=== PATIENT | male | born 1955 | race Caucasian/White ===

== ENCOUNTER 2020-09-20 13:59 | Inpatient (IN) | payer OTHER ==
[~2020-09-20] VITALS: Ht 185.4 cm; Wt 99.0 kg
[~2020-09-20 13:59] MED LIST: FENO145T3 PO; INDO50CA15 PO; METF10007 PO; METO-239 PO; PANT40TA77 PO; SIMV20TA18 PO
[2020-09-20] MEDS ORDERED: DEXAMETHASONE SOD PHOS 20 MG/5 ML VIAL. IV ONE (14:30)
[2020-09-20] MEDS ORDERED: IV NORMAL SALINE 1000ML BAG 1,000 ML IV ONE (14:30)
--- NOTE | 2020-09-20 14:44 | RAD ---
EXAM: CHEST ONE VIEW. HISTORY: Fever, cough. COMPARISON: 1116. FINDINGS: A frontal view of the chest is obtained. There are interstitial infiltrates in the left greater than right bases. There were similar infiltrat es in 2016. There is no pneumothorax or pleural effusion. The heart is not enlarged. There are change s of coronary artery bypass grafting. IMPRESSION: 1. Left greater than right basilar infiltrates appear chronic. These may reflect recurrent atypical p neumonia or mild pulmonary edema, or interstitial lung disease. Electronically signed by: Urban Devlin MD (09/20/2020 2:42 PM) [id number]
[2020-09-20 15:08] LABS: BASO % 0 % (0-3); EOS % 0 % (0-3); HEMATOCRIT 44.3 % (39.0-53.0); HEMOGLOBIN 15.5 g/dL (13.0-17.5); LYMPH # 0.5 x10^3/uL (1.0-4.8); LYMPH % 18 % (24-48); MEAN CORPUSCULAR HEMOGLOBIN 30 pg (25-35); MEAN CORPUSCULAR HGB CONC 35 g/dL (31-37); MEAN CORPUSCULAR VOLUME 85 fL (79-100); MONO # 0.4 x10^3/uL (0.0-1.1); MONO % 13 % (0-9); NEUT % 69 % (31-73); PLATELET COUNT 105 x10^3/uL (140-400); RED BLOOD COUNT 5.23 x10^6/uL (4.30-5.70); RED CELL DISTRIBUTION WIDTH 13.8 % (11.5-14.5); WHITE BLOOD COUNT 2.9 x10^3/uL (4.0-11.0)
--- NOTE | 2020-09-20 15:27 | PHYS DOC ---
Past Medical History Past Medical History: Diabetes-Type II, GERD, High Cholesterol, Hypertension, Other Additional Past Medical Histor: GOUT (RAFYALICIA Ignacio PEOPLE MANAGER) Past Surgical History: Other Additional Past Surgical Histo: RIGHT LEG, STENT PLACEMENT (RAFYALICIA Ignacio PEOPLE MANAGER) Smoking Status: Never Smoker Alcohol Use: None Drug Use: None (ALICIA HILLMAN Ignacio PEOPLE MANAGER) General Adult EDM: Chief Complaint: SHORTNESS OF BREATH HPI: HPI: Patient is a 65 year old male with history of diabetes type 2, hypertension, high cholesterol, who presents today complaining of Covid symptoms. Patient states he got diagnosed with COVID-19 09/11/2020. He states since then he has had increased cough, shortness of breath, vomiting and diarrhea. He states symptoms got worse this morning. He states the and other family members have similar symptoms. Patient is unvaccinated against COVID-19. (ALICIA HILLMAN Ignacio PEOPLE MANAGER) Review of Systems: Review of Systems: Constitutional: Reports fever Eyes: Denies change in visual acuity. [] HENT: Denies nasal congestion or sore throat. [] Respiratory: Reports cough and shortness of breath. [] Cardiovascular: Denies chest pain or edema. [] GI: Reports vomiting and diarrhea. Denies abdominal pain, nausea, vomiting, bloody stools or diarrhea. [] : Denies dysuria. [] Musculoskeletal: Denies back pain or joint pain. [] Integument: Denies rash. [] Neurologic: Denies headache, focal weakness or sensory changes. [] Psychiatric: Denies depression or anxiety. [] (RUSSELJCChagoALICIA Pierre PEOPLE MANAGER) Heart Score: C/O Chest Pain: N/A Risk Factors: Risk Factors: DM, Current or recent (<one month) smoker, HTN, HLP, family history of CAD, obesity. Risk Scores: Score 0 - 3: 2.5% MACE over next 6 weeks - Discharge Home Score 4 - 6: 20.3% MACE over next 6 weeks - Admit for Clinical Observation Score 7 - 10: 72.7% MACE over next 6 weeks - Early Invasive Strategies (ALICIA HILLMAN PEOPLE MANAGER) Current Medications: Current Medications Medications (Trade) Dose Ordered Sig/Khadar Start Time Stop Time Status Last Admin Dose Admin Acetaminophen (Tylenol) 1,000 mg 1X ONCE 09/20/20 15:30 09/20/20 15:31 Dexamethasone Sodium Phosphate (Decadron) 10 mg 1X ONCE 09/20/20 14:30 09/20/20 14:31 DC 09/20/20 14:50 10 MG Piperacillin Sod/ Tazobactam Sod 3.375 gm/Sodium Chloride 50 ml @ 100 mls/hr 1X ONCE 09/20/20 15:30 09/20/20 15:59 Sodium Chloride 1,000 ml @ 1,000 mls/hr 1X ONCE 09/20/20 14:30 09/20/20 15:29 09/20/20 14:45 1,000 MLS/HR (ALICIA HILLMAN PEOPLE MANAGER) Allergies: Allergies: Allergies Coded Allergies Type Severity Reaction Last Updated Verified No Known Drug Allergies 11/20/15 No (ALICIA HILLMAN PEOPLE MANAGER) Physical Exam: PE: Constitutional: Well developed, well nourished, no acute distress, non-toxic appearance. [] HENT: Normocephalic, atraumatic, bilateral external ears normal, oropharynx moist, no oral exudates, nose normal. [] Eyes: PERRLA, EOMI, conjunctiva normal, no discharge. [] Neck: Normal range of motion, no tenderness, supple, no stridor. [] Cardiovascular:Heart rate regular rhythm Lungs & Thorax: Hypoxic, diminished breath sounds Abdomen: Bowel sounds normal, soft, no tenderness, no masses, no pulsatile masses. [] Skin: Warm, dry, no erythema, no rash. [] Back: No tenderness, no CVA tenderness. [] Extremities: No tenderness, no cyanosis, no clubbing, ROM intact, no edema. [] Neurologic: Alert and oriented X 3, normal motor function, normal sensory function, no focal deficits noted. [] Psychologic: Affect normal, judgement normal, mood normal. [] (ALICIA HILLMAN PEOPLE MANAGER) Current Patient Data: Labs: Laboratory Tests Test 09/20/20 14:54 White Blood Count 2.9 x10^3/uL (4.0-11.0) L Red Blood Count 5.23 x10^6/uL (4.30-5.70) Hemoglobin 15.5 g/dL (13.0-17.5) Hematocrit 44.3 % (39.0-53.0) Mean Corpuscular Volume 85 fL (79-100) Mean Corpuscular Hemoglobin 30 pg (25-35) Mean Corpuscular Hemoglobin Concent 35 g/dL (31-37) Red Cell Distribution Width 13.8 % (11.5-14.5) Platelet Count 105 x10^3/uL (140-400) L Neutrophils (%) (Auto) 69 % (31-73) Lymphocytes (%) (Auto) 18 % (24-48) L Monocytes (%) (Auto) 13 % (0-9) H Eosinophils (%) (Auto) 0 % (0-3) Basophils (%) (Auto) 0 % (0-3) Neutrophils # (Auto) 2.0 x10^3/uL (1.8-7.7) Lymphocytes # (Auto) 0.5 x10^3/uL (1.0-4.8) L Monocytes # (Auto) 0.4 x10^3/uL (0.0-1.1) Eosinophils # (Auto) 0.0 x10^3/uL (0.0-0.7) Basophils # (Auto) 0.0 x10^3/uL (0.0-0.2) Laboratory Tests 09/20/20 14:54 Vital Signs: Vital Signs Date Time Temp Pulse Resp B/P (MAP) Pulse Ox O2 Delivery O2 Flow Rate FiO2 09/20/20 14:14 102.5 83 22 151/70 95 Nasal Cannula 3.0 102.5 (ALICIA HILLMAN PEOPLE MANAGER) EKG: EK interpreted by Dr. Moralez, sinus rhythm heart rate 82 no STEMI (ALICIA HILLMAN PEOPLE MANAGER) Radiology/Procedures: Radiology/Procedures: []PROCEDURE: PORTABLE CHEST 1V EXAM: CHEST ONE VIEW. HISTORY: Fever, cough. COMPARISON: 1116. FINDINGS: A frontal view of the chest is obtained. There are interstitial infiltrates in the left greater than right bases. There were similar infiltrates in 2016. There is no pneumothorax or pleural effusion. The heart is not enlarged. There are changes of coronary artery bypass grafting. IMPRESSION: 1. Left greater than right basilar infiltrates appear chronic. These may reflect recurrent atypical pneumonia or mild pulmonary edema, or interstitial lung disease. Electronically signed by: Urban Devlin MD (09/20/2020 2:42 PM) [id number] DICTATED and SIGNED BY: JOE DEVLIN MD DATE: 09/20/20 [id number] (ALICIA HILLMAN APRN) Course & Med Decision Making: Course & Med Decision Making Pertinent Labs and Imaging studies reviewed. (See chart for details) This is a 65-year-old male patient Covid positive presented today with worsening cough, shortness of breath, fever, vomiting and diarrhea. Patient was diagnosed with COVID-19 on 09/11/2020. Vitals on arrival to the ED temperature 102.5, heart rate 83, respiration 22, O2 sats 89% on room air, patient was put on 2 L of oxygen currently 95%. Blood pressure 151/70. CBC with a WBC of 2.9, CMP with nothing really acute Chest x-ray noted for chronic pneumonia Patient was given IV fluids, Zosyn, Tylenol, Decadron. Spoke to Dr. Ramirez who accepted patient for admission. (ALICIA HILLMAN APRN) Dragon Disclaimer: Dragon Disclaimer: This electronic medical record was generated, in whole or in part, using a voice recognition dictation system. 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 I was available for consultation as needed during the patient's visit in the emergency department. I agree with the clinical impression, plan, and disposition. (DIAZ MORALEZ DO) ALICIA HILLMAN APRN Sep 20, 2020 15:27 DIAZ MORALEZ DO Sep 21, 2020 14:17
[2020-09-20] MEDS ORDERED: PIPERACILLIN/TAZOBACTAM 3.375 GM in IV NORMAL SALINE 50ML 50 ML IV ONE (15:30)
[2020-09-20] MEDS ORDERED: ACETAMINOPHEN 500 MG TABLET PO ONE (15:30)
[2020-09-20 15:32] LABS: CALCIUM 8.6 mg/dL (8.5-10.1); CREATININE 1.1 mg/dL (0.7-1.3); GFR 67.6; POTASSIUM 3.3 mmol/L (3.5-5.1)
[2020-09-20 15:38] LABS: ALBUMIN 3.1 g/dL (3.4-5.0); ALBUMIN/GLOBULIN RATIO 0.8 (1.0-1.7); MAGNESIUM 1.9 mg/dL (1.8-2.4); TOTAL BILIRUBIN 0.6 mg/dL (0.2-1.0)
[2020-09-20] MEDS ORDERED: ACETAMINOPHEN 325 MG TABLET. PO PRN (15:45)
[2020-09-20] MEDS ORDERED: ONDANSETRON PF 4 MG/2 ML VIAL. IVP PRN ×2 (15:45→17:00)
[2020-09-20] MEDS ORDERED: DEXTROSE 50% 25 GM / 50ML DISP.SYRIN. IV PRN (15:45)
[2020-09-20] MEDS ORDERED: MORPHINE SULFATE 2 MG/ML INJ. IVP PRN (15:45)
--- NOTE | 2020-09-20 16:06 | EKG ---
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
[2020-09-20 16:15] VITALS: BP 155/67
[2020-09-20] MEDS ORDERED: guaiFENesin/CODEINE 100mg/10mg 5 ML LIQUID PO PRN (17:00)
[2020-09-20] MEDS ORDERED: PIP/TAZO PER PHARMACY MC PRN (17:00)
[2020-09-20] MEDS ORDERED: oxyCODONE/APAP 5/325 1 TAB TABLET PO PRN ×2 (17:00)
[2020-09-20] MEDS ORDERED: AZITHROMYCIN 250 MG TABLET. PO ONE (17:00)
[2020-09-20] MEDS ORDERED: ZOLPIDEM 5 MG TABLET. PO PRN (17:00)
[2020-09-20] MEDS ORDERED: CALCIUM CARBONATE 500 MG TAB.CHEW PO PRN (17:00)
[2020-09-20] MEDS ORDERED: ELECTROLYTE (NON-ICU) PROTOCOL. MC PRN (17:00)
[2020-09-20] MEDS ORDERED: POTASSIUM CHLORIDE 20 MEQ TABLET.ER. PO ONE (17:00)
[2020-09-20] MEDS: ENOXAPARIN 40 MG/0.4 ML SYRINGE. SQ SCH (17:35)
[2020-09-20] MEDS: PIPERACILLIN/TAZOBACTAM 3.375 GM in IV NORMAL SALINE 50ML 50 ML IV SCH (17:35)
[2020-09-20] MEDS: INSULIN LISPRO 300 UNITS/3 ML VIAL. SQ SCH (17:43)
[2020-09-20 19:00] VITALS: BP 136/66
--- NOTE | 2020-09-20 19:26 | PDOC1 ---
History and Physical Date of Service: DOS: DATE: 09/20/20 TIME: 19:18 Chief Complaint: Problems: (1) DM2 (diabetes mellitus, type 2) (2) Lab test positive for detection of COVID-19 virus (3) COVID (4) Bilateral pulmonary infiltrates on CXR (5) Hypoxia (6) Fever Chief Complain: Shortness of breath, cough History of Present Illness: HPI: Patient is a 65-year-old white male presenting today due to worsening cough and shortness of breath; patient also experiencing vomiting and diarrhea. Patient was recently diagnosed with COVID-19 on September 11 and has been doing well since that until a few days ago when his symptoms acutely worsened this morning. Has not received Covid vaccine. Close contacts at home have very similar symptoms. History notable for hypertension, type 2 diabetes, hyperlipidemia, GERD. Past Medical/Surgical History: PMH/PSH: Type 2 diabetes, hypertension, hyperlipidemia, GERD Allergies: Allergies: Coded Allergies: No Known Drug Allergies (Unverified , 11/20/15) Family History: Family History: Noncontributory Social History: Social History: Denies alcohol tobacco drug use Current Medications: Current Medications Current Medications Sodium Chloride 1,000 ml @ 1,000 mls/hr 1X ONCE IV Last administered on 09/20/20at 14:45; Start 09/20/20 at 14:30; Stop 09/20/20 at 15:29; Status DC Dexamethasone Sodium Phosphate (Decadron) 10 mg 1X ONCE IV Last administered on 09/20/20at 14:50; Start 09/20/20 at 14:30; Stop 09/20/20 at 14:31; Status DC Piperacillin Sod/ Tazobactam Sod 3.375 gm/Sodium Chloride 50 ml @ 100 mls/hr 1X ONCE IV Last administered on 09/20/20at 15:22; Start 09/20/20 at 15:30; Stop 09/20/20 at 15:59; Status DC Acetaminophen (Tylenol) 1,000 mg 1X ONCE PO Last administered on 09/20/20at 15:22; Start 09/20/20 at 15:30; Stop 09/20/20 at 15:31; Status DC Ondansetron HCl (Zofran) 4 mg PRN Q8HRS PRN IVP NAUSEA/VOMITING; Start 09/20/20 at 15:45; Stop 09/20/20 at 17:11; Status DC Morphine Sulfate (Morphine Sulfate) 2 mg PRN Q2HR PRN IVP PAIN; Start 09/20/20 at 15:45; Stop 09/21/20 at 15:44 Acetaminophen (Tylenol) 650 mg PRN Q4HRS PRN PO FEVER > 100.3'F; Start 09/20/20 at 15:45; Stop 09/21/20 at 15:44; Status Cancel Insulin Human Lispro (HumaLOG) 0-5 UNITS TIDWMEALS SQ Last administered on 09/20/20at 17:43; Start 09/20/20 at 17:00 Dextrose (Dextrose 50%-Water Syringe) 12.5 gm PRN Q15MIN PRN IV SEE COMMENTS; Start 09/20/20 at 15:45 Ondansetron HCl (Zofran) 4 mg PRN Q6HRS PRN IVP NAUSEA/VOMITING; Start 09/20/20 at 17:00 Calcium Carbonate/ Glycine (Tums) 500 mg PRN Q3HRS PRN PO UPSET STOMACH; Start 09/20/20 at 17:00 Zolpidem Tartrate (Ambien) 5 mg PRN QHS PRN PO INSOMNIA, MAY REPEAT IN 1HR; Start 09/20/20 at 17:00 Info (Non-Icu Electrolyte Protocol) 1 ea PRN DAILY PRN MC SEE COMMENTS; Start 09/20/20 at 17:00 Oxycodone/ Acetaminophen (Percocet 5/325) 1 tab PRN Q4HRS PRN PO MILD PAIN, 1ST CHOICE; Start 09/20/20 at 17:00 Oxycodone/ Acetaminophen (Percocet 5/325) 2 tab PRN Q4HRS PRN PO MODERATE PAIN, SEVERE PAIN; Start 09/20/20 at 17:00 Acetaminophen (Tylenol) 650 mg PRN Q6HRS PRN PO Headaches, Temp > 101.5F; Start 09/20/20 at 17:00 Senna/Docusate Sodium (Senna Plus) 1 tab BID PO ; Start 09/20/20 at 21:00 Enoxaparin Sodium (Lovenox 40mg Syringe) 40 mg Q12HR SQ Last administered on 09/20/20at 17:35; Start 09/20/20 at 17:00 Potassium Chloride (Klor-Con) 40 meq 1X ONCE PO Last administered on 09/20/20at 17:34; Start 09/20/20 at 17:00; Stop 09/20/20 at 17:06; Status DC Piperacillin Sod/ Tazobactam Sod (Zosyn Per Pharmacy) 1 each PRN DAILY PRN MC SEE COMMENTS; Start 09/20/20 at 17:00 Azithromycin (Zithromax) 500 mg 1X ONCE PO Last administered on 09/20/20at 17:34; Start 09/20/20 at 17:00; Stop 09/20/20 at 17:07; Status DC Dexamethasone Sodium Phosphate (Decadron) 6 mg DAILY IVP ; Start 09/21/20 at 09:00 Guaifenesin/ Codeine Phosphate (Robitussin Ac) 5 ml PRN Q6HRS PRN PO COUGH; Start 09/20/20 at 17:00 Multivitamins (Thera M Plus) 1 tab DAILY PO ; Start 09/21/20 at 09:00 Aspirin (Aspirin Chewable) 81 mg DAILYWBKFT PO ; Start 09/21/20 at 08:00 Metoprolol Succinate (Toprol Xl) 12.5 mg HS PO ; Start 09/20/20 at 21:00 Pantoprazole Sodium (Protonix) 40 mg DAILYAC PO ; Start 09/21/20 at 07:30 Simvastatin (Zocor) 20 mg QHS PO ; Start 09/20/20 at 21:00 Piperacillin Sod/ Tazobactam Sod 3.375 gm/Sodium Chloride 50 ml @ 100 mls/hr Q6HRS IV Last administered on 09/20/20at 17:35; Start 09/20/20 at 18:00 Active Scripts Active Reported Indomethacin 50 Mg Capsule 50 Mg PO Q6-8HRS PRN Fenofibrate (Fenofibrate Nanocrystallized) 145 Mg Tablet 1 Tab PO DAILY Pantoprazole Sodium (Pantoprazole Sodium) 40 Mg Tablet.dr 40 PO DAILY Metoprolol Succinate ( Xl ) (Metoprolol Succinate) 25 Mg Tab.er.24h 0.5 Tab PO HS Simvastatin 20 Mg Tablet 1 Tab PO QHS ROS: Review of Systems Review of System Negative unless noted in HPI Physical Exam: Vital Signs: Vital Signs Date Time Temp Pulse Resp B/P (MAP) Pulse Ox O2 Delivery O2 Flow Rate FiO2 09/20/20 17:04 Nasal Cannula 3.0 09/20/20 16:15 100.5 80 20 155/67 (96) 93 100.5 Physcial Exam: GEN: Patient mild respiratory distress HEENT: Normal cephalic, atraumatic, external auditory canals are patent EYES: Extraocular muscles are intact MUSCULOSKELETAL: Well developed , well nourished, good range of motion ENDOCRINE: No thyromegaly was palpated LYMPHATICS: No cervical chain or axillary nodes were noted HEMATOPOIETIC: No bruising NECK: Supple, no JVD, no thyromegaly was noted LUNGS: Patient requiring supplemental O2, coarse breath sounds, mildly labored respirations HEART: RRR, S1, S2 present. Peripheral pulses intact, no obvious murmurs noted ABDOMEN: Soft, nontender. Positive bowel sounds, no organomegaly, normal bowel sounds EXTREMITIES: Without clubbing, cyanosis, or edema. Pedal pulses intact. NEUROLOGIC: Normal speech and tone. A&O x 3, moves all extremities, no obvious focal deficits PSYCHIATRIC: Normal affect, normal mood. Stable SKIN: No ulcerations or rashes, good skin turgor, no jaundice VASCULAR: Good capillary refill, neurovascular bundle appears to be intact Labs: Labs: Laboratory Tests Test 09/20/20 14:54 09/20/20 17:16 White Blood Count 2.9 x10^3/uL (4.0-11.0) Red Blood Count 5.23 x10^6/uL (4.30-5.70) Hemoglobin 15.5 g/dL (13.0-17.5) Hematocrit 44.3 % (39.0-53.0) Mean Corpuscular Volume 85 fL (79-100) Mean Corpuscular Hemoglobin 30 pg (25-35) Mean Corpuscular Hemoglobin Concent 35 g/dL (31-37) Red Cell Distribution Width 13.8 % (11.5-14.5) Platelet Count 105 x10^3/uL (140-400) Neutrophils (%) (Auto) 69 % (31-73) Lymphocytes (%) (Auto) 18 % (24-48) Monocytes (%) (Auto) 13 % (0-9) Eosinophils (%) (Auto) 0 % (0-3) Basophils (%) (Auto) 0 % (0-3) Neutrophils # (Auto) 2.0 x10^3/uL (1.8-7.7) Lymphocytes # (Auto) 0.5 x10^3/uL (1.0-4.8) Monocytes # (Auto) 0.4 x10^3/uL (0.0-1.1) Eosinophils # (Auto) 0.0 x10^3/uL (0.0-0.7) Basophils # (Auto) 0.0 x10^3/uL (0.0-0.2) Sodium Level 135 mmol/L (136-145) Potassium Level 3.3 mmol/L (3.5-5.1) Chloride Level 100 mmol/L (98-107) Carbon Dioxide Level 21 mmol/L (21-32) Anion Gap 14 (6-14) Blood Urea Nitrogen 13 mg/dL (8-26) Creatinine 1.1 mg/dL (0.7-1.3) Estimated GFR (Cockcroft-Gault) 67.6 BUN/Creatinine Ratio 12 (6-20) Glucose Level 163 mg/dL (70-99) Lactic Acid Level 1.4 mmol/L (0.4-2.0) Calcium Level 8.6 mg/dL (8.5-10.1) Magnesium Level 1.9 mg/dL (1.8-2.4) Total Bilirubin 0.6 mg/dL (0.2-1.0) Aspartate Amino Transf (AST/SGOT) 70 U/L (15-37) Alanine Aminotransferase (ALT/SGPT) 48 U/L (16-63) Alkaline Phosphatase 46 U/L (46-116) Troponin I Quantitative < 0.017 ng/mL (0.000-0.055) RB-Ecp-P-Type Natriuretic Peptide 184 pg/mL (0-124) Total Protein 7.0 g/dL (6.4-8.2) Albumin 3.1 g/dL (3.4-5.0) Albumin/Globulin Ratio 0.8 (1.0-1.7) Thyroid Stimulating Hormone (TSH) 2.635 uIU/mL (0.358-3.74) Glucose (Fingerstick) 171 mg/dL (70-99) Laboratory Tests Test 09/20/20 14:54 09/20/20 17:16 White Blood Count 2.9 x10^3/uL (4.0-11.0) Red Blood Count 5.23 x10^6/uL (4.30-5.70) Hemoglobin 15.5 g/dL (13.0-17.5) Hematocrit 44.3 % (39.0-53.0) Mean Corpuscular Volume 85 fL (79-100) Mean Corpuscular Hemoglobin 30 pg (25-35) Mean Corpuscular Hemoglobin Concent 35 g/dL (31-37) Red Cell Distribution Width 13.8 % (11.5-14.5) Platelet Count 105 x10^3/uL (140-400) Neutrophils (%) (Auto) 69 % (31-73) Lymphocytes (%) (Auto) 18 % (24-48) Monocytes (%) (Auto) 13 % (0-9) Eosinophils (%) (Auto) 0 % (0-3) Basophils (%) (Auto) 0 % (0-3) Neutrophils # (Auto) 2.0 x10^3/uL (1.8-7.7) Lymphocytes # (Auto) 0.5 x10^3/uL (1.0-4.8) Monocytes # (Auto) 0.4 x10^3/uL (0.0-1.1) Eosinophils # (Auto) 0.0 x10^3/uL (0.0-0.7) Basophils # (Auto) 0.0 x10^3/uL (0.0-0.2) Sodium Level 135 mmol/L (136-145) Potassium Level 3.3 mmol/L (3.5-5.1) Chloride Level 100 mmol/L (98-107) Carbon Dioxide Level 21 mmol/L (21-32) Anion Gap 14 (6-14) Blood Urea Nitrogen 13 mg/dL (8-26) Creatinine 1.1 mg/dL (0.7-1.3) Estimated GFR (Cockcroft-Gault) 67.6 BUN/Creatinine Ratio 12 (6-20) Glucose Level 163 mg/dL (70-99) Lactic Acid Level 1.4 mmol/L (0.4-2.0) Calcium Level 8.6 mg/dL (8.5-10.1) Magnesium Level 1.9 mg/dL (1.8-2.4) Total Bilirubin 0.6 mg/dL (0.2-1.0) Aspartate Amino Transf (AST/SGOT) 70 U/L (15-37) Alanine Aminotransferase (ALT/SGPT) 48 U/L (16-63) Alkaline Phosphatase 46 U/L (46-116) Troponin I Quantitative < 0.017 ng/mL (0.000-0.055) LK-Hzg-I-Type Natriuretic Peptide 184 pg/mL (0-124) Total Protein 7.0 g/dL (6.4-8.2) Albumin 3.1 g/dL (3.4-5.0) Albumin/Globulin Ratio 0.8 (1.0-1.7) Thyroid Stimulating Hormone (TSH) 2.635 uIU/mL (0.358-3.74) Glucose (Fingerstick) 171 mg/dL (70-99) Assessment/Plan Assessment/Plan Patient presenting today due to worsening respiratory symptoms in light of recent Covid positive Acute hypoxic respiratory failure secondary to COVID-19 infection, nausea vomiting diarrhea, type 2 diabetes, hypertension, hyperlipidemia -Patient originally positive for Covid on September 11, presented here today due to acutely worsening symptoms -Does not use oxygen at home currently requiring 3 L here -Starting antibiotics with Zosyn and azithromycin -Pharmacy contacted to start remdesivir -Received 10 Decadron in emergency room, will start with 6 mg daily in the morning -Supplemental oxygen as needed -Symptomatic treatment for nausea vomiting diarrhea -Home meds resumed as indicated; started patient on sliding scale insulin -DVT prophylaxis -Diabetic diet -Plan of care discussed with bedside RN Justifications for Admission Other Justification ALCIDES PINEDA MD Sep 20, 2020 19:26
[2020-09-20] MEDS ORDERED: FLUT16SP NS (19:29)
[2020-09-20] MEDS ORDERED: MONT10TA20 PO (19:29)
[2020-09-20] MEDS ORDERED: FLUT1BLS3 INH (19:29)
[2020-09-20] MEDS ORDERED: BENZ200C47 PO (19:29)
[2020-09-20] MEDS ORDERED: LORA10TA3 PO (19:29)
[2020-09-20] MEDS ORDERED: METF10007 PO (19:29)
[2020-09-20] MEDS ORDERED: SEMA7TAB PO (19:29)
[2020-09-20] MEDS ORDERED: DAPA10TA PO (19:29)
[2020-09-20] MEDS ORDERED: ICOS1CAP2 PO (19:29)
[2020-09-20] MEDS ORDERED: REMDESIVIR LOAD in IV NORMAL SALINE 250ML TV IV ONE (20:00)
[2020-09-20] MEDS: SENNOSIDES/DOCUSATE 8.6/50MG TABLET. PO SCH (21:00)
[2020-09-20] MEDS: SIMVASTATIN 20 MG TABLET PO SCH (21:14)
[2020-09-20] MEDS: METOPROLOL SUCC 24HR ER 25 MG TAB.ER.24H. PO SCH (21:15)
[2020-09-20 23:00] VITALS: BP 119/70
[2020-09-21] MEDS: PIPERACILLIN/TAZOBACTAM 3.375 GM in IV NORMAL SALINE 50ML 50 ML IV SCH ×4 (01:10→17:53)
[2020-09-21 03:00] VITALS: BP 115/65
[2020-09-21 03:00] LABS: BASO % 0 % (0-3); EOS % 0 % (0-3); HEMATOCRIT 44.6 % (39.0-53.0); HEMOGLOBIN 15.3 g/dL (13.0-17.5); LYMPH # 0.4 x10^3/uL (1.0-4.8); LYMPH % 28 % (24-48); MEAN CORPUSCULAR HEMOGLOBIN 30 pg (25-35); MEAN CORPUSCULAR HGB CONC 34 g/dL (31-37); MEAN CORPUSCULAR VOLUME 87 fL (79-100); MONO # 0.1 x10^3/uL (0.0-1.1); MONO % 8 % (0-9); NEUT # 0.9 x10^3/uL (1.8-7.7); NEUT % 63 % (31-73); PLATELET COUNT 96 x10^3/uL (140-400); RED BLOOD COUNT 5.12 x10^6/uL (4.30-5.70); RED CELL DISTRIBUTION WIDTH 13.9 % (11.5-14.5)
[2020-09-21 03:13] LABS: GFR 61.1
[2020-09-21 03:15] LABS: ALBUMIN 2.9 g/dL (3.4-5.0); ALBUMIN/GLOBULIN RATIO 0.9 (1.0-1.7); CALCIUM 8.3 mg/dL (8.5-10.1); CREATININE 1.2 mg/dL (0.7-1.3); POTASSIUM 4.3 mmol/L (3.5-5.1); TOTAL BILIRUBIN 0.4 mg/dL (0.2-1.0); TOTAL PROTEIN 6.2 g/dL (6.4-8.2)
[2020-09-21 04:42] LABS: WHITE BLOOD COUNT 1.4 x10^3/uL (4.0-11.0)
[2020-09-21 07:00] VITALS: BP 131/74
[2020-09-21] MEDS: ASPIRIN CHEWABLE 81 MG TABLET. PO SCH (08:47)
[2020-09-21] MEDS: PANTOPRAZOLE 40 MG TABLET.DR. PO SCH (08:47)
[2020-09-21] MEDS: MULTIVITAMIN with MINERAL TABLET. PO SCH (08:47)
[2020-09-21] MEDS: ENOXAPARIN 40 MG/0.4 ML SYRINGE. SQ SCH ×2 (08:47→22:52)
[2020-09-21] MEDS: DEXAMETHASONE SOD PHOS 4 MG/ML VIAL IVP SCH (08:48)
[2020-09-21] MEDS: SENNOSIDES/DOCUSATE 8.6/50MG TABLET. PO SCH ×2 (09:00→21:32)
[2020-09-21] MEDS: INSULIN LISPRO 300 UNITS/3 ML VIAL. SQ SCH ×3 (09:00→17:55)
[2020-09-21 11:00] VITALS: BP 132/69
--- NOTE | 2020-09-21 11:14 | CONS ---
ATTENDING PHYSICIAN: Dr. Ramirez. REASON FOR CONSULTATION: Respiratory failure, COVID-19 viral pneumonia. HISTORY OF PRESENT ILLNESS: The patient is a 65-year-old male who has no significant tobacco history. He was recently diagnosed with COVID-19 on 09/11. He started to have some increasing dyspnea and hypoxia. He is now being hospitalized. He is currently on oxygen via high-flow cannula at 5 liters. His chest x-ray reveals faint bilateral interstitial infiltrates. The patient is initiated on remdesivir as well as IV steroids. I have been asked to see him for further evaluation. He denies any headaches, nausea, vomiting, diarrhea, dysuria, or focal weakness. PAST MEDICAL HISTORY: Type 2 diabetes, hyperlipidemia, GERD and hypertension. PAST SURGICAL HISTORY: No recent surgeries. ALLERGIES: None. MEDICATIONS: Reviewed as listed in the MRAD. REVIEW OF SYSTEMS: A 12-point system obtained. Pertinent positives discussed in my history of presence illness, otherwise noncontributory. All systems that were negative were reviewed as well. SOCIAL HISTORY: Denies significant tobacco use. PHYSICAL EXAMINATION: VITAL SIGNS: Vital signs were reviewed. Pulse ox 96% on 5 liters, afebrile. Visual exam done due to COVID-19. No obvious respiratory distress. No paradoxical breathing. ABDOMEN: He is obese. EXTREMITIES: No leg edema. LABORATORY DATA: Labs were reviewed. White cell count 1.4, hemoglobin 15.3, platelets are 96. BUN 15, creatinine 1.2. Albumin 2.9. IMPRESSION: 1. Acute hypoxic respiratory failure secondary to COVID-19 viral pneumonia/acute lung injury. 2. Abnormal chest x-ray consistent with mild infiltrates favoring COVID-19 viral pneumonia. 3. Leukopenia and thrombocytopenia due to COVID-19 viral pneumonia. 4. No significant tobacco history. RECOMMENDATIONS: 1. Continue present oxygen at 6 liters, keep saturation 92 and above. 2. Finished a course of remdesivir. 3. Continue dexamethasone. 4. We will continue empiric antibiotic. 5. The patient's platelet counts are low. We will closely monitor while on Lovenox. 6. Discussed with RN. SMITH/BLU DR: Jessie TID: [id number]
--- NOTE | 2020-09-21 11:14 | PDOC ---
[employer] PROGRESS NOTE Date of Service DOS: DATE: 09/21/20 TIME: 11:12 Chief Complaint Chief Complaint Acute COVID-19 pneumonia Acute hypoxic respiratory failure History of diabetes mellitus type 2 History of hypertension History of dyslipidemia Admit to medicine for further management Pulmonology consult Continue IV thiamine and vitamin C IV 4 mg dexamethasone Daily Pending ferritin, LDH, CRP, D-dimer labs Titrate O2 supplementation to maintain O2 saturation greater than 92% Lovenox for DVT prophylaxis Protonix GI prophylaxis ADA diet Full code Discussed with RN and SW Disposition patient management as above Surrogate decision maker is the Jennidaphne Morrissey History of Present Illness History of Present Illness 65-year-old white male presenting today due to worsening cough and shortness of breath; patient also experiencing vomiting and diarrhea. Patient was recently diagnosed with COVID-19 on September 11 and has been doing well since that until a few days ago when his symptoms acutely worsened this morning. Has not received Covid vaccine. Close contacts at home have very similar symptoms. History notable for hypertension, type 2 diabetes, hyperlipidemia, GERD. 09/21/2020 No acute events overnight. Patient saturating 98% on 10 L nasal cannula. If patient requires increasing O2 requirements may consider pulmonology consult for further management. Continue Covid treatment protocol. Currently on Remdesi vir. Patient's chart, labs, images were reviewed and discussed with RN Vitals/I&O Vitals/I&O: Vital Signs Date Time Temp Pulse Resp B/P (MAP) Pulse Ox O2 Delivery O2 Flow Rate FiO2 09/21/20 07:00 98.0 65 18 131/74 (93) 96 Nasal Cannula 5.0 98.0 I & O 09/20/20 09/20/20 09/21/20 15:00 23:00 07:00 Intake Total 100 ml 50 ml Output Total 1000 ml Balance 100 ml -950 ml Physical Exam General: Alert, Oriented X3, Cooperative Heart: Regular rate Lungs: Wheezing Abdomen: Normal bowel sounds Extremities: No clubbing Skin: No rashes, No significant lesion Labs Labs: Laboratory Tests Test 09/20/20 14:54 09/20/20 17:16 09/20/20 20:12 09/21/20 01:45 White Blood Count 2.9 x10^3/uL (4.0-11.0) 1.4 x10^3/uL (4.0-11.0) Red Blood Count 5.23 x10^6/uL (4.30-5.70) 5.12 x10^6/uL (4.30-5.70) Hemoglobin 15.5 g/dL (13.0-17.5) 15.3 g/dL (13.0-17.5) Hematocrit 44.3 % (39.0-53.0) 44.6 % (39.0-53.0) Mean Corpuscular Volume 85 fL (79-100) 87 fL (79-100) Mean Corpuscular Hemoglobin 30 pg (25-35) 30 pg (25-35) Mean Corpuscular Hemoglobin Concent 35 g/dL (31-37) 34 g/dL (31-37) Red Cell Distribution Width 13.8 % (11.5-14.5) 13.9 % (11.5-14.5) Platelet Count 105 x10^3/uL (140-400) 96 x10^3/uL (140-400) Neutrophils (%) (Auto) 69 % (31-73) 63 % (31-73) Lymphocytes (%) (Auto) 18 % (24-48) 28 % (24-48) Monocytes (%) (Auto) 13 % (0-9) 8 % (0-9) Eosinophils (%) (Auto) 0 % (0-3) 0 % (0-3) Basophils (%) (Auto) 0 % (0-3) 0 % (0-3) Neutrophils # (Auto) 2.0 x10^3/uL (1.8-7.7) 0.9 x10^3/uL (1.8-7.7) Lymphocytes # (Auto) 0.5 x10^3/uL (1.0-4.8) 0.4 x10^3/uL (1.0-4.8) Monocytes # (Auto) 0.4 x10^3/uL (0.0-1.1) 0.1 x10^3/uL (0.0-1.1) Eosinophils # (Auto) 0.0 x10^3/uL (0.0-0.7) 0.0 x10^3/uL (0.0-0.7) Basophils # (Auto) 0.0 x10^3/uL (0.0-0.2) 0.0 x10^3/uL (0.0-0.2) Sodium Level 135 mmol/L (136-145) 140 mmol/L (136-145) Potassium Level 3.3 mmol/L (3.5-5.1) 4.3 mmol/L (3.5-5.1) Chloride Level 100 mmol/L (98-107) 103 mmol/L (98-107) Carbon Dioxide Level 21 mmol/L (21-32) 26 mmol/L (21-32) Anion Gap 14 (6-14) 11 (6-14) Blood Urea Nitrogen 13 mg/dL (8-26) 15 mg/dL (8-26) Creatinine 1.1 mg/dL (0.7-1.3) 1.2 mg/dL (0.7-1.3) Estimated GFR (Cockcroft-Gault) 67.6 61.1 BUN/Creatinine Ratio 12 (6-20) 13 (6-20) Glucose Level 163 mg/dL (70-99) 302 mg/dL (70-99) Lactic Acid Level 1.4 mmol/L (0.4-2.0) Calcium Level 8.6 mg/dL (8.5-10.1) 8.3 mg/dL (8.5-10.1) Magnesium Level 1.9 mg/dL (1.8-2.4) Total Bilirubin 0.6 mg/dL (0.2-1.0) 0.4 mg/dL (0.2-1.0) Aspartate Amino Transf (AST/SGOT) 70 U/L (15-37) 52 U/L (15-37) Alanine Aminotransferase (ALT/SGPT) 48 U/L (16-63) 44 U/L (16-63) Alkaline Phosphatase 46 U/L (46-116) 48 U/L (46-116) Troponin I Quantitative < 0.017 ng/mL (0.000-0.055) < 0.017 ng/mL (0.000-0.055) GZ-Hdx-C-Type Natriuretic Peptide 184 pg/mL (0-124) Total Protein 7.0 g/dL (6.4-8.2) 6.2 g/dL (6.4-8.2) Albumin 3.1 g/dL (3.4-5.0) 2.9 g/dL (3.4-5.0) Albumin/Globulin Ratio 0.8 (1.0-1.7) 0.9 (1.0-1.7) Procalcitonin ng/mL (0.00-0.10) Thyroid Stimulating Hormone (TSH) 2.635 uIU/mL (0.358-3.74) Glucose (Fingerstick) 171 mg/dL (70-99) 301 mg/dL (70-99) Test 09/21/20 07:39 Glucose (Fingerstick) 283 mg/dL (70-99) Assessment and Plan Assessmemt and Plan Problems Medical Problems: (1) Bilateral pulmonary infiltrates on CXR Status: Acute (2) Fever Status: Acute (3) Hypoxia Status: Acute (4) Lab test positive for detection of COVID-19 virus Status: Acute Comment Review of Relevant I have reviewed the following items lukasz (where applicable) has been applied. Medications: Current Medications Medications (Trade) Dose Ordered Sig/Khadar Route PRN Reason Start Time Stop Time Status Last Admin Dose Admin Sodium Chloride 1,000 ml @ 1,000 mls/hr 1X ONCE IV 09/20/20 14:30 09/20/20 15:29 DC 09/20/20 14:45 Dexamethasone Sodium Phosphate (Decadron) 10 mg 1X ONCE IV 09/20/20 14:30 09/20/20 14:31 DC 09/20/20 14:50 Piperacillin Sod/ Tazobactam Sod 3.375 gm/Sodium Chloride 50 ml @ 100 mls/hr 1X ONCE IV 09/20/20 15:30 09/20/20 15:59 DC 09/20/20 15:22 Acetaminophen (Tylenol) 1,000 mg 1X ONCE PO 09/20/20 15:30 09/20/20 15:31 DC 09/20/20 15:22 Insulin Human Lispro (HumaLOG) 0-5 UNITS TIDWMEALS SQ 09/20/20 17:00 09/21/20 09:00 Senna/Docusate Sodium (Senna Plus) 1 tab BID PO 09/20/20 21:00 09/20/20 21:00 Enoxaparin Sodium (Lovenox 40mg Syringe) 40 mg Q12HR SQ 09/20/20 17:00 09/21/20 08:47 Potassium Chloride (Klor-Con) 40 meq 1X ONCE PO 09/20/20 17:00 09/20/20 17:06 DC 09/20/20 17:34 Azithromycin (Zithromax) 500 mg 1X ONCE PO 09/20/20 17:00 09/20/20 17:07 DC 09/20/20 17:34 Dexamethasone Sodium Phosphate (Decadron) 6 mg DAILY IVP 09/21/20 09:00 09/21/20 08:48 Multivitamins (Thera M Plus) 1 tab DAILY PO 09/21/20 09:00 09/21/20 08:47 Aspirin (Aspirin Chewable) 81 mg DAILYWBKFT PO 09/21/20 08:00 09/21/20 08:47 Metoprolol Succinate (Toprol Xl) 12.5 mg HS PO 09/20/20 21:00 09/20/20 21:15 Pantoprazole Sodium (Protonix) 40 mg DAILYAC PO 09/21/20 07:30 09/21/20 08:47 Simvastatin (Zocor) 20 mg QHS PO 09/20/20 21:00 09/20/20 21:14 Piperacillin Sod/ Tazobactam Sod 3.375 gm/Sodium Chloride 50 ml @ 100 mls/hr Q6HRS IV 09/20/20 18:00 09/21/20 06:23 Remdesivir 200 mg/ Sodium Chloride 210 ml @ 210 mls/hr 1X ONCE IV 09/20/20 20:00 09/20/20 20:59 DC 09/20/20 21:12 Justifications for Admission Other Justification ARTHUR MCLEOD MD Sep 21, 2020 11:14
--- NOTE | 2020-09-21 11:20 | NUR ---
SW following. Discussed with RN, pt from home with , 10L, ada diet. COVID-19 positive. Pulmonology following. RN advised no SW needs at this time. SW will continue to follow.
[2020-09-21 15:30] VITALS: BP 134/76
[2020-09-21 19:00] VITALS: BP 126/67
[2020-09-21] MEDS: SIMVASTATIN 20 MG TABLET PO SCH (21:32)
[2020-09-21] MEDS: LACTOBACILLUS RHAMNOSUS GG 1 CAPSULE. PO SCH (21:32)
[2020-09-21] MEDS: REMDESIVIR 100mg in NORMAL SALINE 250ML X 4 DAYS IV SCH (21:32)
[2020-09-21] MEDS: METOPROLOL SUCC 24HR ER 25 MG TAB.ER.24H. PO SCH (21:33)
[2020-09-21] MEDS: INSULIN GLARGINE SYRINGE. SQ SCH (21:43)
[2020-09-21] MEDS: ASCORBIC ACID 1,000 MG TABLET PO SCH (22:51)
[2020-09-21 23:07] VITALS: BP 141/70
[2020-09-22] MEDS: PIPERACILLIN/TAZOBACTAM 3.375 GM in IV NORMAL SALINE 50ML 50 ML IV SCH ×5 (01:16→23:52)
[2020-09-22 03:12] VITALS: BP 123/68
[2020-09-22 07:00] VITALS: BP 121/69
--- NOTE | 2020-09-22 09:06 | PDOC ---
PULMONARY PROGRESS NOTES DATE: 09/22/20 TIME: 09:05 Subjective Denies any increased shortness of breath. Remains on high flow cannula. Vitals Vital Signs Date Time Temp Pulse Resp B/P (MAP) Pulse Ox O2 Delivery O2 Flow Rate FiO2 09/22/20 03:12 97.7 64 18 123/68 (86) 91 Nasal Cannula 97.7 09/21/20 20:00 10.0 Comments Visual exam done due to COVID-19. No paradoxical breathing. No skin rash, no leg edema General: Alert Labs Laboratory Tests Test 09/20/20 14:54 09/20/20 17:16 09/20/20 20:12 09/21/20 01:45 White Blood Count 2.9 x10^3/uL (4.0-11.0) 1.4 x10^3/uL (4.0-11.0) Red Blood Count 5.23 x10^6/uL (4.30-5.70) 5.12 x10^6/uL (4.30-5.70) Hemoglobin 15.5 g/dL (13.0-17.5) 15.3 g/dL (13.0-17.5) Hematocrit 44.3 % (39.0-53.0) 44.6 % (39.0-53.0) Mean Corpuscular Volume 85 fL (79-100) 87 fL (79-100) Mean Corpuscular Hemoglobin 30 pg (25-35) 30 pg (25-35) Mean Corpuscular Hemoglobin Concent 35 g/dL (31-37) 34 g/dL (31-37) Red Cell Distribution Width 13.8 % (11.5-14.5) 13.9 % (11.5-14.5) Platelet Count 105 x10^3/uL (140-400) 96 x10^3/uL (140-400) Neutrophils (%) (Auto) 69 % (31-73) 63 % (31-73) Lymphocytes (%) (Auto) 18 % (24-48) 28 % (24-48) Monocytes (%) (Auto) 13 % (0-9) 8 % (0-9) Eosinophils (%) (Auto) 0 % (0-3) 0 % (0-3) Basophils (%) (Auto) 0 % (0-3) 0 % (0-3) Neutrophils # (Auto) 2.0 x10^3/uL (1.8-7.7) 0.9 x10^3/uL (1.8-7.7) Lymphocytes # (Auto) 0.5 x10^3/uL (1.0-4.8) 0.4 x10^3/uL (1.0-4.8) Monocytes # (Auto) 0.4 x10^3/uL (0.0-1.1) 0.1 x10^3/uL (0.0-1.1) Eosinophils # (Auto) 0.0 x10^3/uL (0.0-0.7) 0.0 x10^3/uL (0.0-0.7) Basophils # (Auto) 0.0 x10^3/uL (0.0-0.2) 0.0 x10^3/uL (0.0-0.2) Sodium Level 135 mmol/L (136-145) 140 mmol/L (136-145) Potassium Level 3.3 mmol/L (3.5-5.1) 4.3 mmol/L (3.5-5.1) Chloride Level 100 mmol/L (98-107) 103 mmol/L (98-107) Carbon Dioxide Level 21 mmol/L (21-32) 26 mmol/L (21-32) Anion Gap 14 (6-14) 11 (6-14) Blood Urea Nitrogen 13 mg/dL (8-26) 15 mg/dL (8-26) Creatinine 1.1 mg/dL (0.7-1.3) 1.2 mg/dL (0.7-1.3) Estimated GFR (Cockcroft-Gault) 67.6 61.1 BUN/Creatinine Ratio 12 (6-20) 13 (6-20) Glucose Level 163 mg/dL (70-99) 302 mg/dL (70-99) Lactic Acid Level 1.4 mmol/L (0.4-2.0) Calcium Level 8.6 mg/dL (8.5-10.1) 8.3 mg/dL (8.5-10.1) Magnesium Level 1.9 mg/dL (1.8-2.4) Total Bilirubin 0.6 mg/dL (0.2-1.0) 0.4 mg/dL (0.2-1.0) Aspartate Amino Transf (AST/SGOT) 70 U/L (15-37) 52 U/L (15-37) Alanine Aminotransferase (ALT/SGPT) 48 U/L (16-63) 44 U/L (16-63) Alkaline Phosphatase 46 U/L (46-116) 48 U/L (46-116) Troponin I Quantitative < 0.017 ng/mL (0.000-0.055) < 0.017 ng/mL (0.000-0.055) HM-Tmp-A-Type Natriuretic Peptide 184 pg/mL (0-124) Total Protein 7.0 g/dL (6.4-8.2) 6.2 g/dL (6.4-8.2) Albumin 3.1 g/dL (3.4-5.0) 2.9 g/dL (3.4-5.0) Albumin/Globulin Ratio 0.8 (1.0-1.7) 0.9 (1.0-1.7) Procalcitonin ng/mL (0.00-0.10) Thyroid Stimulating Hormone (TSH) 2.635 uIU/mL (0.358-3.74) Glucose (Fingerstick) 171 mg/dL (70-99) 301 mg/dL (70-99) Test 09/21/20 07:39 09/21/20 11:44 09/21/20 17:30 09/21/20 20:31 Glucose (Fingerstick) 283 mg/dL (70-99) 338 mg/dL (70-99) 335 mg/dL (70-99) 319 mg/dL (70-99) Test 09/22/20 08:05 Glucose (Fingerstick) 245 mg/dL (70-99) Laboratory Tests Test 09/21/20 11:44 09/21/20 17:30 09/21/20 20:31 09/22/20 08:05 Glucose (Fingerstick) 338 mg/dL (70-99) 335 mg/dL (70-99) 319 mg/dL (70-99) 245 mg/dL (70-99) Medications Active Scripts Medications Dose Route/Sig Max Daily Dose Days Date Category Icosapent Ethyl 1 Gm Capsule 2 Cap PO BID 09/20/20 Reported Metformin Hcl 1,000 Mg Tablet 1 Tab PO BID 09/20/20 Reported Rybelsus (Semaglutide) 7 Mg Tablet 1 Tab PO DAILY 09/20/20 Reported Farxiga (Dapagliflozin Propanediol) 10 Mg Tablet 1 Tab PO DAILY 09/20/20 Reported Trelegy Ellipta 100-62.5-25 (Fluticasone/Umeclidin/Vilanter) 1 Each Blst.w.dev 1 Puff INH DAILY 09/20/20 Reported Benzonatate 200 Mg Capsule 1 Cap PO TID PRN 09/20/20 Reported Montelukast Sodium 10 Mg Tablet 1 Tab PO DAILY 09/20/20 Reported Loratadine 10 Mg Tablet 1 Tab PO DAILY 09/20/20 Reported Fluticasone Propionate Nasal [place] (Fluticasone Propionate) 16 Gm [place].susp 1 Sprays NS BID 09/20/20 Reported Simvastatin 20 Mg Tablet 1 Tab PO QHS 11/20/15 Reported Impression . 1. Acute hypoxic respiratory failure secondary to COVID-19 viral pneumonia/acute lung injury. 2. Abnormal chest x-ray consistent with mild infiltrates favoring COVID-19 viral pneumonia. 3. Leukopenia and thrombocytopenia due to COVID-19 viral pneumonia. 4. No significant tobacco history. Plan . 1. Continue present oxygen at 6 liters, keep saturation 92 and above. 2. Finished a course of remdesivir. 3. Continue dexamethasone. 4. We will continue empiric antibiotic. 5. The patient's platelet counts are low. We will closely monitor while on Lovenox. 6. Discussed with SOM. ERIC GOTTLIEB MD Sep 22, 2020 09:06
[2020-09-22] MEDS: ZINC SULFATE 220 MG CAPSULE. PO SCH (09:47)
[2020-09-22] MEDS: PANTOPRAZOLE 40 MG TABLET.DR. PO SCH (09:47)
[2020-09-22] MEDS: ASCORBIC ACID 1,000 MG TABLET PO SCH ×3 (09:47→20:28)
[2020-09-22] MEDS: MULTIVITAMIN with MINERAL TABLET. PO SCH (09:47)
[2020-09-22] MEDS: SENNOSIDES/DOCUSATE 8.6/50MG TABLET. PO SCH ×2 (09:47→20:28)
[2020-09-22] MEDS: ASPIRIN CHEWABLE 81 MG TABLET. PO SCH (09:47)
[2020-09-22] MEDS: ENOXAPARIN 40 MG/0.4 ML SYRINGE. SQ SCH ×2 (09:47→20:29)
[2020-09-22] MEDS: DEXAMETHASONE SOD PHOS 4 MG/ML VIAL IVP SCH (09:48)
[2020-09-22] MEDS: LACTOBACILLUS RHAMNOSUS GG 1 CAPSULE. PO SCH ×2 (09:51→20:28)
[2020-09-22] MEDS: INSULIN GLARGINE SYRINGE. SQ SCH ×2 (10:06→20:29)
[2020-09-22] MEDS: INSULIN LISPRO 300 UNITS/3 ML VIAL. SQ SCH ×5 (10:06→17:10)
[2020-09-22 10:33] LABS: CALCIUM 8.4 mg/dL (8.5-10.1); CREATININE 1.1 mg/dL (0.7-1.3); GFR 67.6; MAGNESIUM 2.1 mg/dL (1.8-2.4); POTASSIUM 3.4 mmol/L (3.5-5.1)
[2020-09-22 11:00] VITALS: BP 127/73
[2020-09-22 11:04] LABS: BASO % 0 % (0-3); EOS % 0 % (0-3); HEMATOCRIT 43.7 % (39.0-53.0); HEMOGLOBIN 15.1 g/dL (13.0-17.5); LYMPH # 0.4 x10^3/uL (1.0-4.8); LYMPH % 7 % (24-48); MEAN CORPUSCULAR HEMOGLOBIN 30 pg (25-35); MEAN CORPUSCULAR HGB CONC 35 g/dL (31-37); MEAN CORPUSCULAR VOLUME 86 fL (79-100); MONO # 0.5 x10^3/uL (0.0-1.1); MONO % 9 % (0-9); NEUT # 5.4 x10^3/uL (1.8-7.7); NEUT % 85 % (31-73); PLATELET COUNT 142 x10^3/uL (140-400); RED BLOOD COUNT 5.07 x10^6/uL (4.30-5.70); RED CELL DISTRIBUTION WIDTH 13.7 % (11.5-14.5); WHITE BLOOD COUNT 6.4 x10^3/uL (4.0-11.0)
--- NOTE | 2020-09-22 12:43 | PDOC ---
[employer] PROGRESS NOTE Date of Service DOS: DATE: 09/22/20 TIME: 12:42 Chief Complaint Chief Complaint Acute COVID-19 pneumonia Acute hypoxic respiratory failure History of diabetes mellitus type 2 History of hypertension History of dyslipidemia Admit to medicine for further management Pulmonology consult Continue IV thiamine and vitamin C IV 4 mg dexamethasone Daily Pending ferritin, LDH, CRP, D-dimer labs Titrate O2 supplementation to maintain O2 saturation greater than 92% Lovenox for DVT prophylaxis Protonix GI prophylaxis ADA diet Full code Discussed with RN and SW Disposition patient management as above Surrogate decision maker is the Jennicaden Benitoshaye History of Present Illness History of Present Illness 65-year-old white male presenting today due to worsening cough and shortness of breath; patient also experiencing vomiting and diarrhea. Patient was recently diagnosed with COVID-19 on September 11 and has been doing well since that until a few days ago when his symptoms acutely worsened this morning. Has not received Covid vaccine. Close contacts at home have very similar symptoms. History notable for hypertension, type 2 diabetes, hyperlipidemia, GERD. 09/21/2020 No acute events overnight. Patient saturating 98% on 10 L nasal cannula. If patient requires increasing O2 requirements may consider pulmonology consult for further management. Continue Covid treatment protocol. Currently on Remdesi vir. Patient's chart, labs, images were reviewed and discussed with RN 09/22/2020 No acute events overnight. Patient saturating 91% on 10 L nasal cannula. Patient sitting over the side of bed and doing well and saying that he does have some shortness of breath with ambulation. Combivent inhaler ordered today. Patient's chart, labs, images were reviewed and discussed with RN Vitals/I&O Vitals/I&O: Vital Signs Date Time Temp Pulse Resp B/P (MAP) Pulse Ox O2 Delivery O2 Flow Rate FiO2 09/22/20 11:00 98.0 68 18 127/73 (91) 91 Nasal Cannula 98.0 09/22/20 08:00 10.0 I & O 09/21/20 09/21/20 09/22/20 15:00 23:00 07:00 Intake Total 300 ml 200 ml Output Total 700 ml Balance 300 ml 200 ml -700 ml Physical Exam General: Alert, Oriented X3, Cooperative Heart: Regular rate Abdomen: Normal bowel sounds Extremities: No clubbing Skin: No rashes, No significant lesion Labs Labs: Laboratory Tests Test 09/21/20 17:30 09/21/20 20:31 09/22/20 08:05 09/22/20 09:10 Glucose (Fingerstick) 335 mg/dL (70-99) 319 mg/dL (70-99) 245 mg/dL (70-99) White Blood Count 6.4 x10^3/uL (4.0-11.0) Red Blood Count 5.07 x10^6/uL (4.30-5.70) Hemoglobin 15.1 g/dL (13.0-17.5) Hematocrit 43.7 % (39.0-53.0) Mean Corpuscular Volume 86 fL (79-100) Mean Corpuscular Hemoglobin 30 pg (25-35) Mean Corpuscular Hemoglobin Concent 35 g/dL (31-37) Red Cell Distribution Width 13.7 % (11.5-14.5) Platelet Count 142 x10^3/uL (140-400) Neutrophils (%) (Auto) 85 % (31-73) Lymphocytes (%) (Auto) 7 % (24-48) Monocytes (%) (Auto) 9 % (0-9) Eosinophils (%) (Auto) 0 % (0-3) Basophils (%) (Auto) 0 % (0-3) Neutrophils # (Auto) 5.4 x10^3/uL (1.8-7.7) Lymphocytes # (Auto) 0.4 x10^3/uL (1.0-4.8) Monocytes # (Auto) 0.5 x10^3/uL (0.0-1.1) Eosinophils # (Auto) 0.0 x10^3/uL (0.0-0.7) Basophils # (Auto) 0.0 x10^3/uL (0.0-0.2) Sodium Level 143 mmol/L (136-145) Potassium Level 3.4 mmol/L (3.5-5.1) Chloride Level 107 mmol/L (98-107) Carbon Dioxide Level 21 mmol/L (21-32) Anion Gap 15 (6-14) Blood Urea Nitrogen 19 mg/dL (8-26) Creatinine 1.1 mg/dL (0.7-1.3) Estimated GFR (Cockcroft-Gault) 67.6 Glucose Level 275 mg/dL (70-99) Calcium Level 8.4 mg/dL (8.5-10.1) Magnesium Level 2.1 mg/dL (1.8-2.4) Assessment and Plan Assessmemt and Plan Problems Medical Problems: (1) Bilateral pulmonary infiltrates on CXR Status: Acute (2) Fever Status: Acute (3) Hypoxia Status: Acute (4) Lab test positive for detection of COVID-19 virus Status: Acute Comment Review of Relevant I have reviewed the following items lukasz (where applicable) has been applied. Medications: Current Medications Medications (Trade) Dose Ordered Sig/Khadar Route PRN Reason Start Time Stop Time Status Last Admin Dose Admin Remdesivir 100 mg/ Sodium Chloride 230 ml @ 460 mls/hr Q24H IV 09/21/20 20:00 09/24/20 20:29 09/21/20 21:32 Insulin Glargine (Lantus Syringe) 20 unit BID SQ 09/21/20 21:00 09/22/20 10:06 Insulin Human Lispro (HumaLOG) 0-9 UNITS TIDWMEALS SQ 09/21/20 17:00 09/22/20 10:06 Lactobacillus Rhamnosus (Culturelle) 1 cap BID PO 09/21/20 21:00 09/22/20 09:51 Ascorbic Acid (Vitamin C) 1,000 mg TID PO 09/21/20 21:00 09/22/20 09:47 Zinc Sulfate (Orazinc) 220 mg DAILY PO 09/22/20 09:00 09/22/20 09:47 Justifications for Admission Other Justification ARTHUR MCLEOD MD Sep 22, 2020 12:43
[2020-09-22 15:00] VITALS: BP 120/71
[2020-09-22 19:00] VITALS: BP 133/71
[2020-09-22] MEDS: METOPROLOL SUCC 24HR ER 25 MG TAB.ER.24H. PO SCH (20:28)
[2020-09-22] MEDS: SIMVASTATIN 20 MG TABLET PO SCH (20:28)
[2020-09-22] MEDS: REMDESIVIR 100mg in NORMAL SALINE 250ML X 4 DAYS IV SCH (20:30)
[2020-09-22 23:05] VITALS: BP 152/76
[2020-09-23] VITALS (15 sets, daily range): BP systolic 119–180; BP diastolic 62–87
[2020-09-23] MEDS: IPRATROPIUM/ALBUTEROL 20/100mcg/INH INHALER. INH PRN ×2 (03:49→09:28)
[2020-09-23] MEDS: PIPERACILLIN/TAZOBACTAM 3.375 GM in IV NORMAL SALINE 50ML 50 ML IV SCH ×3 (05:39→16:54)
--- NOTE | 2020-09-23 07:30 | NUR ---
Pt assessment completed. Pt sitting in bed alert and orientated. NC on at 15L. Pt sats 83-86%. Pt was asked to take deep breaths and sats remained in the 80s. Report was given that the pt was only requiring 11L per NC yesterday but had to be increased during the night. Non rebreather added at 15L and sats are staying around 93%. Will discuss with Dr Contreras and Kahlil when the round. Will continue to monitor closely.
[2020-09-23] MEDS: INSULIN LISPRO 300 UNITS/3 ML VIAL. SQ SCH ×6 (08:00→17:29)
[2020-09-23] MEDS: ASPIRIN CHEWABLE 81 MG TABLET. PO SCH (09:27)
[2020-09-23] MEDS: ZINC SULFATE 220 MG CAPSULE. PO SCH (09:27)
[2020-09-23] MEDS: MULTIVITAMIN with MINERAL TABLET. PO SCH (09:27)
[2020-09-23] MEDS: SENNOSIDES/DOCUSATE 8.6/50MG TABLET. PO SCH ×2 (09:27→21:00)
[2020-09-23] MEDS: PANTOPRAZOLE 40 MG TABLET.DR. PO SCH (09:28)
[2020-09-23] MEDS: DEXAMETHASONE SOD PHOS 4 MG/ML VIAL IVP SCH (09:28)
[2020-09-23] MEDS: ENOXAPARIN 40 MG/0.4 ML SYRINGE. SQ SCH ×2 (09:28→23:30)
[2020-09-23] MEDS: LACTOBACILLUS RHAMNOSUS GG 1 CAPSULE. PO SCH ×2 (09:28→21:00)
[2020-09-23] MEDS: ASCORBIC ACID 1,000 MG TABLET PO SCH ×3 (09:32→21:00)
--- NOTE | 2020-09-23 09:40 | PDOC ---
PULMONARY PROGRESS NOTES DATE: 09/23/20 TIME: 09:39 Subjective Denies any increased shortness of breath. Patient desaturates easily with any activity. Patient has long recovery time. Remains on high flow cannula. In addition he is also on a nonrebreather mask. Vitals Vital Signs Date Time Temp Pulse Resp B/P (MAP) Pulse Ox O2 Delivery O2 Flow Rate FiO2 09/23/20 07:00 98.1 58 20 131/66 (87) 88 Nasal Cannula 98.1 09/23/20 04:01 15.0 Comments Visual exam done due to COVID-19. No paradoxical breathing. No skin rash, no leg edema General: Alert Labs Laboratory Tests Test 09/21/20 11:44 09/21/20 17:30 09/21/20 20:31 09/22/20 08:05 Glucose (Fingerstick) 338 mg/dL (70-99) 335 mg/dL (70-99) 319 mg/dL (70-99) 245 mg/dL (70-99) Test 09/22/20 09:10 09/22/20 13:01 09/22/20 16:57 09/22/20 20:18 White Blood Count 6.4 x10^3/uL (4.0-11.0) Red Blood Count 5.07 x10^6/uL (4.30-5.70) Hemoglobin 15.1 g/dL (13.0-17.5) Hematocrit 43.7 % (39.0-53.0) Mean Corpuscular Volume 86 fL (79-100) Mean Corpuscular Hemoglobin 30 pg (25-35) Mean Corpuscular Hemoglobin Concent 35 g/dL (31-37) Red Cell Distribution Width 13.7 % (11.5-14.5) Platelet Count 142 x10^3/uL (140-400) Neutrophils (%) (Auto) 85 % (31-73) Lymphocytes (%) (Auto) 7 % (24-48) Monocytes (%) (Auto) 9 % (0-9) Eosinophils (%) (Auto) 0 % (0-3) Basophils (%) (Auto) 0 % (0-3) Neutrophils # (Auto) 5.4 x10^3/uL (1.8-7.7) Lymphocytes # (Auto) 0.4 x10^3/uL (1.0-4.8) Monocytes # (Auto) 0.5 x10^3/uL (0.0-1.1) Eosinophils # (Auto) 0.0 x10^3/uL (0.0-0.7) Basophils # (Auto) 0.0 x10^3/uL (0.0-0.2) Sodium Level 143 mmol/L (136-145) Potassium Level 3.4 mmol/L (3.5-5.1) Chloride Level 107 mmol/L (98-107) Carbon Dioxide Level 21 mmol/L (21-32) Anion Gap 15 (6-14) Blood Urea Nitrogen 19 mg/dL (8-26) Creatinine 1.1 mg/dL (0.7-1.3) Estimated GFR (Cockcroft-Gault) 67.6 Glucose Level 275 mg/dL (70-99) Calcium Level 8.4 mg/dL (8.5-10.1) Magnesium Level 2.1 mg/dL (1.8-2.4) Glucose (Fingerstick) 251 mg/dL (70-99) 237 mg/dL (70-99) 243 mg/dL (70-99) Test 09/23/20 07:18 Glucose (Fingerstick) 108 mg/dL (70-99) Laboratory Tests Test 09/22/20 13:01 09/22/20 16:57 09/22/20 20:18 09/23/20 07:18 Glucose (Fingerstick) 251 mg/dL (70-99) 237 mg/dL (70-99) 243 mg/dL (70-99) 108 mg/dL (70-99) Medications Active Scripts Medications Dose Route/Sig Max Daily Dose Days Date Category Icosapent Ethyl 1 Gm Capsule 2 Cap PO BID 09/20/20 Reported Metformin Hcl 1,000 Mg Tablet 1 Tab PO BID 09/20/20 Reported Rybelsus (Semaglutide) 7 Mg Tablet 1 Tab PO DAILY 09/20/20 Reported Farxiga (Dapagliflozin Propanediol) 10 Mg Tablet 1 Tab PO DAILY 09/20/20 Reported Trelegy Ellipta 100-62.5-25 (Fluticasone/Umeclidin/Vilanter) 1 Each Blst.w.dev 1 Puff INH DAILY 8/12/21 Reported Benzonatate 200 Mg Capsule 1 Cap PO TID PRN 09/20/20 Reported Montelukast Sodium 10 Mg Tablet 1 Tab PO DAILY 09/20/20 Reported Loratadine 10 Mg Tablet 1 Tab PO DAILY 09/20/20 Reported Fluticasone Propionate Nasal [place] (Fluticasone Propionate) 16 Gm [place].susp 1 Sprays NS BID 09/20/20 Reported Simvastatin 20 Mg Tablet 1 Tab PO QHS 11/20/15 Reported Impression . 1. Acute hypoxic respiratory failure secondary to COVID-19 viral pneumonia/acute lung injury. 2. Abnormal chest x-ray consistent with mild infiltrates favoring COVID-19 viral pneumonia. 3. Leukopenia and thrombocytopenia due to COVID-19 viral pneumonia. 4. No significant tobacco history. Plan . 1. Continue present oxygen at high flow cannula 15 L, in addition 100% nonrebreather mask. If hypoxia worsens, will require Vapotherm. 2. Finished a course of remdesivir. 3. Continue dexamethasone. 4. We will continue empiric antibiotic. 5. The patient's platelet counts are low. We will closely monitor while on Lovenox. 6. Discussed with RN. ERIC GOTTLIEB MD Sep 23, 2020 09:40
[2020-09-23] MEDS: INSULIN GLARGINE SYRINGE. SQ SCH ×2 (09:47→23:38)
--- NOTE | 2020-09-23 11:03 | PDOC ---
[employer] PROGRESS NOTE Date of Service DOS: DATE: 09/23/20 TIME: 11:00 Chief Complaint Chief Complaint Acute COVID-19 pneumonia Acute hypoxic respiratory failure History of diabetes mellitus type 2 History of hypertension History of dyslipidemia Admit to medicine for further management Pulmonology consult Continue IV thiamine and vitamin C IV 4 mg dexamethasone Daily Pending ferritin, LDH, CRP, D-dimer labs Titrate O2 supplementation to maintain O2 saturation greater than 92% Lovenox for DVT prophylaxis Protonix GI prophylaxis ADA diet Full code Discussed with RN and SW Disposition patient management as above Surrogate decision maker is the Jenni Morrissey History of Present Illness History of Present Illness 65-year-old white male presenting today due to worsening cough and shortness of breath; patient also experiencing vomiting and diarrhea. Patient was recently diagnosed with COVID-19 on September 11 and has been doing well since that until a few days ago when his symptoms acutely worsened this morning. Has not received Covid vaccine. Close contacts at home have very similar symptoms. History notable for hypertension, type 2 diabetes, hyperlipidemia, GERD. 09/21/2020 No acute events overnight. Patient saturating 98% on 10 L nasal cannula. If patient requires increasing O2 requirements may consider pulmonology consult for further management. Continue Covid treatment protocol. Currently on Remdesi vir. Patient's chart, labs, images were reviewed and discussed with RN 09/22/2020 No acute events overnight. Patient saturating 91% on 10 L nasal cannula. Patient sitting over the side of bed and doing well and saying that he does have some shortness of breath with ambulation. Combivent inhaler ordered today. Patient's chart, labs, images were reviewed and discussed with RN 09/23/2020 No acute events overnight. Patient is requiring increasing O2 requirements. Saturating 88% on 15 L nonrebreather and also nasal cannula. Patient may require BiPAP. Discussed with pulmonary for possible ICU transfer. Patient's chart, labs, images were reviewed and discussed with RN Vitals/I&O Vitals/I&O: Vital Signs Date Time Temp Pulse Resp B/P (MAP) Pulse Ox O2 Delivery O2 Flow Rate FiO2 09/23/20 07:00 98.1 58 20 131/66 (87) 88 Nasal Cannula 98.1 09/23/20 04:01 15.0 I & O 09/22/20 09/22/20 09/23/20 15:00 23:00 07:00 Intake Total 440 ml 280 ml 100 ml Output Total 400 ml Balance 440 ml 280 ml -300 ml Physical Exam General: Alert, Oriented X3, Cooperative Heart: Regular rate Lungs: Crackles Abdomen: Normal bowel sounds Extremities: No clubbing Skin: No rashes, No significant lesion Labs Labs: Laboratory Tests Test 09/22/20 13:01 09/22/20 16:57 09/22/20 20:18 09/23/20 07:18 Glucose (Fingerstick) 251 mg/dL (70-99) 237 mg/dL (70-99) 243 mg/dL (70-99) 108 mg/dL (70-99) Assessment and Plan Assessmemt and Plan Problems Medical Problems: (1) Bilateral pulmonary infiltrates on CXR Status: Acute (2) Fever Status: Acute (3) Hypoxia Status: Acute (4) Lab test positive for detection of COVID-19 virus Status: Acute Comment Review of Relevant I have reviewed the following items lukasz (where applicable) has been applied. Medications: Current Medications Medications (Trade) Dose Ordered Sig/Khadar Route PRN Reason Start Time Stop Time Status Last Admin Dose Admin Insulin Human Lispro (HumaLOG) 5 units TIDWMEALS SQ 09/22/20 12:00 09/22/20 17:10 Albuterol/ Ipratropium (Combivent Respimat 20-100 Mcg) 1 puff PRN QID PRN INH SHORTNESS OF BREATH 09/22/20 12:45 09/23/20 09:28 Justifications for Admission Other Justification ARTHUR MCLEOD MD Sep 23, 2020 11:03
--- NOTE | 2020-09-23 11:15 | NUR ---
Dr Contreras and Dr Guillory have rounded. Pt desats to 82% on nasal canula when mask removed for meds. Patient is very slow to recover. Decision made and order given to move pt to CVC and start Vapotherm. Discussed with pt and with his .
--- NOTE | 2020-09-23 11:30 | NUR ---
Pt will be transferred to room 658. Report was called to Key KEARNS. and pt notified.
--- NOTE | 2020-09-23 12:30 | NUR ---
Pt transferred to 658 per bed. Tolerated transfer without difficulty.
[2020-09-23] MEDS ORDERED: STERILE WATER for RESP 1,000 ML BAG. INH PRN (12:45)
--- NOTE | 2020-09-23 13:00 | NUR ---
Pt transferred to room 658 per bed. Pt connected to heart monitor and placed on vapotherm. 18fr lemus inserted without difficulty. Will continue to monitor closely.
[2020-09-23] MEDS ORDERED: ATROPINE 0.5 MG/5 ML DISP.SYRINGE. IV PRN (18:00)
[2020-09-23] MEDS ORDERED: IV NORMAL SALINE 500ML BAG 500 ML IV PRN (18:00)
--- NOTE | 2020-09-23 18:00 | NUR ---
Pt c/o feeling claustrophobic, pulling vapotherm off. O2 Sats immediately drop to 70's. Notified Dr. Contreras of patient status. Order to transfer pt to ICU and start on precedex qtt. Room not available until after 7pm. Precedex qtt started at .2 mcg/kg/min. This nurse will stay with pt until ICU room ready.
[2020-09-23] MEDS: DEXMEDETOMIDINE 400 MCG in IV NORMAL SALINE 100ML 96 ML IV PRN (18:24)
[2020-09-23] MEDS: REMDESIVIR 100mg in NORMAL SALINE 250ML X 4 DAYS IV SCH (21:00)
[2020-09-23] MEDS: METOPROLOL SUCC 24HR ER 25 MG TAB.ER.24H. PO SCH (21:00)
[2020-09-23] MEDS: SIMVASTATIN 20 MG TABLET PO SCH (21:00)
[2020-09-23] MEDS ORDERED: SUCCINYLCHOLINE 200 MG/10 ML VIAL. ONE (21:40)
--- NOTE | 2020-09-23 22:00 | NUR ---
Patient transferred to room 103 via bed accompanied by RNx2. Patient was alert an oriented x4, short of breath at rest, RR28 with O2 @15L/NC and 15L/NRB and oxygen saturation 87%; patient does deny epain. Discussed with patient plant to immediately intubate after administration of medication to help patient relax (Propofol) and medication to paralyze (Anectine), explained patient would be medicated with pain med in addition to relaxing med for comfort while intubated. Patient verbalizes understanding and is agreeable. After administration of 200MG of Anectine and 200MG of Propofol IVP, patient was intubated by POULTRY VETERINARIAN with 7.0 ETT taped 22 at the teeth; patient tolerated intubation well. Propofol gtt started and titrated up to 20MCG/KG/MIN and Fentanyl continuous BRICK PAVING CHECKER started at 50MCG/HR for RASS of -4. #18 OG inserted without difficulty, placement verified via air bolus and return of clear gastric contents. Portable chest Xray/KUB ordered for verification of ETT and OG tube. See full assessment.
--- NOTE | 2020-09-23 22:07 | PDOC ---
Date and Time Pt has low O2 sats( 70's) and called for intubation. O2/mask, Diprivan 200mg & Anectine 200mg IVP. 7.5 OETT/glide scope X 1, positive ETCO2, BBS, taped 23cm at lip. O2 sat increasing to upper 80's. chest xray pending Current Medications Current Medications Sodium Chloride 1,000 ml @ 1,000 mls/hr 1X ONCE IV Last administered on 09/20/20at 14:45; Start 09/20/20 at 14:30; Stop 09/20/20 at 15:29; Status DC Dexamethasone Sodium Phosphate (Decadron) 10 mg 1X ONCE IV Last administered on 09/20/20at 14:50; Start 09/20/20 at 14:30; Stop 09/20/20 at 14:31; Status DC Piperacillin Sod/ Tazobactam Sod 3.375 gm/Sodium Chloride 50 ml @ 100 mls/hr 1X ONCE IV Last administered on 09/20/20at 15:22; Start 09/20/20 at 15:30; Stop 09/20/20 at 15:59; Status DC Acetaminophen (Tylenol) 1,000 mg 1X ONCE PO Last administered on 09/20/20at 15:22; Start 09/20/20 at 15:30; Stop 09/20/20 at 15:31; Status DC Ondansetron HCl (Zofran) 4 mg PRN Q8HRS PRN IVP NAUSEA/VOMITING; Start 09/20/20 at 15:45; Stop 09/20/20 at 17:11; Status DC Morphine Sulfate (Morphine Sulfate) 2 mg PRN Q2HR PRN IVP PAIN; Start 09/20/20 at 15:45; Stop 09/21/20 at 15:44; Status DC Acetaminophen (Tylenol) 650 mg PRN Q4HRS PRN PO FEVER > 100.3'F; Start 09/20/20 at 15:45; Stop 09/21/20 at 15:44; Status Cancel Insulin Human Lispro (HumaLOG) 0-5 UNITS TIDWMEALS SQ Last administered on 09/21/20at 12:34; Start 09/20/20 at 17:00; Stop 09/21/20 at 13:33; Status DC Dextrose (Dextrose 50%-Water Syringe) 12.5 gm PRN Q15MIN PRN IV SEE COMMENTS; Start 09/20/20 at 15:45 Ondansetron HCl (Zofran) 4 mg PRN Q6HRS PRN IVP NAUSEA/VOMITING; Start 09/20/20 at 17:00 Calcium Carbonate/ Glycine (Tums) 500 mg PRN Q3HRS PRN PO UPSET STOMACH Last administered on 09/23/20at 11:47; Start 09/20/20 at 17:00 Zolpidem Tartrate (Ambien) 5 mg PRN QHS PRN PO INSOMNIA, MAY REPEAT IN 1HR; Start 09/20/20 at 17:00 Info (Non-Icu Electrolyte Protocol) 1 ea PRN DAILY PRN MC SEE COMMENTS; Start 09/20/20 at 17:00 Oxycodone/ Acetaminophen (Percocet 5/325) 1 tab PRN Q4HRS PRN PO MILD PAIN, 1ST CHOICE; Start 09/20/20 at 17:00 Oxycodone/ Acetaminophen (Percocet 5/325) 2 tab PRN Q4HRS PRN PO MODERATE PAIN, SEVERE PAIN; Start 09/20/20 at 17:00 Acetaminophen (Tylenol) 650 mg PRN Q6HRS PRN PO Headaches, Temp > 101.5F; Start 09/20/20 at 17:00 Senna/Docusate Sodium (Senna Plus) 1 tab BID PO Last administered on 09/23/20at 09:27; Start 09/20/20 at 21:00 Enoxaparin Sodium (Lovenox 40mg Syringe) 40 mg Q12HR SQ Last administered on 09/23/20at 09:28; Start 09/20/20 at 17:00 Potassium Chloride (Klor-Con) 40 meq 1X ONCE PO Last administered on 09/20/20at 17:34; Start 09/20/20 at 17:00; Stop 09/20/20 at 17:06; Status DC Piperacillin Sod/ Tazobactam Sod (Zosyn Per Pharmacy) 1 each PRN DAILY PRN MC SEE COMMENTS; Start 09/20/20 at 17:00 Azithromycin (Zithromax) 500 mg 1X ONCE PO Last administered on 09/20/20at 17 :34; Start 09/20/20 at 17:00; Stop 09/20/20 at 17:07; Status DC Dexamethasone Sodium Phosphate (Decadron) 6 mg DAILY IVP Last administered on 09/23/20 09:28; Start 09/21/20 at 09:00 Guaifenesin/ Codeine Phosphate (Robitussin Ac) 5 ml PRN Q6HRS PRN PO COUGH Last administered on 09/23/20 11:49; Start 09/20/20 at 17:00 Multivitamins (Thera M Plus) 1 tab DAILY PO Last administered on 09/23/20 09:27; Start 09/21/20 at 09:00 Aspirin (Aspirin Chewable) 81 mg DAILYWBKFT PO Last administered on 09/23/20 09:27; Start 09/21/20 at 08:00 Metoprolol Succinate (Toprol Xl) 12.5 mg HS PO Last administered on 09/22/20 20:28; Start 09/20/20 at 21:00 Pantoprazole Sodium (Protonix) 40 mg DAILYAC PO Last administered on 09/23/20 09:28; Start 09/21/20 at 07:30 Simvastatin (Zocor) 20 mg QHS PO Last administered on 09/22/20 20:28; Start 09/20/20 at 21:00 Piperacillin Sod/ Tazobactam Sod 3.375 gm/Sodium Chloride 50 ml @ 100 mls/hr Q6HRS IV Last administered on 09/23/20 16:54; Start 09/20/20 at 18:00 Remdesivir 200 mg/ Sodium Chloride 210 ml @ 210 mls/hr 1X ONCE IV Last administered on 09/20/20 21:12; Start 09/20/20 at 20:00; Stop 09/20/20 at 20:59; Status DC Remdesivir 100 mg/ Sodium Chloride 230 ml @ 460 mls/hr Q24H IV Last administered on 09/23/20 21:00; Start 09/21/20 at 20:00; Stop 09/24/20 at 20:29 Insulin Glargine (Lantus Syringe) 20 unit BID SQ Last administered on 09/23/20 09:47; Start 09/21/20 at 21:00 Insulin Human Lispro (HumaLOG) 0-9 UNITS TIDWMEALS SQ Last administered on 09/23/20 17:28; Start 09/21/20 at 17:00 Lactobacillus Rhamnosus (Culturelle) 1 cap BID PO Last administered on 09/23/20at 09:28; Start 09/21/20 at 21:00 Ascorbic Acid (Vitamin C) 1,000 mg TID PO Last administered on 09/23/20at 14:11; Start 09/21/20 at 21:00 Zinc Sulfate (Orazinc) 220 mg DAILY PO Last administered on 09/23/20at 09:27; Start 09/22/20 at 09:00 Insulin Human Lispro (HumaLOG) 5 units TIDWMEALS SQ Last administered on 09/23/20at 17:29; Start 09/22/20 at 12:00 Albuterol/ Ipratropium (Combivent Respimat 20-100 Mcg) 1 puff PRN QID PRN INH SHORTNESS OF BREATH Last administered on 09/23/20at 09:28; Start 09/22/20 at 12:45 Sterile Water (WATER for RESP) 1,000 ml CONT PRN INH VIA VAPOTHERM DEVICE Last administered on 09/23/20at 14:55; Start 09/23/20 at 12:45 Dexmedetomidine HCl 400 mcg/ Sodium Chloride 100 ml @ 0 mls/hr CONT PRN IV PER PROTOCOL Last administered on 09/23/20at 18:24; Start 09/23/20 at 18:00 Sodium Chloride 500 ml @ 500 mls/hr 1X PRN PRN IV SEE COMMENTS; Start 09/23/20 at 18:00 Atropine Sulfate (ATROPINE 0.5mg SYRINGE) 0.5 mg PRN Q5MIN PRN IV SEE COMMENTS; Start 09/23/20 at 18:00 Lorazepam (Ativan Inj) 0.25 mg 1X ONCE IVP Last administered on 09/23/20at 20:23; Start 09/23/20 at 20:15; Stop 09/23/20 at 20:16; Status DC Fentanyl Citrate 30 ml @ 0 mls/hr CONT PRN IV SEE PROTOCOL; Start 09/23/20 at 21:15 Propofol 100 ml @ 0 mls/hr CONT PRN IV PER PROTOCOL; Start 09/23/20 at 21:15 Midazolam HCl 100 ml @ 0 mls/hr CONT PRN IV SEE PROTOCOL; Start 09/23/20 at 21:15 Succinylcholine Chloride (Anectine) 200 mg STK-MED ONCE .ROUTE ; Start 09/23/20 at 21:40; Stop 09/23/20 at 21:40; Status DC Active Scripts Active Reported Icosapent Ethyl 1 Gm Capsule 2 Cap PO BID Metformin Hcl 1,000 Mg Tablet 1 Tab PO BID Rybelsus (Semaglutide) 7 Mg Tablet 1 Tab PO DAILY Farxiga (Dapagliflozin Propanediol) 10 Mg Tablet 1 Tab PO DAILY Trelegy Ellipta 100-62.5-25 (Fluticasone/Umeclidin/Vilanter) 1 Each Blst.w.dev 1 Puff INH DAILY Benzonatate 200 Mg Capsule 1 Cap PO TID PRN Montelukast Sodium 10 Mg Tablet 1 Tab PO DAILY Loratadine 10 Mg Tablet 1 Tab PO DAILY Fluticasone Propionate Nasal Dixon (Fluticasone Propionate) 16 Gm Dixon.susp 1 Sprays NS BID Simvastatin 20 Mg Tablet 1 Tab PO QHS Pertinent Labs/Test Laboratory Tests Test 09/22/20 08:05 09/22/20 09:10 09/22/20 13:01 09/22/20 16:57 Glucose (Fingerstick) 245 mg/dL (70-99) 251 mg/dL (70-99) 237 mg/dL (70-99) White Blood Count 6.4 x10^3/uL (4.0-11.0) Red Blood Count 5.07 x10^6/uL (4.30-5.70) Hemoglobin 15.1 g/dL (13.0-17.5) Hematocrit 43.7 % (39.0-53.0) Mean Corpuscular Volume 86 fL (79-100) Mean Corpuscular Hemoglobin 30 pg (25-35) Mean Corpuscular Hemoglobin Concent 35 g/dL (31-37) Red Cell Distribution Width 13.7 % (11.5-14.5) Platelet Count 142 x10^3/uL (140-400) Neutrophils (%) (Auto) 85 % (31-73) Lymphocytes (%) (Auto) 7 % (24-48) Monocytes (%) (Auto) 9 % (0-9) Eosinophils (%) (Auto) 0 % (0-3) Basophils (%) (Auto) 0 % (0-3) Neutrophils # (Auto) 5.4 x10^3/uL (1.8-7.7) Lymphocytes # (Auto) 0.4 x10^3/uL (1.0-4.8) Monocytes # (Auto) 0.5 x10^3/uL (0.0-1.1) Eosinophils # (Auto) 0.0 x10^3/uL (0.0-0.7) Basophils # (Auto) 0.0 x10^3/uL (0.0-0.2) Sodium Level 143 mmol/L (136-145) Potassium Level 3.4 mmol/L (3.5-5.1) Chloride Level 107 mmol/L (98-107) Carbon Dioxide Level 21 mmol/L (21-32) Anion Gap 15 (6-14) Blood Urea Nitrogen 19 mg/dL (8-26) Creatinine 1.1 mg/dL (0.7-1.3) Estimated GFR (Cockcroft-Gault) 67.6 Glucose Level 275 mg/dL (70-99) Calcium Level 8.4 mg/dL (8.5-10.1) Magnesium Level 2.1 mg/dL (1.8-2.4) Test 09/22/20 20:18 09/23/20 07:18 09/23/20 11:31 09/23/20 17:22 Glucose (Fingerstick) 243 mg/dL (70-99) 108 mg/dL (70-99) 135 mg/dL (70-99) 210 mg/dL (70-99) Laboratory Tests Test 09/23/20 07:18 09/23/20 11:31 09/23/20 17:22 Glucose (Fingerstick) 108 mg/dL (70-99) 135 mg/dL (70-99) 210 mg/dL (70-99) LAST VITALS Vital Signs Date Time Temp Pulse Resp B/P (MAP) Pulse Ox O2 Delivery O2 Flow Rate FiO2 09/23/20 21:45 87 Ventilator 09/23/20 20:58 40.0 09/23/20 20:50 45 29 172/77 (108) 09/23/20 19:32 97.8 97.8 BRYANT WARD DIET CONSULTANT Sep 23, 2020 22:07
--- NOTE | 2020-09-23 22:18 | RAD ---
Exam: Chest one view INDICATION: Intubation TECHNIQUE: Frontal view of the chest Comparisons: 09/20/2020 FINDINGS: Sternotomy wires are noted. Endotracheal tube with tip approximately 4 cm above the romie. Enteric t ube traverses below the diaphragm distal extent not visualized. The cardiomediastinal silhouette and pulmonary vessels are within normal limits. Extensive bilateral airspace disease. No pleural effusion. IMPRESSION: 1. Lines and tubes described above. 2. Interval development of extensive bilateral airspace disease Electronically signed by: Obie Powell MD (09/23/2020 10:15 PM) RAUL
[2020-09-23] MEDS: PROPOFOL 100 ML IV PRN ×2 (22:32→23:39)
[2020-09-24] VITALS (23 sets, daily range): BP systolic 101–131; BP diastolic 53–73
[2020-09-24] MEDS: PIPERACILLIN/TAZOBACTAM 3.375 GM in IV NORMAL SALINE 50ML 50 ML IV SCH ×5 (00:26→23:41)
[2020-09-24] MEDS ORDERED: SUCCINYLCHOLINE 200 MG/10 ML VIAL. IV ONE (03:00)
[2020-09-24] MEDS: PROPOFOL 100 ML IV PRN ×5 (05:11→23:08)
[2020-09-24] MEDS: INSULIN LISPRO 300 UNITS/3 ML VIAL. SQ SCH ×5 (06:03→23:52)
--- NOTE | 2020-09-24 07:02 | PDOC ---
[employer] PROGRESS NOTE Date of Service DOS: DATE: 09/24/20 TIME: 06:59 Chief Complaint Chief Complaint Acute COVID-19 pneumonia Acute hypoxic respiratory failure History of diabetes mellitus type 2 History of hypertension History of dyslipidemia Admit to medicine for further management Pulmonology consult Continue IV thiamine and vitamin C IV 4 mg dexamethasone Daily Pending ferritin, LDH, CRP, D-dimer labs Titrate O2 supplementation to maintain O2 saturation greater than 92% Lovenox for DVT prophylaxis Protonix GI prophylaxis ADA diet Full code Discussed with RN and SW Disposition patient management as above Surrogate decision maker is the Jenni Morrissey History of Present Illness History of Present Illness 65-year-old white male presenting today due to worsening cough and shortness of breath; patient also experiencing vomiting and diarrhea. Patient was recently diagnosed with COVID-19 on September 11 and has been doing well since that until a few days ago when his symptoms acutely worsened this morning. Has not received Covid vaccine. Close contacts at home have very similar symptoms. History notable for hypertension, type 2 diabetes, hyperlipidemia, GERD. 09/21/2020 No acute events overnight. Patient saturating 98% on 10 L nasal cannula. If patient requires increasing O2 requirements may consider pulmonology consult for further management. Continue Covid treatment protocol. Currently on Remdesi vir. Patient's chart, labs, images were reviewed and discussed with RN 09/22/2020 No acute events overnight. Patient saturating 91% on 10 L nasal cannula. Patient sitting over the side of bed and doing well and saying that he does have some shortness of breath with ambulation. Combivent inhaler ordered today. Patient's chart, labs, images were reviewed and discussed with RN 09/23/2020 No acute events overnight. Patient is requiring increasing O2 requirements. Saturating 88% on 15 L nonrebreather and also nasal cannula. Patient may require BiPAP. Discussed with pulmonary for possible ICU transfer. Patient's chart, labs, images were reviewed and discussed with RN 09/24/2020: Patient transferred to the ICU yesterday and intubated. Afebrile, currently breathing FiO2 100%, PEEP 10. Final dose of remdesivir today. Chest x- ray yesterday showed interval development of extensive bilateral airspace disease. We will continue treatment with steroids and IV antibiotics. Critical care time 30 minutes spent reviewing charts, reviewing labs, reviewing imaging, discussion with RN. Vitals/I&O Vitals/I&O: Vital Signs Date Time Temp Pulse Resp B/P (MAP) Pulse Ox O2 Delivery O2 Flow Rate FiO2 09/24/20 06:01 96 Ventilator 09/24/20 05:00 42 22 108/59 (75) 09/24/20 04:00 97.9 97.9 09/23/20 20:58 40.0 I & O 09/23/20 09/23/20 09/24/20 15:00 23:00 07:00 Intake Total 292 ml 510 ml 113 ml Output Total 750 ml 220 ml Balance 292 ml -240 ml -107 ml Physical Exam General: mild distress, Other (Intubated and sedated) Heart: Regular rate Lungs: Crackles, Other (Intubated) Abdomen: Normal bowel sounds Extremities: No clubbing Skin: No rashes, No significant lesion Labs Labs: Laboratory Tests Test 09/23/20 07:18 09/23/20 11:31 09/23/20 17:22 09/23/20 23:36 Glucose (Fingerstick) 108 mg/dL (70-99) 135 mg/dL (70-99) 210 mg/dL (70-99) 189 mg/dL (70-99) Test 09/24/20 06:02 Glucose (Fingerstick) 151 mg/dL (70-99) Assessment and Plan Assessmemt and Plan Problems Medical Problems: (1) Bilateral pulmonary infiltrates on CXR Status: Acute (2) Fever Status: Acute (3) Hypoxia Status: Acute (4) Lab test positive for detection of COVID-19 virus Status: Acute Comment Review of Relevant I have reviewed the following items lukasz (where applicable) has been applied. Medications: Current Medications Medications (Trade) Dose Ordered Sig/Khadar Route PRN Reason Start Time Stop Time Status Last Admin Dose Admin Sterile Water (WATER for RESP) 1,000 ml CONT PRN INH VIA VAPOTHERM DEVICE 09/23/20 12:45 09/23/20 14:55 Dexmedetomidine HCl 400 mcg/ Sodium Chloride 100 ml @ 0 mls/hr CONT PRN IV PER PROTOCOL 09/23/20 18:00 09/23/20 18:24 Lorazepam (Ativan Inj) 0.25 mg 1X ONCE IVP 09/23/20 20:15 09/23/20 20:16 DC 09/23/20 20:23 Fentanyl Citrate 30 ml @ 0 mls/hr CONT PRN IV SEE PROTOCOL 09/23/20 21:15 09/23/20 22:28 Propofol 100 ml @ 0 mls/hr CONT PRN IV PER PROTOCOL 09/23/20 21:15 09/24/20 05:11 Succinylcholine Chloride (Anectine) 200 mg 1X ONCE IV 09/24/20 03:00 09/24/20 03:01 DC 09/23/20 21:44 Justifications for Admission Other Justification FATOU LAMB MD Sep 24, 2020 07:02
--- NOTE | 2020-09-24 07:46 | PDOC ---
PULMONARY PROGRESS NOTES DATE: 09/24/20 TIME: 07:41 Subjective intubated 09/23/20 no overnight concerns from nursing afebrile remains on vent support 100%/PEEP 10 Vitals Vital Signs Date Time Temp Pulse Resp B/P (MAP) Pulse Ox O2 Delivery O2 Flow Rate FiO2 09/24/20 06:01 96 Ventilator 09/24/20 06:00 45 22 118/68 (85) 09/24/20 04:00 97.9 97.9 09/23/20 20:58 40.0 Comments Visual exam done due to COVID-19. intubated No paradoxical breathing. No skin rash, no leg edema Lungs: Crackles, Other (Intubated) Labs Laboratory Tests Test 09/22/20 08:05 09/22/20 09:10 09/22/20 13:01 09/22/20 16:57 Glucose (Fingerstick) 245 mg/dL (70-99) 251 mg/dL (70-99) 237 mg/dL (70-99) White Blood Count 6.4 x10^3/uL (4.0-11.0) Red Blood Count 5.07 x10^6/uL (4.30-5.70) Hemoglobin 15.1 g/dL (13.0-17.5) Hematocrit 43.7 % (39.0-53.0) Mean Corpuscular Volume 86 fL (79-100) Mean Corpuscular Hemoglobin 30 pg (25-35) Mean Corpuscular Hemoglobin Concent 35 g/dL (31-37) Red Cell Distribution Width 13.7 % (11.5-14.5) Platelet Count 142 x10^3/uL (140-400) Neutrophils (%) (Auto) 85 % (31-73) Lymphocytes (%) (Auto) 7 % (24-48) Monocytes (%) (Auto) 9 % (0-9) Eosinophils (%) (Auto) 0 % (0-3) Basophils (%) (Auto) 0 % (0-3) Neutrophils # (Auto) 5.4 x10^3/uL (1.8-7.7) Lymphocytes # (Auto) 0.4 x10^3/uL (1.0-4.8) Monocytes # (Auto) 0.5 x10^3/uL (0.0-1.1) Eosinophils # (Auto) 0.0 x10^3/uL (0.0-0.7) Basophils # (Auto) 0.0 x10^3/uL (0.0-0.2) Sodium Level 143 mmol/L (136-145) Potassium Level 3.4 mmol/L (3.5-5.1) Chloride Level 107 mmol/L (98-107) Carbon Dioxide Level 21 mmol/L (21-32) Anion Gap 15 (6-14) Blood Urea Nitrogen 19 mg/dL (8-26) Creatinine 1.1 mg/dL (0.7-1.3) Estimated GFR (Cockcroft-Gault) 67.6 Glucose Level 275 mg/dL (70-99) Calcium Level 8.4 mg/dL (8.5-10.1) Magnesium Level 2.1 mg/dL (1.8-2.4) Test 09/22/20 20:18 09/23/20 07:18 09/23/20 11:31 09/23/20 17:22 Glucose (Fingerstick) 243 mg/dL (70-99) 108 mg/dL (70-99) 135 mg/dL (70-99) 210 mg/dL (70-99) Test 09/23/20 23:36 09/24/20 06:02 Glucose (Fingerstick) 189 mg/dL (70-99) 151 mg/dL (70-99) Laboratory Tests Test 09/23/20 11:31 09/23/20 17:22 09/23/20 23:36 09/24/20 06:02 Glucose (Fingerstick) 135 mg/dL (70-99) 210 mg/dL (70-99) 189 mg/dL (70-99) 151 mg/dL (70-99) Medications Active Scripts Medications Dose Route/Sig Max Daily Dose Days Date Category Icosapent Ethyl 1 Gm Capsule 2 Cap PO BID 09/20/20 Reported Metformin Hcl 1,000 Mg Tablet 1 Tab PO BID 09/20/20 Reported Rybelsus (Semaglutide) 7 Mg Tablet 1 Tab PO DAILY 09/20/20 Reported Farxiga (Dapagliflozin Propanediol) 10 Mg Tablet 1 Tab PO DAILY 09/20/20 Reported Trelegy Ellipta 100-62.5-25 (Fluticasone/Umeclidin/Vilanter) 1 Each Blst.w.dev 1 Puff INH DAILY 09/20/20 Reported Benzonatate 200 Mg Capsule 1 Cap PO TID PRN 09/20/20 Reported Montelukast Sodium 10 Mg Tablet 1 Tab PO DAILY 09/20/20 Reported Loratadine 10 Mg Tablet 1 Tab PO DAILY 09/20/20 Reported Fluticasone Propionate Nasal Depue (Fluticasone Propionate) 16 Gm Depue.susp 1 Sprays NS BID 09/20/20 Reported Simvastatin 20 Mg Tablet 1 Tab PO QHS 11/20/15 Reported Impression . 1. Acute hypoxic respiratory failure secondary to COVID-19 viral pneumonia/acute lung injury.---intubated 09/23/20 2. Abnormal chest x-ray consistent with mild infiltrates favoring COVID-19 viral pneumonia. 3. Leukopenia and thrombocytopenia due to COVID-19 viral pneumonia. 4. No significant tobacco history. Plan . Updated 09/24/20 Continue current vent support 22/500/100%/PEEP10 Follow CXR/ABG, changes as needed Continue course of remdesivir. Continue dexamethasone will need full 10 day course , started on 09/23/20 Continue empiric antibiotic on zoysn Consult weatherization technician for TF DVT/GI PPX:lovenox D/W RN and RT discussed with and son in detail Critical Care time 30 min ERIC GOTTLIEB MD Sep 24, 2020 07:46
[2020-09-24] MEDS: ASPIRIN CHEWABLE 81 MG TABLET. PO SCH (08:00)
[2020-09-24 08:15] LABS: BASE EXCESS ABG -3 mmol/L (-3-3); HCO3 ABG 20 mmol/L (21-28); PCO2 ABG 31 mmHg (35-46); PO2 ABG 156 mmHg (65-108); SAT O2 ABG 99 % (92-99)
[2020-09-24 08:17] LABS: FIO2 ABG 100
[2020-09-24] MEDS: SENNOSIDES/DOCUSATE 8.6/50MG TABLET. PO SCH ×2 (08:38→20:48)
[2020-09-24] MEDS: MULTIVITAMIN with MINERAL TABLET. PO SCH (10:03)
[2020-09-24] MEDS: ZINC SULFATE 220 MG CAPSULE. PO SCH (10:03)
[2020-09-24] MEDS: DEXAMETHASONE SOD PHOS 4 MG/ML VIAL IVP SCH (10:03)
[2020-09-24] MEDS: ASCORBIC ACID 1,000 MG TABLET PO SCH ×3 (10:03→20:47)
[2020-09-24] MEDS: ENOXAPARIN 40 MG/0.4 ML SYRINGE. SQ SCH ×2 (10:08→20:47)
[2020-09-24] MEDS: INSULIN GLARGINE SYRINGE. SQ SCH ×2 (10:17→20:49)
--- NOTE | 2020-09-24 11:44 | NUR ---
SS following up with discharge planning. SS reviewed pt chart and discussed with pt RN. Pt is currently on the vent at 90%. COVID19 positive. Pt on IV Remdesivir, IV Zosyn, and IV Decadron. Pt on Propofol and Fentanyl. Not stable. SS will continue to follow for discharge planning.
[2020-09-24] MEDS ORDERED: BENZOCAINE 20% TOPICAL AEROSOL SPRAY 57GM CAN. TP ONE (15:00)
[2020-09-24] MEDS: REMDESIVIR 100mg in NORMAL SALINE 250ML X 4 DAYS IV SCH (19:28)
[2020-09-24] MEDS: SIMVASTATIN 20 MG TABLET PO SCH (20:47)
[2020-09-24] MEDS: METOPROLOL SUCC 24HR ER 25 MG TAB.ER.24H. PO SCH (20:50)
[2020-09-25] VITALS (24 sets, daily range): BP systolic 94–131; BP diastolic 45–67
[2020-09-25] MEDS: PROPOFOL 100 ML IV PRN ×6 (02:46→23:58)
[2020-09-25] MEDS: INSULIN LISPRO 300 UNITS/3 ML VIAL. SQ SCH ×3 (05:25→17:30)
[2020-09-25] MEDS: PIPERACILLIN/TAZOBACTAM 3.375 GM in IV NORMAL SALINE 50ML 50 ML IV SCH ×4 (05:52→23:59)
[2020-09-25 06:13] LABS: BASO % 0 % (0-3); EOS % 0 % (0-3); HEMATOCRIT 42.6 % (39.0-53.0); HEMOGLOBIN 14.5 g/dL (13.0-17.5); LYMPH # 0.7 x10^3/uL (1.0-4.8); LYMPH % 9 % (24-48); MEAN CORPUSCULAR HEMOGLOBIN 30 pg (25-35); MEAN CORPUSCULAR HGB CONC 34 g/dL (31-37); MEAN CORPUSCULAR VOLUME 88 fL (79-100); MONO # 0.6 x10^3/uL (0.0-1.1); MONO % 8 % (0-9); NEUT # 6.4 x10^3/uL (1.8-7.7); NEUT % 83 % (31-73); PLATELET COUNT 190 x10^3/uL (140-400); RED BLOOD COUNT 4.84 x10^6/uL (4.30-5.70); WHITE BLOOD COUNT 7.7 x10^3/uL (4.0-11.0)
[2020-09-25 06:25] LABS: C-REACTIVE PROTEIN 80.6 mg/L (0-3.3); CALCIUM 8.1 mg/dL (8.5-10.1); GFR 75.5; POTASSIUM 3.4 mmol/L (3.5-5.1)
--- NOTE | 2020-09-25 07:50 | PDOC ---
[facility] [facility] PROGRESS NOTE Date of Service DOS: DATE: 09/25/20 TIME: 07:47 Chief Complaint Chief Complaint Acute COVID-19 pneumonia Acute hypoxic respiratory failure History of diabetes mellitus type 2 History of hypertension History of dyslipidemia Admit to medicine for further management Pulmonology consult Continue IV thiamine and vitamin C IV 4 mg dexamethasone Daily Pending ferritin, LDH, CRP, D-dimer labs Titrate O2 supplementation to maintain O2 saturation greater than 92% Lovenox for DVT prophylaxis Protonix GI prophylaxis ADA diet Full code Discussed with RN and SW Disposition patient management as above Surrogate decision maker is the Jenni Morrissey History of Present Illness History of Present Illness 65-year-old white male presenting today due to worsening cough and shortness of breath; patient also experiencing vomiting and diarrhea. Patient was recently diagnosed with COVID-19 on September 11 and has been doing well since that until a few days ago when his symptoms acutely worsened this morning. Has not received Covid vaccine. Close contacts at home have very similar symptoms. History notable for hypertension, type 2 diabetes, hyperlipidemia, GERD. 09/21/2020 No acute events overnight. Patient saturating 98% on 10 L nasal cannula. If patient requires increasing O2 requirements may consider pulmonology consult for further management. Continue Covid treatment protocol. Currently on Remdesi vir. Patient's chart, labs, images were reviewed and discussed with RN 09/22/2020 No acute events overnight. Patient saturating 91% on 10 L nasal cannula. Patient sitting over the side of bed and doing well and saying that he does have some shortness of breath with ambulation. Combivent inhaler ordered today. Patient's chart, labs, images were reviewed and discussed with RN 09/23/2020 No acute events overnight. Patient is requiring increasing O2 requirements. Saturating 88% on 15 L nonrebreather and also nasal cannula. Patient may require BiPAP. Discussed with pulmonary for possible ICU transfer. Patient's chart, labs, images were reviewed and discussed with RN 09/24/2020: Patient transferred to the ICU yesterday and intubated. Afebrile, currently breathing FiO2 100%, PEEP 10. Final dose of remdesivir today. Chest x- ray yesterday showed interval development of extensive bilateral airspace disease. We will continue treatment with steroids and IV antibiotics. Critical care time 30 minutes spent reviewing charts, reviewing labs, reviewing imaging, discussion with RN. 09/25/2020: Afebrile. On vent with FiO2 80%, PEEP 9. He has completed course of remdesivir. Continue IV steroids for total dose 10 days and IV Zosyn. Critical care time 30 minutes spent reviewing charts, reviewing labs, reviewing imaging, discussion with RN. Vitals/I&O Vitals/I&O: Vital Signs Date Time Temp Pulse Resp B/P (MAP) Pulse Ox O2 Delivery O2 Flow Rate FiO2 09/25/20 07:00 52 22 119/64 (82) 100 Ventilator 09/25/20 04:00 97.9 97.9 09/24/20 18:14 40.0 I & O 09/24/20 09/24/20 09/25/20 15:00 23:00 07:00 Intake Total 120 ml 630 ml 593 ml Output Total 300 ml 310 ml 830 ml Balance -180 ml 320 ml -237 ml Physical Exam General: mild distress, Other (Intubated and sedated) Heart: Regular rate Lungs: Crackles, Other (Intubated) Abdomen: Normal bowel sounds Extremities: No clubbing Skin: No rashes, No significant lesion Labs Labs: Laboratory Tests Test 09/24/20 08:00 09/24/20 10:38 09/24/20 11:39 09/24/20 17:43 O2 Saturation 99 % (92-99) Arterial Blood pH 7.44 (7.35-7.45) Arterial Blood pCO2 at Patient Temp 31 mmHg (35-46) Arterial Blood pO2 at Patient Temp 156 mmHg (65-108) Arterial Blood HCO3 20 mmol/L (21-28) Arterial Blood Base Excess -3 mmol/L (-3-3) FiO2 100 Glucose (Fingerstick) 136 mg/dL (70-99) 135 mg/dL (70-99) 195 mg/dL (70-99) Test 09/24/20 23:43 09/25/20 05:20 09/25/20 05:35 Glucose (Fingerstick) 178 mg/dL (70-99) 145 mg/dL (70-99) White Blood Count 7.7 x10^3/uL (4.0-11.0) Red Blood Count 4.84 x10^6/uL (4.30-5.70) Hemoglobin 14.5 g/dL (13.0-17.5) Hematocrit 42.6 % (39.0-53.0) Mean Corpuscular Volume 88 fL (79-100) Mean Corpuscular Hemoglobin 30 pg (25-35) Mean Corpuscular Hemoglobin Concent 34 g/dL (31-37) Red Cell Distribution Width 14.0 % (11.5-14.5) Platelet Count 190 x10^3/uL (140-400) Neutrophils (%) (Auto) 83 % (31-73) Lymphocytes (%) (Auto) 9 % (24-48) Monocytes (%) (Auto) 8 % (0-9) Eosinophils (%) (Auto) 0 % (0-3) Basophils (%) (Auto) 0 % (0-3) Neutrophils # (Auto) 6.4 x10^3/uL (1.8-7.7) Lymphocytes # (Auto) 0.7 x10^3/uL (1.0-4.8) Monocytes # (Auto) 0.6 x10^3/uL (0.0-1.1) Eosinophils # (Auto) 0.0 x10^3/uL (0.0-0.7) Basophils # (Auto) 0.0 x10^3/uL (0.0-0.2) Sodium Level 146 mmol/L (136-145) Potassium Level 3.4 mmol/L (3.5-5.1) Chloride Level 111 mmol/L (98-107) Carbon Dioxide Level 25 mmol/L (21-32) Anion Gap 10 (6-14) Blood Urea Nitrogen 21 mg/dL (8-26) Creatinine 1.0 mg/dL (0.7-1.3) Estimated GFR (Cockcroft-Gault) 75.5 Glucose Level 144 mg/dL (70-99) Calcium Level 8.1 mg/dL (8.5-10.1) C-Reactive Protein, Quantitative 80.6 mg/L (0-3.3) Assessment and Plan Assessmemt and Plan Problems Medical Problems: (1) Bilateral pulmonary infiltrates on CXR Status: Acute (2) Fever Status: Acute (3) Hypoxia Status: Acute (4) Lab test positive for detection of COVID-19 virus Status: Acute Comment Review of Relevant I have reviewed the following items lukasz (where applicable) has been applied. Justifications for Admission Other Justification FATOU LAMB MD Sep 25, 2020 07:50
[2020-09-25 08:02] LABS: BASE EXCESS ABG 0 mmol/L (-3-3); HCO3 ABG 25 mmol/L (21-28); PCO2 ABG 40 mmHg (35-46); PO2 ABG 86 mmHg (65-108); SAT O2 ABG 96 % (92-99)
[2020-09-25] MEDS: PANTOPRAZOLE IV PUSH 40 MG VIAL. IVP SCH (08:28)
[2020-09-25] MEDS: ENOXAPARIN 40 MG/0.4 ML SYRINGE. SQ SCH ×2 (08:28→21:05)
[2020-09-25] MEDS: SENNOSIDES/DOCUSATE 8.6/50MG TABLET. PO SCH ×2 (08:28→21:03)
[2020-09-25] MEDS: DEXAMETHASONE SOD PHOS 4 MG/ML VIAL IVP SCH (08:28)
[2020-09-25] MEDS: MULTIVITAMIN with MINERAL TABLET. PO SCH (08:28)
[2020-09-25] MEDS: ASCORBIC ACID 1,000 MG TABLET PO SCH ×3 (08:28→21:03)
[2020-09-25] MEDS: ZINC SULFATE 220 MG CAPSULE. PO SCH (08:28)
[2020-09-25] MEDS: ASPIRIN CHEWABLE 81 MG TABLET. PO SCH (08:28)
[2020-09-25] MEDS: INSULIN GLARGINE SYRINGE. SQ SCH ×2 (08:58→21:13)
[2020-09-25 09:22] LABS: FIO2 ABG 80/VENT
--- NOTE | 2020-09-25 09:53 | PDOC ---
PULMONARY PROGRESS NOTES DATE: 09/25/20 TIME: 09:51 Subjective intubated 09/23/20 no overnight concerns from nursing low grade fever overnight remains on vent support 80%/PEEP 8 Vitals Vital Signs Date Time Temp Pulse Resp B/P (MAP) Pulse Ox O2 Delivery O2 Flow Rate FiO2 09/25/20 09:00 54 22 118/56 (76) 100 Ventilator 09/25/20 08:57 40.0 09/25/20 08:00 99.6 99.6 Comments Visual exam done due to COVID-19. intubated No paradoxical breathing. No skin rash, no leg edema Lungs: Crackles, Other (Intubated) Labs Laboratory Tests Test 09/23/20 11:31 09/23/20 17:22 09/23/20 23:36 09/24/20 06:02 Glucose (Fingerstick) 135 mg/dL (70-99) 210 mg/dL (70-99) 189 mg/dL (70-99) 151 mg/dL (70-99) Test 09/24/20 08:00 09/24/20 10:38 09/24/20 11:39 09/24/20 17:43 O2 Saturation 99 % (92-99) Arterial Blood pH 7.44 (7.35-7.45) Arterial Blood pCO2 at Patient Temp 31 mmHg (35-46) Arterial Blood pO2 at Patient Temp 156 mmHg (65-108) Arterial Blood HCO3 20 mmol/L (21-28) Arterial Blood Base Excess -3 mmol/L (-3-3) FiO2 100 Glucose (Fingerstick) 136 mg/dL (70-99) 135 mg/dL (70-99) 195 mg/dL (70-99) Test 09/24/20 23:43 09/25/20 05:20 09/25/20 05:35 09/25/20 07:45 Glucose (Fingerstick) 178 mg/dL (70-99) 145 mg/dL (70-99) White Blood Count 7.7 x10^3/uL (4.0-11.0) Red Blood Count 4.84 x10^6/uL (4.30-5.70) Hemoglobin 14.5 g/dL (13.0-17.5) Hematocrit 42.6 % (39.0-53.0) Mean Corpuscular Volume 88 fL (79-100) Mean Corpuscular Hemoglobin 30 pg (25-35) Mean Corpuscular Hemoglobin Concent 34 g/dL (31-37) Red Cell Distribution Width 14.0 % (11.5-14.5) Platelet Count 190 x10^3/uL (140-400) Neutrophils (%) (Auto) 83 % (31-73) Lymphocytes (%) (Auto) 9 % (24-48) Monocytes (%) (Auto) 8 % (0-9) Eosinophils (%) (Auto) 0 % (0-3) Basophils (%) (Auto) 0 % (0-3) Neutrophils # (Auto) 6.4 x10^3/uL (1.8-7.7) Lymphocytes # (Auto) 0.7 x10^3/uL (1.0-4.8) Monocytes # (Auto) 0.6 x10^3/uL (0.0-1.1) Eosinophils # (Auto) 0.0 x10^3/uL (0.0-0.7) Basophils # (Auto) 0.0 x10^3/uL (0.0-0.2) Sodium Level 146 mmol/L (136-145) Potassium Level 3.4 mmol/L (3.5-5.1) Chloride Level 111 mmol/L (98-107) Carbon Dioxide Level 25 mmol/L (21-32) Anion Gap 10 (6-14) Blood Urea Nitrogen 21 mg/dL (8-26) Creatinine 1.0 mg/dL (0.7-1.3) Estimated GFR (Cockcroft-Gault) 75.5 Glucose Level 144 mg/dL (70-99) Calcium Level 8.1 mg/dL (8.5-10.1) C-Reactive Protein, Quantitative 80.6 mg/L (0-3.3) O2 Saturation 96 % (92-99) Arterial Blood pH 7.41 (7.35-7.45) Arterial Blood pCO2 at Patient Temp 40 mmHg (35-46) Arterial Blood pO2 at Patient Temp 86 mmHg (65-108) Arterial Blood HCO3 25 mmol/L (21-28) Arterial Blood Base Excess 0 mmol/L (-3-3) FiO2 80/vent Laboratory Tests Test 09/24/20 10:38 09/24/20 11:39 09/24/20 17:43 09/24/20 23:43 Glucose (Fingerstick) 136 mg/dL (70-99) 135 mg/dL (70-99) 195 mg/dL (70-99) 178 mg/dL (70-99) Test 09/25/20 05:20 09/25/20 05:35 09/25/20 07:45 Glucose (Fingerstick) 145 mg/dL (70-99) White Blood Count 7.7 x10^3/uL (4.0-11.0) Red Blood Count 4.84 x10^6/uL (4.30-5.70) Hemoglobin 14.5 g/dL (13.0-17.5) Hematocrit 42.6 % (39.0-53.0) Mean Corpuscular Volume 88 fL (79-100) Mean Corpuscular Hemoglobin 30 pg (25-35) Mean Corpuscular Hemoglobin Concent 34 g/dL (31-37) Red Cell Distribution Width 14.0 % (11.5-14.5) Platelet Count 190 x10^3/uL (140-400) Neutrophils (%) (Auto) 83 % (31-73) Lymphocytes (%) (Auto) 9 % (24-48) Monocytes (%) (Auto) 8 % (0-9) Eosinophils (%) (Auto) 0 % (0-3) Basophils (%) (Auto) 0 % (0-3) Neutrophils # (Auto) 6.4 x10^3/uL (1.8-7.7) Lymphocytes # (Auto) 0.7 x10^3/uL (1.0-4.8) Monocytes # (Auto) 0.6 x10^3/uL (0.0-1.1) Eosinophils # (Auto) 0.0 x10^3/uL (0.0-0.7) Basophils # (Auto) 0.0 x10^3/uL (0.0-0.2) Sodium Level 146 mmol/L (136-145) Potassium Level 3.4 mmol/L (3.5-5.1) Chloride Level 111 mmol/L (98-107) Carbon Dioxide Level 25 mmol/L (21-32) Anion Gap 10 (6-14) Blood Urea Nitrogen 21 mg/dL (8-26) Creatinine 1.0 mg/dL (0.7-1.3) Estimated GFR (Cockcroft-Gault) 75.5 Glucose Level 144 mg/dL (70-99) Calcium Level 8.1 mg/dL (8.5-10.1) C-Reactive Protein, Quantitative 80.6 mg/L (0-3.3) O2 Saturation 96 % (92-99) Arterial Blood pH 7.41 (7.35-7.45) Arterial Blood pCO2 at Patient Temp 40 mmHg (35-46) Arterial Blood pO2 at Patient Temp 86 mmHg (65-108) Arterial Blood HCO3 25 mmol/L (21-28) Arterial Blood Base Excess 0 mmol/L (-3-3) FiO2 80/vent Medications Active Scripts Medications Dose Route/Sig Max Daily Dose Days Date Category Icosapent Ethyl 1 Gm Capsule 2 Cap PO BID 09/20/20 Reported Metformin Hcl 1,000 Mg Tablet 1 Tab PO BID 09/20/20 Reported Rybelsus (Semaglutide) 7 Mg Tablet 1 Tab PO DAILY 09/20/20 Reported Farxiga (Dapagliflozin Propanediol) 10 Mg Tablet 1 Tab PO DAILY 09/20/20 Reported Trelegy Ellipta 100-62.5-25 (Fluticasone/Umeclidin/Vilanter) 1 Each Blst.w.dev 1 Puff INH DAILY 09/20/20 Reported Benzonatate 200 Mg Capsule 1 Cap PO TID PRN 09/20/20 Reported Montelukast Sodium 10 Mg Tablet 1 Tab PO DAILY 09/20/20 Reported Loratadine 10 Mg Tablet 1 Tab PO DAILY 09/20/20 Reported Fluticasone Propionate Nasal [place] (Fluticasone Propionate) 16 Gm [place].susp 1 Sprays NS BID 09/20/20 Reported Simvastatin 20 Mg Tablet 1 Tab PO QHS 11/20/15 Reported Impression . 1. Acute hypoxic respiratory failure secondary to COVID-19 viral pneumonia/acute lung injury.---intubated 09/23/20 2. Abnormal chest x-ray consistent with mild infiltrates favoring COVID-19 viral pneumonia. 3. Leukopenia and thrombocytopenia due to COVID-19 viral pneumonia. 4. No significant tobacco history. Plan . Updated 09/25/20 Continue current vent support 22/500/80%/PEEP 9 Follow CXR/ABG, changes as needed, no changes today S/P remdesivir. Continue dexamethasone will need full 10 day course , started on 09/23/20 Continue empiric antibiotic on zoysn Continue TF for nutritional support DVT/GI PPX:shar D/W RN and RT Critical Care time 30 min ERIC GOTTLIEB MD Sep 25, 2020 09:53
[2020-09-25] MEDS ORDERED: POTASSIUM CHLORIDE 20MEQ 100 ML IV SCH (10:45)
[2020-09-25] MEDS: POTASSIUM CHLORIDE 10MEQ 100 ML IV SCH ×4 (11:23→14:44)
--- NOTE | 2020-09-25 16:08 | NUR ---
SS following up with discharge planning. SS reviewed pt chart and discussed with pt RN. Pt is currently on the vent at 70%. COVID19 positive. Pt on IV Zosyn and IV Decadron. Pt on Propofol and Fentanyl. Not stable. SS will continue to follow for discharge planning.
[2020-09-25] MEDS: SIMVASTATIN 20 MG TABLET PO SCH (21:03)
[2020-09-26] VITALS (24 sets, daily range): BP systolic 105–164; BP diastolic 52–73
[2020-09-26] MEDS: PROPOFOL 100 ML IV PRN ×4 (05:40→19:45)
[2020-09-26] MEDS: PIPERACILLIN/TAZOBACTAM 3.375 GM in IV NORMAL SALINE 50ML 50 ML IV SCH ×4 (05:41→23:30)
[2020-09-26] MEDS: INSULIN LISPRO 300 UNITS/3 ML VIAL. SQ SCH ×5 (06:00→23:34)
--- NOTE | 2020-09-26 06:17 | PDOC ---
PULMONARY PROGRESS NOTES DATE: 09/26/20 TIME: 06:13 Subjective Patient remains on vent support, 70% of PEEP eight Afebrile No concerns from nursing Vitals Vital Signs Date Time Temp Pulse Resp B/P (MAP) Pulse Ox O2 Delivery O2 Flow Rate FiO2 09/26/20 04:00 Mechanical Ventilator 09/26/20 04:00 98.8 58 25 118/59 (78) 98 98.8 09/26/20 00:28 40.0 Comments Visual exam done due to COVID-19. intubated No paradoxical breathing. No skin rash, no leg edema Lungs: Crackles, Other (Intubated) Labs Laboratory Tests Test 09/24/20 08:00 09/24/20 10:38 09/24/20 11:39 09/24/20 17:43 O2 Saturation 99 % (92-99) Arterial Blood pH 7.44 (7.35-7.45) Arterial Blood pCO2 at Patient Temp 31 mmHg (35-46) Arterial Blood pO2 at Patient Temp 156 mmHg (65-108) Arterial Blood HCO3 20 mmol/L (21-28) Arterial Blood Base Excess -3 mmol/L (-3-3) FiO2 100 Glucose (Fingerstick) 136 mg/dL (70-99) 135 mg/dL (70-99) 195 mg/dL (70-99) Test 09/24/20 23:43 09/25/20 05:20 09/25/20 05:35 09/25/20 07:45 Glucose (Fingerstick) 178 mg/dL (70-99) 145 mg/dL (70-99) White Blood Count 7.7 x10^3/uL (4.0-11.0) Red Blood Count 4.84 x10^6/uL (4.30-5.70) Hemoglobin 14.5 g/dL (13.0-17.5) Hematocrit 42.6 % (39.0-53.0) Mean Corpuscular Volume 88 fL (79-100) Mean Corpuscular Hemoglobin 30 pg (25-35) Mean Corpuscular Hemoglobin Concent 34 g/dL (31-37) Red Cell Distribution Width 14.0 % (11.5-14.5) Platelet Count 190 x10^3/uL (140-400) Neutrophils (%) (Auto) 83 % (31-73) Lymphocytes (%) (Auto) 9 % (24-48) Monocytes (%) (Auto) 8 % (0-9) Eosinophils (%) (Auto) 0 % (0-3) Basophils (%) (Auto) 0 % (0-3) Neutrophils # (Auto) 6.4 x10^3/uL (1.8-7.7) Lymphocytes # (Auto) 0.7 x10^3/uL (1.0-4.8) Monocytes # (Auto) 0.6 x10^3/uL (0.0-1.1) Eosinophils # (Auto) 0.0 x10^3/uL (0.0-0.7) Basophils # (Auto) 0.0 x10^3/uL (0.0-0.2) Sodium Level 146 mmol/L (136-145) Potassium Level 3.4 mmol/L (3.5-5.1) Chloride Level 111 mmol/L (98-107) Carbon Dioxide Level 25 mmol/L (21-32) Anion Gap 10 (6-14) Blood Urea Nitrogen 21 mg/dL (8-26) Creatinine 1.0 mg/dL (0.7-1.3) Estimated GFR (Cockcroft-Gault) 75.5 Glucose Level 144 mg/dL (70-99) Calcium Level 8.1 mg/dL (8.5-10.1) C-Reactive Protein, Quantitative 80.6 mg/L (0-3.3) O2 Saturation 96 % (92-99) Arterial Blood pH 7.41 (7.35-7.45) Arterial Blood pCO2 at Patient Temp 40 mmHg (35-46) Arterial Blood pO2 at Patient Temp 86 mmHg (65-108) Arterial Blood HCO3 25 mmol/L (21-28) Arterial Blood Base Excess 0 mmol/L (-3-3) FiO2 80/vent Test 09/25/20 11:56 09/25/20 17:23 09/26/20 00:24 Glucose (Fingerstick) 122 mg/dL (70-99) 172 mg/dL (70-99) 149 mg/dL (70-99) Laboratory Tests Test 09/25/20 07:45 09/25/20 11:56 09/25/20 17:23 09/26/20 00:24 O2 Saturation 96 % (92-99) Arterial Blood pH 7.41 (7.35-7.45) Arterial Blood pCO2 at Patient Temp 40 mmHg (35-46) Arterial Blood pO2 at Patient Temp 86 mmHg (65-108) Arterial Blood HCO3 25 mmol/L (21-28) Arterial Blood Base Excess 0 mmol/L (-3-3) FiO2 80/vent Glucose (Fingerstick) 122 mg/dL (70-99) 172 mg/dL (70-99) 149 mg/dL (70-99) Medications Active Scripts Medications Dose Route/Sig Max Daily Dose Days Date Category Icosapent Ethyl 1 Gm Capsule 2 Cap PO BID 09/20/20 Reported Metformin Hcl 1,000 Mg Tablet 1 Tab PO BID 09/20/20 Reported Rybelsus (Semaglutide) 7 Mg Tablet 1 Tab PO DAILY 09/20/20 Reported Farxiga (Dapagliflozin Propanediol) 10 Mg Tablet 1 Tab PO DAILY 09/20/20 Reported Trelegy Ellipta 100-62.5-25 (Fluticasone/Umeclidin/Vilanter) 1 Each Blst.w.dev 1 Puff INH DAILY 09/20/20 Reported Benzonatate 200 Mg Capsule 1 Cap PO TID PRN 09/20/20 Reported Montelukast Sodium 10 Mg Tablet 1 Tab PO DAILY 09/20/20 Reported Loratadine 10 Mg Tablet 1 Tab PO DAILY 09/20/20 Reported Fluticasone Propionate Nasal [place] (Fluticasone Propionate) 16 Gm [place].susp 1 Sprays NS BID 09/20/20 Reported Simvastatin 20 Mg Tablet 1 Tab PO QHS 11/20/15 Reported Comments Chest x-ray reviewed by me 09/26/2020. Bilateral infiltrates with mild improvement. Impression . 1. Acute hypoxic respiratory failure secondary to COVID-19 viral pneumonia/acute lung injury.---intubated 09/23/20 2. Abnormal chest x-ray consistent with mild infiltrates favoring COVID-19 viral pneumonia. 3. Leukopenia and thrombocytopenia due to COVID-19 viral pneumonia.--improved 4. No significant tobacco history. Plan . Updated 09/26/20 Continue current vent support 22/500/70%/PEEP 8 Follow CXR/ABG, changes as needed, S/P remdesivir. Continue dexamethasone will need full 10 day course , started on 09/23/20 Continue empiric antibiotic on zoysn Continue TF for nutritional support DVT/GI PPX:lovenox D/W RN and RT Critical Care time 30 min ERIC GOTTLIEB MD Sep 26, 2020 06:17
--- NOTE | 2020-09-26 06:54 | RAD ---
AP chest x-ray COMPARISON: Chest x-ray September 23, 2020 HISTORY: Respiratory failure. FINDINGS: Endotracheal tube tip 7 cm above the romie. Nasogastric tube extends to the abdomen. Heart size is stable. No pneumothorax. No pleural effusions. Improved aeration the pulmonary interstitial and alveolar infiltrates demonstrate decreased density of the opacities since the prior study. IMPRESSION: Lines and tubes as described above. No pneumothorax. Improvement with decreased density o f the pulmonary infiltrates since the prior exam. Electronically signed by: Carlito Masters MD (09/26/2020 6:51 AM) [facility]
--- NOTE | 2020-09-26 07:30 | PDOC ---
[employer] PROGRESS NOTE Date of Service DOS: DATE: 09/26/20 TIME: 07:27 Chief Complaint Chief Complaint Acute COVID-19 pneumonia Acute hypoxic respiratory failure History of diabetes mellitus type 2 History of hypertension History of dyslipidemia Admit to medicine for further management Pulmonology consult Continue IV thiamine and vitamin C IV 4 mg dexamethasone Daily Pending ferritin, LDH, CRP, D-dimer labs Titrate O2 supplementation to maintain O2 saturation greater than 92% Lovenox for DVT prophylaxis Protonix GI prophylaxis ADA diet Full code Discussed with RN and SW Disposition patient management as above Surrogate decision maker is the Jenni Morrissey History of Present Illness History of Present Illness 65-year-old white male presenting today due to worsening cough and shortness of breath; patient also experiencing vomiting and diarrhea. Patient was recently diagnosed with COVID-19 on September 11 and has been doing well since that until a few days ago when his symptoms acutely worsened this morning. Has not received Covid vaccine. Close contacts at home have very similar symptoms. History notable for hypertension, type 2 diabetes, hyperlipidemia, GERD. 09/21/2020 No acute events overnight. Patient saturating 98% on 10 L nasal cannula. If patient requires increasing O2 requirements may consider pulmonology consult for further management. Continue Covid treatment protocol. Currently on Remdesi vir. Patient's chart, labs, images were reviewed and discussed with RN 09/22/2020 No acute events overnight. Patient saturating 91% on 10 L nasal cannula. Patient sitting over the side of bed and doing well and saying that he does have some shortness of breath with ambulation. Combivent inhaler ordered today. Patient's chart, labs, images were reviewed and discussed with RN 09/23/2020 No acute events overnight. Patient is requiring increasing O2 requirements. Saturating 88% on 15 L nonrebreather and also nasal cannula. Patient may require BiPAP. Discussed with pulmonary for possible ICU transfer. Patient's chart, labs, images were reviewed and discussed with RN 09/24/2020: Patient transferred to the ICU yesterday and intubated. Afebrile, currently breathing FiO2 100%, PEEP 10. Final dose of remdesivir today. Chest x- ray yesterday showed interval development of extensive bilateral airspace disease. We will continue treatment with steroids and IV antibiotics. Critical care time 30 minutes spent reviewing charts, reviewing labs, reviewing imaging, discussion with RN. 09/25/2020: Afebrile. On vent with FiO2 80%, PEEP 9. He has completed course of remdesivir. Continue IV steroids for total dose 10 days and IV Zosyn. Critical care time 30 minutes spent reviewing charts, reviewing labs, reviewing imaging, discussion with RN. 09/26/2020: Afebrile. Remains on vent with FiO2 70%, PEEP 8. Completed remdesivir. Continue prophylactic IV Zosyn. Continue IV steroids for total of 10 days (steroid course to end 09/30 with slow taper). Critical care time 30 minutes spent reviewing charts, reviewing labs, reviewing imaging, discussion with RN. Vitals/I&O Vitals/I&O: Vital Signs Date Time Temp Pulse Resp B/P (MAP) Pulse Ox O2 Delivery O2 Flow Rate FiO2 09/26/20 06:00 64 26 136/61 (86) 97 Ventilator 09/26/20 04:00 98.8 98.8 09/26/20 00:28 40.0 I & O 09/25/20 09/25/20 09/26/20 15:00 23:00 07:00 Intake Total 1117 ml 951 ml Output Total 210 ml 270 ml 155 ml Balance -210 ml 847 ml 796 ml Physical Exam General: mild distress, Other (Intubated and sedated) Heart: Regular rate Lungs: Crackles, Other (Intubated) Abdomen: Normal bowel sounds Extremities: No clubbing Skin: No rashes, No significant lesion Labs Labs: Laboratory Tests Test 09/25/20 07:45 09/25/20 11:56 09/25/20 17:23 09/26/20 00:24 O2 Saturation 96 % (92-99) Arterial Blood pH 7.41 (7.35-7.45) Arterial Blood pCO2 at Patient Temp 40 mmHg (35-46) Arterial Blood pO2 at Patient Temp 86 mmHg (65-108) Arterial Blood HCO3 25 mmol/L (21-28) Arterial Blood Base Excess 0 mmol/L (-3-3) FiO2 80/vent Glucose (Fingerstick) 122 mg/dL (70-99) 172 mg/dL (70-99) 149 mg/dL (70-99) Test 09/26/20 06:19 Glucose (Fingerstick) 120 mg/dL (70-99) Assessment and Plan Assessmemt and Plan Problems Medical Problems: (1) Bilateral pulmonary infiltrates on CXR Status: Acute (2) Fever Status: Acute (3) Hypoxia Status: Acute (4) Lab test positive for detection of COVID-19 virus Status: Acute Comment Review of Relevant I have reviewed the following items lukasz (where applicable) has been applied. Medications: Current Medications Medications (Trade) Dose Ordered Sig/Khadar Route PRN Reason Start Time Stop Time Status Last Admin Dose Admin Pantoprazole Sodium (PROTONIX VIAL for IV PUSH) 40 mg DAILY IVP 09/25/20 09:00 09/25/20 08:28 Potassium Chloride/Water 100 ml @ 100 mls/hr Q1H IV 09/25/20 11:00 09/25/20 15:01 DC 09/25/20 14:44 Justifications for Admission Other Justification FATOU LAMB MD Sep 26, 2020 07:30
[2020-09-26 08:14] LABS: BASE EXCESS ABG 0 mmol/L (-3-3); HCO3 ABG 24 mmol/L (21-28); PCO2 ABG 36 mmHg (35-46); PO2 ABG 84 mmHg (65-108)
[2020-09-26 08:56] LABS: BASO % 0 % (0-3); EOS # 0.2 x10^3/uL (0.0-0.7); EOS % 2 % (0-3); HEMATOCRIT 42.2 % (39.0-53.0); HEMOGLOBIN 14.2 g/dL (13.0-17.5); LYMPH # 0.7 x10^3/uL (1.0-4.8); LYMPH % 7 % (24-48); MEAN CORPUSCULAR HEMOGLOBIN 30 pg (25-35); MEAN CORPUSCULAR HGB CONC 34 g/dL (31-37); MEAN CORPUSCULAR VOLUME 88 fL (79-100); MONO % 10 % (0-9); NEUT # 8.3 x10^3/uL (1.8-7.7); NEUT % 82 % (31-73); PLATELET COUNT 229 x10^3/uL (140-400); RED BLOOD COUNT 4.81 x10^6/uL (4.30-5.70); RED CELL DISTRIBUTION WIDTH 14.2 % (11.5-14.5); WHITE BLOOD COUNT 10.2 x10^3/uL (4.0-11.0)
[2020-09-26 08:59] LABS: CALCIUM 8.2 mg/dL (8.5-10.1); CREATININE 0.9 mg/dL (0.7-1.3); GFR 85.2; POTASSIUM 3.6 mmol/L (3.5-5.1)
[2020-09-26 09:24] LABS: FIO2 ABG 70; SAT O2 ABG 94 % (92-99)
[2020-09-26] MEDS: PANTOPRAZOLE IV PUSH 40 MG VIAL. IVP SCH (09:31)
[2020-09-26] MEDS: ZINC SULFATE 220 MG CAPSULE. PO SCH (09:32)
[2020-09-26] MEDS: DEXAMETHASONE SOD PHOS 4 MG/ML VIAL IVP SCH (09:32)
[2020-09-26] MEDS: ASCORBIC ACID 1,000 MG TABLET PO SCH ×3 (09:32→20:39)
[2020-09-26] MEDS: ASPIRIN CHEWABLE 81 MG TABLET. PO SCH (09:32)
[2020-09-26] MEDS: SENNOSIDES/DOCUSATE 8.6/50MG TABLET. PO SCH ×2 (09:32→20:39)
[2020-09-26] MEDS: INSULIN GLARGINE SYRINGE. SQ SCH ×2 (09:34→20:40)
[2020-09-26] MEDS: ENOXAPARIN 40 MG/0.4 ML SYRINGE. SQ SCH ×2 (09:36→20:39)
[2020-09-26] MEDS: MULTIVITAMIN with MINERAL TABLET. PO SCH (09:36)
[2020-09-26 09:51] LABS: % BANDS 4 % (0-9); % EOS 3 % (0-5); % LYMPHS 9 % (24-48); % METAS 1 % (0-0); % MONOS 9 % (0-10); % MYELOS 4 % (0-0); % SEGS 70 % (35-66); PLT ESTIMATE ADEQUATE (ADEQUATE)
[2020-09-26 09:53] LABS: TOXIC GRANULATION SLIGHT
--- NOTE | 2020-09-26 15:28 | NUR ---
SS following up with discharge planning. SS reviewed pt chart and discussed with pt RN. Pt is currently on the vent at 70%. COVID19 positive. Pt on IV Zosyn and IV Decadron. Pt on Propofol, Fentanyl, and Versed. Not stable. SS will continue to follow for discharge planning.
[2020-09-26] MEDS: SIMVASTATIN 20 MG TABLET PO SCH (20:39)
[2020-09-27] VITALS (24 sets, daily range): BP systolic 120–176; BP diastolic 49–77
[2020-09-27] MEDS: MIDAZOLAM 100mg/100ml NS BAG 100 ML IV PRN ×2 (03:23→19:48)
[2020-09-27 05:50] LABS: CALCIUM 8.4 mg/dL (8.5-10.1); CREATININE 0.9 mg/dL (0.7-1.3); GFR 85.2; POTASSIUM 3.7 mmol/L (3.5-5.1)
[2020-09-27 05:58] LABS: BASO % 0 % (0-3); EOS # 0.2 x10^3/uL (0.0-0.7); EOS % 3 % (0-3); HEMATOCRIT 44.1 % (39.0-53.0); LYMPH # 0.6 x10^3/uL (1.0-4.8); LYMPH % 7 % (24-48); MEAN CORPUSCULAR HEMOGLOBIN 30 pg (25-35); MEAN CORPUSCULAR HGB CONC 34 g/dL (31-37); MEAN CORPUSCULAR VOLUME 88 fL (79-100); MONO # 0.8 x10^3/uL (0.0-1.1); MONO % 10 % (0-9); NEUT # 6.8 x10^3/uL (1.8-7.7); NEUT % 81 % (31-73); PLATELET COUNT 260 x10^3/uL (140-400); RED BLOOD COUNT 5.01 x10^6/uL (4.30-5.70); WHITE BLOOD COUNT 8.3 x10^3/uL (4.0-11.0)
[2020-09-27] MEDS: INSULIN LISPRO 300 UNITS/3 ML VIAL. SQ SCH ×3 (06:00→17:39)
[2020-09-27] MEDS: PROPOFOL 100 ML IV PRN ×4 (06:20→21:36)
[2020-09-27] MEDS: PIPERACILLIN/TAZOBACTAM 3.375 GM in IV NORMAL SALINE 50ML 50 ML IV SCH ×3 (06:21→17:31)
--- NOTE | 2020-09-27 06:22 | PDOC ---
[facility] PROGRESS NOTE Date of Service DOS: DATE: 09/27/20 TIME: 06:21 Chief Complaint Chief Complaint Acute COVID-19 pneumonia Acute hypoxic respiratory failure History of diabetes mellitus type 2 History of hypertension History of dyslipidemia Admit to medicine for further management Pulmonology consult Continue IV thiamine and vitamin C IV 4 mg dexamethasone Daily Pending ferritin, LDH, CRP, D-dimer labs Titrate O2 supplementation to maintain O2 saturation greater than 92% Lovenox for DVT prophylaxis Protonix GI prophylaxis ADA diet Full code Discussed with RN and SW Disposition patient management as above Surrogate decision maker is the Jenni Morrissey History of Present Illness History of Present Illness 65-year-old white male presenting today due to worsening cough and shortness of breath; patient also experiencing vomiting and diarrhea. Patient was recently diagnosed with COVID-19 on September 11 and has been doing well since that until a few days ago when his symptoms acutely worsened this morning. Has not received Covid vaccine. Close contacts at home have very similar symptoms. History notable for hypertension, type 2 diabetes, hyperlipidemia, GERD. 09/21/2020 No acute events overnight. Patient saturating 98% on 10 L nasal cannula. If patient requires increasing O2 requirements may consider pulmonology consult for further management. Continue Covid treatment protocol. Currently on Remdesi vir. Patient's chart, labs, images were reviewed and discussed with RN 09/22/2020 No acute events overnight. Patient saturating 91% on 10 L nasal cannula. Patient sitting over the side of bed and doing well and saying that he does have some shortness of breath with ambulation. Combivent inhaler ordered today. Patient's chart, labs, images were reviewed and discussed with RN 09/23/2020 No acute events overnight. Patient is requiring increasing O2 requirements. Saturating 88% on 15 L nonrebreather and also nasal cannula. Patient may require BiPAP. Discussed with pulmonary for possible ICU transfer. Patient's chart, labs, images were reviewed and discussed with RN 09/24/2020: Patient transferred to the ICU yesterday and intubated. Afebrile, currently breathing FiO2 100%, PEEP 10. Final dose of remdesivir today. Chest x- ray yesterday showed interval development of extensive bilateral airspace disease. We will continue treatment with steroids and IV antibiotics. Critical care time 30 minutes spent reviewing charts, reviewing labs, reviewing imaging, discussion with RN. 09/25/2020: Afebrile. On vent with FiO2 80%, PEEP 9. He has completed course of remdesivir. Continue IV steroids for total dose 10 days and IV Zosyn. Critical care time 30 minutes spent reviewing charts, reviewing labs, reviewing imaging, discussion with RN. 09/26/2020: Afebrile. Remains on vent with FiO2 70%, PEEP 8. Completed remdesivir. Continue prophylactic IV Zosyn. Continue IV steroids for total of 10 days (steroid course to end 09/30 with slow taper). Critical care time 30 minutes spent reviewing charts, reviewing labs, reviewing imaging, discussion with RN. 09/27/2020: No acute events overnight. Afebrile. On vent with FiO2 70%, PEEP 8. Continue with IV antibiotics and steroids, with taper. Completed remdesivir. Critical care time 30 minutes spent reviewing charts, reviewing labs, reviewing imaging, discussion with RN. Vitals/I&O Vitals/I&O: Vital Signs Date Time Temp Pulse Resp B/P (MAP) Pulse Ox O2 Delivery O2 Flow Rate FiO2 09/27/20 06:18 45 22 135/60 (85) 96 Ventilator 09/27/20 04:09 98.9 98.9 09/27/20 00:00 40.0 I & O 09/26/20 09/26/20 09/27/20 15:00 23:00 07:00 Intake Total 520 ml 1520 ml 939 ml Output Total 380 ml 270 ml 110 ml Balance 140 ml 1250 ml 829 ml Physical Exam General: mild distress, Other (Intubated and sedated) Heart: Regular rate Lungs: Crackles, Other (Intubated) Abdomen: Normal bowel sounds Extremities: No clubbing Skin: No rashes, No significant lesion Labs Labs: Laboratory Tests Test 09/26/20 08:09 09/26/20 08:35 09/26/20 12:46 09/26/20 16:26 O2 Saturation 94 % (92-99) Arterial Blood pH 7.45 (7.35-7.45) Arterial Blood pCO2 at Patient Temp 36 mmHg (35-46) Arterial Blood pO2 at Patient Temp 84 mmHg (65-108) Arterial Blood HCO3 24 mmol/L (21-28) Arterial Blood Base Excess 0 mmol/L (-3-3) FiO2 70 White Blood Count 10.2 x10^3/uL (4.0-11.0) Red Blood Count 4.81 x10^6/uL (4.30-5.70) Hemoglobin 14.2 g/dL (13.0-17.5) Hematocrit 42.2 % (39.0-53.0) Mean Corpuscular Volume 88 fL (79-100) Mean Corpuscular Hemoglobin 30 pg (25-35) Mean Corpuscular Hemoglobin Concent 34 g/dL (31-37) Red Cell Distribution Width 14.2 % (11.5-14.5) Platelet Count 229 x10^3/uL (140-400) Neutrophils (%) (Auto) 82 % (31-73) Lymphocytes (%) (Auto) 7 % (24-48) Monocytes (%) (Auto) 10 % (0-9) Eosinophils (%) (Auto) 2 % (0-3) Basophils (%) (Auto) 0 % (0-3) Neutrophils # (Auto) 8.3 x10^3/uL (1.8-7.7) Lymphocytes # (Auto) 0.7 x10^3/uL (1.0-4.8) Monocytes # (Auto) 1.0 x10^3/uL (0.0-1.1) Eosinophils # (Auto) 0.2 x10^3/uL (0.0-0.7) Basophils # (Auto) 0.0 x10^3/uL (0.0-0.2) Segmented Neutrophils % 70 % (35-66) Band Neutrophils % 4 % (0-9) Lymphocytes % 9 % (24-48) Monocytes % 9 % (0-10) Eosinophils % 3 % (0-5) Metamyelocytes % 1 % (0-0) Myelocytes % 4 % (0-0) Toxic Granulation Slight Platelet Estimate Adequate (ADEQUATE) Sodium Level 147 mmol/L (136-145) Potassium Level 3.6 mmol/L (3.5-5.1) Chloride Level 110 mmol/L (98-107) Carbon Dioxide Level 28 mmol/L (21-32) Anion Gap 9 (6-14) Blood Urea Nitrogen 22 mg/dL (8-26) Creatinine 0.9 mg/dL (0.7-1.3) Estimated GFR (Cockcroft-Gault) 85.2 Glucose Level 121 mg/dL (70-99) Calcium Level 8.2 mg/dL (8.5-10.1) Glucose (Fingerstick) 138 mg/dL (70-99) 161 mg/dL (70-99) Test 09/26/20 23:33 09/27/20 05:28 Glucose (Fingerstick) 150 mg/dL (70-99) Sodium Level 141 mmol/L (136-145) Potassium Level 3.7 mmol/L (3.5-5.1) Chloride Level 106 mmol/L (98-107) Carbon Dioxide Level 28 mmol/L (21-32) Anion Gap 7 (6-14) Blood Urea Nitrogen 19 mg/dL (8-26) Creatinine 0.9 mg/dL (0.7-1.3) Estimated GFR (Cockcroft-Gault) 85.2 Glucose Level 134 mg/dL (70-99) Calcium Level 8.4 mg/dL (8.5-10.1) Assessment and Plan Assessmemt and Plan Problems Medical Problems: (1) Bilateral pulmonary infiltrates on CXR Status: Acute (2) Fever Status: Acute (3) Hypoxia Status: Acute (4) Lab test positive for detection of COVID-19 virus Status: Acute Comment Review of Relevant I have reviewed the following items lukasz (where applicable) has been applied. Justifications for Admission Other Justification FATOU LAMB MD Sep 27, 2020 06:22
[2020-09-27 07:55] LABS: BASE EXCESS ABG 2 mmol/L (-3-3); HCO3 ABG 26 mmol/L (21-28); PCO2 ABG 37 mmHg (35-46); PO2 ABG 64 mmHg (65-108); SAT O2 ABG 92 % (92-99)
[2020-09-27 08:40] LABS: FIO2 ABG 70
[2020-09-27] MEDS: ASCORBIC ACID 1,000 MG TABLET PO SCH ×3 (08:46→21:09)
[2020-09-27] MEDS: MULTIVITAMIN with MINERAL TABLET. PO SCH (08:46)
[2020-09-27] MEDS: ASPIRIN CHEWABLE 81 MG TABLET. PO SCH (08:46)
[2020-09-27] MEDS: ZINC SULFATE 220 MG CAPSULE. PO SCH (08:46)
[2020-09-27] MEDS: PANTOPRAZOLE IV PUSH 40 MG VIAL. IVP SCH (08:46)
[2020-09-27] MEDS: DEXAMETHASONE SOD PHOS 4 MG/ML VIAL IVP SCH (08:47)
[2020-09-27] MEDS: ENOXAPARIN 40 MG/0.4 ML SYRINGE. SQ SCH ×2 (08:47→21:09)
[2020-09-27] MEDS: INSULIN GLARGINE SYRINGE. SQ SCH ×2 (08:48→22:14)
[2020-09-27] MEDS: SENNOSIDES/DOCUSATE 8.6/50MG TABLET. PO SCH ×2 (09:00→21:09)
--- NOTE | 2020-09-27 09:48 | PDOC ---
PULMONARY PROGRESS NOTES DATE: 09/27/20 TIME: 09:47 Subjective Patient remains on vent support, 70% of PEEP eight Afebrile No concerns from nursing Vitals Vital Signs Date Time Temp Pulse Resp B/P (MAP) Pulse Ox O2 Delivery O2 Flow Rate FiO2 09/27/20 09:08 97 Ventilator 09/27/20 07:04 20 09/27/20 06:34 40.0 09/27/20 06:18 45 135/60 (85) 09/27/20 04:09 98.9 98.9 Comments Visual exam done due to COVID-19. intubated No paradoxical breathing. No skin rash, no leg edema Labs Laboratory Tests Test 09/25/20 11:56 09/25/20 17:23 09/26/20 00:24 09/26/20 06:19 Glucose (Fingerstick) 122 mg/dL (70-99) 172 mg/dL (70-99) 149 mg/dL (70-99) 120 mg/dL (70-99) Test 09/26/20 08:09 09/26/20 08:35 09/26/20 12:46 09/26/20 16:26 O2 Saturation 94 % (92-99) Arterial Blood pH 7.45 (7.35-7.45) Arterial Blood pCO2 at Patient Temp 36 mmHg (35-46) Arterial Blood pO2 at Patient Temp 84 mmHg (65-108) Arterial Blood HCO3 24 mmol/L (21-28) Arterial Blood Base Excess 0 mmol/L (-3-3) FiO2 70 White Blood Count 10.2 x10^3/uL (4.0-11.0) Red Blood Count 4.81 x10^6/uL (4.30-5.70) Hemoglobin 14.2 g/dL (13.0-17.5) Hematocrit 42.2 % (39.0-53.0) Mean Corpuscular Volume 88 fL (79-100) Mean Corpuscular Hemoglobin 30 pg (25-35) Mean Corpuscular Hemoglobin Concent 34 g/dL (31-37) Red Cell Distribution Width 14.2 % (11.5-14.5) Platelet Count 229 x10^3/uL (140-400) Neutrophils (%) (Auto) 82 % (31-73) Lymphocytes (%) (Auto) 7 % (24-48) Monocytes (%) (Auto) 10 % (0-9) Eosinophils (%) (Auto) 2 % (0-3) Basophils (%) (Auto) 0 % (0-3) Neutrophils # (Auto) 8.3 x10^3/uL (1.8-7.7) Lymphocytes # (Auto) 0.7 x10^3/uL (1.0-4.8) Monocytes # (Auto) 1.0 x10^3/uL (0.0-1.1) Eosinophils # (Auto) 0.2 x10^3/uL (0.0-0.7) Basophils # (Auto) 0.0 x10^3/uL (0.0-0.2) Segmented Neutrophils % 70 % (35-66) Band Neutrophils % 4 % (0-9) Lymphocytes % 9 % (24-48) Monocytes % 9 % (0-10) Eosinophils % 3 % (0-5) Metamyelocytes % 1 % (0-0) Myelocytes % 4 % (0-0) Toxic Granulation Slight Platelet Estimate Adequate (ADEQUATE) Sodium Level 147 mmol/L (136-145) Potassium Level 3.6 mmol/L (3.5-5.1) Chloride Level 110 mmol/L (98-107) Carbon Dioxide Level 28 mmol/L (21-32) Anion Gap 9 (6-14) Blood Urea Nitrogen 22 mg/dL (8-26) Creatinine 0.9 mg/dL (0.7-1.3) Estimated GFR (Cockcroft-Gault) 85.2 Glucose Level 121 mg/dL (70-99) Calcium Level 8.2 mg/dL (8.5-10.1) Glucose (Fingerstick) 138 mg/dL (70-99) 161 mg/dL (70-99) Test 09/26/20 23:33 09/27/20 05:28 09/27/20 07:51 Glucose (Fingerstick) 150 mg/dL (70-99) White Blood Count 8.3 x10^3/uL (4.0-11.0) Red Blood Count 5.01 x10^6/uL (4.30-5.70) Hemoglobin 15.0 g/dL (13.0-17.5) Hematocrit 44.1 % (39.0-53.0) Mean Corpuscular Volume 88 fL (79-100) Mean Corpuscular Hemoglobin 30 pg (25-35) Mean Corpuscular Hemoglobin Concent 34 g/dL (31-37) Red Cell Distribution Width 14.0 % (11.5-14.5) Platelet Count 260 x10^3/uL (140-400) Neutrophils (%) (Auto) 81 % (31-73) Lymphocytes (%) (Auto) 7 % (24-48) Monocytes (%) (Auto) 10 % (0-9) Eosinophils (%) (Auto) 3 % (0-3) Basophils (%) (Auto) 0 % (0-3) Neutrophils # (Auto) 6.8 x10^3/uL (1.8-7.7) Lymphocytes # (Auto) 0.6 x10^3/uL (1.0-4.8) Monocytes # (Auto) 0.8 x10^3/uL (0.0-1.1) Eosinophils # (Auto) 0.2 x10^3/uL (0.0-0.7) Basophils # (Auto) 0.0 x10^3/uL (0.0-0.2) Sodium Level 141 mmol/L (136-145) Potassium Level 3.7 mmol/L (3.5-5.1) Chloride Level 106 mmol/L (98-107) Carbon Dioxide Level 28 mmol/L (21-32) Anion Gap 7 (6-14) Blood Urea Nitrogen 19 mg/dL (8-26) Creatinine 0.9 mg/dL (0.7-1.3) Estimated GFR (Cockcroft-Gault) 85.2 Glucose Level 134 mg/dL (70-99) Calcium Level 8.4 mg/dL (8.5-10.1) O2 Saturation 92 % (92-99) Arterial Blood pH 7.45 (7.35-7.45) Arterial Blood pCO2 at Patient Temp 37 mmHg (35-46) Arterial Blood pO2 at Patient Temp 64 mmHg (65-108) Arterial Blood HCO3 26 mmol/L (21-28) Arterial Blood Base Excess 2 mmol/L (-3-3) FiO2 70 Laboratory Tests Test 09/26/20 12:46 09/26/20 16:26 09/26/20 23:33 09/27/20 05:28 Glucose (Fingerstick) 138 mg/dL (70-99) 161 mg/dL (70-99) 150 mg/dL (70-99) White Blood Count 8.3 x10^3/uL (4.0-11.0) Red Blood Count 5.01 x10^6/uL (4.30-5.70) Hemoglobin 15.0 g/dL (13.0-17.5) Hematocrit 44.1 % (39.0-53.0) Mean Corpuscular Volume 88 fL (79-100) Mean Corpuscular Hemoglobin 30 pg (25-35) Mean Corpuscular Hemoglobin Concent 34 g/dL (31-37) Red Cell Distribution Width 14.0 % (11.5-14.5) Platelet Count 260 x10^3/uL (140-400) Neutrophils (%) (Auto) 81 % (31-73) Lymphocytes (%) (Auto) 7 % (24-48) Monocytes (%) (Auto) 10 % (0-9) Eosinophils (%) (Auto) 3 % (0-3) Basophils (%) (Auto) 0 % (0-3) Neutrophils # (Auto) 6.8 x10^3/uL (1.8-7.7) Lymphocytes # (Auto) 0.6 x10^3/uL (1.0-4.8) Monocytes # (Auto) 0.8 x10^3/uL (0.0-1.1) Eosinophils # (Auto) 0.2 x10^3/uL (0.0-0.7) Basophils # (Auto) 0.0 x10^3/uL (0.0-0.2) Sodium Level 141 mmol/L (136-145) Potassium Level 3.7 mmol/L (3.5-5.1) Chloride Level 106 mmol/L (98-107) Carbon Dioxide Level 28 mmol/L (21-32) Anion Gap 7 (6-14) Blood Urea Nitrogen 19 mg/dL (8-26) Creatinine 0.9 mg/dL (0.7-1.3) Estimated GFR (Cockcroft-Gault) 85.2 Glucose Level 134 mg/dL (70-99) Calcium Level 8.4 mg/dL (8.5-10.1) Test 09/27/20 07:51 O2 Saturation 92 % (92-99) Arterial Blood pH 7.45 (7.35-7.45) Arterial Blood pCO2 at Patient Temp 37 mmHg (35-46) Arterial Blood pO2 at Patient Temp 64 mmHg (65-108) Arterial Blood HCO3 26 mmol/L (21-28) Arterial Blood Base Excess 2 mmol/L (-3-3) FiO2 70 Medications Active Scripts Medications Dose Route/Sig Max Daily Dose Days Date Category Icosapent Ethyl 1 Gm Capsule 2 Cap PO BID 09/20/20 Reported Metformin Hcl 1,000 Mg Tablet 1 Tab PO BID 09/20/20 Reported Rybelsus (Semaglutide) 7 Mg Tablet 1 Tab PO DAILY 09/20/20 Reported Farxiga (Dapagliflozin Propanediol) 10 Mg Tablet 1 Tab PO DAILY 09/20/20 Reported Trelegy Ellipta 100-62.5-25 (Fluticasone/Umeclidin/Vilanter) 1 Each Blst.w.dev 1 Puff INH DAILY 09/20/20 Reported Benzonatate 200 Mg Capsule 1 Cap PO TID PRN 09/20/20 Reported Montelukast Sodium 10 Mg Tablet 1 Tab PO DAILY 09/20/20 Reported Loratadine 10 Mg Tablet 1 Tab PO DAILY 09/20/20 Reported Fluticasone Propionate Nasal Birdseye (Fluticasone Propionate) 16 Gm Birdseye.susp 1 Sprays NS BID 09/20/20 Reported Simvastatin 20 Mg Tablet 1 Tab PO QHS 11/20/15 Reported Comments Chest x-ray reviewed by me 09/26/2020. Bilateral infiltrates with mild improvement. Impression . 1. Acute hypoxic respiratory failure secondary to COVID-19 viral pneumonia/acute lung injury.---intubated 09/23/20 2. Abnormal chest x-ray consistent with mild infiltrates favoring COVID-19 viral pneumonia. 3. Leukopenia and thrombocytopenia due to COVID-19 viral pneumonia.--improved 4. No significant tobacco history. Plan . Updated 09/27/20 Continue current vent support 22/500/70%/PEEP 8 Follow CXR/ABG, changes as needed, S/P remdesivir. Continue dexamethasone will need full 10 day course , started on 09/23/20 Continue empiric antibiotic on zoysn Continue TF for nutritional support DVT/GI PPX:lovenox D/W RN and RT ERIC GOTTLIEB MD Sep 27, 2020 09:48
--- NOTE | 2020-09-27 10:07 | NUR ---
SS following up with discharge planning. SS reviewed pt chart and discussed with pt RN. Pt is currently on the vent at 70%. COVID19 positive. Pt on IV Zosyn and IV Decadron. Pt on Propofol, Fentanyl, and Versed. Tube feeds. Not stable. SS will continue to follow for discharge planning.
--- NOTE | 2020-09-27 10:52 | RAD ---
EXAM: Supine AP view of the abdomen DATE: 09/27/2020 9:25 AM INDICATION: Reason: check OG placement / Spl. Instructions: / History: COMPARISON: No Prior FINDINGS/ IMPRESSION: No abnormal small or large bowel dilatation. Cholecystectomy clips are seen. Gaseous distention of t he colon, normal in caliber. No abnormal soft tissue mass effect. No suspicious calcifications are s een. Evaluation for free intraperitoneal gas is limited on this supine exam. Bilateral lung base airspace opacities are seen. Of note, the OG tube is not seen on the submitted images. Electronically signed by: Herbert Johnson MD (09/27/2020 10:50 AM) [id number]
--- NOTE | 2020-09-27 13:16 | RAD ---
EXAM: Supine AP view of the abdomen DATE: 09/27/2020 10:06 AM INDICATION: Reason: replaced OG tube / Spl. Instructions: / History: COMPARISON: 09/27/2020 FINDINGS/ IMPRESSION: Enteric tube tip projects over the body the stomach. Bilateral parenchymal lung airspace opacities ar e seen. Electronically signed by: Herbert Johnson MD (09/27/2020 1:14 PM) [id number]
[2020-09-27] MEDS: SIMVASTATIN 20 MG TABLET PO SCH (21:09)
[2020-09-28] VITALS (24 sets, daily range): BP systolic 121–171; BP diastolic 59–80
[2020-09-28] MEDS: PIPERACILLIN/TAZOBACTAM 3.375 GM in IV NORMAL SALINE 50ML 50 ML IV SCH ×4 (00:35→17:52)
[2020-09-28] MEDS: INSULIN LISPRO 300 UNITS/3 ML VIAL. SQ SCH ×4 (00:36→17:58)
[2020-09-28 05:41] LABS: BASO % 0 % (0-3); EOS # 0.2 x10^3/uL (0.0-0.7); EOS % 2 % (0-3); HEMATOCRIT 41.2 % (39.0-53.0); HEMOGLOBIN 13.9 g/dL (13.0-17.5); LYMPH # 0.5 x10^3/uL (1.0-4.8); LYMPH % 4 % (24-48); MEAN CORPUSCULAR HEMOGLOBIN 30 pg (25-35); MEAN CORPUSCULAR HGB CONC 34 g/dL (31-37); MEAN CORPUSCULAR VOLUME 87 fL (79-100); MONO # 0.9 x10^3/uL (0.0-1.1); MONO % 9 % (0-9); NEUT # 9.1 x10^3/uL (1.8-7.7); NEUT % 85 % (31-73); PLATELET COUNT 294 x10^3/uL (140-400); RED BLOOD COUNT 4.73 x10^6/uL (4.30-5.70); RED CELL DISTRIBUTION WIDTH 13.8 % (11.5-14.5); WHITE BLOOD COUNT 10.7 x10^3/uL (4.0-11.0)
[2020-09-28 05:46] LABS: CALCIUM 8.1 mg/dL (8.5-10.1); CREATININE 0.7 mg/dL (0.7-1.3); GFR 113.9; POTASSIUM 3.7 mmol/L (3.5-5.1)
--- NOTE | 2020-09-28 07:18 | PDOC ---
[facility] [facility] PROGRESS NOTE Date of Service DOS: DATE: 09/28/20 TIME: 07:13 Chief Complaint Chief Complaint Acute COVID-19 pneumonia Acute hypoxic respiratory failure Sepsis History of diabetes mellitus type 2 History of hypertension History of dyslipidemia Admit to medicine for further management Pulmonology consult Continue IV thiamine and vitamin C IV 4 mg dexamethasone Daily Pending ferritin, LDH, CRP, D-dimer labs Titrate O2 supplementation to maintain O2 saturation greater than 92% Lovenox for DVT prophylaxis Protonix GI prophylaxis ADA diet Full code Discussed with RN and SW Disposition patient management as above Surrogate decision maker is the Jenni Morrissey History of Present Illness History of Present Illness 65-year-old white male presenting today due to worsening cough and shortness of breath; patient also experiencing vomiting and diarrhea. Patient was recently diagnosed with COVID-19 on September 11 and has been doing well since that until a few days ago when his symptoms acutely worsened this morning. Has not received Covid vaccine. Close contacts at home have very similar symptoms. History notable for hypertension, type 2 diabetes, hyperlipidemia, GERD. 09/21/2020 No acute events overnight. Patient saturating 98% on 10 L nasal cannula. If patient requires increasing O2 requirements may consider pulmonology consult for further management. Continue Covid treatment protocol. Currently on Remdesivir. Patient's chart, labs, images were reviewed and discussed with RN 09/22/2020 No acute events overnight. Patient saturating 91% on 10 L nasal cannula. Patient sitting over the side of bed and doing well and saying that he does have some shortness of breath with ambulation. Combivent inhaler ordered today. Patient's chart, labs, images were reviewed and discussed with RN 09/23/2020 No acute events overnight. Patient is requiring increasing O2 requirements. Saturating 88% on 15 L nonrebreather and also nasal cannula. Patient may require BiPAP. Discussed with pulmonary for possible ICU transfer. Patient's chart, labs, images were reviewed and discussed with RN 09/24/2020: Patient transferred to the ICU yesterday and intubated. Afebrile, currently breathing FiO2 100%, PEEP 10. Final dose of remdesivir today. Chest x- ray yesterday showed interval development of extensive bilateral airspace disease. We will continue treatment with steroids and IV antibiotics. Critical care time 30 minutes spent reviewing charts, reviewing labs, reviewing imaging, discussion with RN. 09/25/2020: Afebrile. On vent with FiO2 80%, PEEP 9. He has completed course of remdesivir. Continue IV steroids for total dose 10 days and IV Zosyn. Critical care time 30 minutes spent reviewing charts, reviewing labs, reviewing imaging, discussion with RN. 09/26/2020: Afebrile. Remains on vent with FiO2 70%, PEEP 8. Completed remdesivir. Continue prophylactic IV Zosyn. Continue IV steroids for total of 10 days (steroid course to end 09/30 with slow taper). Critical care time 30 minutes spent reviewing charts, reviewing labs, reviewing imaging, discussion w adelaide KEARNS. 09/27/2020: No acute events overnight. Afebrile. On vent with FiO2 70%, PEEP 8. Continue with IV antibiotics and steroids, with taper. Completed remdesivir. Critical care time 30 minutes spent reviewing charts, reviewing labs, reviewing imaging, discussion with RN. 09/28/2020: Afebrile. On vent with FiO2 90%, PEEP 8. Completed remdesivir. Continue IV antibiotics. Continue steroids to complete 10-day course 09/30/2020). KUB yesterday showed enteric tube tip projects over the body the stomach; bilateral parenchymal lung airspace opacities are seen. Critical care time 30 minutes spent reviewing charts, reviewing labs, reviewing imaging, discussion with RN. Vitals/I&O Vitals/I&O: Vital Signs Date Time Temp Pulse Resp B/P (MAP) Pulse Ox O2 Delivery O2 Flow Rate FiO2 09/28/20 06:48 23 96 Ventilator 40.0 09/28/20 06:21 53 145/61 (89) 09/28/20 04:00 97.9 97.9 I & O 09/27/20 09/27/20 09/28/20 15:00 23:00 07:00 Intake Total 400 ml 1078 ml 1486 ml Output Total 465 ml 415 ml 320 ml Balance -65 ml 663 ml 1166 ml Physical Exam General: mild distress, Other (Intubated and sedated) Heart: Regular rate Abdomen: Normal bowel sounds Extremities: No clubbing Skin: No rashes, No significant lesion Labs Labs: Laboratory Tests Test 09/27/20 07:51 09/27/20 12:08 09/27/20 17:33 09/27/20 22:18 O2 Saturation 92 % (92-99) Arterial Blood pH 7.45 (7.35-7.45) Arterial Blood pCO2 at Patient Temp 37 mmHg (35-46) Arterial Blood pO2 at Patient Temp 64 mmHg (65-108) Arterial Blood HCO3 26 mmol/L (21-28) Arterial Blood Base Excess 2 mmol/L (-3-3) FiO2 70 Glucose (Fingerstick) 160 mg/dL (70-99) 185 mg/dL (70-99) 185 mg/dL (70-99) Test 09/28/20 00:34 09/28/20 04:30 Glucose (Fingerstick) 186 mg/dL (70-99) White Blood Count 10.7 x10^3/uL (4.0-11.0) Red Blood Count 4.73 x10^6/uL (4.30-5.70) Hemoglobin 13.9 g/dL (13.0-17.5) Hematocrit 41.2 % (39.0-53.0) Mean Corpuscular Volume 87 fL (79-100) Mean Corpuscular Hemoglobin 30 pg (25-35) Mean Corpuscular Hemoglobin Concent 34 g/dL (31-37) Red Cell Distribution Width 13.8 % (11.5-14.5) Platelet Count 294 x10^3/uL (140-400) Neutrophils (%) (Auto) 85 % (31-73) Lymphocytes (%) (Auto) 4 % (24-48) Monocytes (%) (Auto) 9 % (0-9) Eosinophils (%) (Auto) 2 % (0-3) Basophils (%) (Auto) 0 % (0-3) Neutrophils # (Auto) 9.1 x10^3/uL (1.8-7.7) Lymphocytes # (Auto) 0.5 x10^3/uL (1.0-4.8) Monocytes # (Auto) 0.9 x10^3/uL (0.0-1.1) Eosinophils # (Auto) 0.2 x10^3/uL (0.0-0.7) Basophils # (Auto) 0.0 x10^3/uL (0.0-0.2) Sodium Level 144 mmol/L (136-145) Potassium Level 3.7 mmol/L (3.5-5.1) Chloride Level 109 mmol/L (98-107) Carbon Dioxide Level 29 mmol/L (21-32) Anion Gap 6 (6-14) Blood Urea Nitrogen 18 mg/dL (8-26) Creatinine 0.7 mg/dL (0.7-1.3) Estimated GFR (Cockcroft-Gault) 113.9 Glucose Level 156 mg/dL (70-99) Calcium Level 8.1 mg/dL (8.5-10.1) Assessment and Plan Assessmemt and Plan Problems Medical Problems: (1) Bilateral pulmonary infiltrates on CXR Status: Acute (2) Fever Status: Acute (3) Hypoxia Status: Acute (4) Lab test positive for detection of COVID-19 virus Status: Acute Comment Review of Relevant I have reviewed the following items lukasz (where applicable) has been applied. Justifications for Admission Other Justification FATOU LAMB MD Sep 28, 2020 07:18
[2020-09-28 07:41] LABS: BASE EXCESS ABG 3 mmol/L (-3-3); HCO3 ABG 27 mmol/L (21-28); PCO2 ABG 43 mmHg (35-46); PO2 ABG 57 mmHg (65-108); SAT O2 ABG 89 % (92-99)
[2020-09-28 07:44] LABS: FIO2 ABG 90
[2020-09-28] MEDS: ZINC SULFATE 220 MG CAPSULE. PO SCH (08:02)
[2020-09-28] MEDS: DEXAMETHASONE SOD PHOS 4 MG/ML VIAL IVP SCH (08:02)
[2020-09-28] MEDS: ASCORBIC ACID 1,000 MG TABLET PO SCH ×3 (08:02→20:37)
[2020-09-28] MEDS: MULTIVITAMIN with MINERAL TABLET. PO SCH (08:02)
[2020-09-28] MEDS: ASPIRIN CHEWABLE 81 MG TABLET. PO SCH (08:02)
[2020-09-28] MEDS: SENNOSIDES/DOCUSATE 8.6/50MG TABLET. PO SCH ×2 (08:02→20:37)
[2020-09-28] MEDS: PANTOPRAZOLE IV PUSH 40 MG VIAL. IVP SCH (08:02)
[2020-09-28] MEDS: MIDAZOLAM 100mg/100ml NS BAG 100 ML IV PRN ×2 (08:03→23:47)
[2020-09-28] MEDS: ENOXAPARIN 40 MG/0.4 ML SYRINGE. SQ SCH ×2 (08:03→20:37)
[2020-09-28] MEDS: INSULIN GLARGINE SYRINGE. SQ SCH ×2 (08:16→20:42)
--- NOTE | 2020-09-28 09:31 | PDOC ---
PULMONARY PROGRESS NOTES DATE: 09/28/20 TIME: 09:29 Subjective Patient remains on vent support, FiO2 of 90% PEEP of 8 Afebrile No concerns from nursing Vitals Vital Signs Date Time Temp Pulse Resp B/P (MAP) Pulse Ox O2 Delivery O2 Flow Rate FiO2 09/28/20 07:26 96 Ventilator 09/28/20 07:18 22 4.0 09/28/20 07:14 58 142/61 (88) 09/28/20 04:00 97.9 97.9 Comments Visual exam done due to COVID-19. intubated No paradoxical breathing. No skin rash, no leg edema Labs Laboratory Tests Test 09/26/20 12:46 09/26/20 16:26 09/26/20 23:33 09/27/20 05:28 Glucose (Fingerstick) 138 mg/dL (70-99) 161 mg/dL (70-99) 150 mg/dL (70-99) White Blood Count 8.3 x10^3/uL (4.0-11.0) Red Blood Count 5.01 x10^6/uL (4.30-5.70) Hemoglobin 15.0 g/dL (13.0-17.5) Hematocrit 44.1 % (39.0-53.0) Mean Corpuscular Volume 88 fL (79-100) Mean Corpuscular Hemoglobin 30 pg (25-35) Mean Corpuscular Hemoglobin Concent 34 g/dL (31-37) Red Cell Distribution Width 14.0 % (11.5-14.5) Platelet Count 260 x10^3/uL (140-400) Neutrophils (%) (Auto) 81 % (31-73) Lymphocytes (%) (Auto) 7 % (24-48) Monocytes (%) (Auto) 10 % (0-9) Eosinophils (%) (Auto) 3 % (0-3) Basophils (%) (Auto) 0 % (0-3) Neutrophils # (Auto) 6.8 x10^3/uL (1.8-7.7) Lymphocytes # (Auto) 0.6 x10^3/uL (1.0-4.8) Monocytes # (Auto) 0.8 x10^3/uL (0.0-1.1) Eosinophils # (Auto) 0.2 x10^3/uL (0.0-0.7) Basophils # (Auto) 0.0 x10^3/uL (0.0-0.2) Sodium Level 141 mmol/L (136-145) Potassium Level 3.7 mmol/L (3.5-5.1) Chloride Level 106 mmol/L (98-107) Carbon Dioxide Level 28 mmol/L (21-32) Anion Gap 7 (6-14) Blood Urea Nitrogen 19 mg/dL (8-26) Creatinine 0.9 mg/dL (0.7-1.3) Estimated GFR (Cockcroft-Gault) 85.2 Glucose Level 134 mg/dL (70-99) Calcium Level 8.4 mg/dL (8.5-10.1) Test 09/27/20 07:51 09/27/20 12:08 09/27/20 17:33 09/27/20 22:18 O2 Saturation 92 % (92-99) Arterial Blood pH 7.45 (7.35-7.45) Arterial Blood pCO2 at Patient Temp 37 mmHg (35-46) Arterial Blood pO2 at Patient Temp 64 mmHg (65-108) Arterial Blood HCO3 26 mmol/L (21-28) Arterial Blood Base Excess 2 mmol/L (-3-3) FiO2 70 Glucose (Fingerstick) 160 mg/dL (70-99) 185 mg/dL (70-99) 185 mg/dL (70-99) Test 09/28/20 00:34 09/28/20 04:30 09/28/20 07:35 Glucose (Fingerstick) 186 mg/dL (70-99) White Blood Count 10.7 x10^3/uL (4.0-11.0) Red Blood Count 4.73 x10^6/uL (4.30-5.70) Hemoglobin 13.9 g/dL (13.0-17.5) Hematocrit 41.2 % (39.0-53.0) Mean Corpuscular Volume 87 fL (79-100) Mean Corpuscular Hemoglobin 30 pg (25-35) Mean Corpuscular Hemoglobin Concent 34 g/dL (31-37) Red Cell Distribution Width 13.8 % (11.5-14.5) Platelet Count 294 x10^3/uL (140-400) Neutrophils (%) (Auto) 85 % (31-73) Lymphocytes (%) (Auto) 4 % (24-48) Monocytes (%) (Auto) 9 % (0-9) Eosinophils (%) (Auto) 2 % (0-3) Basophils (%) (Auto) 0 % (0-3) Neutrophils # (Auto) 9.1 x10^3/uL (1.8-7.7) Lymphocytes # (Auto) 0.5 x10^3/uL (1.0-4.8) Monocytes # (Auto) 0.9 x10^3/uL (0.0-1.1) Eosinophils # (Auto) 0.2 x10^3/uL (0.0-0.7) Basophils # (Auto) 0.0 x10^3/uL (0.0-0.2) Sodium Level 144 mmol/L (136-145) Potassium Level 3.7 mmol/L (3.5-5.1) Chloride Level 109 mmol/L (98-107) Carbon Dioxide Level 29 mmol/L (21-32) Anion Gap 6 (6-14) Blood Urea Nitrogen 18 mg/dL (8-26) Creatinine 0.7 mg/dL (0.7-1.3) Estimated GFR (Cockcroft-Gault) 113.9 Glucose Level 156 mg/dL (70-99) Calcium Level 8.1 mg/dL (8.5-10.1) O2 Saturation 89 % (92-99) Arterial Blood pH 7.42 (7.35-7.45) Arterial Blood pCO2 at Patient Temp 43 mmHg (35-46) Arterial Blood pO2 at Patient Temp 57 mmHg (65-108) Arterial Blood HCO3 27 mmol/L (21-28) Arterial Blood Base Excess 3 mmol/L (-3-3) FiO2 90 Laboratory Tests Test 09/27/20 12:08 09/27/20 17:33 09/27/20 22:18 09/28/20 00:34 Glucose (Fingerstick) 160 mg/dL (70-99) 185 mg/dL (70-99) 185 mg/dL (70-99) 186 mg/dL (70-99) Test 09/28/20 04:30 09/28/20 07:35 White Blood Count 10.7 x10^3/uL (4.0-11.0) Red Blood Count 4.73 x10^6/uL (4.30-5.70) Hemoglobin 13.9 g/dL (13.0-17.5) Hematocrit 41.2 % (39.0-53.0) Mean Corpuscular Volume 87 fL (79-100) Mean Corpuscular Hemoglobin 30 pg (25-35) Mean Corpuscular Hemoglobin Concent 34 g/dL (31-37) Red Cell Distribution Width 13.8 % (11.5-14.5) Platelet Count 294 x10^3/uL (140-400) Neutrophils (%) (Auto) 85 % (31-73) Lymphocytes (%) (Auto) 4 % (24-48) Monocytes (%) (Auto) 9 % (0-9) Eosinophils (%) (Auto) 2 % (0-3) Basophils (%) (Auto) 0 % (0-3) Neutrophils # (Auto) 9.1 x10^3/uL (1.8-7.7) Lymphocytes # (Auto) 0.5 x10^3/uL (1.0-4.8) Monocytes # (Auto) 0.9 x10^3/uL (0.0-1.1) Eosinophils # (Auto) 0.2 x10^3/uL (0.0-0.7) Basophils # (Auto) 0.0 x10^3/uL (0.0-0.2) Sodium Level 144 mmol/L (136-145) Potassium Level 3.7 mmol/L (3.5-5.1) Chloride Level 109 mmol/L (98-107) Carbon Dioxide Level 29 mmol/L (21-32) Anion Gap 6 (6-14) Blood Urea Nitrogen 18 mg/dL (8-26) Creatinine 0.7 mg/dL (0.7-1.3) Estimated GFR (Cockcroft-Gault) 113.9 Glucose Level 156 mg/dL (70-99) Calcium Level 8.1 mg/dL (8.5-10.1) O2 Saturation 89 % (92-99) Arterial Blood pH 7.42 (7.35-7.45) Arterial Blood pCO2 at Patient Temp 43 mmHg (35-46) Arterial Blood pO2 at Patient Temp 57 mmHg (65-108) Arterial Blood HCO3 27 mmol/L (21-28) Arterial Blood Base Excess 3 mmol/L (-3-3) FiO2 90 Medications Active Scripts Medications Dose Route/Sig Max Daily Dose Days Date Category Icosapent Ethyl 1 Gm Capsule 2 Cap PO BID 09/20/20 Reported Metformin Hcl 1,000 Mg Tablet 1 Tab PO BID 09/20/20 Reported Rybelsus (Semaglutide) 7 Mg Tablet 1 Tab PO DAILY 09/20/20 Reported Farxiga (Dapagliflozin Propanediol) 10 Mg Tablet 1 Tab PO DAILY 09/20/20 Reported Trelegy Ellipta 100-62.5-25 (Fluticasone/Umeclidin/Vilanter) 1 Each Blst.w.dev 1 Puff INH DAILY 09/20/20 Reported Benzonatate 200 Mg Capsule 1 Cap PO TID PRN 09/20/20 Reported Montelukast Sodium 10 Mg Tablet 1 Tab PO DAILY 09/20/20 Reported Loratadine 10 Mg Tablet 1 Tab PO DAILY 09/20/20 Reported Fluticasone Propionate Nasal [place] (Fluticasone Propionate) 16 Gm [place].susp 1 Sprays NS BID 09/20/20 Reported Simvastatin 20 Mg Tablet 1 Tab PO QHS 11/20/15 Reported Comments Chest x-ray reviewed by me 09/26/2020. Bilateral infiltrates with mild improvement. Impression . 1. Acute hypoxic respiratory failure secondary to COVID-19 viral pneumonia/acute lung injury.---intubated 09/23/20 2. Abnormal chest x-ray consistent with mild infiltrates favoring COVID-19 viral pneumonia. 3. Leukopenia and thrombocytopenia due to COVID-19 viral pneumonia.--improved 4. No significant tobacco history. Plan . Updated 09/28/20 Continue current vent support 22/500/90%/PEEP 8. Oxygen requirement has increased from 70% to 90%. Follow CXR/ABG, changes as needed, will order chest x-ray today. S/P remdesivir. Continue dexamethasone will need full 10 day course , started on 09/23/20 Continue empiric antibiotic on zoysn Continue TF for nutritional support DVT/GI PPX:lovenox D/W RN and RT Updated 09/27/20 Continue current vent support 22/500/90%/PEEP 8 Follow CXR/ABG, changes as needed, S/P remdesivir. Continue dexamethasone will need full 10 day course , started on 09/23/20 Continue empiric antibiotic on zoysn Continue TF for nutritional support DVT/GI PPX:shar D/Mar RN and RT ERIC GOTTLIEB MD Sep 28, 2020 09:31
[2020-09-28] MEDS: PROPOFOL 100 ML IV PRN ×2 (09:55→14:02)
--- NOTE | 2020-09-28 13:36 | RAD ---
Exam performed: One view chest HISTORY: Increased oxygen demands. DATE OF SERVICE: 09/28/2020. COMPARISON: One view chest from 09/26/2020. Single AP upright portable view chest findings and impression: Endotracheal tube and Feeding tube are in similar position as previously. Heart size and mediastinal silhouette appears somewhat enlarged, however may be accentuated due to poor expiration. There are in creasing bilateral airspace opacities throughout both lungs suggesting worsening infiltrates. No pleu ral effusion or pneumothorax. Electronically signed by: Lawanda Harrison MD (09/28/2020 1:34 PM) [id number]
[2020-09-28] MEDS: IV NORMAL SALINE 1000ML BAG 1,000 ML IV SCH (15:02)
--- NOTE | 2020-09-28 16:00 | NUR ---
SS following up with discharge planning. SS reviewed pt chart and discussed with pt RN. Pt is currently on the vent at 90%. COVID19 positive. Pt on IV Zosyn and IV Decadron. Pt on Propofol, Fentanyl, and Versed. Tube feeds. Not stable. SS will continue to follow for discharge planning.
[2020-09-28] MEDS: SIMVASTATIN 20 MG TABLET PO SCH (20:37)
[2020-09-29] VITALS (24 sets, daily range): BP systolic 136–158; BP diastolic 60–75
[2020-09-29] MEDS: PIPERACILLIN/TAZOBACTAM 3.375 GM in IV NORMAL SALINE 50ML 50 ML IV SCH ×4 (00:04→18:21)
[2020-09-29] MEDS: INSULIN LISPRO 300 UNITS/3 ML VIAL. SQ SCH ×4 (00:10→18:26)
[2020-09-29] MEDS: PROPOFOL 100 ML IV PRN ×4 (00:14→19:18)
--- NOTE | 2020-09-29 05:45 | PDOC ---
PULMONARY PROGRESS NOTES DATE: 09/29/20 TIME: 05:44 Subjective Patient remains on vent support, FiO2 increased to 100% PEEP of 8 sedated on prop versed fentanyl Afebrile Vitals Vital Signs Date Time Temp Pulse Resp B/P (MAP) Pulse Ox O2 Delivery O2 Flow Rate FiO2 09/29/20 05:00 43 24 141/66 (91) 94 Ventilator 09/29/20 04:00 98.8 98.8 09/28/20 07:18 4.0 Comments Visual exam done due to COVID-19. intubated sedated RRR no accessory muscle use abd obese No skin rash, no leg edema Labs Laboratory Tests Test 09/27/20 07:51 09/27/20 12:08 09/27/20 17:33 09/27/20 22:18 O2 Saturation 92 % (92-99) Arterial Blood pH 7.45 (7.35-7.45) Arterial Blood pCO2 at Patient Temp 37 mmHg (35-46) Arterial Blood pO2 at Patient Temp 64 mmHg (65-108) Arterial Blood HCO3 26 mmol/L (21-28) Arterial Blood Base Excess 2 mmol/L (-3-3) FiO2 70 Glucose (Fingerstick) 160 mg/dL (70-99) 185 mg/dL (70-99) 185 mg/dL (70-99) Test 09/28/20 00:34 09/28/20 04:30 09/28/20 07:35 09/28/20 11:47 Glucose (Fingerstick) 186 mg/dL (70-99) 187 mg/dL (70-99) White Blood Count 10.7 x10^3/uL (4.0-11.0) Red Blood Count 4.73 x10^6/uL (4.30-5.70) Hemoglobin 13.9 g/dL (13.0-17.5) Hematocrit 41.2 % (39.0-53.0) Mean Corpuscular Volume 87 fL (79-100) Mean Corpuscular Hemoglobin 30 pg (25-35) Mean Corpuscular Hemoglobin Concent 34 g/dL (31-37) Red Cell Distribution Width 13.8 % (11.5-14.5) Platelet Count 294 x10^3/uL (140-400) Neutrophils (%) (Auto) 85 % (31-73) Lymphocytes (%) (Auto) 4 % (24-48) Monocytes (%) (Auto) 9 % (0-9) Eosinophils (%) (Auto) 2 % (0-3) Basophils (%) (Auto) 0 % (0-3) Neutrophils # (Auto) 9.1 x10^3/uL (1.8-7.7) Lymphocytes # (Auto) 0.5 x10^3/uL (1.0-4.8) Monocytes # (Auto) 0.9 x10^3/uL (0.0-1.1) Eosinophils # (Auto) 0.2 x10^3/uL (0.0-0.7) Basophils # (Auto) 0.0 x10^3/uL (0.0-0.2) Sodium Level 144 mmol/L (136-145) Potassium Level 3.7 mmol/L (3.5-5.1) Chloride Level 109 mmol/L (98-107) Carbon Dioxide Level 29 mmol/L (21-32) Anion Gap 6 (6-14) Blood Urea Nitrogen 18 mg/dL (8-26) Creatinine 0.7 mg/dL (0.7-1.3) Estimated GFR (Cockcroft-Gault) 113.9 Glucose Level 156 mg/dL (70-99) Calcium Level 8.1 mg/dL (8.5-10.1) O2 Saturation 89 % (92-99) Arterial Blood pH 7.42 (7.35-7.45) Arterial Blood pCO2 at Patient Temp 43 mmHg (35-46) Arterial Blood pO2 at Patient Temp 57 mmHg (65-108) Arterial Blood HCO3 27 mmol/L (21-28) Arterial Blood Base Excess 3 mmol/L (-3-3) FiO2 90 Test 09/28/20 17:55 09/28/20 23:38 Glucose (Fingerstick) 223 mg/dL (70-99) 211 mg/dL (70-99) Laboratory Tests Test 09/28/20 07:35 09/28/20 11:47 09/28/20 17:55 09/28/20 23:38 O2 Saturation 89 % (92-99) Arterial Blood pH 7.42 (7.35-7.45) Arterial Blood pCO2 at Patient Temp 43 mmHg (35-46) Arterial Blood pO2 at Patient Temp 57 mmHg (65-108) Arterial Blood HCO3 27 mmol/L (21-28) Arterial Blood Base Excess 3 mmol/L (-3-3) FiO2 90 Glucose (Fingerstick) 187 mg/dL (70-99) 223 mg/dL (70-99) 211 mg/dL (70-99) Medications Active Scripts Medications Dose Route/Sig Max Daily Dose Days Date Category Icosapent Ethyl 1 Gm Capsule 2 Cap PO BID 09/20/20 Reported Metformin Hcl 1,000 Mg Tablet 1 Tab PO BID 09/20/20 Reported Rybelsus (Semaglutide) 7 Mg Tablet 1 Tab PO DAILY 09/20/20 Reported Farxiga (Dapagliflozin Propanediol) 10 Mg Tablet 1 Tab PO DAILY 09/20/20 Reported Trelegy Ellipta 100-62.5-25 (Fluticasone/Umeclidin/Vilanter) 1 Each Blst.w.dev 1 Puff INH DAILY 09/20/20 Reported Benzonatate 200 Mg Capsule 1 Cap PO TID PRN 09/20/20 Reported Montelukast Sodium 10 Mg Tablet 1 Tab PO DAILY 09/20/20 Reported Loratadine 10 Mg Tablet 1 Tab PO DAILY 09/20/20 Reported Fluticasone Propionate Nasal [place] (Fluticasone Propionate) 16 Gm [place].susp 1 Sprays NS BID 09/20/20 Reported Simvastatin 20 Mg Tablet 1 Tab PO QHS 11/20/15 Reported Comments Chest x-ray reviewed 09/26/2020. Bilateral infiltrates with mild improvement. Impression . 1. Acute hypoxic respiratory failure secondary to COVID-19 viral pneumonia/acute lung injury.---intubated 09/23/20 2. Abnormal chest x-ray consistent with mild infiltrates favoring COVID-19 viral pneumonia. 3. Leukopenia and thrombocytopenia due to COVID-19 viral pneumonia.--improved 4. No significant tobacco history. Plan . Updated 09/29/20 Continue current vent support 22/500/100%/PEEP 8 titrate peep fio2 as tolerated may need to increase peep Follow CXR/ABG, changes as needed, S/P remdesivir. oxygenation worse increase dexamethasone to 20 for 5 days 10 for 5 days , started on 09/23/20 Continue empiric antibiotic on zoysn Continue TF for nutritional support DVT/GI PPX:lovenox D/W RN and RT Updated 09/27/20 Continue current vent support 22/500/70%/PEEP 8 Follow CXR/ABG, changes as needed, S/P remdesivir. Continue dexamethasone will need full 10 day course , started on 09/23/20 Continue empiric antibiotic on zoysn Continue TF for nutritional support DVT/GI PPX:lovenox D/W RN and RT ALISHA RUELAS MD Sep 29, 2020 05:45
[2020-09-29 05:57] LABS: CALCIUM 8.2 mg/dL (8.5-10.1); CREATININE 0.8 mg/dL (0.7-1.3); GFR 97.6; POTASSIUM 3.9 mmol/L (3.5-5.1)
[2020-09-29 06:00] LABS: BASO % 0 % (0-3); EOS # 0.1 x10^3/uL (0.0-0.7); EOS % 1 % (0-3); HEMATOCRIT 38.7 % (39.0-53.0); LYMPH # 0.5 x10^3/uL (1.0-4.8); LYMPH % 6 % (24-48); MEAN CORPUSCULAR HEMOGLOBIN 29 pg (25-35); MEAN CORPUSCULAR HGB CONC 34 g/dL (31-37); MEAN CORPUSCULAR VOLUME 88 fL (79-100); MONO # 0.8 x10^3/uL (0.0-1.1); MONO % 10 % (0-9); NEUT # 7.3 x10^3/uL (1.8-7.7); NEUT % 83 % (31-73); PLATELET COUNT 284 x10^3/uL (140-400); RED BLOOD COUNT 4.42 x10^6/uL (4.30-5.70); RED CELL DISTRIBUTION WIDTH 13.9 % (11.5-14.5); WHITE BLOOD COUNT 8.8 x10^3/uL (4.0-11.0)
[2020-09-29 08:11] LABS: BASE EXCESS ABG 3 mmol/L (-3-3); HCO3 ABG 27 mmol/L (21-28); PCO2 ABG 40 mmHg (35-46); PO2 ABG 95 mmHg (65-108); SAT O2 ABG 97 % (92-99)
[2020-09-29 08:36] LABS: FIO2 ABG 100
--- NOTE | 2020-09-29 09:05 | PDOC ---
[facility] PROGRESS NOTE Date of Service DOS: DATE: 09/29/20 TIME: 09:02 Chief Complaint Chief Complaint Acute COVID-19 pneumonia Acute hypoxic respiratory failure Sepsis History of diabetes mellitus type 2 History of hypertension History of dyslipidemia Admit to medicine for further management Pulmonology consult Continue IV thiamine and vitamin C IV 4 mg dexamethasone Daily Pending ferritin, LDH, CRP, D-dimer labs Titrate O2 supplementation to maintain O2 saturation greater than 92% Lovenox for DVT prophylaxis Protonix GI prophylaxis ADA diet Full code Discussed with RN and SW Disposition patient management as above Surrogate decision maker is the Jenni Morrissey History of Present Illness History of Present Illness 65-year-old white male presenting today due to worsening cough and shortness of breath; patient also experiencing vomiting and diarrhea. Patient was recently diagnosed with COVID-19 on September 11 and has been doing well since that until a few days ago when his symptoms acutely worsened this morning. Has not received Covid vaccine. Close contacts at home have very similar symptoms. History notable for hypertension, type 2 diabetes, hyperlipidemia, GERD. 09/21/2020 No acute events overnight. Patient saturating 98% on 10 L nasal cannula. If patient requires increasing O2 requirements may consider pulmonology consult for further management. Continue Covid treatment protocol. Currently on Remdesivir. Patient's chart, labs, images were reviewed and discussed with RN 09/22/2020 No acute events overnight. Patient saturating 91% on 10 L nasal cannula. Patient sitting over the side of bed and doing well and saying that he does have some shortness of breath with ambulation. Combivent inhaler ordered today. Patient's chart, labs, images were reviewed and discussed with RN 09/23/2020 No acute events overnight. Patient is requiring increasing O2 requirements. Saturating 88% on 15 L nonrebreather and also nasal cannula. Patient may require BiPAP. Discussed with pulmonary for possible ICU transfer. Patient's chart, labs, images were reviewed and discussed with RN 09/24/2020: Patient transferred to the ICU yesterday and intubated. Afebrile, currently breathing FiO2 100%, PEEP 10. Final dose of remdesivir today. Chest x- ray yesterday showed interval development of extensive bilateral airspace disease. We will continue treatment with steroids and IV antibiotics. Critical care time 30 minutes spent reviewing charts, reviewing labs, reviewing imaging, discussion with RN. 09/25/2020: Afebrile. On vent with FiO2 80%, PEEP 9. He has completed course of remdesivir. Continue IV steroids for total dose 10 days and IV Zosyn. Critical care time 30 minutes spent reviewing charts, reviewing labs, reviewing imaging, discussion with RN. 09/26/2020: Afebrile. Remains on vent with FiO2 70%, PEEP 8. Completed remdesivir. Continue prophylactic IV Zosyn. Continue IV steroids for total of 10 days (steroid course to end 09/30 with slow taper). Critical care time 30 minutes spent reviewing charts, reviewing labs, reviewing imaging, discussion w adelaide KEARNS. 09/27/2020: No acute events overnight. Afebrile. On vent with FiO2 70%, PEEP 8. Continue with IV antibiotics and steroids, with taper. Completed remdesivir. Critical care time 30 minutes spent reviewing charts, reviewing labs, reviewing imaging, discussion with RN. 09/28/2020: Afebrile. On vent with FiO2 90%, PEEP 8. Completed remdesivir. Continue IV antibiotics. Continue steroids to complete 10-day course 09/30/2020). KUB yesterday showed enteric tube tip projects over the body the stomach; bilateral parenchymal lung airspace opacities are seen. Critical care time 30 minutes spent reviewing charts, reviewing labs, reviewing imaging, discussion with RN. 09/29/2020: Afebrile. On vent with increased oxygen requirement, FiO2 100%, PEEP 8. Chest x-ray yesterday showed increasing bilateral airspace opacities throughout both lungs suggesting worsening infiltrates. Continue steroids to complete 10-day course (09/30/2020), and continue IV antibiotics. Critical care time 30 minutes spent reviewing charts, reviewing labs, reviewing imaging, discussion with RN. Vitals/I&O Vitals/I&O: Vital Signs Date Time Temp Pulse Resp B/P (MAP) Pulse Ox O2 Delivery O2 Flow Rate FiO2 09/29/20 07:53 93 Ventilator 09/29/20 07:20 44 24 140/64 (89) 09/29/20 04:00 98.8 98.8 09/28/20 07:18 4.0 I & O 09/28/20 09/28/20 09/29/20 15:00 23:00 07:00 Intake Total 350 ml 1884 ml 2221.5 ml Output Total 310 ml 210 ml 375 ml Balance 40 ml 1674 ml 1846.5 ml Physical Exam General: mild distress, Other (Intubated and sedated) Heart: Regular rate Abdomen: Normal bowel sounds Extremities: No clubbing Skin: No rashes, No significant lesion Labs Labs: Laboratory Tests Test 09/28/20 11:47 09/28/20 17:55 09/28/20 23:38 09/29/20 05:00 Glucose (Fingerstick) 187 mg/dL (70-99) 223 mg/dL (70-99) 211 mg/dL (70-99) White Blood Count 8.8 x10^3/uL (4.0-11.0) Red Blood Count 4.42 x10^6/uL (4.30-5.70) Hemoglobin 13.0 g/dL (13.0-17.5) Hematocrit 38.7 % (39.0-53.0) Mean Corpuscular Volume 88 fL (79-100) Mean Corpuscular Hemoglobin 29 pg (25-35) Mean Corpuscular Hemoglobin Concent 34 g/dL (31-37) Red Cell Distribution Width 13.9 % (11.5-14.5) Platelet Count 284 x10^3/uL (140-400) Neutrophils (%) (Auto) 83 % (31-73) Lymphocytes (%) (Auto) 6 % (24-48) Monocytes (%) (Auto) 10 % (0-9) Eosinophils (%) (Auto) 1 % (0-3) Basophils (%) (Auto) 0 % (0-3) Neutrophils # (Auto) 7.3 x10^3/uL (1.8-7.7) Lymphocytes # (Auto) 0.5 x10^3/uL (1.0-4.8) Monocytes # (Auto) 0.8 x10^3/uL (0.0-1.1) Eosinophils # (Auto) 0.1 x10^3/uL (0.0-0.7) Basophils # (Auto) 0.0 x10^3/uL (0.0-0.2) Sodium Level 141 mmol/L (136-145) Potassium Level 3.9 mmol/L (3.5-5.1) Chloride Level 107 mmol/L (98-107) Carbon Dioxide Level 28 mmol/L (21-32) Anion Gap 6 (6-14) Blood Urea Nitrogen 19 mg/dL (8-26) Creatinine 0.8 mg/dL (0.7-1.3) Estimated GFR (Cockcroft-Gault) 97.6 Glucose Level 206 mg/dL (70-99) Calcium Level 8.2 mg/dL (8.5-10.1) Triglycerides Level 192 mg/dL (0-150) Test 09/29/20 06:09 09/29/20 08:00 Glucose (Fingerstick) 197 mg/dL (70-99) O2 Saturation 97 % (92-99) Arterial Blood pH 7.45 (7.35-7.45) Arterial Blood pCO2 at Patient Temp 40 mmHg (35-46) Arterial Blood pO2 at Patient Temp 95 mmHg (65-108) Arterial Blood HCO3 27 mmol/L (21-28) Arterial Blood Base Excess 3 mmol/L (-3-3) FiO2 100 Assessment and Plan Assessmemt and Plan Problems Medical Problems: (1) Bilateral pulmonary infiltrates on CXR Status: Acute (2) Fever Status: Acute (3) Hypoxia Status: Acute (4) Lab test positive for detection of COVID-19 virus Status: Acute Comment Review of Relevant I have reviewed the following items lukasz (where applicable) has been applied. Medications: Current Medications Medications (Trade) Dose Ordered Sig/Khadar Route PRN Reason Start Time Stop Time Status Last Admin Dose Admin Sodium Chloride 1,000 ml @ 50 mls/hr Q20H IV 09/28/20 15:00 09/28/20 15:02 Justifications for Admission Other Justification FATOU LAMB MD Sep 29, 2020 09:05
[2020-09-29] MEDS: ZINC SULFATE 220 MG CAPSULE. PO SCH (09:48)
[2020-09-29] MEDS: ENOXAPARIN 40 MG/0.4 ML SYRINGE. SQ SCH ×2 (09:48→20:33)
[2020-09-29] MEDS: ASPIRIN CHEWABLE 81 MG TABLET. PO SCH (09:48)
[2020-09-29] MEDS: PANTOPRAZOLE IV PUSH 40 MG VIAL. IVP SCH (09:48)
[2020-09-29] MEDS: DEXAMETHASONE SOD PHOS 20 MG/5 ML VIAL. IVP SCH (09:49)
[2020-09-29] MEDS: ASCORBIC ACID 1,000 MG TABLET PO SCH ×3 (09:49→20:32)
[2020-09-29] MEDS: SENNOSIDES/DOCUSATE 8.6/50MG TABLET. PO SCH ×2 (09:49→20:32)
[2020-09-29] MEDS: MULTIVITAMINS,THERAPEUTIC 5 ML ORAL LIQUID. PEG SCH (09:49)
[2020-09-29] MEDS: INSULIN GLARGINE SYRINGE. SQ SCH ×2 (09:51→20:34)
[2020-09-29] MEDS: MIDAZOLAM 100mg/100ml NS BAG 100 ML IV PRN (12:21)
[2020-09-29] MEDS: IV NORMAL SALINE 1000ML BAG 1,000 ML IV SCH (12:22)
[2020-09-29] MEDS: SIMVASTATIN 20 MG TABLET PO SCH (20:32)
[2020-09-29] MEDS: fentaNYL HIGH DOSE PCA 55 ML IV PRN (21:58)
[2020-09-30] VITALS (21 sets, daily range): BP systolic 133–173; BP diastolic 42–74
[2020-09-30] MEDS: PROPOFOL 100 ML IV PRN (00:53)
--- NOTE | 2020-09-30 05:07 | PDOC ---
PULMONARY PROGRESS NOTES DATE: 09/30/20 TIME: 05:07 Subjective Patient remains on vent support, FiO2 decreased to 90% PEEP of 8 sedated on prop versed fentanyl small ett secretion Afebrile Vitals Vital Signs Date Time Temp Pulse Resp B/P (MAP) Pulse Ox O2 Delivery O2 Flow Rate FiO2 09/30/20 03:07 97 Ventilator 09/30/20 03:00 36 22 173/73 (106) 09/30/20 00:00 98.7 98.7 09/29/20 14:57 4.0 Comments Visual exam done due to COVID-19. intubated sedated RRR no accessory muscle use abd obese No skin rash, no leg edema Labs Laboratory Tests Test 09/28/20 07:35 09/28/20 11:47 09/28/20 17:55 09/28/20 23:38 O2 Saturation 89 % (92-99) Arterial Blood pH 7.42 (7.35-7.45) Arterial Blood pCO2 at Patient Temp 43 mmHg (35-46) Arterial Blood pO2 at Patient Temp 57 mmHg (65-108) Arterial Blood HCO3 27 mmol/L (21-28) Arterial Blood Base Excess 3 mmol/L (-3-3) FiO2 90 Glucose (Fingerstick) 187 mg/dL (70-99) 223 mg/dL (70-99) 211 mg/dL (70-99) Test 09/29/20 05:00 09/29/20 06:09 09/29/20 08:00 09/29/20 11:58 White Blood Count 8.8 x10^3/uL (4.0-11.0) Red Blood Count 4.42 x10^6/uL (4.30-5.70) Hemoglobin 13.0 g/dL (13.0-17.5) Hematocrit 38.7 % (39.0-53.0) Mean Corpuscular Volume 88 fL (79-100) Mean Corpuscular Hemoglobin 29 pg (25-35) Mean Corpuscular Hemoglobin Concent 34 g/dL (31-37) Red Cell Distribution Width 13.9 % (11.5-14.5) Platelet Count 284 x10^3/uL (140-400) Neutrophils (%) (Auto) 83 % (31-73) Lymphocytes (%) (Auto) 6 % (24-48) Monocytes (%) (Auto) 10 % (0-9) Eosinophils (%) (Auto) 1 % (0-3) Basophils (%) (Auto) 0 % (0-3) Neutrophils # (Auto) 7.3 x10^3/uL (1.8-7.7) Lymphocytes # (Auto) 0.5 x10^3/uL (1.0-4.8) Monocytes # (Auto) 0.8 x10^3/uL (0.0-1.1) Eosinophils # (Auto) 0.1 x10^3/uL (0.0-0.7) Basophils # (Auto) 0.0 x10^3/uL (0.0-0.2) Sodium Level 141 mmol/L (136-145) Potassium Level 3.9 mmol/L (3.5-5.1) Chloride Level 107 mmol/L (98-107) Carbon Dioxide Level 28 mmol/L (21-32) Anion Gap 6 (6-14) Blood Urea Nitrogen 19 mg/dL (8-26) Creatinine 0.8 mg/dL (0.7-1.3) Estimated GFR (Cockcroft-Gault) 97.6 Glucose Level 206 mg/dL (70-99) Calcium Level 8.2 mg/dL (8.5-10.1) Triglycerides Level 192 mg/dL (0-150) Glucose (Fingerstick) 197 mg/dL (70-99) 176 mg/dL (70-99) O2 Saturation 97 % (92-99) Arterial Blood pH 7.45 (7.35-7.45) Arterial Blood pCO2 at Patient Temp 40 mmHg (35-46) Arterial Blood pO2 at Patient Temp 95 mmHg (65-108) Arterial Blood HCO3 27 mmol/L (21-28) Arterial Blood Base Excess 3 mmol/L (-3-3) FiO2 100 Test 09/29/20 18:25 09/29/20 23:42 Glucose (Fingerstick) 262 mg/dL (70-99) 237 mg/dL (70-99) Laboratory Tests Test 09/29/20 06:09 09/29/20 08:00 09/29/20 11:58 09/29/20 18:25 Glucose (Fingerstick) 197 mg/dL (70-99) 176 mg/dL (70-99) 262 mg/dL (70-99) O2 Saturation 97 % (92-99) Arterial Blood pH 7.45 (7.35-7.45) Arterial Blood pCO2 at Patient Temp 40 mmHg (35-46) Arterial Blood pO2 at Patient Temp 95 mmHg (65-108) Arterial Blood HCO3 27 mmol/L (21-28) Arterial Blood Base Excess 3 mmol/L (-3-3) FiO2 100 Test 09/29/20 23:42 Glucose (Fingerstick) 237 mg/dL (70-99) Medications Active Scripts Medications Dose Route/Sig Max Daily Dose Days Date Category Icosapent Ethyl 1 Gm Capsule 2 Cap PO BID 09/20/20 Reported Metformin Hcl 1,000 Mg Tablet 1 Tab PO BID 09/20/20 Reported Rybelsus (Semaglutide) 7 Mg Tablet 1 Tab PO DAILY 09/20/20 Reported Farxiga (Dapagliflozin Propanediol) 10 Mg Tablet 1 Tab PO DAILY 09/20/20 Reported Trelegy Ellipta 100-62.5-25 (Fluticasone/Umeclidin/Vilanter) 1 Each Blst.w.dev 1 Puff INH DAILY 09/20/20 Reported Benzonatate 200 Mg Capsule 1 Cap PO TID PRN 09/20/20 Reported Montelukast Sodium 10 Mg Tablet 1 Tab PO DAILY 09/20/20 Reported Loratadine 10 Mg Tablet 1 Tab PO DAILY 09/20/20 Reported Fluticasone Propionate Nasal [place] (Fluticasone Propionate) 16 Gm [place].susp 1 Sprays NS BID 09/20/20 Reported Simvastatin 20 Mg Tablet 1 Tab PO QHS 11/20/15 Reported Comments cxr reviewed 09/28/20 Endotracheal tube and Feeding tube are in similar position as previously. Heart size and mediastinal silhouette appears somewhat enlarged, however may be accentuated due to poor expiration. There are increasing bilateral airspace opacities throughout both lungs suggesting worsening infiltrates. No pleural effusion or pneumothorax. Chest x-ray reviewed 09/26/2020. Bilateral infiltrates with mild improvement. Impression . 1. Acute hypoxic respiratory failure secondary to COVID-19 viral pneumonia/acute lung injury.---intubated 09/23/20 2. Abnormal chest x-ray consistent with mild infiltrates favoring COVID-19 viral pneumonia. 3. Leukopenia and thrombocytopenia due to COVID-19 viral pneumonia.--improved 4. No significant tobacco history. Plan . Updated 09/30/20 Continue current vent support 22/500/100%/PEEP 8 titrate peep fio2 as tolerated may need to increase peep I>>>O lasix 20 mg iv now Follow CXR/ABG, changes as needed, cxr 09/28, reviewed worse S/P remdesivir. oxygenation worse increase dexamethasone to 20 for 5 days 10 for 5 days , started on 09/23/20 Continue empiric antibiotic on zoysn Continue TF for nutritional support DVT/GI PPX:lovenox D/W RN and RT Updated 09/29/20 Continue current vent support 22/500/100%/PEEP 8 titrate peep fio2 as tolerated may need to increase peep Follow CXR/ABG, changes as needed, S/P remdesivir. oxygenation worse increase dexamethasone to 20 for 5 days 10 for 5 days , started on 09/23/20 Continue empiric antibiotic on zoysn Continue TF for nutritional support DVT/GI PPX:lovenox D/W RN and RT Updated 09/27/20 Continue current vent support 22/500/70%/PEEP 8 Follow CXR/ABG, changes as needed, S/P remdesivir. Continue dexamethasone will need full 10 day course , started on 09/23/20 Continue empiric antibiotic on zoysn Continue TF for nutritional support DVT/GI PPX:lovenox D/W RN and RT ALISHA RUELAS MD Sep 30, 2020 05:07
[2020-09-30] MEDS: PIPERACILLIN/TAZOBACTAM 3.375 GM in IV NORMAL SALINE 50ML 50 ML IV SCH ×4 (05:50→17:09)
[2020-09-30] MEDS: INSULIN LISPRO 300 UNITS/3 ML VIAL. SQ SCH ×4 (05:51→17:12)
[2020-09-30] MEDS: MULTIVITAMINS,THERAPEUTIC 5 ML ORAL LIQUID. PEG SCH (07:48)
[2020-09-30] MEDS: ASPIRIN CHEWABLE 81 MG TABLET. PO SCH (07:48)
[2020-09-30] MEDS: PANTOPRAZOLE IV PUSH 40 MG VIAL. IVP SCH (07:48)
[2020-09-30] MEDS: DEXAMETHASONE SOD PHOS 20 MG/5 ML VIAL. IVP SCH (07:48)
[2020-09-30] MEDS: SENNOSIDES/DOCUSATE 8.6/50MG TABLET. PO SCH ×2 (07:49→20:08)
[2020-09-30] MEDS: ZINC SULFATE 220 MG CAPSULE. PO SCH (07:49)
[2020-09-30] MEDS: ASCORBIC ACID 1,000 MG TABLET PO SCH ×3 (07:49→20:37)
[2020-09-30] MEDS: ENOXAPARIN 40 MG/0.4 ML SYRINGE. SQ SCH ×2 (07:49→20:38)
[2020-09-30] MEDS: MIDAZOLAM 100mg/100ml NS BAG 100 ML IV PRN (07:51)
--- NOTE | 2020-09-30 08:01 | PDOC ---
[facility] PROGRESS NOTE Date of Service DOS: DATE: 09/30/20 TIME: 07:41 Chief Complaint Chief Complaint Acute COVID-19 pneumonia Acute hypoxic respiratory failure Sepsis History of diabetes mellitus type 2 History of hypertension History of dyslipidemia Admit to medicine for further management Pulmonology consult Continue IV thiamine and vitamin C IV 4 mg dexamethasone Daily Pending ferritin, LDH, CRP, D-dimer labs Titrate O2 supplementation to maintain O2 saturation greater than 92% Lovenox for DVT prophylaxis Protonix GI prophylaxis ADA diet Full code Discussed with RN and SW Disposition patient management as above Surrogate decision maker is the Jenni Morrissey History of Present Illness History of Present Illness 65-year-old white male presenting today due to worsening cough and shortness of breath; patient also experiencing vomiting and diarrhea. Patient was recently diagnosed with COVID-19 on September 11 and has been doing well since that until a few days ago when his symptoms acutely worsened this morning. Has not received Covid vaccine. Close contacts at home have very similar symptoms. History notable for hypertension, type 2 diabetes, hyperlipidemia, GERD. 09/21/2020 No acute events overnight. Patient saturating 98% on 10 L nasal cannula. If patient requires increasing O2 requirements may consider pulmonology consult for further management. Continue Covid treatment protocol. Currently on Remdesivir. Patient's chart, labs, images were reviewed and discussed with RN 09/22/2020 No acute events overnight. Patient saturating 91% on 10 L nasal cannula. Patient sitting over the side of bed and doing well and saying that he does have some shortness of breath with ambulation. Combivent inhaler ordered today. Patient's chart, labs, images were reviewed and discussed with RN 09/23/2020 No acute events overnight. Patient is requiring increasing O2 requirements. Saturating 88% on 15 L nonrebreather and also nasal cannula. Patient may require BiPAP. Discussed with pulmonary for possible ICU transfer. Patient's chart, labs, images were reviewed and discussed with RN 09/24/2020: Patient transferred to the ICU yesterday and intubated. Afebrile, currently breathing FiO2 100%, PEEP 10. Final dose of remdesivir today. Chest x- ray yesterday showed interval development of extensive bilateral airspace disease. We will continue treatment with steroids and IV antibiotics. Critical care time 30 minutes spent reviewing charts, reviewing labs, reviewing imaging, discussion with RN. 09/25/2020: Afebrile. On vent with FiO2 80%, PEEP 9. He has completed course of remdesivir. Continue IV steroids for total dose 10 days and IV Zosyn. Critical care time 30 minutes spent reviewing charts, reviewing labs, reviewing imaging, discussion with RN. 09/26/2020: Afebrile. Remains on vent with FiO2 70%, PEEP 8. Completed remdesivir. Continue prophylactic IV Zosyn. Continue IV steroids for total of 10 days (steroid course to end 09/30 with slow taper). Critical care time 30 minutes spent reviewing charts, reviewing labs, reviewing imaging, discussion w adelaide KEARNS. 09/27/2020: No acute events overnight. Afebrile. On vent with FiO2 70%, PEEP 8. Continue with IV antibiotics and steroids, with taper. Completed remdesivir. Critical care time 30 minutes spent reviewing charts, reviewing labs, reviewing imaging, discussion with RN. 09/28/2020: Afebrile. On vent with FiO2 90%, PEEP 8. Completed remdesivir. Continue IV antibiotics. Continue steroids to complete 10-day course (09/30/2020). KUB yesterday showed enteric tube tip projects over the body the stomach; bilateral parenchymal lung airspace opacities are seen. Critical care time 30 minutes spent reviewing charts, reviewing labs, reviewing imaging, discussion with RN. 09/29/2020: Afebrile. On vent with increased oxygen requirement, FiO2 100%, PEEP 8. Chest x-ray yesterday showed increasing bilateral airspace opacities throughout both lungs suggesting worsening infiltrates. Continue steroids to complete 10-day course (09/30/2020), and continue IV antibiotics. Critical care time 30 minutes spent reviewing charts, reviewing labs, reviewing imaging, discussion with RN. 09/30/2020: On vent with FiO2 90%, PEEP 8. Afebrile. Steroids have been increased to dexamethasone 20 mg for 5 days, 10 mg for 5 days (started 09/29 to be completed 10/09). Continue IV antibiotics. Critical care time 30 minutes spent reviewing charts, reviewing labs, reviewing imaging, discussion with RN. Vitals/I&O Vitals/I&O: Vital Signs Date Time Temp Pulse Resp B/P (MAP) Pulse Ox O2 Delivery O2 Flow Rate FiO2 09/30/20 06:00 46 25 157/72 (100) 99 Ventilator 09/30/20 04:00 98.1 98.1 09/29/20 14:57 4.0 I & O 09/29/20 09/29/20 09/30/20 15:00 23:00 07:00 Intake Total 400 ml 2291.7 ml 1934.7 ml Output Total 480 ml 410 ml 600 ml Balance -80 ml 1881.7 ml 1334.7 ml Physical Exam General: mild distress, Other (Intubated and sedated) Heart: Regular rate Abdomen: Normal bowel sounds Extremities: No clubbing Skin: No rashes, No significant lesion Labs Labs: Laboratory Tests Test 09/29/20 08:00 09/29/20 11:58 09/29/20 18:25 09/29/20 23:42 O2 Saturation 97 % (92-99) Arterial Blood pH 7.45 (7.35-7.45) Arterial Blood pCO2 at Patient Temp 40 mmHg (35-46) Arterial Blood pO2 at Patient Temp 95 mmHg (65-108) Arterial Blood HCO3 27 mmol/L (21-28) Arterial Blood Base Excess 3 mmol/L (-3-3) FiO2 100 Glucose (Fingerstick) 176 mg/dL (70-99) 262 mg/dL (70-99) 237 mg/dL (70-99) Test 09/30/20 05:27 Glucose (Fingerstick) 241 mg/dL (70-99) Assessment and Plan Assessmemt and Plan Problems Medical Problems: (1) Bilateral pulmonary infiltrates on CXR Status: Acute (2) Fever Status: Acute (3) Hypoxia Status: Acute (4) Lab test positive for detection of COVID-19 virus Status: Acute Comment Review of Relevant I have reviewed the following items lukasz (where applicable) has been applied. Medications: Current Medications Medications (Trade) Dose Ordered Sig/Khadar Route PRN Reason Start Time Stop Time Status Last Admin Dose Admin Dexamethasone Sodium Phosphate (Decadron) 20 mg DAILY IVP 09/29/20 09:00 09/29/20 09:49 Multivitamins/ Minerals Therapeutic (Centrum Multivit-Mineral Liq) 5 ml DAILY PEG 09/29/20 09:00 09/29/20 09:49 Fentanyl Citrate 55 ml @ 1.5 mls/hr CONT PRN IV SEE I/O 09/29/20 21:15 09/29/20 21:58 Justifications for Admission Other Justification FATOU LAMB MD Sep 30, 2020 08:01
[2020-09-30 08:21] LABS: BASE EXCESS ABG 2 mmol/L (-3-3); HCO3 ABG 27 mmol/L (21-28); PCO2 ABG 42 mmHg (35-46); PO2 ABG 104 mmHg (65-108); SAT O2 ABG 97 % (92-99)
[2020-09-30 08:47] LABS: FIO2 ABG 90
[2020-09-30] MEDS: INSULIN GLARGINE SYRINGE. SQ SCH ×2 (09:00→20:38)
[2020-09-30] MEDS ORDERED: FUROSEMIDE 20 MG/2 ML VIAL. IVP ONE (11:00)
[2020-09-30] MEDS: IV NORMAL SALINE 1000ML BAG 1,000 ML IV SCH (11:52)
--- NOTE | 2020-09-30 18:23 | NUR ---
call and would like his belongings. Son will be by to meat pickler. 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 Jewlery 2 yellow colored rings and 2 yellow colored necklaces placed in a speciman cup, There was another plastic bag with a bible, books. Jcarlos was here at 1830 and picked up those items.
[2020-09-30] MEDS: SIMVASTATIN 20 MG TABLET PO SCH (20:37)
[2020-10-01] VITALS (24 sets, daily range): BP systolic 121–188; BP diastolic 55–88
[2020-10-01] MEDS: PIPERACILLIN/TAZOBACTAM 3.375 GM in IV NORMAL SALINE 50ML 50 ML IV SCH ×2 (00:03→06:00)
[2020-10-01] MEDS: INSULIN LISPRO 300 UNITS/3 ML VIAL. SQ SCH ×4 (00:06→18:09)
[2020-10-01] MEDS: fentaNYL HIGH DOSE PCA 55 ML IV PRN (03:30)
[2020-10-01] MEDS: MIDAZOLAM 100mg/100ml NS BAG 100 ML IV PRN ×2 (06:29→16:38)
--- NOTE | 2020-10-01 07:02 | PDOC ---
PULMONARY PROGRESS NOTES DATE: 10/01/20 TIME: 07:00 Subjective Patient remains on vent support at 80% and a PEEP of 8 Afebrile No overnight concerns from nursing Vitals Vital Signs Date Time Temp Pulse Resp B/P (MAP) Pulse Ox O2 Delivery O2 Flow Rate FiO2 10/01/20 06:00 62 26 160/72 (101) 100 Ventilator 10/01/20 04:00 98.7 98.7 Comments Visual exam done due to COVID-19. intubated sedated RRR no accessory muscle use abd obese No skin rash, no leg edema Labs Laboratory Tests Test 09/29/20 08:00 09/29/20 11:58 09/29/20 18:25 09/29/20 23:42 O2 Saturation 97 % (92-99) Arterial Blood pH 7.45 (7.35-7.45) Arterial Blood pCO2 at Patient Temp 40 mmHg (35-46) Arterial Blood pO2 at Patient Temp 95 mmHg (65-108) Arterial Blood HCO3 27 mmol/L (21-28) Arterial Blood Base Excess 3 mmol/L (-3-3) FiO2 100 Glucose (Fingerstick) 176 mg/dL (70-99) 262 mg/dL (70-99) 237 mg/dL (70-99) Test 09/30/20 05:27 09/30/20 08:15 09/30/20 11:57 09/30/20 16:50 Glucose (Fingerstick) 241 mg/dL (70-99) 253 mg/dL (70-99) 283 mg/dL (70-99) O2 Saturation 97 % (92-99) Arterial Blood pH 7.43 (7.35-7.45) Arterial Blood pCO2 at Patient Temp 42 mmHg (35-46) Arterial Blood pO2 at Patient Temp 104 mmHg (65-108) Arterial Blood HCO3 27 mmol/L (21-28) Arterial Blood Base Excess 2 mmol/L (-3-3) FiO2 90 Test 09/30/20 23:42 Glucose (Fingerstick) 229 mg/dL (70-99) Laboratory Tests Test 09/30/20 08:15 09/30/20 11:57 09/30/20 16:50 09/30/20 23:42 O2 Saturation 97 % (92-99) Arterial Blood pH 7.43 (7.35-7.45) Arterial Blood pCO2 at Patient Temp 42 mmHg (35-46) Arterial Blood pO2 at Patient Temp 104 mmHg (65-108) Arterial Blood HCO3 27 mmol/L (21-28) Arterial Blood Base Excess 2 mmol/L (-3-3) FiO2 90 Glucose (Fingerstick) 253 mg/dL (70-99) 283 mg/dL (70-99) 229 mg/dL (70-99) Medications Active Scripts Medications Dose Route/Sig Max Daily Dose Days Date Category Icosapent Ethyl 1 Gm Capsule 2 Cap PO BID 09/20/20 Reported Metformin Hcl 1,000 Mg Tablet 1 Tab PO BID 09/20/20 Reported Rybelsus (Semaglutide) 7 Mg Tablet 1 Tab PO DAILY 09/20/20 Reported Farxiga (Dapagliflozin Propanediol) 10 Mg Tablet 1 Tab PO DAILY 09/20/20 Reported Trelegy Ellipta 100-62.5-25 (Fluticasone/Umeclidin/Vilanter) 1 Each Blst.w.dev 1 Puff INH DAILY 09/20/20 Reported Benzonatate 200 Mg Capsule 1 Cap PO TID PRN 09/20/20 Reported Montelukast Sodium 10 Mg Tablet 1 Tab PO DAILY 09/20/20 Reported Loratadine 10 Mg Tablet 1 Tab PO DAILY 09/20/20 Reported Fluticasone Propionate Nasal [place] (Fluticasone Propionate) 16 Gm [place].susp 1 Sprays NS BID 09/20/20 Reported Simvastatin 20 Mg Tablet 1 Tab PO QHS 11/20/15 Reported Comments Chest x-ray reviewed 10/01/2020. Bilateral faint diffuse interstitial infiltrates with mild improvement. Endotracheal tube higher. Will advance cxr reviewed 09/28/20 Endotracheal tube and Feeding tube are in similar position as previously. Heart size and mediastinal silhouette appears somewhat enlarged, however may be accentuated due to poor expiration. There are increasing bilateral airspace opacities throughout both lungs suggesting worsening infiltrates. No pleural effusion or pneumothorax. Chest x-ray reviewed 09/26/2020. Bilateral infiltrates with mild improvement. Impression . 1. Acute hypoxic respiratory failure secondary to COVID-19 viral pneumonia/acute lung injury.---intubated 09/23/20 2. Abnormal chest x-ray consistent with mild infiltrates favoring COVID-19 viral pneumonia. 3. Leukopenia and thrombocytopenia due to COVID-19 viral pneumonia.--improved 4. No significant tobacco history. Plan . Updated 10/01/2020 Continue current ventilatory support 22/500/80/8, wean as tolerated Follow chest x-ray/ABG, make changes as needed Status post remdesivir Wean steroids DC antibiotics as patient has completed a full course Zosyn was started 09/20/2020 Hyperglycemia and hypertension per PCP Continue tube feeding for nutritional support DVT/GI prophylaxis: Lovenox Discussed with RN and RT Advanced endotracheal tube by 2 cm. Critical care time 30 minutes Updated 09/30/20 Continue current vent support 22/500/100%/PEEP 8 titrate peep fio2 as tolerated may need to increase peep I>>>O lasix 20 mg iv now Follow CXR/ABG, changes as needed, cxr 09/28, reviewed worse S/P remdesivir. oxygenation worse increase dexamethasone to 20 for 5 days 10 for 5 days , started on 09/23/20 Continue empiric antibiotic on zoysn Continue TF for nutritional support DVT/GI PPX:lovenox D/W RN and RT ERIC GOTTLIEB MD Oct 01, 2020 07:02
[2020-10-01] MEDS: ASPIRIN CHEWABLE 81 MG TABLET. PO SCH (08:01)
[2020-10-01] MEDS: IV NORMAL SALINE 1000ML BAG 1,000 ML IV SCH ×2 (08:01→23:00)
[2020-10-01] MEDS: DEXAMETHASONE SOD PHOS 20 MG/5 ML VIAL. IVP SCH (08:02)
[2020-10-01] MEDS: ZINC SULFATE 220 MG CAPSULE. PO SCH (08:02)
[2020-10-01] MEDS: PANTOPRAZOLE IV PUSH 40 MG VIAL. IVP SCH (08:02)
[2020-10-01] MEDS: ENOXAPARIN 40 MG/0.4 ML SYRINGE. SQ SCH ×2 (08:03→20:45)
[2020-10-01] MEDS: MULTIVITAMINS,THERAPEUTIC 5 ML ORAL LIQUID. PEG SCH (08:03)
[2020-10-01] MEDS: ASCORBIC ACID 1,000 MG TABLET PO SCH ×3 (08:03→20:45)
[2020-10-01] MEDS: PROPOFOL 100 ML IV PRN ×2 (08:04→23:16)
[2020-10-01 08:09] LABS: BASE EXCESS ABG 5 mmol/L (-3-3); HCO3 ABG 30 mmol/L (21-28); PCO2 ABG 47 mmHg (35-46); PO2 ABG 119 mmHg (65-108); SAT O2 ABG 98 % (92-99)
[2020-10-01 08:11] LABS: FIO2 ABG 80
[2020-10-01] MEDS: SENNOSIDES/DOCUSATE 8.6/50MG TABLET. PO SCH ×2 (08:34→20:46)
[2020-10-01] MEDS: INSULIN GLARGINE SYRINGE. SQ SCH ×2 (08:34→20:46)
--- NOTE | 2020-10-01 08:37 | RAD ---
XR CHEST 1V 10/01/2020 Reason: RF Comparison: 09/28/2020 Technique: AP portable semiupright radiograph of the chest Findings: Endotracheal tube projects at the thoracic inlet. Nasogastric tube courses below the level of the lyndsay phragm. There are median sternotomy wires which are intact. Improved aeration of bilateral lungs with persistent patchy and reticular opacity. No large pleural effusion. No pneumothorax. The cardiomedia stinal silhouette is enlarged, stable. Pulmonary vasculature is indistinct. Impression: 1. Similar position of endotracheal tube with the tip near the thoracic inlet, consider advancement. 2. Improved aeration of bilateral lungs with persistent airspace and interstitial disease. Electronically signed by: Fidencio Mack (10/01/2020 8:35 AM) [id number]
--- NOTE | 2020-10-01 12:37 | PDOC ---
[facility] [facility] PROGRESS NOTE Date of Service DOS: DATE: 10/01/20 TIME: 12:34 Chief Complaint Chief Complaint Acute COVID-19 pneumonia Acute hypoxic respiratory failure Sepsis History of diabetes mellitus type 2 History of hypertension History of dyslipidemia Increase insulin regimen to 25 units twice daily Pulmonology consult Continue IV thiamine and vitamin C IV 4 mg dexamethasone Daily Pending ferritin, LDH, CRP, D-dimer labs Titrate O2 supplementation to maintain O2 saturation greater than 92% Lovenox for DVT prophylaxis Protonix GI prophylaxis ADA diet Full code Discussed with RN and SW Disposition patient management as above Surrogate decision maker is the Jenni Morrissey History of Present Illness History of Present Illness 65-year-old white male presenting today due to worsening cough and shortness of breath; patient also experiencing vomiting and diarrhea. Patient was recently diagnosed with COVID-19 on September 11 and has been doing well since that until a few days ago when his symptoms acutely worsened this morning. Has not received Covid vaccine. Close contacts at home have very similar symptoms. History notable for hypertension, type 2 diabetes, hyperlipidemia, GERD. 09/21/2020 No acute events overnight. Patient saturating 98% on 10 L nasal cannula. If patient requires increasing O2 requirements may consider pulmonology consult for further management. Continue Covid treatment protocol. Currently on Remdesivir. Patient's chart, labs, images were reviewed and discussed with RN 09/22/2020 No acute events overnight. Patient saturating 91% on 10 L nasal cannula. Patient sitting over the side of bed and doing well and saying that he does have some shortness of breath with ambulation. Combivent inhaler ordered today. Patient's chart, labs, images were reviewed and discussed with RN 09/23/2020 No acute events overnight. Patient is requiring increasing O2 requirements. Saturating 88% on 15 L nonrebreather and also nasal cannula. Patient may require BiPAP. Discussed with pulmonary for possible ICU transfer. Patient's chart, labs, images were reviewed and discussed with RN 09/24/2020: Patient transferred to the ICU yesterday and intubated. Afebrile, currently breathing FiO2 100%, PEEP 10. Final dose of remdesivir today. Chest x- ray yesterday showed interval development of extensive bilateral airspace disease. We will continue treatment with steroids and IV antibiotics. Critical care time 30 minutes spent reviewing charts, reviewing labs, reviewing imaging, discussion with RN. 09/25/2020: Afebrile. On vent with FiO2 80%, PEEP 9. He has completed course of remdesivir. Continue IV steroids for total dose 10 days and IV Zosyn. Critical care time 30 minutes spent reviewing charts, reviewing labs, reviewing imaging, discussion with RN. 09/26/2020: Afebrile. Remains on vent with FiO2 70%, PEEP 8. Completed remdesivir. Continue prophylactic IV Zosyn. Continue IV steroids for total of 10 days (steroid course to end 09/30 with slow taper). Critical care time 30 minutes spent reviewing charts, reviewing labs, reviewing imaging, discussion with RN. 09/27/2020: No acute events overnight. Afebrile. On vent with FiO2 70%, PEEP 8. Continue with IV antibiotics and steroids, with taper. Completed remdesivir. Critical care time 30 minutes spent reviewing charts, reviewing labs, reviewing imaging, discussion with RN. 09/28/2020: Afebrile. On vent with FiO2 90%, PEEP 8. Completed remdesivir. Continue IV antibiotics. Continue steroids to complete 10-day course (09/30/2020). KUB yesterday showed enteric tube tip projects over the body the stomach; bilateral parenchymal lung airspace opacities are seen. Critical care time 30 minutes spent reviewing charts, reviewing labs, reviewing imaging, discussion with RN. 09/29/2020: Afebrile. On vent with increased oxygen requirement, FiO2 100%, PEEP 8. Chest x-ray yesterday showed increasing bilateral airspace opacities throughout both lungs suggesting worsening infiltrates. Continue steroids to complete 10-day course (09/30/2020), and continue IV antibiotics. Critical care time 30 minutes spent reviewing charts, reviewing labs, reviewing imaging, discussion with RN. 09/30/2020: On vent with FiO2 90%, PEEP 8. Afebrile. Steroids have been increased to dexamethasone 20 mg for 5 days, 10 mg for 5 days (started 09/29 to be completed 10/09). Continue IV antibiotics. Critical care time 30 minutes spent reviewing charts, reviewing labs, reviewing imaging, discussion with RN. 10/01/2020 No acute events overnight. Patient saturating 97% on vent settings of 22/500/80/8. Currently sedated and intubated. Patient's chart, labs, images were reviewed and discussed with RN A total of 35 minutes of critical care time was spent in reviewing chart, labs, and images. Discussed with RN and SW. Vitals/I&O Vitals/I&O: Vital Signs Date Time Temp Pulse Resp B/P (MAP) Pulse Ox O2 Delivery O2 Flow Rate FiO2 10/01/20 12:00 Mechanical Ventilator 10/01/20 11:24 97 10/01/20 06:00 62 26 160/72 (101) 10/01/20 04:00 98.7 98.7 I & O 09/30/20 09/30/20 10/01/20 15:00 23:00 07:00 Intake Total 400 ml 1916 ml 1405 ml Output Total 530 ml 2135 ml 665 ml Balance -130 ml -219 ml 740 ml Physical Exam General: mild distress, Other (Intubated and sedated) Heart: Regular rate Abdomen: Normal bowel sounds Extremities: No clubbing Skin: No rashes, No significant lesion Labs Labs: Laboratory Tests Test 09/30/20 16:50 09/30/20 23:42 10/01/20 07:35 10/01/20 11:49 Glucose (Fingerstick) 283 mg/dL (70-99) 229 mg/dL (70-99) 187 mg/dL (70-99) O2 Saturation 98 % (92-99) Arterial Blood pH 7.42 (7.35-7.45) Arterial Blood pCO2 at Patient Temp 47 mmHg (35-46) Arterial Blood pO2 at Patient Temp 119 mmHg (65-108) Arterial Blood HCO3 30 mmol/L (21-28) Arterial Blood Base Excess 5 mmol/L (-3-3) FiO2 80 Assessment and Plan Assessmemt and Plan Problems Medical Problems: (1) Bilateral pulmonary infiltrates on CXR Status: Acute (2) Fever Status: Acute (3) Hypoxia Status: Acute (4) Lab test positive for detection of COVID-19 virus Status: Acute Comment Review of Relevant I have reviewed the following items lukasz (where applicable) has been applied. Medications: Current Medications Medications (Trade) Dose Ordered Sig/Khadar Route PRN Reason Start Time Stop Time Status Last Admin Dose Admin Dexamethasone Sodium Phosphate (Decadron) 10 mg DAILY IVP 10/01/20 09:00 10/01/20 08:02 Justifications for Admission Other Justification ARTHUR MCLEOD MD Oct 01, 2020 12:37
--- NOTE | 2020-10-01 13:21 | NUR ---
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
--- NOTE | 2020-10-01 13:24 | NUR ---
Procedure: Following complete explanation of the PICC procedure including the indications, risks, and potential complications, informed consent was obtained. The possibility for infection was discussed along with signs, symptoms, and prevention. All the questions were answered.yes Written and verbal patient education was provided. yes Hand hygiene performed. yes Standardized central line checklist was utilized. yes The patient was placed in the supine position, the arm was prepped with chlorhexidine and patient draped with maximum sterile barrier. 2 mL 1% lidocaine was infiltrated into the skin to provide local anesthesia. A thorough assessment of right upper extremity completed. Using real-time ultrasound guidance and standardized micro puncture set, the Basilic vein was punctured and a peel away sheath was placed using the modified Seldinger technique. A tip location device was used to ensure adequate catheter placement. The catheter was secured using a securement device and an antimicrobial patch was applied directly on the insertion site followed by a transparent dressing. All ports withdraw blood and flush without resistance. Patient tolerated the procedure without apparent complication(s). triple Lumen Power PICC placement successful and uncomplicated. Placement verified by EKG tip confirmation system and/or chest x-ray. Tip located in the CAJ Complications:none Addendum: 10/01/20 at 1326 by ANCELMO CORNELIUS RN Amended: Links added.
--- NOTE | 2020-10-01 16:15 | NUR ---
SS following up with discharge planning. SS reviewed pt chart and discussed with pt RN. Pt is currently on the vent at 75%. COVID19 positive. Pt on IV Decadron. Pt on Propofol, Fentanyl, and Versed. Tube feeds. Not stable. SS will continue to follow for discharge planning.
[2020-10-01] MEDS: SIMVASTATIN 20 MG TABLET PO SCH (20:45)
[2020-10-02] VITALS (24 sets, daily range): BP systolic 110–169; BP diastolic 51–82
[2020-10-02] MEDS: INSULIN LISPRO 300 UNITS/3 ML VIAL. SQ SCH ×4 (00:09→18:27)
[2020-10-02] MEDS: fentaNYL HIGH DOSE PCA 55 ML IV PRN ×2 (02:12→20:08)
[2020-10-02 07:23] LABS: BASE EXCESS ABG 4 mmol/L (-3-3); HCO3 ABG 28 mmol/L (21-28); PCO2 ABG 44 mmHg (35-46); PO2 ABG 72 mmHg (65-108); SAT O2 ABG 92 % (92-99)
[2020-10-02] MEDS: PANTOPRAZOLE IV PUSH 40 MG VIAL. IVP SCH (07:55)
[2020-10-02] MEDS: DEXAMETHASONE SOD PHOS 20 MG/5 ML VIAL. IVP SCH (07:55)
[2020-10-02] MEDS: ASCORBIC ACID 1,000 MG TABLET PO SCH ×3 (07:56→20:31)
[2020-10-02] MEDS: PROPOFOL 100 ML IV PRN (07:56)
[2020-10-02] MEDS: ZINC SULFATE 220 MG CAPSULE. PO SCH (07:56)
[2020-10-02] MEDS: ASPIRIN CHEWABLE 81 MG TABLET. PO SCH (07:56)
[2020-10-02] MEDS: MULTIVITAMINS,THERAPEUTIC 5 ML ORAL LIQUID. PEG SCH (07:56)
[2020-10-02] MEDS: ENOXAPARIN 40 MG/0.4 ML SYRINGE. SQ SCH ×2 (07:56→20:31)
[2020-10-02] MEDS: INSULIN GLARGINE SYRINGE. SQ SCH ×2 (08:56→20:32)
[2020-10-02] MEDS: MIDAZOLAM 100mg/100ml NS BAG 100 ML IV PRN (08:56)
[2020-10-02] MEDS: SENNOSIDES/DOCUSATE 8.6/50MG TABLET. PO SCH ×2 (09:00→20:31)
[2020-10-02] MEDS: IV NORMAL SALINE 1000ML BAG 1,000 ML IV SCH (10:22)
--- NOTE | 2020-10-02 10:33 | PDOC ---
PULMONARY PROGRESS NOTES DATE: 10/02/20 TIME: 10:30 Subjective Patient remains on vent support at 75% and a PEEP of 7 Afebrile No overnight concerns from nursing Vitals Vital Signs Date Time Temp Pulse Resp B/P (MAP) Pulse Ox O2 Delivery O2 Flow Rate FiO2 10/02/20 10:00 44 22 131/65 (87) 97 Ventilator 10/02/20 08:00 98.7 98.7 Comments Visual exam done due to COVID-19. intubated sedated RRR no accessory muscle use abd obese No skin rash, no leg edema Labs Laboratory Tests Test 09/30/20 11:57 09/30/20 16:50 09/30/20 23:42 10/01/20 05:47 Glucose (Fingerstick) 253 mg/dL (70-99) 283 mg/dL (70-99) 229 mg/dL (70-99) 180 mg/dL (70-99) Test 10/01/20 07:35 10/01/20 11:49 10/01/20 16:40 10/01/20 20:20 O2 Saturation 98 % (92-99) Arterial Blood pH 7.42 (7.35-7.45) Arterial Blood pCO2 at Patient Temp 47 mmHg (35-46) Arterial Blood pO2 at Patient Temp 119 mmHg (65-108) Arterial Blood HCO3 30 mmol/L (21-28) Arterial Blood Base Excess 5 mmol/L (-3-3) FiO2 80 Glucose (Fingerstick) 187 mg/dL (70-99) 226 mg/dL (70-99) 212 mg/dL (70-99) Test 10/02/20 00:07 10/02/20 05:25 10/02/20 07:19 Glucose (Fingerstick) 202 mg/dL (70-99) 182 mg/dL (70-99) O2 Saturation 92 % (92-99) Arterial Blood pH 7.43 (7.35-7.45) Arterial Blood pCO2 at Patient Temp 44 mmHg (35-46) Arterial Blood pO2 at Patient Temp 72 mmHg (65-108) Arterial Blood HCO3 28 mmol/L (21-28) Arterial Blood Base Excess 4 mmol/L (-3-3) FiO2 75% vent Laboratory Tests Test 10/01/20 11:49 10/01/20 16:40 10/01/20 20:20 10/02/20 00:07 Glucose (Fingerstick) 187 mg/dL (70-99) 226 mg/dL (70-99) 212 mg/dL (70-99) 202 mg/dL (70-99) Test 10/02/20 05:25 10/02/20 07:19 Glucose (Fingerstick) 182 mg/dL (70-99) O2 Saturation 92 % (92-99) Arterial Blood pH 7.43 (7.35-7.45) Arterial Blood pCO2 at Patient Temp 44 mmHg (35-46) Arterial Blood pO2 at Patient Temp 72 mmHg (65-108) Arterial Blood HCO3 28 mmol/L (21-28) Arterial Blood Base Excess 4 mmol/L (-3-3) FiO2 75% vent Medications Active Scripts Medications Dose Route/Sig Max Daily Dose Days Date Category Icosapent Ethyl 1 Gm Capsule 2 Cap PO BID 09/20/20 Reported Metformin Hcl 1,000 Mg Tablet 1 Tab PO BID 09/20/20 Reported Rybelsus (Semaglutide) 7 Mg Tablet 1 Tab PO DAILY 09/20/20 Reported Farxiga (Dapagliflozin Propanediol) 10 Mg Tablet 1 Tab PO DAILY 09/20/20 Reported Trelegy Ellipta 100-62.5-25 (Fluticasone/Umeclidin/Vilanter) 1 Each Blst.w.dev 1 Puff INH DAILY 09/20/20 Reported Benzonatate 200 Mg Capsule 1 Cap PO TID PRN 09/20/20 Reported Montelukast Sodium 10 Mg Tablet 1 Tab PO DAILY 09/20/20 Reported Loratadine 10 Mg Tablet 1 Tab PO DAILY 09/20/20 Reported Fluticasone Propionate Nasal Seeley (Fluticasone Propionate) 16 Gm Seeley.susp 1 Sprays NS BID 09/20/20 Reported Simvastatin 20 Mg Tablet 1 Tab PO QHS 11/20/15 Reported Comments Chest x-ray reviewed 10/01/2020. Bilateral faint diffuse interstitial infiltrates with mild improvement. Endotracheal tube higher. Will advance cxr reviewed 09/28/20 Endotracheal tube and Feeding tube are in similar position as previously. Heart size and mediastinal silhouette appears somewhat enlarged, however may be accentuated due to poor expiration. There are increasing bilateral airspace opacities throughout both lungs suggesting worsening infiltrates. No pleural effusion or pneumothorax. Chest x-ray reviewed 09/26/2020. Bilateral infiltrates with mild improvement. Impression . 1. Acute hypoxic respiratory failure secondary to COVID-19 viral pneumonia/acute lung injury.---intubated 09/23/20 2. Abnormal chest x-ray consistent with mild infiltrates favoring COVID-19 viral pneumonia. 3. Leukopenia and thrombocytopenia due to COVID-19 viral pneumonia.--improved 4. No significant tobacco history. Plan . Updated 10/02/2020 Continue current ventilatory support 22/500/80/8, wean as tolerated Follow chest x-ray/ABG, make changes as needed Status post remdesivir Wean steroids DC antibiotics as patient has completed a full course Zosyn was started 09/20/2020 Hyperglycemia and hypertension per PCP Continue tube feeding for nutritional support DVT/GI prophylaxis: Lovenox Discussed with RN and RT Advanced endotracheal tube by 2 cm. 10/01. Discussed with patient's in detail. I informed Tammy about his mild improvement. We will continue with present aggressive care. Patient remains full code. Critical care time 30 minutes Updated 10/01/2020 Continue current ventilatory support 22/500/80/8, wean as tolerated Follow chest x-ray/ABG, make changes as needed Status post remdesivir Wean steroids DC antibiotics as patient has completed a full course Zosyn was started 09/20/2020 Hyperglycemia and hypertension per PCP Continue tube feeding for nutritional support DVT/GI prophylaxis: Lovenox Discussed with RN and RT Advanced endotracheal tube by 2 cm. Critical care time 30 minutes Updated 09/30/20 Continue current vent support 22/500/100%/PEEP 8 titrate peep fio2 as tolerated may need to increase peep I>>>O lasix 20 mg iv now Follow CXR/ABG, changes as needed, cxr 09/28, reviewed worse S/P remdesivir. oxygenation worse increase dexamethasone to 20 for 5 days 10 for 5 days , started on 09/23/20 Continue empiric antibiotic on zoysn Continue TF for nutritional support DVT/GI PPX:lovenox D/W RN and RT ERIC GOTTLIEB MD Oct 02, 2020 10:33
--- NOTE | 2020-10-02 11:28 | PDOC ---
[employer] PROGRESS NOTE Date of Service DOS: DATE: 10/02/20 TIME: 11:27 Chief Complaint Chief Complaint Acute COVID-19 pneumonia Acute hypoxic respiratory failure Sepsis History of diabetes mellitus type 2 History of hypertension History of dyslipidemia Increase insulin regimen to 25 units twice daily Pulmonology consult Continue IV thiamine and vitamin C IV 4 mg dexamethasone Daily Pending ferritin, LDH, CRP, D-dimer labs Titrate O2 supplementation to maintain O2 saturation greater than 92% Lovenox for DVT prophylaxis Protonix GI prophylaxis ADA diet Full code Discussed with RN and SW Disposition patient management as above Surrogate decision maker is the Jenni Morrissey History of Present Illness History of Present Illness 65-year-old white male presenting today due to worsening cough and shortness of breath; patient also experiencing vomiting and diarrhea. Patient was recently diagnosed with COVID-19 on September 11 and has been doing well since that until a few days ago when his symptoms acutely worsened this morning. Has not received Covid vaccine. Close contacts at home have very similar symptoms. History notable for hypertension, type 2 diabetes, hyperlipidemia, GERD. 09/21/2020 No acute events overnight. Patient saturating 98% on 10 L nasal cannula. If patient requires increasing O2 requirements may consider pulmonology consult for further management. Continue Covid treatment protocol. Currently on Remdesivir. Patient's chart, labs, images were reviewed and discussed with RN 09/22/2020 No acute events overnight. Patient saturating 91% on 10 L nasal cannula. Patient sitting over the side of bed and doing well and saying that he does have some shortness of breath with ambulation. Combivent inhaler ordered today. Patient's chart, labs, images were reviewed and discussed with RN 09/23/2020 No acute events overnight. Patient is requiring increasing O2 requirements. Saturating 88% on 15 L nonrebreather and also nasal cannula. Patient may require BiPAP. Discussed with pulmonary for possible ICU transfer. Patient's chart, labs, images were reviewed and discussed with RN 09/24/2020: Patient transferred to the ICU yesterday and intubated. Afebrile, currently breathing FiO2 100%, PEEP 10. Final dose of remdesivir today. Chest x- ray yesterday showed interval development of extensive bilateral airspace disease. We will continue treatment with steroids and IV antibiotics. Critical care time 30 minutes spent reviewing charts, reviewing labs, reviewing imaging, discussion with RN. 09/25/2020: Afebrile. On vent with FiO2 80%, PEEP 9. He has completed course of remdesivir. Continue IV steroids for total dose 10 days and IV Zosyn. Critical care time 30 minutes spent reviewing charts, reviewing labs, reviewing imaging, discussion with RN. 09/26/2020: Afebrile. Remains on vent with FiO2 70%, PEEP 8. Completed remdesivir. Continue prophylactic IV Zosyn. Continue IV steroids for total of 10 days (steroid course to end 09/30 with slow taper). Critical care time 30 minutes spent reviewing charts, reviewing labs, reviewing imaging, discussion with RN. 09/27/2020: No acute events overnight. Afebrile. On vent with FiO2 70%, PEEP 8. Continue with IV antibiotics and steroids, with taper. Completed remdesivir. Critical care time 30 minutes spent reviewing charts, reviewing labs, reviewing imaging, discussion with RN. 09/28/2020: Afebrile. On vent with FiO2 90%, PEEP 8. Completed remdesivir. Continue IV antibiotics. Continue steroids to complete 10-day course (09/30/2020). KUB yesterday showed enteric tube tip projects over the body the stomach; bilateral parenchymal lung airspace opacities are seen. Critical care time 30 minutes spent reviewing charts, reviewing labs, reviewing imaging, discussion with RN. 09/29/2020: Afebrile. On vent with increased oxygen requirement, FiO2 100%, PEEP 8. Chest x-ray yesterday showed increasing bilateral airspace opacities throughout both lungs suggesting worsening infiltrates. Continue steroids to complete 10-day course (09/30/2020), and continue IV antibiotics. Critical care time 30 minutes spent reviewing charts, reviewing labs, reviewing imaging, discussion with RN. 09/30/2020: On vent with FiO2 90%, PEEP 8. Afebrile. Steroids have been increased to dexamethasone 20 mg for 5 days, 10 mg for 5 days (started 09/29 to be completed 10/09). Continue IV antibiotics. Critical care time 30 minutes spent reviewing charts, reviewing labs, reviewing imaging, discussion with RN. 10/01/2020 No acute events overnight. Patient saturating 97% on vent settings of 22/500/80/8. Currently sedated and intubated. Patient's chart, labs, images were reviewed and discussed with RN A total of 35 minutes of critical care time was spent in reviewing chart, labs, and images. Discussed with RN and SW. 10/02/2020 No acute events overnight. Patient saturating 95% on vent settings of 22/500/75/7. ABG expected at 7.4 /72/28. Currently intubated and sedated. Patient's chart, labs, images were reviewed and discussed with RN A total of 33 minutes of critical care time was spent in reviewing chart, labs, and images. Discussed with RN and SW. Vitals/I&O Vitals/I&O: Vital Signs Date Time Temp Pulse Resp B/P (MAP) Pulse Ox O2 Delivery O2 Flow Rate FiO2 10/02/20 11:14 96 Ventilator 10/02/20 11:00 41 22 137/67 (90) 10/02/20 08:00 98.7 98.7 I & O 10/01/20 10/01/20 10/02/20 15:00 23:00 07:00 Intake Total 350 ml 1914 ml 2178 ml Output Total 450 ml 1090 ml 750 ml Balance -100 ml 824 ml 1428 ml Physical Exam General: mild distress, Other (Intubated and sedated) Heart: Regular rate Abdomen: Normal bowel sounds Extremities: No clubbing Skin: No rashes, No significant lesion Labs Labs: Laboratory Tests Test 10/01/20 11:49 10/01/20 16:40 10/01/20 20:20 10/02/20 00:07 Glucose (Fingerstick) 187 mg/dL (70-99) 226 mg/dL (70-99) 212 mg/dL (70-99) 202 mg/dL (70-99) Test 10/02/20 05:25 10/02/20 07:19 Glucose (Fingerstick) 182 mg/dL (70-99) O2 Saturation 92 % (92-99) Arterial Blood pH 7.43 (7.35-7.45) Arterial Blood pCO2 at Patient Temp 44 mmHg (35-46) Arterial Blood pO2 at Patient Temp 72 mmHg (65-108) Arterial Blood HCO3 28 mmol/L (21-28) Arterial Blood Base Excess 4 mmol/L (-3-3) FiO2 75% vent Assessment and Plan Assessmemt and Plan Problems Medical Problems: (1) Bilateral pulmonary infiltrates on CXR Status: Acute (2) Fever Status: Acute (3) Hypoxia Status: Acute (4) Lab test positive for detection of COVID-19 virus Status: Acute Comment Review of Relevant I have reviewed the following items lukasz (where applicable) has been applied. Medications: Current Medications Medications (Trade) Dose Ordered Sig/Khadar Route PRN Reason Start Time Stop Time Status Last Admin Dose Admin Insulin Glargine (Lantus Syringe) 25 unit BID SQ 10/01/20 21:00 10/02/20 08:56 Justifications for Admission Other Justification ARTHUR MCLEOD MD Oct 02, 2020 11:28
[2020-10-02] MEDS: SIMVASTATIN 20 MG TABLET PO SCH (20:31)
[2020-10-03] VITALS (24 sets, daily range): BP systolic 96–155; BP diastolic 48–81
[2020-10-03] MEDS: INSULIN LISPRO 300 UNITS/3 ML VIAL. SQ SCH ×4 (00:11→17:32)
[2020-10-03] MEDS: PROPOFOL 100 ML IV PRN ×3 (01:05→15:33)
[2020-10-03] MEDS: MIDAZOLAM 100mg/100ml NS BAG 100 ML IV PRN ×2 (02:26→15:34)
[2020-10-03] MEDS: IV NORMAL SALINE 1000ML BAG 1,000 ML IV SCH (06:32)
[2020-10-03] MEDS: PANTOPRAZOLE IV PUSH 40 MG VIAL. IVP SCH (07:31)
[2020-10-03] MEDS: ASCORBIC ACID 1,000 MG TABLET PO SCH ×3 (07:32→21:08)
[2020-10-03] MEDS: DEXAMETHASONE SOD PHOS 20 MG/5 ML VIAL. IVP SCH (07:32)
[2020-10-03] MEDS: MULTIVITAMINS,THERAPEUTIC 5 ML ORAL LIQUID. PEG SCH (07:32)
[2020-10-03] MEDS: SENNOSIDES/DOCUSATE 8.6/50MG TABLET. PO SCH ×2 (07:32→21:08)
[2020-10-03] MEDS: ZINC SULFATE 220 MG CAPSULE. PO SCH (07:32)
[2020-10-03] MEDS: ASPIRIN CHEWABLE 81 MG TABLET. PO SCH (07:32)
[2020-10-03] MEDS: ENOXAPARIN 40 MG/0.4 ML SYRINGE. SQ SCH ×2 (07:33→21:08)
[2020-10-03 07:53] LABS: BASE EXCESS ABG 6 mmol/L (-3-3); HCO3 ABG 29 mmol/L (21-28); PCO2 ABG 39 mmHg (35-46); PO2 ABG 66 mmHg (65-108); SAT O2 ABG 92 % (92-99)
[2020-10-03 08:05] LABS: FIO2 ABG 75
[2020-10-03] MEDS: INSULIN GLARGINE SYRINGE. SQ SCH ×2 (09:14→21:08)
--- NOTE | 2020-10-03 11:02 | PDOC ---
PULMONARY PROGRESS NOTES DATE: 10/03/20 TIME: 11:01 Subjective Patient remains on vent support Afebrile No overnight concerns from nursing Vitals Vital Signs Date Time Temp Pulse Resp B/P (MAP) Pulse Ox O2 Delivery O2 Flow Rate FiO2 10/03/20 10:00 46 22 107/53 (71) 100 Ventilator 10/03/20 08:00 98.0 98.0 10/02/20 20:52 4.0 Comments Visual exam done due to COVID-19. intubated sedated RRR no accessory muscle use abd obese No skin rash, no leg edema Labs Laboratory Tests Test 10/01/20 11:49 10/01/20 16:40 10/01/20 20:20 10/02/20 00:07 Glucose (Fingerstick) 187 mg/dL (70-99) 226 mg/dL (70-99) 212 mg/dL (70-99) 202 mg/dL (70-99) Test 10/02/20 05:25 10/02/20 07:19 10/02/20 11:34 10/02/20 18:12 Glucose (Fingerstick) 182 mg/dL (70-99) 151 mg/dL (70-99) 266 mg/dL (70-99) O2 Saturation 92 % (92-99) Arterial Blood pH 7.43 (7.35-7.45) Arterial Blood pCO2 at Patient Temp 44 mmHg (35-46) Arterial Blood pO2 at Patient Temp 72 mmHg (65-108) Arterial Blood HCO3 28 mmol/L (21-28) Arterial Blood Base Excess 4 mmol/L (-3-3) FiO2 75% vent Test 10/03/20 00:09 10/03/20 05:24 10/03/20 07:30 Glucose (Fingerstick) 176 mg/dL (70-99) 160 mg/dL (70-99) O2 Saturation 92 % (92-99) Arterial Blood pH 7.49 (7.35-7.45) Arterial Blood pCO2 at Patient Temp 39 mmHg (35-46) Arterial Blood pO2 at Patient Temp 66 mmHg (65-108) Arterial Blood HCO3 29 mmol/L (21-28) Arterial Blood Base Excess 6 mmol/L (-3-3) FiO2 75 Laboratory Tests Test 10/02/20 11:34 10/02/20 18:12 10/03/20 00:09 10/03/20 05:24 Glucose (Fingerstick) 151 mg/dL (70-99) 266 mg/dL (70-99) 176 mg/dL (70-99) 160 mg/dL (70-99) Test 10/03/20 07:30 O2 Saturation 92 % (92-99) Arterial Blood pH 7.49 (7.35-7.45) Arterial Blood pCO2 at Patient Temp 39 mmHg (35-46) Arterial Blood pO2 at Patient Temp 66 mmHg (65-108) Arterial Blood HCO3 29 mmol/L (21-28) Arterial Blood Base Excess 6 mmol/L (-3-3) FiO2 75 Medications Active Scripts Medications Dose Route/Sig Max Daily Dose Days Date Category Icosapent Ethyl 1 Gm Capsule 2 Cap PO BID 09/20/20 Reported Metformin Hcl 1,000 Mg Tablet 1 Tab PO BID 09/20/20 Reported Rybelsus (Semaglutide) 7 Mg Tablet 1 Tab PO DAILY 09/20/20 Reported Farxiga (Dapagliflozin Propanediol) 10 Mg Tablet 1 Tab PO DAILY 09/20/20 Reported Trelegy Ellipta 100-62.5-25 (Fluticasone/Umeclidin/Vilanter) 1 Each Blst.w.dev 1 Puff INH DAILY 09/20/20 Reported Benzonatate 200 Mg Capsule 1 Cap PO TID PRN 09/20/20 Reported Montelukast Sodium 10 Mg Tablet 1 Tab PO DAILY 09/20/20 Reported Loratadine 10 Mg Tablet 1 Tab PO DAILY 09/20/20 Reported Fluticasone Propionate Nasal [place] (Fluticasone Propionate) 16 Gm [place].susp 1 Sprays NS BID 09/20/20 Reported Simvastatin 20 Mg Tablet 1 Tab PO QHS 11/20/15 Reported Comments Chest x-ray reviewed 10/01/2020. Bilateral faint diffuse interstitial infiltrates with mild improvement. Endotracheal tube higher. Will advance cxr reviewed 09/28/20 Endotracheal tube and Feeding tube are in similar position as previously. Heart size and mediastinal silhouette appears somewhat enlarged, however may be accentuated due to poor expiration. There are increasing bilateral airspace opacities throughout both lungs suggesting worsening infiltrates. No pleural effusion or pneumothorax. Chest x-ray reviewed 09/26/2020. Bilateral infiltrates with mild improvement. Impression . 1. Acute hypoxic respiratory failure secondary to COVID-19 viral pneumonia/acute lung injury.---intubated 09/23/20 2. Abnormal chest x-ray consistent with mild infiltrates favoring COVID-19 viral pneumonia. 3. Leukopenia and thrombocytopenia due to COVID-19 viral pneumonia.--improved 4. No significant tobacco history. Plan . Updated 10/03/2020 Continue current ventilatory support 22/500/75/8, wean as tolerated Follow chest x-ray/ABG, make changes as needed Status post remdesivir DC steroids Continue tube feeding for nutritional support DVT/GI prophylaxis: Lovenox Discussed with RN and RT Critical care time 30 minutes Updated 10/02/2020 Continue current ventilatory support 22/500/80/8, wean as tolerated Follow chest x-ray/ABG, make changes as needed Status post remdesivir Wean steroids DC antibiotics as patient has completed a full course Zosyn was started 09/20/2020 Hyperglycemia and hypertension per PCP Continue tube feeding for nutritional support DVT/GI prophylaxis: Lovenox Discussed with RN and RT Advanced endotracheal tube by 2 cm. 10/01. Discussed with patient's in detail. I informed Tammy about his mild improvement. We will continue with present aggressive care. Patient remains full code. Critical care time 30 minutes Updated 10/01/2020 Continue current ventilatory support 22/500/80/8, wean as tolerated Follow chest x-ray/ABG, make changes as needed Status post remdesivir Wean steroids DC antibiotics as patient has completed a full course Zosyn was started 09/20/2020 Hyperglycemia and hypertension per PCP Continue tube feeding for nutritional support DVT/GI prophylaxis: Lovenox Discussed with RN and RT Advanced endotracheal tube by 2 cm. Critical care time 30 minutes Updated 09/30/20 Continue current vent support 22/500/100%/PEEP 8 titrate peep fio2 as tolerated may need to increase peep I>>>O lasix 20 mg iv now Follow CXR/ABG, changes as needed, cxr 09/28, reviewed worse S/P remdesivir. oxygenation worse increase dexamethasone to 20 for 5 days 10 for 5 days , started on 09/23/20 Continue empiric antibiotic on zoysn Continue TF for nutritional support DVT/GI PPX:lovenox D/W RN and RT ERIC GOTTLIEB MD Oct 03, 2020 11:02
--- NOTE | 2020-10-03 11:51 | PDOC ---
[facility] [facility] PROGRESS NOTE Date of Service DOS: DATE: 10/03/20 TIME: 11:49 Chief Complaint Chief Complaint Acute COVID-19 pneumonia Acute hypoxic respiratory failure Sepsis Bradycardia History of diabetes mellitus type 2 History of hypertension History of dyslipidemia Continue insulin regimen to 25 units twice daily Pulmonology consult Continue IV thiamine and vitamin C IV 4 mg dexamethasone Daily Pending ferritin, LDH, CRP, D-dimer labs Titrate O2 supplementation to maintain O2 saturation greater than 92% Lovenox for DVT prophylaxis Protonix GI prophylaxis ADA diet Full code Discussed with RN and SW Disposition patient management as above Surrogate decision maker is the Jenni Morrissey History of Present Illness History of Present Illness 65-year-old white male presenting today due to worsening cough and shortness of breath; patient also experiencing vomiting and diarrhea. Patient was recently diagnosed with COVID-19 on September 11 and has been doing well since that until a few days ago when his symptoms acutely worsened this morning. Has not received Covid vaccine. Close contacts at home have very similar symptoms. History notable for hypertension, type 2 diabetes, hyperlipidemia, GERD. 09/21/2020 No acute events overnight. Patient saturating 98% on 10 L nasal cannula. If patient requires increasing O2 requirements may consider pulmonology consult for further management. Continue Covid treatment protocol. Currently on Remdesivir. Patient's chart, labs, images were reviewed and discussed with RN 09/22/2020 No acute events overnight. Patient saturating 91% on 10 L nasal cannula. Patient sitting over the side of bed and doing well and saying that he does have some shortness of breath with ambulation. Combivent inhaler ordered today. Patient's chart, labs, images were reviewed and discussed with RN 09/23/2020 No acute events overnight. Patient is requiring increasing O2 requirements. Saturating 88% on 15 L nonrebreather and also nasal cannula. Patient may require BiPAP. Discussed with pulmonary for possible ICU transfer. Patient's chart, labs, images were reviewed and discussed with RN 09/24/2020: Patient transferred to the ICU yesterday and intubated. Afebrile, currently breathing FiO2 100%, PEEP 10. Final dose of remdesivir today. Chest x- ray yesterday showed interval development of extensive bilateral airspace disease. We will continue treatment with steroids and IV antibiotics. Critical care time 30 minutes spent reviewing charts, reviewing labs, reviewing imaging, discussion with RN. 09/25/2020: Afebrile. On vent with FiO2 80%, PEEP 9. He has completed course of remdesivir. Continue IV steroids for total dose 10 days and IV Zosyn. Critical care time 30 minutes spent reviewing charts, reviewing labs, reviewing imaging, discussion with RN. 09/26/2020: Afebrile. Remains on vent with FiO2 70%, PEEP 8. Completed remdesivir. Continue prophylactic IV Zosyn. Continue IV steroids for total of 10 days (steroid course to end 09/30 with slow taper). Critical care time 30 minutes spent reviewing charts, reviewing labs, reviewing imaging, discussion with RN. 09/27/2020: No acute events overnight. Afebrile. On vent with FiO2 70%, PEEP 8. Continue with IV antibiotics and steroids, with taper. Completed remdesivir. Critical care time 30 minutes spent reviewing charts, reviewing labs, reviewing imaging, discussion with RN. 09/28/2020: Afebrile. On vent with FiO2 90%, PEEP 8. Completed remdesivir. Continue IV antibiotics. Continue steroids to complete 10-day course (09/30/2020). KUB yesterday showed enteric tube tip projects over the body the stomach; bilateral parenchymal lung airspace opacities are seen. Critical care time 30 minutes spent reviewing charts, reviewing labs, reviewing imaging, discussion with RN. 09/29/2020: Afebrile. On vent with increased oxygen requirement, FiO2 100%, PEEP 8. Chest x-ray yesterday showed increasing bilateral airspace opacities throughout both lungs suggesting worsening infiltrates. Continue steroids to complete 10-day course (09/30/2020), and continue IV antibiotics. Critical care time 30 minutes spent reviewing charts, reviewing labs, reviewing imaging, discussion with RN. 09/30/2020: On vent with FiO2 90%, PEEP 8. Afebrile. Steroids have been increased to dexamethasone 20 mg for 5 days, 10 mg for 5 days (started 09/29 to be completed 10/09). Continue IV antibiotics. Critical care time 30 minutes spent reviewing charts, reviewing labs, reviewing imaging, discussion with RN. 10/01/2020 No acute events overnight. Patient saturating 97% on vent settings of 22/500/80/8. Currently sedated and intubated. Patient's chart, labs, images were reviewed and discussed with RN A total of 35 minutes of critical care time was spent in reviewing chart, labs, and images. Discussed with RN and SW. 10/02/2020 No acute events overnight. Patient saturating 95% on vent settings of 22/500/75/7. ABG expected at 7.4 /72/28. Currently intubated and sedated. Patient's chart, labs, images were reviewed and discussed with RN A total of 33 minutes of critical care time was spent in reviewing chart, labs, and images. Discussed with RN and SW. 10/03/2020 No acute events overnight. Patient saturating 94% on vent settings of 22/500/75/7. Improved sugar control. Patient's chart, labs, images were reviewed and discussed with RN A total of 33 minutes of critical care time was spent in reviewing chart, labs, and images. Discussed with RN and SW. Vitals/I&O Vitals/I&O: Vital Signs Date Time Temp Pulse Resp B/P (MAP) Pulse Ox O2 Delivery O2 Flow Rate FiO2 10/03/20 11:46 100 Ventilator 10/03/20 11:00 42 22 113/57 (75) 10/03/20 08:00 98.0 98.0 10/02/20 20:52 4.0 I & O 10/02/20 10/02/20 10/03/20 15:00 23:00 07:00 Intake Total 275 ml 1527 ml 1704 ml Output Total 775 ml 1325 ml 1225 ml Balance -500 ml 202 ml 479 ml Physical Exam General: mild distress, Other (Intubated and sedated) Heart: Regular rate Abdomen: Normal bowel sounds Extremities: No clubbing Skin: No rashes, No significant lesion Labs Labs: Laboratory Tests Test 10/02/20 18:12 10/03/20 00:09 10/03/20 05:24 10/03/20 07:30 Glucose (Fingerstick) 266 mg/dL (70-99) 176 mg/dL (70-99) 160 mg/dL (70-99) O2 Saturation 92 % (92-99) Arterial Blood pH 7.49 (7.35-7.45) Arterial Blood pCO2 at Patient Temp 39 mmHg (35-46) Arterial Blood pO2 at Patient Temp 66 mmHg (65-108) Arterial Blood HCO3 29 mmol/L (21-28) Arterial Blood Base Excess 6 mmol/L (-3-3) FiO2 75 Test 10/03/20 11:36 Glucose (Fingerstick) 180 mg/dL (70-99) Assessment and Plan Assessmemt and Plan Problems Medical Problems: (1) Bilateral pulmonary infiltrates on CXR Status: Acute (2) Fever Status: Acute (3) Hypoxia Status: Acute (4) Lab test positive for detection of COVID-19 virus Status: Acute Comment Review of Relevant I have reviewed the following items lukasz (where applicable) has been applied. Justifications for Admission Other Justification ARTHUR MCLEOD MD Oct 03, 2020 11:51
[2020-10-03] MEDS: fentaNYL HIGH DOSE PCA 55 ML IV PRN (12:47)
--- NOTE | 2020-10-03 15:58 | NUR ---
SS following up with discharge planning. SS reviewed pt chart and discussed with pt RN. Pt is currently on the vent at 75%. COVID19 positive. Pt on Propofol, Fentanyl, and Versed. Tube feeds. Not stable. SS will continue to follow for discharge planning.
[2020-10-03] MEDS: SIMVASTATIN 20 MG TABLET PO SCH (21:08)
[2020-10-04] VITALS (24 sets, daily range): BP systolic 82–169; BP diastolic 43–84
[2020-10-04] MEDS: INSULIN LISPRO 300 UNITS/3 ML VIAL. SQ SCH ×4 (00:33→18:00)
[2020-10-04] MEDS: PROPOFOL 100 ML IV PRN ×3 (01:44→18:33)
[2020-10-04] MEDS: IV NORMAL SALINE 1000ML BAG 1,000 ML IV SCH ×2 (01:47→21:47)
[2020-10-04 07:53] LABS: BASE EXCESS ABG 5 mmol/L (-3-3); HCO3 ABG 28 mmol/L (21-28); PCO2 ABG 36 mmHg (35-46); PO2 ABG 113 mmHg (65-108); SAT O2 ABG 98 % (92-99)
[2020-10-04] MEDS: MIDAZOLAM 100mg/100ml NS BAG 100 ML IV PRN (08:30)
[2020-10-04 08:35] LABS: FIO2 ABG 75
[2020-10-04] MEDS: ZINC SULFATE 220 MG CAPSULE. PO SCH (08:39)
[2020-10-04] MEDS: ASCORBIC ACID 1,000 MG TABLET PO SCH ×3 (08:39→21:44)
[2020-10-04] MEDS: ENOXAPARIN 40 MG/0.4 ML SYRINGE. SQ SCH ×2 (08:39→21:44)
[2020-10-04] MEDS: PANTOPRAZOLE IV PUSH 40 MG VIAL. IVP SCH (08:39)
[2020-10-04] MEDS: ASPIRIN CHEWABLE 81 MG TABLET. PO SCH (08:40)
[2020-10-04] MEDS: MULTIVITAMINS,THERAPEUTIC 5 ML ORAL LIQUID. PEG SCH (08:40)
[2020-10-04] MEDS: fentaNYL HIGH DOSE PCA 55 ML IV PRN (08:46)
[2020-10-04] MEDS: INSULIN GLARGINE SYRINGE. SQ SCH ×2 (08:47→21:43)
[2020-10-04] MEDS: SENNOSIDES/DOCUSATE 8.6/50MG TABLET. PO SCH ×2 (09:00→21:43)
[2020-10-04 09:30] LABS: BASO # 0.1 x10^3/uL (0.0-0.2); BASO % 1 % (0-3); EOS # 0.1 x10^3/uL (0.0-0.7); EOS % 1 % (0-3); HEMATOCRIT 38.5 % (39.0-53.0); HEMOGLOBIN 12.9 g/dL (13.0-17.5); LYMPH # 1.9 x10^3/uL (1.0-4.8); LYMPH % 18 % (24-48); MEAN CORPUSCULAR HEMOGLOBIN 30 pg (25-35); MEAN CORPUSCULAR HGB CONC 34 g/dL (31-37); MEAN CORPUSCULAR VOLUME 88 fL (79-100); MONO % 10 % (0-9); NEUT # 7.5 x10^3/uL (1.8-7.7); NEUT % 71 % (31-73); PLATELET COUNT 230 x10^3/uL (140-400); RED BLOOD COUNT 4.36 x10^6/uL (4.30-5.70); RED CELL DISTRIBUTION WIDTH 13.6 % (11.5-14.5); WHITE BLOOD COUNT 10.5 x10^3/uL (4.0-11.0)
[2020-10-04 09:41] LABS: CALCIUM 8.3 mg/dL (8.5-10.1); CREATININE 0.7 mg/dL (0.7-1.3); GFR 113.9; POTASSIUM 3.7 mmol/L (3.5-5.1)
--- NOTE | 2020-10-04 11:43 | PDOC ---
PULMONARY PROGRESS NOTES DATE: 10/04/20 TIME: 11:42 Subjective Patient remains on vent support Afebrile No overnight concerns from nursing Vitals Vital Signs Date Time Temp Pulse Resp B/P (MAP) Pulse Ox O2 Delivery O2 Flow Rate FiO2 10/04/20 09:16 22 100 Ventilator 4.0 10/04/20 07:00 42 110/55 (73) 10/04/20 04:00 98.3 98.3 Comments Visual exam done due to COVID-19. intubated sedated RRR no accessory muscle use abd obese No skin rash, no leg edema Labs Laboratory Tests Test 10/02/20 18:12 10/03/20 00:09 10/03/20 05:24 10/03/20 07:30 Glucose (Fingerstick) 266 mg/dL (70-99) 176 mg/dL (70-99) 160 mg/dL (70-99) O2 Saturation 92 % (92-99) Arterial Blood pH 7.49 (7.35-7.45) Arterial Blood pCO2 at Patient Temp 39 mmHg (35-46) Arterial Blood pO2 at Patient Temp 66 mmHg (65-108) Arterial Blood HCO3 29 mmol/L (21-28) Arterial Blood Base Excess 6 mmol/L (-3-3) FiO2 75 Test 10/03/20 11:36 10/03/20 17:17 10/04/20 00:26 10/04/20 08:00 Glucose (Fingerstick) 180 mg/dL (70-99) 206 mg/dL (70-99) 172 mg/dL (70-99) O2 Saturation 98 % (92-99) Arterial Blood pH 7.52 (7.35-7.45) Arterial Blood pCO2 at Patient Temp 36 mmHg (35-46) Arterial Blood pO2 at Patient Temp 113 mmHg (65-108) Arterial Blood HCO3 28 mmol/L (21-28) Arterial Blood Base Excess 5 mmol/L (-3-3) FiO2 75 Test 10/04/20 09:15 White Blood Count 10.5 x10^3/uL (4.0-11.0) Red Blood Count 4.36 x10^6/uL (4.30-5.70) Hemoglobin 12.9 g/dL (13.0-17.5) Hematocrit 38.5 % (39.0-53.0) Mean Corpuscular Volume 88 fL (79-100) Mean Corpuscular Hemoglobin 30 pg (25-35) Mean Corpuscular Hemoglobin Concent 34 g/dL (31-37) Red Cell Distribution Width 13.6 % (11.5-14.5) Platelet Count 230 x10^3/uL (140-400) Neutrophils (%) (Auto) 71 % (31-73) Lymphocytes (%) (Auto) 18 % (24-48) Monocytes (%) (Auto) 10 % (0-9) Eosinophils (%) (Auto) 1 % (0-3) Basophils (%) (Auto) 1 % (0-3) Neutrophils # (Auto) 7.5 x10^3/uL (1.8-7.7) Lymphocytes # (Auto) 1.9 x10^3/uL (1.0-4.8) Monocytes # (Auto) 1.0 x10^3/uL (0.0-1.1) Eosinophils # (Auto) 0.1 x10^3/uL (0.0-0.7) Basophils # (Auto) 0.1 x10^3/uL (0.0-0.2) Sodium Level 140 mmol/L (136-145) Potassium Level 3.7 mmol/L (3.5-5.1) Chloride Level 104 mmol/L (98-107) Carbon Dioxide Level 33 mmol/L (21-32) Anion Gap 3 (6-14) Blood Urea Nitrogen 19 mg/dL (8-26) Creatinine 0.7 mg/dL (0.7-1.3) Estimated GFR (Cockcroft-Gault) 113.9 Glucose Level 135 mg/dL (70-99) Calcium Level 8.3 mg/dL (8.5-10.1) Laboratory Tests Test 10/03/20 17:17 10/04/20 00:26 10/04/20 08:00 10/04/20 09:15 Glucose (Fingerstick) 206 mg/dL (70-99) 172 mg/dL (70-99) O2 Saturation 98 % (92-99) Arterial Blood pH 7.52 (7.35-7.45) Arterial Blood pCO2 at Patient Temp 36 mmHg (35-46) Arterial Blood pO2 at Patient Temp 113 mmHg (65-108) Arterial Blood HCO3 28 mmol/L (21-28) Arterial Blood Base Excess 5 mmol/L (-3-3) FiO2 75 White Blood Count 10.5 x10^3/uL (4.0-11.0) Red Blood Count 4.36 x10^6/uL (4.30-5.70) Hemoglobin 12.9 g/dL (13.0-17.5) Hematocrit 38.5 % (39.0-53.0) Mean Corpuscular Volume 88 fL (79-100) Mean Corpuscular Hemoglobin 30 pg (25-35) Mean Corpuscular Hemoglobin Concent 34 g/dL (31-37) Red Cell Distribution Width 13.6 % (11.5-14.5) Platelet Count 230 x10^3/uL (140-400) Neutrophils (%) (Auto) 71 % (31-73) Lymphocytes (%) (Auto) 18 % (24-48) Monocytes (%) (Auto) 10 % (0-9) Eosinophils (%) (Auto) 1 % (0-3) Basophils (%) (Auto) 1 % (0-3) Neutrophils # (Auto) 7.5 x10^3/uL (1.8-7.7) Lymphocytes # (Auto) 1.9 x10^3/uL (1.0-4.8) Monocytes # (Auto) 1.0 x10^3/uL (0.0-1.1) Eosinophils # (Auto) 0.1 x10^3/uL (0.0-0.7) Basophils # (Auto) 0.1 x10^3/uL (0.0-0.2) Sodium Level 140 mmol/L (136-145) Potassium Level 3.7 mmol/L (3.5-5.1) Chloride Level 104 mmol/L (98-107) Carbon Dioxide Level 33 mmol/L (21-32) Anion Gap 3 (6-14) Blood Urea Nitrogen 19 mg/dL (8-26) Creatinine 0.7 mg/dL (0.7-1.3) Estimated GFR (Cockcroft-Gault) 113.9 Glucose Level 135 mg/dL (70-99) Calcium Level 8.3 mg/dL (8.5-10.1) Medications Active Scripts Medications Dose Route/Sig Max Daily Dose Days Date Category Icosapent Ethyl 1 Gm Capsule 2 Cap PO BID 09/20/20 Reported Metformin Hcl 1,000 Mg Tablet 1 Tab PO BID 09/20/20 Reported Rybelsus (Semaglutide) 7 Mg Tablet 1 Tab PO DAILY 09/20/20 Reported Farxiga (Dapagliflozin Propanediol) 10 Mg Tablet 1 Tab PO DAILY 09/20/20 Reported Trelegy Ellipta 100-62.5-25 (Fluticasone/Umeclidin/Vilanter) 1 Each Blst.w.dev 1 Puff INH DAILY 09/20/20 Reported Benzonatate 200 Mg Capsule 1 Cap PO TID PRN 09/20/20 Reported Montelukast Sodium 10 Mg Tablet 1 Tab PO DAILY 09/20/20 Reported Loratadine 10 Mg Tablet 1 Tab PO DAILY 09/20/20 Reported Fluticasone Propionate Nasal [place] (Fluticasone Propionate) 16 Gm [place].susp 1 Sprays NS BID 09/20/20 Reported Simvastatin 20 Mg Tablet 1 Tab PO QHS 11/20/15 Reported Impression . 1. Acute hypoxic respiratory failure secondary to COVID-19 viral pneumonia/acute lung injury.---intubated 09/23/20 2. Abnormal chest x-ray consistent with mild infiltrates favoring COVID-19 viral pneumonia. 3. Leukopenia and thrombocytopenia due to COVID-19 viral pneumonia.--improved 4. No significant tobacco history. Plan . Updated 10/04/2020 Continue current ventilatory support 22/500/75/8, wean as tolerated Follow chest x-ray/ABG,--reduce FiO2 to 65%, and reduce respiratory rate to 20 Status post remdesivir --Patient has completed full course of steroids as well Continue tube feeding for nutritional support DVT/GI prophylaxis: Lovenox Discussed with RN and RT Critical care time 30 minutes TANMAY MAGAÑA APRN Oct 04, 2020 11:43
--- NOTE | 2020-10-04 12:47 | PDOC ---
[facility] PROGRESS NOTE Date of Service DOS: DATE: 10/04/20 TIME: 12:45 Chief Complaint Chief Complaint Acute COVID-19 pneumonia Acute hypoxic respiratory failure Sepsis Bradycardia History of diabetes mellitus type 2 History of hypertension History of dyslipidemia Continue insulin regimen to 25 units twice daily Pulmonology consult Continue IV thiamine and vitamin C IV 4 mg dexamethasone Daily Pending ferritin, LDH, CRP, D-dimer labs Titrate O2 supplementation to maintain O2 saturation greater than 92% Lovenox for DVT prophylaxis Protonix GI prophylaxis ADA diet Full code Discussed with RN and SW Disposition patient management as above Surrogate decision maker is the Jenni Morrissey History of Present Illness History of Present Illness 65-year-old white male presenting today due to worsening cough and shortness of breath; patient also experiencing vomiting and diarrhea. Patient was recently diagnosed with COVID-19 on September 11 and has been doing well since that until a few days ago when his symptoms acutely worsened this morning. Has not received Covid vaccine. Close contacts at home have very similar symptoms. History notable for hypertension, type 2 diabetes, hyperlipidemia, GERD. 09/21/2020 No acute events overnight. Patient saturating 98% on 10 L nasal cannula. If patient requires increasing O2 requirements may consider pulmonology consult for further management. Continue Covid treatment protocol. Currently on Remdesivir. Patient's chart, labs, images were reviewed and discussed with RN 09/22/2020 No acute events overnight. Patient saturating 91% on 10 L nasal cannula. Patient sitting over the side of bed and doing well and saying that he does have some shortness of breath with ambulation. Combivent inhaler ordered today. Patient's chart, labs, images were reviewed and discussed with RN 09/23/2020 No acute events overnight. Patient is requiring increasing O2 requirements. Saturating 88% on 15 L nonrebreather and also nasal cannula. Patient may require BiPAP. Discussed with pulmonary for possible ICU transfer. Patient's chart, labs, images were reviewed and discussed with RN 09/24/2020: Patient transferred to the ICU yesterday and intubated. Afebrile, currently breathing FiO2 100%, PEEP 10. Final dose of remdesivir today. Chest x- ray yesterday showed interval development of extensive bilateral airspace disease. We will continue treatment with steroids and IV antibiotics. Critical care time 30 minutes spent reviewing charts, reviewing labs, reviewing imaging, discussion with RN. 09/25/2020: Afebrile. On vent with FiO2 80%, PEEP 9. He has completed course of remdesivir. Continue IV steroids for total dose 10 days and IV Zosyn. Critical care time 30 minutes spent reviewing charts, reviewing labs, reviewing imaging, discussion with RN. 09/26/2020: Afebrile. Remains on vent with FiO2 70%, PEEP 8. Completed remdesivir. Continue prophylactic IV Zosyn. Continue IV steroids for total of 10 days (steroid course to end 09/30 with slow taper). Critical care time 30 minutes spent reviewing charts, reviewing labs, reviewing imaging, discussion with RN. 09/27/2020: No acute events overnight. Afebrile. On vent with FiO2 70%, PEEP 8. Continue with IV antibiotics and steroids, with taper. Completed remdesivir. Critical care time 30 minutes spent reviewing charts, reviewing labs, reviewing imaging, discussion with RN. 09/28/2020: Afebrile. On vent with FiO2 90%, PEEP 8. Completed remdesivir. Continue IV antibiotics. Continue steroids to complete 10-day course (09/30/2020). KUB yesterday showed enteric tube tip projects over the body the stomach; bilateral parenchymal lung airspace opacities are seen. Critical care time 30 minutes spent reviewing charts, reviewing labs, reviewing imaging, discussion with RN. 09/29/2020: Afebrile. On vent with increased oxygen requirement, FiO2 100%, PEEP 8. Chest x-ray yesterday showed increasing bilateral airspace opacities throughout both lungs suggesting worsening infiltrates. Continue steroids to complete 10-day course (09/30/2020), and continue IV antibiotics. Critical care time 30 minutes spent reviewing charts, reviewing labs, reviewing imaging, discussion with RN. 09/30/2020: On vent with FiO2 90%, PEEP 8. Afebrile. Steroids have been increased to dexamethasone 20 mg for 5 days, 10 mg for 5 days (started 09/29 to be completed 10/09). Continue IV antibiotics. Critical care time 30 minutes spent reviewing charts, reviewing labs, reviewing imaging, discussion with RN. 10/01/2020 No acute events overnight. Patient saturating 97% on vent settings of 22/500/80/8. Currently sedated and intubated. Patient's chart, labs, images were reviewed and discussed with RN A total of 35 minutes of critical care time was spent in reviewing chart, labs, and images. Discussed with RN and SW. 10/02/2020 No acute events overnight. Patient saturating 95% on vent settings of 22/500/75/7. ABG expected at 7.4 /72/28. Currently intubated and sedated. Patient's chart, labs, images were reviewed and discussed with RN A total of 33 minutes of critical care time was spent in reviewing chart, labs, and images. Discussed with RN and SW. 10/03/2020 No acute events overnight. Patient saturating 94% on vent settings of 22/500/75/7. Improved sugar control. Patient's chart, labs, images were reviewed and discussed with RN A total of 33 minutes of critical care time was spent in reviewing chart, labs, and images. Discussed with RN and SW. 05/04/2020 No acute events overnight. Patient continues to be saturating 100% on vent settings of 22/500/65/7. Last ABG show pH of 7.5 //28. Adjustments to vent settings made by pulmonology. Patient's chart, labs, images were reviewed and discussed with RN A total of [] minutes of critical care time was spent in reviewing chart, labs, and images. Discussed with RN and KALEN. Vitals/I&O Vitals/I&O: Vital Signs Date Time Temp Pulse Resp B/P (MAP) Pulse Ox O2 Delivery O2 Flow Rate FiO2 10/04/20 11:55 100 Ventilator 10/04/20 11:00 70 22 138/67 (90) 10/04/20 09:16 4.0 10/04/20 08:00 98.5 98.5 I & O 10/03/20 10/03/20 10/04/20 15:00 23:00 07:00 Intake Total 200 ml 1945 ml 1841 ml Output Total 875 ml 1150 ml 825 ml Balance -675 ml 795 ml 1016 ml Physical Exam General: mild distress, Other (Intubated and sedated) Heart: Regular rate Abdomen: Normal bowel sounds Extremities: No clubbing Skin: No rashes, No significant lesion Labs Labs: Laboratory Tests Test 10/03/20 17:17 10/04/20 00:26 10/04/20 08:00 8/26/21 09:15 Glucose (Fingerstick) 206 mg/dL (70-99) 172 mg/dL (70-99) O2 Saturation 98 % (92-99) Arterial Blood pH 7.52 (7.35-7.45) Arterial Blood pCO2 at Patient Temp 36 mmHg (35-46) Arterial Blood pO2 at Patient Temp 113 mmHg (65-108) Arterial Blood HCO3 28 mmol/L (21-28) Arterial Blood Base Excess 5 mmol/L (-3-3) FiO2 75 White Blood Count 10.5 x10^3/uL (4.0-11.0) Red Blood Count 4.36 x10^6/uL (4.30-5.70) Hemoglobin 12.9 g/dL (13.0-17.5) Hematocrit 38.5 % (39.0-53.0) Mean Corpuscular Volume 88 fL (79-100) Mean Corpuscular Hemoglobin 30 pg (25-35) Mean Corpuscular Hemoglobin Concent 34 g/dL (31-37) Red Cell Distribution Width 13.6 % (11.5-14.5) Platelet Count 230 x10^3/uL (140-400) Neutrophils (%) (Auto) 71 % (31-73) Lymphocytes (%) (Auto) 18 % (24-48) Monocytes (%) (Auto) 10 % (0-9) Eosinophils (%) (Auto) 1 % (0-3) Basophils (%) (Auto) 1 % (0-3) Neutrophils # (Auto) 7.5 x10^3/uL (1.8-7.7) Lymphocytes # (Auto) 1.9 x10^3/uL (1.0-4.8) Monocytes # (Auto) 1.0 x10^3/uL (0.0-1.1) Eosinophils # (Auto) 0.1 x10^3/uL (0.0-0.7) Basophils # (Auto) 0.1 x10^3/uL (0.0-0.2) Sodium Level 140 mmol/L (136-145) Potassium Level 3.7 mmol/L (3.5-5.1) Chloride Level 104 mmol/L (98-107) Carbon Dioxide Level 33 mmol/L (21-32) Anion Gap 3 (6-14) Blood Urea Nitrogen 19 mg/dL (8-26) Creatinine 0.7 mg/dL (0.7-1.3) Estimated GFR (Cockcroft-Gault) 113.9 Glucose Level 135 mg/dL (70-99) Calcium Level 8.3 mg/dL (8.5-10.1) Test 10/04/20 12:41 Glucose (Fingerstick) 144 mg/dL (70-99) Assessment and Plan Assessmemt and Plan Problems Medical Problems: (1) Bilateral pulmonary infiltrates on CXR Status: Acute (2) Fever Status: Acute (3) Hypoxia Status: Acute (4) Lab test positive for detection of COVID-19 virus Status: Acute Comment Review of Relevant I have reviewed the following items lukasz (where applicable) has been applied. Justifications for Admission Other Justification ARTHUR MCLEOD MD Oct 04, 2020 12:47
--- NOTE | 2020-10-04 15:43 | NUR ---
SS following up with discharge planning. SS reviewed pt chart and discussed with pt RN. Pt is currently on the vent at 65%. COVID19 positive. Pt on Propofol, Fentanyl, and Versed. Tube feeds. Not stable. SS will continue to follow for discharge planning.
[2020-10-04] MEDS: SIMVASTATIN 20 MG TABLET PO SCH (21:00)
[2020-10-05] VITALS (24 sets, daily range): BP systolic 81–168; BP diastolic 41–94
[2020-10-05] MEDS: MIDAZOLAM 100mg/100ml NS BAG 100 ML IV PRN ×2 (00:02→16:39)
[2020-10-05] MEDS: PROPOFOL 100 ML IV PRN ×2 (02:29→16:38)
[2020-10-05] MEDS: fentaNYL HIGH DOSE PCA 55 ML IV PRN ×2 (02:31→21:09)
[2020-10-05 05:32] LABS: CALCIUM 8.2 mg/dL (8.5-10.1); CREATININE 0.7 mg/dL (0.7-1.3); GFR 113.9; POTASSIUM 3.8 mmol/L (3.5-5.1)
[2020-10-05 05:38] LABS: BASO # 0.1 x10^3/uL (0.0-0.2); BASO % 1 % (0-3); EOS # 0.1 x10^3/uL (0.0-0.7); EOS % 1 % (0-3); HEMATOCRIT 35.2 % (39.0-53.0); HEMOGLOBIN 12.1 g/dL (13.0-17.5); LYMPH # 1.9 x10^3/uL (1.0-4.8); LYMPH % 21 % (24-48); MEAN CORPUSCULAR HEMOGLOBIN 30 pg (25-35); MEAN CORPUSCULAR HGB CONC 34 g/dL (31-37); MEAN CORPUSCULAR VOLUME 87 fL (79-100); MONO % 11 % (0-9); NEUT # 5.9 x10^3/uL (1.8-7.7); NEUT % 66 % (31-73); PLATELET COUNT 207 x10^3/uL (140-400); RED BLOOD COUNT 4.05 x10^6/uL (4.30-5.70); RED CELL DISTRIBUTION WIDTH 13.9 % (11.5-14.5); WHITE BLOOD COUNT 9.1 x10^3/uL (4.0-11.0)
[2020-10-05] MEDS: INSULIN LISPRO 300 UNITS/3 ML VIAL. SQ SCH ×4 (06:00→18:00)
--- NOTE | 2020-10-05 08:10 | RAD ---
EXAM: Chest, single view. HISTORY: Respiratory failure. COMPARISON: 10/01/2020 FINDINGS: A frontal view of the chest is obtained. There is an endotracheal tube within the mid trach ea at the thoracic inlet. There is nasogastric tube within the stomach. There is a right PICC with th e tip overlying expected location of the superior cavoatrial junction. There is stable diffuse mixed interstitial and alveolar infiltrate. No pleural effusion or pneumothorax is seen. There is stable ca rdiac silhouette. IMPRESSION: 1. Stable diffuse infiltrate. 2. Stable support lines and tubes. Electronically signed by: Eleonora Coe MD (10/05/2020 8:08 AM) [id number]
[2020-10-05 08:32] LABS: BASE EXCESS ABG 4 mmol/L (-3-3); HCO3 ABG 29 mmol/L (21-28); PCO2 ABG 44 mmHg (35-46); PO2 ABG 123 mmHg (65-108); SAT O2 ABG 98 % (92-99)
[2020-10-05] MEDS: PANTOPRAZOLE IV PUSH 40 MG VIAL. IVP SCH (08:33)
[2020-10-05] MEDS: ENOXAPARIN 40 MG/0.4 ML SYRINGE. SQ SCH ×2 (08:33→20:23)
[2020-10-05] MEDS: MULTIVITAMINS,THERAPEUTIC 5 ML ORAL LIQUID. PEG SCH (08:33)
[2020-10-05 08:34] LABS: FIO2 ABG 65
[2020-10-05] MEDS: ZINC SULFATE 220 MG CAPSULE. PO SCH (08:34)
[2020-10-05] MEDS: ASPIRIN CHEWABLE 81 MG TABLET. PO SCH (08:34)
[2020-10-05] MEDS: ASCORBIC ACID 1,000 MG TABLET PO SCH ×3 (08:34→20:21)
[2020-10-05] MEDS: INSULIN GLARGINE SYRINGE. SQ SCH ×2 (08:35→20:22)
[2020-10-05] MEDS: SENNOSIDES/DOCUSATE 8.6/50MG TABLET. PO SCH ×2 (08:35→20:21)
--- NOTE | 2020-10-05 10:07 | PDOC ---
PULMONARY PROGRESS NOTES DATE: 10/05/20 TIME: 10:05 Subjective Patient remains on vent support Afebrile No overnight concerns from nursing Oxygen requirement slowly improving. Now down to 55% FiO2 and 7 of PEEP. Vitals Vital Signs Date Time Temp Pulse Resp B/P (MAP) Pulse Ox O2 Delivery O2 Flow Rate FiO2 10/05/20 08:58 99 Ventilator 10/05/20 07:00 70 20 102/53 (69) 10/05/20 05:00 98.1 98.1 10/05/20 03:01 4.0 Comments Visual exam done due to COVID-19. intubated sedated RRR no accessory muscle use abd obese No skin rash, no leg edema Lungs: Clear Cardiovascular: S1 Abdomen: Soft Extremities: No Edema Labs Laboratory Tests Test 10/03/20 11:36 10/03/20 17:17 10/04/20 00:26 10/04/20 08:00 Glucose (Fingerstick) 180 mg/dL (70-99) 206 mg/dL (70-99) 172 mg/dL (70-99) O2 Saturation 98 % (92-99) Arterial Blood pH 7.52 (7.35-7.45) Arterial Blood pCO2 at Patient Temp 36 mmHg (35-46) Arterial Blood pO2 at Patient Temp 113 mmHg (65-108) Arterial Blood HCO3 28 mmol/L (21-28) Arterial Blood Base Excess 5 mmol/L (-3-3) FiO2 75 Test 10/04/20 09:15 10/04/20 12:41 10/04/20 18:25 10/04/20 23:43 White Blood Count 10.5 x10^3/uL (4.0-11.0) Red Blood Count 4.36 x10^6/uL (4.30-5.70) Hemoglobin 12.9 g/dL (13.0-17.5) Hematocrit 38.5 % (39.0-53.0) Mean Corpuscular Volume 88 fL (79-100) Mean Corpuscular Hemoglobin 30 pg (25-35) Mean Corpuscular Hemoglobin Concent 34 g/dL (31-37) Red Cell Distribution Width 13.6 % (11.5-14.5) Platelet Count 230 x10^3/uL (140-400) Neutrophils (%) (Auto) 71 % (31-73) Lymphocytes (%) (Auto) 18 % (24-48) Monocytes (%) (Auto) 10 % (0-9) Eosinophils (%) (Auto) 1 % (0-3) Basophils (%) (Auto) 1 % (0-3) Neutrophils # (Auto) 7.5 x10^3/uL (1.8-7.7) Lymphocytes # (Auto) 1.9 x10^3/uL (1.0-4.8) Monocytes # (Auto) 1.0 x10^3/uL (0.0-1.1) Eosinophils # (Auto) 0.1 x10^3/uL (0.0-0.7) Basophils # (Auto) 0.1 x10^3/uL (0.0-0.2) Sodium Level 140 mmol/L (136-145) Potassium Level 3.7 mmol/L (3.5-5.1) Chloride Level 104 mmol/L (98-107) Carbon Dioxide Level 33 mmol/L (21-32) Anion Gap 3 (6-14) Blood Urea Nitrogen 19 mg/dL (8-26) Creatinine 0.7 mg/dL (0.7-1.3) Estimated GFR (Cockcroft-Gault) 113.9 Glucose Level 135 mg/dL (70-99) Calcium Level 8.3 mg/dL (8.5-10.1) Glucose (Fingerstick) 144 mg/dL (70-99) 129 mg/dL (70-99) 106 mg/dL (70-99) Test 10/05/20 05:00 10/05/20 08:28 White Blood Count 9.1 x10^3/uL (4.0-11.0) Red Blood Count 4.05 x10^6/uL (4.30-5.70) Hemoglobin 12.1 g/dL (13.0-17.5) Hematocrit 35.2 % (39.0-53.0) Mean Corpuscular Volume 87 fL (79-100) Mean Corpuscular Hemoglobin 30 pg (25-35) Mean Corpuscular Hemoglobin Concent 34 g/dL (31-37) Red Cell Distribution Width 13.9 % (11.5-14.5) Platelet Count 207 x10^3/uL (140-400) Neutrophils (%) (Auto) 66 % (31-73) Lymphocytes (%) (Auto) 21 % (24-48) Monocytes (%) (Auto) 11 % (0-9) Eosinophils (%) (Auto) 1 % (0-3) Basophils (%) (Auto) 1 % (0-3) Neutrophils # (Auto) 5.9 x10^3/uL (1.8-7.7) Lymphocytes # (Auto) 1.9 x10^3/uL (1.0-4.8) Monocytes # (Auto) 1.0 x10^3/uL (0.0-1.1) Eosinophils # (Auto) 0.1 x10^3/uL (0.0-0.7) Basophils # (Auto) 0.1 x10^3/uL (0.0-0.2) Sodium Level 141 mmol/L (136-145) Potassium Level 3.8 mmol/L (3.5-5.1) Chloride Level 105 mmol/L (98-107) Carbon Dioxide Level 30 mmol/L (21-32) Anion Gap 6 (6-14) Blood Urea Nitrogen 25 mg/dL (8-26) Creatinine 0.7 mg/dL (0.7-1.3) Estimated GFR (Cockcroft-Gault) 113.9 Glucose Level 123 mg/dL (70-99) Calcium Level 8.2 mg/dL (8.5-10.1) O2 Saturation 98 % (92-99) Arterial Blood pH 7.43 (7.35-7.45) Arterial Blood pCO2 at Patient Temp 44 mmHg (35-46) Arterial Blood pO2 at Patient Temp 123 mmHg (65-108) Arterial Blood HCO3 29 mmol/L (21-28) Arterial Blood Base Excess 4 mmol/L (-3-3) FiO2 65 Laboratory Tests Test 10/04/20 12:41 10/04/20 18:25 10/04/20 23:43 10/05/20 05:00 Glucose (Fingerstick) 144 mg/dL (70-99) 129 mg/dL (70-99) 106 mg/dL (70-99) White Blood Count 9.1 x10^3/uL (4.0-11.0) Red Blood Count 4.05 x10^6/uL (4.30-5.70) Hemoglobin 12.1 g/dL (13.0-17.5) Hematocrit 35.2 % (39.0-53.0) Mean Corpuscular Volume 87 fL (79-100) Mean Corpuscular Hemoglobin 30 pg (25-35) Mean Corpuscular Hemoglobin Concent 34 g/dL (31-37) Red Cell Distribution Width 13.9 % (11.5-14.5) Platelet Count 207 x10^3/uL (140-400) Neutrophils (%) (Auto) 66 % (31-73) Lymphocytes (%) (Auto) 21 % (24-48) Monocytes (%) (Auto) 11 % (0-9) Eosinophils (%) (Auto) 1 % (0-3) Basophils (%) (Auto) 1 % (0-3) Neutrophils # (Auto) 5.9 x10^3/uL (1.8-7.7) Lymphocytes # (Auto) 1.9 x10^3/uL (1.0-4.8) Monocytes # (Auto) 1.0 x10^3/uL (0.0-1.1) Eosinophils # (Auto) 0.1 x10^3/uL (0.0-0.7) Basophils # (Auto) 0.1 x10^3/uL (0.0-0.2) Sodium Level 141 mmol/L (136-145) Potassium Level 3.8 mmol/L (3.5-5.1) Chloride Level 105 mmol/L (98-107) Carbon Dioxide Level 30 mmol/L (21-32) Anion Gap 6 (6-14) Blood Urea Nitrogen 25 mg/dL (8-26) Creatinine 0.7 mg/dL (0.7-1.3) Estimated GFR (Cockcroft-Gault) 113.9 Glucose Level 123 mg/dL (70-99) Calcium Level 8.2 mg/dL (8.5-10.1) Test 10/05/20 08:28 O2 Saturation 98 % (92-99) Arterial Blood pH 7.43 (7.35-7.45) Arterial Blood pCO2 at Patient Temp 44 mmHg (35-46) Arterial Blood pO2 at Patient Temp 123 mmHg (65-108) Arterial Blood HCO3 29 mmol/L (21-28) Arterial Blood Base Excess 4 mmol/L (-3-3) FiO2 65 Medications Active Scripts Medications Dose Route/Sig Max Daily Dose Days Date Category Icosapent Ethyl 1 Gm Capsule 2 Cap PO BID 09/20/20 Reported Metformin Hcl 1,000 Mg Tablet 1 Tab PO BID 09/20/20 Reported Rybelsus (Semaglutide) 7 Mg Tablet 1 Tab PO DAILY 09/20/20 Reported Farxiga (Dapagliflozin Propanediol) 10 Mg Tablet 1 Tab PO DAILY 09/20/20 Reported Trelegy Ellipta 100-62.5-25 (Fluticasone/Umeclidin/Vilanter) 1 Each Blst.w.dev 1 Puff INH DAILY 09/20/20 Reported Benzonatate 200 Mg Capsule 1 Cap PO TID PRN 09/20/20 Reported Montelukast Sodium 10 Mg Tablet 1 Tab PO DAILY 09/20/20 Reported Loratadine 10 Mg Tablet 1 Tab PO DAILY 09/20/20 Reported Fluticasone Propionate Nasal [place] (Fluticasone Propionate) 16 Gm [place].susp 1 Sprays NS BID 09/20/20 Reported Simvastatin 20 Mg Tablet 1 Tab PO QHS 11/20/15 Reported Comments Chest x-ray reviewed 10/05/2020 Diffuse bilateral unchanged interstitial infiltrates related to Covid Impression . 1. Acute hypoxic respiratory failure secondary to COVID-19 viral pneumonia/acute lung injury.---intubated 09/23/20 2. Abnormal chest x-ray consistent with mild infiltrates favoring COVID-19 viral pneumonia. 3. Leukopenia and thrombocytopenia due to COVID-19 viral pneumonia.--improved 4. No significant tobacco history. Plan . Updated 10/05/2020 Continue current ventilatory support /500/75/8, wean as tolerated Follow chest x-ray/ABG,--reduce FiO2 to 50%, current PEEP is at 7. Status post remdesivir --Patient has completed full course of steroids as well Continue tube feeding for nutritional support DVT/GI prophylaxis: Lovenox Discussed with RN and RT Patient is clinically improving. Once down to 40% oxygen and 5 of PEEP we will start weaning sedation. Critical care time 30 minutes Updated 10/04/2020 Continue current ventilatory support 22/500/75/8, wean as tolerated Follow chest x-ray/ABG,--reduce FiO2 to 65%, and reduce respiratory rate to 20 Status post remdesivir --Patient has completed full course of steroids as well Continue tube feeding for nutritional support DVT/GI prophylaxis: Lovenox Discussed with RN and RT Critical care time 30 minutes ERIC GOTTLIEB MD Oct 05, 2020 10:07
--- NOTE | 2020-10-05 12:32 | PDOC ---
[facility] [facility] PROGRESS NOTE Date of Service DOS: DATE: 10/05/20 TIME: 12:29 Chief Complaint Chief Complaint Acute COVID-19 pneumonia Acute hypoxic respiratory failure Sepsis Bradycardia History of diabetes mellitus type 2 History of hypertension History of dyslipidemia Continue insulin regimen to 25 units twice daily Pulmonology consult Continue IV thiamine and vitamin C IV 4 mg dexamethasone Daily Pending ferritin, LDH, CRP, D-dimer labs Titrate O2 supplementation to maintain O2 saturation greater than 92% Lovenox for DVT prophylaxis Protonix GI prophylaxis ADA diet Full code Discussed with RN and SW Disposition patient management as above Surrogate decision maker is the Jenni Morrissey History of Present Illness History of Present Illness 65-year-old white male presenting today due to worsening cough and shortness of breath; patient also experiencing vomiting and diarrhea. Patient was recently diagnosed with COVID-19 on September 11 and has been doing well since that until a few days ago when his symptoms acutely worsened this morning. Has not received Covid vaccine. Close contacts at home have very similar symptoms. History notable for hypertension, type 2 diabetes, hyperlipidemia, GERD. 09/21/2020 No acute events overnight. Patient saturating 98% on 10 L nasal cannula. If patient requires increasing O2 requirements may consider pulmonology consult for further management. Continue Covid treatment protocol. Currently on Remdesivir. Patient's chart, labs, images were reviewed and discussed with RN 09/22/2020 No acute events overnight. Patient saturating 91% on 10 L nasal cannula. Patient sitting over the side of bed and doing well and saying that he does have some shortness of breath with ambulation. Combivent inhaler ordered today. Patient's chart, labs, images were reviewed and discussed with RN 09/23/2020 No acute events overnight. Patient is requiring increasing O2 requirements. Saturating 88% on 15 L nonrebreather and also nasal cannula. Patient may require BiPAP. Discussed with pulmonary for possible ICU transfer. Patient's chart, labs, images were reviewed and discussed with RN 09/24/2020: Patient transferred to the ICU yesterday and intubated. Afebrile, currently breathing FiO2 100%, PEEP 10. Final dose of remdesivir today. Chest x- ray yesterday showed interval development of extensive bilateral airspace disease. We will continue treatment with steroids and IV antibiotics. Critical care time 30 minutes spent reviewing charts, reviewing labs, reviewing imaging, discussion with RN. 09/25/2020: Afebrile. On vent with FiO2 80%, PEEP 9. He has completed course of remdesivir. Continue IV steroids for total dose 10 days and IV Zosyn. Critical care time 30 minutes spent reviewing charts, reviewing labs, reviewing imaging, discussion with RN. 09/26/2020: Afebrile. Remains on vent with FiO2 70%, PEEP 8. Completed remdesivir. Continue prophylactic IV Zosyn. Continue IV steroids for total of 10 days (steroid course to end 09/30 with slow taper). Critical care time 30 minutes spent reviewing charts, reviewing labs, reviewing imaging, discussion with RN. 09/27/2020: No acute events overnight. Afebrile. On vent with FiO2 70%, PEEP 8. Continue with IV antibiotics and steroids, with taper. Completed remdesivir. Critical care time 30 minutes spent reviewing charts, reviewing labs, reviewing imaging, discussion with RN. 09/28/2020: Afebrile. On vent with FiO2 90%, PEEP 8. Completed remdesivir. Continue IV antibiotics. Continue steroids to complete 10-day course (09/30/2020). KUB yesterday showed enteric tube tip projects over the body the stomach; bilateral parenchymal lung airspace opacities are seen. Critical care time 30 minutes spent reviewing charts, reviewing labs, reviewing imaging, discussion with RN. 09/29/2020: Afebrile. On vent with increased oxygen requirement, FiO2 100%, PEEP 8. Chest x-ray yesterday showed increasing bilateral airspace opacities throughout both lungs suggesting worsening infiltrates. Continue steroids to complete 10-day course (09/30/2020), and continue IV antibiotics. Critical care time 30 minutes spent reviewing charts, reviewing labs, reviewing imaging, discussion with RN. 09/30/2020: On vent with FiO2 90%, PEEP 8. Afebrile. Steroids have been increased to dexamethasone 20 mg for 5 days, 10 mg for 5 days (started 09/29 to be completed 10/09). Continue IV antibiotics. Critical care time 30 minutes spent reviewing charts, reviewing labs, reviewing imaging, discussion with RN. 10/01/2020 No acute events overnight. Patient saturating 97% on vent settings of 22/500/80/8. Currently sedated and intubated. Patient's chart, labs, images were reviewed and discussed with RN A total of 35 minutes of critical care time was spent in reviewing chart, labs, and images. Discussed with RN and KALEN. 10/02/2020 No acute events overnight. Patient saturating 95% on vent settings of 22/500/75/7. ABG expected at 7.4 /72/28. Currently intubated and sedated. Patient's chart, labs, images were reviewed and discussed with RN A total of 33 minutes of critical care time was spent in reviewing chart, labs, and images. Discussed with RN and SW. 10/03/2020 No acute events overnight. Patient saturating 94% on vent settings of 22/500/75/7. Improved sugar control. Patient's chart, labs, images were reviewed and discussed with RN A total of 33 minutes of critical care time was spent in reviewing chart, labs, and images. Discussed with RN and SW. 05/04/2020 No acute events overnight. Patient continues to be saturating 100% on vent settings of 22/500/65/7. Last ABG show pH of 7.5 //28. Adjustments to vent settings made by pulmonology. Patient's chart, labs, images were reviewed and discussed with RN A total of 34 minutes of critical care time was spent in reviewing chart, labs, and images. Discussed with RN and SW. 05/05/2020 No acute events overnight. Patient saturating 96% on vent settings of 20/500/65/7. Discussed prognosis with family. Prognosis is guarded at this time. In addition to my E/M visit, advance care planning done with A total time of 20 minutes was spent from 830 to 850 face to face in discussion with the family regarding their goals of care A total of 33 minutes of critical care time was spent in reviewing chart, labs, and images. Discussed with RN and KALEN. Vitals/I&O Vitals/I&O: Vital Signs Date Time Temp Pulse Resp B/P (MAP) Pulse Ox O2 Delivery O2 Flow Rate FiO2 10/05/20 11:26 99 Ventilator 10/05/20 11:00 61 20 92/45 (61) 10/05/20 08:00 99.7 99.7 10/05/20 03:01 4.0 I & O 10/04/20 10/04/20 10/05/20 15:00 23:00 07:00 Intake Total 340 ml 1981.45 ml 800 ml Output Total 750 ml 300 ml 650 ml Balance -410 ml 1681.45 ml 150 ml Physical Exam General: mild distress, Other (Intubated and sedated) Heart: Regular rate Lungs: Clear Abdomen: Normal bowel sounds Extremities: No clubbing Skin: No rashes, No significant lesion Labs Labs: Laboratory Tests Test 10/04/20 12:41 10/04/20 18:25 10/04/20 23:43 10/05/20 05:00 Glucose (Fingerstick) 144 mg/dL (70-99) 129 mg/dL (70-99) 106 mg/dL (70-99) White Blood Count 9.1 x10^3/uL (4.0-11.0) Red Blood Count 4.05 x10^6/uL (4.30-5.70) Hemoglobin 12.1 g/dL (13.0-17.5) Hematocrit 35.2 % (39.0-53.0) Mean Corpuscular Volume 87 fL (79-100) Mean Corpuscular Hemoglobin 30 pg (25-35) Mean Corpuscular Hemoglobin Concent 34 g/dL (31-37) Red Cell Distribution Width 13.9 % (11.5-14.5) Platelet Count 207 x10^3/uL (140-400) Neutrophils (%) (Auto) 66 % (31-73) Lymphocytes (%) (Auto) 21 % (24-48) Monocytes (%) (Auto) 11 % (0-9) Eosinophils (%) (Auto) 1 % (0-3) Basophils (%) (Auto) 1 % (0-3) Neutrophils # (Auto) 5.9 x10^3/uL (1.8-7.7) Lymphocytes # (Auto) 1.9 x10^3/uL (1.0-4.8) Monocytes # (Auto) 1.0 x10^3/uL (0.0-1.1) Eosinophils # (Auto) 0.1 x10^3/uL (0.0-0.7) Basophils # (Auto) 0.1 x10^3/uL (0.0-0.2) Sodium Level 141 mmol/L (136-145) Potassium Level 3.8 mmol/L (3.5-5.1) Chloride Level 105 mmol/L (98-107) Carbon Dioxide Level 30 mmol/L (21-32) Anion Gap 6 (6-14) Blood Urea Nitrogen 25 mg/dL (8-26) Creatinine 0.7 mg/dL (0.7-1.3) Estimated GFR (Cockcroft-Gault) 113.9 Glucose Level 123 mg/dL (70-99) Calcium Level 8.2 mg/dL (8.5-10.1) Test 10/05/20 08:28 10/05/20 11:23 O2 Saturation 98 % (92-99) Arterial Blood pH 7.43 (7.35-7.45) Arterial Blood pCO2 at Patient Temp 44 mmHg (35-46) Arterial Blood pO2 at Patient Temp 123 mmHg (65-108) Arterial Blood HCO3 29 mmol/L (21-28) Arterial Blood Base Excess 4 mmol/L (-3-3) FiO2 65 Glucose (Fingerstick) 148 mg/dL (70-99) Assessment and Plan Assessmemt and Plan Problems Medical Problems: (1) Bilateral pulmonary infiltrates on CXR Status: Acute (2) Fever Status: Acute (3) Hypoxia Status: Acute (4) Lab test positive for detection of COVID-19 virus Status: Acute Comment Review of Relevant I have reviewed the following items lukasz (where applicable) has been applied. Justifications for Admission Other Justification ARTHUR MCLEOD MD Oct 05, 2020 12:32
--- NOTE | 2020-10-05 13:04 | NUR ---
SS following up with discharge planning. SS reviewed pt chart and discussed with pt RN. Pt is currently on the vent at 50%. COVID19 positive. Pt on Propofol, Fentanyl, and Versed. Tube feeds. SS will continue to follow for discharge planning.
[2020-10-05] MEDS: SIMVASTATIN 20 MG TABLET PO SCH (20:21)
[2020-10-06] VITALS (24 sets, daily range): BP systolic 107–154; BP diastolic 46–67
[2020-10-06] MEDS: IV NORMAL SALINE 1000ML BAG 1,000 ML IV SCH ×2 (03:00→15:10)
[2020-10-06] MEDS: PROPOFOL 100 ML IV PRN ×3 (05:14→22:39)
[2020-10-06] MEDS: MIDAZOLAM 100mg/100ml NS BAG 100 ML IV PRN ×2 (05:18→17:13)
[2020-10-06] MEDS: INSULIN LISPRO 300 UNITS/3 ML VIAL. SQ SCH ×4 (06:00→17:16)
--- NOTE | 2020-10-06 07:05 | PDOC ---
PULMONARY PROGRESS NOTES DATE: 10/06/20 TIME: 07:02 Subjective Patient remains on vent support Afebrile sedated on prop fentanyl versed small ett secretion 50% FiO2 and 7 of PEEP. Vitals Vital Signs Date Time Temp Pulse Resp B/P (MAP) Pulse Ox O2 Delivery O2 Flow Rate FiO2 10/06/20 06:00 99.0 79 20 154/67 (96) 100 Ventilator 99.0 Comments Visual exam done due to COVID-19. intubated sedated RRR no accessory muscle use abd obese No skin rash, no leg edema Lungs: Clear Cardiovascular: S1 Abdomen: Soft Extremities: No Edema Labs Laboratory Tests Test 10/04/20 08:00 10/04/20 09:15 10/04/20 12:41 10/04/20 18:25 O2 Saturation 98 % (92-99) Arterial Blood pH 7.52 (7.35-7.45) Arterial Blood pCO2 at Patient Temp 36 mmHg (35-46) Arterial Blood pO2 at Patient Temp 113 mmHg (65-108) Arterial Blood HCO3 28 mmol/L (21-28) Arterial Blood Base Excess 5 mmol/L (-3-3) FiO2 75 White Blood Count 10.5 x10^3/uL (4.0-11.0) Red Blood Count 4.36 x10^6/uL (4.30-5.70) Hemoglobin 12.9 g/dL (13.0-17.5) Hematocrit 38.5 % (39.0-53.0) Mean Corpuscular Volume 88 fL (79-100) Mean Corpuscular Hemoglobin 30 pg (25-35) Mean Corpuscular Hemoglobin Concent 34 g/dL (31-37) Red Cell Distribution Width 13.6 % (11.5-14.5) Platelet Count 230 x10^3/uL (140-400) Neutrophils (%) (Auto) 71 % (31-73) Lymphocytes (%) (Auto) 18 % (24-48) Monocytes (%) (Auto) 10 % (0-9) Eosinophils (%) (Auto) 1 % (0-3) Basophils (%) (Auto) 1 % (0-3) Neutrophils # (Auto) 7.5 x10^3/uL (1.8-7.7) Lymphocytes # (Auto) 1.9 x10^3/uL (1.0-4.8) Monocytes # (Auto) 1.0 x10^3/uL (0.0-1.1) Eosinophils # (Auto) 0.1 x10^3/uL (0.0-0.7) Basophils # (Auto) 0.1 x10^3/uL (0.0-0.2) Sodium Level 140 mmol/L (136-145) Potassium Level 3.7 mmol/L (3.5-5.1) Chloride Level 104 mmol/L (98-107) Carbon Dioxide Level 33 mmol/L (21-32) Anion Gap 3 (6-14) Blood Urea Nitrogen 19 mg/dL (8-26) Creatinine 0.7 mg/dL (0.7-1.3) Estimated GFR (Cockcroft-Gault) 113.9 Glucose Level 135 mg/dL (70-99) Calcium Level 8.3 mg/dL (8.5-10.1) Glucose (Fingerstick) 144 mg/dL (70-99) 129 mg/dL (70-99) Test 10/04/20 23:43 10/05/20 05:00 10/05/20 08:28 10/05/20 11:23 Glucose (Fingerstick) 106 mg/dL (70-99) 148 mg/dL (70-99) White Blood Count 9.1 x10^3/uL (4.0-11.0) Red Blood Count 4.05 x10^6/uL (4.30-5.70) Hemoglobin 12.1 g/dL (13.0-17.5) Hematocrit 35.2 % (39.0-53.0) Mean Corpuscular Volume 87 fL (79-100) Mean Corpuscular Hemoglobin 30 pg (25-35) Mean Corpuscular Hemoglobin Concent 34 g/dL (31-37) Red Cell Distribution Width 13.9 % (11.5-14.5) Platelet Count 207 x10^3/uL (140-400) Neutrophils (%) (Auto) 66 % (31-73) Lymphocytes (%) (Auto) 21 % (24-48) Monocytes (%) (Auto) 11 % (0-9) Eosinophils (%) (Auto) 1 % (0-3) Basophils (%) (Auto) 1 % (0-3) Neutrophils # (Auto) 5.9 x10^3/uL (1.8-7.7) Lymphocytes # (Auto) 1.9 x10^3/uL (1.0-4.8) Monocytes # (Auto) 1.0 x10^3/uL (0.0-1.1) Eosinophils # (Auto) 0.1 x10^3/uL (0.0-0.7) Basophils # (Auto) 0.1 x10^3/uL (0.0-0.2) Sodium Level 141 mmol/L (136-145) Potassium Level 3.8 mmol/L (3.5-5.1) Chloride Level 105 mmol/L (98-107) Carbon Dioxide Level 30 mmol/L (21-32) Anion Gap 6 (6-14) Blood Urea Nitrogen 25 mg/dL (8-26) Creatinine 0.7 mg/dL (0.7-1.3) Estimated GFR (Cockcroft-Gault) 113.9 Glucose Level 123 mg/dL (70-99) Calcium Level 8.2 mg/dL (8.5-10.1) O2 Saturation 98 % (92-99) Arterial Blood pH 7.43 (7.35-7.45) Arterial Blood pCO2 at Patient Temp 44 mmHg (35-46) Arterial Blood pO2 at Patient Temp 123 mmHg (65-108) Arterial Blood HCO3 29 mmol/L (21-28) Arterial Blood Base Excess 4 mmol/L (-3-3) FiO2 65 Test 10/05/20 17:10 10/05/20 20:25 10/06/20 00:17 10/06/20 06:04 Glucose (Fingerstick) 103 mg/dL (70-99) 113 mg/dL (70-99) 107 mg/dL (70-99) 149 mg/dL (70-99) Laboratory Tests Test 10/05/20 08:28 10/05/20 11:23 10/05/20 17:10 10/05/20 20:25 O2 Saturation 98 % (92-99) Arterial Blood pH 7.43 (7.35-7.45) Arterial Blood pCO2 at Patient Temp 44 mmHg (35-46) Arterial Blood pO2 at Patient Temp 123 mmHg (65-108) Arterial Blood HCO3 29 mmol/L (21-28) Arterial Blood Base Excess 4 mmol/L (-3-3) FiO2 65 Glucose (Fingerstick) 148 mg/dL (70-99) 103 mg/dL (70-99) 113 mg/dL (70-99) Test 10/06/20 00:17 10/06/20 06:04 Glucose (Fingerstick) 107 mg/dL (70-99) 149 mg/dL (70-99) Medications Active Scripts Medications Dose Route/Sig Max Daily Dose Days Date Category Icosapent Ethyl 1 Gm Capsule 2 Cap PO BID 09/20/20 Reported Metformin Hcl 1,000 Mg Tablet 1 Tab PO BID 09/20/20 Reported Rybelsus (Semaglutide) 7 Mg Tablet 1 Tab PO DAILY 09/20/20 Reported Farxiga (Dapagliflozin Propanediol) 10 Mg Tablet 1 Tab PO DAILY 09/20/20 Reported Trelegy Ellipta 100-62.5-25 (Fluticasone/Umeclidin/Vilanter) 1 Each Blst.w.dev 1 Puff INH DAILY 09/20/20 Reported Benzonatate 200 Mg Capsule 1 Cap PO TID PRN 09/20/20 Reported Montelukast Sodium 10 Mg Tablet 1 Tab PO DAILY 09/20/20 Reported Loratadine 10 Mg Tablet 1 Tab PO DAILY 09/20/20 Reported Fluticasone Propionate Nasal Hastings (Fluticasone Propionate) 16 Gm Hastings.susp 1 Sprays NS BID 09/20/20 Reported Simvastatin 20 Mg Tablet 1 Tab PO QHS 11/20/15 Reported Comments Chest x-ray reviewed 10/05/2020 Diffuse bilateral unchanged interstitial infiltrates related to Covid Impression . 1. Acute hypoxic respiratory failure secondary to COVID-19 viral pneumonia/acute lung injury.---intubated 09/23/20 2. Abnormal chest x-ray consistent with mild infiltrates favoring COVID-19 viral pneumonia. 3. Leukopenia and thrombocytopenia due to COVID-19 viral pneumonia.--improved 4. No significant tobacco history. Plan . Updated 10/06/2020 Continue current ventilatory support setting reviewed /7/50%, wean peep fio2 as tolerated Follow chest x-ray/ABG,--make changes as appropriate elevate hob Status post remdesivir --Patient has completed full course of steroids as well Continue tube feeding for nutritional support DVT/GI prophylaxis: Lovenox Discussed with RN and RT Once down to 40% oxygen and 5 of PEEP we will start weaning sedation. Updated 10/05/2020 Continue current ventilatory support 22/500/75/8, wean as tolerated Follow chest x-ray/ABG,--reduce FiO2 to 50%, current PEEP is at 7. Status post remdesivir --Patient has completed full course of steroids as well Continue tube feeding for nutritional support DVT/GI prophylaxis: Lovenox Discussed with RN and RT Patient is clinically improving. Once down to 40% oxygen and 5 of PEEP we will start weaning sedation. Critical care time 30 minutes Updated 10/04/2020 Continue current ventilatory support 22/500/75/8, wean as tolerated Follow chest x-ray/ABG,--reduce FiO2 to 65%, and reduce respiratory rate to 20 Status post remdesivir --Patient has completed full course of steroids as well Continue tube feeding for nutritional support DVT/GI prophylaxis: Lovenox Discussed with RN and RT Critical care time 30 minutes ALISHA RUELAS MD Oct 06, 2020 07:05
[2020-10-06 08:04] LABS: BASE EXCESS ABG 5 mmol/L (-3-3); HCO3 ABG 31 mmol/L (21-28); PCO2 ABG 48 mmHg (35-46); PO2 ABG 83 mmHg (65-108); SAT O2 ABG 95 % (92-99)
[2020-10-06] MEDS: ASCORBIC ACID 1,000 MG TABLET PO SCH ×3 (08:40→20:19)
[2020-10-06] MEDS: ZINC SULFATE 220 MG CAPSULE. PO SCH (08:40)
[2020-10-06] MEDS: MULTIVITAMINS,THERAPEUTIC 5 ML ORAL LIQUID. PEG SCH (08:40)
[2020-10-06] MEDS: ASPIRIN CHEWABLE 81 MG TABLET. PO SCH (08:40)
[2020-10-06] MEDS: ENOXAPARIN 40 MG/0.4 ML SYRINGE. SQ SCH ×2 (08:40→20:20)
[2020-10-06] MEDS: SENNOSIDES/DOCUSATE 8.6/50MG TABLET. PO SCH ×2 (08:40→20:19)
[2020-10-06] MEDS: PANTOPRAZOLE IV PUSH 40 MG VIAL. IVP SCH (08:40)
[2020-10-06 09:03] LABS: FIO2 ABG 50/VENT
[2020-10-06] MEDS: INSULIN GLARGINE SYRINGE. SQ SCH ×2 (11:38→20:21)
--- NOTE | 2020-10-06 12:47 | PDOC ---
[facility] [facility] PROGRESS NOTE Date of Service DOS: DATE: 10/06/20 TIME: 12:46 Chief Complaint Chief Complaint Acute COVID-19 pneumonia Acute hypoxic respiratory failure Sepsis Bradycardia History of diabetes mellitus type 2 History of hypertension History of dyslipidemia Continue insulin regimen to 25 units twice daily Pulmonology consult Continue IV thiamine and vitamin C IV 4 mg dexamethasone Daily Pending ferritin, LDH, CRP, D-dimer labs Titrate O2 supplementation to maintain O2 saturation greater than 92% Lovenox for DVT prophylaxis Protonix GI prophylaxis ADA diet Full code Discussed with RN and SW Disposition patient management as above Surrogate decision maker is the Jenni Morrissey History of Present Illness History of Present Illness 65-year-old white male presenting today due to worsening cough and shortness of breath; patient also experiencing vomiting and diarrhea. Patient was recently diagnosed with COVID-19 on September 11 and has been doing well since that until a few days ago when his symptoms acutely worsened this morning. Has not received Covid vaccine. Close contacts at home have very similar symptoms. History notable for hypertension, type 2 diabetes, hyperlipidemia, GERD. 09/21/2020 No acute events overnight. Patient saturating 98% on 10 L nasal cannula. If patient requires increasing O2 requirements may consider pulmonology consult for further management. Continue Covid treatment protocol. Currently on Remdesivir. Patient's chart, labs, images were reviewed and discussed with RN 09/22/2020 No acute events overnight. Patient saturating 91% on 10 L nasal cannula. Patient sitting over the side of bed and doing well and saying that he does have some shortness of breath with ambulation. Combivent inhaler ordered today. Patient's chart, labs, images were reviewed and discussed with RN 09/23/2020 No acute events overnight. Patient is requiring increasing O2 requirements. Saturating 88% on 15 L nonrebreather and also nasal cannula. Patient may require BiPAP. Discussed with pulmonary for possible ICU transfer. Patient's chart, labs, images were reviewed and discussed with RN 09/24/2020: Patient transferred to the ICU yesterday and intubated. Afebrile, currently breathing FiO2 100%, PEEP 10. Final dose of remdesivir today. Chest x- ray yesterday showed interval development of extensive bilateral airspace disease. We will continue treatment with steroids and IV antibiotics. Critical care time 30 minutes spent reviewing charts, reviewing labs, reviewing imaging, discussion with RN. 09/25/2020: Afebrile. On vent with FiO2 80%, PEEP 9. He has completed course of remdesivir. Continue IV steroids for total dose 10 days and IV Zosyn. Critical care time 30 minutes spent reviewing charts, reviewing labs, reviewing imaging, discussion with RN. 09/26/2020: Afebrile. Remains on vent with FiO2 70%, PEEP 8. Completed remdesivir. Continue prophylactic IV Zosyn. Continue IV steroids for total of 10 days (steroid course to end 09/30 with slow taper). Critical care time 30 minutes spent reviewing charts, reviewing labs, reviewing imaging, discussion with RN. 09/27/2020: No acute events overnight. Afebrile. On vent with FiO2 70%, PEEP 8. Continue with IV antibiotics and steroids, with taper. Completed remdesivir. Critical care time 30 minutes spent reviewing charts, reviewing labs, reviewing imaging, discussion with RN. 09/28/2020: Afebrile. On vent with FiO2 90%, PEEP 8. Completed remdesivir. Continue IV antibiotics. Continue steroids to complete 10-day course (09/30/2020). KUB yesterday showed enteric tube tip projects over the body the stomach; bilateral parenchymal lung airspace opacities are seen. Critical care time 30 minutes spent reviewing charts, reviewing labs, reviewing imaging, discussion with RN. 09/29/2020: Afebrile. On vent with increased oxygen requirement, FiO2 100%, PEEP 8. Chest x-ray yesterday showed increasing bilateral airspace opacities throughout both lungs suggesting worsening infiltrates. Continue steroids to complete 10-day course (09/30/2020), and continue IV antibiotics. Critical care time 30 minutes spent reviewing charts, reviewing labs, reviewing imaging, discussion with RN. 09/30/2020: On vent with FiO2 90%, PEEP 8. Afebrile. Steroids have been increased to dexamethasone 20 mg for 5 days, 10 mg for 5 days (started 09/29 to be completed 10/09). Continue IV antibiotics. Critical care time 30 minutes spent reviewing charts, reviewing labs, reviewing imaging, discussion with RN. 10/01/2020 No acute events overnight. Patient saturating 97% on vent settings of 22/500/80/8. Currently sedated and intubated. Patient's chart, labs, images were reviewed and discussed with RN A total of 35 minutes of critical care time was spent in reviewing chart, labs, and images. Discussed with RN and KALEN. 10/02/2020 No acute events overnight. Patient saturating 95% on vent settings of 22/500/75/7. ABG expected at 7.4 /72/28. Currently intubated and sedated. Patient's chart, labs, images were reviewed and discussed with RN A total of 33 minutes of critical care time was spent in reviewing chart, labs, and images. Discussed with RN and KALEN. 10/03/2020 No acute events overnight. Patient saturating 94% on vent settings of 22/500/75/7. Improved sugar control. Patient's chart, labs, images were reviewed and discussed with RN A total of 33 minutes of critical care time was spent in reviewing chart, labs, and images. Discussed with RN and KALEN. 05/04/2020 No acute events overnight. Patient continues to be saturating 100% on vent settings of 22/500/65/7. Last ABG show pH of 7.5 /28. Adjustments to vent settings made by pulmonology. Patient's chart, labs, images were reviewed and discussed with RN A total of 34 minutes of critical care time was spent in reviewing chart, labs, and images. Discussed with RN and KALEN. 05/05/2020 No acute events overnight. Patient saturating 96% on vent settings of 20/500/65/7. Discussed prognosis with family. Prognosis is guarded at this time. In addition to my E/M visit, advance care planning done with A total time of 20 minutes was spent from 830 to 850 face to face in discussion with the family regarding their goals of care A total of 33 minutes of critical care time was spent in reviewing chart, labs, and images. Discussed with RN and KALEN. 05/06/2020 No acute events overnight. Patient saturating 95% on vent settings of 20/ 500/50/6. No other concerns from nursing at this time. Patient's chart, labs, images were reviewed and discussed with RN A total of 35 minutes of critical care time was spent in reviewing chart, labs, and images. Discussed with RN and KALEN. Vitals/I&O Vitals/I&O: Vital Signs Date Time Temp Pulse Resp B/P (MAP) Pulse Ox O2 Delivery O2 Flow Rate FiO2 10/06/20 12:00 Mechanical Ventilator 10/06/20 12:00 99.9 69 20 120/55 (76) 95 99.9 I & O 10/05/20 10/05/20 10/06/20 15:00 23:00 07:00 Intake Total 340 ml 2844.1 ml 1912.53 ml Output Total 675 ml 1075 ml 750 ml Balance -335 ml 1769.1 ml 1162.53 ml Physical Exam General: mild distress, Other (Intubated and sedated) Heart: Regular rate Lungs: Clear Abdomen: Normal bowel sounds Extremities: No clubbing Skin: No rashes, No significant lesion Labs Labs: Laboratory Tests Test 10/05/20 17:10 10/05/20 20:25 10/06/20 00:17 10/06/20 06:04 Glucose (Fingerstick) 103 mg/dL (70-99) 113 mg/dL (70-99) 107 mg/dL (70-99) 149 mg/dL (70-99) Test 10/06/20 07:55 10/06/20 11:36 O2 Saturation 95 % (92-99) Arterial Blood pH 7.42 (7.35-7.45) Arterial Blood pCO2 at Patient Temp 48 mmHg (35-46) Arterial Blood pO2 at Patient Temp 83 mmHg (65-108) Arterial Blood HCO3 31 mmol/L (21-28) Arterial Blood Base Excess 5 mmol/L (-3-3) FiO2 50/vent Glucose (Fingerstick) 184 mg/dL (70-99) Assessment and Plan Assessmemt and Plan Problems Medical Problems: (1) Bilateral pulmonary infiltrates on CXR Status: Acute (2) Fever Status: Acute (3) Hypoxia Status: Acute (4) Lab test positive for detection of COVID-19 virus Status: Acute Comment Review of Relevant I have reviewed the following items lukasz (where applicable) has been applied. Justifications for Admission Other Justification ARTHUR MCLEOD MD Oct 06, 2020 12:47
[2020-10-06] MEDS: fentaNYL HIGH DOSE PCA 55 ML IV PRN (15:11)
[2020-10-06] MEDS: SIMVASTATIN 20 MG TABLET PO SCH (20:19)
[2020-10-07] VITALS (24 sets, daily range): BP systolic 109–135; BP diastolic 48–61
[2020-10-07] MEDS: INSULIN LISPRO 300 UNITS/3 ML VIAL. SQ SCH ×4 (06:00→18:40)
--- NOTE | 2020-10-07 06:40 | PDOC ---
PULMONARY PROGRESS NOTES DATE: 10/07/20 TIME: 06:40 Subjective Patient remains on vent support Afebrile sedated on prop fentanyl versed small ett secretion 50% FiO2 and 6 of PEEP. Vitals Vital Signs Date Time Temp Pulse Resp B/P (MAP) Pulse Ox O2 Delivery O2 Flow Rate FiO2 10/07/20 06:00 66 20 135/59 (84) 96 Ventilator 10/07/20 05:00 99.7 99.7 Comments ros unable to obtain on vent sedated HEENT: Other (nc at perrl nose clear orally intubated neck no lad no thyromegaly ) Lungs: Crackles Cardiovascular: S1, S2 Abdomen: Soft, Non-tender Extremities: No Edema Skin: Warm Labs Laboratory Tests Test 10/05/20 08:28 10/05/20 11:23 10/05/20 17:10 10/05/20 20:25 O2 Saturation 98 % (92-99) Arterial Blood pH 7.43 (7.35-7.45) Arterial Blood pCO2 at Patient Temp 44 mmHg (35-46) Arterial Blood pO2 at Patient Temp 123 mmHg (65-108) Arterial Blood HCO3 29 mmol/L (21-28) Arterial Blood Base Excess 4 mmol/L (-3-3) FiO2 65 Glucose (Fingerstick) 148 mg/dL (70-99) 103 mg/dL (70-99) 113 mg/dL (70-99) Test 10/06/20 00:17 10/06/20 06:04 10/06/20 07:55 10/06/20 11:36 Glucose (Fingerstick) 107 mg/dL (70-99) 149 mg/dL (70-99) 184 mg/dL (70-99) O2 Saturation 95 % (92-99) Arterial Blood pH 7.42 (7.35-7.45) Arterial Blood pCO2 at Patient Temp 48 mmHg (35-46) Arterial Blood pO2 at Patient Temp 83 mmHg (65-108) Arterial Blood HCO3 31 mmol/L (21-28) Arterial Blood Base Excess 5 mmol/L (-3-3) FiO2 50/vent Test 10/06/20 17:15 10/06/20 19:57 10/07/20 00:17 10/07/20 06:05 Glucose (Fingerstick) 165 mg/dL (70-99) 138 mg/dL (70-99) 129 mg/dL (70-99) 148 mg/dL (70-99) Laboratory Tests Test 10/06/20 07:55 10/06/20 11:36 10/06/20 17:15 10/06/20 19:57 O2 Saturation 95 % (92-99) Arterial Blood pH 7.42 (7.35-7.45) Arterial Blood pCO2 at Patient Temp 48 mmHg (35-46) Arterial Blood pO2 at Patient Temp 83 mmHg (65-108) Arterial Blood HCO3 31 mmol/L (21-28) Arterial Blood Base Excess 5 mmol/L (-3-3) FiO2 50/vent Glucose (Fingerstick) 184 mg/dL (70-99) 165 mg/dL (70-99) 138 mg/dL (70-99) Test 10/07/20 00:17 10/07/20 06:05 Glucose (Fingerstick) 129 mg/dL (70-99) 148 mg/dL (70-99) Medications Active Scripts Medications Dose Route/Sig Max Daily Dose Days Date Category Icosapent Ethyl 1 Gm Capsule 2 Cap PO BID 09/20/20 Reported Metformin Hcl 1,000 Mg Tablet 1 Tab PO BID 09/20/20 Reported Rybelsus (Semaglutide) 7 Mg Tablet 1 Tab PO DAILY 09/20/20 Reported Farxiga (Dapagliflozin Propanediol) 10 Mg Tablet 1 Tab PO DAILY 09/20/20 Reported Trelegy Ellipta 100-62.5-25 (Fluticasone/Umeclidin/Vilanter) 1 Each Blst.w.dev 1 Puff INH DAILY 09/20/20 Reported Benzonatate 200 Mg Capsule 1 Cap PO TID PRN 09/20/20 Reported Montelukast Sodium 10 Mg Tablet 1 Tab PO DAILY 09/20/20 Reported Loratadine 10 Mg Tablet 1 Tab PO DAILY 09/20/20 Reported Fluticasone Propionate Nasal [place] (Fluticasone Propionate) 16 Gm [place].susp 1 Sprays NS BID 09/20/20 Reported Simvastatin 20 Mg Tablet 1 Tab PO QHS 11/20/15 Reported Comments Chest x-ray reviewed 10/05/2020 Diffuse bilateral unchanged interstitial infiltrates related to Covid Impression . 1. Acute hypoxic respiratory failure secondary to COVID-19 viral pneumonia/acute lung injury.---intubated 09/23/20 2. Abnormal chest x-ray consistent with mild infiltrates favoring COVID-19 viral pneumonia. 3. Leukopenia and thrombocytopenia due to COVID-19 viral pneumonia.--improved 4. No significant tobacco history. Plan . Updated 10/07/2020 Continue current ventilatory support setting reviewed 22/500/6/50%, wean peep fio2 as tolerated decrease sedation sbt when on peep 5 fio2 50% Follow chest x-ray/ABG,--make changes as appropriate elevate hob Status post remdesivir --Patient has completed full course of steroids as well Continue tube feeding for nutritional support DVT/GI prophylaxis: Lovenox Discussed with RN and RT Updated 10/06/2020 Continue current ventilatory support setting reviewed 22/500/7/50%, wean peep fio2 as tolerated Follow chest x-ray/ABG,--make changes as appropriate elevate hob Status post remdesivir --Patient has completed full course of steroids as well Continue tube feeding for nutritional support DVT/GI prophylaxis: Lovenox Discussed with RN and RT Once down to 40% oxygen and 5 of PEEP we will start weaning sedation. Updated 10/05/2020 Continue current ventilatory support 22/500/75/8, wean as tolerated Follow chest x-ray/ABG,--reduce FiO2 to 50%, current PEEP is at 7. Status post remdesivir --Patient has completed full course of steroids as well Continue tube feeding for nutritional support DVT/GI prophylaxis: Lovenox Discussed with RN and RT Patient is clinically improving. Once down to 40% oxygen and 5 of PEEP we will start weaning sedation. Critical care time 30 minutes Updated 10/04/2020 Continue current ventilatory support 22/500/75/8, wean as tolerated Follow chest x-ray/ABG,--reduce FiO2 to 65%, and reduce respiratory rate to 20 Status post remdesivir --Patient has completed full course of steroids as well Continue tube feeding for nutritional support DVT/GI prophylaxis: Lovenox Discussed with RN and RT Critical care time 30 minutes ALISHA RUELAS MD Oct 07, 2020 06:40
[2020-10-07] MEDS: ZINC SULFATE 220 MG CAPSULE. PO SCH (07:46)
[2020-10-07] MEDS: ASCORBIC ACID 1,000 MG TABLET PO SCH ×3 (07:46→21:01)
[2020-10-07] MEDS: MULTIVITAMINS,THERAPEUTIC 5 ML ORAL LIQUID. PEG SCH (07:46)
[2020-10-07] MEDS: ASPIRIN CHEWABLE 81 MG TABLET. PO SCH (07:47)
[2020-10-07] MEDS: PANTOPRAZOLE IV PUSH 40 MG VIAL. IVP SCH (07:47)
[2020-10-07] MEDS: ENOXAPARIN 40 MG/0.4 ML SYRINGE. SQ SCH ×2 (07:48→21:23)
[2020-10-07] MEDS: SENNOSIDES/DOCUSATE 8.6/50MG TABLET. PO SCH ×2 (07:50→21:01)
[2020-10-07 07:55] LABS: BASE EXCESS ABG 3 mmol/L (-3-3); HCO3 ABG 28 mmol/L (21-28); PCO2 ABG 43 mmHg (35-46); PO2 ABG 67 mmHg (65-108); SAT O2 ABG 93 % (92-99)
[2020-10-07 08:37] LABS: FIO2 ABG 50
[2020-10-07] MEDS: PROPOFOL 100 ML IV PRN ×2 (09:09→16:49)
[2020-10-07] MEDS: fentaNYL HIGH DOSE PCA 55 ML IV PRN (09:52)
[2020-10-07] MEDS: INSULIN GLARGINE SYRINGE. SQ SCH ×2 (09:53→21:02)
--- NOTE | 2020-10-07 10:47 | PDOC ---
[employer] PROGRESS NOTE Date of Service DOS: DATE: 10/07/20 TIME: 10:45 Chief Complaint Chief Complaint Acute COVID-19 pneumonia Acute hypoxic respiratory failure Sepsis Bradycardia History of diabetes mellitus type 2 History of hypertension History of dyslipidemia Continue insulin regimen to 25 units twice daily Pulmonology consult Continue IV thiamine and vitamin C IV 4 mg dexamethasone Daily Pending ferritin, LDH, CRP, D-dimer labs Titrate O2 supplementation to maintain O2 saturation greater than 92% Lovenox for DVT prophylaxis Protonix GI prophylaxis ADA diet Full code Discussed with RN and SW Disposition patient management as above Surrogate decision maker is the Jenni Morrissey History of Present Illness History of Present Illness 65-year-old white male presenting today due to worsening cough and shortness of breath; patient also experiencing vomiting and diarrhea. Patient was recently diagnosed with COVID-19 on September 11 and has been doing well since that until a few days ago when his symptoms acutely worsened this morning. Has not received Covid vaccine. Close contacts at home have very similar symptoms. History notable for hypertension, type 2 diabetes, hyperlipidemia, GERD. 09/21/2020 No acute events overnight. Patient saturating 98% on 10 L nasal cannula. If patient requires increasing O2 requirements may consider pulmonology consult for further management. Continue Covid treatment protocol. Currently on Remdesivir. Patient's chart, labs, images were reviewed and discussed with RN 09/22/2020 No acute events overnight. Patient saturating 91% on 10 L nasal cannula. Patient sitting over the side of bed and doing well and saying that he does have some shortness of breath with ambulation. Combivent inhaler ordered today. Patient's chart, labs, images were reviewed and discussed with RN 09/23/2020 No acute events overnight. Patient is requiring increasing O2 requirements. Saturating 88% on 15 L nonrebreather and also nasal cannula. Patient may require BiPAP. Discussed with pulmonary for possible ICU transfer. Patient's chart, labs, images were reviewed and discussed with RN 09/24/2020: Patient transferred to the ICU yesterday and intubated. Afebrile, currently breathing FiO2 100%, PEEP 10. Final dose of remdesivir today. Chest x- ray yesterday showed interval development of extensive bilateral airspace disease. We will continue treatment with steroids and IV antibiotics. Critical care time 30 minutes spent reviewing charts, reviewing labs, reviewing imaging, discussion with RN. 09/25/2020: Afebrile. On vent with FiO2 80%, PEEP 9. He has completed course of remdesivir. Continue IV steroids for total dose 10 days and IV Zosyn. Critical care time 30 minutes spent reviewing charts, reviewing labs, reviewing imaging, discussion with RN. 09/26/2020: Afebrile. Remains on vent with FiO2 70%, PEEP 8. Completed remdesivir. Continue prophylactic IV Zosyn. Continue IV steroids for total of 10 days (steroid course to end 09/30 with slow taper). Critical care time 30 minutes spent reviewing charts, reviewing labs, reviewing imaging, discussion with RN. 09/27/2020: No acute events overnight. Afebrile. On vent with FiO2 70%, PEEP 8. Continue with IV antibiotics and steroids, with taper. Completed remdesivir. Critical care time 30 minutes spent reviewing charts, reviewing labs, reviewing imaging, discussion with RN. 09/28/2020: Afebrile. On vent with FiO2 90%, PEEP 8. Completed remdesivir. Continue IV antibiotics. Continue steroids to complete 10-day course (09/30/2020). KUB yesterday showed enteric tube tip projects over the body the stomach; bilateral parenchymal lung airspace opacities are seen. Critical care time 30 minutes spent reviewing charts, reviewing labs, reviewing imaging, discussion with RN. 09/29/2020: Afebrile. On vent with increased oxygen requirement, FiO2 100%, PEEP 8. Chest x-ray yesterday showed increasing bilateral airspace opacities throughout both lungs suggesting worsening infiltrates. Continue steroids to complete 10-day course (09/30/2020), and continue IV antibiotics. Critical care time 30 minutes spent reviewing charts, reviewing labs, reviewing imaging, discussion with RN. 09/30/2020: On vent with FiO2 90%, PEEP 8. Afebrile. Steroids have been increased to dexamethasone 20 mg for 5 days, 10 mg for 5 days (started 09/29 to be completed 10/09). Continue IV antibiotics. Critical care time 30 minutes spent reviewing charts, reviewing labs, reviewing imaging, discussion with RN. 10/01/2020 No acute events overnight. Patient saturating 97% on vent settings of 22/500/80/8. Currently sedated and intubated. Patient's chart, labs, images were reviewed and discussed with RN A total of 35 minutes of critical care time was spent in reviewing chart, labs, and images. Discussed with RN and KALEN. 10/02/2020 No acute events overnight. Patient saturating 95% on vent settings of 22/500/75/7. ABG expected at 7.4 /72/28. Currently intubated and sedated. Patient's chart, labs, images were reviewed and discussed with RN A total of 33 minutes of critical care time was spent in reviewing chart, labs, and images. Discussed with RN and KALEN. 10/03/2020 No acute events overnight. Patient saturating 94% on vent settings of 22/500/75/7. Improved sugar control. Patient's chart, labs, images were reviewed and discussed with RN A total of 33 minutes of critical care time was spent in reviewing chart, labs, and images. Discussed with RN and KALEN. 05/04/2020 No acute events overnight. Patient continues to be saturating 100% on vent settings of 22/500/65/7. Last ABG show pH of 7.5 /28. Adjustments to vent settings made by pulmonology. Patient's chart, labs, images were reviewed and discussed with RN A total of 34 minutes of critical care time was spent in reviewing chart, labs, and images. Discussed with RN and KALEN. 05/05/2020 No acute events overnight. Patient saturating 96% on vent settings of 20/500/65/7. Discussed prognosis with family. Prognosis is guarded at this time. In addition to my E/M visit, advance care planning done with A total time of 20 minutes was spent from 830 to 850 face to face in discussion with the family regarding their goals of care A total of 33 minutes of critical care time was spent in reviewing chart, labs, and images. Discussed with RN and KALEN. 05/06/2020 No acute events overnight. Patient saturating 95% on vent settings of 20/ 500/50/6. No other concerns from nursing at this time. Patient's chart, labs, images were reviewed and discussed with RN A total of 35 minutes of critical care time was spent in reviewing chart, labs, and images. Discussed with RN and KALEN. 05/07/2020 No acute events overnight. Patient saturating 96% on vent settings of 20/500/50/6. T-max of 100.3. Patient's chart, labs, images were reviewed and discussed with RN A total of 33 minutes of critical care time was spent in reviewing chart, labs, and images. Discussed with RN and SW. Vitals/I&O Vitals/I&O: Vital Signs Date Time Temp Pulse Resp B/P (MAP) Pulse Ox O2 Delivery O2 Flow Rate FiO2 10/07/20 10:00 60 20 118/57 (77) 97 Ventilator 10/07/20 08:00 99.2 99.2 I & O 10/06/20 10/06/20 10/07/20 15:00 23:00 07:00 Intake Total 240 ml 1896 ml 1773.05 ml Output Total 600 ml 725 ml 425 ml Balance -360 ml 1171 ml 1348.05 ml Physical Exam General: Other (Intubated and sedated) Heart: Regular rate Lungs: Crackles Abdomen: Normal bowel sounds Extremities: No clubbing Skin: No rashes, No significant lesion Labs Labs: Laboratory Tests Test 10/06/20 11:36 10/06/20 17:15 10/06/20 19:57 10/07/20 00:17 Glucose (Fingerstick) 184 mg/dL (70-99) 165 mg/dL (70-99) 138 mg/dL (70-99) 129 mg/dL (70-99) Test 10/07/20 06:05 10/07/20 07:50 Glucose (Fingerstick) 148 mg/dL (70-99) O2 Saturation 93 % (92-99) Arterial Blood pH 7.43 (7.35-7.45) Arterial Blood pCO2 at Patient Temp 43 mmHg (35-46) Arterial Blood pO2 at Patient Temp 67 mmHg (65-108) Arterial Blood HCO3 28 mmol/L (21-28) Arterial Blood Base Excess 3 mmol/L (-3-3) FiO2 50 Assessment and Plan Assessmemt and Plan Problems Medical Problems: (1) Bilateral pulmonary infiltrates on CXR Status: Acute (2) Fever Status: Acute (3) Hypoxia Status: Acute (4) Lab test positive for detection of COVID-19 virus Status: Acute Comment Review of Relevant I have reviewed the following items lukasz (where applicable) has been applied. Justifications for Admission Other Justification ARTHUR MCLEOD MD Oct 07, 2020 10:46
[2020-10-07] MEDS: NYSTATIN TOPICAL POWDER 15GM BOTTLE. TP SCH ×2 (12:03→21:24)
[2020-10-07] MEDS: IV NORMAL SALINE 1000ML BAG 1,000 ML IV SCH (12:04)
[2020-10-07] MEDS: MIDAZOLAM 100mg/100ml NS BAG 100 ML IV PRN (13:40)
[2020-10-07] MEDS: SIMVASTATIN 20 MG TABLET PO SCH (21:01)
[2020-10-08] VITALS (24 sets, daily range): BP systolic 96–165; BP diastolic 45–77
[2020-10-08] MEDS: PROPOFOL 100 ML IV PRN ×4 (00:50→23:59)
[2020-10-08] MEDS: INSULIN LISPRO 300 UNITS/3 ML VIAL. SQ SCH ×5 (00:51→23:58)
[2020-10-08] MEDS: MIDAZOLAM 100mg/100ml NS BAG 100 ML IV PRN ×2 (03:27→20:48)
[2020-10-08 06:26] LABS: BASO # 0.1 x10^3/uL (0.0-0.2); BASO % 1 % (0-3); EOS # 0.1 x10^3/uL (0.0-0.7); EOS % 2 % (0-3); HEMATOCRIT 30.2 % (39.0-53.0); HEMOGLOBIN 10.1 g/dL (13.0-17.5); LYMPH % 12 % (24-48); MEAN CORPUSCULAR HEMOGLOBIN 30 pg (25-35); MEAN CORPUSCULAR HGB CONC 34 g/dL (31-37); MEAN CORPUSCULAR VOLUME 89 fL (79-100); MONO % 13 % (0-9); NEUT # 5.7 x10^3/uL (1.8-7.7); NEUT % 72 % (31-73); PLATELET COUNT 140 x10^3/uL (140-400); RED BLOOD COUNT 3.38 x10^6/uL (4.30-5.70); RED CELL DISTRIBUTION WIDTH 14.2 % (11.5-14.5); WHITE BLOOD COUNT 7.9 x10^3/uL (4.0-11.0)
[2020-10-08 06:47] LABS: CALCIUM 7.9 mg/dL (8.5-10.1); CREATININE 0.7 mg/dL (0.7-1.3); GFR 113.9; MAGNESIUM 1.7 mg/dL (1.8-2.4); PHOSPHORUS 4.1 mg/dL (2.6-4.7); POTASSIUM 3.7 mmol/L (3.5-5.1)
[2020-10-08] MEDS: IV NORMAL SALINE 1000ML BAG 1,000 ML IV SCH (07:28)
[2020-10-08 08:06] LABS: BASE EXCESS ABG 3 mmol/L (-3-3); HCO3 ABG 27 mmol/L (21-28); PCO2 ABG 39 mmHg (35-46); PO2 ABG 67 mmHg (65-108); SAT O2 ABG 93 % (92-99)
[2020-10-08 08:08] LABS: FIO2 ABG 50
[2020-10-08] MEDS: ENOXAPARIN 40 MG/0.4 ML SYRINGE. SQ SCH ×2 (08:35→20:49)
[2020-10-08] MEDS: PANTOPRAZOLE IV PUSH 40 MG VIAL. IVP SCH (08:35)
[2020-10-08] MEDS: ZINC SULFATE 220 MG CAPSULE. PO SCH (08:35)
[2020-10-08] MEDS: ASPIRIN CHEWABLE 81 MG TABLET. PO SCH (08:35)
[2020-10-08] MEDS: MULTIVITAMINS,THERAPEUTIC 5 ML ORAL LIQUID. PEG SCH (08:35)
[2020-10-08] MEDS: ASCORBIC ACID 1,000 MG TABLET PO SCH ×3 (08:36→20:48)
[2020-10-08] MEDS: SENNOSIDES/DOCUSATE 8.6/50MG TABLET. PO SCH ×2 (08:36→20:47)
[2020-10-08] MEDS: NYSTATIN TOPICAL POWDER 15GM BOTTLE. TP SCH ×2 (08:36→20:53)
--- NOTE | 2020-10-08 09:24 | RAD ---
XR CHEST 1V INDICATION: RF COMPARISON STUDY: 10/05/2020. FINDINGS: Life Support Devices: Stable endotracheal tube at the thoracic inlet, approximately 8.5 cm above the romie. Stable enteric tube and right PICC. Lungs: Normal lung volume. Diffuse bilateral opacities, mildly progressed. Pleura: No pleural effusion or pneumothorax. Heart and Mediastinum: Stable cardiomediastinal silhouette and great vessels. Bones and Soft Tissues: Stable regional skeleton and soft tissues. IMPRESSION: 1. Stable life support devices. 2. Diffuse bilateral opacities, mildly progressed. Electronically signed by: Everett Gomez MD (10/08/2020 9:22 AM) [id number]
[2020-10-08] MEDS: INSULIN GLARGINE SYRINGE. SQ SCH ×2 (10:27→20:50)
[2020-10-08] MEDS: fentaNYL HIGH DOSE PCA 55 ML IV PRN (10:28)
[2020-10-08] MEDS ORDERED: ELECTROLYTE (ICU) PROTOCOL. MC PRN (10:30)
--- NOTE | 2020-10-08 10:39 | PDOC ---
[facility] PROGRESS NOTE Date of Service DOS: DATE: 10/08/20 TIME: 10:28 Chief Complaint Chief Complaint Acute COVID-19 pneumonia Acute hypoxic respiratory failure Sepsis Bradycardia History of diabetes mellitus type 2 History of hypertension History of dyslipidemia Continue insulin regimen to 25 units twice daily Pulmonology consult Continue IV thiamine and vitamin C IV 4 mg dexamethasone Daily Pending ferritin, LDH, CRP, D-dimer labs Titrate O2 supplementation to maintain O2 saturation greater than 92% Lovenox for DVT prophylaxis Protonix GI prophylaxis ADA diet Full code Discussed with RN and SW Disposition patient management as above Surrogate decision maker is the Jenni Morrissey History of Present Illness History of Present Illness Mr Morrissey is a 65-year-old white male w/ PMHx HTN, DM2, HLD, GERD presented to ED due to worsening cough and shortness of breath; patient also experiencing vomiting and diarrhea. Patient was recently diagnosed with COVID-19 on September 11 and has been doing well since that until a few days prior to arrival when his symptoms acutely worsened this morning. Has not received Covid vaccine. Close contacts at home have very similar symptoms. 09/21/2020 No acute events overnight. Patient saturating 98% on 10 L nasal cannula. If patient requires increasing O2 requirements may consider pulmonology consult for further management. Continue Covid treatment protocol. Currently on Remdesivir. Patient's chart, labs, images were reviewed and discussed with RN 09/22/2020 No acute events overnight. Patient saturating 91% on 10 L nasal cannula. Patient sitting over the side of bed and doing well and saying that he does have some shortness of breath with ambulation. Combivent inhaler ordered today. Patient's chart, labs, images were reviewed and discussed with RN 09/23/2020 No acute events overnight. Patient is requiring increasing O2 requirements. Saturating 88% on 15 L nonrebreather and also nasal cannula. Patient may require BiPAP. Discussed with pulmonary for possible ICU transfer. Patient's chart, labs, images were reviewed and discussed with RN 09/24/2020: Patient transferred to the ICU yesterday and intubated. Afebrile, currently breathing FiO2 100%, PEEP 10. Final dose of remdesivir today. Chest x- ray yesterday showed interval development of extensive bilateral airspace disease. We will continue treatment with steroids and IV antibiotics. Critical care time 30 minutes spent reviewing charts, reviewing labs, reviewing imaging, discussion with RN. 09/25/2020: Afebrile. On vent with FiO2 80%, PEEP 9. He has completed course of remdesivir. Continue IV steroids for total dose 10 days and IV Zosyn. Critical care time 30 minutes spent reviewing charts, reviewing labs, reviewing imaging, discussion with RN. 09/26/2020: Afebrile. Remains on vent with FiO2 70%, PEEP 8. Completed remdesivir. Continue prophylactic IV Zosyn. Continue IV steroids for total of 10 days (steroid course to end 09/30 with slow taper). Critical care time 30 minutes spent reviewing charts, reviewing labs, reviewing imaging, discussion with RN. 09/27/2020: No acute events overnight. Afebrile. On vent with FiO2 70%, PEEP 8. Continue with IV antibiotics and steroids, with taper. Completed remdesivir. Critical care time 30 minutes spent reviewing charts, reviewing labs, reviewing imaging, discussion with RN. 09/28/2020: Afebrile. On vent with FiO2 90%, PEEP 8. Completed remdesivir. Continue IV antibiotics. Continue steroids to complete 10-day course (09/30/2020). KUB yesterday showed enteric tube tip projects over the body the stomach; bilateral parenchymal lung airspace opacities are seen. Critical care time 30 minutes spent reviewing charts, reviewing labs, reviewing imaging, discussion with RN. 09/29/2020: Afebrile. On vent with increased oxygen requirement, FiO2 100%, PEEP 8. Chest x-ray yesterday showed increasing bilateral airspace opacities throughout both lungs suggesting worsening infiltrates. Continue steroids to complete 10-day course (09/30/2020), and continue IV antibiotics. Critical care time 30 minutes spent reviewing charts, reviewing labs, reviewing imaging, discussion with RN. 09/30/2020: On vent with FiO2 90%, PEEP 8. Afebrile. Steroids have been increased to dexamethasone 20 mg for 5 days, 10 mg for 5 days (started 09/29 to be completed 10/09). Continue IV antibiotics. Critical care time 30 minutes spent reviewing charts, reviewing labs, reviewing imaging, discussion with RN. 10/01/2020 No acute events overnight. Patient saturating 97% on vent settings of 22/500/80/8. Currently sedated and intubated. Patient's chart, labs, images were reviewed and discussed with RN A total of 35 minutes of critical care time was spent in reviewing chart, labs, and images. Discussed with RN and KALEN. 10/02/2020 No acute events overnight. Patient saturating 95% on vent settings of 22/ 500/75/7. ABG expected at 7.4 /72/28. Currently intubated and sedated. Patient's chart, labs, images were reviewed and discussed with RN A total of 33 minutes of critical care time was spent in reviewing chart, labs, and images. Discussed with RN and KALEN. 10/03/2020 No acute events overnight. Patient saturating 94% on vent settings of 22/500/75/7. Improved sugar control. Patient's chart, labs, images were reviewed and discussed with RN A total of 33 minutes of critical care time was spent in reviewing chart, labs, and images. Discussed with RN and KALEN. 10/04/2020 No acute events overnight. Patient continues to be saturating 100% on vent settings of 22/500/65/7. Last ABG show pH of 7.5 //28. Adjustments to vent settings made by pulmonology. Patient's chart, labs, images were reviewed and discussed with RN A total of 34 minutes of critical care time was spent in reviewing chart, labs, and images. Discussed with RN and KALEN. 10/05/2020 No acute events overnight. Patient saturating 96% on vent settings of 20/500/65/7. Discussed prognosis with family. Prognosis is guarded at this time. In addition to my E/M visit, advance care planning done with A total time of 20 minutes was spent from 830 to 850 face to face in discussion with the family regarding their goals of care A total of 33 minutes of critical care time was spent in reviewing chart, labs, and images. Discussed with RN and KALEN. 10/06/2020 No acute events overnight. Patient saturating 95% on vent settings of 20/500/50/6. No other concerns from nursing at this time. Patient's chart, labs, images were reviewed and discussed with RN A total of 35 minutes of critical care time was spent in reviewing chart, labs, and images. Discussed with RN and 10/07/2020 No acute events overnight. Patient saturating 96% on vent settings of 20/500/50/6. T-max of 100.3. Patient's chart, labs, images were reviewed and discussed with RN A total of 33 minutes of critical care time was spent in reviewing chart, labs, and images. Discussed with RN and SW. Afebrile overnight tolerating diet well sedated with propofol Versed and fentanyl PEEP of 6 FiO2 50% ABG 7.4 . Discussed with bedside. CC time 31 minutes Vitals/I&O Vitals/I&O: Vital Signs Date Time Temp Pulse Resp B/P (MAP) Pulse Ox O2 Delivery O2 Flow Rate FiO2 10/08/20 09:00 65 24 110/52 (71) 93 Ventilator 10/08/20 08:00 99.6 99.6 I & O 10/07/20 10/07/20 10/08/20 15:00 23:00 07:00 Intake Total 685 ml 1289 ml 1744.6 ml Output Total 335 ml 400 ml 310 ml Balance 350 ml 889 ml 1434.6 ml Physical Exam General: Other (Intubated and sedated) Heart: Regular rate Lungs: Crackles Abdomen: Normal bowel sounds Extremities: No clubbing Skin: No rashes, No significant lesion Labs Labs: Laboratory Tests Test 10/07/20 12:06 10/07/20 18:34 10/08/20 00:48 10/08/20 05:50 Glucose (Fingerstick) 182 mg/dL (70-99) 157 mg/dL (70-99) 154 mg/dL (70-99) White Blood Count 7.9 x10^3/uL (4.0-11.0) Red Blood Count 3.38 x10^6/uL (4.30-5.70) Hemoglobin 10.1 g/dL (13.0-17.5) Hematocrit 30.2 % (39.0-53.0) Mean Corpuscular Volume 89 fL (79-100) Mean Corpuscular Hemoglobin 30 pg (25-35) Mean Corpuscular Hemoglobin Concent 34 g/dL (31-37) Red Cell Distribution Width 14.2 % (11.5-14.5) Platelet Count 140 x10^3/uL (140-400) Neutrophils (%) (Auto) 72 % (31-73) Lymphocytes (%) (Auto) 12 % (24-48) Monocytes (%) (Auto) 13 % (0-9) Eosinophils (%) (Auto) 2 % (0-3) Basophils (%) (Auto) 1 % (0-3) Neutrophils # (Auto) 5.7 x10^3/uL (1.8-7.7) Lymphocytes # (Auto) 1.0 x10^3/uL (1.0-4.8) Monocytes # (Auto) 1.0 x10^3/uL (0.0-1.1) Eosinophils # (Auto) 0.1 x10^3/uL (0.0-0.7) Basophils # (Auto) 0.1 x10^3/uL (0.0-0.2) Sodium Level 138 mmol/L (136-145) Potassium Level 3.7 mmol/L (3.5-5.1) Chloride Level 104 mmol/L (98-107) Carbon Dioxide Level 30 mmol/L (21-32) Anion Gap 4 (6-14) Blood Urea Nitrogen 17 mg/dL (8-26) Creatinine 0.7 mg/dL (0.7-1.3) Estimated GFR (Cockcroft-Gault) 113.9 Glucose Level 164 mg/dL (70-99) Calcium Level 7.9 mg/dL (8.5-10.1) Phosphorus Level 4.1 mg/dL (2.6-4.7) Magnesium Level 1.7 mg/dL (1.8-2.4) Test 10/08/20 05:57 10/08/20 08:00 Glucose (Fingerstick) 152 mg/dL (70-99) O2 Saturation 93 % (92-99) Arterial Blood pH 7.45 (7.35-7.45) Arterial Blood pCO2 at Patient Temp 39 mmHg (35-46) Arterial Blood pO2 at Patient Temp 67 mmHg (65-108) Arterial Blood HCO3 27 mmol/L (21-28) Arterial Blood Base Excess 3 mmol/L (-3-3) FiO2 50 Assessment and Plan Assessmemt and Plan Problems Medical Problems: (1) Bilateral pulmonary infiltrates on CXR Status: Acute (2) Fever Status: Acute (3) Hypoxia Status: Acute (4) Lab test positive for detection of COVID-19 virus Status: Acute Comment Review of Relevant I have reviewed the following items lukasz (where applicable) has been applied. Justifications for Admission Other Justification ALCIDES DAVIS MD Oct 08, 2020 10:39
[2020-10-08 10:47] LABS: % BANDS 2 % (0-9); % EOS 3 % (0-5); % LYMPHS 14 % (24-48); % MONOS 9 % (0-10); % SEGS 72 % (35-66); PLT ESTIMATE ADEQUATE (ADEQUATE)
--- NOTE | 2020-10-08 10:53 | PDOC ---
PULMONARY PROGRESS NOTES DATE: 10/08/20 TIME: 10:52 Subjective Patient remains on vent support Afebrile sedated on prop fentanyl versed small ett secretion 50% FiO2 and 6 of PEEP. Vitals Vital Signs Date Time Temp Pulse Resp B/P (MAP) Pulse Ox O2 Delivery O2 Flow Rate FiO2 10/08/20 10:28 24 95 Ventilator 10/08/20 10:00 62 96/47 (63) 10/08/20 08:00 99.6 99.6 Comments ros unable to obtain on vent sedated HEENT: Other (nc at perrl nose clear orally intubated neck no lad no thyromegaly ) Lungs: Crackles Cardiovascular: S1, S2 Abdomen: Soft, Non-tender Extremities: No Edema Skin: Warm Labs Laboratory Tests Test 10/06/20 11:36 10/06/20 17:15 10/06/20 19:57 10/07/20 00:17 Glucose (Fingerstick) 184 mg/dL (70-99) 165 mg/dL (70-99) 138 mg/dL (70-99) 129 mg/dL (70-99) Test 10/07/20 06:05 10/07/20 07:50 10/07/20 12:06 10/07/20 18:34 Glucose (Fingerstick) 148 mg/dL (70-99) 182 mg/dL (70-99) 157 mg/dL (70-99) O2 Saturation 93 % (92-99) Arterial Blood pH 7.43 (7.35-7.45) Arterial Blood pCO2 at Patient Temp 43 mmHg (35-46) Arterial Blood pO2 at Patient Temp 67 mmHg (65-108) Arterial Blood HCO3 28 mmol/L (21-28) Arterial Blood Base Excess 3 mmol/L (-3-3) FiO2 50 Test 10/08/20 00:48 10/08/20 05:50 10/08/20 05:57 10/08/20 08:00 Glucose (Fingerstick) 154 mg/dL (70-99) 152 mg/dL (70-99) White Blood Count 7.9 x10^3/uL (4.0-11.0) Red Blood Count 3.38 x10^6/uL (4.30-5.70) Hemoglobin 10.1 g/dL (13.0-17.5) Hematocrit 30.2 % (39.0-53.0) Mean Corpuscular Volume 89 fL (79-100) Mean Corpuscular Hemoglobin 30 pg (25-35) Mean Corpuscular Hemoglobin Concent 34 g/dL (31-37) Red Cell Distribution Width 14.2 % (11.5-14.5) Platelet Count 140 x10^3/uL (140-400) Neutrophils (%) (Auto) 72 % (31-73) Lymphocytes (%) (Auto) 12 % (24-48) Monocytes (%) (Auto) 13 % (0-9) Eosinophils (%) (Auto) 2 % (0-3) Basophils (%) (Auto) 1 % (0-3) Neutrophils # (Auto) 5.7 x10^3/uL (1.8-7.7) Lymphocytes # (Auto) 1.0 x10^3/uL (1.0-4.8) Monocytes # (Auto) 1.0 x10^3/uL (0.0-1.1) Eosinophils # (Auto) 0.1 x10^3/uL (0.0-0.7) Basophils # (Auto) 0.1 x10^3/uL (0.0-0.2) Segmented Neutrophils % 72 % (35-66) Band Neutrophils % 2 % (0-9) Lymphocytes % 14 % (24-48) Monocytes % 9 % (0-10) Eosinophils % 3 % (0-5) Platelet Estimate Adequate (ADEQUATE) Sodium Level 138 mmol/L (136-145) Potassium Level 3.7 mmol/L (3.5-5.1) Chloride Level 104 mmol/L (98-107) Carbon Dioxide Level 30 mmol/L (21-32) Anion Gap 4 (6-14) Blood Urea Nitrogen 17 mg/dL (8-26) Creatinine 0.7 mg/dL (0.7-1.3) Estimated GFR (Cockcroft-Gault) 113.9 Glucose Level 164 mg/dL (70-99) Calcium Level 7.9 mg/dL (8.5-10.1) Phosphorus Level 4.1 mg/dL (2.6-4.7) Magnesium Level 1.7 mg/dL (1.8-2.4) O2 Saturation 93 % (92-99) Arterial Blood pH 7.45 (7.35-7.45) Arterial Blood pCO2 at Patient Temp 39 mmHg (35-46) Arterial Blood pO2 at Patient Temp 67 mmHg (65-108) Arterial Blood HCO3 27 mmol/L (21-28) Arterial Blood Base Excess 3 mmol/L (-3-3) FiO2 50 Laboratory Tests Test 10/07/20 12:06 10/07/20 18:34 10/08/20 00:48 10/08/20 05:50 Glucose (Fingerstick) 182 mg/dL (70-99) 157 mg/dL (70-99) 154 mg/dL (70-99) White Blood Count 7.9 x10^3/uL (4.0-11.0) Red Blood Count 3.38 x10^6/uL (4.30-5.70) Hemoglobin 10.1 g/dL (13.0-17.5) Hematocrit 30.2 % (39.0-53.0) Mean Corpuscular Volume 89 fL (79-100) Mean Corpuscular Hemoglobin 30 pg (25-35) Mean Corpuscular Hemoglobin Concent 34 g/dL (31-37) Red Cell Distribution Width 14.2 % (11.5-14.5) Platelet Count 140 x10^3/uL (140-400) Neutrophils (%) (Auto) 72 % (31-73) Lymphocytes (%) (Auto) 12 % (24-48) Monocytes (%) (Auto) 13 % (0-9) Eosinophils (%) (Auto) 2 % (0-3) Basophils (%) (Auto) 1 % (0-3) Neutrophils # (Auto) 5.7 x10^3/uL (1.8-7.7) Lymphocytes # (Auto) 1.0 x10^3/uL (1.0-4.8) Monocytes # (Auto) 1.0 x10^3/uL (0.0-1.1) Eosinophils # (Auto) 0.1 x10^3/uL (0.0-0.7) Basophils # (Auto) 0.1 x10^3/uL (0.0-0.2) Segmented Neutrophils % 72 % (35-66) Band Neutrophils % 2 % (0-9) Lymphocytes % 14 % (24-48) Monocytes % 9 % (0-10) Eosinophils % 3 % (0-5) Platelet Estimate Adequate (ADEQUATE) Sodium Level 138 mmol/L (136-145) Potassium Level 3.7 mmol/L (3.5-5.1) Chloride Level 104 mmol/L (98-107) Carbon Dioxide Level 30 mmol/L (21-32) Anion Gap 4 (6-14) Blood Urea Nitrogen 17 mg/dL (8-26) Creatinine 0.7 mg/dL (0.7-1.3) Estimated GFR (Cockcroft-Gault) 113.9 Glucose Level 164 mg/dL (70-99) Calcium Level 7.9 mg/dL (8.5-10.1) Phosphorus Level 4.1 mg/dL (2.6-4.7) Magnesium Level 1.7 mg/dL (1.8-2.4) Test 10/08/20 05:57 10/08/20 08:00 Glucose (Fingerstick) 152 mg/dL (70-99) O2 Saturation 93 % (92-99) Arterial Blood pH 7.45 (7.35-7.45) Arterial Blood pCO2 at Patient Temp 39 mmHg (35-46) Arterial Blood pO2 at Patient Temp 67 mmHg (65-108) Arterial Blood HCO3 27 mmol/L (21-28) Arterial Blood Base Excess 3 mmol/L (-3-3) FiO2 50 Medications Active Scripts Medications Dose Route/Sig Max Daily Dose Days Date Category Icosapent Ethyl 1 Gm Capsule 2 Cap PO BID 09/20/20 Reported Metformin Hcl 1,000 Mg Tablet 1 Tab PO BID 09/20/20 Reported Rybelsus (Semaglutide) 7 Mg Tablet 1 Tab PO DAILY 09/20/20 Reported Farxiga (Dapagliflozin Propanediol) 10 Mg Tablet 1 Tab PO DAILY 09/20/20 Reported Trelegy Ellipta 100-62.5-25 (Fluticasone/Umeclidin/Vilanter) 1 Each Blst.w.dev 1 Puff INH DAILY 09/20/20 Reported Benzonatate 200 Mg Capsule 1 Cap PO TID PRN 09/20/20 Reported Montelukast Sodium 10 Mg Tablet 1 Tab PO DAILY 09/20/20 Reported Loratadine 10 Mg Tablet 1 Tab PO DAILY 09/20/20 Reported Fluticasone Propionate Nasal [place] (Fluticasone Propionate) 16 Gm [place].susp 1 Sprays NS BID 09/20/20 Reported Simvastatin 20 Mg Tablet 1 Tab PO QHS 11/20/15 Reported Comments Chest x-ray reviewed 10/08/2020. Bilateral interstitial infiltrates, mild progression Chest x-ray reviewed 10/05/2020 Diffuse bilateral unchanged interstitial infiltrates related to Covid Impression . 1. Acute hypoxic respiratory failure secondary to COVID-19 viral pneumonia/acute lung injury.---intubated 09/23/20 2. Abnormal chest x-ray consistent with mild infiltrates favoring COVID-19 viral pneumonia. 3. Leukopenia and thrombocytopenia due to COVID-19 viral pneumonia.--improved 4. No significant tobacco history. Plan . Updated 10/08/2020 Continue current ventilatory support setting reviewed 22/500/6/50%, wean peep fio2 as tolerated decrease sedation sbt when on peep 5 fio2 40% Follow chest x-ray/ABG,--make changes as appropriate elevate hob Status post remdesivir --Patient has completed full course of steroids as well Continue tube feeding for nutritional support DVT/GI prophylaxis: Lovenox Discussed with RN and RT Discussed with at the bedside. Updated 10/07/2020 Continue current ventilatory support setting reviewed 22/500/6/50%, wean peep fio2 as tolerated decrease sedation sbt when on peep 5 fio2 50% Follow chest x-ray/ABG,--make changes as appropriate elevate hob Status post remdesivir --Patient has completed full course of steroids as well Continue tube feeding for nutritional support DVT/GI prophylaxis: Lovenox Discussed with RN and RT Updated 10/06/2020 Continue current ventilatory support setting reviewed 22/500/7/50%, wean peep fio2 as tolerated Follow chest x-ray/ABG,--make changes as appropriate elevate hob Status post remdesivir --Patient has completed full course of steroids as well Continue tube feeding for nutritional support DVT/GI prophylaxis: Lovenox Discussed with RN and RT Once down to 40% oxygen and 5 of PEEP we will start weaning sedation. Updated 10/05/2020 Continue current ventilatory support 22/500/75/8, wean as tolerated Follow chest x-ray/ABG,--reduce FiO2 to 50%, current PEEP is at 7. Status post remdesivir --Patient has completed full course of steroids as well Continue tube feeding for nutritional support DVT/GI prophylaxis: Lovenox Discussed with RN and RT Patient is clinically improving. Once down to 40% oxygen and 5 of PEEP we will start weaning sedation. Critical care time 30 minutes Updated 10/04/2020 Continue current ventilatory support 22/500/75/8, wean as tolerated Follow chest x-ray/ABG,--reduce FiO2 to 65%, and reduce respiratory rate to 20 Status post remdesivir --Patient has completed full course of steroids as well Continue tube feeding for nutritional support DVT/GI prophylaxis: Lovenox Discussed with RN and RT Critical care time 30 minutes ERIC GOTTLIEB MD Oct 08, 2020 10:53
[2020-10-08] MEDS ORDERED: MAGNESIUM SULFATE 1GM 100 ML IV ONE (11:00)
--- NOTE | 2020-10-08 15:36 | NUR ---
SS following up with discharge planning. SS reviewed pt chart and discussed with pt RN. Pt is currently on the vent at 50%. COVID19 recovered. Pt on Versed, Fentanyl, and Propofol. SS will continue to follow for discharge planning.
[2020-10-08] MEDS: SIMVASTATIN 20 MG TABLET PO SCH (20:50)
[2020-10-09] VITALS (24 sets, daily range): BP systolic 104–180; BP diastolic 52–89
[2020-10-09] MEDS: IV NORMAL SALINE 1000ML BAG 1,000 ML IV SCH (05:17)
[2020-10-09] MEDS: INSULIN LISPRO 300 UNITS/3 ML VIAL. SQ SCH ×3 (06:11→17:37)
[2020-10-09] MEDS: PROPOFOL 100 ML IV PRN ×3 (06:12→21:16)
[2020-10-09 07:30] LABS: BASE EXCESS ABG 2 mmol/L (-3-3); HCO3 ABG 26 mmol/L (21-28); PCO2 ABG 37 mmHg (35-46); PO2 ABG 68 mmHg (65-108); SAT O2 ABG 93 % (92-99)
--- NOTE | 2020-10-09 07:40 | PDOC ---
[facility] [facility] PROGRESS NOTE Date of Service DOS: DATE: 10/09/20 TIME: 07:34 Chief Complaint Chief Complaint Acute COVID-19 pneumonia Acute hypoxic respiratory failure Sepsis Bradycardia History of diabetes mellitus type 2 History of hypertension History of dyslipidemia Continue insulin regimen to 25 units twice daily Pulmonology consult Continue IV thiamine and vitamin C IV 4 mg dexamethasone Daily Pending ferritin, LDH, CRP, D-dimer labs Titrate O2 supplementation to maintain O2 saturation greater than 92% Lovenox for DVT prophylaxis Protonix GI prophylaxis ADA diet Full code Discussed with RN and SW Disposition patient management as above Surrogate decision maker is the Jenni Morrissey History of Present Illness History of Present Illness Mr Morrissey is a 65-year-old white male w/ PMHx HTN, DM2, HLD, GERD presented to ED due to worsening cough and shortness of breath; patient also experiencing vomiting and diarrhea. Patient was recently diagnosed with COVID-19 on September 11 and has been doing well since that until a few days prior to arrival when his symptoms acutely worsened this morning. Has not received Covid vaccine. Close contacts at home have very similar symptoms. 09/21: Patient saturating 98% on 10 L nasal cannula. Increasing O2 requirements may consider pulmonology consult. On remdesivir, steroids 09/22: Patient saturating 91% on 10 L nasal cannula. Shortness of breath with ambulation. Combivent inhaler ordered today. 09/23: Patient is requiring increasing O2 requirements. Saturating 88% on 15 L nonrebreather and also nasal cannula. ICU transfer and intubated. 09/24: In ICU on vent. Afebrile, currently breathing FiO2 100%, PEEP 10. Final dose of remdesivir today. 09/25: Afebrile. On vent with FiO2 80%, PEEP 9. He has completed course of remdesivir. IV steroids for total dose 10 days and IV Zosyn. 09/26: Afebrile. Remains on vent with FiO2 70%, PEEP 8. Completed remdesivir. Continue prophylactic IV Zosyn. 09/27: No acute events overnight. Afebrile. On vent with FiO2 70%, PEEP 8. Cont IV antibiotics and steroids, with taper. Completed remdesivir. 09/28: Afebrile. On vent with FiO2 90%, PEEP 8. Completed remdesivir. Continue IV antibiotics. KUB with good OGT placement 09/29: Afebrile. On vent with increased oxygen requirement, FiO2 100%, PEEP 8. CXR increasing bilateral airspace opacities 09/30: On vent with FiO2 90%, PEEP 8. Afebrile. Steroids have been increased to dexamethasone 20 mg for 5 days, 10 mg for 5 days 10/01: No acute events overnight. Patient saturating 97% on vent settings of 22/500/80/8. Currently sedated and intubated. 10/02: Patient saturating 95% on vent settings of 22/500/75/7. ABG expected at 7.4 /72/28. Currently intubated and sedated. 10/03: No acute events overnight. Patient saturating 94% on vent settings of 22/500/75/7. Improved sugar control. 10/04: Saturating 100% on vent settings of 22/500/65/7. Last ABG show pH of 7.5 //28. Adjustments to vent settings by pulmonology. 10/05: No acute events overnight. Patient saturating 96% on vent settings of 20/500/65/7. Discussed prognosis with family. 10/06: No acute events overnight. Patient saturating 95% on vent settings of 20/500/50/6. No other concerns from nursing at this time. 10/07: No acute events overnight. Patient saturating 96% on vent settings of 20/500/50/6. T-max of 100.3. 10/08: Afebrile overnight. Sedated with propofol Versed and fentanyl PEEP of 6 FiO2 50% ABG 7.4 . Discussed with bedside. 10/09: T-max 100.3 F. Sedated with propofol Versed fentanyl, O2 saturations 96%, ABG 7.4 on FiO2 50% and normal PEEP of 6. D/w bedside. Good UOP Vitals/I&O Vitals/I&O: Vital Signs Date Time Temp Pulse Resp B/P (MAP) Pulse Ox O2 Delivery O2 Flow Rate FiO2 10/09/20 07:21 96 Ventilator 10/09/20 06:00 64 25 132/61 (84) 10/09/20 04:00 100.3 100.3 I & O 10/08/20 10/08/20 10/09/20 15:00 23:00 07:00 Intake Total 200 ml 1842 ml 1246.9 ml Output Total 400 ml 520 ml 610 ml Balance -200 ml 1322 ml 636.9 ml Physical Exam General: Other (Intubated and sedated) Heart: Regular rate Lungs: Crackles Abdomen: Normal bowel sounds Extremities: No clubbing Skin: No rashes, No significant lesion Labs Labs: Laboratory Tests Test 10/08/20 08:00 10/08/20 11:58 10/08/20 17:41 10/08/20 23:57 O2 Saturation 93 % (92-99) Arterial Blood pH 7.45 (7.35-7.45) Arterial Blood pCO2 at Patient Temp 39 mmHg (35-46) Arterial Blood pO2 at Patient Temp 67 mmHg (65-108) Arterial Blood HCO3 27 mmol/L (21-28) Arterial Blood Base Excess 3 mmol/L (-3-3) FiO2 50 Glucose (Fingerstick) 134 mg/dL (70-99) 149 mg/dL (70-99) 121 mg/dL (70-99) Test 10/09/20 06:10 Glucose (Fingerstick) 164 mg/dL (70-99) Assessment and Plan Assessmemt and Plan Problems Medical Problems: (1) Bilateral pulmonary infiltrates on CXR Status: Acute (2) Fever Status: Acute (3) Hypoxia Status: Acute (4) Lab test positive for detection of COVID-19 virus Status: Acute Comment Review of Relevant I have reviewed the following items lukasz (where applicable) has been applied. Medications: Current Medications Medications (Trade) Dose Ordered Sig/Khadar Route PRN Reason Start Time Stop Time Status Last Admin Dose Admin Magnesium Sulfate/ Dextrose 100 ml @ 100 mls/hr 1X ONCE IV 10/08/20 11:00 10/08/20 11:59 DC 10/08/20 11:04 Justifications for Admission Other Justification ALCIDES DAVIS MD Oct 09, 2020 07:40
[2020-10-09] MEDS ORDERED: MAGNESIUM SULFATE 2GM 50 ML IV ONE (07:45)
[2020-10-09 08:06] LABS: FIO2 ABG 50
[2020-10-09] MEDS: ASPIRIN CHEWABLE 81 MG TABLET. PO SCH (08:36)
[2020-10-09] MEDS: ZINC SULFATE 220 MG CAPSULE. PO SCH (08:38)
[2020-10-09] MEDS: ASCORBIC ACID 1,000 MG TABLET PO SCH ×3 (08:39→21:18)
[2020-10-09] MEDS: SENNOSIDES/DOCUSATE 8.6/50MG TABLET. PO SCH ×2 (08:40→21:17)
[2020-10-09] MEDS: PANTOPRAZOLE IV PUSH 40 MG VIAL. IVP SCH (08:42)
[2020-10-09] MEDS: MULTIVITAMINS,THERAPEUTIC 5 ML ORAL LIQUID. PEG SCH (08:43)
[2020-10-09] MEDS: NYSTATIN TOPICAL POWDER 15GM BOTTLE. TP SCH ×2 (08:46→21:19)
[2020-10-09] MEDS: ENOXAPARIN 40 MG/0.4 ML SYRINGE. SQ SCH ×2 (08:46→21:16)
[2020-10-09] MEDS: INSULIN GLARGINE SYRINGE. SQ SCH ×2 (08:51→21:19)
--- NOTE | 2020-10-09 09:57 | NUR ---
SS following up with discharge planning. SS reviewed pt chart and discussed with pt RN. Pt is currently on the vent at 40%. COVID19 recovered. Pt on Fentanyl and Propofol. SS will continue to follow for discharge planning.
--- NOTE | 2020-10-09 10:27 | PDOC ---
PULMONARY PROGRESS NOTES DATE: 10/09/20 TIME: 10:25 Subjective Patient remains on vent support Afebrile sedated on prop fentanyl versed small ett secretion 50% FiO2 and 6 of PEEP. Vitals Vital Signs Date Time Temp Pulse Resp B/P (MAP) Pulse Ox O2 Delivery O2 Flow Rate FiO2 10/09/20 09:26 94 Ventilator 10/09/20 06:00 64 25 132/61 (84) 10/09/20 04:00 100.3 100.3 Comments ros unable to obtain on vent sedated HEENT: Other (nc at perrl nose clear orally intubated neck no lad no thyromegaly ) Lungs: Crackles Cardiovascular: S1, S2 Abdomen: Soft, Non-tender Extremities: No Edema Skin: Warm Labs Laboratory Tests Test 10/07/20 12:06 10/07/20 18:34 10/08/20 00:48 10/08/20 05:50 Glucose (Fingerstick) 182 mg/dL (70-99) 157 mg/dL (70-99) 154 mg/dL (70-99) White Blood Count 7.9 x10^3/uL (4.0-11.0) Red Blood Count 3.38 x10^6/uL (4.30-5.70) Hemoglobin 10.1 g/dL (13.0-17.5) Hematocrit 30.2 % (39.0-53.0) Mean Corpuscular Volume 89 fL (79-100) Mean Corpuscular Hemoglobin 30 pg (25-35) Mean Corpuscular Hemoglobin Concent 34 g/dL (31-37) Red Cell Distribution Width 14.2 % (11.5-14.5) Platelet Count 140 x10^3/uL (140-400) Neutrophils (%) (Auto) 72 % (31-73) Lymphocytes (%) (Auto) 12 % (24-48) Monocytes (%) (Auto) 13 % (0-9) Eosinophils (%) (Auto) 2 % (0-3) Basophils (%) (Auto) 1 % (0-3) Neutrophils # (Auto) 5.7 x10^3/uL (1.8-7.7) Lymphocytes # (Auto) 1.0 x10^3/uL (1.0-4.8) Monocytes # (Auto) 1.0 x10^3/uL (0.0-1.1) Eosinophils # (Auto) 0.1 x10^3/uL (0.0-0.7) Basophils # (Auto) 0.1 x10^3/uL (0.0-0.2) Segmented Neutrophils % 72 % (35-66) Band Neutrophils % 2 % (0-9) Lymphocytes % 14 % (24-48) Monocytes % 9 % (0-10) Eosinophils % 3 % (0-5) Platelet Estimate Adequate (ADEQUATE) Sodium Level 138 mmol/L (136-145) Potassium Level 3.7 mmol/L (3.5-5.1) Chloride Level 104 mmol/L (98-107) Carbon Dioxide Level 30 mmol/L (21-32) Anion Gap 4 (6-14) Blood Urea Nitrogen 17 mg/dL (8-26) Creatinine 0.7 mg/dL (0.7-1.3) Estimated GFR (Cockcroft-Gault) 113.9 Glucose Level 164 mg/dL (70-99) Calcium Level 7.9 mg/dL (8.5-10.1) Phosphorus Level 4.1 mg/dL (2.6-4.7) Magnesium Level 1.7 mg/dL (1.8-2.4) Test 10/08/20 05:57 10/08/20 08:00 10/08/20 11:58 10/08/20 17:41 Glucose (Fingerstick) 152 mg/dL (70-99) 134 mg/dL (70-99) 149 mg/dL (70-99) O2 Saturation 93 % (92-99) Arterial Blood pH 7.45 (7.35-7.45) Arterial Blood pCO2 at Patient Temp 39 mmHg (35-46) Arterial Blood pO2 at Patient Temp 67 mmHg (65-108) Arterial Blood HCO3 27 mmol/L (21-28) Arterial Blood Base Excess 3 mmol/L (-3-3) FiO2 50 Test 10/08/20 23:57 10/09/20 06:10 10/09/20 07:25 Glucose (Fingerstick) 121 mg/dL (70-99) 164 mg/dL (70-99) O2 Saturation 93 % (92-99) Arterial Blood pH 7.46 (7.35-7.45) Arterial Blood pCO2 at Patient Temp 37 mmHg (35-46) Arterial Blood pO2 at Patient Temp 68 mmHg (65-108) Arterial Blood HCO3 26 mmol/L (21-28) Arterial Blood Base Excess 2 mmol/L (-3-3) FiO2 50 Laboratory Tests Test 10/08/20 11:58 10/08/20 17:41 10/08/20 23:57 10/09/20 06:10 Glucose (Fingerstick) 134 mg/dL (70-99) 149 mg/dL (70-99) 121 mg/dL (70-99) 164 mg/dL (70-99) Test 10/09/20 07:25 O2 Saturation 93 % (92-99) Arterial Blood pH 7.46 (7.35-7.45) Arterial Blood pCO2 at Patient Temp 37 mmHg (35-46) Arterial Blood pO2 at Patient Temp 68 mmHg (65-108) Arterial Blood HCO3 26 mmol/L (21-28) Arterial Blood Base Excess 2 mmol/L (-3-3) FiO2 50 Medications Active Scripts Medications Dose Route/Sig Max Daily Dose Days Date Category Icosapent Ethyl 1 Gm Capsule 2 Cap PO BID 09/20/20 Reported Metformin Hcl 1,000 Mg Tablet 1 Tab PO BID 09/20/20 Reported Rybelsus (Semaglutide) 7 Mg Tablet 1 Tab PO DAILY 09/20/20 Reported Farxiga (Dapagliflozin Propanediol) 10 Mg Tablet 1 Tab PO DAILY 09/20/20 Reported Trelegy Ellipta 100-62.5-25 (Fluticasone/Umeclidin/Vilanter) 1 Each Blst.w.dev 1 Puff INH DAILY 09/20/20 Reported Benzonatate 200 Mg Capsule 1 Cap PO TID PRN 09/20/20 Reported Montelukast Sodium 10 Mg Tablet 1 Tab PO DAILY 09/20/20 Reported Loratadine 10 Mg Tablet 1 Tab PO DAILY 09/20/20 Reported Fluticasone Propionate Nasal [place] (Fluticasone Propionate) 16 Gm [place].susp 1 Sprays NS BID 09/20/20 Reported Simvastatin 20 Mg Tablet 1 Tab PO QHS 11/20/15 Reported Comments Chest x-ray reviewed 10/08/2020. Bilateral interstitial infiltrates, mild progression Chest x-ray reviewed 10/05/2020 Diffuse bilateral unchanged interstitial infiltrates related to Covid Impression . 1. Acute hypoxic respiratory failure secondary to COVID-19 viral pneumonia/acute lung injury.---intubated 09/23/20 2. Abnormal chest x-ray consistent with mild infiltrates favoring COVID-19 viral pneumonia. 3. Leukopenia and thrombocytopenia due to COVID-19 viral pneumonia.--improved 4. No significant tobacco history. Plan . Updated 10/09/2020 Continue current ventilatory support setting reviewed 22/500/6/50%, wean peep fio2 as tolerated decrease sedation sbt when on peep 5 fio2 40% Follow chest x-ray/ABG,--make changes as appropriate elevate hob Status post remdesivir --Patient has completed full course of steroids as well Continue tube feeding for nutritional support DVT/GI prophylaxis: Lovenox Discussed with patient's at the bedside. We will start weaning sedation and assess mental status. Discussed with RN and RT Updated 10/08/2020 Continue current ventilatory support setting reviewed 22/500/6/50%, wean peep fio2 as tolerated decrease sedation sbt when on peep 5 fio2 40% Follow chest x-ray/ABG,--make changes as appropriate elevate hob Status post remdesivir --Patient has completed full course of steroids as well Continue tube feeding for nutritional support DVT/GI prophylaxis: Lovenox Discussed with RN and RT Discussed with at the bedside. Updated 10/07/2020 Continue current ventilatory support setting reviewed 22/500/6/50%, wean peep fio2 as tolerated decrease sedation sbt when on peep 5 fio2 50% Follow chest x-ray/ABG,--make changes as appropriate elevate hob Status post remdesivir --Patient has completed full course of steroids as well Continue tube feeding for nutritional support DVT/GI prophylaxis: Lovenox Discussed with RN and RT Updated 10/06/2020 Continue current ventilatory support setting reviewed 22/500/7/50%, wean peep fio2 as tolerated Follow chest x-ray/ABG,--make changes as appropriate elevate hob Status post remdesivir --Patient has completed full course of steroids as well Continue tube feeding for nutritional support DVT/GI prophylaxis: Lovenox Discussed with RN and RT Once down to 40% oxygen and 5 of PEEP we will start weaning sedation. Updated 10/05/2020 Continue current ventilatory support 22/500/75/8, wean as tolerated Follow chest x-ray/ABG,--reduce FiO2 to 50%, current PEEP is at 7. Status post remdesivir --Patient has completed full course of steroids as well Continue tube feeding for nutritional support DVT/GI prophylaxis: Lovenox Discussed with RN and RT Patient is clinically improving. Once down to 40% oxygen and 5 of PEEP we will start weaning sedation. Critical care time 30 minutes Updated 10/04/2020 Continue current ventilatory support 22/500/75/8, wean as tolerated Follow chest x-ray/ABG,--reduce FiO2 to 65%, and reduce respiratory rate to 20 Status post remdesivir --Patient has completed full course of steroids as well Continue tube feeding for nutritional support DVT/GI prophylaxis: Lovenox Discussed with RN and RT Critical care time 30 minutes ERIC GOTTLIEB MD Oct 09, 2020 10:27
[2020-10-09] MEDS: SIMVASTATIN 20 MG TABLET PO SCH (21:17)
[2020-10-10] VITALS (25 sets, daily range): BP systolic 142–191; BP diastolic 62–84
[2020-10-10] MEDS: PROPOFOL 100 ML IV PRN ×4 (01:42→21:44)
[2020-10-10] MEDS: INSULIN LISPRO 300 UNITS/3 ML VIAL. SQ SCH ×4 (06:44→18:07)
[2020-10-10 06:56] LABS: HEMATOCRIT 33.1 % (39.0-53.0); HEMOGLOBIN 11.1 g/dL (13.0-17.5); RED BLOOD COUNT 3.75 x10^6/uL (4.30-5.70); RED CELL DISTRIBUTION WIDTH 14.2 % (11.5-14.5); WHITE BLOOD COUNT 8.1 x10^3/uL (4.0-11.0)
[2020-10-10 07:18] LABS: ALBUMIN 1.7 g/dL (3.4-5.0); ALBUMIN/GLOBULIN RATIO 0.4 (1.0-1.7); CALCIUM 8.4 mg/dL (8.5-10.1); CREATININE 0.7 mg/dL (0.7-1.3); GFR 113.9; POTASSIUM 4.2 mmol/L (3.5-5.1); TOTAL BILIRUBIN 0.7 mg/dL (0.2-1.0); TOTAL PROTEIN 5.8 g/dL (6.4-8.2)
[2020-10-10 07:44] LABS: BASE EXCESS ABG 3 mmol/L (-3-3); HCO3 ABG 28 mmol/L (21-28); PCO2 ABG 43 mmHg (35-46); PO2 ABG 92 mmHg (65-108); SAT O2 ABG 96 % (92-99)
--- NOTE | 2020-10-10 08:03 | RAD ---
XR CHEST 1V INDICATION: RF [id number]. COMPARISON STUDY: 10/08/2020. FINDINGS: Life Support Devices: Stable endotracheal tube, enteric tube, right PICC. Lungs: Normal lung volume. Stable diffuse bilateral opacities. Pleura: No pleural effusion or pneumothorax. Heart and Mediastinum: Stable cardiomediastinal silhouette and great vessels. Bones and Soft Tissues: Stable regional skeleton and soft tissues. IMPRESSION: 1. Stable life support devices. 2. Stable diffuse bilateral opacities. Electronically signed by: Everett Gomez MD (10/10/2020 8:01 AM) [id number]
[2020-10-10] MEDS: SENNOSIDES/DOCUSATE 8.6/50MG TABLET. PO SCH ×2 (08:33→20:52)
[2020-10-10] MEDS: ASCORBIC ACID 1,000 MG TABLET PO SCH ×3 (08:33→20:51)
[2020-10-10] MEDS: ASPIRIN CHEWABLE 81 MG TABLET. PO SCH (08:33)
[2020-10-10] MEDS: MULTIVITAMINS,THERAPEUTIC 5 ML ORAL LIQUID. PEG SCH (08:33)
[2020-10-10] MEDS: PANTOPRAZOLE IV PUSH 40 MG VIAL. IVP SCH (08:33)
[2020-10-10] MEDS: ENOXAPARIN 40 MG/0.4 ML SYRINGE. SQ SCH ×2 (08:33→20:52)
[2020-10-10] MEDS: ZINC SULFATE 220 MG CAPSULE. PO SCH (08:33)
[2020-10-10 08:34] LABS: FIO2 ABG 45
[2020-10-10] MEDS: NYSTATIN TOPICAL POWDER 15GM BOTTLE. TP SCH ×2 (08:34→20:55)
[2020-10-10] MEDS: INSULIN GLARGINE SYRINGE. SQ SCH ×2 (08:38→20:53)
--- NOTE | 2020-10-10 08:55 | PDOC ---
[facility] PROGRESS NOTE Date of Service DOS: DATE: 10/10/20 TIME: 08:55 Chief Complaint Chief Complaint A/P: Acute COVID-19 pneumonia Acute hypoxic respiratory failure Sepsis Bradycardia History of diabetes mellitus type 2 History of hypertension History of dyslipidemia FEN - NGT feeds Lovenox for DVT prophylaxis Protonix GI prophylaxis Full code Discussed with RN and SW Disposition patient management as above Surrogate decision maker is the Jenni Morrissey History of Present Illness History of Present Illness Mr Morrissey is a 65-year-old white male w/ PMHx HTN, DM2, HLD, GERD presented to ED due to worsening cough and shortness of breath; patient also experiencing vomiting and diarrhea. Patient was recently diagnosed with COVID-19 on September 11 and has been doing well since that until a few days prior to arrival when his symptoms acutely worsened this morning. Has not received Covid vaccine. Close contacts at home have very similar symptoms. 09/21: Patient saturating 98% on 10 L nasal cannula. Increasing O2 requirements may consider pulmonology consult. On remdesivir, steroids 09/22: Patient saturating 91% on 10 L nasal cannula. Shortness of breath with ambulation. Combivent inhaler ordered today. 09/23: Patient is requiring increasing O2 requirements. Saturating 88% on 15 L nonrebreather and also nasal cannula. ICU transfer and intubated. 09/24: In ICU on vent. Afebrile, currently breathing FiO2 100%, PEEP 10. Final dose of remdesivir today. 09/25: Afebrile. On vent with FiO2 80%, PEEP 9. He has completed course of remdesivir. IV steroids for total dose 10 days and IV Zosyn. 09/26: Afebrile. Remains on vent with FiO2 70%, PEEP 8. Completed remdesivir. Continue prophylactic IV Zosyn. 09/27: No acute events overnight. Afebrile. On vent with FiO2 70%, PEEP 8. Cont IV antibiotics and steroids, with taper. Completed remdesivir. 09/28: Afebrile. On vent with FiO2 90%, PEEP 8. Completed remdesivir. Continue IV antibiotics. KUB with good OGT placement 09/29: Afebrile. On vent with increased oxygen requirement, FiO2 100%, PEEP 8. CXR increasing bilateral airspace opacities 09/30: On vent with FiO2 90%, PEEP 8. Afebrile. Steroids have been increased to dexamethasone 20 mg for 5 days, 10 mg for 5 days 10/01: No acute events overnight. Patient saturating 97% on vent settings of 22/500/80/8. Currently sedated and intubated. 10/02: Patient saturating 95% on vent settings of 22/500/75/7. ABG expected at 7.4 /72/28. Currently intubated and sedated. 10/03: No acute events overnight. Patient saturating 94% on vent settings of 22/500/75/7. Improved sugar control. 10/04: Saturating 100% on vent settings of 22/500/65/7. Last ABG show pH of 7.5 //28. Adjustments to vent settings by pulmonology. 10/05: No acute events overnight. Patient saturating 96% on vent settings of 20/500/65/7. Discussed prognosis with family. 10/06: No acute events overnight. Patient saturating 95% on vent settings of 20/500/50/6. No other concerns from nursing at this time. 10/07: No acute events overnight. Patient saturating 96% on vent settings of 20/500/50/6. T-max of 100.3. 10/08: Afebrile overnight. Sedated with propofol Versed and fentanyl PEEP of 6 FiO2 50% ABG 7.4 /. Discussed with bedside. 10/09: T-max 100.3 F. Sedated with propofol Versed fentanyl, O2 saturations 96%, ABG 7.4 / on FiO2 50% and normal PEEP of 6. D/w bedside. Good UOP Afebrile. Sedation wean this morning respirations increased significantly back on sedation. ABG 7.40 FiO2 45% PEEP 6. Discussed with bedside O2 is significantly improving. A total of 36 minutes of critical care time was spent in reviewing chart, labs, and images. Discussed with RN and SW. Vitals/I&O Vitals/I&O: Vital Signs Date Time Temp Pulse Resp B/P (MAP) Pulse Ox O2 Delivery O2 Flow Rate FiO2 10/10/20 08:00 26 95 Ventilator 10/10/20 07:00 78 168/75 (106) 10/10/20 04:00 98.9 98.9 10/09/20 19:00 4.0 I & O 10/09/20 10/09/20 10/10/20 15:00 23:00 07:00 Intake Total 293 ml 1767 ml 1259.6 ml Output Total 845 ml 1520 ml 1250 ml Balance -552 ml 247 ml 9.6 ml Physical Exam General: Other (Intubated and sedated) Heart: Regular rate Lungs: Crackles Abdomen: Normal bowel sounds Extremities: No clubbing Skin: No rashes, No significant lesion Labs Labs: Laboratory Tests Test 10/09/20 12:09 10/09/20 17:36 10/10/20 00:00 10/10/20 06:40 Glucose (Fingerstick) 161 mg/dL (70-99) 179 mg/dL (70-99) 134 mg/dL (70-99) White Blood Count 8.1 x10^3/uL (4.0-11.0) Red Blood Count 3.75 x10^6/uL (4.30-5.70) Hemoglobin 11.1 g/dL (13.0-17.5) Hematocrit 33.1 % (39.0-53.0) Mean Corpuscular Volume 88 fL (79-100) Mean Corpuscular Hemoglobin 30 pg (25-35) Mean Corpuscular Hemoglobin Concent 34 g/dL (31-37) Red Cell Distribution Width 14.2 % (11.5-14.5) Platelet Count 187 x10^3/uL (140-400) Sodium Level 137 mmol/L (136-145) Potassium Level 4.2 mmol/L (3.5-5.1) Chloride Level 102 mmol/L (98-107) Carbon Dioxide Level 29 mmol/L (21-32) Anion Gap 6 (6-14) Blood Urea Nitrogen 12 mg/dL (8-26) Creatinine 0.7 mg/dL (0.7-1.3) Estimated GFR (Cockcroft-Gault) 113.9 BUN/Creatinine Ratio 17 (6-20) Glucose Level 192 mg/dL (70-99) Calcium Level 8.4 mg/dL (8.5-10.1) Total Bilirubin 0.7 mg/dL (0.2-1.0) Aspartate Amino Transf (AST/SGOT) 25 U/L (15-37) Alanine Aminotransferase (ALT/SGPT) 54 U/L (16-63) Alkaline Phosphatase 99 U/L (46-116) Total Protein 5.8 g/dL (6.4-8.2) Albumin 1.7 g/dL (3.4-5.0) Albumin/Globulin Ratio 0.4 (1.0-1.7) Test 10/10/20 06:42 10/10/20 07:39 Glucose (Fingerstick) 183 mg/dL (70-99) O2 Saturation 96 % (92-99) Arterial Blood pH 7.43 (7.35-7.45) Arterial Blood pCO2 at Patient Temp 43 mmHg (35-46) Arterial Blood pO2 at Patient Temp 92 mmHg (65-108) Arterial Blood HCO3 28 mmol/L (21-28) Arterial Blood Base Excess 3 mmol/L (-3-3) FiO2 45 Assessment and Plan Assessmemt and Plan Problems Medical Problems: (1) Bilateral pulmonary infiltrates on CXR Status: Acute (2) Fever Status: Acute (3) Hypoxia Status: Acute (4) Lab test positive for detection of COVID-19 virus Status: Acute Comment Review of Relevant I have reviewed the following items lukasz (where applicable) has been applied. Medications: Current Medications Medications (Trade) Dose Ordered Sig/Khadar Route PRN Reason Start Time Stop Time Status Last Admin Dose Admin Fentanyl Citrate 30 ml @ 1.5 mls/hr CONT PRN PRN IV SEE PROTOCOL 10/09/20 16:30 10/10/20 07:39 Justifications for Admission Other Justification ALCIDES DAVIS MD Oct 10, 2020 08:55
--- NOTE | 2020-10-10 09:20 | PDOC ---
PULMONARY PROGRESS NOTES DATE: 10/10/20 TIME: 09:18 Subjective Patient remains on vent support. Oxygen requirement continues to slowly improve. Afebrile Versed has been weaned off along with fentanyl. 50% FiO2 and 6 of PEEP. Vitals Vital Signs Date Time Temp Pulse Resp B/P (MAP) Pulse Ox O2 Delivery O2 Flow Rate FiO2 10/10/20 09:00 76 26 162/73 (102) 95 Ventilator 10/10/20 08:00 99.3 99.3 10/09/20 19:00 4.0 Comments ros unable to obtain on vent sedated HEENT: Other (nc at perrl nose clear orally intubated neck no lad no thyromegaly ) Lungs: Crackles Cardiovascular: S1, S2 Abdomen: Soft, Non-tender Extremities: No Edema Skin: Warm Labs Laboratory Tests Test 10/08/20 11:58 10/08/20 17:41 10/08/20 23:57 10/09/20 06:10 Glucose (Fingerstick) 134 mg/dL (70-99) 149 mg/dL (70-99) 121 mg/dL (70-99) 164 mg/dL (70-99) Test 10/09/20 07:25 10/09/20 12:09 10/09/20 17:36 10/10/20 00:00 O2 Saturation 93 % (92-99) Arterial Blood pH 7.46 (7.35-7.45) Arterial Blood pCO2 at Patient Temp 37 mmHg (35-46) Arterial Blood pO2 at Patient Temp 68 mmHg (65-108) Arterial Blood HCO3 26 mmol/L (21-28) Arterial Blood Base Excess 2 mmol/L (-3-3) FiO2 50 Glucose (Fingerstick) 161 mg/dL (70-99) 179 mg/dL (70-99) 134 mg/dL (70-99) Test 10/10/20 06:40 10/10/20 06:42 10/10/20 07:39 White Blood Count 8.1 x10^3/uL (4.0-11.0) Red Blood Count 3.75 x10^6/uL (4.30-5.70) Hemoglobin 11.1 g/dL (13.0-17.5) Hematocrit 33.1 % (39.0-53.0) Mean Corpuscular Volume 88 fL (79-100) Mean Corpuscular Hemoglobin 30 pg (25-35) Mean Corpuscular Hemoglobin Concent 34 g/dL (31-37) Red Cell Distribution Width 14.2 % (11.5-14.5) Platelet Count 187 x10^3/uL (140-400) Sodium Level 137 mmol/L (136-145) Potassium Level 4.2 mmol/L (3.5-5.1) Chloride Level 102 mmol/L (98-107) Carbon Dioxide Level 29 mmol/L (21-32) Anion Gap 6 (6-14) Blood Urea Nitrogen 12 mg/dL (8-26) Creatinine 0.7 mg/dL (0.7-1.3) Estimated GFR (Cockcroft-Gault) 113.9 BUN/Creatinine Ratio 17 (6-20) Glucose Level 192 mg/dL (70-99) Calcium Level 8.4 mg/dL (8.5-10.1) Total Bilirubin 0.7 mg/dL (0.2-1.0) Aspartate Amino Transf (AST/SGOT) 25 U/L (15-37) Alanine Aminotransferase (ALT/SGPT) 54 U/L (16-63) Alkaline Phosphatase 99 U/L (46-116) Total Protein 5.8 g/dL (6.4-8.2) Albumin 1.7 g/dL (3.4-5.0) Albumin/Globulin Ratio 0.4 (1.0-1.7) Glucose (Fingerstick) 183 mg/dL (70-99) O2 Saturation 96 % (92-99) Arterial Blood pH 7.43 (7.35-7.45) Arterial Blood pCO2 at Patient Temp 43 mmHg (35-46) Arterial Blood pO2 at Patient Temp 92 mmHg (65-108) Arterial Blood HCO3 28 mmol/L (21-28) Arterial Blood Base Excess 3 mmol/L (-3-3) FiO2 45 Laboratory Tests Test 10/09/20 12:09 10/09/20 17:36 10/10/20 00:00 10/10/20 06:40 Glucose (Fingerstick) 161 mg/dL (70-99) 179 mg/dL (70-99) 134 mg/dL (70-99) White Blood Count 8.1 x10^3/uL (4.0-11.0) Red Blood Count 3.75 x10^6/uL (4.30-5.70) Hemoglobin 11.1 g/dL (13.0-17.5) Hematocrit 33.1 % (39.0-53.0) Mean Corpuscular Volume 88 fL (79-100) Mean Corpuscular Hemoglobin 30 pg (25-35) Mean Corpuscular Hemoglobin Concent 34 g/dL (31-37) Red Cell Distribution Width 14.2 % (11.5-14.5) Platelet Count 187 x10^3/uL (140-400) Sodium Level 137 mmol/L (136-145) Potassium Level 4.2 mmol/L (3.5-5.1) Chloride Level 102 mmol/L (98-107) Carbon Dioxide Level 29 mmol/L (21-32) Anion Gap 6 (6-14) Blood Urea Nitrogen 12 mg/dL (8-26) Creatinine 0.7 mg/dL (0.7-1.3) Estimated GFR (Cockcroft-Gault) 113.9 BUN/Creatinine Ratio 17 (6-20) Glucose Level 192 mg/dL (70-99) Calcium Level 8.4 mg/dL (8.5-10.1) Total Bilirubin 0.7 mg/dL (0.2-1.0) Aspartate Amino Transf (AST/SGOT) 25 U/L (15-37) Alanine Aminotransferase (ALT/SGPT) 54 U/L (16-63) Alkaline Phosphatase 99 U/L (46-116) Total Protein 5.8 g/dL (6.4-8.2) Albumin 1.7 g/dL (3.4-5.0) Albumin/Globulin Ratio 0.4 (1.0-1.7) Test 10/10/20 06:42 10/10/20 07:39 Glucose (Fingerstick) 183 mg/dL (70-99) O2 Saturation 96 % (92-99) Arterial Blood pH 7.43 (7.35-7.45) Arterial Blood pCO2 at Patient Temp 43 mmHg (35-46) Arterial Blood pO2 at Patient Temp 92 mmHg (65-108) Arterial Blood HCO3 28 mmol/L (21-28) Arterial Blood Base Excess 3 mmol/L (-3-3) FiO2 45 Medications Active Scripts Medications Dose Route/Sig Max Daily Dose Days Date Category Icosapent Ethyl 1 Gm Capsule 2 Cap PO BID 09/20/20 Reported Metformin Hcl 1,000 Mg Tablet 1 Tab PO BID 09/20/20 Reported Rybelsus (Semaglutide) 7 Mg Tablet 1 Tab PO DAILY 09/20/20 Reported Farxiga (Dapagliflozin Propanediol) 10 Mg Tablet 1 Tab PO DAILY 09/20/20 Reported Trelegy Ellipta 100-62.5-25 (Fluticasone/Umeclidin/Vilanter) 1 Each Blst.w.dev 1 Puff INH DAILY 09/20/20 Reported Benzonatate 200 Mg Capsule 1 Cap PO TID PRN 09/20/20 Reported Montelukast Sodium 10 Mg Tablet 1 Tab PO DAILY 09/20/20 Reported Loratadine 10 Mg Tablet 1 Tab PO DAILY 09/20/20 Reported Fluticasone Propionate Nasal [place] (Fluticasone Propionate) 16 Gm [place].susp 1 Sprays NS BID 09/20/20 Reported Simvastatin 20 Mg Tablet 1 Tab PO QHS 11/20/15 Reported Comments Chest x-ray reviewed 10/10/2020. Bilateral diffuse interstitial infiltrates. No pneumothorax. Chest x-ray reviewed 10/08/2020. Bilateral interstitial infiltrates, mild progression Chest x-ray reviewed 10/05/2020 Diffuse bilateral unchanged interstitial infiltrates related to Covid Impression . 1. Acute hypoxic respiratory failure secondary to COVID-19 viral pneumonia/acute lung injury.---intubated 09/23/20. Slowly improving oxygenation. 2. Abnormal chest x-ray consistent with mild infiltrates favoring COVID-19 viral pneumonia. 3. Leukopenia and thrombocytopenia due to COVID-19 viral pneumonia.--improved 4. No significant tobacco history. Plan . Updated 10/10/2020 Continue current ventilatory support setting reviewed 22/500/6/50%, wean peep and fio2 as tolerated . Monitor mental status while off sedation. Follow chest x-ray/ABG,--make changes as appropriate elevate hob Status post remdesivir --Patient has completed full course of steroids as well Continue tube feeding for nutritional support DVT/GI prophylaxis: Lovenox Discussed with patient's at the bedside. Explained to her that if patient does not tolerate weaning off sedation, then he may require tracheostomy. We will make the decision towards the end of the week. Discussed with RN and RT. Advance endotracheal tube by 1 cm Updated 10/09/2020 Continue current ventilatory support setting reviewed 500/6/50%, wean peep fio2 as tolerated decrease sedation sbt when on peep 5 fio2 40% Follow chest x-ray/ABG,--make changes as appropriate elevate hob Status post remdesivir --Patient has completed full course of steroids as well Continue tube feeding for nutritional support DVT/GI prophylaxis: Lovenox Discussed with patient's at the bedside. We will start weaning sedation and assess mental status. Discussed with RN and RT Updated 10/08/2020 Continue current ventilatory support setting reviewed 500/6/50%, wean peep fio2 as tolerated decrease sedation sbt when on peep 5 fio2 40% Follow chest x-ray/ABG,--make changes as appropriate elevate hob Status post remdesivir --Patient has completed full course of steroids as well Continue tube feeding for nutritional support DVT/GI prophylaxis: Lovenox Discussed with RN and RT Discussed with at the bedside. Updated 10/07/2020 Continue current ventilatory support setting reviewed 500/6/50%, wean peep fio2 as tolerated decrease sedation sbt when on peep 5 fio2 50% Follow chest x-ray/ABG,--make changes as appropriate elevate hob Status post remdesivir --Patient has completed full course of steroids as well Continue tube feeding for nutritional support DVT/GI prophylaxis: Lovenox Discussed with RN and RT Updated 10/06/2020 Continue current ventilatory support setting reviewed 500/7/50%, wean peep fio2 as tolerated Follow chest x-ray/ABG,--make changes as appropriate elevate hob Status post remdesivir --Patient has completed full course of steroids as well Continue tube feeding for nutritional support DVT/GI prophylaxis: Lovenox Discussed with RN and RT Once down to 40% oxygen and 5 of PEEP we will start weaning sedation. Updated 10/05/2020 Continue current ventilatory support 22/500/75/8, wean as tolerated Follow chest x-ray/ABG,--reduce FiO2 to 50%, current PEEP is at 7. Status post remdesivir --Patient has completed full course of steroids as well Continue tube feeding for nutritional support DVT/GI prophylaxis: Lovenox Discussed with RN and RT Patient is clinically improving. Once down to 40% oxygen and 5 of PEEP we will start weaning sedation. Critical care time 30 minutes Updated 10/04/2020 Continue current ventilatory support 22/500/75/8, wean as tolerated Follow chest x-ray/ABG,--reduce FiO2 to 65%, and reduce respiratory rate to 20 Status post remdesivir --Patient has completed full course of steroids as well Continue tube feeding for nutritional support DVT/GI prophylaxis: Lovenox Discussed with RN and RT Critical care time 30 minutes ERIC GOTTLIEB MD Oct 10, 2020 09:20
--- NOTE | 2020-10-10 16:31 | NUR ---
Patients sedation was turned off at 1000. Patient began to show signs of waking up. He was breathing comfortably around 24-28 RR with O2 sats in the upper 90's. At around 1130 though, the patient became tachypneic and hypertensive. Patient looked uncomfortable. Patient had his eyes slightly open and I asked if he could wiggle his toes and track my fingers with his eyes. He was able to do both mildly. Patient was placed back on propofol and fentanyl and shortly after he looked much more comfortable and was breathing around 24-28 again with less belly-breathing. Spoke to about todays events and the plan moving forward and she understood.
[2020-10-10] MEDS: SIMVASTATIN 20 MG TABLET PO SCH (20:52)
[2020-10-10] MEDS: DEXMEDETOMIDINE 400 MCG in IV NORMAL SALINE 100ML 96 ML IV PRN (21:43)
[2020-10-11] VITALS (24 sets, daily range): BP systolic 100–189; BP diastolic 50–100
[2020-10-11] MEDS: INSULIN LISPRO 300 UNITS/3 ML VIAL. SQ SCH ×4 (00:25→18:34)
[2020-10-11] MEDS: DEXMEDETOMIDINE 400 MCG in IV NORMAL SALINE 100ML 96 ML IV PRN ×4 (00:28→17:50)
[2020-10-11 06:25] LABS: HEMATOCRIT 32.5 % (39.0-53.0); RED BLOOD COUNT 3.66 x10^6/uL (4.30-5.70); RED CELL DISTRIBUTION WIDTH 14.5 % (11.5-14.5); WHITE BLOOD COUNT 8.9 x10^3/uL (4.0-11.0)
[2020-10-11 06:31] LABS: CALCIUM 8.7 mg/dL (8.5-10.1); CREATININE 0.6 mg/dL (0.7-1.3); GFR 136.1; POTASSIUM 4.3 mmol/L (3.5-5.1)
--- NOTE | 2020-10-11 07:59 | PDOC ---
[facility] PROGRESS NOTE Date of Service DOS: DATE: 10/11/20 TIME: 07:52 Chief Complaint Chief Complaint A/P: Acute COVID-19 pneumonia Acute hypoxic respiratory failure Sepsis Bradycardia History of diabetes mellitus type 2 History of hypertension History of dyslipidemia FEN - NGT feeds Lovenox for DVT prophylaxis Protonix GI prophylaxis Full code Discussed with RN and SW Disposition patient management as above Surrogate decision maker is the Jenni Morrissey History of Present Illness History of Present Illness Mr Morrissey is a 65-year-old white male w/ PMHx HTN, DM2, HLD, GERD presented to ED due to worsening cough and shortness of breath; patient also experiencing vomiting and diarrhea. Patient was recently diagnosed with COVID-19 on September 11 and has been doing well since that until a few days prior to arrival when his symptoms acutely worsened this morning. Has not received Covid vaccine. Close contacts at home have very similar symptoms. 09/21: Patient saturating 98% on 10 L nasal cannula. Increasing O2 requirements may consider pulmonology consult. On remdesivir, steroids 09/22: Patient saturating 91% on 10 L nasal cannula. Shortness of breath with ambulation. Combivent inhaler ordered today. 09/23: Patient is requiring increasing O2 requirements. Saturating 88% on 15 L nonrebreather and also nasal cannula. ICU transfer and intubated. 09/24: In ICU on vent. Afebrile, currently breathing FiO2 100%, PEEP 10. Final dose of remdesivir today. 09/25: Afebrile. On vent with FiO2 80%, PEEP 9. He has completed course of remdesivir. IV steroids for total dose 10 days and IV Zosyn. 09/26: Afebrile. Remains on vent with FiO2 70%, PEEP 8. Completed remdesivir. Continue prophylactic IV Zosyn. 09/27: No acute events overnight. Afebrile. On vent with FiO2 70%, PEEP 8. Cont IV antibiotics and steroids, with taper. Completed remdesivir. 09/28: Afebrile. On vent with FiO2 90%, PEEP 8. Completed remdesivir. Continue IV antibiotics. KUB with good OGT placement 09/29: Afebrile. On vent with increased oxygen requirement, FiO2 100%, PEEP 8. CXR increasing bilateral airspace opacities 09/30: On vent with FiO2 90%, PEEP 8. Afebrile. Steroids have been increased to dexamethasone 20 mg for 5 days, 10 mg for 5 days 10/01: No acute events overnight. Patient saturating 97% on vent settings of 22/500/80/8. Currently sedated and intubated. 10/02: Patient saturating 95% on vent settings of 22/500/75/7. ABG expected at 7.4 /72/28. Currently intubated and sedated. 10/03: No acute events overnight. Patient saturating 94% on vent settings of 22/500/75/7. Improved sugar control. 10/04: Saturating 100% on vent settings of 22/500/65/7. Last ABG show pH of 7.5 //28. Adjustments to vent settings by pulmonology. 10/05: No acute events overnight. Patient saturating 96% on vent settings of 20/500/65/7. Discussed prognosis with family. 10/06: No acute events overnight. Patient saturating 95% on vent settings of 20/500/50/6. No other concerns from nursing at this time. 10/07: No acute events overnight. Patient saturating 96% on vent settings of 20/500/50/6. T-max of 100.3. 10/08: Afebrile overnight. Sedated with propofol Versed and fentanyl PEEP of 6 FiO2 50% ABG 7.4 /. Discussed with bedside. 10/09: T-max 100.3 F. Sedated with propofol Versed fentanyl, O2 saturations 96%, ABG 7.4 / on FiO2 50% and normal PEEP of 6. D/w bedside. Good UOP 10/10: Afebrile. Sedation wean this morning respirations increased significantly back on sedation. ABG 7.40 FiO2 45% PEEP 6. Discussed with bedside O2 is significantly improving. Afebrile. Agitated with sedation wean added Precedex. FiO2 40% PEEP 5. Will attempt sedation wean again today. D/w bedside. A total of 30 minutes of critical care time was spent in reviewing chart, labs, and images. Discussed with RN and SW. Vitals/I&O Vitals/I&O: Vital Signs Date Time Temp Pulse Resp B/P (MAP) Pulse Ox O2 Delivery O2 Flow Rate FiO2 10/11/20 06:00 65 27 142/68 (92) 97 Ventilator 10/11/20 04:00 99.4 99.4 10/10/20 21:39 4.0 I & O 10/10/20 10/10/20 10/11/20 15:00 23:00 07:00 Intake Total 230 ml 1287 ml 1307.4 ml Output Total 1830 ml 910 ml 445 ml Balance -1600 ml 377 ml 862.4 ml Physical Exam General: Other (Intubated and sedated) Heart: Regular rate Lungs: Crackles Abdomen: Normal bowel sounds Extremities: No clubbing Skin: No rashes, No significant lesion Labs Labs: Laboratory Tests Test 10/10/20 12:23 10/10/20 18:04 10/11/20 00:19 10/11/20 06:10 Glucose (Fingerstick) 237 mg/dL (70-99) 192 mg/dL (70-99) 178 mg/dL (70-99) White Blood Count 8.9 x10^3/uL (4.0-11.0) Red Blood Count 3.66 x10^6/uL (4.30-5.70) Hemoglobin 11.0 g/dL (13.0-17.5) Hematocrit 32.5 % (39.0-53.0) Mean Corpuscular Volume 89 fL (79-100) Mean Corpuscular Hemoglobin 30 pg (25-35) Mean Corpuscular Hemoglobin Concent 34 g/dL (31-37) Red Cell Distribution Width 14.5 % (11.5-14.5) Platelet Count 183 x10^3/uL (140-400) Sodium Level 137 mmol/L (136-145) Potassium Level 4.3 mmol/L (3.5-5.1) Chloride Level 101 mmol/L (98-107) Carbon Dioxide Level 32 mmol/L (21-32) Anion Gap 4 (6-14) Blood Urea Nitrogen 13 mg/dL (8-26) Creatinine 0.6 mg/dL (0.7-1.3) Estimated GFR (Cockcroft-Gault) 136.1 Glucose Level 212 mg/dL (70-99) Calcium Level 8.7 mg/dL (8.5-10.1) Test 10/11/20 06:19 Glucose (Fingerstick) 181 mg/dL (70-99) Assessment and Plan Assessmemt and Plan Problems Medical Problems: (1) Bilateral pulmonary infiltrates on CXR Status: Acute (2) Fever Status: Acute (3) Hypoxia Status: Acute (4) Lab test positive for detection of COVID-19 virus Status: Acute Comment Review of Relevant I have reviewed the following items lukasz (where applicable) has been applied. Justifications for Admission Other Justification ALCIDES DAVIS MD Oct 11, 2020 07:59
[2020-10-11 08:15] LABS: BASE EXCESS ABG 3 mmol/L (-3-3); FIO2 ABG 40; HCO3 ABG 27 mmol/L (21-28); PCO2 ABG 39 mmHg (35-46); PO2 ABG 78 mmHg (65-108); SAT O2 ABG 95 % (92-99)
[2020-10-11] MEDS: NYSTATIN TOPICAL POWDER 15GM BOTTLE. TP SCH ×2 (09:00→20:55)
[2020-10-11] MEDS: PROPOFOL 100 ML IV PRN ×2 (09:00→21:03)
[2020-10-11] MEDS: ZINC SULFATE 220 MG CAPSULE. PO SCH (09:51)
[2020-10-11] MEDS: PANTOPRAZOLE IV PUSH 40 MG VIAL. IVP SCH (09:51)
[2020-10-11] MEDS: ASPIRIN CHEWABLE 81 MG TABLET. PO SCH (09:51)
[2020-10-11] MEDS: SENNOSIDES/DOCUSATE 8.6/50MG TABLET. PO SCH ×2 (09:51→20:50)
[2020-10-11] MEDS: ENOXAPARIN 40 MG/0.4 ML SYRINGE. SQ SCH ×2 (09:51→20:54)
[2020-10-11] MEDS: ASCORBIC ACID 1,000 MG TABLET PO SCH ×3 (09:51→20:53)
[2020-10-11] MEDS: MULTIVITAMINS,THERAPEUTIC 5 ML ORAL LIQUID. PEG SCH (09:51)
[2020-10-11] MEDS: INSULIN GLARGINE SYRINGE. SQ SCH ×2 (09:52→20:59)
--- NOTE | 2020-10-11 09:54 | PDOC ---
PULMONARY PROGRESS NOTES DATE: 10/11/20 TIME: 09:52 Subjective Patient remains on vent support. Oxygen requirement continues to slowly improve. Afebrile Versed has been weaned off along with fentanyl. Patient's respiratory rate increased. Precedex was initiated. 45% FiO2 and 6 of PEEP. Vitals Vital Signs Date Time Temp Pulse Resp B/P (MAP) Pulse Ox O2 Delivery O2 Flow Rate FiO2 10/11/20 09:42 98 Ventilator 10/11/20 06:00 65 27 142/68 (92) 10/11/20 04:00 99.4 99.4 10/10/20 21:39 4.0 Comments ros unable to obtain on vent sedated HEENT: Other (nc at perrl nose clear orally intubated neck no lad no thyromegaly ) Lungs: Crackles Cardiovascular: S1, S2 Abdomen: Soft, Non-tender Extremities: No Edema Skin: Warm Labs Laboratory Tests Test 10/09/20 12:09 10/09/20 17:36 10/10/20 00:00 10/10/20 06:40 Glucose (Fingerstick) 161 mg/dL (70-99) 179 mg/dL (70-99) 134 mg/dL (70-99) White Blood Count 8.1 x10^3/uL (4.0-11.0) Red Blood Count 3.75 x10^6/uL (4.30-5.70) Hemoglobin 11.1 g/dL (13.0-17.5) Hematocrit 33.1 % (39.0-53.0) Mean Corpuscular Volume 88 fL (79-100) Mean Corpuscular Hemoglobin 30 pg (25-35) Mean Corpuscular Hemoglobin Concent 34 g/dL (31-37) Red Cell Distribution Width 14.2 % (11.5-14.5) Platelet Count 187 x10^3/uL (140-400) Sodium Level 137 mmol/L (136-145) Potassium Level 4.2 mmol/L (3.5-5.1) Chloride Level 102 mmol/L (98-107) Carbon Dioxide Level 29 mmol/L (21-32) Anion Gap 6 (6-14) Blood Urea Nitrogen 12 mg/dL (8-26) Creatinine 0.7 mg/dL (0.7-1.3) Estimated GFR (Cockcroft-Gault) 113.9 BUN/Creatinine Ratio 17 (6-20) Glucose Level 192 mg/dL (70-99) Calcium Level 8.4 mg/dL (8.5-10.1) Total Bilirubin 0.7 mg/dL (0.2-1.0) Aspartate Amino Transf (AST/SGOT) 25 U/L (15-37) Alanine Aminotransferase (ALT/SGPT) 54 U/L (16-63) Alkaline Phosphatase 99 U/L (46-116) Total Protein 5.8 g/dL (6.4-8.2) Albumin 1.7 g/dL (3.4-5.0) Albumin/Globulin Ratio 0.4 (1.0-1.7) Test 10/10/20 06:42 10/10/20 07:39 10/10/20 12:23 10/10/20 18:04 Glucose (Fingerstick) 183 mg/dL (70-99) 237 mg/dL (70-99) 192 mg/dL (70-99) O2 Saturation 96 % (92-99) Arterial Blood pH 7.43 (7.35-7.45) Arterial Blood pCO2 at Patient Temp 43 mmHg (35-46) Arterial Blood pO2 at Patient Temp 92 mmHg (65-108) Arterial Blood HCO3 28 mmol/L (21-28) Arterial Blood Base Excess 3 mmol/L (-3-3) FiO2 45 Test 10/11/20 00:19 10/11/20 06:10 10/11/20 06:19 10/11/20 08:06 Glucose (Fingerstick) 178 mg/dL (70-99) 181 mg/dL (70-99) White Blood Count 8.9 x10^3/uL (4.0-11.0) Red Blood Count 3.66 x10^6/uL (4.30-5.70) Hemoglobin 11.0 g/dL (13.0-17.5) Hematocrit 32.5 % (39.0-53.0) Mean Corpuscular Volume 89 fL (79-100) Mean Corpuscular Hemoglobin 30 pg (25-35) Mean Corpuscular Hemoglobin Concent 34 g/dL (31-37) Red Cell Distribution Width 14.5 % (11.5-14.5) Platelet Count 183 x10^3/uL (140-400) Sodium Level 137 mmol/L (136-145) Potassium Level 4.3 mmol/L (3.5-5.1) Chloride Level 101 mmol/L (98-107) Carbon Dioxide Level 32 mmol/L (21-32) Anion Gap 4 (6-14) Blood Urea Nitrogen 13 mg/dL (8-26) Creatinine 0.6 mg/dL (0.7-1.3) Estimated GFR (Cockcroft-Gault) 136.1 Glucose Level 212 mg/dL (70-99) Calcium Level 8.7 mg/dL (8.5-10.1) O2 Saturation 95 % (92-99) Arterial Blood pH 7.46 (7.35-7.45) Arterial Blood pCO2 at Patient Temp 39 mmHg (35-46) Arterial Blood pO2 at Patient Temp 78 mmHg (65-108) Arterial Blood HCO3 27 mmol/L (21-28) Arterial Blood Base Excess 3 mmol/L (-3-3) FiO2 40 Laboratory Tests Test 10/10/20 12:23 10/10/20 18:04 10/11/20 00:19 10/11/20 06:10 Glucose (Fingerstick) 237 mg/dL (70-99) 192 mg/dL (70-99) 178 mg/dL (70-99) White Blood Count 8.9 x10^3/uL (4.0-11.0) Red Blood Count 3.66 x10^6/uL (4.30-5.70) Hemoglobin 11.0 g/dL (13.0-17.5) Hematocrit 32.5 % (39.0-53.0) Mean Corpuscular Volume 89 fL (79-100) Mean Corpuscular Hemoglobin 30 pg (25-35) Mean Corpuscular Hemoglobin Concent 34 g/dL (31-37) Red Cell Distribution Width 14.5 % (11.5-14.5) Platelet Count 183 x10^3/uL (140-400) Sodium Level 137 mmol/L (136-145) Potassium Level 4.3 mmol/L (3.5-5.1) Chloride Level 101 mmol/L (98-107) Carbon Dioxide Level 32 mmol/L (21-32) Anion Gap 4 (6-14) Blood Urea Nitrogen 13 mg/dL (8-26) Creatinine 0.6 mg/dL (0.7-1.3) Estimated GFR (Cockcroft-Gault) 136.1 Glucose Level 212 mg/dL (70-99) Calcium Level 8.7 mg/dL (8.5-10.1) Test 10/11/20 06:19 10/11/20 08:06 Glucose (Fingerstick) 181 mg/dL (70-99) O2 Saturation 95 % (92-99) Arterial Blood pH 7.46 (7.35-7.45) Arterial Blood pCO2 at Patient Temp 39 mmHg (35-46) Arterial Blood pO2 at Patient Temp 78 mmHg (65-108) Arterial Blood HCO3 27 mmol/L (21-28) Arterial Blood Base Excess 3 mmol/L (-3-3) FiO2 40 Medications Active Scripts Medications Dose Route/Sig Max Daily Dose Days Date Category Icosapent Ethyl 1 Gm Capsule 2 Cap PO BID 09/20/20 Reported Metformin Hcl 1,000 Mg Tablet 1 Tab PO BID 09/20/20 Reported Rybelsus (Semaglutide) 7 Mg Tablet 1 Tab PO DAILY 09/20/20 Reported Farxiga (Dapagliflozin Propanediol) 10 Mg Tablet 1 Tab PO DAILY 09/20/20 Reported Trelegy Ellipta 100-62.5-25 (Fluticasone/Umeclidin/Vilanter) 1 Each Blst.w.dev 1 Puff INH DAILY 09/20/20 Reported Benzonatate 200 Mg Capsule 1 Cap PO TID PRN 09/20/20 Reported Montelukast Sodium 10 Mg Tablet 1 Tab PO DAILY 09/20/20 Reported Loratadine 10 Mg Tablet 1 Tab PO DAILY 09/20/20 Reported Fluticasone Propionate Nasal [place] (Fluticasone Propionate) 16 Gm [place].susp 1 Sprays NS BID 09/20/20 Reported Simvastatin 20 Mg Tablet 1 Tab PO QHS 11/20/15 Reported Comments Chest x-ray reviewed 10/10/2020. Bilateral diffuse interstitial infiltrates. No pneumothorax. Chest x-ray reviewed 10/08/2020. Bilateral interstitial infiltrates, mild progression Chest x-ray reviewed 10/05/2020 Diffuse bilateral unchanged interstitial infiltrates related to Covid Impression . 1. Acute hypoxic respiratory failure secondary to COVID-19 viral pneumonia/acute lung injury.---intubated 8/15/21. Slowly improving oxygenation. 2. Abnormal chest x-ray consistent with mild infiltrates favoring COVID-19 viral pneumonia. 3. Leukopenia and thrombocytopenia due to COVID-19 viral pneumonia.--improved 4. No significant tobacco history. 5. Post sedation delirium Plan . Updated 10/11/2020 Continue current ventilatory support setting reviewed 22/500/5/40%, Monitor mental status while off sedation. At present has not tolerated off sedation well. Patient initiated on Precedex. Follow chest x-ray/ABG,--make changes as appropriate elevate hob Status post remdesivir --Patient has completed full course of steroids as well Continue tube feeding for nutritional support DVT/GI prophylaxis: Lovenox Discussed with patient's at the bedside. Explained to her that if patient does not tolerate weaning off sedation, then he may require tracheostomy. We will make the decision towards the end of the week. She agrees. Discussed with RN and RT. Updated 10/10/2020 Continue current ventilatory support setting reviewed 22/500/6/50%, wean peep and fio2 as tolerated . Monitor mental status while off sedation. Follow chest x-ray/ABG,--make changes as appropriate elevate hob Status post remdesivir --Patient has completed full course of steroids as well Continue tube feeding for nutritional support DVT/GI prophylaxis: Lovenox Discussed with patient's at the bedside. Explained to her that if patient does not tolerate weaning off sedation, then he may require tracheostomy. We will make the decision towards the end of the week. Discussed with RN and RT. Advance endotracheal tube by 1 cm Updated 10/09/2020 Continue current ventilatory support setting reviewed 22/500/6/50%, wean peep fio2 as tolerated decrease sedation sbt when on peep 5 fio2 40% Follow chest x-ray/ABG,--make changes as appropriate elevate hob Status post remdesivir --Patient has completed full course of steroids as well Continue tube feeding for nutritional support DVT/GI prophylaxis: Lovenox Discussed with patient's at the bedside. We will start weaning sedation and assess mental status. Discussed with RN and RT ERIC GOTTLIEB MD Oct 11, 2020 09:54
[2020-10-11] MEDS: SIMVASTATIN 20 MG TABLET PO SCH (20:53)
[2020-10-12] VITALS (24 sets, daily range): BP systolic 83–206; BP diastolic 43–96
[2020-10-12] MEDS: DEXMEDETOMIDINE 400 MCG in IV NORMAL SALINE 100ML 96 ML IV PRN ×6 (00:52→21:24)
[2020-10-12] MEDS: PROPOFOL 100 ML IV PRN ×5 (00:52→22:36)
[2020-10-12] MEDS: INSULIN LISPRO 300 UNITS/3 ML VIAL. SQ SCH ×4 (00:54→17:10)
--- NOTE | 2020-10-12 07:17 | PDOC ---
PULMONARY PROGRESS NOTES DATE: 10/12/20 TIME: 07:14 Subjective Patient currently sedated, 40% FiO2, 5 of PEEP. No overnight events Vitals Vital Signs Date Time Temp Pulse Resp B/P (MAP) Pulse Ox O2 Delivery O2 Flow Rate FiO2 10/12/20 05:28 100 Ventilator 10/12/20 01:29 23 10/12/20 01:00 44 106/53 (70) 10/12/20 00:00 98.4 98.4 Comments ros unable to obtain on vent sedated HEENT: Other Lungs: Clear Cardiovascular: S1, S2 Abdomen: Soft, Non-tender Extremities: No Edema Skin: Warm Labs Laboratory Tests Test 10/10/20 07:39 10/10/20 12:23 10/10/20 18:04 10/11/20 00:19 O2 Saturation 96 % (92-99) Arterial Blood pH 7.43 (7.35-7.45) Arterial Blood pCO2 at Patient Temp 43 mmHg (35-46) Arterial Blood pO2 at Patient Temp 92 mmHg (65-108) Arterial Blood HCO3 28 mmol/L (21-28) Arterial Blood Base Excess 3 mmol/L (-3-3) FiO2 45 Glucose (Fingerstick) 237 mg/dL (70-99) 192 mg/dL (70-99) 178 mg/dL (70-99) Test 10/11/20 06:10 10/11/20 06:19 10/11/20 08:06 10/11/20 12:35 White Blood Count 8.9 x10^3/uL (4.0-11.0) Red Blood Count 3.66 x10^6/uL (4.30-5.70) Hemoglobin 11.0 g/dL (13.0-17.5) Hematocrit 32.5 % (39.0-53.0) Mean Corpuscular Volume 89 fL (79-100) Mean Corpuscular Hemoglobin 30 pg (25-35) Mean Corpuscular Hemoglobin Concent 34 g/dL (31-37) Red Cell Distribution Width 14.5 % (11.5-14.5) Platelet Count 183 x10^3/uL (140-400) Sodium Level 137 mmol/L (136-145) Potassium Level 4.3 mmol/L (3.5-5.1) Chloride Level 101 mmol/L (98-107) Carbon Dioxide Level 32 mmol/L (21-32) Anion Gap 4 (6-14) Blood Urea Nitrogen 13 mg/dL (8-26) Creatinine 0.6 mg/dL (0.7-1.3) Estimated GFR (Cockcroft-Gault) 136.1 Glucose Level 212 mg/dL (70-99) Calcium Level 8.7 mg/dL (8.5-10.1) Glucose (Fingerstick) 181 mg/dL (70-99) 251 mg/dL (70-99) O2 Saturation 95 % (92-99) Arterial Blood pH 7.46 (7.35-7.45) Arterial Blood pCO2 at Patient Temp 39 mmHg (35-46) Arterial Blood pO2 at Patient Temp 78 mmHg (65-108) Arterial Blood HCO3 27 mmol/L (21-28) Arterial Blood Base Excess 3 mmol/L (-3-3) FiO2 40 Test 10/11/20 18:29 10/11/20 20:57 10/12/20 00:24 10/12/20 06:23 Glucose (Fingerstick) 200 mg/dL (70-99) 177 mg/dL (70-99) 195 mg/dL (70-99) 177 mg/dL (70-99) Laboratory Tests Test 10/11/20 08:06 10/11/20 12:35 10/11/20 18:29 10/11/20 20:57 O2 Saturation 95 % (92-99) Arterial Blood pH 7.46 (7.35-7.45) Arterial Blood pCO2 at Patient Temp 39 mmHg (35-46) Arterial Blood pO2 at Patient Temp 78 mmHg (65-108) Arterial Blood HCO3 27 mmol/L (21-28) Arterial Blood Base Excess 3 mmol/L (-3-3) FiO2 40 Glucose (Fingerstick) 251 mg/dL (70-99) 200 mg/dL (70-99) 177 mg/dL (70-99) Test 10/12/20 00:24 10/12/20 06:23 Glucose (Fingerstick) 195 mg/dL (70-99) 177 mg/dL (70-99) Medications Active Scripts Medications Dose Route/Sig Max Daily Dose Days Date Category Icosapent Ethyl 1 Gm Capsule 2 Cap PO BID 09/20/20 Reported Metformin Hcl 1,000 Mg Tablet 1 Tab PO BID 09/20/20 Reported Rybelsus (Semaglutide) 7 Mg Tablet 1 Tab PO DAILY 09/20/20 Reported Farxiga (Dapagliflozin Propanediol) 10 Mg Tablet 1 Tab PO DAILY 09/20/20 Reported Trelegy Ellipta 100-62.5-25 (Fluticasone/Umeclidin/Vilanter) 1 Each Blst.w.dev 1 Puff INH DAILY 09/20/20 Reported Benzonatate 200 Mg Capsule 1 Cap PO TID PRN 09/20/20 Reported Montelukast Sodium 10 Mg Tablet 1 Tab PO DAILY 09/20/20 Reported Loratadine 10 Mg Tablet 1 Tab PO DAILY 09/20/20 Reported Fluticasone Propionate Nasal [place] (Fluticasone Propionate) 16 Gm [place].susp 1 Sprays NS BID 09/20/20 Reported Simvastatin 20 Mg Tablet 1 Tab PO QHS 11/20/15 Reported Impression . 1. Acute hypoxic respiratory failure secondary to COVID-19 viral pneumonia/acute lung injury.---intubated 09/23/20. 2. Abnormal chest x-ray consistent with mild infiltrates favoring COVID-19 viral pneumonia. 3. Leukopenia and thrombocytopenia due to COVID-19 viral pneumonia.--improved 4. No significant tobacco history. 5. Encephalopathy, multifactorial, prior to intubation Plan . Updated 10/12 Continue current support, currently on 5 of PEEP 40% We will taper sedation, try pressure support ventilation If no improvement may require a tracheotomy Chest x-ray pending Status post steroids and remdesivir DVT GI prophylaxis Enteral nutrition Updated 10/11/2020 Continue current ventilatory support setting reviewed /5/40%, Monitor mental status while off sedation. At present has not tolerated off sedation well. Patient initiated on Precedex. Follow chest x-ray/ABG,--make changes as appropriate elevate hob Status post remdesivir --Patient has completed full course of steroids as well Continue tube feeding for nutritional support DVT/GI prophylaxis: Lovenox Discussed with patient's at the bedside. Explained to her that if patient does not tolerate weaning off sedation, then he may require tracheostomy. We will make the decision towards the end of the week. She agrees. Discussed with RN and RT. Updated 10/10/2020 Continue current ventilatory support setting reviewed /6/50%, wean peep and fio2 as tolerated . Monitor mental status while off sedation. Follow chest x-ray/ABG,--make changes as appropriate elevate hob Status post remdesivir --Patient has completed full course of steroids as well Continue tube feeding for nutritional support DVT/GI prophylaxis: Lovenox Discussed with patient's at the bedside. Explained to her that if patient does not tolerate weaning off sedation, then he may require tracheostomy. We will make the decision towards the end of the week. Discussed with RN and RT. Advance endotracheal tube by 1 cm CANDI MCCARTHY MD Oct 12, 2020 07:17
--- NOTE | 2020-10-12 07:51 | RAD ---
XR CHEST 1V INDICATION: Reason: RF 103 / Spl. Instructions: / History: . COMPARISON STUDY: 10/10/2020. FINDINGS: Life Support Devices: Stable endotracheal tube, enteric tube, right PICC. Lungs: Normal lung volume. Slightly improved diffuse bilateral opacities. Pleura: No pleural effusion or pneumothorax. Heart and Mediastinum: Stable cardiomediastinal silhouette and great vessels. Bones and Soft Tissues: Stable regional skeleton and soft tissues. IMPRESSION: 1. Stable life support devices. 2. Slightly improved diffuse bilateral opacities. Electronically signed by: Everett Gomez MD (10/12/2020 7:49 AM) [id number]
[2020-10-12 08:14] LABS: BASE EXCESS ABG 2 mmol/L (-3-3); HCO3 ABG 25 mmol/L (21-28); PCO2 ABG 35 mmHg (35-46); PO2 ABG 95 mmHg (65-108); SAT O2 ABG 97 % (92-99)
[2020-10-12 08:44] LABS: FIO2 ABG 40
[2020-10-12] MEDS: NYSTATIN TOPICAL POWDER 15GM BOTTLE. TP SCH ×2 (09:00→21:11)
[2020-10-12] MEDS: SENNOSIDES/DOCUSATE 8.6/50MG TABLET. PO SCH ×2 (09:00→20:58)
[2020-10-12] MEDS: ASPIRIN CHEWABLE 81 MG TABLET. PO SCH (09:09)
[2020-10-12] MEDS: PANTOPRAZOLE IV PUSH 40 MG VIAL. IVP SCH (09:09)
[2020-10-12] MEDS: ENOXAPARIN 40 MG/0.4 ML SYRINGE. SQ SCH ×2 (09:09→20:58)
[2020-10-12] MEDS: MULTIVITAMINS,THERAPEUTIC 5 ML ORAL LIQUID. PEG SCH (09:09)
[2020-10-12] MEDS: ASCORBIC ACID 1,000 MG TABLET PO SCH ×3 (09:10→20:57)
[2020-10-12] MEDS: ZINC SULFATE 220 MG CAPSULE. PO SCH (09:10)
[2020-10-12] MEDS: INSULIN GLARGINE SYRINGE. SQ SCH ×2 (09:11→21:04)
--- NOTE | 2020-10-12 11:12 | PDOC ---
[facility] [facility] PROGRESS NOTE Date of Service DOS: DATE: 10/12/20 TIME: 10:58 Chief Complaint Chief Complaint A/P: Acute COVID-19 pneumonia Acute hypoxic respiratory failure Sepsis Bradycardia History of diabetes mellitus type 2 History of hypertension History of dyslipidemia FEN - NGT feeds Lovenox for DVT prophylaxis Protonix GI prophylaxis Full code Discussed with RN and SW Disposition patient management as above Surrogate decision maker is the Jenni Morrissey History of Present Illness History of Present Illness Mr Morrissey is a 65-year-old white male w/ PMHx HTN, DM2, HLD, GERD presented to ED due to worsening cough and shortness of breath; patient also experiencing vomiting and diarrhea. Patient was recently diagnosed with COVID-19 on September 11 and has been doing well since that until a few days prior to arrival when his symptoms acutely worsened this morning. Has not received Covid vaccine. Close contacts at home have very similar symptoms. 09/21: Patient saturating 98% on 10 L nasal cannula. Increasing O2 requirements may consider pulmonology consult. On remdesivir, steroids 09/22: Patient saturating 91% on 10 L nasal cannula. Shortness of breath with ambulation. Combivent inhaler ordered today. 09/23: Patient is requiring increasing O2 requirements. Saturating 88% on 15 L nonrebreather and also nasal cannula. ICU transfer and intubated. 09/24: In ICU on vent. Afebrile, currently breathing FiO2 100%, PEEP 10. Final dose of remdesivir today. 09/25: Afebrile. On vent with FiO2 80%, PEEP 9. He has completed course of remdesivir. IV steroids for total dose 10 days and IV Zosyn. 09/26: Afebrile. Remains on vent with FiO2 70%, PEEP 8. Completed remdesivir. Continue prophylactic IV Zosyn. 09/27: No acute events overnight. Afebrile. On vent with FiO2 70%, PEEP 8. Cont IV antibiotics and steroids, with taper. Completed remdesivir. 09/28: Afebrile. On vent with FiO2 90%, PEEP 8. Completed remdesivir. Continue IV antibiotics. KUB with good OGT placement 09/29: Afebrile. On vent with increased oxygen requirement, FiO2 100%, PEEP 8. CXR increasing bilateral airspace opacities 09/30: On vent with FiO2 90%, PEEP 8. Afebrile. Steroids have been increased to dexamethasone 20 mg for 5 days, 10 mg for 5 days 10/01: No acute events overnight. Patient saturating 97% on vent settings of 22/500/80/8. Currently sedated and intubated. 10/02: Patient saturating 95% on vent settings of 22/500/75/7. ABG expected at 7.4 /72/28. Currently intubated and sedated. 10/03: No acute events overnight. Patient saturating 94% on vent settings of 22/500/75/7. Improved sugar control. 10/04: Saturating 100% on vent settings of 22/500/65/7. Last ABG show pH of 7.5 //28. Adjustments to vent settings by pulmonology. 10/05: No acute events overnight. Patient saturating 96% on vent settings of 20/500/65/7. Discussed prognosis with family. 10/06: No acute events overnight. Patient saturating 95% on vent settings of 20/500/50/6. No other concerns from nursing at this time. 10/07: No acute events overnight. Patient saturating 96% on vent settings of 20/500/50/6. T-max of 100.3. 10/08: Afebrile overnight. Sedated with propofol Versed and fentanyl PEEP of 6 FiO2 50% ABG 7.4 /. Discussed with bedside. 10/09: T-max 100.3 F. Sedated with propofol Versed fentanyl, O2 saturations 96%, ABG 7.4 / on FiO2 50% and normal PEEP of 6. D/w bedside. Good UOP 10/10: Afebrile. Sedation wean this morning respirations increased significantly back on sedation. ABG 7.40 / FiO2 45% PEEP 6. Discussed with bedside O2 is significantly improving. 10/11: Afebrile. Agitated with sedation wean added Precedex. FiO2 40% PEEP 5. Will attempt sedation wean again today. D/w bedside. Chest radiograph improved . ABG 7.4 / on 40% FiO2 PEEP 5. Respiratory rate 28 with wean this morning and blood pressure elevated. Will try to wean again later today. Discussed with at bedside A total of 30 minutes of critical care time was spent in reviewing chart, labs, and images. Discussed with RN and SW. Vitals/I&O Vitals/I&O: Vital Signs Date Time Temp Pulse Resp B/P (MAP) Pulse Ox O2 Delivery O2 Flow Rate FiO2 10/12/20 10:40 25 98 Ventilator 4.0 10/12/20 06:00 50 107/49 (68) 10/12/20 04:00 98.4 98.4 I & O 10/11/20 10/11/20 10/12/20 15:00 23:00 07:00 Intake Total 200 ml 900 ml 622 ml Output Total 450 ml 425 ml 875 ml Balance -250 ml 475 ml -253 ml Physical Exam General: Other (Intubated and sedated) Heart: Regular rate Lungs: Clear Abdomen: Normal bowel sounds Extremities: No clubbing Skin: No rashes, No significant lesion Labs Labs: Laboratory Tests Test 10/11/20 12:35 10/11/20 18:29 10/11/20 20:57 10/12/20 00:24 Glucose (Fingerstick) 251 mg/dL (70-99) 200 mg/dL (70-99) 177 mg/dL (70-99) 195 mg/dL (70-99) Test 10/12/20 06:23 10/12/20 08:09 Glucose (Fingerstick) 177 mg/dL (70-99) O2 Saturation 97 % (92-99) Arterial Blood pH 7.48 (7.35-7.45) Arterial Blood pCO2 at Patient Temp 35 mmHg (35-46) Arterial Blood pO2 at Patient Temp 95 mmHg (65-108) Arterial Blood HCO3 25 mmol/L (21-28) Arterial Blood Base Excess 2 mmol/L (-3-3) FiO2 40 Assessment and Plan Assessmemt and Plan Problems Medical Problems: (1) Bilateral pulmonary infiltrates on CXR Status: Acute (2) Fever Status: Acute (3) Hypoxia Status: Acute (4) Lab test positive for detection of COVID-19 virus Status: Acute Comment Review of Relevant I have reviewed the following items lukasz (where applicable) has been applied. Justifications for Admission Other Justification ALCIDES DAVIS MD Oct 12, 2020 11:12
[2020-10-12] MEDS: hydrALAZINE 20 MG/ML VIAL. IVP PRN (11:42)
--- NOTE | 2020-10-12 13:00 | NUR ---
[id number] CPAP trial ended d/t increase RR and BP. See chart for more info.
[2020-10-12] MEDS: ACETAMINOPHEN 325 MG TABLET. PO PRN (13:57)
[2020-10-12] MEDS: SIMVASTATIN 20 MG TABLET PO SCH (20:57)
[2020-10-12] MEDS ORDERED: VECURONIUM BOLUS 10 MG VIAL. IV PRN (23:45)
[2020-10-13] VITALS (24 sets, daily range): BP systolic 85–188; BP diastolic 40–83
[2020-10-13] MEDS: DEXMEDETOMIDINE 400 MCG in IV NORMAL SALINE 100ML 96 ML IV PRN ×7 (00:18→20:09)
[2020-10-13] MEDS: INSULIN LISPRO 300 UNITS/3 ML VIAL. SQ SCH ×4 (00:39→19:08)
[2020-10-13] MEDS: PROPOFOL 100 ML IV PRN ×4 (02:08→21:47)
[2020-10-13 05:39] LABS: HEMATOCRIT 29.4 % (39.0-53.0); HEMOGLOBIN 9.9 g/dL (13.0-17.5); RED BLOOD COUNT 3.32 x10^6/uL (4.30-5.70); RED CELL DISTRIBUTION WIDTH 14.5 % (11.5-14.5); WHITE BLOOD COUNT 11.5 x10^3/uL (4.0-11.0)
[2020-10-13 05:53] LABS: ALBUMIN 1.6 g/dL (3.4-5.0); ALBUMIN/GLOBULIN RATIO 0.4 (1.0-1.7); CALCIUM 8.5 mg/dL (8.5-10.1); CREATININE 0.8 mg/dL (0.7-1.3); GFR 97.6; POTASSIUM 3.3 mmol/L (3.5-5.1); TOTAL BILIRUBIN 0.6 mg/dL (0.2-1.0); TOTAL PROTEIN 5.7 g/dL (6.4-8.2)
--- NOTE | 2020-10-13 07:34 | PDOC ---
PULMONARY PROGRESS NOTES DATE: 10/13/20 TIME: 07:34 Subjective Patient did not do well yesterday on pressure support, increased work of breathing, increased heart rate at the bedside informed her of the above, updated her. No overnight event Vitals Vital Signs Date Time Temp Pulse Resp B/P (MAP) Pulse Ox O2 Delivery O2 Flow Rate FiO2 10/13/20 06:00 58 113/56 (75) 97 Ventilator 10/13/20 05:00 98.6 98.6 10/13/20 01:00 19 10/13/20 00:04 4.0 Comments ros unable to obtain on vent sedated HEENT: Other Lungs: Clear Cardiovascular: S1, S2 Abdomen: Soft, Non-tender Extremities: No Edema Skin: Warm Labs Laboratory Tests Test 10/11/20 08:06 10/11/20 12:35 10/11/20 18:29 10/11/20 20:57 O2 Saturation 95 % (92-99) Arterial Blood pH 7.46 (7.35-7.45) Arterial Blood pCO2 at Patient Temp 39 mmHg (35-46) Arterial Blood pO2 at Patient Temp 78 mmHg (65-108) Arterial Blood HCO3 27 mmol/L (21-28) Arterial Blood Base Excess 3 mmol/L (-3-3) FiO2 40 Glucose (Fingerstick) 251 mg/dL (70-99) 200 mg/dL (70-99) 177 mg/dL (70-99) Test 10/12/20 00:24 10/12/20 06:23 10/12/20 08:09 10/12/20 11:45 Glucose (Fingerstick) 195 mg/dL (70-99) 177 mg/dL (70-99) 205 mg/dL (70-99) O2 Saturation 97 % (92-99) Arterial Blood pH 7.48 (7.35-7.45) Arterial Blood pCO2 at Patient Temp 35 mmHg (35-46) Arterial Blood pO2 at Patient Temp 95 mmHg (65-108) Arterial Blood HCO3 25 mmol/L (21-28) Arterial Blood Base Excess 2 mmol/L (-3-3) FiO2 40 Test 10/12/20 20:51 10/13/20 00:22 10/13/20 05:20 10/13/20 06:06 Glucose (Fingerstick) 176 mg/dL (70-99) 168 mg/dL (70-99) 160 mg/dL (70-99) White Blood Count 11.5 x10^3/uL (4.0-11.0) Red Blood Count 3.32 x10^6/uL (4.30-5.70) Hemoglobin 9.9 g/dL (13.0-17.5) Hematocrit 29.4 % (39.0-53.0) Mean Corpuscular Volume 89 fL (79-100) Mean Corpuscular Hemoglobin 30 pg (25-35) Mean Corpuscular Hemoglobin Concent 34 g/dL (31-37) Red Cell Distribution Width 14.5 % (11.5-14.5) Platelet Count 163 x10^3/uL (140-400) Sodium Level 140 mmol/L (136-145) Potassium Level 3.3 mmol/L (3.5-5.1) Chloride Level 103 mmol/L (98-107) Carbon Dioxide Level 31 mmol/L (21-32) Anion Gap 6 (6-14) Blood Urea Nitrogen 19 mg/dL (8-26) Creatinine 0.8 mg/dL (0.7-1.3) Estimated GFR (Cockcroft-Gault) 97.6 BUN/Creatinine Ratio 24 (6-20) Glucose Level 173 mg/dL (70-99) Calcium Level 8.5 mg/dL (8.5-10.1) Total Bilirubin 0.6 mg/dL (0.2-1.0) Aspartate Amino Transf (AST/SGOT) 8 U/L (15-37) Alanine Aminotransferase (ALT/SGPT) 35 U/L (16-63) Alkaline Phosphatase 89 U/L (46-116) Total Protein 5.7 g/dL (6.4-8.2) Albumin 1.6 g/dL (3.4-5.0) Albumin/Globulin Ratio 0.4 (1.0-1.7) Laboratory Tests Test 10/12/20 08:09 10/12/20 11:45 10/12/20 20:51 10/13/20 00:22 O2 Saturation 97 % (92-99) Arterial Blood pH 7.48 (7.35-7.45) Arterial Blood pCO2 at Patient Temp 35 mmHg (35-46) Arterial Blood pO2 at Patient Temp 95 mmHg (65-108) Arterial Blood HCO3 25 mmol/L (21-28) Arterial Blood Base Excess 2 mmol/L (-3-3) FiO2 40 Glucose (Fingerstick) 205 mg/dL (70-99) 176 mg/dL (70-99) 168 mg/dL (70-99) Test 10/13/20 05:20 10/13/20 06:06 White Blood Count 11.5 x10^3/uL (4.0-11.0) Red Blood Count 3.32 x10^6/uL (4.30-5.70) Hemoglobin 9.9 g/dL (13.0-17.5) Hematocrit 29.4 % (39.0-53.0) Mean Corpuscular Volume 89 fL (79-100) Mean Corpuscular Hemoglobin 30 pg (25-35) Mean Corpuscular Hemoglobin Concent 34 g/dL (31-37) Red Cell Distribution Width 14.5 % (11.5-14.5) Platelet Count 163 x10^3/uL (140-400) Sodium Level 140 mmol/L (136-145) Potassium Level 3.3 mmol/L (3.5-5.1) Chloride Level 103 mmol/L (98-107) Carbon Dioxide Level 31 mmol/L (21-32) Anion Gap 6 (6-14) Blood Urea Nitrogen 19 mg/dL (8-26) Creatinine 0.8 mg/dL (0.7-1.3) Estimated GFR (Cockcroft-Gault) 97.6 BUN/Creatinine Ratio 24 (6-20) Glucose Level 173 mg/dL (70-99) Calcium Level 8.5 mg/dL (8.5-10.1) Total Bilirubin 0.6 mg/dL (0.2-1.0) Aspartate Amino Transf (AST/SGOT) 8 U/L (15-37) Alanine Aminotransferase (ALT/SGPT) 35 U/L (16-63) Alkaline Phosphatase 89 U/L (46-116) Total Protein 5.7 g/dL (6.4-8.2) Albumin 1.6 g/dL (3.4-5.0) Albumin/Globulin Ratio 0.4 (1.0-1.7) Glucose (Fingerstick) 160 mg/dL (70-99) Medications Active Scripts Medications Dose Route/Sig Max Daily Dose Days Date Category Icosapent Ethyl 1 Gm Capsule 2 Cap PO BID 09/20/20 Reported Metformin Hcl 1,000 Mg Tablet 1 Tab PO BID 09/20/20 Reported Rybelsus (Semaglutide) 7 Mg Tablet 1 Tab PO DAILY 09/20/20 Reported Farxiga (Dapagliflozin Propanediol) 10 Mg Tablet 1 Tab PO DAILY 09/20/20 Reported Trelegy Ellipta 100-62.5-25 (Fluticasone/Umeclidin/Vilanter) 1 Each Blst.w.dev 1 Puff INH DAILY 09/20/20 Reported Benzonatate 200 Mg Capsule 1 Cap PO TID PRN 09/20/20 Reported Montelukast Sodium 10 Mg Tablet 1 Tab PO DAILY 09/20/20 Reported Loratadine 10 Mg Tablet 1 Tab PO DAILY 09/20/20 Reported Fluticasone Propionate Nasal [place] [employer] (Fluticasone Propionate) 16 Gm [place] [employer].susp 1 Sprays NS BID 09/20/20 Reported Simvastatin 20 Mg Tablet 1 Tab PO QHS 11/20/15 Reported Impression . 1. Acute hypoxic respiratory failure secondary to COVID-19 viral pneumonia/acute lung injury.---intubated 09/23/20. 2. Abnormal chest x-ray consistent with mild infiltrates favoring COVID-19 viral pneumonia. 3. Leukopenia and thrombocytopenia due to COVID-19 viral pneumonia.--improved 4. No significant tobacco history. 5. Encephalopathy, multifactorial, prior to intubation 6. Delirium 7. Critical care myopathy Plan . Updated 10/13 Discussed with RN, will schedule Haldol Obtain baseline EKG Taper off sedation Discussed with , will consult surgery for tracheotomy next week Chest x-ray reviewed no significant change Monitor labs DVT GI prophylaxis Nutritional support Status post remdesivir and steroids updated 10/12 Continue current support, currently on 5 of PEEP 40% We will taper sedation, try pressure support ventilation If no improvement may require a tracheotomy Chest x-ray pending Status post steroids and remdesivir DVT GI prophylaxis Enteral nutrition CANDI MCCARTHY MD Oct 13, 2020 07:34
[2020-10-13] MEDS ORDERED: POTASSIUM BICARB 20 MEQ EFFERVESCENT TABLET. PO ONE (08:00)
--- NOTE | 2020-10-13 08:20 | PDOC ---
[employer] PROGRESS NOTE Date of Service DOS: DATE: 10/13/20 TIME: 08:17 Chief Complaint Chief Complaint A/P: Acute COVID-19 pneumonia Acute hypoxic respiratory failure Sepsis Bradycardia History of diabetes mellitus type 2 History of hypertension History of dyslipidemia FEN - NGT feeds Lovenox for DVT prophylaxis Protonix GI prophylaxis Full code Discussed with RN and SW Disposition patient management as above Surrogate decision maker is the Jenni Morrissey History of Present Illness History of Present Illness Mr Morrissey is a 65-year-old white male w/ PMHx HTN, DM2, HLD, GERD presented to ED due to worsening cough and shortness of breath; patient also experiencing vomiting and diarrhea. Patient was recently diagnosed with COVID-19 on September 11 and has been doing well since that until a few days prior to arrival when his symptoms acutely worsened this morning. Has not received Covid vaccine. Close contacts at home have very similar symptoms. 09/21: Patient saturating 98% on 10 L nasal cannula. Increasing O2 requirements may consider pulmonology consult. On remdesivir, steroids 09/22: Patient saturating 91% on 10 L nasal cannula. Shortness of breath with ambulation. Combivent inhaler ordered today. 09/23: Patient is requiring increasing O2 requirements. Saturating 88% on 15 L nonrebreather and also nasal cannula. ICU transfer and intubated. 09/24: In ICU on vent. Afebrile, currently breathing FiO2 100%, PEEP 10. Final dose of remdesivir today. 09/25: Afebrile. On vent with FiO2 80%, PEEP 9. He has completed course of remdesivir. IV steroids for total dose 10 days and IV Zosyn. 09/26: Afebrile. Remains on vent with FiO2 70%, PEEP 8. Completed remdesivir. Continue prophylactic IV Zosyn. 09/27: No acute events overnight. Afebrile. On vent with FiO2 70%, PEEP 8. Cont IV antibiotics and steroids, with taper. Completed remdesivir. 09/28: Afebrile. On vent with FiO2 90%, PEEP 8. Completed remdesivir. Continue IV antibiotics. KUB with good OGT placement 09/29: Afebrile. On vent with increased oxygen requirement, FiO2 100%, PEEP 8. CXR increasing bilateral airspace opacities 09/30: On vent with FiO2 90%, PEEP 8. Afebrile. Steroids have been increased to dexamethasone 20 mg for 5 days, 10 mg for 5 days 10/01: No acute events overnight. Patient saturating 97% on vent settings of 22/500/80/8. Currently sedated and intubated. 10/02: Patient saturating 95% on vent settings of 22/500/75/7. ABG expected at 7.4 /72/28. Currently intubated and sedated. 10/03: No acute events overnight. Patient saturating 94% on vent settings of 22/500/75/7. Improved sugar control. 10/04: Saturating 100% on vent settings of 22/500/65/7. Last ABG show pH of 7.5 //28. Adjustments to vent settings by pulmonology. 10/05: No acute events overnight. Patient saturating 96% on vent settings of 20/500/65/7. Discussed prognosis with family. 10/06: No acute events overnight. Patient saturating 95% on vent settings of 20/500/50/6. No other concerns from nursing at this time. 10/07: No acute events overnight. Patient saturating 96% on vent settings of 20/500/50/6. T-max of 100.3. 10/08: Afebrile overnight. Sedated with propofol Versed and fentanyl PEEP of 6 FiO2 50% ABG 7.4 /. Discussed with bedside. 10/09: T-max 100.3 F. Sedated with propofol Versed fentanyl, O2 saturations 96%, ABG 7.4 / on FiO2 50% and normal PEEP of 6. D/w bedside. Good UOP 10/10: Afebrile. Sedation wean this morning respirations increased significantly back on sedation. ABG 7.40 / FiO2 45% PEEP 6. Discussed with bedside O2 is significantly improving. 10/11: Afebrile. Agitated with sedation wean added Precedex. FiO2 40% PEEP 5. Will attempt sedation wean again today. D/w bedside. 10/12: Chest radiograph improved . ABG 7.4 / on 40% FiO2 PEEP 5. Respiratory rate 28 with wean this morning and blood pressure elevated. Will try to wean again later today. Discussed with at bedside Febrile 101.1 F overnight. Very agitated with attempted wean with increased BP ABG 7.471/38.4/71.2 on FiO2 40% PEEP 5. Respiratory blood and urine cultures for fever. Zosyn for coverage for possible VAP, f/u CXR Discussed with Pulmonology adding low-dose Haldol with vent weans will hold on propofol as QT sees around 470. Will maintain telemetry. As needed hydralazine and Vasotec for elevated blood pressure. Discussed with bedside CC time 38 minutes Vitals/I&O Vitals/I&O: Vital Signs Date Time Temp Pulse Resp B/P (MAP) Pulse Ox O2 Delivery O2 Flow Rate FiO2 10/13/20 07:00 56 124/66 (85) 95 Ventilator 10/13/20 05:00 98.6 98.6 10/13/20 01:00 19 10/13/20 00:04 4.0 I & O 10/12/20 10/12/20 10/13/20 15:00 23:00 07:00 Intake Total 280 ml 1815.72 ml 673 ml Output Total 575 ml 290 ml 520 ml Balance -295 ml 1525.72 ml 153 ml Physical Exam General: Other (Intubated and sedated) Heart: Regular rate Lungs: Clear Abdomen: Normal bowel sounds Extremities: No clubbing Skin: No rashes, No significant lesion Labs Labs: Laboratory Tests Test 10/12/20 11:45 10/12/20 20:51 10/13/20 00:22 10/13/20 05:20 Glucose (Fingerstick) 205 mg/dL (70-99) 176 mg/dL (70-99) 168 mg/dL (70-99) White Blood Count 11.5 x10^3/uL (4.0-11.0) Red Blood Count 3.32 x10^6/uL (4.30-5.70) Hemoglobin 9.9 g/dL (13.0-17.5) Hematocrit 29.4 % (39.0-53.0) Mean Corpuscular Volume 89 fL (79-100) Mean Corpuscular Hemoglobin 30 pg (25-35) Mean Corpuscular Hemoglobin Concent 34 g/dL (31-37) Red Cell Distribution Width 14.5 % (11.5-14.5) Platelet Count 163 x10^3/uL (140-400) Sodium Level 140 mmol/L (136-145) Potassium Level 3.3 mmol/L (3.5-5.1) Chloride Level 103 mmol/L (98-107) Carbon Dioxide Level 31 mmol/L (21-32) Anion Gap 6 (6-14) Blood Urea Nitrogen 19 mg/dL (8-26) Creatinine 0.8 mg/dL (0.7-1.3) Estimated GFR (Cockcroft-Gault) 97.6 BUN/Creatinine Ratio 24 (6-20) Glucose Level 173 mg/dL (70-99) Calcium Level 8.5 mg/dL (8.5-10.1) Total Bilirubin 0.6 mg/dL (0.2-1.0) Aspartate Amino Transf (AST/SGOT) 8 U/L (15-37) Alanine Aminotransferase (ALT/SGPT) 35 U/L (16-63) Alkaline Phosphatase 89 U/L (46-116) Total Protein 5.7 g/dL (6.4-8.2) Albumin 1.6 g/dL (3.4-5.0) Albumin/Globulin Ratio 0.4 (1.0-1.7) Test 10/13/20 06:06 Glucose (Fingerstick) 160 mg/dL (70-99) Assessment and Plan Assessmemt and Plan Problems Medical Problems: (1) Bilateral pulmonary infiltrates on CXR Status: Acute (2) Fever Status: Acute (3) Hypoxia Status: Acute (4) Lab test positive for detection of COVID-19 virus Status: Acute Comment Review of Relevant I have reviewed the following items lukasz (where applicable) has been applied. Medications: Current Medications Medications (Trade) Dose Ordered Sig/Khadar Route PRN Reason Start Time Stop Time Status Last Admin Dose Admin Hydralazine HCl (Apresoline Inj) 10 mg PRN Q4HRS PRN IVP ELEVATED BP, SEE COMMENTS 10/12/20 11:15 10/12/20 11:42 Vecuronium [place] (Norcuron Bolus) 6 mg PRN Q6HRS PRN IV VENTILATOR COMPLIANCE 10/12/20 23:45 10/12/20 23:39 Justifications for Admission Other Justification ALCIDES DAVIS MD Oct 13, 2020 08:20
[2020-10-13] MEDS ORDERED: HALOPERIDOL LACTATE 5 MG/ML VIAL. IVP SCH (08:30)
[2020-10-13] MEDS: ASPIRIN CHEWABLE 81 MG TABLET. PO SCH (08:40)
[2020-10-13] MEDS: ZINC SULFATE 220 MG CAPSULE. PO SCH (08:40)
[2020-10-13] MEDS: MULTIVITAMINS,THERAPEUTIC 5 ML ORAL LIQUID. PEG SCH (08:42)
[2020-10-13] MEDS: PANTOPRAZOLE IV PUSH 40 MG VIAL. IVP SCH (08:42)
[2020-10-13] MEDS: ENOXAPARIN 40 MG/0.4 ML SYRINGE. SQ SCH ×2 (08:42→20:08)
[2020-10-13] MEDS: INSULIN GLARGINE SYRINGE. SQ SCH ×2 (08:43→20:32)
[2020-10-13] MEDS: SENNOSIDES/DOCUSATE 8.6/50MG TABLET. PO SCH ×2 (08:43→20:09)
[2020-10-13] MEDS: ASCORBIC ACID 1,000 MG TABLET PO SCH ×3 (08:43→20:08)
[2020-10-13] MEDS: NYSTATIN TOPICAL POWDER 15GM BOTTLE. TP SCH ×2 (09:00→20:10)
[2020-10-13 09:05] LABS: BASE EXCESS ABG 4 mmol/L (-3-3); HCO3 ABG 27 mmol/L (21-28); PCO2 ABG 38 mmHg (35-46); PO2 ABG 71 mmHg (65-108); SAT O2 ABG 94 % (92-99)
--- NOTE | 2020-10-13 09:33 | EKG ---
[facility] [address] [place] [address] Test Date: 2020-10-13 Test Time: 09:27:51 Pat Name: SHANI PATTERSON Department: Room: 103 1 Gender: M Desk Director: DENICE : 1955 Requested By: CANDI MCCARTHY Order Number: [id number] Reading MD: Measurements Intervals Broussard Rate: 59 P: 56 SC: 144 QRS: 42 QRSD: 88 T: 88 QT: 472 QTc: 472 Interpretive Statements SINUS RHYTHM R-S TRANSITION ZONE IN V LEADS DISPLACED TO THE LEFT LOW LIMB LEAD VOLTAGE T ABNORMALITY IN ANTEROSEPTAL LEADS HIGH LATERAL LEADS PROLONGED QT ABNORMAL ECG RI6.02 Compared to ECG 09/20/2020 15:48:28 T-wave abnormality now present Prolonged QT interval now present Myocardial infarct finding no longer present
[2020-10-13] MEDS ORDERED: PIP/TAZO PER PHARMACY MC PRN (09:45)
[2020-10-13] MEDS: PIPERACILLIN/TAZOBACTAM 3.375 GM in IV NORMAL SALINE 50ML 50 ML IV SCH ×2 (10:20→19:06)
[2020-10-13] MEDS: HALOPERIDOL LACTATE 5 MG/ML VIAL. IVP PRN (10:29)
[2020-10-13] MEDS: ENALAPRILAT 1.25 MG/ML VIAL. IVP PRN ×2 (10:44→13:16)
[2020-10-13 10:51] LABS: FIO2 ABG 40% VENT
[2020-10-13] MEDS ORDERED: FUROSEMIDE 40 MG/4 ML VIAL. IVP ONE (14:45)
[2020-10-13] MEDS ORDERED: POTASSIUM CHLORIDE 20MEQ 100 ML IV ONE (15:00)
[2020-10-13] MEDS: SIMVASTATIN 20 MG TABLET PO SCH (20:07)
[2020-10-14] VITALS (23 sets, daily range): BP systolic 93–198; BP diastolic 40–85
[2020-10-14] MEDS: DEXMEDETOMIDINE 400 MCG in IV NORMAL SALINE 100ML 96 ML IV PRN ×6 (00:46→22:36)
[2020-10-14] MEDS: PIPERACILLIN/TAZOBACTAM 3.375 GM in IV NORMAL SALINE 50ML 50 ML IV SCH ×4 (00:47→17:04)
[2020-10-14] MEDS: INSULIN LISPRO 300 UNITS/3 ML VIAL. SQ SCH ×4 (00:50→17:13)
[2020-10-14] MEDS: PROPOFOL 100 ML IV PRN (03:25)
[2020-10-14 05:49] LABS: BASO % 0 % (0-3); EOS # 0.4 x10^3/uL (0.0-0.7); EOS % 6 % (0-3); HEMATOCRIT 27.4 % (39.0-53.0); HEMOGLOBIN 9.3 g/dL (13.0-17.5); LYMPH # 0.7 x10^3/uL (1.0-4.8); LYMPH % 9 % (24-48); MEAN CORPUSCULAR HEMOGLOBIN 30 pg (25-35); MEAN CORPUSCULAR HGB CONC 34 g/dL (31-37); MEAN CORPUSCULAR VOLUME 89 fL (79-100); MONO # 0.5 x10^3/uL (0.0-1.1); MONO % 7 % (0-9); NEUT # 5.9 x10^3/uL (1.8-7.7); NEUT % 78 % (31-73); PLATELET COUNT 158 x10^3/uL (140-400); RED BLOOD COUNT 3.09 x10^6/uL (4.30-5.70); RED CELL DISTRIBUTION WIDTH 14.7 % (11.5-14.5); WHITE BLOOD COUNT 7.6 x10^3/uL (4.0-11.0)
[2020-10-14 05:59] LABS: CALCIUM 8.2 mg/dL (8.5-10.1); CREATININE 0.8 mg/dL (0.7-1.3); GFR 97.6; MAGNESIUM 1.7 mg/dL (1.8-2.4); POTASSIUM 3.3 mmol/L (3.5-5.1)
[2020-10-14] MEDS ORDERED: POTASSIUM BICARB 20 MEQ EFFERVESCENT TABLET. PO ONE (07:30)
[2020-10-14] MEDS ORDERED: MAGNESIUM SULFATE 2GM 50 ML IV ONE (07:30)
--- NOTE | 2020-10-14 07:39 | RAD ---
XR CHEST 1V INDICATION: Reason: Worsening hypoxia / Spl. Instructions: / History: . COMPARISON STUDY: 10/12/2020. FINDINGS: Life Support Devices: Stable endotracheal tube, enteric tube, right PICC. Lungs: Normal lung volume. Stable diffuse bilateral opacities. Pleura: Stable pleural spaces. Heart and Mediastinum: Stable cardiomediastinal silhouette and great vessels. Bones and Soft Tissues: Stable regional skeleton and soft tissues. IMPRESSION: 1. Stable life support devices. 2. Stable diffuse bilateral opacities. Electronically signed by: Everett Gomez MD (10/14/2020 7:37 AM) [id number]
[2020-10-14] MEDS: HALOPERIDOL LACTATE 5 MG/ML VIAL. IVP PRN ×2 (08:56→17:05)
[2020-10-14] MEDS: ZINC SULFATE 220 MG CAPSULE. PO SCH (08:56)
[2020-10-14] MEDS: PANTOPRAZOLE IV PUSH 40 MG VIAL. IVP SCH (08:56)
[2020-10-14] MEDS: ENALAPRILAT 1.25 MG/ML VIAL. IVP PRN (08:56)
[2020-10-14] MEDS: ASCORBIC ACID 1,000 MG TABLET PO SCH ×3 (08:57→19:56)
[2020-10-14] MEDS: ENOXAPARIN 40 MG/0.4 ML SYRINGE. SQ SCH ×2 (08:57→21:07)
[2020-10-14] MEDS: MULTIVITAMINS,THERAPEUTIC 5 ML ORAL LIQUID. PEG SCH (08:58)
[2020-10-14] MEDS: INSULIN GLARGINE SYRINGE. SQ SCH ×2 (08:58→20:35)
[2020-10-14] MEDS: SENNOSIDES/DOCUSATE 8.6/50MG TABLET. PO SCH ×2 (08:58→19:56)
[2020-10-14] MEDS: NYSTATIN TOPICAL POWDER 15GM BOTTLE. TP SCH ×2 (09:00→21:07)
[2020-10-14] MEDS: ASPIRIN CHEWABLE 81 MG TABLET. PO SCH (09:02)
[2020-10-14] MEDS: ACETAMINOPHEN 325 MG TABLET. PO PRN (09:03)
[2020-10-14 09:28] LABS: BASE EXCESS ABG 4 mmol/L (-3-3); HCO3 ABG 28 mmol/L (21-28); PCO2 ABG 39 mmHg (35-46); PO2 ABG 98 mmHg (65-108); SAT O2 ABG 97 % (92-99)
--- NOTE | 2020-10-14 09:38 | PDOC ---
PULMONARY PROGRESS NOTES DATE: 10/14/20 TIME: 09:37 Subjective No overnight events Currently on assist control Vitals Vital Signs Date Time Temp Pulse Resp B/P (MAP) Pulse Ox O2 Delivery O2 Flow Rate FiO2 10/14/20 09:20 27 97 Ventilator 4.0 10/14/20 08:56 76 134/60 10/14/20 04:00 99.5 99.5 Comments ros unable to obtain on vent sedated HEENT: Other Lungs: Clear Cardiovascular: S1, S2 Abdomen: Soft, Non-tender Extremities: No Edema Skin: Warm Labs Laboratory Tests Test 10/12/20 11:45 10/12/20 20:51 10/13/20 00:22 10/13/20 05:20 Glucose (Fingerstick) 205 mg/dL (70-99) 176 mg/dL (70-99) 168 mg/dL (70-99) White Blood Count 11.5 x10^3/uL (4.0-11.0) Red Blood Count 3.32 x10^6/uL (4.30-5.70) Hemoglobin 9.9 g/dL (13.0-17.5) Hematocrit 29.4 % (39.0-53.0) Mean Corpuscular Volume 89 fL (79-100) Mean Corpuscular Hemoglobin 30 pg (25-35) Mean Corpuscular Hemoglobin Concent 34 g/dL (31-37) Red Cell Distribution Width 14.5 % (11.5-14.5) Platelet Count 163 x10^3/uL (140-400) Sodium Level 140 mmol/L (136-145) Potassium Level 3.3 mmol/L (3.5-5.1) Chloride Level 103 mmol/L (98-107) Carbon Dioxide Level 31 mmol/L (21-32) Anion Gap 6 (6-14) Blood Urea Nitrogen 19 mg/dL (8-26) Creatinine 0.8 mg/dL (0.7-1.3) Estimated GFR (Cockcroft-Gault) 97.6 BUN/Creatinine Ratio 24 (6-20) Glucose Level 173 mg/dL (70-99) Calcium Level 8.5 mg/dL (8.5-10.1) Total Bilirubin 0.6 mg/dL (0.2-1.0) Aspartate Amino Transf (AST/SGOT) 8 U/L (15-37) Alanine Aminotransferase (ALT/SGPT) 35 U/L (16-63) Alkaline Phosphatase 89 U/L (46-116) Total Protein 5.7 g/dL (6.4-8.2) Albumin 1.6 g/dL (3.4-5.0) Albumin/Globulin Ratio 0.4 (1.0-1.7) Test 10/13/20 06:06 10/13/20 09:30 10/13/20 12:00 10/13/20 19:03 Glucose (Fingerstick) 160 mg/dL (70-99) 218 mg/dL (70-99) 210 mg/dL (70-99) O2 Saturation 94 % (92-99) Arterial Blood pH 7.47 (7.35-7.45) Arterial Blood pCO2 at Patient Temp 38 mmHg (35-46) Arterial Blood pO2 at Patient Temp 71 mmHg (65-108) Arterial Blood HCO3 27 mmol/L (21-28) Arterial Blood Base Excess 4 mmol/L (-3-3) FiO2 40% vent Test 10/14/20 00:20 10/14/20 05:30 10/14/20 06:17 Glucose (Fingerstick) 196 mg/dL (70-99) 131 mg/dL (70-99) White Blood Count 7.6 x10^3/uL (4.0-11.0) Red Blood Count 3.09 x10^6/uL (4.30-5.70) Hemoglobin 9.3 g/dL (13.0-17.5) Hematocrit 27.4 % (39.0-53.0) Mean Corpuscular Volume 89 fL (79-100) Mean Corpuscular Hemoglobin 30 pg (25-35) Mean Corpuscular Hemoglobin Concent 34 g/dL (31-37) Red Cell Distribution Width 14.7 % (11.5-14.5) Platelet Count 158 x10^3/uL (140-400) Neutrophils (%) (Auto) 78 % (31-73) Lymphocytes (%) (Auto) 9 % (24-48) Monocytes (%) (Auto) 7 % (0-9) Eosinophils (%) (Auto) 6 % (0-3) Basophils (%) (Auto) 0 % (0-3) Neutrophils # (Auto) 5.9 x10^3/uL (1.8-7.7) Lymphocytes # (Auto) 0.7 x10^3/uL (1.0-4.8) Monocytes # (Auto) 0.5 x10^3/uL (0.0-1.1) Eosinophils # (Auto) 0.4 x10^3/uL (0.0-0.7) Basophils # (Auto) 0.0 x10^3/uL (0.0-0.2) Sodium Level 140 mmol/L (136-145) Potassium Level 3.3 mmol/L (3.5-5.1) Chloride Level 103 mmol/L (98-107) Carbon Dioxide Level 32 mmol/L (21-32) Anion Gap 5 (6-14) Blood Urea Nitrogen 22 mg/dL (8-26) Creatinine 0.8 mg/dL (0.7-1.3) Estimated GFR (Cockcroft-Gault) 97.6 Glucose Level 140 mg/dL (70-99) Calcium Level 8.2 mg/dL (8.5-10.1) Magnesium Level 1.7 mg/dL (1.8-2.4) Laboratory Tests Test 10/13/20 12:00 10/13/20 19:03 10/14/20 00:20 10/14/20 05:30 Glucose (Fingerstick) 218 mg/dL (70-99) 210 mg/dL (70-99) 196 mg/dL (70-99) White Blood Count 7.6 x10^3/uL (4.0-11.0) Red Blood Count 3.09 x10^6/uL (4.30-5.70) Hemoglobin 9.3 g/dL (13.0-17.5) Hematocrit 27.4 % (39.0-53.0) Mean Corpuscular Volume 89 fL (79-100) Mean Corpuscular Hemoglobin 30 pg (25-35) Mean Corpuscular Hemoglobin Concent 34 g/dL (31-37) Red Cell Distribution Width 14.7 % (11.5-14.5) Platelet Count 158 x10^3/uL (140-400) Neutrophils (%) (Auto) 78 % (31-73) Lymphocytes (%) (Auto) 9 % (24-48) Monocytes (%) (Auto) 7 % (0-9) Eosinophils (%) (Auto) 6 % (0-3) Basophils (%) (Auto) 0 % (0-3) Neutrophils # (Auto) 5.9 x10^3/uL (1.8-7.7) Lymphocytes # (Auto) 0.7 x10^3/uL (1.0-4.8) Monocytes # (Auto) 0.5 x10^3/uL (0.0-1.1) Eosinophils # (Auto) 0.4 x10^3/uL (0.0-0.7) Basophils # (Auto) 0.0 x10^3/uL (0.0-0.2) Sodium Level 140 mmol/L (136-145) Potassium Level 3.3 mmol/L (3.5-5.1) Chloride Level 103 mmol/L (98-107) Carbon Dioxide Level 32 mmol/L (21-32) Anion Gap 5 (6-14) Blood Urea Nitrogen 22 mg/dL (8-26) Creatinine 0.8 mg/dL (0.7-1.3) Estimated GFR (Cockcroft-Gault) 97.6 Glucose Level 140 mg/dL (70-99) Calcium Level 8.2 mg/dL (8.5-10.1) Magnesium Level 1.7 mg/dL (1.8-2.4) Test 10/14/20 06:17 Glucose (Fingerstick) 131 mg/dL (70-99) Medications Active Scripts Medications Dose Route/Sig Max Daily Dose Days Date Category Icosapent Ethyl 1 Gm Capsule 2 Cap PO BID 09/20/20 Reported Metformin Hcl 1,000 Mg Tablet 1 Tab PO BID 09/20/20 Reported Rybelsus (Semaglutide) 7 Mg Tablet 1 Tab PO DAILY 09/20/20 Reported Farxiga (Dapagliflozin Propanediol) 10 Mg Tablet 1 Tab PO DAILY 09/20/20 Reported Trelegy Ellipta 100-62.5-25 (Fluticasone/Umeclidin/Vilanter) 1 Each Blst.w.dev 1 Puff INH DAILY 09/20/20 Reported Benzonatate 200 Mg Capsule 1 Cap PO TID PRN 09/20/20 Reported Montelukast Sodium 10 Mg Tablet 1 Tab PO DAILY 09/20/20 Reported Loratadine 10 Mg Tablet 1 Tab PO DAILY 09/20/20 Reported Fluticasone Propionate Nasal [place] (Fluticasone Propionate) 16 Gm [place].susp 1 Sprays NS BID 09/20/20 Reported Simvastatin 20 Mg Tablet 1 Tab PO QHS 11/20/15 Reported Impression . 1. Acute hypoxic respiratory failure secondary to COVID-19 viral pneumonia/acute lung injury.---intubated 09/23/20. 2. Abnormal chest x-ray consistent with mild infiltrates favoring COVID-19 viral pneumonia. 3. Leukopenia and thrombocytopenia due to COVID-19 viral pneumonia.--improved 4. No significant tobacco history. 5. Encephalopathy, multifactorial, prior to intubation 6. Delirium 7. Critical care myopathy Plan . Updated 10/14 See yesterday's note Continue pressure support Discussed with RT and RN updated 10/13 Discussed with RN, will schedule Haldol Obtain baseline EKG Taper off sedation Discussed with , will consult surgery for tracheotomy next week Chest x-ray reviewed no significant change Monitor labs DVT GI prophylaxis Nutritional support Status post remdesivir and steroids updated 10/12 Continue current support, currently on 5 of PEEP 40% We will taper sedation, try pressure support ventilation If no improvement may require a tracheotomy Chest x-ray pending Status post steroids and remdesivir DVT GI prophylaxis Enteral nutrition CANDI MCCARTHY MD Oct 14, 2020 09:38
--- NOTE | 2020-10-14 09:50 | PDOC ---
[facility] PROGRESS NOTE Date of Service DOS: DATE: 10/14/20 TIME: 09:39 Chief Complaint Chief Complaint A/P: Acute COVID-19 pneumonia - s/p steroids, remdesivir Acute hypoxic respiratory failure - 2/2 COVID and ARDS Sepsis - due to above Bradycardia - unable to tolerate BB Diabetes mellitus type 2 HTN HLD CAD - 01/2012 with LESLEY to LAD (in-stent thrombosis) prompting CABG in the with GUZMAN to LAD. Acute on chronic combined systolic and diastolic CHF - lasix prn. Will echo and BNP h/o Cardiomyopathy - historically EF of 40-45%. FEN - NGT feeds PPX - Lovenox for DVT prophylaxis, Protonix GI prophylaxis Full code Dispo - ICU Discussed with RN and SW Disposition patient management as above Surrogate decision maker is the Jenni Morrissey History of Present Illness History of Present Illness Mr Morrissey is a 65-year-old white male w/ PMHx HTN, DM2, HLD, GERD, CAD s/p CABG 2011 presented to ED due to worsening cough and shortness of breath; patient also experiencing vomiting and diarrhea. Patient was recently diagnosed with COVID-19 on September 11 and has been doing well since that until a few days prior to arrival when his symptoms acutely worsened this morning. Has not received Covid vaccine. Close contacts at home have very similar symptoms. 09/21: Patient saturating 98% on 10 L nasal cannula. Increasing O2 requirements may consider pulmonology consult. On remdesivir, steroids 09/22: Patient saturating 91% on 10 L nasal cannula. Shortness of breath with ambulation. Combivent inhaler ordered today. 09/23: Patient is requiring increasing O2 requirements. Saturating 88% on 15 L nonrebreather and also nasal cannula. ICU transfer and intubated. 09/24: In ICU on vent. Afebrile, currently breathing FiO2 100%, PEEP 10. Final dose of remdesivir today. 09/25: Afebrile. On vent with FiO2 80%, PEEP 9. He has completed course of remdesivir. IV steroids for total dose 10 days and IV Zosyn. 09/26: Afebrile. Remains on vent with FiO2 70%, PEEP 8. Completed remdesivir. Continue prophylactic IV Zosyn. 09/27: No acute events overnight. Afebrile. On vent with FiO2 70%, PEEP 8. Cont IV antibiotics and steroids, with taper. Completed remdesivir. 09/28: Afebrile. On vent with FiO2 90%, PEEP 8. Completed remdesivir. Continue IV antibiotics. KUB with good OGT placement 09/29: Afebrile. On vent with increased oxygen requirement, FiO2 100%, PEEP 8. CXR increasing bilateral airspace opacities 09/30: On vent with FiO2 90%, PEEP 8. Afebrile. Steroids have been increased to dexamethasone 20 mg for 5 days, 10 mg for 5 days 10/01: No acute events overnight. Patient saturating 97% on vent settings of 22/500/80/8. Currently sedated and intubated. 10/02: Patient saturating 95% on vent settings of 22/500/75/7. ABG expected at 7.4 /72/28. Currently intubated and sedated. 10/03: No acute events overnight. Patient saturating 94% on vent settings of 22/500/75/7. Improved sugar control. 10/04: Saturating 100% on vent settings of 22/500/65/7. Last ABG show pH of 7.5 /113/28. Adjustments to vent settings by pulmonology. 10/05: No acute events overnight. Patient saturating 96% on vent settings of 20/500/65/7. Discussed prognosis with family. 10/06: No acute events overnight. Patient saturating 95% on vent settings of 20/500/50/6. No other concerns from nursing at this time. 10/07: No acute events overnight. Patient saturating 96% on vent settings of 20/500/50/6. T-max of 100.3. 10/08: Afebrile overnight. Sedated with propofol Versed and fentanyl PEEP of 6 FiO2 50% ABG 7.4 . Discussed with bedside. 10/09: T-max 100.3 F. Sedated with propofol Versed fentanyl, O2 saturations 96%, ABG 7.4 on FiO2 50% and normal PEEP of 6. D/w bedside. Good UOP 10/10: Afebrile. Sedation wean this morning respirations increased significantly back on sedation. ABG 7.40 FiO2 45% PEEP 6. Discussed with beds douglas O2 is significantly improving. 10/11: Afebrile. Agitated with sedation wean added Precedex. FiO2 40% PEEP 5. Will attempt sedation wean again today. D/w bedside. 10/12: Chest radiograph improved . ABG 7.4 8/35/95 on 40% FiO2 PEEP 5. Respiratory rate 28 with wean this morning and blood pressure elevated. Will try to wean again later today. Discussed with at bedside 10/13: Febrile 101.1 F overnight. Very agitated with attempted wean with increased BP ABG 7.471/38.4/71.2 on FiO2 40% PEEP 5. Respiratory blood and urine cultures for fever. Zosyn for coverage for possible VAP, f/u CXR 10/14: Afebrile. O2 saturations improved with furosemide. Urine output 2.7 L. K3.3 mag 1.7 WBC 7.6, Hb 9.3, platelets 158. Starting vent wean. Cultures pending, still on zosyn 10/13 Discussed with Pulmonology adding low-dose Haldol with vent weans will hold on propofol as QT sees around 470. Will maintain telemetry. As needed hydralazine and Vasotec for elevated blood pressure. Discussed with bedside CC time 34 minutes Vitals/I&O Vitals/I&O: Vital Signs Date Time Temp Pulse Resp B/P (MAP) Pulse Ox O2 Delivery O2 Flow Rate FiO2 10/14/20 09:20 27 97 Ventilator 4.0 10/14/20 08:56 76 134/60 10/14/20 04:00 99.5 99.5 I & O 10/13/20 10/13/20 10/14/20 15:00 23:00 07:00 Intake Total 280 ml 1377 ml 580 ml Output Total 625 ml 1915 ml 200 ml Balance -345 ml -538 ml 380 ml Physical Exam General: Other (Intubated and sedated) Heart: Regular rate Lungs: Clear Abdomen: Normal bowel sounds Extremities: No clubbing Skin: No rashes, No significant lesion Labs Labs: Laboratory Tests Test 10/13/20 12:00 10/13/20 19:03 10/14/20 00:20 10/14/20 05:30 Glucose (Fingerstick) 218 mg/dL (70-99) 210 mg/dL (70-99) 196 mg/dL (70-99) White Blood Count 7.6 x10^3/uL (4.0-11.0) Red Blood Count 3.09 x10^6/uL (4.30-5.70) Hemoglobin 9.3 g/dL (13.0-17.5) Hematocrit 27.4 % (39.0-53.0) Mean Corpuscular Volume 89 fL (79-100) Mean Corpuscular Hemoglobin 30 pg (25-35) Mean Corpuscular Hemoglobin Concent 34 g/dL (31-37) Red Cell Distribution Width 14.7 % (11.5-14.5) Platelet Count 158 x10^3/uL (140-400) Neutrophils (%) (Auto) 78 % (31-73) Lymphocytes (%) (Auto) 9 % (24-48) Monocytes (%) (Auto) 7 % (0-9) Eosinophils (%) (Auto) 6 % (0-3) Basophils (%) (Auto) 0 % (0-3) Neutrophils # (Auto) 5.9 x10^3/uL (1.8-7.7) Lymphocytes # (Auto) 0.7 x10^3/uL (1.0-4.8) Monocytes # (Auto) 0.5 x10^3/uL (0.0-1.1) Eosinophils # (Auto) 0.4 x10^3/uL (0.0-0.7) Basophils # (Auto) 0.0 x10^3/uL (0.0-0.2) Sodium Level 140 mmol/L (136-145) Potassium Level 3.3 mmol/L (3.5-5.1) Chloride Level 103 mmol/L (98-107) Carbon Dioxide Level 32 mmol/L (21-32) Anion Gap 5 (6-14) Blood Urea Nitrogen 22 mg/dL (8-26) Creatinine 0.8 mg/dL (0.7-1.3) Estimated GFR (Cockcroft-Gault) 97.6 Glucose Level 140 mg/dL (70-99) Calcium Level 8.2 mg/dL (8.5-10.1) Magnesium Level 1.7 mg/dL (1.8-2.4) Test 10/14/20 06:17 Glucose (Fingerstick) 131 mg/dL (70-99) Assessment and Plan Assessmemt and Plan Problems Medical Problems: (1) Bilateral pulmonary infiltrates on CXR Status: Acute (2) Fever Status: Acute (3) Hypoxia Status: Acute (4) Lab test positive for detection of COVID-19 virus Status: Acute Comment Review of Relevant I have reviewed the following items lukasz (where applicable) has been applied. Medications: Current Medications Medications (Trade) Dose Ordered Sig/Khadar Route PRN Reason Start Time Stop Time Status Last Admin Dose Admin Haloperidol Lactate (Haldol Inj) 2.5 mg PRN Q8HRS PRN IVP Agitation during vent wean 10/13/20 09:45 10/14/20 08:56 Piperacillin Sod/ Tazobactam Sod 3.375 gm/Sodium Chloride 50 ml @ 100 mls/hr Q6HRS IV 10/13/20 11:00 10/14/20 05:41 Furosemide (Lasix) 40 mg 1X ONCE IVP 10/13/20 14:45 10/13/20 14:46 DC 10/13/20 15:55 Potassium Chloride/Water 100 ml @ 100 mls/hr 1X ONCE IV 10/13/20 15:00 10/13/20 15:59 DC 10/13/20 15:55 Magnesium Sulfate 50 ml @ 25 mls/hr 1X ONCE IV 10/14/20 07:30 10/14/20 09:29 DC 10/14/20 08:59 Potassium Bicarbonate (Potassium Effervescent Tablet) 40 meq 1X ONCE PO 10/14/20 07:30 10/14/20 07:31 DC 10/14/20 08:57 Justifications for Admission Other Justification ALCIDES DAVIS MD Oct 14, 2020 09:50
[2020-10-14 12:33] LABS: BASE EXCESS ABG 6 mmol/L (-3-3); HCO3 ABG 30 mmol/L (21-28); PCO2 ABG 39 mmHg (35-46); PO2 ABG 91 mmHg (65-108); SAT O2 ABG 97 % (92-99)
--- NOTE | 2020-10-14 14:52 | NUR ---
[id number] CPAP trial pass. ABG obtained. Per Dr. Rabago patient extubated by RT. Spouse at bedside during trial and extubation. Patient currenly on Venti Mask 15L NC at 50%. No sign of resp. distress and VS within patient's normal limits. Will cont. to monitor.
[2020-10-14 16:28] LABS: FIO2 ABG 45% VENT
[2020-10-14 16:30] LABS: FIO2 ABG 45% PS 5 PEEP 5
[2020-10-14] MEDS: SIMVASTATIN 20 MG TABLET PO SCH (19:56)
[2020-10-15] VITALS (25 sets, daily range): BP systolic 110–189; BP diastolic 59–86
[2020-10-15] MEDS: PIPERACILLIN/TAZOBACTAM 3.375 GM in IV NORMAL SALINE 50ML 50 ML IV SCH ×4 (00:01→17:24)
[2020-10-15] MEDS: ENALAPRILAT 1.25 MG/ML VIAL. IVP PRN (00:07)
[2020-10-15] MEDS: DEXMEDETOMIDINE 400 MCG in IV NORMAL SALINE 100ML 96 ML IV PRN ×7 (00:17→22:48)
[2020-10-15] MEDS: INSULIN LISPRO 300 UNITS/3 ML VIAL. SQ SCH ×4 (05:54→17:31)
[2020-10-15] MEDS: MULTIVITAMINS,THERAPEUTIC 5 ML ORAL LIQUID. PEG SCH (07:12)
[2020-10-15] MEDS: ASPIRIN CHEWABLE 81 MG TABLET. PO SCH (07:12)
[2020-10-15] MEDS: SENNOSIDES/DOCUSATE 8.6/50MG TABLET. PO SCH ×2 (07:12→19:25)
[2020-10-15] MEDS: ZINC SULFATE 220 MG CAPSULE. PO SCH (07:12)
[2020-10-15] MEDS: INSULIN GLARGINE SYRINGE. SQ SCH ×2 (07:13→21:00)
[2020-10-15] MEDS: ASCORBIC ACID 1,000 MG TABLET PO SCH ×3 (07:13→19:26)
[2020-10-15] MEDS: PANTOPRAZOLE IV PUSH 40 MG VIAL. IVP SCH (07:44)
[2020-10-15] MEDS: hydrALAZINE 20 MG/ML VIAL. IVP PRN (07:45)
[2020-10-15] MEDS: ENOXAPARIN 40 MG/0.4 ML SYRINGE. SQ SCH (07:46)
[2020-10-15] MEDS: NYSTATIN TOPICAL POWDER 15GM BOTTLE. TP SCH ×2 (07:46→21:04)
[2020-10-15 08:39] LABS: CALCIUM 8.6 mg/dL (8.5-10.1); CREATININE 0.6 mg/dL (0.7-1.3); GFR 136.1; MAGNESIUM 1.8 mg/dL (1.8-2.4); POTASSIUM 3.5 mmol/L (3.5-5.1)
[2020-10-15] MEDS: METOPROLOL IV PUSH 5 MG/5 ML VIAL. IVP PRN ×3 (08:44→09:17)
[2020-10-15] MEDS: fentaNYL PF VIAL 100 MCG/2 ML VIAL IVP PRN ×3 (08:44→22:08)
--- NOTE | 2020-10-15 09:44 | NUR ---
Patient's heart rhythm changed from sinus rhythm to afib/rvr, stat bmp, magnesium, and 12-lead EKG ordered. Notified Dr. Guillory of rhythm change, received the order to give metoprolol IVP 5 mg q 5 minutes x3 doses, if that doesn't work then start cardizem, and if that doesn't get HR down to a goal of 110, then consult cardiology. See eMar for medication administration. Patient remains alert but drowsy, only complaint is slight shortness of breath but denies pain or dizziness. Patient's at bedside.
--- NOTE | 2020-10-15 09:47 | RAD ---
XR CHEST 1V INDICATION: RF. COMPARISON STUDY: 10/12/2020. FINDINGS: Life support devices: Stable right PICC. Endotracheal and enteric tubes have been removed. Lungs: Normal lung volume. Stable diffuse bilateral opacities. Pleura: Stable pleural spaces. Heart and Mediastinum: The cardiomediastinal silhouette is normal. The great vessels of the thorax ar e normal. Bones and Soft Tissues: The bones and soft tissues are within normal limits. IMPRESSION: Stable diffuse bilateral opacities. Life-support devices as above. Electronically signed by: Everett Gomez MD (10/15/2020 9:44 AM) [id number]
[2020-10-15] MEDS: FUROSEMIDE 40 MG/4 ML VIAL. IVP SCH (10:22)
[2020-10-15] MEDS: POTASSIUM CHLORIDE 20MEQ 100 ML IV SCH ×2 (10:22→11:24)
--- NOTE | 2020-10-15 10:44 | PDOC ---
PULMONARY PROGRESS NOTES DATE: 10/15/20 TIME: 10:41 Subjective Patient did well yesterday on pressure support spontaneous trial Extubated Placed on BiPAP Early this morning went into A. fib with rapid ventricular response Currently on IV Cardizem Vitals Vital Signs Date Time Temp Pulse Resp B/P (MAP) Pulse Ox O2 Delivery O2 Flow Rate FiO2 10/15/20 10:12 135 10/15/20 10:00 28 130/78 (95) 94 BiPAP/CPAP 10/15/20 08:00 98.7 98.7 10/15/20 08:00 15.0 Comments Following some commands currently on bike General: Alert HEENT: Other Lungs: Crackles Cardiovascular: S1, S2 Abdomen: Soft, Non-tender Neuro Exam: Alert Extremities: Other Skin: Warm Labs Laboratory Tests Test 10/13/20 12:00 10/13/20 19:03 10/14/20 00:20 10/14/20 05:30 Glucose (Fingerstick) 218 mg/dL (70-99) 210 mg/dL (70-99) 196 mg/dL (70-99) White Blood Count 7.6 x10^3/uL (4.0-11.0) Red Blood Count 3.09 x10^6/uL (4.30-5.70) Hemoglobin 9.3 g/dL (13.0-17.5) Hematocrit 27.4 % (39.0-53.0) Mean Corpuscular Volume 89 fL (79-100) Mean Corpuscular Hemoglobin 30 pg (25-35) Mean Corpuscular Hemoglobin Concent 34 g/dL (31-37) Red Cell Distribution Width 14.7 % (11.5-14.5) Platelet Count 158 x10^3/uL (140-400) Neutrophils (%) (Auto) 78 % (31-73) Lymphocytes (%) (Auto) 9 % (24-48) Monocytes (%) (Auto) 7 % (0-9) Eosinophils (%) (Auto) 6 % (0-3) Basophils (%) (Auto) 0 % (0-3) Neutrophils # (Auto) 5.9 x10^3/uL (1.8-7.7) Lymphocytes # (Auto) 0.7 x10^3/uL (1.0-4.8) Monocytes # (Auto) 0.5 x10^3/uL (0.0-1.1) Eosinophils # (Auto) 0.4 x10^3/uL (0.0-0.7) Basophils # (Auto) 0.0 x10^3/uL (0.0-0.2) Sodium Level 140 mmol/L (136-145) Potassium Level 3.3 mmol/L (3.5-5.1) Chloride Level 103 mmol/L (98-107) Carbon Dioxide Level 32 mmol/L (21-32) Anion Gap 5 (6-14) Blood Urea Nitrogen 22 mg/dL (8-26) Creatinine 0.8 mg/dL (0.7-1.3) Estimated GFR (Cockcroft-Gault) 97.6 Glucose Level 140 mg/dL (70-99) Calcium Level 8.2 mg/dL (8.5-10.1) Magnesium Level 1.7 mg/dL (1.8-2.4) ES-Sqw-P-Type Natriuretic Peptide 2156 pg/mL (0-124) Test 10/14/20 06:17 10/14/20 09:30 10/14/20 12:23 10/14/20 12:30 Glucose (Fingerstick) 131 mg/dL (70-99) 192 mg/dL (70-99) O2 Saturation 97 % (92-99) 97 % (92-99) Arterial Blood pH 7.47 (7.35-7.45) 7.50 (7.35-7.45) Arterial Blood pCO2 at Patient Temp 39 mmHg (35-46) 39 mmHg (35-46) Arterial Blood pO2 at Patient Temp 98 mmHg (65-108) 91 mmHg (65-108) Arterial Blood HCO3 28 mmol/L (21-28) 30 mmol/L (21-28) Arterial Blood Base Excess 4 mmol/L (-3-3) 6 mmol/L (-3-3) FiO2 45% vent 45% ps 5 peep 5 Test 10/14/20 17:12 10/14/20 23:58 10/15/20 05:51 10/15/20 08:18 Glucose (Fingerstick) 131 mg/dL (70-99) 115 mg/dL (70-99) 105 mg/dL (70-99) Sodium Level 144 mmol/L (136-145) Potassium Level 3.5 mmol/L (3.5-5.1) Chloride Level 105 mmol/L (98-107) Carbon Dioxide Level 27 mmol/L (21-32) Anion Gap 12 (6-14) Blood Urea Nitrogen 12 mg/dL (8-26) Creatinine 0.6 mg/dL (0.7-1.3) Estimated GFR (Cockcroft-Gault) 136.1 Glucose Level 110 mg/dL (70-99) Calcium Level 8.6 mg/dL (8.5-10.1) Magnesium Level 1.8 mg/dL (1.8-2.4) Laboratory Tests Test 10/14/20 12:23 10/14/20 12:30 10/14/20 17:12 10/14/20 23:58 Glucose (Fingerstick) 192 mg/dL (70-99) 131 mg/dL (70-99) 115 mg/dL (70-99) O2 Saturation 97 % (92-99) Arterial Blood pH 7.50 (7.35-7.45) Arterial Blood pCO2 at Patient Temp 39 mmHg (35-46) Arterial Blood pO2 at Patient Temp 91 mmHg (65-108) Arterial Blood HCO3 30 mmol/L (21-28) Arterial Blood Base Excess 6 mmol/L (-3-3) FiO2 45% ps 5 peep 5 Test 10/15/20 05:51 10/15/20 08:18 Glucose (Fingerstick) 105 mg/dL (70-99) Sodium Level 144 mmol/L (136-145) Potassium Level 3.5 mmol/L (3.5-5.1) Chloride Level 105 mmol/L (98-107) Carbon Dioxide Level 27 mmol/L (21-32) Anion Gap 12 (6-14) Blood Urea Nitrogen 12 mg/dL (8-26) Creatinine 0.6 mg/dL (0.7-1.3) Estimated GFR (Cockcroft-Gault) 136.1 Glucose Level 110 mg/dL (70-99) Calcium Level 8.6 mg/dL (8.5-10.1) Magnesium Level 1.8 mg/dL (1.8-2.4) Medications Active Scripts Medications Dose Route/Sig Max Daily Dose Days Date Category Icosapent Ethyl 1 Gm Capsule 2 Cap PO BID 09/20/20 Reported Metformin Hcl 1,000 Mg Tablet 1 Tab PO BID 09/20/20 Reported Rybelsus (Semaglutide) 7 Mg Tablet 1 Tab PO DAILY 09/20/20 Reported Farxiga (Dapagliflozin Propanediol) 10 Mg Tablet 1 Tab PO DAILY 09/20/20 Reported Trelegy Ellipta 100-62.5-25 (Fluticasone/Umeclidin/Vilanter) 1 Each Blst.w.dev 1 Puff INH DAILY 09/20/20 Reported Benzonatate 200 Mg Capsule 1 Cap PO TID PRN 09/20/20 Reported Montelukast Sodium 10 Mg Tablet 1 Tab PO DAILY 09/20/20 Reported Loratadine 10 Mg Tablet 1 Tab PO DAILY 09/20/20 Reported Fluticasone Propionate Nasal [place] (Fluticasone Propionate) 16 Gm [place].susp 1 Sprays NS BID 09/20/20 Reported Simvastatin 20 Mg Tablet 1 Tab PO QHS 11/20/15 Reported Impression . 1. Acute hypoxic respiratory failure secondary to COVID-19 viral pneumonia/acute lung injury.---intubated 09/23/20. Status post extubation 10/14 2. Abnormal chest x-ray consistent with mild infiltrates favoring COVID-19 viral pneumonia. 3. Leukopenia and thrombocytopenia due to COVID-19 viral pneumonia.--improved 4. No significant tobacco history. 5. Encephalopathy, multifactorial, prior to intubation 6. Delirium 7. Critical care myopathy 8. New onset A. fib with rapid ventricular response 10/15 Chest x-ray reviewed bilateral pulmonary infiltrates compatible with CHF Plan . Updated 10/15 Patient in A. fib currently on IV Cardizem Extubated 10/14, currently on BiPAP holding his own Face mask not sealing very well, will proceed with shaving his whiskers IV Lasix Chest x-ray reviewed slightly worse Discussed case with at the bedside Total cumulative critical care time of 30 minutes with no overlap Labs reviewed, magnesium 1.8 Updated 10/14 See yesterday's note Continue pressure support Discussed with RT and RN updated 10/13 Discussed with RN, will schedule Haldol Obtain baseline EKG Taper off sedation Discussed with , will consult surgery for tracheotomy next week Chest x-ray reviewed no significant change Monitor labs DVT GI prophylaxis Nutritional support Status post remdesivir and steroids CANDI MCCARTHY MD Oct 15, 2020 10:44
[2020-10-15] MEDS ORDERED: DIGOXIN IV 500 MCG/2 ML AMPUL. IV ONE (11:15)
--- NOTE | 2020-10-15 12:19 | EKG ---
[facility] [address] [place] [address] Test Date: 2020-10-15 Test Time: 08:27:07 Pat Name: SHANI PATTERSON Department: Room: 103 1 Gender: M Clean Room As[employer]er: : 1955 Requested By: ALCIDES DAVIS Order Number: [id number] Reading MD: Yoav Staples MD Measurements Intervals [place] Rate: 175 P: MD: QRS: 72 QRSD: 84 T: 186 QT: 298 QTc: 514 Interpretive Statements SUPRAVENTRICULAR TACHYCARDIA - PROBABLE ATRIAL FIBRILLATION ANTEROLATERAL ISCHEMIA Electronically Signed On 10-18-2020 9:34:38 CDT by Yoav Staples MD
--- NOTE | 2020-10-15 12:25 | PDOC2 ---
CONSULT Date of Consult Date of Consult DATE: 10/15/20 TIME: 12:25 Reason for Consult Reason for Consult: Atrial fibrillation with RVR Referring Physician Referring Physician: Dr. Saenz Identification/Chief Complaint Chief Complaint Shortness of breath Source Source: Chart review History of Present Illness Reason for Visit: 65-year-old male with history of coronary artery disease s/p coronary artery bypass surgery presented on 09/20/20 with shortness of breath, vomiting and diarrhea and was diagnosed with acute hypoxic respiratory failure secondary to Covid pneumonia. He was intubated on 09/23/20, treated with remdesivir and steroids and was successfully extubated earlier today and placed on BiPAP. This morning he went into atrial fibrillation with RVR prompting cardiology consultation. Patient was worked up for palpitations in the past but he does not have any previous diagnosis of atrial fibrillation. He was started on Car dizem drip with better control of heart rate. Past Medical History Cardiovascular: HTN, [place], Hyperlipidemia Pulmonary: Pneumonia CENTRAL NERVOUS SYSTEM: Other GI: GERD Heme/Onc: No pertinent hx Hepatobiliary: No pertinent hx Psych: No pertinent hx Musculoskeletal: Osteoarthritis Rheumatologic: Gout Infectious disease: No pertinent hx Renal/: No pertinent hx Endocrine: Diabetes Past Surgical History Past Surgical History: Cholecystectomy, CABG, Tonsillectomy, Other Family History Family History: Coronary Artery Disease Social History ALCOHOL: occassional Drugs: None Lives: with Family Current Problem List Problem List Problems Medical Problems: (1) Bilateral pulmonary infiltrates on CXR Status: Acute (2) Fever Status: Acute (3) Hypoxia Status: Acute (4) Lab test positive for detection of COVID-19 virus Status: Acute Current Medications Current Medications Current Medications Sodium Chloride 1,000 ml @ 1,000 mls/hr 1X ONCE IV Last administered on 09/20/20at 14:45; Start 09/20/20 at 14:30; Stop 09/20/20 at 15:29; Status DC Dexamethasone Sodium Phosphate (Decadron) 10 mg 1X ONCE IV Last administered on 09/20/20at 14:50; Start 09/20/20 at 14:30; Stop 09/20/20 at 14:31; Status DC Piperacillin Sod/ Tazobactam Sod 3.375 gm/Sodium Chloride 50 ml @ 100 mls/hr 1X ONCE IV Last administered on 09/20/20at 15:22; Start 09/20/20 at 15:30; Stop 09/20/20 at 15:59; Status DC Acetaminophen (Tylenol) 1,000 mg 1X ONCE PO Last administered on 09/20/20at 15:22; Start 09/20/20 at 15:30; Stop 09/20/20 at 15:31; Status DC Ondansetron HCl (Zofran) 4 mg PRN Q8HRS PRN IVP NAUSEA/VOMITING; Start 09/20/20 at 15:45; Stop 09/20/20 at 17:11; Status DC Morphine Sulfate (Morphine Sulfate) 2 mg PRN Q2HR PRN IVP PAIN; Start 09/20/20 at 15:45; Stop 09/21/20 at 15:44; Status DC Acetaminophen (Tylenol) 650 mg PRN Q4HRS PRN PO FEVER > 100.3'F; Start 09/20/20 at 15:45; Stop 09/21/20 at 15:44; Status Cancel Insulin Human Lispro (HumaLOG) 0-5 UNITS TIDWMEALS SQ Last administered on 09/21/20at 12:34; Start 09/20/20 at 17:00; Stop 09/21/20 at 13:33; Status DC Dextrose (Dextrose 50%-Water Syringe) 12.5 gm PRN Q15MIN PRN IV SEE COMMENTS; Start 09/20/20 at 15:45 Ondansetron HCl (Zofran) 4 mg PRN Q6HRS PRN IVP NAUSEA/VOMITING; Start 09/20/20 at 17:00; Stop 10/13/20 at 07:54; Status DC Calcium Carbonate/ Glycine (Tums) 500 mg PRN Q3HRS PRN PO UPSET STOMACH Last administered on 09/23/20at 11:47; Start 09/20/20 at 17:00 Zolpidem Tartrate (Ambien) 5 mg PRN QHS PRN PO INSOMNIA, MAY REPEAT IN 1HR; Start 09/20/20 at 17:00; Stop 10/13/20 at 07:54; Status DC Info (Non-Icu Electrolyte Protocol) 1 ea PRN DAILY PRN MC SEE COMMENTS; Start 09/20/20 at 17:00; Status Cancel Oxycodone/ Acetaminophen (Percocet 5/325) 1 tab PRN Q4HRS PRN PO MILD PAIN, 1ST CHOICE; Start 09/20/20 at 17:00 Oxycodone/ Acetaminophen (Percocet 5/325) 2 tab PRN Q4HRS PRN PO MODERATE PAIN, SEVERE PAIN; Start 09/20/20 at 17:00 Acetaminophen (Tylenol) 650 mg PRN Q6HRS PRN PO Headaches, Temp > 101.5F Last administered on 10/14/20at 09:03; Start 09/20/20 at 17:00 Senna/Docusate Sodium (Senna Plus) 1 tab BID PO Last administered on 10/11/20at 09:51; Start 09/20/20 at 21:00 Enoxaparin Sodium (Lovenox 40mg Syringe) 40 mg Q12HR SQ Last administered on 10/15/20at 07:46; Start 09/20/20 at 17:00 Potassium Chloride (Klor-Con) 40 meq 1X ONCE PO Last administered on 09/20/20at 17:34; Start 09/20/20 at 17:00; Stop 09/20/20 at 17:06; Status DC Piperacillin Sod/ Tazobactam Sod (Zosyn Per Pharmacy) 1 each PRN DAILY PRN MC SEE COMMENTS; Start 09/20/20 at 17:00; Stop 10/01/20 at 08:49; Status DC Azithromycin (Zithromax) 500 mg 1X ONCE PO Last administered on 09/20/20at 17:34; Start 09/20/20 at 17:00; Stop 09/20/20 at 17:07; Status DC Dexamethasone Sodium Phosphate (Decadron) 6 mg DAILY IVP Last administered on 09/28/20at 08:02; Start 09/21/20 at 09:00; Stop 09/29/20 at 07:20; Status DC Guaifenesin/ Codeine Phosphate (Robitussin Ac) 5 ml PRN Q6HRS PRN PO COUGH Last administered on 09/23/20at 11:49; Start 09/20/20 at 17:00 Multivitamins (Thera M Plus) 1 tab DAILY PO Last administered on 09/28/20at 08:02; Start 09/21/20 at 09:00; Stop 09/29/20 at 07:56; Status DC Aspirin (Aspirin Chewable) 81 mg DAILYWBKFT PO Last administered on 10/14/20 09:02; Start 09/21/20 at 08:00 Metoprolol Succinate (Toprol Xl) 12.5 mg HS PO Last administered on 09/22/20at 20:28; Start 09/20/20 at 21:00; Stop 09/25/20 at 14:13; Status DC Pantoprazole Sodium (Protonix) 40 mg DAILYAC PO Last administered on 09/23/20 09:28; Start 09/21/20 at 07:30; Stop 09/24/20 at 09:14; Status DC Simvastatin (Zocor) 20 mg QHS PO Last administered on 10/13/20at 20:07; Start 09/20/20 at 21:00 Piperacillin Sod/ Tazobactam Sod 3.375 gm/Sodium Chloride 50 ml @ 100 mls/hr Q6HRS IV Last administered on 10/01/20at 06:00; Start 09/20/20 at 18:00; Stop 10/01/20 at 07:01; Status DC Remdesivir 200 mg/ Sodium Chloride 210 ml @ 210 mls/hr 1X ONCE IV Last administered on 09/20/20at 21:12; Start 09/20/20 at 20:00; Stop 09/20/20 at 20:59; Status DC Remdesivir 100 mg/ Sodium Chloride 230 ml @ 460 mls/hr Q24H IV Last administered on 09/24/20at 19:28; Start 09/21/20 at 20:00; Stop 09/24/20 at 20:29; Status DC Insulin Glargine (Lantus Syringe) 20 unit BID SQ Last administered on 10/01/20at 08:34; Start 09/21/20 at 21:00; Stop 10/01/20 at 12:36; Status DC Insulin Human Lispro (HumaLOG) 0-9 UNITS TIDWMEALS SQ Last administered on 09/23/20at 17:28; Start 09/21/20 at 17:00; Stop 09/23/20 at 23:06; Status DC Lactobacillus Rhamnosus (Culturelle) 1 cap BID PO Last administered on 09/23/20at 09:28; Start 09/21/20 at 21:00; Stop 09/24/20 at 09:21; Status DC Ascorbic Acid (Vitamin C) 1,000 mg TID PO Last administered on 10/14/20 08:57; Start 09/21/20 at 21:00 Zinc Sulfate (Orazinc) 220 mg DAILY PO Last administered on 10/14/20 08:56; Start 09/22/20 at 09:00 Insulin Human Lispro (HumaLOG) 5 units TIDWMEALS SQ Last administered on 09/23/20at 17:29; Start 09/22/20 at 12:00; Stop 09/24/20 at 09:18; Status DC Albuterol/ Ipratropium (Combivent Respimat 20-100 Mcg) 1 puff PRN QID PRN INH SHORTNESS OF BREATH Last administered on 09/23/20 09:28; Start 09/22/20 at 12:45 Sterile Water (WATER for RESP) 1,000 ml CONT PRN INH VIA VAPOTHERM DEVICE Last administered on 09/23/20at 14:55; Start 09/23/20 at 12:45; Stop 09/24/20 at 09:20; Status DC Dexmedetomidine HCl 400 mcg/ Sodium Chloride 100 ml @ 0 mls/hr CONT PRN IV PER PROTOCOL Last administered on 10/15/20at 11:21; Start 09/23/20 at 18:00 Sodium Chloride 500 ml @ 500 mls/hr 1X PRN PRN IV SEE COMMENTS; Start 09/23/20 at 18:00 Atropine Sulfate (ATROPINE 0.5mg SYRINGE) 0.5 mg PRN Q5MIN PRN IV SEE COMMENTS; Start 09/23/20 at 18:00 Lorazepam (Ativan Inj) 0.25 mg 1X ONCE IVP Last administered on 09/23/20at 20:23; Start 09/23/20 at 20:15; Stop 09/23/20 at 20:16; Status DC Fentanyl Citrate 30 ml @ 0 mls/hr CONT PRN IV SEE PROTOCOL Last administered on 09/29/20at 14:27; Start 09/23/20 at 21:15; Stop 09/29/20 at 22:00; Status DC Propofol 100 ml @ 0 mls/hr CONT PRN IV PER PROTOCOL Last administered on 10/14/20at 03:25; Start 09/23/20 at 21:15 Midazolam HCl 100 ml @ 0 mls/hr CONT PRN IV SEE PROTOCOL Last administered on 10/08/20at 20:48; Start 09/23/20 at 21:15 Succinylcholine Chloride (Anectine) 200 mg STK-MED ONCE .ROUTE ; Start 09/23/20 at 21:40; Stop 09/23/20 at 21:40; Status DC Insulin Human Lispro (HumaLOG) 0-9 UNITS Q6HRS SQ Last administered on 10/14/20at 12:31; Start 09/24/20 at 00:00 Succinylcholine Chloride (Anectine) 200 mg 1X ONCE IV Last administered on 09/23/20at 21:44; Start 09/24/20 at 03:00; Stop 09/24/20 at 03:01; Status DC Pantoprazole Sodium (PROTONIX VIAL for IV PUSH) 40 mg DAILY IVP Last administered on 10/15/20at 07:44; Start 09/25/20 at 09:00 Benzocaine (Americaine) 57 spray STK-MED ONCE TP ; Start 09/24/20 at 15:00; Stop 09/25/20 at 10:40; Status DC Potassium Chloride/Water 100 ml @ 100 mls/hr Q1H IV ; Start 09/25/20 at 10:45; Stop 09/25/20 at 12:44; Status UNV Potassium Chloride/Water 100 ml @ 100 mls/hr Q1H IV Last administered on 09/25/20at 14:44; Start 09/25/20 at 11:00; Stop 09/25/20 at 15:01; Status DC Sodium Chloride 1,000 ml @ 50 mls/hr Q20H IV Last administered on 10/09/20at 05:17; Start 09/28/20 at 15:00; Stop 10/10/20 at 09:01; Status DC Dexamethasone Sodium Phosphate (Decadron) 20 mg DAILY IVP Last administered on 09/30/20at 07:48; Start 09/29/20 at 09:00; Stop 10/01/20 at 07:01; Status DC Multivitamins/ Minerals Therapeutic (Centrum Multivit-Mineral Liq) 5 ml DAILY PEG Last administered on 10/14/20at 08:58; Start 09/29/20 at 09:00 Fentanyl Citrate 55 ml @ 1.5 mls/hr CONT PRN IV SEE I/O Last administered on 10/08/20at 10:28; Start 09/29/20 at 21:15; Stop 10/09/20 at 16:29; Status DC Furosemide (Lasix) 20 mg 1X ONCE IVP Last administered on 09/30/20at 11:52; Start 09/30/20 at 11:00; Stop 09/30/20 at 11:01; Status DC Dexamethasone Sodium Phosphate (Decadron) 10 mg DAILY IVP Last administered on 10/03/20at 07:32; Start 10/01/20 at 09:00; Stop 10/03/20 at 11:01; Status DC Insulin Glargine (Lantus Syringe) 25 unit BID SQ Last administered on 10/14/20 08:58; Start 10/01/20 at 21:00 Nystatin (Nystop) 1 richard BID TP Last administered on 10/15/20at 07:46; Start 10/07/20 at 09:00 Magnesium Sulfate/ Dextrose 100 ml @ 100 mls/hr 1X ONCE IV Last administered on 10/08/20at 11:04; Start 10/08/20 at 11:00; Stop 10/08/20 at 11:59; Status DC Info (Icu Electrolyte Protocol) 1 ea CONT PRN PRN MC SEE COMMENTS; Start 10/08/20 at 10:30 Magnesium Sulfate 50 ml @ 25 mls/hr 1X ONCE IV Last administered on 10/09/20at 08:36; Start 10/09/20 at 07:45; Stop 10/09/20 at 09:44; Status DC Fentanyl Citrate 30 ml @ 1.5 mls/hr CONT PRN PRN IV SEE PROTOCOL Last ad ministered on 10/14/20at 09:20; Start 10/09/20 at 16:30 Hydralazine HCl (Apresoline Inj) 10 mg PRN Q4HRS PRN IVP ELEVATED BP, SEE COMMENTS Last administered on 10/15/20at 07:45; Start 10/12/20 at 11:15 Vecuronium [place] (Norcuron Bolus) 6 mg PRN Q6HRS PRN IV VENTILATOR COMPLIANCE Last administered on 10/12/20at 23:39; Start 10/12/20 at 23:45 Haloperidol Lactate (Haldol Inj) 5 mg Q8HRS IVP ; Start 10/13/20 at 08:30; Stop 10/13/20 at 09:42; Status DC Potassium Bicarbonate (Potassium Effervescent Tablet) 40 meq 1X ONCE PO Last administered on 10/13/20at 08:41; Start 10/13/20 at 08:00; Stop 10/13/20 at 08:09; Status DC Enalaprilat (Vasotec Inj) 1.25 mg PRN Q6HRS PRN IVP HYPERTENSION- 2nd choice Last administered on 10/15/20at 00:07; Start 10/13/20 at 08:30 Haloperidol Lactate (Haldol Inj) 2.5 mg PRN Q8HRS PRN IVP Agitation during vent wean Last administered on 10/14/20at 17:05; Start 10/13/20 at 09:45 Piperacillin Sod/ Tazobactam Sod 3.375 gm/Sodium Chloride 50 ml @ 100 mls/hr Q6HRS IV Last administered on 10/15/20at 05:54; Start 10/13/20 at 11:00 Piperacillin Sod/ Tazobactam Sod (Zosyn Per Pharmacy) 1 each PRN DAILY PRN MC SEE COMMENTS; Start 10/13/20 at 09:45 Furosemide (Lasix) 40 mg 1X ONCE IVP Last administered on 10/13/20at 15:55; Start 10/13/20 at 14:45; Stop 10/13/20 at 14:46; Status DC Potassium Chloride/Water 100 ml @ 100 mls/hr 1X ONCE IV Last administered on 10/13/20at 15:55; Start 10/13/20 at 15:00; Stop 10/13/20 at 15:59; Status DC Magnesium Sulfate 50 ml @ 25 mls/hr 1X ONCE IV Last administered on 10/14/20at 08:59; Start 10/14/20 at 07:30; Stop 10/14/20 at 09:29; Status DC Potassium Bicarbonate (Potassium Effervescent Tablet) 40 meq 1X ONCE PO Last administered on 10/14/20at 08:57; Start 10/14/20 at 07:30; Stop 10/14/20 at 07:31; Status DC Metoprolol Tartrate (Lopressor Vial) 5 mg PRN Q5MIN PRN IVP TACHYCARDIA Last administered on 10/15/20at 09:17; Start 10/15/20 at 08:45 Fentanyl Citrate (Fentanyl 2ml Vial) 50 mcg PRN Q2HR PRN IVP PAIN Last administered on 10/15/20at 08:44; Start 10/15/20 at 08:45 Diltiazem HCl 125 mg/Sodium Chloride 125 ml @ 5 mls/hr CONT PRN IV SEE I/O RECORD Last administered on 10/15/20at 09:29; Start 10/15/20 at 09:30 Furosemide (Lasix) 40 mg DAILY IVP Last administered on 10/15/20at 10:22; Start 10/15/20 at 11:00; Stop 10/17/20 at 09:01 Potassium Chloride/Water 100 ml @ 100 mls/hr Q1H IV Last administered on 10/15/20at 11:24; Start 10/15/20 at 11:00; Stop 10/15/20 at 12:59 Digoxin (Lanoxin) 500 mcg 1X ONCE IV Last administered on 10/15/20at 11:11; Start 10/15/20 at 11:15; Stop 10/15/20 at 11:16; Status DC Active Scripts Active Reported Icosapent Ethyl 1 Gm Capsule 2 Cap PO BID Metformin Hcl 1,000 Mg Tablet 1 Tab PO BID Rybelsus (Semaglutide) 7 Mg Tablet 1 Tab PO DAILY Farxiga (Dapagliflozin Propanediol) 10 Mg Tablet 1 Tab PO DAILY Trelegy Ellipta 100-62.5-25 (Fluticasone/Umeclidin/Vilanter) 1 Each Blst.w.dev 1 Puff INH DAILY Benzonatate 200 Mg Capsule 1 Cap PO TID PRN Montelukast Sodium 10 Mg Tablet 1 Tab PO DAILY Loratadine 10 Mg Tablet 1 Tab PO DAILY Fluticasone Propionate Nasal [place] (Fluticasone Propionate) 16 Gm [place].susp 1 Sprays NS BID Simvastatin 20 Mg Tablet 1 Tab PO QHS Allergies Allergies: Coded Allergies: No Known Drug Allergies (Unverified , 11/20/15) ROS Review of System Full review of systems cannot be obtained since patient is on BiPAP Physical Exam General: mild distress HEENT: Atraumatic, Other (On BiPAP) Lungs: Other (Scattered crepitations bilaterally) Heart: Other (Heart rate tachycardic and irregular) Abdomen: Soft Extremities: No cyanosis Vitals VITALS Vital Signs Date Time Temp Pulse Resp B/P (MAP) Pulse Ox O2 Delivery O2 Flow Rate FiO2 10/15/20 12:00 98.8 108 28 110/63 (79) 94 BiPAP/CPAP 98.8 10/15/20 08:00 15.0 Labs Labs Laboratory Tests Test 10/13/20 19:03 10/14/20 00:20 10/14/20 05:30 10/14/20 06:17 Glucose (Fingerstick) 210 mg/dL (70-99) 196 mg/dL (70-99) 131 mg/dL (70-99) White Blood Count 7.6 x10^3/uL (4.0-11.0) Red Blood Count 3.09 x10^6/uL (4.30-5.70) Hemoglobin 9.3 g/dL (13.0-17.5) Hematocrit 27.4 % (39.0-53.0) Mean Corpuscular Volume 89 fL (79-100) Mean Corpuscular Hemoglobin 30 pg (25-35) Mean Corpuscular Hemoglobin Concent 34 g/dL (31-37) Red Cell Distribution Width 14.7 % (11.5-14.5) Platelet Count 158 x10^3/uL (140-400) Neutrophils (%) (Auto) 78 % (31-73) Lymphocytes (%) (Auto) 9 % (24-48) Monocytes (%) (Auto) 7 % (0-9) Eosinophils (%) (Auto) 6 % (0-3) Basophils (%) (Auto) 0 % (0-3) Neutrophils # (Auto) 5.9 x10^3/uL (1.8-7.7) Lymphocytes # (Auto) 0.7 x10^3/uL (1.0-4.8) Monocytes # (Auto) 0.5 x10^3/uL (0.0-1.1) Eosinophils # (Auto) 0.4 x10^3/uL (0.0-0.7) Basophils # (Auto) 0.0 x10^3/uL (0.0-0.2) Sodium Level 140 mmol/L (136-145) Potassium Level 3.3 mmol/L (3.5-5.1) Chloride Level 103 mmol/L (98-107) Carbon Dioxide Level 32 mmol/L (21-32) Anion Gap 5 (6-14) Blood Urea Nitrogen 22 mg/dL (8-26) Creatinine 0.8 mg/dL (0.7-1.3) Estimated GFR (Cockcroft-Gault) 97.6 Glucose Level 140 mg/dL (70-99) Calcium Level 8.2 mg/dL (8.5-10.1) Magnesium Level 1.7 mg/dL (1.8-2.4) OO-Vcm-Z-Type Natriuretic Peptide 2156 pg/mL (0-124) Test 10/14/20 09:30 10/14/20 12:23 10/14/20 12:30 10/14/20 17:12 O2 Saturation 97 % (92-99) 97 % (92-99) Arterial Blood pH 7.47 (7.35-7.45) 7.50 (7.35-7.45) Arterial Blood pCO2 at Patient Temp 39 mmHg (35-46) 39 mmHg (35-46) Arterial Blood pO2 at Patient Temp 98 mmHg (65-108) 91 mmHg (65-108) Arterial Blood HCO3 28 mmol/L (21-28) 30 mmol/L (21-28) Arterial Blood Base Excess 4 mmol/L (-3-3) 6 mmol/L (-3-3) FiO2 45% vent 45% ps 5 peep 5 Glucose (Fingerstick) 192 mg/dL (70-99) 131 mg/dL (70-99) Test 10/14/20 23:58 10/15/20 05:51 10/15/20 08:18 10/15/20 11:46 Glucose (Fingerstick) 115 mg/dL (70-99) 105 mg/dL (70-99) 121 mg/dL (70-99) Sodium Level 144 mmol/L (136-145) Potassium Level 3.5 mmol/L (3.5-5.1) Chloride Level 105 mmol/L (98-107) Carbon Dioxide Level 27 mmol/L (21-32) Anion Gap 12 (6-14) Blood Urea Nitrogen 12 mg/dL (8-26) Creatinine 0.6 mg/dL (0.7-1.3) Estimated GFR (Cockcroft-Gault) 136.1 Glucose Level 110 mg/dL (70-99) Calcium Level 8.6 mg/dL (8.5-10.1) Magnesium Level 1.8 mg/dL (1.8-2.4) Laboratory Tests Test 10/14/20 12:30 10/14/20 17:12 10/14/20 23:58 10/15/20 05:51 O2 Saturation 97 % (92-99) Arterial Blood pH 7.50 (7.35-7.45) Arterial Blood pCO2 at Patient Temp 39 mmHg (35-46) Arterial Blood pO2 at Patient Temp 91 mmHg (65-108) Arterial Blood HCO3 30 mmol/L (21-28) Arterial Blood Base Excess 6 mmol/L (-3-3) FiO2 45% ps 5 peep 5 Glucose (Fingerstick) 131 mg/dL (70-99) 115 mg/dL (70-99) 105 mg/dL (70-99) Test 10/15/20 08:18 10/15/20 11:46 Sodium Level 144 mmol/L (136-145) Potassium Level 3.5 mmol/L (3.5-5.1) Chloride Level 105 mmol/L (98-107) Carbon Dioxide Level 27 mmol/L (21-32) Anion Gap 12 (6-14) Blood Urea Nitrogen 12 mg/dL (8-26) Creatinine 0.6 mg/dL (0.7-1.3) Estimated GFR (Cockcroft-Gault) 136.1 Glucose Level 110 mg/dL (70-99) Calcium Level 8.6 mg/dL (8.5-10.1) Magnesium Level 1.8 mg/dL (1.8-2.4) Glucose (Fingerstick) 121 mg/dL (70-99) Assessment/Plan Assessment/Plan 1. Acute hypoxic respiratory failure secondary to Covid pneumonia: s/p extubation earlier today and presently on BiPAP. Continue management per pulmonary team. 2. Atrial fibrillation with RVR, newly diagnosed. Patient metoprolol was held on admission due to bradycardia. Heart rate better controlled with Cardizem drip but still slightly elevated. We will administer 1 dose of intravenous digoxin. Start heparin infusion per protocol. We will consider cardioversion if heart rate is difficult to control. His LVEF in 2014 was noted to be 40 to 45%. We will check 2D echo to assess left ventricle systolic function. 3. Coronary artery disease s/p single-vessel coronary artery bypass surgery with GUZMAN to LAD. Cardiac catheterization in 2016 showed patent graft. He seems to be clinically stable. Continue current secondary prevention measures. 4. Hypertension: Controlled 5. Hyperlipidemia: Statins 6. Diabetes mellitus type 2: Treat per IM Thank you for your consultation NIKHIL CALDERA MD Oct 15, 2020 12:25
--- NOTE | 2020-10-15 14:05 | PDOC ---
[facility] PROGRESS NOTE Date of Service DOS: DATE: 10/15/20 TIME: 13:56 Chief Complaint Chief Complaint A/P: Acute COVID-19 pneumonia - s/p steroids, remdesivir Acute hypoxic respiratory failure - 2/2 COVID and ARDS Sepsis - due to above Bradycardia - unable to tolerate BB Diabetes mellitus type 2 HTN HLD CAD - 01/2012 with LESLEY to LAD (in-stent thrombosis) prompting CABG in the with GUZMAN to LAD. Acute on chronic combined systolic and diastolic CHF - lasix prn. Will echo and BNP h/o Cardiomyopathy - historically EF of 40-45%. FEN - NGT feeds PPX - Lovenox for DVT prophylaxis, Protonix GI prophylaxis Full code Dispo - ICU Discussed with RN and SW Disposition patient management as above Surrogate decision maker is the Jenni Morrissey History of Present Illness History of Present Illness Mr Morrissey is a 65-year-old white male w/ PMHx HTN, DM2, HLD, GERD, CAD s/p CABG 2011 presented to ED due to worsening cough and shortness of breath; patient also experiencing vomiting and diarrhea. Patient was recently diagnosed with COVID-19 on September 11 and has been doing well since that until a few days prior to arrival when his symptoms acutely worsened this morning. Has not received Covid vaccine. Close contacts at home have very similar symptoms. 09/21: Patient saturating 98% on 10 L nasal cannula. Increasing O2 requirements may consider pulmonology consult. On remdesivir, steroids 09/22: Patient saturating 91% on 10 L nasal cannula. Shortness of breath with ambulation. Combivent inhaler ordered today. 09/23: Patient is requiring increasing O2 requirements. Saturating 88% on 15 L nonrebreather and also nasal cannula. ICU transfer and intubated. 09/24: In ICU on vent. Afebrile, currently breathing FiO2 100%, PEEP 10. Final dose of remdesivir today. 09/25: Afebrile. On vent with FiO2 80%, PEEP 9. He has completed course of remdesivir. IV steroids for total dose 10 days and IV Zosyn. 09/26: Afebrile. Remains on vent with FiO2 70%, PEEP 8. Completed remdesivir. Continue prophylactic IV Zosyn. 09/27: No acute events overnight. Afebrile. On vent with FiO2 70%, PEEP 8. Cont IV antibiotics and steroids, with taper. Completed remdesivir. 09/28: Afebrile. On vent with FiO2 90%, PEEP 8. Completed remdesivir. Continue IV antibiotics. KUB with good OGT placement 09/29: Afebrile. On vent with increased oxygen requirement, FiO2 100%, PEEP 8. CXR increasing bilateral airspace opacities 09/30: On vent with FiO2 90%, PEEP 8. Afebrile. Steroids have been increased to dexamethasone 20 mg for 5 days, 10 mg for 5 days 10/01: No acute events overnight. Patient saturating 97% on vent settings of 22/500/80/8. Currently sedated and intubated. 10/02: Patient saturating 95% on vent settings of 22/500/75/7. ABG expected at 7.4 /72/28. Currently intubated and sedated. 10/03: No acute events overnight. Patient saturating 94% on vent settings of 22/500/75/7. Improved sugar control. 10/04: Saturating 100% on vent settings of 22/500/65/7. Last ABG show pH of 7.5 /113/28. Adjustments to vent settings by pulmonology. 10/05: No acute events overnight. Patient saturating 96% on vent settings of 20/500/65/7. Discussed prognosis with family. 10/06: No acute events overnight. Patient saturating 95% on vent settings of 20/500/50/6. No other concerns from nursing at this time. 10/07: No acute events overnight. Patient saturating 96% on vent settings of 20/500/50/6. T-max of 100.3. 10/08: Afebrile overnight. Sedated with propofol Versed and fentanyl PEEP of 6 FiO2 50% ABG 7.4 . Discussed with bedside. 10/09: T-max 100.3 F. Sedated with propofol Versed fentanyl, O2 saturations 96%, ABG 7.4 on FiO2 50% and normal PEEP of 6. D/w bedside. Good UOP 10/10: Afebrile. Sedation wean this morning respirations increased significantly back on sedation. ABG 7.40 FiO2 45% PEEP 6. Discussed with beds douglas O2 is significantly improving. 10/11: Afebrile. Agitated with sedation wean added Precedex. FiO2 40% PEEP 5. Will attempt sedation wean again today. D/w bedside. 10/12: Chest radiograph improved . ABG 7.4 8/35/95 on 40% FiO2 PEEP 5. Respiratory rate 28 with wean this morning and blood pressure elevated. Will try to wean again later today. Discussed with at bedside 10/13: Febrile 101.1 F overnight. Very agitated with attempted wean with increased BP ABG 7.471/38.4/71.2 on FiO2 40% PEEP 5. Respiratory blood and urine cultures for fever. Zosyn for coverage for possible VAP, f/u CXR 10/14: Afebrile. O2 saturations improved with furosemide. Urine output 2.7 L. K3.3 mag 1.7 WBC 7.6, Hb 9.3, platelets 158. Starting vent wean. Cultures pending, still on zosyn 10/13 Discussed with Pulmonology adding low-dose Haldol with vent weans will hold on propofol as QT sees around 470. Will maintain telemetry. As needed hydralazine and Vasotec for elevated blood pressure. Discussed with bedside CC time 34 minutes 10/15/2020: Patient seen and examined in the ICU with family present. Currently on BiPAP 16/16, 50% FiO2, and rate 20. Sedated with dexmedetomidine. On diltiazem drip. Amado to BSD. Rectal bag present. Triple lumen PICC in the right arm and right heel ulcer present. Chest x-ray from today showed stable diffuse bilateral opacities.Discussed with RN. Chart reviewed. Vitals/I&O Vitals/I&O: Vital Signs Date Time Temp Pulse Resp B/P (MAP) Pulse Ox O2 Delivery O2 Flow Rate FiO2 10/15/20 13:37 93 BiPAP/CPAP 10/15/20 13:00 118 26 140/65 (90) 10/15/20 12:00 98.8 98.8 10/15/20 08:00 15.0 I & O 10/14/20 10/14/20 10/15/20 15:00 23:00 07:00 Intake Total 1237.61 ml 690 ml 395 ml Output Total 480 ml 1010 ml 445 ml Balance 757.61 ml -320 ml -50 ml Physical Exam General: Other (Intubated and sedated) Heart: Regular rate Lungs: Crackles Abdomen: Normal bowel sounds Extremities: No clubbing Skin: No rashes, No significant lesion Labs Labs: Laboratory Tests Test 10/14/20 17:12 10/14/20 23:58 10/15/20 05:51 10/15/20 08:18 Glucose (Fingerstick) 131 mg/dL (70-99) 115 mg/dL (70-99) 105 mg/dL (70-99) Sodium Level 144 mmol/L (136-145) Potassium Level 3.5 mmol/L (3.5-5.1) Chloride Level 105 mmol/L (98-107) Carbon Dioxide Level 27 mmol/L (21-32) Anion Gap 12 (6-14) Blood Urea Nitrogen 12 mg/dL (8-26) Creatinine 0.6 mg/dL (0.7-1.3) Estimated GFR (Cockcroft-Gault) 136.1 Glucose Level 110 mg/dL (70-99) Calcium Level 8.6 mg/dL (8.5-10.1) Magnesium Level 1.8 mg/dL (1.8-2.4) Test 10/15/20 11:46 Glucose (Fingerstick) 121 mg/dL (70-99) Review of Systems Review of Systems: Gastrointestinal: No nausea or vomiting. Eyes: No loss of vision or blurry. Assessment and Plan Assessmemt and Plan Problems Medical Problems: (1) Bilateral pulmonary infiltrates on CXR Status: Acute (2) Fever Status: Acute (3) Hypoxia Status: Acute (4) Lab test positive for detection of COVID-19 virus Status: Acute Acute COVID-19 pneumonia - s/p steroids, remdesivir Acute hypoxic respiratory failure - 2/2 COVID and ARDS Sepsis - due to above Bradycardia - unable to tolerate BB Diabetes mellitus type 2 HTN HLD CAD - 01/2012 with LESLEY to LAD (in-stent thrombosis) prompting CABG in the with GUZMAN to LAD. Acute on chronic combined systolic and diastolic CHF - lasix prn. Will echo and BNP h/o Cardiomyopathy - historically EF of 40-45%. Plan: 1) Continue ICU monitoring 2) Trying to wean off of BiPAP 3) Continue IV sedation with dexmedetomidine 4) Continue IV diltiazem 5) Appreciate subspecialty consult: - Pulmonology (10/15): Patient in A. fib currently on IV Cardizem. Extubated 10/14, currently on BiPAP holding his own. Face mask not sealing very well, will proceed with shaving his whiskers. IV Lasix. Chest x-ray reviewed slightly worse. 6) SCD for DVT prophylaxis 7) Full code 8) Home medications CC time 32 minutes Comment Review of Relevant I have reviewed the following items lukasz (where applicable) has been applied. Medications: Current Medications Medications (Trade) Dose Ordered Sig/Khadar Route PRN Reason Start Time Stop Time Status Last Admin Dose Admin Metoprolol Tartrate (Lopressor Vial) 5 mg PRN Q5MIN PRN IVP TACHYCARDIA 10/15/20 08:45 10/15/20 09:17 Fentanyl Citrate (Fentanyl 2ml Vial) 50 mcg PRN Q2HR PRN IVP PAIN 10/15/20 08:45 10/15/20 08:44 Diltiazem HCl 125 mg/Sodium Chloride 125 ml @ 5 mls/hr CONT PRN IV SEE I/O RECORD 10/15/20 09:30 10/15/20 09:29 Furosemide (Lasix) 40 mg DAILY IVP 10/15/20 11:00 10/17/20 09:01 10/15/20 10:22 Potassium Chloride/Water 100 ml @ 100 mls/hr Q1H IV 10/15/20 11:00 10/15/20 12:59 DC 10/15/20 11:24 Digoxin (Lanoxin) 500 mcg 1X ONCE IV 10/15/20 11:15 10/15/20 11:16 DC 10/15/20 11:11 Justifications for Admission Other Justification MARLEY JIMENEZ III DO Oct 15, 2020 14:05
[2020-10-15] MEDS: HEPARIN 25,000UTS/250ML PREMIX 250 ML IV PRN (14:15)
--- NOTE | 2020-10-15 18:11 | NUR ---
Patient converted back to sinus rhythm at 1749, cardizem gtt titrated down then off. Patient remains in sinus rhythm, blood pressure stable.
[2020-10-15] MEDS: SIMVASTATIN 20 MG TABLET PO SCH (19:26)
[2020-10-15] MEDS: HEPARIN for IV BOLUS 10,000 UNIT/10 ML VIAL. IV PRN (21:02)
[2020-10-16] VITALS (24 sets, daily range): BP systolic 85–198; BP diastolic 44–86
[2020-10-16] MEDS: PIPERACILLIN/TAZOBACTAM 3.375 GM in IV NORMAL SALINE 50ML 50 ML IV SCH ×4 (00:33→18:08)
[2020-10-16] MEDS: DEXMEDETOMIDINE 400 MCG in IV NORMAL SALINE 100ML 96 ML IV PRN ×8 (02:09→22:40)
[2020-10-16 03:57] LABS: BASO # 0.1 x10^3/uL (0.0-0.2); BASO % 1 % (0-3); EOS # 0.4 x10^3/uL (0.0-0.7); EOS % 7 % (0-3); HEMATOCRIT 32.2 % (39.0-53.0); HEMOGLOBIN 10.9 g/dL (13.0-17.5); LYMPH # 1.2 x10^3/uL (1.0-4.8); LYMPH % 20 % (24-48); MEAN CORPUSCULAR HEMOGLOBIN 30 pg (25-35); MEAN CORPUSCULAR HGB CONC 34 g/dL (31-37); MEAN CORPUSCULAR VOLUME 88 fL (79-100); MONO # 0.6 x10^3/uL (0.0-1.1); MONO % 11 % (0-9); NEUT # 3.6 x10^3/uL (1.8-7.7); NEUT % 61 % (31-73); PLATELET COUNT 230 x10^3/uL (140-400); RED BLOOD COUNT 3.67 x10^6/uL (4.30-5.70); RED CELL DISTRIBUTION WIDTH 14.7 % (11.5-14.5); WHITE BLOOD COUNT 5.9 x10^3/uL (4.0-11.0)
[2020-10-16] MEDS: hydrALAZINE 20 MG/ML VIAL. IVP PRN ×3 (04:05→14:17)
[2020-10-16 04:13] LABS: CALCIUM 8.4 mg/dL (8.5-10.1); CREATININE 0.8 mg/dL (0.7-1.3); GFR 97.6; MAGNESIUM 1.7 mg/dL (1.8-2.4); PHOSPHORUS 4.3 mg/dL (2.6-4.7); POTASSIUM 3.8 mmol/L (3.5-5.1)
[2020-10-16] MEDS: HEPARIN for IV BOLUS 10,000 UNIT/10 ML VIAL. IV PRN ×2 (04:22→11:41)
[2020-10-16] MEDS: INSULIN LISPRO 300 UNITS/3 ML VIAL. SQ SCH ×4 (05:54→17:53)
[2020-10-16] MEDS: fentaNYL PF VIAL 100 MCG/2 ML VIAL IVP PRN ×2 (05:57→14:16)
[2020-10-16] MEDS: ASPIRIN CHEWABLE 81 MG TABLET. PO SCH (07:18)
[2020-10-16] MEDS: ZINC SULFATE 220 MG CAPSULE. PO SCH (07:18)
[2020-10-16] MEDS: SENNOSIDES/DOCUSATE 8.6/50MG TABLET. PO SCH ×2 (07:18→21:00)
[2020-10-16] MEDS: MULTIVITAMINS,THERAPEUTIC 5 ML ORAL LIQUID. PEG SCH (07:18)
[2020-10-16] MEDS: INSULIN GLARGINE SYRINGE. SQ SCH ×2 (07:20→21:00)
[2020-10-16] MEDS: ASCORBIC ACID 1,000 MG TABLET PO SCH ×3 (07:20→21:00)
[2020-10-16] MEDS ORDERED: PERFLUTREN PROTEIN-A MICROSPHR 0.22 MG/ML 3 ML VIAL. IV ONE ×2 (07:30→07:43)
[2020-10-16 08:14] LABS: % ATYL 1 % (0-0); % BANDS 5 % (0-9); % BASOS 1 % (0-3); % EOS 5 % (0-5); % LYMPHS 37 % (24-48); % METAS 2 % (0-0); % MONOS 5 % (0-10); % MYELOS 1 % (0-0); % SEGS 43 % (35-66)
[2020-10-16 08:15] LABS: ANISOCYTOSIS SLIGHT; PLT ESTIMATE ADEQUATE (ADEQUATE); POLYCHROMASIA SLIGHT
[2020-10-16] MEDS: HEPARIN 25,000UTS/250ML PREMIX 250 ML IV PRN (08:17)
[2020-10-16] MEDS: PANTOPRAZOLE IV PUSH 40 MG VIAL. IVP SCH (08:17)
[2020-10-16] MEDS: FUROSEMIDE 40 MG/4 ML VIAL. IVP SCH (08:18)
[2020-10-16] MEDS: NYSTATIN TOPICAL POWDER 15GM BOTTLE. TP SCH ×2 (08:18→21:26)
--- NOTE | 2020-10-16 08:22 | PDOC ---
PULMONARY PROGRESS NOTES DATE: 10/16/20 TIME: 08:21 Subjective Patient more awake, currently on Venturi mask BiPAP as needed Extubated 10/14 No overnight events Vitals Vital Signs Date Time Temp Pulse Resp B/P (MAP) Pulse Ox O2 Delivery O2 Flow Rate FiO2 10/16/20 08:17 99 BiPAP/CPAP 10/16/20 07:00 66 28 176/71 (106) 10/16/20 03:00 98.4 98.4 10/15/20 08:00 15.0 General: Alert HEENT: Other Lungs: Crackles Cardiovascular: S1, S2 Abdomen: Soft, Non-tender Neuro Exam: Alert Extremities: Other Skin: Warm Labs Laboratory Tests Test 10/14/20 09:30 10/14/20 12:23 10/14/20 12:30 10/14/20 17:12 O2 Saturation 97 % (92-99) 97 % (92-99) Arterial Blood pH 7.47 (7.35-7.45) 7.50 (7.35-7.45) Arterial Blood pCO2 at Patient Temp 39 mmHg (35-46) 39 mmHg (35-46) Arterial Blood pO2 at Patient Temp 98 mmHg (65-108) 91 mmHg (65-108) Arterial Blood HCO3 28 mmol/L (21-28) 30 mmol/L (21-28) Arterial Blood Base Excess 4 mmol/L (-3-3) 6 mmol/L (-3-3) FiO2 45% vent 45% ps 5 peep 5 Glucose (Fingerstick) 192 mg/dL (70-99) 131 mg/dL (70-99) Test 10/14/20 23:58 10/15/20 05:51 10/15/20 08:18 10/15/20 11:46 Glucose (Fingerstick) 115 mg/dL (70-99) 105 mg/dL (70-99) 121 mg/dL (70-99) Sodium Level 144 mmol/L (136-145) Potassium Level 3.5 mmol/L (3.5-5.1) Chloride Level 105 mmol/L (98-107) Carbon Dioxide Level 27 mmol/L (21-32) Anion Gap 12 (6-14) Blood Urea Nitrogen 12 mg/dL (8-26) Creatinine 0.6 mg/dL (0.7-1.3) Estimated GFR (Cockcroft-Gault) 136.1 Glucose Level 110 mg/dL (70-99) Calcium Level 8.6 mg/dL (8.5-10.1) Magnesium Level 1.8 mg/dL (1.8-2.4) Test 10/15/20 20:25 10/15/20 20:30 10/16/20 03:40 Heparin Anti-Xa Act, Unfractionated < 0.10 IU/mL (0.30-0.70) < 0.10 IU/mL (0.30-0.70) Glucose (Fingerstick) 123 mg/dL (70-99) White Blood Count 5.9 x10^3/uL (4.0-11.0) Red Blood Count 3.67 x10^6/uL (4.30-5.70) Hemoglobin 10.9 g/dL (13.0-17.5) Hematocrit 32.2 % (39.0-53.0) Mean Corpuscular Volume 88 fL (79-100) Mean Corpuscular Hemoglobin 30 pg (25-35) Mean Corpuscular Hemoglobin Concent 34 g/dL (31-37) Red Cell Distribution Width 14.7 % (11.5-14.5) Platelet Count 230 x10^3/uL (140-400) Neutrophils (%) (Auto) 61 % (31-73) Lymphocytes (%) (Auto) 20 % (24-48) Monocytes (%) (Auto) 11 % (0-9) Eosinophils (%) (Auto) 7 % (0-3) Basophils (%) (Auto) 1 % (0-3) Neutrophils # (Auto) 3.6 x10^3/uL (1.8-7.7) Lymphocytes # (Auto) 1.2 x10^3/uL (1.0-4.8) Monocytes # (Auto) 0.6 x10^3/uL (0.0-1.1) Eosinophils # (Auto) 0.4 x10^3/uL (0.0-0.7) Basophils # (Auto) 0.1 x10^3/uL (0.0-0.2) Segmented Neutrophils % 43 % (35-66) Band Neutrophils % 5 % (0-9) Lymphocytes % 37 % (24-48) Atypical Lymphocytes % (Manual) 1 % (0-0) Monocytes % 5 % (0-10) Eosinophils % 5 % (0-5) Basophils % 1 % (0-3) Metamyelocytes % 2 % (0-0) Myelocytes % 1 % (0-0) Platelet Estimate Adequate (ADEQUATE) Large Platelets Occ Polychromasia Slight Anisocytosis Slight Sodium Level 144 mmol/L (136-145) Potassium Level 3.8 mmol/L (3.5-5.1) Chloride Level 106 mmol/L (98-107) Carbon Dioxide Level 31 mmol/L (21-32) Anion Gap 7 (6-14) Blood Urea Nitrogen 12 mg/dL (8-26) Creatinine 0.8 mg/dL (0.7-1.3) Estimated GFR (Cockcroft-Gault) 97.6 Glucose Level 129 mg/dL (70-99) Calcium Level 8.4 mg/dL (8.5-10.1) Phosphorus Level 4.3 mg/dL (2.6-4.7) Magnesium Level 1.7 mg/dL (1.8-2.4) Laboratory Tests Test 10/15/20 11:46 10/15/20 20:25 10/15/20 20:30 10/16/20 03:40 Glucose (Fingerstick) 121 mg/dL (70-99) 123 mg/dL (70-99) Heparin Anti-Xa Act, Unfractionated < 0.10 IU/mL (0.30-0.70) < 0.10 IU/mL (0.30-0.70) White Blood Count 5.9 x10^3/uL (4.0-11.0) Red Blood Count 3.67 x10^6/uL (4.30-5.70) Hemoglobin 10.9 g/dL (13.0-17.5) Hematocrit 32.2 % (39.0-53.0) Mean Corpuscular Volume 88 fL (79-100) Mean Corpuscular Hemoglobin 30 pg (25-35) Mean Corpuscular Hemoglobin Concent 34 g/dL (31-37) Red Cell Distribution Width 14.7 % (11.5-14.5) Platelet Count 230 x10^3/uL (140-400) Neutrophils (%) (Auto) 61 % (31-73) Lymphocytes (%) (Auto) 20 % (24-48) Monocytes (%) (Auto) 11 % (0-9) Eosinophils (%) (Auto) 7 % (0-3) Basophils (%) (Auto) 1 % (0-3) Neutrophils # (Auto) 3.6 x10^3/uL (1.8-7.7) Lymphocytes # (Auto) 1.2 x10^3/uL (1.0-4.8) Monocytes # (Auto) 0.6 x10^3/uL (0.0-1.1) Eosinophils # (Auto) 0.4 x10^3/uL (0.0-0.7) Basophils # (Auto) 0.1 x10^3/uL (0.0-0.2) Segmented Neutrophils % 43 % (35-66) Band Neutrophils % 5 % (0-9) Lymphocytes % 37 % (24-48) Atypical Lymphocytes % (Manual) 1 % (0-0) Monocytes % 5 % (0-10) Eosinophils % 5 % (0-5) Basophils % 1 % (0-3) Metamyelocytes % 2 % (0-0) Myelocytes % 1 % (0-0) Platelet Estimate Adequate (ADEQUATE) Large Platelets Occ Polychromasia Slight Anisocytosis Slight Sodium Level 144 mmol/L (136-145) Potassium Level 3.8 mmol/L (3.5-5.1) Chloride Level 106 mmol/L (98-107) Carbon Dioxide Level 31 mmol/L (21-32) Anion Gap 7 (6-14) Blood Urea Nitrogen 12 mg/dL (8-26) Creatinine 0.8 mg/dL (0.7-1.3) Estimated GFR (Cockcroft-Gault) 97.6 Glucose Level 129 mg/dL (70-99) Calcium Level 8.4 mg/dL (8.5-10.1) Phosphorus Level 4.3 mg/dL (2.6-4.7) Magnesium Level 1.7 mg/dL (1.8-2.4) Medications Active Scripts Medications Dose Route/Sig Max Daily Dose Days Date Category Icosapent Ethyl 1 Gm Capsule 2 Cap PO BID 09/20/20 Reported Metformin Hcl 1,000 Mg Tablet 1 Tab PO BID 09/20/20 Reported Rybelsus (Semaglutide) 7 Mg Tablet 1 Tab PO DAILY 09/20/20 Reported Farxiga (Dapagliflozin Propanediol) 10 Mg Tablet 1 Tab PO DAILY 09/20/20 Reported Trelegy Ellipta 100-62.5-25 (Fluticasone/Umeclidin/Vilanter) 1 Each Blst.w.dev 1 Puff INH DAILY 09/20/20 Reported Benzonatate 200 Mg Capsule 1 Cap PO TID PRN 09/20/20 Reported Montelukast Sodium 10 Mg Tablet 1 Tab PO DAILY 09/20/20 Reported Loratadine 10 Mg Tablet 1 Tab PO DAILY 09/20/20 Reported Fluticasone Propionate Nasal [place] (Fluticasone Propionate) 16 Gm [place].susp 1 Sprays NS BID 09/20/20 Reported Simvastatin 20 Mg Tablet 1 Tab PO QHS 11/20/15 Reported Impression . 1. Acute hypoxic respiratory failure secondary to COVID-19 viral pneumonia/acute lung injury.---intubated 09/23/20. Status post extubation 10/14 2. Abnormal chest x-ray consistent with mild infiltrates favoring COVID-19 viral pneumonia. 3. Leukopenia and thrombocytopenia due to COVID-19 viral pneumonia.--improved 4. No significant tobacco history. 5. Encephalopathy, multifactorial, prior to intubation 6. Delirium 7. Critical care myopathy 8. New onset A. fib with rapid ventricular response 10/15 Chest x-ray reviewed bilateral pulmonary infiltrates compatible with CHF Plan . Updated 10/16 Patient continues to be critically ill in the intensive care unit, respiratory status tenuous Currently on Venturi mask Continue as needed BiPAP IV Lasix Extubated 10/14 DVT GI prophylaxis Discussed with Total cumulative critical care time of approximately 33 to 35 minutes, reviewing the current documentation, chest x-ray, labs, formulating and impression and plan. updated 10/15 Patient in A. fib currently on IV Cardizem Extubated 10/14, currently on BiPAP holding his own Face mask not sealing very well, will proceed with shaving his whiskers IV Lasix Chest x-ray reviewed slightly worse Discussed case with at the bedside Total cumulative critical care time of 30 minutes with no overlap Labs reviewed, magnesium 1.8 Updated 10/14 See yesterday's note Continue pressure support Discussed with RT and RN CANDI MCCARTHY MD Oct 16, 2020 08:22
[2020-10-16] MEDS ORDERED: MAGNESIUM SULFATE 2GM 50 ML IV ONE (09:45)
--- NOTE | 2020-10-16 10:08 | NUR ---
SS following up with discharge planning. SS reviewed pt chart and discussed with pt RN. Pt extubated on 10/14/2020 and currently on Venti Mask at 50% and BIPAP 40% at HS. Pt on IV Zosyn and IV Lasix. Pt on Precedex and Heparin drip. COVID19 recovered. SS will continue to follow for discharge planning.
[2020-10-16] MEDS: ENALAPRILAT 1.25 MG/ML VIAL. IVP PRN (12:42)
--- NOTE | 2020-10-16 12:53 | PDOC ---
PROGRESS NOTES Date of Service: DATE: 10/16/20 TIME: 12:50 Subjective Subjective Patient more alert today, on Venturi mask Objective Objective Vital Signs Date Time Temp Pulse Resp B/P (MAP) Pulse Ox O2 Delivery O2 Flow Rate FiO2 10/16/20 12:42 85 179/79 10/16/20 12:00 Venturi Mask 10/16/20 12:00 98.8 34 97 98.8 10/16/20 08:35 15.0 Intake and Output 10/16/20 07:00 Intake Total 763 ml Output Total 3775 ml Balance -3012 ml IV Total 763 ml Output Urine Total 3775 ml Physical Exam Abdomen: Soft Heart: Other (Heart rate tachycardic and irregular) Extremities: No cyanosis General: mild distress HEENT: Atraumatic, Other (On BiPAP) Lungs: Other (Scattered crepitations bilaterally) MUSCULOSKELETAL: Osteoarthritic changes both hands Skin: No rashes, No significant lesion Assessment Assessment 1. Acute hypoxic respiratory failure secondary to Covid pneumonia: s/p extubation earlier today and presently on BiPAP. Continue management per pulmonary team. 2. Atrial fibrillation with RVR during extubation attempts, presently back in sinus rhythm. Cardizem was stopped secondary to bradycardia. Plan event monitor as an outpatient to guide antiarrhythmic and anticoagulation therapy. His LVEF in 2014 was noted to be 40 to 45%. We will check 2D echo to assess left ventricle systolic function. 3. Coronary artery disease s/p single-vessel coronary artery bypass surgery with GUZMAN to LAD. Cardiac catheterization in 2016 showed patent graft. He seems to be clinically stable. Continue current secondary prevention measures. 4. Hypertension: Labile 5. Hyperlipidemia: Statins 6. Diabetes mellitus type 2: Treat per IM Plan Plan of Care Problems Medical Problems: (1) Bilateral pulmonary infiltrates on CXR Status: Acute (2) Fever Status: Acute (3) Hypoxia Status: Acute (4) Lab test positive for detection of COVID-19 virus Status: Acute Comment Review of Relevant I have reviewed the following items lukasz (where applicable) has been applied. Labs Laboratory Tests Test 10/15/20 20:25 10/15/20 20:30 10/16/20 03:40 10/16/20 10:05 Heparin Anti-Xa Act, Unfractionated < 0.10 IU/mL (0.30-0.70) < 0.10 IU/mL (0.30-0.70) < 0.10 IU/mL (0.30-0.70) Glucose (Fingerstick) 123 mg/dL (70-99) White Blood Count 5.9 x10^3/uL (4.0-11.0) Red Blood Count 3.67 x10^6/uL (4.30-5.70) Hemoglobin 10.9 g/dL (13.0-17.5) Hematocrit 32.2 % (39.0-53.0) Mean Corpuscular Volume 88 fL (79-100) Mean Corpuscular Hemoglobin 30 pg (25-35) Mean Corpuscular Hemoglobin Concent 34 g/dL (31-37) Red Cell Distribution Width 14.7 % (11.5-14.5) Platelet Count 230 x10^3/uL (140-400) Neutrophils (%) (Auto) 61 % (31-73) Lymphocytes (%) (Auto) 20 % (24-48) Monocytes (%) (Auto) 11 % (0-9) Eosinophils (%) (Auto) 7 % (0-3) Basophils (%) (Auto) 1 % (0-3) Neutrophils # (Auto) 3.6 x10^3/uL (1.8-7.7) Lymphocytes # (Auto) 1.2 x10^3/uL (1.0-4.8) Monocytes # (Auto) 0.6 x10^3/uL (0.0-1.1) Eosinophils # (Auto) 0.4 x10^3/uL (0.0-0.7) Basophils # (Auto) 0.1 x10^3/uL (0.0-0.2) Segmented Neutrophils % 43 % (35-66) Band Neutrophils % 5 % (0-9) Lymphocytes % 37 % (24-48) Atypical Lymphocytes % (Manual) 1 % (0-0) Monocytes % 5 % (0-10) Eosinophils % 5 % (0-5) Basophils % 1 % (0-3) Metamyelocytes % 2 % (0-0) Myelocytes % 1 % (0-0) Platelet Estimate Adequate (ADEQUATE) Large Platelets Occ Polychromasia Slight Anisocytosis Slight Sodium Level 144 mmol/L (136-145) Potassium Level 3.8 mmol/L (3.5-5.1) Chloride Level 106 mmol/L (98-107) Carbon Dioxide Level 31 mmol/L (21-32) Anion Gap 7 (6-14) Blood Urea Nitrogen 12 mg/dL (8-26) Creatinine 0.8 mg/dL (0.7-1.3) Estimated GFR (Cockcroft-Gault) 97.6 Glucose Level 129 mg/dL (70-99) Calcium Level 8.4 mg/dL (8.5-10.1) Phosphorus Level 4.3 mg/dL (2.6-4.7) Magnesium Level 1.7 mg/dL (1.8-2.4) Microbiology 10/13/20 Blood Culture - Preliminary, Resulted NO GROWTH AFTER 3 DAYS 10/13/20 Gram Stain Evaluation - Final, Complete 10/13/20 Respiratory Culture - Final, Complete 10/13/20 Urine Culture - Final, Complete 10/13/20 Antimicrobic Susceptibility - Final, Complete Medications Current Medications Heparin Sodium (Porcine) (Heparin Sodium) 2,850 unit PRN Q6HRS PRN IV FOR UFH LEVEL LESS THAN 0.2 Last administered on 10/16/20at 11:41; Start 10/15/20 at 14:00 Heparin Sodium/ Dextrose 250 ml @ 0 mls/hr CONT PRN IV PER PROTOCOL Last administered on 10/16/20at 08:17; Start 10/15/20 at 14:00 Magnesium Sulfate 50 ml @ 25 mls/hr 1X ONCE IV Last administered on 10/16/20at 09:52; Start 10/16/20 at 09:45; Stop 10/16/20 at 11:44; Status DC Perflutren Protein Type A Microsphe (Optison) 0.66 mg 1X ONCE IV ; Start 10/16/20 at 07:30; Stop 10/16/20 at 07:31; Status DC Perflutren Protein Type A Microsphe (Optison) 0.66 mg STK-MED ONCE IV ; Start 10/16/20 at 07:43; Stop 10/16/20 at 07:43; Status DC Vitals/I & O Vital Sign - Last 24 Hours 10/15/20 10/15/20 10/15/20 10/15/20 13:00 13:37 14:00 15:00 Pulse 118 105 118 Resp 26 28 26 B/P (MAP) 140/65 (90) 142/59 (86) 146/74 (98) Pulse Ox 94 93 93 99 O2 Delivery BiPAP/CPAP BiPAP/CPAP BiPAP/CPAP BiPAP/CPAP 10/15/20 10/15/20 10/15/20 10/15/20 15:39 16:00 16:00 17:00 Temp 98.9 98.9 Pulse 102 121 28 B/P (MAP) 140/67 (91) 137/70 (92) Pulse Ox 99 99 99 O2 Delivery BiPAP/CPAP BiPAP/CPAP Bi-pap BiPAP/CPAP 10/15/20 10/15/20 10/15/20 10/15/20 17:23 17:35 17:53 18:00 Pulse 68 Resp 28 30 B/P (MAP) 148/76 (100) Pulse Ox 95 99 99 99 O2 Delivery BiPAP/CPAP BiPAP/CPAP BiPAP/CPAP BiPAP/CPAP 10/15/20 10/15/20 10/15/20 10/15/20 19:30 20:00 20:05 20:30 Temp 97.9 97.9 Pulse 62 62 Resp 25 B/P (MAP) 137/64 (88) 154/66 (95) Pulse Ox 99 99 99 O2 Delivery BiPAP/CPAP Bi-pap BiPAP/CPAP BiPAP/CPAP 10/15/20 10/15/20 10/15/20 10/15/20 21:00 22:00 22:08 22:38 Pulse 69 74 Resp 20 B/P (MAP) 174/73 (106) 161/65 (97) Pulse Ox 99 100 99 O2 Delivery BiPAP/CPAP BiPAP/CPAP 10/15/20 10/15/20 10/16/20 10/16/20 23:00 23:05 00:00 00:01 Temp 98.8 98.8 Pulse 70 72 Resp 25 B/P (MAP) 166/67 (100) 169/74 (105) Pulse Ox 100 99 100 O2 Delivery BiPAP/CPAP BiPAP/CPAP Bi-pap BiPAP/CPAP 10/16/20 10/16/20 10/16/20 10/16/20 01:00 02:00 02:05 03:00 Temp 98.4 98.4 Pulse 56 74 62 Resp 25 27 23 B/P (MAP) 140/61 (87) 187/86 (119) 174/72 (106) Pulse Ox 100 100 100 100 O2 Delivery BiPAP/CPAP BiPAP/CPAP BiPAP/CPAP BiPAP/CPAP 10/16/20 10/16/20 10/16/20 10/16/20 04:00 04:00 04:05 05:00 Pulse 66 57 64 Resp 23 25 B/P (MAP) 189/75 (113) 174/72 191/74 (113) Pulse Ox 100 100 O2 Delivery BiPAP/CPAP Bi-pap BiPAP/CPAP 10/16/20 10/16/20 10/16/20 10/16/20 05:10 06:00 07:00 08:00 Pulse 66 66 Resp 24 28 B/P (MAP) 178/74 (108) 176/71 (106) Pulse Ox 99 100 100 O2 Delivery BiPAP/CPAP BiPAP/CPAP BiPAP/CPAP Bi-pap 10/16/20 10/16/20 10/16/20 10/16/20 08:00 08:17 08:35 09:00 Temp 98.4 98.4 Pulse 74 78 Resp 24 29 B/P (MAP) 183/77 (112) 153/73 (99) Pulse Ox 100 99 98 96 O2 Delivery BiPAP/CPAP BiPAP/CPAP Venturi Mask Venturi Mask O2 Flow Rate 15.0 10/16/20 10/16/20 10/16/20 10/16/20 10:00 10:40 11:00 12:00 Temp 98.8 98.8 Pulse 74 77 104 85 Resp 29 34 34 B/P (MAP) 165/81 (109) 178/71 158/71 (100) 168/62 (97) Pulse Ox 97 97 97 O2 Delivery Venturi Mask Venturi Mask Venturi Mask 10/16/20 10/16/20 12:00 12:42 Pulse 85 B/P (MAP) 179/79 O2 Delivery Venturi Mask Intake and Output 10/15/20 10/15/20 10/16/20 15:00 23:00 07:00 Intake Total 250 ml 513 ml Output Total 2475 ml 950 ml 350 ml Balance -2225 ml -437 ml -350 ml NIKHIL CALDERA MD Oct 16, 2020 12:53
--- NOTE | 2020-10-16 14:00 | PDOC ---
[facility] PROGRESS NOTE Date of Service DOS: DATE: 10/16/20 TIME: 13:58 Chief Complaint Chief Complaint A/P: Acute COVID-19 pneumonia - s/p steroids, remdesivir Acute hypoxic respiratory failure - 2/2 COVID and ARDS Sepsis - due to above Bradycardia - unable to tolerate BB Diabetes mellitus type 2 HTN HLD CAD - 01/2012 with LESLEY to LAD (in-stent thrombosis) prompting CABG in the with GUZMAN to LAD. Acute on chronic combined systolic and diastolic CHF - lasix prn. Will echo and BNP h/o Cardiomyopathy - historically EF of 40-45%. FEN - NGT feeds PPX - Lovenox for DVT prophylaxis, Protonix GI prophylaxis Full code Dispo - ICU Discussed with RN and SW Disposition patient management as above Surrogate decision maker is the Jenni Morrissey History of Present Illness History of Present Illness Mr Morrissey is a 65-year-old white male w/ PMHx HTN, DM2, HLD, GERD, CAD s/p CABG 2011 presented to ED due to worsening cough and shortness of breath; patient also experiencing vomiting and diarrhea. Patient was recently diagnosed with COVID-19 on September 11 and has been doing well since that until a few days prior to arrival when his symptoms acutely worsened this morning. Has not received Covid vaccine. Close contacts at home have very similar symptoms. 09/21: Patient saturating 98% on 10 L nasal cannula. Increasing O2 requirements may consider pulmonology consult. On remdesivir, steroids 09/22: Patient saturating 91% on 10 L nasal cannula. Shortness of breath with ambulation. Combivent inhaler ordered today. 09/23: Patient is requiring increasing O2 requirements. Saturating 88% on 15 L nonrebreather and also nasal cannula. ICU transfer and intubated. 09/24: In ICU on vent. Afebrile, currently breathing FiO2 100%, PEEP 10. Final dose of remdesivir today. 09/25: Afebrile. On vent with FiO2 80%, PEEP 9. He has completed course of remdesivir. IV steroids for total dose 10 days and IV Zosyn. 09/26: Afebrile. Remains on vent with FiO2 70%, PEEP 8. Completed remdesivir. Continue prophylactic IV Zosyn. 09/27: No acute events overnight. Afebrile. On vent with FiO2 70%, PEEP 8. Cont IV antibiotics and steroids, with taper. Completed remdesivir. 09/28: Afebrile. On vent with FiO2 90%, PEEP 8. Completed remdesivir. Continue IV antibiotics. KUB with good OGT placement 09/29: Afebrile. On vent with increased oxygen requirement, FiO2 100%, PEEP 8. CXR increasing bilateral airspace opacities 09/30: On vent with FiO2 90%, PEEP 8. Afebrile. Steroids have been increased to dexamethasone 20 mg for 5 days, 10 mg for 5 days 10/01: No acute events overnight. Patient saturating 97% on vent settings of 22/500/80/8. Currently sedated and intubated. 10/02: Patient saturating 95% on vent settings of 22/500/75/7. ABG expected at 7.4 /72/28. Currently intubated and sedated. 10/03: No acute events overnight. Patient saturating 94% on vent settings of 22/500/75/7. Improved sugar control. 10/04: Saturating 100% on vent settings of 22/500/65/7. Last ABG show pH of 7.5 /113/28. Adjustments to vent settings by pulmonology. 10/05: No acute events overnight. Patient saturating 96% on vent settings of 20/500/65/7. Discussed prognosis with family. 10/06: No acute events overnight. Patient saturating 95% on vent settings of 20/500/50/6. No other concerns from nursing at this time. 10/07: No acute events overnight. Patient saturating 96% on vent settings of 20/500/50/6. T-max of 100.3. 10/08: Afebrile overnight. Sedated with propofol Versed and fentanyl PEEP of 6 FiO2 50% ABG 7.4 . Discussed with bedside. 10/09: T-max 100.3 F. Sedated with propofol Versed fentanyl, O2 saturations 96%, ABG 7.4 on FiO2 50% and normal PEEP of 6. D/w bedside. Good UOP 10/10: Afebrile. Sedation wean this morning respirations increased significantly back on sedation. ABG 7.40 FiO2 45% PEEP 6. Discussed with be dside O2 is significantly improving. 10/11: Afebrile. Agitated with sedation wean added Precedex. FiO2 40% PEEP 5. Will attempt sedation wean again today. D/w bedside. 10/12: Chest radiograph improved . ABG 7.4 8/35/95 on 40% FiO2 PEEP 5. Respiratory rate 28 with wean this morning and blood pressure elevated. Will try to wean again later today. Discussed with at bedside 10/13: Febrile 101.1 F overnight. Very agitated with attempted wean with increased BP ABG 7.471/38.4/71.2 on FiO2 40% PEEP 5. Respiratory blood and urine cultures for fever. Zosyn for coverage for possible VAP, f/u CXR 10/14: Afebrile. O2 saturations improved with furosemide. Urine output 2.7 L. K3.3 mag 1.7 WBC 7.6, Hb 9.3, platelets 158. Starting vent wean. Cultures pending, still on zosyn 10/13 Discussed with Pulmonology adding low-dose Haldol with vent weans will hold on propofol as QT sees around 470. Will maintain telemetry. As needed hydralazine and Vasotec for elevated blood pressure. Discussed with bedside CC time 34 minutes 10/15/2020: Patient seen and examined in the ICU with family present. Currently on BiPAP 16/16, 50% FiO2, and rate 20. Sedated with dexmedetomidine. On diltiazem drip. Amado to BSD. Rectal bag present. Triple lumen PICC in the right arm and right heel ulcer present. Chest x-ray from today showed stable diffuse bilateral opacities.Discussed with RN. Chart reviewed. 10/16/2020 Patient seen and examined in the ICU His is present Currently on Ventimask 50% FiO2 Chart reviewed Discussed with RN He is still quite ill Vitals/I&O Vitals/I&O: Vital Signs Date Time Temp Pulse Resp B/P (MAP) Pulse Ox O2 Delivery O2 Flow Rate FiO2 10/16/20 13:45 97 Venturi Mask 15.0 10/16/20 13:00 82 41 179/79 (112) 10/16/20 12:00 98.8 98.8 I & O 10/15/20 10/15/20 10/16/20 15:00 23:00 07:00 Intake Total 250 ml 513 ml Output Total 2475 ml 950 ml 350 ml Balance -2225 ml -437 ml -350 ml Physical Exam General: mild distress Heart: Other (Heart rate tachycardic and irregular) Lungs: Crackles Abdomen: Soft Extremities: No cyanosis Skin: No rashes, No significant lesion Labs Labs: Laboratory Tests Test 10/15/20 20:25 10/15/20 20:30 10/16/20 03:40 10/16/20 10:05 Heparin Anti-Xa Act, Unfractionated < 0.10 IU/mL (0.30-0.70) < 0.10 IU/mL (0.30-0.70) < 0.10 IU/mL (0.30-0.70) Glucose (Fingerstick) 123 mg/dL (70-99) White Blood Count 5.9 x10^3/uL (4.0-11.0) Red Blood Count 3.67 x10^6/uL (4.30-5.70) Hemoglobin 10.9 g/dL (13.0-17.5) Hematocrit 32.2 % (39.0-53.0) Mean Corpuscular Volume 88 fL (79-100) Mean Corpuscular Hemoglobin 30 pg (25-35) Mean Corpuscular Hemoglobin Concent 34 g/dL (31-37) Red Cell Distribution Width 14.7 % (11.5-14.5) Platelet Count 230 x10^3/uL (140-400) Neutrophils (%) (Auto) 61 % (31-73) Lymphocytes (%) (Auto) 20 % (24-48) Monocytes (%) (Auto) 11 % (0-9) Eosinophils (%) (Auto) 7 % (0-3) Basophils (%) (Auto) 1 % (0-3) Neutrophils # (Auto) 3.6 x10^3/uL (1.8-7.7) Lymphocytes # (Auto) 1.2 x10^3/uL (1.0-4.8) Monocytes # (Auto) 0.6 x10^3/uL (0.0-1.1) Eosinophils # (Auto) 0.4 x10^3/uL (0.0-0.7) Basophils # (Auto) 0.1 x10^3/uL (0.0-0.2) Segmented Neutrophils % 43 % (35-66) Band Neutrophils % 5 % (0-9) Lymphocytes % 37 % (24-48) Atypical Lymphocytes % (Manual) 1 % (0-0) Monocytes % 5 % (0-10) Eosinophils % 5 % (0-5) Basophils % 1 % (0-3) Metamyelocytes % 2 % (0-0) Myelocytes % 1 % (0-0) Platelet Estimate Adequate (ADEQUATE) Large Platelets Occ Polychromasia Slight Anisocytosis Slight Sodium Level 144 mmol/L (136-145) Potassium Level 3.8 mmol/L (3.5-5.1) Chloride Level 106 mmol/L (98-107) Carbon Dioxide Level 31 mmol/L (21-32) Anion Gap 7 (6-14) Blood Urea Nitrogen 12 mg/dL (8-26) Creatinine 0.8 mg/dL (0.7-1.3) Estimated GFR (Cockcroft-Gault) 97.6 Glucose Level 129 mg/dL (70-99) Calcium Level 8.4 mg/dL (8.5-10.1) Phosphorus Level 4.3 mg/dL (2.6-4.7) Magnesium Level 1.7 mg/dL (1.8-2.4) Assessment and Plan Assessmemt and Plan Problems Medical Problems: (1) Bilateral pulmonary infiltrates on CXR Status: Acute (2) Fever Status: Acute (3) Hypoxia Status: Acute (4) Lab test positive for detection of COVID-19 virus Status: Acute Acute COVID-19 pneumonia - s/p steroids, remdesivir Acute hypoxic respiratory failure - 2/2 COVID and ARDS Sepsis - due to above Bradycardia - unable to tolerate BB Diabetes mellitus type 2 HTN HLD CAD - 01/2012 with LESLEY to LAD (in-stent thrombosis) prompting CABG in the with GUZMAN to LAD. Acute on chronic combined systolic and diastolic CHF - lasix prn. Will echo and BNP h/o Cardiomyopathy - historically EF of 40-45%. Plan: 1) Continue ICU monitoring 2) Trying to wean off Ventimask 3) Continue IV sedation with dexmedetomidine 4) Continue IV diltiazem 5) Appreciate subspecialty consult: - Pulmonology (10/15): Patient in A. fib currently on IV Cardizem. Extubated 10/14, currently on BiPAP holding his own. Face mask not sealing very well, will p roceed with shaving his whiskers. IV Lasix. Chest x-ray reviewed slightly worse. 6) SCD for DVT prophylaxis 7) Full code 8) Home medications Prognosis guarded CC time 33 minutes Comment Review of Relevant I have reviewed the following items lukasz (where applicable) has been applied. Medications: Current Medications Medications (Trade) Dose Ordered Sig/Khadar Route PRN Reason Start Time Stop Time Status Last Admin Dose Admin Heparin Sodium/ Dextrose 250 ml @ 0 mls/hr CONT PRN IV PER PROTOCOL 10/15/20 14:00 10/16/20 12:56 DC 10/16/20 08:17 Heparin Sodium (Porcine) (Heparin Sodium) 2,850 unit PRN Q6HRS PRN IV FOR UFH LEVEL LESS THAN 0.2 10/15/20 14:00 10/16/20 12:56 DC 10/16/20 11:41 Perflutren Protein Type A Microsphe (Optison) 0.66 mg 1X ONCE IV 10/16/20 07:30 10/16/20 07:31 DC 10/16/20 07:30 Magnesium Sulfate 50 ml @ 25 mls/hr 1X ONCE IV 10/16/20 09:45 10/16/20 11:44 DC 10/16/20 09:52 Justifications for Admission Other Justification MARLEY JIMENEZ III DO Oct 16, 2020 14:00
[2020-10-16] MEDS: ENOXAPARIN 40 MG/0.4 ML SYRINGE. SQ SCH (14:16)
--- NOTE | 2020-10-16 16:44 | CARD ---
MR#: [id number] Date of Study: 10/16/2020 Ordering Physician: ALCIDES DAVIS, Referring Physician: ALCIDES DAVIS, Tech: Leda Fuentes [facility] APPROVED REPORT EXAM: Two-dimensional and M-mode echocardiogram with Doppler and color Doppler. Other Information Quality : Technically LimitedHR: 81bpm Rhythm : NSR INDICATION Dyspnea Echo Enhancing Agent Indication: Endocardial border delineation Agent/Amount Used: Optison 2mL RISK FACTORS Hypertension Obesity 2D DIMENSIONS RVDd3.5 (2.9-3.5cm)Left Atrium(2D)4.1 (1.6-4.0cm) IVSd1.2 (0.7-1.1cm)Aortic Root(2D)3.7 (2.0-3.7cm) LVDd5.8 (3.9-5.9cm)LVOT Diameter2.5 (1.8-2.4cm) PWd1.1 (0.7-1.1cm)LVDs3.6 (2.5-4.0cm) FS (%) 38.3 %SV111.5 ml LVEF(%)67.8 (>50%) Aortic Valve AoV Peak Tramaine.161.6cm/sAoV VTI28.5cm AO Peak GR.10.4mmHgLVOT Peak Tramaine.101.5cm/s AO Mean GR.5mmHgAVA (VMAX)3.06cm2 Mitral Valve MV E Nercfepf078.9cm/sMV DECEL GCPW478ce MV A Knzrexbr61.4cm/sE/A Ratio1.8 Pulmonary Valve PV Peak Jedylykr482.1cm/s Tricuspid Valve TR P. Fpigemhr183qd/sTR Peak Gr.30mmHg LEFT VENTRICLE The left ventricle is normal size. There is mild concentric left ventricular hypertrophy. The left ve ntricular systolic function is normal and the ejection fraction is within normal range. Estimated ej ection fraction 55-60%. There is normal LV segmental wall motion. Transmitral Doppler flow pattern is Grade I-abnormal relaxation pattern. RIGHT VENTRICLE The right ventricle is normal size. There is normal right ventricular wall thickness. Systolic functi on is mildly reduced. ATRIA The left atrium size is normal. The right atrium size is normal. The interatrial septum is intact wit h no evidence for an atrial septal defect or patent foramen ovale as noted on 2-D or Doppler imaging. AORTIC VALVE The aortic valve is normal in structure and function. Doppler and Color Flow revealed no significant aortic regurgitation. There is no significant aortic valvular stenosis. MITRAL VALVE The mitral valve is normal in structure and function. There is no evidence of mitral valve prolapse. There is no mitral valve stenosis. Doppler and Color-flow revealed trace mitral regurgitation. TRICUSPID VALVE The tricuspid valve is normal in structure and function. Doppler and Color Flow revealed trace tricus pid regurgitation. Estimated PAP of 45 mmHg. There is no tricuspid valve stenosis. PULMONIC VALVE The pulmonary valve is normal in structure and function. Doppler and Color Flow revealed no pulmonic valvular regurgitation. GREAT VESSELS The aortic root is normal size. The IVC is dilated and collapses >50% with inspiration. PERICARDIAL EFFUSION There is no evidence of significant pericardial effusion. Critical Notification Critical Value: No <Conclusion> The left ventricle is normal size. The left ventricular systolic function is normal and the ejection fraction is within normal range. Estimated ejection fraction 55-60%. There is mild concentric left ventricular hypertrophy. Doppler and Color Flow revealed no significant aortic regurgitation. There is no significant aortic valvular stenosis. Doppler and Color-flow revealed trace mitral regurgitation. Doppler and Color Flow revealed trace tricuspid regurgitation. Estimated PAP of 45 mmHg. Signed by : Corwin Kam MD Electronically Approved : 10/16/2020 16:43:22
[2020-10-16] MEDS: SIMVASTATIN 20 MG TABLET PO SCH (21:00)
[2020-10-17] VITALS (25 sets, daily range): BP systolic 93–185; BP diastolic 58–83
[2020-10-17] MEDS: PIPERACILLIN/TAZOBACTAM 3.375 GM in IV NORMAL SALINE 50ML 50 ML IV SCH ×4 (00:43→17:21)
[2020-10-17] MEDS: DEXMEDETOMIDINE 400 MCG in IV NORMAL SALINE 100ML 96 ML IV PRN ×3 (02:21→07:55)
[2020-10-17] MEDS: hydrALAZINE 20 MG/ML VIAL. IVP PRN ×2 (02:49→21:45)
[2020-10-17] MEDS: INSULIN LISPRO 300 UNITS/3 ML VIAL. SQ SCH ×4 (06:00→17:20)
[2020-10-17 06:54] LABS: CALCIUM 8.4 mg/dL (8.5-10.1); CREATININE 0.7 mg/dL (0.7-1.3); GFR 113.9; MAGNESIUM 1.7 mg/dL (1.8-2.4); POTASSIUM 3.5 mmol/L (3.5-5.1)
[2020-10-17] MEDS ORDERED: MAGNESIUM SULFATE 2GM 50 ML IV ONE (07:00)
[2020-10-17] MEDS: SENNOSIDES/DOCUSATE 8.6/50MG TABLET. PO SCH ×2 (07:08→21:00)
[2020-10-17] MEDS: ZINC SULFATE 220 MG CAPSULE. PO SCH (07:08)
[2020-10-17] MEDS: ASCORBIC ACID 1,000 MG TABLET PO SCH ×3 (07:08→21:00)
[2020-10-17] MEDS: ASPIRIN CHEWABLE 81 MG TABLET. PO SCH (07:08)
[2020-10-17] MEDS: MULTIVITAMINS,THERAPEUTIC 5 ML ORAL LIQUID. PEG SCH (07:08)
[2020-10-17] MEDS: PANTOPRAZOLE IV PUSH 40 MG VIAL. IVP SCH (07:41)
[2020-10-17] MEDS: INSULIN GLARGINE SYRINGE. SQ SCH ×2 (07:41→21:00)
[2020-10-17] MEDS: FUROSEMIDE 40 MG/4 ML VIAL. IVP SCH (07:41)
[2020-10-17] MEDS: NYSTATIN TOPICAL POWDER 15GM BOTTLE. TP SCH ×2 (07:56→23:53)
--- NOTE | 2020-10-17 08:16 | RAD ---
EXAMINATION: Chest radiograph. VIEWS: Single view COMPARISON: 10/15/2020 INDICATION:65 years, Male, respiratory failure. FINDINGS: Stable cardiomegaly. Unchanged diffuse bilateral patchy airspace opacities. No pleural effusion or pn eumothorax. No acute osseous process. Right PICC catheter remains unchanged in position. Median mckeon otomy wires. IMPRESSION: No significant changes since earlier exam. Electronically signed by: Allen Young MD (10/17/2020 8:13 AM) [id number]
[2020-10-17 08:36] LABS: BASE EXCESS ABG 1 mmol/L (-3-3); HCO3 ABG 25 mmol/L (21-28); PCO2 ABG 38 mmHg (35-46); PO2 ABG 105 mmHg (65-108); SAT O2 ABG 98 % (92-99)
--- NOTE | 2020-10-17 08:56 | PDOC ---
[employer] PROGRESS NOTE Date of Service DOS: DATE: 10/17/20 TIME: 08:54 Chief Complaint Chief Complaint A/P: Acute COVID-19 pneumonia - s/p steroids, remdesivir Acute hypoxic respiratory failure - 2/2 COVID and ARDS Sepsis - due to above Bradycardia - unable to tolerate BB Diabetes mellitus type 2 HTN HLD CAD - 01/2012 with LESLEY to LAD (in-stent thrombosis) prompting CABG in the with GUZMAN to LAD. Acute on chronic combined systolic and diastolic CHF - lasix prn. Will echo and BNP h/o Cardiomyopathy - historically EF of 40-45%. FEN - NGT feeds PPX - Lovenox for DVT prophylaxis, Protonix GI prophylaxis Full code Dispo - ICU Discussed with RN and SW Disposition patient management as above Surrogate decision maker is the Jenni Morrissey History of Present Illness History of Present Illness 10/17/2020 Patient seen and examined in the ICU His is present Currently back on BiPAP 25/07 with 40% FiO2 O2 sat is 99% I reviewed the chest x-rays and labs with his Chart reviewed Discussed with RN He remains critically ill Mr Morrissey is a 65-year-old white male w/ PMHx HTN, DM2, HLD, GERD, CAD s/p CABG 2011 presented to ED due to worsening cough and shortness of breath; patient also experiencing vomiting and diarrhea. Patient was recently diagnosed with COVID-19 on September 11 and has been doing well since that until a few days prior to arrival when his symptoms acutely worsened this morning. Has not received Covid vaccine. Close contacts at home have very similar symptoms. 09/21: Patient saturating 98% on 10 L nasal cannula. Increasing O2 requirements may consider pulmonology consult. On remdesivir, steroids 09/22: Patient saturating 91% on 10 L nasal cannula. Shortness of breath with ambulation. Combivent inhaler ordered today. 09/23: Patient is requiring increasing O2 requirements. Saturating 88% on 15 L nonrebreather and also nasal cannula. ICU transfer and intubated. 09/24: In ICU on vent. Afebrile, currently breathing FiO2 100%, PEEP 10. Final dose of remdesivir today. 09/25: Afebrile. On vent with FiO2 80%, PEEP 9. He has completed course of remdesivir. IV steroids for total dose 10 days and IV Zosyn. 09/26: Afebrile. Remains on vent with FiO2 70%, PEEP 8. Completed remdesivir. Continue prophylactic IV Zosyn. 09/27: No acute events overnight. Afebrile. On vent with FiO2 70%, PEEP 8. Cont IV antibiotics and steroids, with taper. Completed remdesivir. 09/28: Afebrile. On vent with FiO2 90%, PEEP 8. Completed remdesivir. Continue IV antibiotics. KUB with good OGT placement 09/29: Afebrile. On vent with increased oxygen requirement, FiO2 100%, PEEP 8. CXR increasing bilateral airspace opacities 09/30: On vent with FiO2 90%, PEEP 8. Afebrile. Steroids have been increased to dexamethasone 20 mg for 5 days, 10 mg for 5 days 10/01: No acute events overnight. Patient saturating 97% on vent settings of 22/500/80/8. Currently sedated and intubated. 10/02: Patient saturating 95% on vent settings of 22/500/75/7. ABG expected at 7.4 /72/28. Currently intubated and sedated. 10/03: No acute events overnight. Patient saturating 94% on vent settings of 22/500/75/7. Improved sugar control. 10/04: Saturating 100% on vent settings of 22/500/65/7. Last ABG show pH of 7.5 //28. Adjustments to vent settings by pulmonology. 10/05: No acute events overnight. Patient saturating 96% on vent settings of 20/500/65/7. Discussed prognosis with family. 10/06: No acute events overnight. Patient saturating 95% on vent settings of 20/500/50/6. No other concerns from nursing at this time. 10/07: No acute events overnight. Patient saturating 96% on vent settings of 20/500/50/6. T-max of 100.3. 10/08: Afebrile overnight. Sedated with propofol Versed and fentanyl PEEP of 6 FiO2 50% ABG 7.4 . Discussed with bedside. 10/09: T-max 100.3 F. Sedated with propofol Versed fentanyl, O2 saturations 96%, ABG 7.4 6/37/68 on FiO2 50% and normal PEEP of 6. D/w bedside. Good UOP 10/10: Afebrile. Sedation wean this morning respirations increased significantly back on sedation. ABG 7.40 / FiO2 45% PEEP 6. Discussed with bedside O2 is significantly improving. 10/11: Afebrile. Agitated with sedation wean added Precedex. FiO2 40% PEEP 5. Will attempt sedation wean again today. D/w bedside. 10/12: Chest radiograph improved . ABG 7.4 35/95 on 40% FiO2 PEEP 5. Respiratory rate 28 with wean this morning and blood pressure elevated. Will try to wean again later today. Discussed with at bedside 10/13: Febrile 101.1 F overnight. Very agitated with attempted wean with increased BP ABG 7.471/38.4/71.2 on FiO2 40% PEEP 5. Respiratory blood and urine cultures for fever. Zosyn for coverage for possible VAP, f/u CXR 10/14: Afebrile. O2 saturations improved with furosemide. Urine output 2.7 L. K3.3 mag 1.7 WBC 7.6, Hb 9.3, platelets 158. Starting vent wean. Cultures pending, still on zosyn 10/13 Discussed with Pulmonology adding low-dose Haldol with vent weans will hold on propofol as QT sees around 470. Will maintain telemetry. As needed hydralazine and Vasotec for elevated blood pressure. Discussed with bedside CC time 34 minutes 10/15/2020: Patient seen and examined in the ICU with family present. Currently on BiPAP 16/16, 50% FiO2, and rate 20. Sedated with dexmedetomidine. On diltiazem drip. Amado to BSD. Rectal bag present. Triple lumen PICC in the right arm and right heel ulcer present. Chest x-ray from today showed stable diffuse bilateral opacities.Discussed with RN. Chart reviewed. 10/16/2020 Patient seen and examined in the ICU His is present Currently on Ventimask 50% FiO2 Chart reviewed Discussed with RN He is still quite ill Vitals/I&O Vitals/I&O: Vital Signs Date Time Temp Pulse Resp B/P (MAP) Pulse Ox O2 Delivery O2 Flow Rate FiO2 10/17/20 08:00 98.4 85 26 158/60 (92) 99 BiPAP/CPAP 98.4 10/16/20 16:40 15.0 I & O 10/16/20 10/16/20 10/17/20 15:00 23:00 07:00 Intake Total 100 ml 952 ml 415 ml Output Total 2425 ml 710 ml 440 ml Balance -2325 ml 242 ml -25 ml Physical Exam General: mild distress Heart: Other (Heart rate tachycardic and irregular) Lungs: Crackles Abdomen: Soft Extremities: No cyanosis Skin: No rashes, No significant lesion Labs Labs: Laboratory Tests Test 10/16/20 10:05 10/17/20 00:45 10/17/20 06:30 10/17/20 06:39 Heparin Anti-Xa Act, Unfractionated < 0.10 IU/mL (0.30-0.70) Glucose (Fingerstick) 151 mg/dL (70-99) 147 mg/dL (70-99) Sodium Level 145 mmol/L (136-145) Potassium Level 3.5 mmol/L (3.5-5.1) Chloride Level 106 mmol/L (98-107) Carbon Dioxide Level 30 mmol/L (21-32) Anion Gap 9 (6-14) Blood Urea Nitrogen 12 mg/dL (8-26) Creatinine 0.7 mg/dL (0.7-1.3) Estimated GFR (Cockcroft-Gault) 113.9 Glucose Level 157 mg/dL (70-99) Calcium Level 8.4 mg/dL (8.5-10.1) Magnesium Level 1.7 mg/dL (1.8-2.4) Assessment and Plan Assessmemt and Plan Problems Medical Problems: (1) Bilateral pulmonary infiltrates on CXR Status: Acute (2) Fever Status: Acute (3) Hypoxia Status: Acute (4) Lab test positive for detection of COVID-19 virus Status: Acute Acute COVID-19 pneumonia - s/p steroids, remdesivir Acute hypoxic respiratory failure - 2/2 COVID and ARDS Sepsis - due to above Bradycardia - unable to tolerate BB Diabetes mellitus type 2 HTN HLD CAD - 01/2012 with LESLEY to LAD (in-stent thrombosis) prompting CABG in the with GUZMAN to LAD. Acute on chronic combined systolic and diastolic CHF - lasix prn. Will echo and BNP h/o Cardiomyopathy - historically EF of 40-45%. Plan: 1) Continue ICU monitoring 2) Trying to wean O2 requirements down (we have been using as needed BiPAP and Ventimask etc.) 3) Continue IV sedation with dexmedetomidine 4) Continue IV diltiazem 5) Appreciate subspecialty consult: 6) SCD for DVT prophylaxis 7) Full code 8) Home medications Prognosis guarded CC time 31 minutes Comment Review of Relevant I have reviewed the following items lukasz (where applicable) has been applied. Medications: Current Medications Medications (Trade) Dose Ordered Sig/Khadar Route PRN Reason Start Time Stop Time Status Last Admin Dose Admin Magnesium Sulfate 50 ml @ 25 mls/hr 1X ONCE IV 10/16/20 09:45 10/16/20 11:44 DC 10/16/20 09:52 Enoxaparin Sodium (Lovenox 40mg Syringe) 40 mg Q24H SQ 10/16/20 13:00 10/16/20 14:16 Magnesium Sulfate 50 ml @ 25 mls/hr 1X ONCE IV 10/17/20 07:00 10/17/20 08:59 10/17/20 07:41 Justifications for Admission Other Justification MARLEY JIMENEZ III DO Oct 17, 2020 08:56
[2020-10-17 09:01] LABS: FIO2 ABG 40% BIPAP
--- NOTE | 2020-10-17 09:25 | PDOC ---
PULMONARY PROGRESS NOTES DATE: 10/17/20 TIME: 09:24 Subjective Extubated 959 Currently on Venturi mask BiPAP last evening Vitals Vital Signs Date Time Temp Pulse Resp B/P (MAP) Pulse Ox O2 Delivery O2 Flow Rate FiO2 10/17/20 09:00 88 32 156/61 (92) 98 Venturi Mask 10/17/20 08:40 15.0 10/17/20 08:00 98.4 98.4 General: Alert HEENT: Other Lungs: Crackles Cardiovascular: S1, S2 Abdomen: Soft, Non-tender Neuro Exam: Alert Extremities: Other Skin: Warm Labs Laboratory Tests Test 10/15/20 11:46 10/15/20 20:25 10/15/20 20:30 10/16/20 03:40 Glucose (Fingerstick) 121 mg/dL (70-99) 123 mg/dL (70-99) Heparin Anti-Xa Act, Unfractionated < 0.10 IU/mL (0.30-0.70) < 0.10 IU/mL (0.30-0.70) White Blood Count 5.9 x10^3/uL (4.0-11.0) Red Blood Count 3.67 x10^6/uL (4.30-5.70) Hemoglobin 10.9 g/dL (13.0-17.5) Hematocrit 32.2 % (39.0-53.0) Mean Corpuscular Volume 88 fL (79-100) Mean Corpuscular Hemoglobin 30 pg (25-35) Mean Corpuscular Hemoglobin Concent 34 g/dL (31-37) Red Cell Distribution Width 14.7 % (11.5-14.5) Platelet Count 230 x10^3/uL (140-400) Neutrophils (%) (Auto) 61 % (31-73) Lymphocytes (%) (Auto) 20 % (24-48) Monocytes (%) (Auto) 11 % (0-9) Eosinophils (%) (Auto) 7 % (0-3) Basophils (%) (Auto) 1 % (0-3) Neutrophils # (Auto) 3.6 x10^3/uL (1.8-7.7) Lymphocytes # (Auto) 1.2 x10^3/uL (1.0-4.8) Monocytes # (Auto) 0.6 x10^3/uL (0.0-1.1) Eosinophils # (Auto) 0.4 x10^3/uL (0.0-0.7) Basophils # (Auto) 0.1 x10^3/uL (0.0-0.2) Segmented Neutrophils % 43 % (35-66) Band Neutrophils % 5 % (0-9) Lymphocytes % 37 % (24-48) Atypical Lymphocytes % (Manual) 1 % (0-0) Monocytes % 5 % (0-10) Eosinophils % 5 % (0-5) Basophils % 1 % (0-3) Metamyelocytes % 2 % (0-0) Myelocytes % 1 % (0-0) Platelet Estimate Adequate (ADEQUATE) Large Platelets Occ Polychromasia Slight Anisocytosis Slight Sodium Level 144 mmol/L (136-145) Potassium Level 3.8 mmol/L (3.5-5.1) Chloride Level 106 mmol/L (98-107) Carbon Dioxide Level 31 mmol/L (21-32) Anion Gap 7 (6-14) Blood Urea Nitrogen 12 mg/dL (8-26) Creatinine 0.8 mg/dL (0.7-1.3) Estimated GFR (Cockcroft-Gault) 97.6 Glucose Level 129 mg/dL (70-99) Calcium Level 8.4 mg/dL (8.5-10.1) Phosphorus Level 4.3 mg/dL (2.6-4.7) Magnesium Level 1.7 mg/dL (1.8-2.4) Test 10/16/20 10:05 10/17/20 00:45 10/17/20 06:30 10/17/20 06:39 Heparin Anti-Xa Act, Unfractionated < 0.10 IU/mL (0.30-0.70) Glucose (Fingerstick) 151 mg/dL (70-99) 147 mg/dL (70-99) Sodium Level 145 mmol/L (136-145) Potassium Level 3.5 mmol/L (3.5-5.1) Chloride Level 106 mmol/L (98-107) Carbon Dioxide Level 30 mmol/L (21-32) Anion Gap 9 (6-14) Blood Urea Nitrogen 12 mg/dL (8-26) Creatinine 0.7 mg/dL (0.7-1.3) Estimated GFR (Cockcroft-Gault) 113.9 Glucose Level 157 mg/dL (70-99) Calcium Level 8.4 mg/dL (8.5-10.1) Magnesium Level 1.7 mg/dL (1.8-2.4) Test 10/17/20 08:30 O2 Saturation 98 % (92-99) Arterial Blood pH 7.44 (7.35-7.45) Arterial Blood pCO2 at Patient Temp 38 mmHg (35-46) Arterial Blood pO2 at Patient Temp 105 mmHg (65-108) Arterial Blood HCO3 25 mmol/L (21-28) Arterial Blood Base Excess 1 mmol/L (-3-3) FiO2 40% bipap Laboratory Tests Test 10/16/20 10:05 10/17/20 00:45 10/17/20 06:30 10/17/20 06:39 Heparin Anti-Xa Act, Unfractionated < 0.10 IU/mL (0.30-0.70) Glucose (Fingerstick) 151 mg/dL (70-99) 147 mg/dL (70-99) Sodium Level 145 mmol/L (136-145) Potassium Level 3.5 mmol/L (3.5-5.1) Chloride Level 106 mmol/L (98-107) Carbon Dioxide Level 30 mmol/L (21-32) Anion Gap 9 (6-14) Blood Urea Nitrogen 12 mg/dL (8-26) Creatinine 0.7 mg/dL (0.7-1.3) Estimated GFR (Cockcroft-Gault) 113.9 Glucose Level 157 mg/dL (70-99) Calcium Level 8.4 mg/dL (8.5-10.1) Magnesium Level 1.7 mg/dL (1.8-2.4) Test 10/17/20 08:30 O2 Saturation 98 % (92-99) Arterial Blood pH 7.44 (7.35-7.45) Arterial Blood pCO2 at Patient Temp 38 mmHg (35-46) Arterial Blood pO2 at Patient Temp 105 mmHg (65-108) Arterial Blood HCO3 25 mmol/L (21-28) Arterial Blood Base Excess 1 mmol/L (-3-3) FiO2 40% bipap Medications Active Scripts Medications Dose Route/Sig Max Daily Dose Days Date Category Icosapent Ethyl 1 Gm Capsule 2 Cap PO BID 09/20/20 Reported Metformin Hcl 1,000 Mg Tablet 1 Tab PO BID 09/20/20 Reported Rybelsus (Semaglutide) 7 Mg Tablet 1 Tab PO DAILY 09/20/20 Reported Farxiga (Dapagliflozin Propanediol) 10 Mg Tablet 1 Tab PO DAILY 09/20/20 Reported Trelegy Ellipta 100-62.5-25 (Fluticasone/Umeclidin/Vilanter) 1 Each Blst.w.dev 1 Puff INH DAILY 09/20/20 Reported Benzonatate 200 Mg Capsule 1 Cap PO TID PRN 09/20/20 Reported Montelukast Sodium 10 Mg Tablet 1 Tab PO DAILY 09/20/20 Reported Loratadine 10 Mg Tablet 1 Tab PO DAILY 09/20/20 Reported Fluticasone Propionate Nasal [place] (Fluticasone Propionate) 16 Gm [place].susp 1 Sprays NS BID 09/20/20 Reported Simvastatin 20 Mg Tablet 1 Tab PO QHS 11/20/15 Reported Impression . 1. Acute hypoxic respiratory failure secondary to COVID-19 viral pneumonia/acute lung injury.---intubated 09/23/20. Status post extubation 10/14 2. Abnormal chest x-ray consistent with mild infiltrates favoring COVID-19 viral pneumonia. 3. Leukopenia and thrombocytopenia due to COVID-19 viral pneumonia.--improved 4. No significant tobacco history. 5. Encephalopathy, multifactorial, prior to intubation 6. Delirium 7. Critical care myopathy 8. New onset A. fib with rapid ventricular response 10/15 Chest x-ray reviewed bilateral pulmonary infiltrates compatible with CHF Plan . Updated 10/17 Patient slowly improving, discussed with , no need for trach Continue Venturi mask BiPAP nightly Follow cardiology input If continues to do well transfer out of the ICU updated 10/16 Patient continues to be critically ill in the intensive care unit, respiratory status tenuous Currently on Venturi mask Continue as needed BiPAP IV Lasix Extubated 10/14 DVT GI prophylaxis Discussed with Total cumulative critical care time of approximately 33 to 35 minutes, reviewing the current documentation, chest x-ray, labs, formulating and impression and plan. updated 10/15 Patient in A. fib currently on IV Cardizem Extubated 10/14, currently on BiPAP holding his own Face mask not sealing very well, will proceed with shaving his whiskers IV Lasix Chest x-ray reviewed slightly worse Discussed case with at the bedside Total cumulative critical care time of 30 minutes with no overlap Labs reviewed, magnesium 1.8 CANDI MCCARTHY MD Oct 17, 2020 09:25
[2020-10-17] MEDS: fentaNYL PF VIAL 100 MCG/2 ML VIAL IVP PRN ×2 (11:55→21:40)
--- NOTE | 2020-10-17 12:21 | PDOC ---
JOEY PICHARDO MARGIN TRIMMER 10/17/20 1221: CARDIO Progress Notes Date and Time Date of Service 10/17/2020 Time of Evaluation 1200 Subjective Subjective: No Chest Pain, No Palpitations, Other (STill has SOA, Venti mask in place) Vitals Vitals Vital Signs Date Time Temp Pulse Resp B/P (MAP) Pulse Ox O2 Delivery O2 Flow Rate FiO2 10/17/20 11:55 32 97 Venturi Mask 15.0 10/17/20 11:00 77 172/67 (102) 10/17/20 08:00 98.4 98.4 Weight Weight [ ] Input and Output Intake and Output Intake and Output 10/17/20 07:00 Intake Total 1467 ml Output Total 3575 ml Balance -2108 ml Intake Oral 0 ml IV Total 1467 ml Output Urine Total 3575 ml # Bowel Movements 1 Laboratory Labs Laboratory Tests Test 10/17/20 00:45 10/17/20 06:30 10/17/20 06:39 10/17/20 08:30 Glucose (Fingerstick) 151 mg/dL (70-99) 147 mg/dL (70-99) Sodium Level 145 mmol/L (136-145) Potassium Level 3.5 mmol/L (3.5-5.1) Chloride Level 106 mmol/L (98-107) Carbon Dioxide Level 30 mmol/L (21-32) Anion Gap 9 (6-14) Blood Urea Nitrogen 12 mg/dL (8-26) Creatinine 0.7 mg/dL (0.7-1.3) Estimated GFR (Cockcroft-Gault) 113.9 Glucose Level 157 mg/dL (70-99) Calcium Level 8.4 mg/dL (8.5-10.1) Magnesium Level 1.7 mg/dL (1.8-2.4) O2 Saturation 98 % (92-99) Arterial Blood pH 7.44 (7.35-7.45) Arterial Blood pCO2 at Patient Temp 38 mmHg (35-46) Arterial Blood pO2 at Patient Temp 105 mmHg (65-108) Arterial Blood HCO3 25 mmol/L (21-28) Arterial Blood Base Excess 1 mmol/L (-3-3) FiO2 40% bipap Microbiology Micro Microbiology 10/13/20 Blood Culture - Preliminary, Resulted NO GROWTH AFTER 4 DAYS 10/13/20 Gram Stain Evaluation - Final, Complete 10/13/20 Respiratory Culture - Final, Complete 10/13/20 Urine Culture - Final, Complete 10/13/20 Antimicrobic Susceptibility - Final, Complete Physical Exam HEENT: Neck Supple W Full Motion Chest: Symmetric LUNGS: Other (rhonchus) Heart: RRR (SR) Abdomen: Soft N/T Extremities: Other (2+ bilateral LE pitting edema) Neurology: alert, oriented, follow commands Assessment Assessment 1. Acute hypoxic respiratory failure secondary to Covid pneumonia: Initially noted on 09/11/2020. PACS? s/p extubation earlier today and presently on BiPAP. Continue management per pulmonary team. 2. Atrial fibrillation with RVR during extubation attempt: Cardizem was held due to bradycardia lowest 40s. 3. Coronary artery disease s/p single-vessel coronary artery bypass surgery with GUZMAN to LAD. clinically stable 4. Hypertension: Labile 5. Hyperlipidemia 6. Diabetes mellitus type 2: Treat per IM 7. Hx of NICM: recovered. EF and WM nl per TTE 8. Moderate pulmonary HTN Recommendations 1. Continue pulmonary optimization. Bipap PRN 2. Need outpt sleep study 3. Lasix therapy. replace Mg 4. Restart ASA and statin when able to take PO 5. Remains NPO. Start on NTG paste and q6 IV lopressor. Monitor rhythm 6. MCOT Justicifation of Admission Dx: Justifications for Admission: Justification of Admission Dx: Yes NIKHIL CALDERA MD 10/18/20 1237: CARDIO Progress Notes Assessment Assessment Patient seen and examined 10/17/2020. Agree with PARAPROFESSIONAL AIDE TEACHER's assessment and plan. AF in the setting of extubation attempts, presently maintaining sinus rhythm. CAD status clinically stable. Plan for outpatient event monitor to assess AF burden to guide antiarrhythmic and anticoagulation therapy. JOEY PICHARDO APRN Oct 17, 2020 12:21 NIKHIL CALDERA MD Oct 18, 2020 12:37
[2020-10-17] MEDS: ENOXAPARIN 40 MG/0.4 ML SYRINGE. SQ SCH (14:03)
[2020-10-17] MEDS: NITROGLYCERIN OINT 1 GM PACKET. TP SCH ×2 (14:04→17:21)
[2020-10-17] MEDS: METOPROLOL IV PUSH 5 MG/5 ML VIAL. IVP SCH ×2 (14:05→17:20)
[2020-10-17] MEDS ORDERED: ONDANSETRON PF 4 MG/2 ML VIAL. ONE (14:08)
[2020-10-17] MEDS: ONDANSETRON PF 4 MG/2 ML VIAL. IVP PRN (14:54)
[2020-10-17] MEDS: SIMVASTATIN 20 MG TABLET PO SCH (21:00)
[2020-10-17] MEDS ORDERED: ADENOSINE 6 MG/2 ML VIAL. IV ONE ×2 (22:00→22:15)
[2020-10-18] VITALS (18 sets, daily range): BP systolic 101–175; BP diastolic 58–103
[2020-10-18] MEDS: PIPERACILLIN/TAZOBACTAM 3.375 GM in IV NORMAL SALINE 50ML 50 ML IV SCH ×5 (00:20→23:50)
[2020-10-18] MEDS ORDERED: DIGOXIN IV 500 MCG/2 ML AMPUL. IV ONE ×2 (00:30)
[2020-10-18] MEDS: INSULIN LISPRO 300 UNITS/3 ML VIAL. SQ SCH ×5 (00:36→23:50)
[2020-10-18] MEDS: IV NORMAL SALINE 1000ML BAG 1,000 ML IV SCH ×2 (06:00→12:51)
[2020-10-18] MEDS: NITROGLYCERIN OINT 1 GM PACKET. TP SCH ×5 (06:00→23:56)
[2020-10-18] MEDS: METOPROLOL IV PUSH 5 MG/5 ML VIAL. IVP SCH ×5 (06:00→23:50)
[2020-10-18] MEDS: DEXMEDETOMIDINE 400 MCG in IV NORMAL SALINE 100ML 96 ML IV PRN (06:02)
[2020-10-18 07:11] LABS: CALCIUM 8.1 mg/dL (8.5-10.1); CREATININE 0.7 mg/dL (0.7-1.3); GFR 113.9; MAGNESIUM 1.7 mg/dL (1.8-2.4); POTASSIUM 3.1 mmol/L (3.5-5.1)
[2020-10-18] MEDS: ASPIRIN CHEWABLE 81 MG TABLET. PO SCH (08:00)
[2020-10-18] MEDS ORDERED: MAGNESIUM SULFATE 2GM 50 ML IV ONE (08:15)
[2020-10-18] MEDS: MULTIVITAMINS,THERAPEUTIC 5 ML ORAL LIQUID. PEG SCH (09:00)
[2020-10-18] MEDS ORDERED: POTASSIUM CHLORIDE 20MEQ 100 ML IV ONE (09:00)
[2020-10-18] MEDS: ZINC SULFATE 220 MG CAPSULE. PO SCH (09:00)
[2020-10-18] MEDS: ASCORBIC ACID 1,000 MG TABLET PO SCH ×3 (09:00→17:51)
[2020-10-18] MEDS: SENNOSIDES/DOCUSATE 8.6/50MG TABLET. PO SCH ×2 (09:00→17:50)
[2020-10-18] MEDS: POTASSIUM CHLORIDE 20MEQ 100 ML IV SCH ×2 (09:22→11:01)
--- NOTE | 2020-10-18 09:27 | PDOC ---
PULMONARY PROGRESS NOTES DATE: 10/18/20 TIME: 09:27 Subjective Extubated 959 Patient sitting up in a chair today, able to lift his legs off to chair Used BiPAP last night Currently on nasal cannula Cough is weak Vitals Vital Signs Date Time Temp Pulse Resp B/P (MAP) Pulse Ox O2 Delivery O2 Flow Rate FiO2 10/18/20 07:21 98 BiPAP/CPAP 10/18/20 07:00 84 25 134/62 (86) 10/18/20 04:00 99.6 99.6 10/17/20 12:25 15.0 General: Alert HEENT: Other Lungs: Crackles Cardiovascular: S1, S2 Abdomen: Soft, Non-tender Neuro Exam: Alert Extremities: Other Skin: Warm Labs Laboratory Tests Test 10/16/20 10:05 10/17/20 00:45 10/17/20 06:30 10/17/20 06:39 Heparin Anti-Xa Act, Unfractionated < 0.10 IU/mL (0.30-0.70) Glucose (Fingerstick) 151 mg/dL (70-99) 147 mg/dL (70-99) Sodium Level 145 mmol/L (136-145) Potassium Level 3.5 mmol/L (3.5-5.1) Chloride Level 106 mmol/L (98-107) Carbon Dioxide Level 30 mmol/L (21-32) Anion Gap 9 (6-14) Blood Urea Nitrogen 12 mg/dL (8-26) Creatinine 0.7 mg/dL (0.7-1.3) Estimated GFR (Cockcroft-Gault) 113.9 Glucose Level 157 mg/dL (70-99) Calcium Level 8.4 mg/dL (8.5-10.1) Magnesium Level 1.7 mg/dL (1.8-2.4) Test 10/17/20 08:30 10/18/20 00:31 10/18/20 06:35 10/18/20 06:44 O2 Saturation 98 % (92-99) Arterial Blood pH 7.44 (7.35-7.45) Arterial Blood pCO2 at Patient Temp 38 mmHg (35-46) Arterial Blood pO2 at Patient Temp 105 mmHg (65-108) Arterial Blood HCO3 25 mmol/L (21-28) Arterial Blood Base Excess 1 mmol/L (-3-3) FiO2 40% bipap Glucose (Fingerstick) 184 mg/dL (70-99) 160 mg/dL (70-99) Sodium Level 147 mmol/L (136-145) Potassium Level 3.1 mmol/L (3.5-5.1) Chloride Level 105 mmol/L (98-107) Carbon Dioxide Level 28 mmol/L (21-32) Anion Gap 14 (6-14) Blood Urea Nitrogen 10 mg/dL (8-26) Creatinine 0.7 mg/dL (0.7-1.3) Estimated GFR (Cockcroft-Gault) 113.9 Glucose Level 159 mg/dL (70-99) Calcium Level 8.1 mg/dL (8.5-10.1) Magnesium Level 1.7 mg/dL (1.8-2.4) Laboratory Tests Test 10/18/20 00:31 10/18/20 06:35 10/18/20 06:44 Glucose (Fingerstick) 184 mg/dL (70-99) 160 mg/dL (70-99) Sodium Level 147 mmol/L (136-145) Potassium Level 3.1 mmol/L (3.5-5.1) Chloride Level 105 mmol/L (98-107) Carbon Dioxide Level 28 mmol/L (21-32) Anion Gap 14 (6-14) Blood Urea Nitrogen 10 mg/dL (8-26) Creatinine 0.7 mg/dL (0.7-1.3) Estimated GFR (Cockcroft-Gault) 113.9 Glucose Level 159 mg/dL (70-99) Calcium Level 8.1 mg/dL (8.5-10.1) Magnesium Level 1.7 mg/dL (1.8-2.4) Medications Active Scripts Medications Dose Route/Sig Max Daily Dose Days Date Category Icosapent Ethyl 1 Gm Capsule 2 Cap PO BID 09/20/20 Reported Metformin Hcl 1,000 Mg Tablet 1 Tab PO BID 09/20/20 Reported Rybelsus (Semaglutide) 7 Mg Tablet 1 Tab PO DAILY 09/20/20 Reported Farxiga (Dapagliflozin Propanediol) 10 Mg Tablet 1 Tab PO DAILY 09/20/20 Reported Trelegy Ellipta 100-62.5-25 (Fluticasone/Umeclidin/Vilanter) 1 Each Blst.w.dev 1 Puff INH DAILY 09/20/20 Reported Benzonatate 200 Mg Capsule 1 Cap PO TID PRN 09/20/20 Reported Montelukast Sodium 10 Mg Tablet 1 Tab PO DAILY 09/20/20 Reported Loratadine 10 Mg Tablet 1 Tab PO DAILY 09/20/20 Reported Fluticasone Propionate Nasal [place] (Fluticasone Propionate) 16 Gm [place].susp 1 Sprays NS BID 09/20/20 Reported Simvastatin 20 Mg Tablet 1 Tab PO QHS 11/20/15 Reported Impression . 1. Acute hypoxic respiratory failure secondary to COVID-19 viral pneumonia/acute lung injury.---intubated 09/23/20. Status post extubation 10/14 2. Abnormal chest x-ray consistent with mild infiltrates favoring COVID-19 viral pneumonia. 3. Leukopenia and thrombocytopenia due to COVID-19 viral pneumonia.--improved 4. No significant tobacco history. 5. Encephalopathy, multifactorial, prior to intubation 6. Delirium 7. Critical care myopathy 8. New onset A. fib with rapid ventricular response 10/15 Chest x-ray reviewed bilateral pulmonary infiltrates compatible with CHF Plan . Updated 10/18 Cussed with RN, transfer out of the intensive care unit Continue nightly BiPAP Monitor x-ray and labs Replace potassium Chest x-ray from 10/17 reviewed no significant change in bilateral opacities Above discussed with at the bedside PT and OT Nutritional support updated 10/17 Patient slowly improving, discussed with , no need for trach Continue Venturi mask BiPAP nightly Follow cardiology input If continues to do well transfer out of the ICU updated 10/16 Patient continues to be critically ill in the intensive care unit, respiratory status tenuous Currently on Venturi mask Continue as needed BiPAP IV Lasix Extubated 10/14 DVT GI prophylaxis Discussed with Total cumulative critical care time of approximately 33 to 35 minutes, reviewing the current documentation, chest x-ray, labs, formulating and impression and plan. updated 10/15 Patient in A. fib currently on IV Cardizem Extubated 10/14, currently on BiPAP holding his own Face mask not sealing very well, will proceed with shaving his whiskers IV Lasix Chest x-ray reviewed slightly worse Discussed case with at the bedside Total cumulative critical care time of 30 minutes with no overlap Labs reviewed, magnesium 1.8 CNADI MCCARTHY MD Oct 18, 2020 09:27
[2020-10-18] MEDS: FUROSEMIDE 40 MG/4 ML VIAL. IVP SCH (09:29)
[2020-10-18] MEDS: NYSTATIN TOPICAL POWDER 15GM BOTTLE. TP SCH ×2 (09:35→21:16)
[2020-10-18] MEDS: INSULIN GLARGINE SYRINGE. SQ SCH ×2 (09:35→21:20)
--- NOTE | 2020-10-18 09:38 | PDOC ---
JOEY PICHARDO GEOTECHNICIAN 10/18/20 0938: CARDIO Progress Notes Date and Time Date of Service 10/18/2020 Time of Evaluation 0920 Subjective Subjective: No Chest Pain, No shortness of breath, No Palpitations Vitals Vitals Vital Signs Date Time Temp Pulse Resp B/P (MAP) Pulse Ox O2 Delivery O2 Flow Rate FiO2 10/18/20 07:21 98 BiPAP/CPAP 10/18/20 07:00 84 25 134/62 (86) 10/18/20 04:00 99.6 99.6 10/17/20 12:25 15.0 Weight Weight [ ] Input and Output Intake and Output Intake and Output 10/18/20 07:00 Intake Total 150 ml Output Total 3175 ml Balance -3025 ml IV Total 150 ml Output Urine Total 3175 ml # Bowel Movements 1 Laboratory Labs Laboratory Tests Test 10/18/20 00:31 10/18/20 06:35 10/18/20 06:44 Glucose (Fingerstick) 184 mg/dL (70-99) 160 mg/dL (70-99) Sodium Level 147 mmol/L (136-145) Potassium Level 3.1 mmol/L (3.5-5.1) Chloride Level 105 mmol/L (98-107) Carbon Dioxide Level 28 mmol/L (21-32) Anion Gap 14 (6-14) Blood Urea Nitrogen 10 mg/dL (8-26) Creatinine 0.7 mg/dL (0.7-1.3) Estimated GFR (Cockcroft-Gault) 113.9 Glucose Level 159 mg/dL (70-99) Calcium Level 8.1 mg/dL (8.5-10.1) Magnesium Level 1.7 mg/dL (1.8-2.4) Microbiology Micro Microbiology 10/13/20 Blood Culture - Preliminary, Resulted NO GROWTH AFTER 4 DAYS 10/13/20 Gram Stain Evaluation - Final, Complete 10/13/20 Respiratory Culture - Final, Complete 10/13/20 Urine Culture - Final, Complete 10/13/20 Antimicrobic Susceptibility - Final, Complete Physical Exam HEENT: Neck Supple W Full Motion Chest: Symmetric LUNGS: Other (DIMINISHED, NOW ON nc) Heart: RRR (SR) Abdomen: Soft N/T Extremities: Other (2+ bilateral LE pitting edema) Neurology: alert, follow commands, confused Assessment Assessment 1. Acute hypoxic respiratory failure secondary to Covid pneumonia: Initially noted on 09/11/2020. PACS? s/p extubation. Continue management per pulmonary team. 2. Atrial fibrillation with RVR during extubation attempt: back to SR 3. Coronary artery disease s/p single-vessel coronary artery bypass surgery with GUZMAN to LAD. clinically stable 4. Hypertension: better controlled 5. Hyperlipidemia 6. Diabetes mellitus type 2: Treat per IM 7. Hx of NICM: recovered. EF and WM nl per TTE 8. Moderate pulmonary HTN 9. Encephalopathy Recommendations 1. Continue pulmonary optimization. Bipap PRN 2. Need outpt sleep study 3. Lasix therapy. replace Mg and K 4. Restart ASA and statin when able to take PO 5. Remains NPO. NTG paste. Change BB to PRN. Continue cardizem and monitor for bradycardia. 6. MCOT Justicifation of Admission Dx: Justifications for Admission: Justification of Admission Dx: Yes NIKHIL CALDERA MD 10/19/20 1256: CARDIO Progress Notes Assessment Assessment Patient seen and examined 10/18/2020. Agree with VIDEOGRAPHER's assessment and plan. AF in the setting of extubation attempts, converted to sinus rhythm. He had AF RVR last night but back in SR again. We will continue to monitor and consider amiodarone if he continues to have AF paroxysms CAD status clinically stable. Plan for outpatient event monitor to assess AF burden to guide antiarrhythmic and anticoagulation therapy. JOEY PICHARDO APRN Oct 18, 2020 09:38 NIKHIL CALDERA MD Oct 19, 2020 12:56
[2020-10-18] MEDS: PANTOPRAZOLE IV PUSH 40 MG VIAL. IVP SCH (09:47)
--- NOTE | 2020-10-18 11:25 | PDOC ---
[employer] PROGRESS NOTE Date of Service DOS: DATE: 10/18/20 TIME: 11:23 Chief Complaint Chief Complaint A/P: Acute COVID-19 pneumonia - s/p steroids, remdesivir Acute hypoxic respiratory failure - 2/2 COVID and ARDS Sepsis - due to above Bradycardia - unable to tolerate BB Diabetes mellitus type 2 HTN HLD CAD - 01/2012 with LESLEY to LAD (in-stent thrombosis) prompting CABG in the with GUZMAN to LAD. Acute on chronic combined systolic and diastolic CHF - lasix prn. Will echo and BNP h/o Cardiomyopathy - historically EF of 40-45%. FEN - NGT feeds PPX - Lovenox for DVT prophylaxis, Protonix GI prophylaxis Full code Dispo - ICU Discussed with RN and SW Disposition patient management as above Surrogate decision maker is the Jenni Morrissey History of Present Illness History of Present Illness 10/18/2020 patient seen and examined in the ICU his Jenni is present she has good support for him currently on nasal cannula oxygen at 5 L Amado to bedside drainage rectal tube in place discussed with RN chart reviewed 10/17/2020 Patient seen and examined in the ICU His is present Currently back on BiPAP 25/07 with 40% FiO2 O2 sat is 99% I reviewed the chest x-rays and labs with his Chart reviewed Discussed with RN He remains critically ill Mr Morrissey is a 65-year-old white male w/ PMHx HTN, DM2, HLD, GERD, CAD s/p CABG 2011 presented to ED due to worsening cough and shortness of breath; patient also experiencing vomiting and diarrhea. Patient was recently diagnosed with COVID-19 on September 11 and has been doing well since that until a few days prior to arrival when his symptoms acutely worsened this morning. Has not received Covid vaccine. Close contacts at home have very similar symptoms. 09/21: Patient saturating 98% on 10 L nasal cannula. Increasing O2 requirements may consider pulmonology consult. On remdesivir, steroids 09/22: Patient saturating 91% on 10 L nasal cannula. Shortness of breath with ambulation. Combivent inhaler ordered today. 09/23: Patient is requiring increasing O2 requirements. Saturating 88% on 15 L nonrebreather and also nasal cannula. ICU transfer and intubated. 09/24: In ICU on vent. Afebrile, currently breathing FiO2 100%, PEEP 10. Final dose of remdesivir today. 09/25: Afebrile. On vent with FiO2 80%, PEEP 9. He has completed course of remdesivir. IV steroids for total dose 10 days and IV Zosyn. 09/26: Afebrile. Remains on vent with FiO2 70%, PEEP 8. Completed remdesivir. Continue prophylactic IV Zosyn. 09/27: No acute events overnight. Afebrile. On vent with FiO2 70%, PEEP 8. Cont IV antibiotics and steroids, with taper. Completed remdesivir. 09/28: Afebrile. On vent with FiO2 90%, PEEP 8. Completed remdesivir. Continue IV antibiotics. KUB with good OGT placement 09/29: Afebrile. On vent with increased oxygen requirement, FiO2 100%, PEEP 8. CXR increasing bilateral airspace opacities 09/30: On vent with FiO2 90%, PEEP 8. Afebrile. Steroids have been increased to dexamethasone 20 mg for 5 days, 10 mg for 5 days 10/01: No acute events overnight. Patient saturating 97% on vent settings of 22/500/80/8. Currently sedated and intubated. 10/02: Patient saturating 95% on vent settings of 22/500/75/7. ABG expected at 7.4 //28. Currently intubated and sedated. 10/03: No acute events overnight. Patient saturating 94% on vent settings of 22/500/75/7. Improved sugar control. 10/04: Saturating 100% on vent settings of 22/500/65/7. Last ABG show pH of 7.5 //28. Adjustments to vent settings by pulmonology. 10/05: No acute events overnight. Patient saturating 96% on vent settings of 20/500/65/7. Discussed prognosis with family. 10/06: No acute events overnight. Patient saturating 95% on vent settings of 20/500/50/6. No other concerns from nursing at this time. 10/07: No acute events overnight. Patient saturating 96% on vent settings of 20/500/50/6. T-max of 100.3. 10/08: Afebrile overnight. Sedated with propofol Versed and fentanyl PEEP of 6 FiO2 50% ABG 7.4 . Discussed with bedside. 10/09: T-max 100.3 F. Sedated with propofol Versed fentanyl, O2 saturations 96%, ABG 7.4 on FiO2 50% and normal PEEP of 6. D/w bedside. Good UOP 10/10: Afebrile. Sedation wean this morning respirations increased significantly back on sedation. ABG 7.40 / FiO2 45% PEEP 6. Discussed with bedside O2 is significantly improving. 10/11: Afebrile. Agitated with sedation wean added Precedex. FiO2 40% PEEP 5. Will attempt sedation wean again today. D/w bedside. 10/12: Chest radiograph improved . ABG 7.4 / on 40% FiO2 PEEP 5. Respiratory rate 28 with wean this morning and blood pressure elevated. Will try to wean again later today. Discussed with at bedside 10/13: Febrile 101.1 F overnight. Very agitated with attempted wean with increased BP ABG 7.471/38.4/71.2 on FiO2 40% PEEP 5. Respiratory blood and urine cultures for fever. Zosyn for coverage for possible VAP, f/u CXR 10/14: Afebrile. O2 saturations improved with furosemide. Urine output 2.7 L. K3.3 mag 1.7 WBC 7.6, Hb 9.3, platelets 158. Starting vent wean. Cultures pending, still on zosyn 10/13 Discussed with Pulmonology adding low-dose Haldol with vent weans will hold on propofol as QT sees around 470. Will maintain telemetry. As needed hydralazine and Vasotec for elevated blood pressure. Discussed with bedside CC time 34 minutes 10/15/2020: Patient seen and examined in the ICU with family present. Currently on BiPAP 16/16, 50% FiO2, and rate 20. Sedated with dexmedetomidine. On diltiazem drip. Amado to BSD. Rectal bag present. Triple lumen PICC in the right arm and right heel ulcer present. Chest x-ray from today showed stable diffuse bilateral opacities.Discussed with RN. Chart reviewed. 10/16/2020 Patient seen and examined in the ICU His is present Currently on Ventimask 50% FiO2 Chart reviewed Discussed with RN He is still quite ill Vitals/I&O Vitals/I&O: Vital Signs Date Time Temp Pulse Resp B/P (MAP) Pulse Ox O2 Delivery O2 Flow Rate FiO2 10/18/20 07:21 98 BiPAP/CPAP 10/18/20 07:00 84 25 134/62 (86) 10/18/20 04:00 99.6 99.6 10/17/20 12:25 15.0 I & O 10/17/20 10/17/20 10/18/20 15:00 23:00 07:00 Intake Total 100 ml 50 ml Output Total 2725 ml 450 ml Balance -2625 ml -400 ml Physical Exam General: mild distress, Other (Pleasantly confused encephalopathic) Heart: Other (Heart rate tachycardic and irregular) Lungs: Crackles Abdomen: Soft Extremities: No cyanosis Skin: No rashes, No significant lesion Labs Labs: Laboratory Tests Test 10/18/20 00:31 10/18/20 06:35 10/18/20 06:44 10/18/20 09:34 Glucose (Fingerstick) 184 mg/dL (70-99) 160 mg/dL (70-99) 165 mg/dL (70-99) Sodium Level 147 mmol/L (136-145) Potassium Level 3.1 mmol/L (3.5-5.1) Chloride Level 105 mmol/L (98-107) Carbon Dioxide Level 28 mmol/L (21-32) Anion Gap 14 (6-14) Blood Urea Nitrogen 10 mg/dL (8-26) Creatinine 0.7 mg/dL (0.7-1.3) Estimated GFR (Cockcroft-Gault) 113.9 Glucose Level 159 mg/dL (70-99) Calcium Level 8.1 mg/dL (8.5-10.1) Magnesium Level 1.7 mg/dL (1.8-2.4) Assessment and Plan Assessmemt and Plan Problems Medical Problems: (1) Bilateral pulmonary infiltrates on CXR Status: Acute (2) Fever Status: Acute (3) Hypoxia Status: Acute (4) Lab test positive for detection of COVID-19 virus Status: Acute Acute COVID-19 pneumonia - s/p steroids, remdesivir Acute hypoxic respiratory failure - 2/2 COVID and ARDS Sepsis - due to above Bradycardia - unable to tolerate BB Diabetes mellitus type 2 HTN HLD CAD - 01/2012 with LESLEY to LAD (in-stent thrombosis) prompting CABG in the with GUZMAN to LAD. Acute on chronic combined systolic and diastolic CHF - lasix prn. Will echo and BNP h/o Cardiomyopathy - historically EF of 40-45%. Plan: 1) Continue ICU monitoring 2) continue O2 per nasal cannula if possible 3) trend labs 4) Continue IV diltiazem 5) Appreciate subspecialty consult: 6) SCD for DVT prophylaxis 7) Full code 8) Home medications prognosis guarded but seems to be improving over the past 24 hours we will consider transfer to the floor if okay with subspecialist Comment Review of Relevant I have reviewed the following items lukasz (where applicable) has been applied. Medications: Current Medications Medications (Trade) Dose Ordered Sig/Khadar Route PRN Reason Start Time Stop Time Status Last Admin Dose Admin Metoprolol Tartrate (Lopressor Vial) 5 mg Q6HRS IVP 10/17/20 13:00 10/17/20 17:20 Nitroglycerin (Nitro-Bid Oint) 1 inch Q6HRS TP 10/17/20 13:00 10/17/20 17:21 Furosemide (Lasix) 40 mg DAILY IVP 10/18/20 09:00 10/18/20 09:29 Ondansetron HCl (Zofran) 4 mg PRN Q6HRS PRN IVP NAUSEA/VOMITING 10/17/20 14:45 10/17/20 14:54 Adenosine (Adenocard) 6 mg 1X ONCE IV 10/17/20 22:00 10/17/20 22:01 DC 10/17/20 22:00 Adenosine (Adenocard) 12 mg 1X ONCE IV 10/17/20 22:15 10/17/20 22:16 DC 10/17/20 22:15 Diltiazem HCl 125 mg/Sodium Chloride 125 ml @ 5 mls/hr CONT PRN IV SEE I/O RECORD 10/17/20 21:45 10/18/20 06:01 Diltiazem HCl (Cardizem Iv Push) 10 mg 1X ONCE IVP 10/17/20 22:00 10/17/20 22:01 DC 10/17/20 22:05 Digoxin (Lanoxin) 250 mcg 1X ONCE IV 10/18/20 00:00 10/18/20 00:01 DC 10/17/20 23:53 Digoxin (Lanoxin) 250 mcg 1X ONCE IV 10/18/20 00:30 10/18/20 00:31 DC 10/18/20 00:46 Sodium Chloride 1,000 ml @ 80 mls/hr [id number] IV 10/18/20 06:00 10/18/20 06:00 Magnesium Sulfate 50 ml @ 25 mls/hr 1X ONCE IV 10/18/20 08:15 10/18/20 10:14 DC 10/18/20 11:02 Potassium Chloride/Water 100 ml @ 50 mls/hr Q2H IV 10/18/20 09:00 10/18/20 12:59 10/18/20 11:01 Justifications for Admission Other Justification MARLEY JIMENEZ III DO Oct 18, 2020 11:25
--- NOTE | 2020-10-18 11:38 | NUR ---
SS following up with discharge planning. SS reviewed pt chart and discussed with pt RN. Pt is currently requiring oxygen at five liters nasal canula and BIPAP HS. COVID19 recovered. Pt on Cardizem drip. Pt on IV Zosyn and IV Lasix. PT/OT recommended acute rehabilitation. SS met with pt and spouse in room to discuss discharge planning and acute rehabilitation. Pt and spouse agreeable to inpatient rehabilitation and requested list of facilities and contact information. SS provided facility options to pt and pt's spouse and they reported that they would discuss and notify SS of facility preferences. Pt transferring to room 654 today. SS will continue to follow for discharge planning.
[2020-10-18] MEDS: ENOXAPARIN 40 MG/0.4 ML SYRINGE. SQ SCH (12:53)
[2020-10-18] MEDS ORDERED: AMIODARONE 150 MG in IV DEXTROSE 5% 100ML 100 ML IV ONE (13:30)
[2020-10-18] MEDS: AMIODARONE 450 MG in IV DEXTROSE 5% 250 ML IV PRN ×2 (14:54→23:01)
[2020-10-18] MEDS: hydrALAZINE 20 MG/ML VIAL. IVP PRN (17:33)
[2020-10-18] MEDS: SIMVASTATIN 20 MG TABLET PO SCH (17:51)
--- NOTE | 2020-10-18 19:15 | NUR ---
Pt in bed assessment completed vss pt at bedside poc explained pt denied pain at time of assessment, pt is Alert with forgetfulness pt also request water explained poc will resume care and continue to monitor pt.
[2020-10-18] MEDS ORDERED: ACETAMINOPHEN 650 MG SUPP.RECT. PR PRN (23:45)
[2020-10-19] VITALS (14 sets, daily range): BP systolic 140–192; BP diastolic 55–71
[2020-10-19] MEDS: IV NORMAL SALINE 1000ML BAG 1,000 ML IV SCH ×2 (01:48→17:46)
[2020-10-19] MEDS: METOPROLOL IV PUSH 5 MG/5 ML VIAL. IVP SCH (06:00)
[2020-10-19] MEDS: PIPERACILLIN/TAZOBACTAM 3.375 GM in IV NORMAL SALINE 50ML 50 ML IV SCH ×3 (06:12→18:40)
[2020-10-19] MEDS: INSULIN LISPRO 300 UNITS/3 ML VIAL. SQ SCH ×3 (06:12→17:27)
[2020-10-19] MEDS: NITROGLYCERIN OINT 1 GM PACKET. TP SCH ×3 (06:14→17:37)
[2020-10-19] MEDS: ASPIRIN CHEWABLE 81 MG TABLET. PO SCH (08:00)
--- NOTE | 2020-10-19 08:30 | PDOC ---
PULMONARY PROGRESS NOTES DATE: 10/19/20 TIME: 08:28 Subjective Extubated 10/14 Appears very weak. Used BiPAP last night Currently on nasal cannula Cough is weak Vitals Vital Signs Date Time Temp Pulse Resp B/P (MAP) Pulse Ox O2 Delivery O2 Flow Rate FiO2 10/19/20 07:21 98.9 73 18 186/64 (104) 93 Nasal Cannula 5.0 98.9 General: Alert, No acute distress HEENT: Other Lungs: Crackles Cardiovascular: S1, S2 Abdomen: Soft, Non-tender Neuro Exam: Alert Extremities: Other Skin: Warm Labs Laboratory Tests Test 10/17/20 08:30 10/18/20 00:31 10/18/20 06:35 10/18/20 06:44 O2 Saturation 98 % (92-99) Arterial Blood pH 7.44 (7.35-7.45) Arterial Blood pCO2 at Patient Temp 38 mmHg (35-46) Arterial Blood pO2 at Patient Temp 105 mmHg (65-108) Arterial Blood HCO3 25 mmol/L (21-28) Arterial Blood Base Excess 1 mmol/L (-3-3) FiO2 40% bipap Glucose (Fingerstick) 184 mg/dL (70-99) 160 mg/dL (70-99) Sodium Level 147 mmol/L (136-145) Potassium Level 3.1 mmol/L (3.5-5.1) Chloride Level 105 mmol/L (98-107) Carbon Dioxide Level 28 mmol/L (21-32) Anion Gap 14 (6-14) Blood Urea Nitrogen 10 mg/dL (8-26) Creatinine 0.7 mg/dL (0.7-1.3) Estimated GFR (Cockcroft-Gault) 113.9 Glucose Level 159 mg/dL (70-99) Calcium Level 8.1 mg/dL (8.5-10.1) Magnesium Level 1.7 mg/dL (1.8-2.4) Test 10/18/20 09:34 10/18/20 17:10 10/18/20 21:18 10/18/20 23:48 Glucose (Fingerstick) 165 mg/dL (70-99) 167 mg/dL (70-99) 186 mg/dL (70-99) 158 mg/dL (70-99) Test 10/19/20 06:11 Glucose (Fingerstick) 137 mg/dL (70-99) Laboratory Tests Test 10/18/20 09:34 10/18/20 17:10 10/18/20 21:18 10/18/20 23:48 Glucose (Fingerstick) 165 mg/dL (70-99) 167 mg/dL (70-99) 186 mg/dL (70-99) 158 mg/dL (70-99) Test 10/19/20 06:11 Glucose (Fingerstick) 137 mg/dL (70-99) Medications Active Scripts Medications Dose Route/Sig Max Daily Dose Days Date Category Icosapent Ethyl 1 Gm Capsule 2 Cap PO BID 09/20/20 Reported Metformin Hcl 1,000 Mg Tablet 1 Tab PO BID 09/20/20 Reported Rybelsus (Semaglutide) 7 Mg Tablet 1 Tab PO DAILY 09/20/20 Reported Farxiga (Dapagliflozin Propanediol) 10 Mg Tablet 1 Tab PO DAILY 09/20/20 Reported Trelegy Ellipta 100-62.5-25 (Fluticasone/Umeclidin/Vilanter) 1 Each Blst.w.dev 1 Puff INH DAILY 09/20/20 Reported Benzonatate 200 Mg Capsule 1 Cap PO TID PRN 09/20/20 Reported Montelukast Sodium 10 Mg Tablet 1 Tab PO DAILY 09/20/20 Reported Loratadine 10 Mg Tablet 1 Tab PO DAILY 09/20/20 Reported Fluticasone Propionate Nasal [place] (Fluticasone Propionate) 16 Gm [place].susp 1 Sprays NS BID 09/20/20 Reported Simvastatin 20 Mg Tablet 1 Tab PO QHS 11/20/15 Reported Impression . 1. Acute hypoxic respiratory failure secondary to COVID-19 viral pneumonia/acute lung injury.---intubated 09/23/20. Status post extubation 10/14 2. Abnormal chest x-ray consistent with mild infiltrates favoring COVID-19 viral pneumonia. 3. Leukopenia and thrombocytopenia due to COVID-19 viral pneumonia.--improved 4. No significant tobacco history. 5. Encephalopathy, multifactorial, prior to intubation 6. Delirium 7. Critical care myopathy 8. New onset A. fib with rapid ventricular response 10/15. Currently on Cardizem drip and also on amiodarone Chest x-ray reviewed bilateral pulmonary infiltrates compatible with CHF Plan . Updated 10/19 Discussed with RN and patient's at the bedside. Patient is still very weak. He will take a long time to recover. He will be a good candidate for LTAC Continue nightly BiPAP Monitor x-ray and labs Chest x-ray from 10/17 reviewed no significant change in bilateral opacities Above discussed with at the bedside PT and OT Nutritional support. Follow speech recommendations. Is still not able to eat p.o. Updated 10/18 Cussed with RN, transfer out of the intensive care unit Continue nightly BiPAP Monitor x-ray and labs Replace potassium Chest x-ray from 10/17 reviewed no significant change in bilateral opacities Above discussed with at the bedside PT and OT Nutritional support updated 10/17 Patient slowly improving, discussed with , no need for trach Continue Venturi mask BiPAP nightly Follow cardiology input If continues to do well transfer out of the ICU updated 10/16 Patient continues to be critically ill in the intensive care unit, respiratory status tenuous Currently on Venturi mask Continue as needed BiPAP IV Lasix Extubated 10/14 DVT GI prophylaxis Discussed with Total cumulative critical care time of approximately 33 to 35 minutes, reviewing the current documentation, chest x-ray, labs, formulating and impression and plan. updated 10/15 Patient in A. fib currently on IV Cardizem Extubated 10/14, currently on BiPAP holding his own Face mask not sealing very well, will proceed with shaving his whiskers IV Lasix Chest x-ray reviewed slightly worse Discussed case with at the bedside Total cumulative critical care time of 30 minutes with no overlap Labs reviewed, magnesium 1.8 ERIC GOTTLIEB MD Oct 19, 2020 08:30
[2020-10-19] MEDS: PANTOPRAZOLE IV PUSH 40 MG VIAL. IVP SCH (08:36)
[2020-10-19] MEDS: FUROSEMIDE 40 MG/4 ML VIAL. IVP SCH (08:37)
[2020-10-19] MEDS: INSULIN GLARGINE SYRINGE. SQ SCH ×2 (08:46→19:59)
[2020-10-19] MEDS: NYSTATIN TOPICAL POWDER 15GM BOTTLE. TP SCH ×2 (08:46→19:57)
[2020-10-19] MEDS: MULTIVITAMINS,THERAPEUTIC 5 ML ORAL LIQUID. PEG SCH (08:47)
[2020-10-19] MEDS: SENNOSIDES/DOCUSATE 8.6/50MG TABLET. PO SCH ×2 (08:47→19:59)
[2020-10-19] MEDS: ASCORBIC ACID 1,000 MG TABLET PO SCH ×3 (08:47→19:59)
[2020-10-19] MEDS: ZINC SULFATE 220 MG CAPSULE. PO SCH (08:47)
[2020-10-19 09:06] LABS: CALCIUM 8.2 mg/dL (8.5-10.1); CREATININE 0.7 mg/dL (0.7-1.3); GFR 113.9; MAGNESIUM 1.7 mg/dL (1.8-2.4); PHOSPHORUS 2.7 mg/dL (2.6-4.7)
[2020-10-19 09:09] LABS: POTASSIUM 2.7 mmol/L (3.5-5.1)
[2020-10-19] MEDS: AMIODARONE 450 MG in IV DEXTROSE 5% 250 ML IV PRN (09:47)
[2020-10-19] MEDS: ENOXAPARIN 40 MG/0.4 ML SYRINGE. SQ SCH (12:38)
[2020-10-19] MEDS ORDERED: METOPROLOL IV PUSH 5 MG/5 ML VIAL. IVP PRN (12:45)
--- NOTE | 2020-10-19 12:45 | PDOC ---
JOEY PICHARDO NET MANAGER 10/19/20 1244: CARDIO Progress Notes Date and Time Date of Service 10/19/2020 Time of Evaluation 1210 Subjective Subjective: No Chest Pain, No shortness of breath, No Palpitations Vitals Vitals Vital Signs Date Time Temp Pulse Resp B/P (MAP) Pulse Ox O2 Delivery O2 Flow Rate FiO2 10/19/20 07:50 Nasal Cannula 5.0 10/19/20 07:21 98.9 73 18 186/64 (104) 93 98.9 Weight Weight [ ] Input and Output Intake and Output Intake and Output 10/19/20 07:00 Intake Total 250 ml Output Total 1425 ml Balance -1175 ml Intake Oral 0 ml IV Total 250 ml Output Urine Total 1425 ml Laboratory Labs Laboratory Tests Test 10/18/20 17:10 10/18/20 21:18 10/18/20 23:48 10/19/20 06:11 Glucose (Fingerstick) 167 mg/dL (70-99) 186 mg/dL (70-99) 158 mg/dL (70-99) 137 mg/dL (70-99) Test 10/19/20 08:30 10/19/20 12:15 Sodium Level 146 mmol/L (136-145) Potassium Level 2.7 mmol/L (3.5-5.1) Chloride Level 105 mmol/L (98-107) Carbon Dioxide Level 31 mmol/L (21-32) Anion Gap 10 (6-14) Blood Urea Nitrogen 7 mg/dL (8-26) Creatinine 0.7 mg/dL (0.7-1.3) Estimated GFR (Cockcroft-Gault) 113.9 Glucose Level 173 mg/dL (70-99) Calcium Level 8.2 mg/dL (8.5-10.1) Phosphorus Level 2.7 mg/dL (2.6-4.7) Magnesium Level 1.7 mg/dL (1.8-2.4) Glucose (Fingerstick) 153 mg/dL (70-99) Microbiology Micro Microbiology 10/13/20 Blood Culture - Final, Complete NO GROWTH AFTER 5 DAYS 10/13/20 Gram Stain Evaluation - Final, Complete 10/13/20 Respiratory Culture - Final, Complete 10/13/20 Urine Culture - Final, Complete 10/13/20 Antimicrobic Susceptibility - Final, Complete Physical Exam HEENT: Neck Supple W Full Motion Chest: Symmetric LUNGS: Other (DIMINISHED, NOW ON nc) Heart: RRR (SR) Abdomen: Soft N/T Extremities: Other (2+ bilateral LE pitting edema) Neurology: follow commands, confused Assessment Assessment 1. Acute hypoxic respiratory failure secondary to Covid pneumonia: Initially noted on 09/11/2020. PACS? s/p extubation. Continue management per pulmonary team. 2. Atrial fibrillation with RVR during extubation attempt: maintaining SR 3. Coronary artery disease s/p single-vessel coronary artery bypass surgery with GUZMAN to LAD. clinically stable 4. Hypertension: better controlled 5. Hyperlipidemia 6. Diabetes mellitus type 2: Treat per IM 7. Hx of NICM: recovered. EF and WM nl per TTE 8. Moderate pulmonary HTN 9. Encephalopathy; per PCP still confused Recommendations 1. Continue pulmonary optimization. Bipap PRN 2. Need outpt sleep study 3. Lasix therapy. replace Mg and K 4. Restart ASA and statin when able to take PO 5. Remains NPO. NTG paste. Change BB to PRN. Continue cardizem and monitor for bradycardia. Amiodarone for rhythm maintenance. Convert to PO when able to 6. MCOT Justicifation of Admission Dx: Justifications for Admission: Justification of Admission Dx: Yes BRITTNEE CHANDLER MD 10/19/20 1617: CARDIO Progress Notes Assessment Assessment Patient seen and evaluated. I agree with our nurse practitioners assessment and plan. Acute hypoxic respiratory failure secondary to Covid pneumonia: s/p extubation. Continue management per pulmonary team. Atrial fibrillation with RVR during extubation attempt: maintaining SR. on amiod arone. Outpatient monitor. Coronary artery disease s/p single-vessel coronary artery bypass surgery with GUZMAN to LAD. clinically stable Hypertension: better controlled Hyperlipidemia. Continue present medical treatment. Diabetes mellitus type 2: Treat per IM Hx of NICM: recovered. EF and WM nl per TTE Moderate pulmonary HTN Encephalopathy JOEY PICHARDO NET MANAGER Oct 19, 2020 12:44 BRITTNEE CHANDLER MD Oct 19, 2020 16:17
--- NOTE | 2020-10-19 13:00 | NUR ---
SS following up with discharge planning. SS reviewed pt chart and discussed with pt RN. Pt is currently requiring oxygen at five liters nasal canula and BIPAP HS. COVID19 recovered. Pt on IV Zosyn and IV Lasix. Pt on Amiodarone and Cardizem drip. Pt having potassium and magnesium replaced today. NPO. Pt failed ST evaluation today. PT/OT recommended acute rehabilitation. SS met with pt and spouse in room and discussed. Pt's spouse requesting LTACH referral at this time to [facility], ; fax [phone]. SS phoned and faxed referral as requested. SS will continue to follow for discharge planning.
--- NOTE | 2020-10-19 13:03 | PDOC ---
[facility] [facility] PROGRESS NOTE Date of Service DOS: DATE: 10/19/20 TIME: 12:59 Chief Complaint Chief Complaint A/P: Acute COVID-19 pneumonia - s/p steroids, remdesivir Acute hypoxic respiratory failure - 2/2 COVID and ARDS Sepsis - due to above Bradycardia - unable to tolerate BB Diabetes mellitus type 2 HTN HLD CAD - 01/2012 with LESLEY to LAD (in-stent thrombosis) prompting CABG in the with GUZMAN to LAD. Acute on chronic combined systolic and diastolic CHF - lasix prn. Will echo and BNP h/o Cardiomyopathy - historically EF of 40-45%. FEN - NGT feeds PPX - Lovenox for DVT prophylaxis, Protonix GI prophylaxis Full code Dispo - ICU Discussed with RN and SW Disposition patient management as above Surrogate decision maker is the Jenni Morrissey History of Present Illness History of Present Illness 10/19/2020 No acute events overnight. Patient saturating 93% on 5 L nasal cannula. Working with physical therapy at the time with at bedside. Definitely improvement since his ICU course. Failed swallow study we'll continue with n.p.o. Potassium of 2.7 and magnesium 1.5 today. Will replace IV electrolytes. Patient's chart, labs, images were reviewed and discussed with RN 10/18/2020 patient seen and examined in the ICU his Jenni is present she has good support for him currently on nasal cannula oxygen at 5 L Amado to bedside drainage rectal tube in place discussed with RN chart reviewed 10/17/2020 Patient seen and examined in the ICU His is present Currently back on BiPAP 25/07 with 40% FiO2 O2 sat is 99% I reviewed the chest x-rays and labs with his Chart reviewed Discussed with RN He remains critically ill Mr Morrissey is a 65-year-old white male w/ PMHx HTN, DM2, HLD, GERD, CAD s/p CABG 2011 presented to ED due to worsening cough and shortness of breath; patient also experiencing vomiting and diarrhea. Patient was recently diagnosed with COVID-19 on September 11 and has been doing well since that until a few days prior to arrival when his symptoms acutely worsened this morning. Has not received Covid vaccine. Close contacts at home have very similar symptoms. 09/21: Patient saturating 98% on 10 L nasal cannula. Increasing O2 requirements may consider pulmonology consult. On remdesivir, steroids 09/22: Patient saturating 91% on 10 L nasal cannula. Shortness of breath with ambulation. Combivent inhaler ordered today. 09/23: Patient is requiring increasing O2 requirements. Saturating 88% on 15 L nonrebreather and also nasal cannula. ICU transfer and intubated. 09/24: In ICU on vent. Afebrile, currently breathing FiO2 100%, PEEP 10. Final dose of remdesivir today. 09/25: Afebrile. On vent with FiO2 80%, PEEP 9. He has completed course of remdesivir. IV steroids for total dose 10 days and IV Zosyn. 09/26: Afebrile. Remains on vent with FiO2 70%, PEEP 8. Completed remdesivir. Continue prophylactic IV Zosyn. 09/27: No acute events overnight. Afebrile. On vent with FiO2 70%, PEEP 8. Cont IV antibiotics and steroids, with taper. Completed remdesivir. 09/28: Afebrile. On vent with FiO2 90%, PEEP 8. Completed remdesivir. Continue IV antibiotics. KUB with good OGT placement 09/29: Afebrile. On vent with increased oxygen requirement, FiO2 100%, PEEP 8. CXR increasing bilateral airspace opacities 09/30: On vent with FiO2 90%, PEEP 8. Afebrile. Steroids have been increased to dexamethasone 20 mg for 5 days, 10 mg for 5 days 10/01: No acute events overnight. Patient saturating 97% on vent settings of 22/500/80/8. Currently sedated and intubated. 10/02: Patient saturating 95% on vent settings of 22/500/75/7. ABG expected at 7.4 /72/28. Currently intubated and sedated. 10/03: No acute events overnight. Patient saturating 94% on vent settings of 22/500/75/7. Improved sugar control. 10/04: Saturating 100% on vent settings of 22/500/65/7. Last ABG show pH of 7.5 /113/28. Adjustments to vent settings by pulmonology. 10/05: No acute events overnight. Patient saturating 96% on vent settings of 20/500/65/7. Discussed prognosis with family. 10/06: No acute events overnight. Patient saturating 95% on vent settings of 20/500/50/6. No other concerns from nursing at this time. 10/07: No acute events overnight. Patient saturating 96% on vent settings of 20/500/50/6. T-max of 100.3. 10/08: Afebrile overnight. Sedated with propofol Versed and fentanyl PEEP of 6 FiO2 50% ABG 7.4 . Discussed with bedside. 10/09: T-max 100.3 F. Sedated with propofol Versed fentanyl, O2 saturations 96%, ABG 7.4 on FiO2 50% and normal PEEP of 6. D/w bedside. Good UOP 10/10: Afebrile. Sedation wean this morning respirations increased significantly back on sedation. ABG 7.40 FiO2 45% PEEP 6. Discussed with bedside O2 is significantly improving. 10/11: Afebrile. Agitated with sedation wean added Precedex. FiO2 40% PEEP 5. Will attempt sedation wean again today. D/w bedside. 10/12: Chest radiograph improved . ABG 7.4 / on 40% FiO2 PEEP 5. Respiratory rate 28 with wean this morning and blood pressure elevated. Will try to wean again later today. Discussed with at bedside 10/13: Febrile 101.1 F overnight. Very agitated with attempted wean with increased BP ABG 7.471/38.4/71.2 on FiO2 40% PEEP 5. Respiratory blood and urine cultures for fever. Zosyn for coverage for possible VAP, f/u CXR 10/14: Afebrile. O2 saturations improved with furosemide. Urine output 2.7 L. K3.3 mag 1.7 WBC 7.6, Hb 9.3, platelets 158. Starting vent wean. Cultures pending, still on zosyn 10/13 Discussed with Pulmonology adding low-dose Haldol with vent weans will hold on propofol as QT sees around 470. Will maintain telemetry. As needed hydralazine and Vasotec for elevated blood pressure. Discussed with bedside CC time 34 minutes 10/15/2020: Patient seen and examined in the ICU with family present. Currently on BiPAP 16/16, 50% FiO2, and rate 20. Sedated with dexmedetomidine. On diltiazem drip. Amado to BSD. Rectal bag present. Triple lumen PICC in the right arm and right heel ulcer present. Chest x-ray from today showed stable diffuse bilateral opacities.Discussed with RN. Chart reviewed. 10/16/2020 Patient seen and examined in the ICU His is present Currently on Ventimask 50% FiO2 Chart reviewed Discussed with RN He is still quite ill Vitals/I&O Vitals/I&O: Vital Signs Date Time Temp Pulse Resp B/P (MAP) Pulse Ox O2 Delivery O2 Flow Rate FiO2 10/19/20 12:37 73 186/64 10/19/20 07:50 Nasal Cannula 5.0 10/19/20 07:21 98.9 18 93 98.9 I & O 10/18/20 10/18/20 10/19/20 15:00 23:00 07:00 Intake Total 250 ml 0 ml Output Total 975 ml 450 ml Balance -725 ml 0 ml -450 ml Physical Exam General: Alert, Cooperative, Other (Soft voice during conversation) Heart: Regular rate, Other (Heart rate tachycardic and irregular) Lungs: Crackles Abdomen: Soft Extremities: No cyanosis Skin: No rashes, No significant lesion Labs Labs: Laboratory Tests Test 10/18/20 17:10 10/18/20 21:18 10/18/20 23:48 10/19/20 06:11 Glucose (Fingerstick) 167 mg/dL (70-99) 186 mg/dL (70-99) 158 mg/dL (70-99) 137 mg/dL (70-99) Test 10/19/20 08:30 10/19/20 12:15 Sodium Level 146 mmol/L (136-145) Potassium Level 2.7 mmol/L (3.5-5.1) Chloride Level 105 mmol/L (98-107) Carbon Dioxide Level 31 mmol/L (21-32) Anion Gap 10 (6-14) Blood Urea Nitrogen 7 mg/dL (8-26) Creatinine 0.7 mg/dL (0.7-1.3) Estimated GFR (Cockcroft-Gault) 113.9 Glucose Level 173 mg/dL (70-99) Calcium Level 8.2 mg/dL (8.5-10.1) Phosphorus Level 2.7 mg/dL (2.6-4.7) Magnesium Level 1.7 mg/dL (1.8-2.4) Glucose (Fingerstick) 153 mg/dL (70-99) Assessment and Plan Assessmemt and Plan Problems Medical Problems: (1) Bilateral pulmonary infiltrates on CXR Status: Acute (2) Fever Status: Acute (3) Hypoxia Status: Acute (4) Lab test positive for detection of COVID-19 virus Status: Acute Comment Review of Relevant I have reviewed the following items lukasz (where applicable) has been applied. Medications: Current Medications Medications (Trade) Dose Ordered Sig/Khadar Route PRN Reason Start Time Stop Time Status Last Admin Dose Admin Amiodarone HCl 150 mg/Dextrose 103 ml @ 600 mls/hr 1X ONCE IV 10/18/20 13:30 10/18/20 13:45 DC 10/18/20 14:55 Amiodarone HCl 450 mg/Dextrose 259 ml @ 0 mls/hr CONT PRN IV SEE I/O RECORD 10/18/20 13:30 10/19/20 13:29 10/19/20 09:47 Acetaminophen (Tylenol Supp) 650 mg PRN Q6HRS PRN SC MILD PAIN / TEMP > 100.3'F 10/18/20 23:45 10/18/20 23:49 Justifications for Admission Other Justification ARTHUR MCLEOD MD Oct 19, 2020 13:03
[2020-10-19] MEDS ORDERED: MAGNESIUM SULFATE 2GM 50 ML IV ONE (13:30)
--- NOTE | 2020-10-19 13:53 | RAD ---
EXAM: XR CHEST 1V 10/19/2020 11:55 AM CLINICAL INDICATION: Respiratory failure COMPARISON: Chest radiograph 10/17/2020 TECHNIQUE: AP semiupright view of the chest FINDINGS: A right PICC is unchanged with tip at the superior cavoatrial junction. The cardiac silhou ette is stable. There are median sternotomy wires. Patchy bilateral interstitial and airspace opaciti es mildly decreased. There is no pleural effusion or pneumothorax. IMPRESSION: Mildly improved pulmonary opacities. Electronically signed by: Elsa Remy MD (10/19/2020 1:51 PM) [id number]
[2020-10-19] MEDS ORDERED: POTASSIUM CHLORIDE 20 MEQ IV SCH (15:30)
[2020-10-19] MEDS: POTASSIUM CHLORIDE 20MEQ 100 ML IV SCH ×2 (15:43→17:36)
[2020-10-19] MEDS: hydrALAZINE 20 MG/ML VIAL. IVP PRN (19:14)
[2020-10-19] MEDS: SIMVASTATIN 20 MG TABLET PO SCH (19:59)
--- NOTE | 2020-10-19 21:39 | NUR ---
Call to Dr Guillory patient pulled PICC line out. Orders received. will continue to monitor.
[2020-10-19] MEDS ORDERED: 0.9 % SODIUM CHLORIDE 10 ML DISP.SYRIN. IV PRN ×2 (21:45)
--- NOTE | 2020-10-19 23:05 | NUR ---
2246: Patient went into [facility]. See code blue sheet. ROSC 2248. Dr Martinez paged. Orders received. Will continue to monitor.
[2020-10-19 23:32] LABS: BASO # 0.1 x10^3/uL (0.0-0.2); BASO % 1 % (0-3); EOS # 0.4 x10^3/uL (0.0-0.7); EOS % 3 % (0-3); HEMATOCRIT 35.4 % (39.0-53.0); LYMPH # 2.6 x10^3/uL (1.0-4.8); LYMPH % 22 % (24-48); MEAN CORPUSCULAR HEMOGLOBIN 30 pg (25-35); MEAN CORPUSCULAR HGB CONC 34 g/dL (31-37); MEAN CORPUSCULAR VOLUME 88 fL (79-100); MONO # 1.1 x10^3/uL (0.0-1.1); MONO % 9 % (0-9); NEUT # 7.5 x10^3/uL (1.8-7.7); NEUT % 64 % (31-73); PLATELET COUNT 437 x10^3/uL (140-400); RED BLOOD COUNT 4.03 x10^6/uL (4.30-5.70); RED CELL DISTRIBUTION WIDTH 14.8 % (11.5-14.5); WHITE BLOOD COUNT 11.7 x10^3/uL (4.0-11.0)
[2020-10-19 23:36] LABS: BASE EXCESS ABG 2 mmol/L (-3-3); HCO3 ABG 24 mmol/L (21-28); PCO2 ABG 28 mmHg (35-46); PO2 ABG 118 mmHg (65-108); SAT O2 ABG 98 % (92-99)
[2020-10-19 23:45] LABS: CALCIUM 7.9 mg/dL (8.5-10.1); CREATININE 0.7 mg/dL (0.7-1.3); GFR 113.9; MAGNESIUM 1.9 mg/dL (1.8-2.4)
[2020-10-20] VITALS (26 sets, daily range): BP systolic 145–180; BP diastolic 55–85
[2020-10-20] LABS: POTASSIUM 2.6 mmol/L (3.5-5.1)
[2020-10-20] MEDS: POTASSIUM CHLORIDE 10MEQ 100 ML IV SCH ×12 (00:13→16:35)
[2020-10-20] MEDS ORDERED: MAGNESIUM SULFATE 2GM 50 ML IV ONE ×2 (00:30→21:00)
[2020-10-20] MEDS ORDERED: AMIODARONE 450 MG in IV DEXTROSE 5% 250 ML IV ONE (01:00)
[2020-10-20] MEDS: PIPERACILLIN/TAZOBACTAM 3.375 GM in IV NORMAL SALINE 50ML 50 ML IV SCH ×5 (05:59→23:34)
[2020-10-20] MEDS: INSULIN LISPRO 300 UNITS/3 ML VIAL. SQ SCH ×5 (06:00→23:32)
[2020-10-20] MEDS: NITROGLYCERIN OINT 1 GM PACKET. TP SCH ×5 (06:35→23:33)
[2020-10-20] MEDS: PANTOPRAZOLE IV PUSH 40 MG VIAL. IVP SCH (07:55)
[2020-10-20] MEDS: hydrALAZINE 20 MG/ML VIAL. IVP PRN ×2 (07:55→15:37)
[2020-10-20] MEDS: ASPIRIN CHEWABLE 81 MG TABLET. PO SCH (08:00)
[2020-10-20 08:01] LABS: CALCIUM 8.2 mg/dL (8.5-10.1); CREATININE 0.6 mg/dL (0.7-1.3); GFR 136.1; MAGNESIUM 1.9 mg/dL (1.8-2.4)
[2020-10-20 08:15] LABS: POTASSIUM 2.8 mmol/L (3.5-5.1)
[2020-10-20] MEDS: ZINC SULFATE 220 MG CAPSULE. PO SCH (08:30)
[2020-10-20] MEDS: MULTIVITAMINS,THERAPEUTIC 5 ML ORAL LIQUID. PEG SCH (08:30)
[2020-10-20] MEDS: ASCORBIC ACID 1,000 MG TABLET PO SCH ×3 (08:30→20:28)
[2020-10-20] MEDS: SENNOSIDES/DOCUSATE 8.6/50MG TABLET. PO SCH ×2 (08:30→20:28)
[2020-10-20] MEDS: AA 4.25 %/CALCIUM/LYTES/D5W 1,000 ML IV SCH ×2 (08:42→20:43)
[2020-10-20] MEDS: NYSTATIN TOPICAL POWDER 15GM BOTTLE. TP SCH ×2 (09:00→20:49)
[2020-10-20] MEDS: INSULIN GLARGINE SYRINGE. SQ SCH ×2 (09:00→20:48)
[2020-10-20] MEDS: FUROSEMIDE 40 MG/4 ML VIAL. IVP SCH (09:00)
--- NOTE | 2020-10-20 09:58 | PDOC ---
PULMONARY PROGRESS NOTES DATE: 10/20/20 TIME: 09:55 Subjective Patient was transferred to the ICU last night 10/19/20 due to ventricular tachycardia and brief asystole for which he required 1 minute of CPR. He was noted to be hypokalemic. Extubated 10/14 Appears very weak. Used BiPAP last night Currently on nasal cannula Cough is weak Vitals Vital Signs Date Time Temp Pulse Resp B/P (MAP) Pulse Ox O2 Delivery O2 Flow Rate FiO2 10/20/20 07:55 70 180/69 10/20/20 07:00 22 90 Nasal Cannula 2.0 10/20/20 04:00 98.1 98.1 General: No acute distress, Lethargic Lungs: Crackles Cardiovascular: S1, S2 Abdomen: Soft, Non-tender Neuro Exam: Alert Extremities: Other Skin: Warm Labs Laboratory Tests Test 10/18/20 17:10 10/18/20 21:18 10/18/20 23:48 10/19/20 06:11 Glucose (Fingerstick) 167 mg/dL (70-99) 186 mg/dL (70-99) 158 mg/dL (70-99) 137 mg/dL (70-99) Test 10/19/20 08:30 10/19/20 12:15 10/19/20 16:57 10/19/20 19:58 Sodium Level 146 mmol/L (136-145) Potassium Level 2.7 mmol/L (3.5-5.1) Chloride Level 105 mmol/L (98-107) Carbon Dioxide Level 31 mmol/L (21-32) Anion Gap 10 (6-14) Blood Urea Nitrogen 7 mg/dL (8-26) Creatinine 0.7 mg/dL (0.7-1.3) Estimated GFR (Cockcroft-Gault) 113.9 Glucose Level 173 mg/dL (70-99) Calcium Level 8.2 mg/dL (8.5-10.1) Phosphorus Level 2.7 mg/dL (2.6-4.7) Magnesium Level 1.7 mg/dL (1.8-2.4) Glucose (Fingerstick) 153 mg/dL (70-99) 133 mg/dL (70-99) 70 mg/dL (70-99) Test 10/19/20 23:10 10/19/20 23:22 10/20/20 07:40 White Blood Count 11.7 x10^3/uL (4.0-11.0) Red Blood Count 4.03 x10^6/uL (4.30-5.70) Hemoglobin 12.0 g/dL (13.0-17.5) Hematocrit 35.4 % (39.0-53.0) Mean Corpuscular Volume 88 fL (79-100) Mean Corpuscular Hemoglobin 30 pg (25-35) Mean Corpuscular Hemoglobin Concent 34 g/dL (31-37) Red Cell Distribution Width 14.8 % (11.5-14.5) Platelet Count 437 x10^3/uL (140-400) Neutrophils (%) (Auto) 64 % (31-73) Lymphocytes (%) (Auto) 22 % (24-48) Monocytes (%) (Auto) 9 % (0-9) Eosinophils (%) (Auto) 3 % (0-3) Basophils (%) (Auto) 1 % (0-3) Neutrophils # (Auto) 7.5 x10^3/uL (1.8-7.7) Lymphocytes # (Auto) 2.6 x10^3/uL (1.0-4.8) Monocytes # (Auto) 1.1 x10^3/uL (0.0-1.1) Eosinophils # (Auto) 0.4 x10^3/uL (0.0-0.7) Basophils # (Auto) 0.1 x10^3/uL (0.0-0.2) O2 Saturation 98 % (92-99) Arterial Blood pH 7.55 (7.35-7.45) Arterial Blood pCO2 at Patient Temp 28 mmHg (35-46) Arterial Blood pO2 at Patient Temp 118 mmHg (65-108) Arterial Blood HCO3 24 mmol/L (21-28) Arterial Blood Base Excess 2 mmol/L (-3-3) FiO2 40% bipap Sodium Level 145 mmol/L (136-145) 145 mmol/L (136-145) Potassium Level 2.6 mmol/L (3.5-5.1) 2.8 mmol/L (3.5-5.1) Chloride Level 106 mmol/L (98-107) 106 mmol/L (98-107) Carbon Dioxide Level 26 mmol/L (21-32) 25 mmol/L (21-32) Anion Gap 13 (6-14) 14 (6-14) Blood Urea Nitrogen 4 mg/dL (8-26) 4 mg/dL (8-26) Creatinine 0.7 mg/dL (0.7-1.3) 0.6 mg/dL (0.7-1.3) Estimated GFR (Cockcroft-Gault) 113.9 136.1 Glucose Level 123 mg/dL (70-99) 93 mg/dL (70-99) Calcium Level 7.9 mg/dL (8.5-10.1) 8.2 mg/dL (8.5-10.1) Magnesium Level 1.9 mg/dL (1.8-2.4) 1.9 mg/dL (1.8-2.4) Glucose (Fingerstick) 141 mg/dL (70-99) Laboratory Tests Test 10/19/20 12:15 10/19/20 16:57 10/19/20 19:58 10/19/20 23:10 Glucose (Fingerstick) 153 mg/dL (70-99) 133 mg/dL (70-99) 70 mg/dL (70-99) White Blood Count 11.7 x10^3/uL (4.0-11.0) Red Blood Count 4.03 x10^6/uL (4.30-5.70) Hemoglobin 12.0 g/dL (13.0-17.5) Hematocrit 35.4 % (39.0-53.0) Mean Corpuscular Volume 88 fL (79-100) Mean Corpuscular Hemoglobin 30 pg (25-35) Mean Corpuscular Hemoglobin Concent 34 g/dL (31-37) Red Cell Distribution Width 14.8 % (11.5-14.5) Platelet Count 437 x10^3/uL (140-400) Neutrophils (%) (Auto) 64 % (31-73) Lymphocytes (%) (Auto) 22 % (24-48) Monocytes (%) (Auto) 9 % (0-9) Eosinophils (%) (Auto) 3 % (0-3) Basophils (%) (Auto) 1 % (0-3) Neutrophils # (Auto) 7.5 x10^3/uL (1.8-7.7) Lymphocytes # (Auto) 2.6 x10^3/uL (1.0-4.8) Monocytes # (Auto) 1.1 x10^3/uL (0.0-1.1) Eosinophils # (Auto) 0.4 x10^3/uL (0.0-0.7) Basophils # (Auto) 0.1 x10^3/uL (0.0-0.2) O2 Saturation 98 % (92-99) Arterial Blood pH 7.55 (7.35-7.45) Arterial Blood pCO2 at Patient Temp 28 mmHg (35-46) Arterial Blood pO2 at Patient Temp 118 mmHg (65-108) Arterial Blood HCO3 24 mmol/L (21-28) Arterial Blood Base Excess 2 mmol/L (-3-3) FiO2 40% bipap Sodium Level 145 mmol/L (136-145) Potassium Level 2.6 mmol/L (3.5-5.1) Chloride Level 106 mmol/L (98-107) Carbon Dioxide Level 26 mmol/L (21-32) Anion Gap 13 (6-14) Blood Urea Nitrogen 4 mg/dL (8-26) Creatinine 0.7 mg/dL (0.7-1.3) Estimated GFR (Cockcroft-Gault) 113.9 Glucose Level 123 mg/dL (70-99) Calcium Level 7.9 mg/dL (8.5-10.1) Magnesium Level 1.9 mg/dL (1.8-2.4) Test 10/19/20 23:22 10/20/20 07:40 Glucose (Fingerstick) 141 mg/dL (70-99) Sodium Level 145 mmol/L (136-145) Potassium Level 2.8 mmol/L (3.5-5.1) Chloride Level 106 mmol/L (98-107) Carbon Dioxide Level 25 mmol/L (21-32) Anion Gap 14 (6-14) Blood Urea Nitrogen 4 mg/dL (8-26) Creatinine 0.6 mg/dL (0.7-1.3) Estimated GFR (Cockcroft-Gault) 136.1 Glucose Level 93 mg/dL (70-99) Calcium Level 8.2 mg/dL (8.5-10.1) Magnesium Level 1.9 mg/dL (1.8-2.4) Medications Active Scripts Medications Dose Route/Sig Max Daily Dose Days Date Category Icosapent Ethyl 1 Gm Capsule 2 Cap PO BID 09/20/20 Reported Metformin Hcl 1,000 Mg Tablet 1 Tab PO BID 09/20/20 Reported Rybelsus (Semaglutide) 7 Mg Tablet 1 Tab PO DAILY 09/20/20 Reported Farxiga (Dapagliflozin Propanediol) 10 Mg Tablet 1 Tab PO DAILY 09/20/20 Reported Trelegy Ellipta 100-62.5-25 (Fluticasone/Umeclidin/Vilanter) 1 Each Blst.w.dev 1 Puff INH DAILY 09/20/20 Reported Benzonatate 200 Mg Capsule 1 Cap PO TID PRN 09/20/20 Reported Montelukast Sodium 10 Mg Tablet 1 Tab PO DAILY 09/20/20 Reported Loratadine 10 Mg Tablet 1 Tab PO DAILY 09/20/20 Reported Fluticasone Propionate Nasal [place] (Fluticasone Propionate) 16 Gm [place].susp 1 Sprays NS BID 09/20/20 Reported Simvastatin 20 Mg Tablet 1 Tab PO QHS 11/20/15 Reported Impression . 1. Acute hypoxic respiratory failure secondary to COVID-19 viral pneumonia/acute lung injury.---intubated 09/23/20. Status post extubation 10/14 2. Abnormal chest x-ray consistent with mild infiltrates favoring COVID-19 viral pneumonia. 3. Leukopenia and thrombocytopenia due to COVID-19 viral pneumonia.--improved 4. No significant tobacco history. 5. Encephalopathy, multifactorial, prior to intubation 6. Delirium 7. Critical care myopathy 8. New onset A. fib with rapid ventricular response 10/15. Currently on Cardizem drip and also on amiodarone 9. Brief asystole and ventricular tachycardia, likely prostrated by hypokalem ia. Chest x-ray reviewed bilateral pulmonary infiltrates compatible with CHF Plan . Updated 10/20 Discussed with RN and patient's at the bedside. Currently hypokalemia is being corrected. Follow cardiology recommendations regarding ventricular tachycardia. Patient is still very weak. He will take a long time to recover. He will be a good candidate for LTAC Continue nightly BiPAP Monitor x-ray and labs Chest x-ray from 10/17 reviewed no significant change in bilateral opacities Above discussed with at the bedside PT and OT Nutritional support. Follow speech recommendations. Is still not able to eat p.o. patient patient will have PICC line today and consider TPN. I have discussed with patient's that we may need a PEG tube Updated 10/19 Discussed with RN and patient's at the bedside. Patient is still very weak. He will take a long time to recover. He will be a good candidate for LTAC Continue nightly BiPAP Monitor x-ray and labs Chest x-ray from 10/17 reviewed no significant change in bilateral opacities Above discussed with at the bedside PT and OT Nutritional support. Follow speech recommendations. Is still not able to eat p.o. Updated 10/18 Cussed with RN, transfer out of the intensive care unit Continue nightly BiPAP Monitor x-ray and labs Replace potassium Chest x-ray from 10/17 reviewed no significant change in bilateral opacities Above discussed with at the bedside PT and OT Nutritional support updated 10/17 Patient slowly improving, discussed with , no need for trach Continue Venturi mask BiPAP nightly Follow cardiology input If continues to do well transfer out of the ICU updated 10/16 Patient continues to be critically ill in the intensive care unit, respiratory status tenuous Currently on Venturi mask Continue as needed BiPAP IV Lasix Extubated 10/14 DVT GI prophylaxis Discussed with Total cumulative critical care time of approximately 33 to 35 minutes, reviewing the current documentation, chest x-ray, labs, formulating and impression and plan. updated 10/15 Patient in A. fib currently on IV Cardizem Extubated 10/14, currently on BiPAP holding his own Face mask not sealing very well, will proceed with shaving his whiskers IV Lasix Chest x-ray reviewed slightly worse Discussed case with at the bedside Total cumulative critical care time of 30 minutes with no overlap Labs reviewed, magnesium 1.8 ERIC GOTTLIEB MD Oct 20, 2020 09:57
--- NOTE | 2020-10-20 11:43 | PDOC ---
[employer] PROGRESS NOTE Date of Service DOS: DATE: 10/20/20 TIME: 11:15 Chief Complaint Chief Complaint Acute COVID-19 pneumonia Acute hypoxic respiratory failure Sepsis - due to above Bradycardia Diabetes mellitus type 2 HTN HLD CAD Acute on chronic combined systolic and diastolic CHF h/o Cardiomyopathy - historically EF of 40-45%. History of Present Illness History of Present Illness 10/20: Patient seen and examined in the ICU. Currently on 3 L of oxygen per nasal cannula. His Jenni is present. Discussed with RN. Chart reviewed. Patient was resting with NAD. Transferred to ICU last night due to ventricular tachycardia with brief asystole requiring CPR. On 3L O2 per nasal canula. O2 Sat is 97%. Requiring nightly BIPAP with 40% FiO2. IV Potassium was initiated due to potassium level of 2.8. Started on Clinimix. On amiodarone drip, IV fluids, IV zosyn. Plan to place PICC line today. Chest X-ray indicated mild improvement. 10/19/2020 No acute events overnight. Patient saturating 93% on 5 L nasal cannula. Work ing with physical therapy at the time with at bedside. Definitely improvement since his ICU course. Failed swallow study we'll continue with n.p.o. Potassium of 2.7 and magnesium 1.5 today. Will replace IV electrolytes. Patient's chart, labs, images were reviewed and discussed with RN 10/18/2020 patient seen and examined in the ICU his Jenni is present she has good support for him currently on nasal cannula oxygen at 5 L Amado to bedside drainage rectal tube in place discussed with RN chart reviewed 10/17/2020 Patient seen and examined in the ICU His is present Currently back on BiPAP 25/07 with 40% FiO2 O2 sat is 99% I reviewed the chest x-rays and labs with his Chart reviewed Discussed with RN He remains critically ill Mr Morrissey is a 65-year-old white male w/ PMHx HTN, DM2, HLD, GERD, CAD s/p CABG 2011 presented to ED due to worsening cough and shortness of breath; patient also experiencing vomiting and diarrhea. Patient was recently diagnosed with COVID-19 on September 11 and has been doing well since that until a few days prior to arrival when his symptoms acutely worsened this morning. Has not received Covid vaccine. Close contacts at home have very similar symptoms. 09/21: Patient saturating 98% on 10 L nasal cannula. Increasing O2 requirements may consider pulmonology consult. On remdesivir, steroids 09/22: Patient saturating 91% on 10 L nasal cannula. Shortness of breath with ambulation. Combivent inhaler ordered today. 09/23: Patient is requiring increasing O2 requirements. Saturating 88% on 15 L nonrebreather and also nasal cannula. ICU transfer and intubated. 09/24: In ICU on vent. Afebrile, currently breathing FiO2 100%, PEEP 10. Final dose of remdesivir today. 09/25: Afebrile. On vent with FiO2 80%, PEEP 9. He has completed course of remdesivir. IV steroids for total dose 10 days and IV Zosyn. 09/26: Afebrile. Remains on vent with FiO2 70%, PEEP 8. Completed remdesivir. Continue prophylactic IV Zosyn. 09/27: No acute events overnight. Afebrile. On vent with FiO2 70%, PEEP 8. Cont IV antibiotics and steroids, with taper. Completed remdesivir. 09/28: Afebrile. On vent with FiO2 90%, PEEP 8. Completed remdesivir. Continue IV antibiotics. KUB with good OGT placement 09/29: Afebrile. On vent with increased oxygen requirement, FiO2 100%, PEEP 8. CXR increasing bilateral airspace opacities 09/30: On vent with FiO2 90%, PEEP 8. Afebrile. Steroids have been increased to dexamethasone 20 mg for 5 days, 10 mg for 5 days 10/01: No acute events overnight. Patient saturating 97% on vent settings of 22/500/80/8. Currently sedated and intubated. 10/02: Patient saturating 95% on vent settings of 22/500/75/7. ABG expected at 7.4 44/72/28. Currently intubated and sedated. 10/03: No acute events overnight. Patient saturating 94% on vent settings of 22/500/75/7. Improved sugar control. 10/04: Saturating 100% on vent settings of 22/500/65/7. Last ABG show pH of 7.5 236/113/28. Adjustments to vent settings by pulmonology. 10/05: No acute events overnight. Patient saturating 96% on vent settings of 20/500/65/7. Discussed prognosis with family. 10/06: No acute events overnight. Patient saturating 95% on vent settings of 20/500/50/6. No other concerns from nursing at this time. 10/07: No acute events overnight. Patient saturating 96% on vent settings of 20/500/50/6. T-max of 100.3. 10/08: Afebrile overnight. Sedated with propofol Versed and fentanyl PEEP of 6 FiO2 50% ABG 7.4 . Discussed with bedside. 10/09: T-max 100.3 F. Sedated with propofol Versed fentanyl, O2 saturations 96%, ABG 7.4 on FiO2 50% and normal PEEP of 6. D/w bedside. Good UOP 10/10: Afebrile. Sedation wean this morning respirations increased significantly back on sedation. ABG 7.40 / FiO2 45% PEEP 6. Discussed with bedside O2 is significantly improving. 10/11: Afebrile. Agitated with sedation wean added Precedex. FiO2 40% PEEP 5. Will attempt sedation wean again today. D/w bedside. 10/12: Chest radiograph improved . ABG 7.4 / on 40% FiO2 PEEP 5. Respiratory rate 28 with wean this morning and blood pressure elevated. Will try to wean again later today. Discussed with at bedside 10/13: Febrile 101.1 F overnight. Very agitated with attempted wean with increased BP ABG 7.471/38.4/71.2 on FiO2 40% PEEP 5. Respiratory blood and urine cultures for fever. Zosyn for coverage for possible VAP, f/u CXR 10/14: Afebrile. O2 saturations improved with furosemide. Urine output 2.7 L. K3.3 mag 1.7 WBC 7.6, Hb 9.3, platelets 158. Starting vent wean. Cultures pending, still on zosyn 10/13 Discussed with Pulmonology adding low-dose Haldol with vent weans will hold on propofol as QT sees around 470. Will maintain telemetry. As needed hydralazine and Vasotec for elevated blood pressure. Discussed with bedside CC time 34 minutes 10/15/2020: Patient seen and examined in the ICU with family present. Currently on BiPAP /, 50% FiO2, and rate 20. Sedated with dexmedetomidine. On diltiazem drip. Amado to BSD. Rectal bag present. Triple lumen PICC in the right arm and right heel ulcer present. Chest x-ray from today showed stable diffuse bilateral opacities.Discussed with RN. Chart reviewed. 10/16/2020 Patient seen and examined in the ICU His is present Currently on Ventimask 50% FiO2 Chart reviewed Discussed with RN He is still quite ill Vitals/I&O Vitals/I&O: Vital Signs Date Time Temp Pulse Resp B/P (MAP) Pulse Ox O2 Delivery O2 Flow Rate FiO2 10/20/20 11:00 74 24 159/70 (99) 96 Nasal Cannula 3.0 10/20/20 08:00 98.9 98.9 I & O 10/19/20 10/19/20 10/20/20 15:00 23:00 07:00 Intake Total 0 ml 100 ml Output Total 3300 ml 500 ml Balance 0 ml -3300 ml -400 ml Physical Exam General: Alert, Cooperative, Other (Soft voice during conversation) Heart: Regular rate, Other (Heart rate tachycardic and irregular) Lungs: Crackles Abdomen: Soft Extremities: No cyanosis Skin: No rashes, No significant lesion Labs Labs: Laboratory Tests Test 10/19/20 12:15 10/19/20 16:57 10/19/20 19:58 10/19/20 23:10 Glucose (Fingerstick) 153 mg/dL (70-99) 133 mg/dL (70-99) 70 mg/dL (70-99) White Blood Count 11.7 x10^3/uL (4.0-11.0) Red Blood Count 4.03 x10^6/uL (4.30-5.70) Hemoglobin 12.0 g/dL (13.0-17.5) Hematocrit 35.4 % (39.0-53.0) Mean Corpuscular Volume 88 fL (79-100) Mean Corpuscular Hemoglobin 30 pg (25-35) Mean Corpuscular Hemoglobin Concent 34 g/dL (31-37) Red Cell Distribution Width 14.8 % (11.5-14.5) Platelet Count 437 x10^3/uL (140-400) Neutrophils (%) (Auto) 64 % (31-73) Lymphocytes (%) (Auto) 22 % (24-48) Monocytes (%) (Auto) 9 % (0-9) Eosinophils (%) (Auto) 3 % (0-3) Basophils (%) (Auto) 1 % (0-3) Neutrophils # (Auto) 7.5 x10^3/uL (1.8-7.7) Lymphocytes # (Auto) 2.6 x10^3/uL (1.0-4.8) Monocytes # (Auto) 1.1 x10^3/uL (0.0-1.1) Eosinophils # (Auto) 0.4 x10^3/uL (0.0-0.7) Basophils # (Auto) 0.1 x10^3/uL (0.0-0.2) O2 Saturation 98 % (92-99) Arterial Blood pH 7.55 (7.35-7.45) Arterial Blood pCO2 at Patient Temp 28 mmHg (35-46) Arterial Blood pO2 at Patient Temp 118 mmHg (65-108) Arterial Blood HCO3 24 mmol/L (21-28) Arterial Blood Base Excess 2 mmol/L (-3-3) FiO2 40% bipap Sodium Level 145 mmol/L (136-145) Potassium Level 2.6 mmol/L (3.5-5.1) Chloride Level 106 mmol/L (98-107) Carbon Dioxide Level 26 mmol/L (21-32) Anion Gap 13 (6-14) Blood Urea Nitrogen 4 mg/dL (8-26) Creatinine 0.7 mg/dL (0.7-1.3) Estimated GFR (Cockcroft-Gault) 113.9 Glucose Level 123 mg/dL (70-99) Calcium Level 7.9 mg/dL (8.5-10.1) Magnesium Level 1.9 mg/dL (1.8-2.4) Test 10/19/20 23:22 10/20/20 07:40 Glucose (Fingerstick) 141 mg/dL (70-99) Sodium Level 145 mmol/L (136-145) Potassium Level 2.8 mmol/L (3.5-5.1) Chloride Level 106 mmol/L (98-107) Carbon Dioxide Level 25 mmol/L (21-32) Anion Gap 14 (6-14) Blood Urea Nitrogen 4 mg/dL (8-26) Creatinine 0.6 mg/dL (0.7-1.3) Estimated GFR (Cockcroft-Gault) 136.1 Glucose Level 93 mg/dL (70-99) Calcium Level 8.2 mg/dL (8.5-10.1) Magnesium Level 1.9 mg/dL (1.8-2.4) Review of Systems Review of Systems: Endorses weakness. Denies loss of vision. Assessment and Plan Assessmemt and Plan Problems Medical Problems: (1) Bilateral pulmonary infiltrates on CXR Status: Acute (2) Fever Status: Acute (3) Hypoxia Status: Acute (4) Lab test positive for detection of COVID-19 virus Status: Acute Assessment: Acute COVID-19 pneumonia Acute hypoxic respiratory failure Sepsis - due to above Bradycardia Diabetes mellitus type 2 HTN HLD CAD Acute on chronic combined systolic and diastolic CHF h/o Cardiomyopathy - historically EF of 40-45%. Plan: 1. Continue COVD-19 Protocol (IV zosyn, robitussin, multivitamin with minerals, aspirin, O2) -Remdesivir course 09/20-09/24 -Dexamethasone course 09/20-10/03 2. Continue ICU monitoring 3. Appreciate subspecialty input from cardiology and pulmonology 4. Place PICC line today 5. Continue Clinimix 6. Continue potassium supplement until hypokalemia corrected 7. Continue nightly BIPAP 8. Monitor X-ray and labs 9. PPX - Lovenox for DVT prophylaxis 10. Protonix GI prophylaxis 11. Full code O2 per nasal cannula for now as needed BiPAP Surrogate decision maker is the Jenni Morrissey Prognosis guarded CC time 32 minutes Comment Review of Relevant I have reviewed the following items lukasz (where applicable) has been applied. Medications: Current Medications Medications (Trade) Dose Ordered Sig/Khadar Route PRN Reason Start Time Stop Time Status Last Admin Dose Admin Magnesium Sulfate 50 ml @ 25 mls/hr 1X ONCE IV 10/19/20 13:30 10/19/20 15:29 DC 10/19/20 13:37 Potassium Chloride/Water 100 ml @ 100 mls/hr Q1H IV 10/19/20 13:30 10/19/20 15:29 DC 10/19/20 17:36 Potassium Chloride/Water 100 ml @ 100 mls/hr Q1H IV 10/20/20 00:30 10/20/20 04:29 DC 10/20/20 04:30 Magnesium Sulfate 50 ml @ 25 mls/hr 1X ONCE IV 10/20/20 00:30 10/20/20 02:29 DC 10/20/20 00:31 Amiodarone HCl 450 mg/Dextrose 259 ml @ 0 mls/hr 1X ONCE IV 10/20/20 01:00 10/20/20 01:01 DC 10/20/20 01:00 Potassium Chloride/Water 100 ml @ 100 mls/hr Q1H IV 10/20/20 09:00 10/20/20 16:59 10/20/20 11:12 Amino Acids/ Electrolytes/ Dextrose 1,000 ml @ 80 mls/hr [id number] IV 10/20/20 08:30 10/20/20 08:42 Justifications for Admission Other Justification MARLEY JIMENEZ III DO Oct 20, 2020 11:43
[2020-10-20] MEDS: ENOXAPARIN 40 MG/0.4 ML SYRINGE. SQ SCH (12:10)
--- NOTE | 2020-10-20 14:30 | PDOC ---
PROGRESS NOTES Date of Service DATE: 10/20/20 TIME: 14:28 Subjective Subjective Patient seen and examined Objective Objective Vital Signs Date Time Temp Pulse Resp B/P (MAP) Pulse Ox O2 Delivery O2 Flow Rate FiO2 10/20/20 13:00 72 24 165/71 (102) 95 Nasal Cannula 3.0 10/20/20 12:00 98.6 98.6 Intake and Output 10/20/20 07:00 Intake Total 100 ml Output Total 3800 ml Balance -3700 ml Intake Oral 0 ml IV Total 100 ml Output Urine Total 3800 ml # Bowel Movements 1 Physical Exam Abdomen: Normal bowel sounds Heart: Regular rate General: mild distress Lungs: Other (Decreased breath sounds) Assessment Assessment Problems Medical Problems: (1) Bilateral pulmonary infiltrates on CXR Status: Acute (2) Fever Status: Acute (3) Hypoxia Status: Acute (4) Lab test positive for detection of COVID-19 virus Status: Acute Acute hypoxic respiratory failure secondary to Covid pneumonia: Initially noted on 09/11/2020. PACS? s/p extubation. Continue management per pulmonary team. Atrial fibrillation with RVR during extubation attempt: maintaining SR. Episode of VT last night with brief CPR. Severely decreased potassium. Aggressive potassium replacement underway with continued monitoring. Continuing amiodarone. Coronary artery disease s/p single-vessel coronary artery bypass surgery with GUZMAN to LAD. clinically stable Hypertension: better controlled Hyperlipidemia Diabetes mellitus type 2: Treat per IM Hx of NICM: recovered. EF and WM nl per TTE Moderate pulmonary HTN Encephalopathy; per PCP still confused Comment Review of Relevant I have reviewed the following items lukasz (where applicable) has been applied. Labs Laboratory Tests Test 10/18/20 17:10 10/18/20 21:18 10/18/20 23:48 10/19/20 06:11 Glucose (Fingerstick) 167 mg/dL (70-99) 186 mg/dL (70-99) 158 mg/dL (70-99) 137 mg/dL (70-99) Test 10/19/20 08:30 10/19/20 12:15 10/19/20 16:57 10/19/20 19:58 Sodium Level 146 mmol/L (136-145) Potassium Level 2.7 mmol/L (3.5-5.1) Chloride Level 105 mmol/L (98-107) Carbon Dioxide Level 31 mmol/L (21-32) Anion Gap 10 (6-14) Blood Urea Nitrogen 7 mg/dL (8-26) Creatinine 0.7 mg/dL (0.7-1.3) Estimated GFR (Cockcroft-Gault) 113.9 Glucose Level 173 mg/dL (70-99) Calcium Level 8.2 mg/dL (8.5-10.1) Phosphorus Level 2.7 mg/dL (2.6-4.7) Magnesium Level 1.7 mg/dL (1.8-2.4) Glucose (Fingerstick) 153 mg/dL (70-99) 133 mg/dL (70-99) 70 mg/dL (70-99) Test 10/19/20 23:10 10/19/20 23:22 10/20/20 07:40 10/20/20 12:26 White Blood Count 11.7 x10^3/uL (4.0-11.0) Red Blood Count 4.03 x10^6/uL (4.30-5.70) Hemoglobin 12.0 g/dL (13.0-17.5) Hematocrit 35.4 % (39.0-53.0) Mean Corpuscular Volume 88 fL (79-100) Mean Corpuscular Hemoglobin 30 pg (25-35) Mean Corpuscular Hemoglobin Concent 34 g/dL (31-37) Red Cell Distribution Width 14.8 % (11.5-14.5) Platelet Count 437 x10^3/uL (140-400) Neutrophils (%) (Auto) 64 % (31-73) Lymphocytes (%) (Auto) 22 % (24-48) Monocytes (%) (Auto) 9 % (0-9) Eosinophils (%) (Auto) 3 % (0-3) Basophils (%) (Auto) 1 % (0-3) Neutrophils # (Auto) 7.5 x10^3/uL (1.8-7.7) Lymphocytes # (Auto) 2.6 x10^3/uL (1.0-4.8) Monocytes # (Auto) 1.1 x10^3/uL (0.0-1.1) Eosinophils # (Auto) 0.4 x10^3/uL (0.0-0.7) Basophils # (Auto) 0.1 x10^3/uL (0.0-0.2) O2 Saturation 98 % (92-99) Arterial Blood pH 7.55 (7.35-7.45) Arterial Blood pCO2 at Patient Temp 28 mmHg (35-46) Arterial Blood pO2 at Patient Temp 118 mmHg (65-108) Arterial Blood HCO3 24 mmol/L (21-28) Arterial Blood Base Excess 2 mmol/L (-3-3) FiO2 40% bipap Sodium Level 145 mmol/L (136-145) 145 mmol/L (136-145) Potassium Level 2.6 mmol/L (3.5-5.1) 2.8 mmol/L (3.5-5.1) Chloride Level 106 mmol/L (98-107) 106 mmol/L (98-107) Carbon Dioxide Level 26 mmol/L (21-32) 25 mmol/L (21-32) Anion Gap 13 (6-14) 14 (6-14) Blood Urea Nitrogen 4 mg/dL (8-26) 4 mg/dL (8-26) Creatinine 0.7 mg/dL (0.7-1.3) 0.6 mg/dL (0.7-1.3) Estimated GFR (Cockcroft-Gault) 113.9 136.1 Glucose Level 123 mg/dL (70-99) 93 mg/dL (70-99) Calcium Level 7.9 mg/dL (8.5-10.1) 8.2 mg/dL (8.5-10.1) Magnesium Level 1.9 mg/dL (1.8-2.4) 1.9 mg/dL (1.8-2.4) Glucose (Fingerstick) 141 mg/dL (70-99) 130 mg/dL (70-99) Laboratory Tests Test 10/19/20 16:57 10/19/20 19:58 10/19/20 23:10 10/19/20 23:22 Glucose (Fingerstick) 133 mg/dL (70-99) 70 mg/dL (70-99) 141 mg/dL (70-99) White Blood Count 11.7 x10^3/uL (4.0-11.0) Red Blood Count 4.03 x10^6/uL (4.30-5.70) Hemoglobin 12.0 g/dL (13.0-17.5) Hematocrit 35.4 % (39.0-53.0) Mean Corpuscular Volume 88 fL (79-100) Mean Corpuscular Hemoglobin 30 pg (25-35) Mean Corpuscular Hemoglobin Concent 34 g/dL (31-37) Red Cell Distribution Width 14.8 % (11.5-14.5) Platelet Count 437 x10^3/uL (140-400) Neutrophils (%) (Auto) 64 % (31-73) Lymphocytes (%) (Auto) 22 % (24-48) Monocytes (%) (Auto) 9 % (0-9) Eosinophils (%) (Auto) 3 % (0-3) Basophils (%) (Auto) 1 % (0-3) Neutrophils # (Auto) 7.5 x10^3/uL (1.8-7.7) Lymphocytes # (Auto) 2.6 x10^3/uL (1.0-4.8) Monocytes # (Auto) 1.1 x10^3/uL (0.0-1.1) Eosinophils # (Auto) 0.4 x10^3/uL (0.0-0.7) Basophils # (Auto) 0.1 x10^3/uL (0.0-0.2) O2 Saturation 98 % (92-99) Arterial Blood pH 7.55 (7.35-7.45) Arterial Blood pCO2 at Patient Temp 28 mmHg (35-46) Arterial Blood pO2 at Patient Temp 118 mmHg (65-108) Arterial Blood HCO3 24 mmol/L (21-28) Arterial Blood Base Excess 2 mmol/L (-3-3) FiO2 40% bipap Sodium Level 145 mmol/L (136-145) Potassium Level 2.6 mmol/L (3.5-5.1) Chloride Level 106 mmol/L (98-107) Carbon Dioxide Level 26 mmol/L (21-32) Anion Gap 13 (6-14) Blood Urea Nitrogen 4 mg/dL (8-26) Creatinine 0.7 mg/dL (0.7-1.3) Estimated GFR (Cockcroft-Gault) 113.9 Glucose Level 123 mg/dL (70-99) Calcium Level 7.9 mg/dL (8.5-10.1) Magnesium Level 1.9 mg/dL (1.8-2.4) Test 10/20/20 07:40 10/20/20 12:26 Sodium Level 145 mmol/L (136-145) Potassium Level 2.8 mmol/L (3.5-5.1) Chloride Level 106 mmol/L (98-107) Carbon Dioxide Level 25 mmol/L (21-32) Anion Gap 14 (6-14) Blood Urea Nitrogen 4 mg/dL (8-26) Creatinine 0.6 mg/dL (0.7-1.3) Estimated GFR (Cockcroft-Gault) 136.1 Glucose Level 93 mg/dL (70-99) Calcium Level 8.2 mg/dL (8.5-10.1) Magnesium Level 1.9 mg/dL (1.8-2.4) Glucose (Fingerstick) 130 mg/dL (70-99) Microbiology 10/13/20 Blood Culture - Final, Complete NO GROWTH AFTER 5 DAYS 10/13/20 Gram Stain Evaluation - Final, Complete 10/13/20 Respiratory Culture - Final, Complete 10/13/20 Urine Culture - Final, Complete 10/13/20 Antimicrobic Susceptibility - Final, Complete Medications Current Medications Sodium Chloride 1,000 ml @ 1,000 mls/hr 1X ONCE IV Last administered on 09/20/20at 14:45; Start 09/20/20 at 14:30; Stop 09/20/20 at 15:29; Status DC Dexamethasone Sodium Phosphate (Decadron) 10 mg 1X ONCE IV Last administered on 09/20/20at 14:50; Start 09/20/20 at 14:30; Stop 09/20/20 at 14:31; Status DC Piperacillin Sod/ Tazobactam Sod 3.375 gm/Sodium Chloride 50 ml @ 100 mls/hr 1X ONCE IV Last administered on 09/20/20at 15:22; Start 09/20/20 at 15:30; Stop 09/20/20 at 15:59; Status DC Acetaminophen (Tylenol) 1,000 mg 1X ONCE PO Last administered on 09/20/20at 15:22; Start 09/20/20 at 15:30; Stop 09/20/20 at 15:31; Status DC Ondansetron HCl (Zofran) 4 mg PRN Q8HRS PRN IVP NAUSEA/VOMITING; Start 09/20/20 at 15:45; Stop 09/20/20 at 17:11; Status DC Morphine Sulfate (Morphine Sulfate) 2 mg PRN Q2HR PRN IVP PAIN; Start 09/20/20 at 15:45; Stop 09/21/20 at 15:44; Status DC Acetaminophen (Tylenol) 650 mg PRN Q4HRS PRN PO FEVER > 100.3'F; Start 09/20/20 at 15:45; Stop 09/21/20 at 15:44; Status Cancel Insulin Human Lispro (HumaLOG) 0-5 UNITS TIDWMEALS SQ Last administered on 09/21/20at 12:34; Start 09/20/20 at 17:00; Stop 09/21/20 at 13:33; Status DC Dextrose (Dextrose 50%-Water Syringe) 12.5 gm PRN Q15MIN PRN IV SEE COMMENTS; Start 09/20/20 at 15:45 Ondansetron HCl (Zofran) 4 mg PRN Q6HRS PRN IVP NAUSEA/VOMITING; Start 09/20/20 at 17:00; Stop 10/13/20 at 07:54; Status DC Calcium Carbonate/ Glycine (Tums) 500 mg PRN Q3HRS PRN PO UPSET STOMACH Last administered on 09/23/20at 11:47; Start 09/20/20 at 17:00 Zolpidem Tartrate (Ambien) 5 mg PRN QHS PRN PO INSOMNIA, MAY REPEAT IN 1HR; Start 09/20/20 at 17:00; Stop 10/13/20 at 07:54; Status DC Info (Non-Icu Electrolyte Protocol) 1 ea PRN DAILY PRN MC SEE COMMENTS; Start 09/20/20 at 17:00; Status Cancel Oxycodone/ Acetaminophen (Percocet 5/325) 1 tab PRN Q4HRS PRN PO MILD PAIN, 1ST CHOICE; Start 09/20/20 at 17:00 Oxycodone/ Acetaminophen (Percocet 5/325) 2 tab PRN Q4HRS PRN PO MODERATE PAIN, SEVERE PAIN; Start 09/20/20 at 17:00 Acetaminophen (Tylenol) 650 mg PRN Q6HRS PRN PO Headaches, Temp > 101.5F Last administered on 10/14/20at 09:03; Start 09/20/20 at 17:00 Senna/Docusate Sodium (Senna Plus) 1 tab BID PO Last administered on 10/11/20at 09:51; Start 09/20/20 at 21:00 Enoxaparin Sodium (Lovenox 40mg Syringe) 40 mg Q12HR SQ Last administered on 10/15/20at 07:46; Start 09/20/20 at 17:00; Stop 10/15/20 at 13:58; Status DC Potassium Chloride (Klor-Con) 40 meq 1X ONCE PO Last administered on 09/20/20at 17:34; Start 09/20/20 at 17:00; Stop 09/20/20 at 17:06; Status DC Piperacillin Sod/ Tazobactam Sod (Zosyn Per Pharmacy) 1 each PRN DAILY PRN MC SEE COMMENTS; Start 09/20/20 at 17:00; Stop 10/01/20 at 08:49; Status DC Azithromycin (Zithromax) 500 mg 1X ONCE PO Last administered on 09/20/20at 17:34; Start 09/20/20 at 17:00; Stop 09/20/20 at 17:07; Status DC Dexamethasone Sodium Phosphate (Decadron) 6 mg DAILY IVP Last administered on 09/28/20at 08:02; Start 09/21/20 at 09:00; Stop 09/29/20 at 07:20; Status DC Guaifenesin/ Codeine Phosphate (Robitussin Ac) 5 ml PRN Q6HRS PRN PO COUGH Last administered on 09/23/20at 11:49; Start 09/20/20 at 17:00 Multivitamins (Thera M Plus) 1 tab DAILY PO Last administered on 09/28/20at 08:02; Start 09/21/20 at 09:00; Stop 09/29/20 at 07:56; Status DC Aspirin (Aspirin Chewable) 81 mg [id number] PO Last administered on 10/14/20at 09:02; Start 09/21/20 at 08:00 Metoprolol Succinate (Toprol Xl) 12.5 mg HS PO Last administered on 09/22/20at 20:28; Start 09/20/20 at 21:00; Stop 09/25/20 at 14:13; Status DC Pantoprazole Sodium (Protonix) 40 mg DAILYAC PO Last administered on 09/23/20 09:28; Start 09/21/20 at 07:30; Stop 09/24/20 at 09:14; Status DC Simvastatin (Zocor) 20 mg QHS PO Last administered on 10/13/20at 20:07; Start 09/20/20 at 21:00 Piperacillin Sod/ Tazobactam Sod 3.375 gm/Sodium Chloride 50 ml @ 100 mls/hr Q6HRS IV Last administered on 10/01/20at 06:00; Start 09/20/20 at 18:00; Stop 10/01/20 at 07:01; Status DC Remdesivir 200 mg/ Sodium Chloride 210 ml @ 210 mls/hr 1X ONCE IV Last administered on 09/20/20at 21:12; Start 09/20/20 at 20:00; Stop 09/20/20 at 20:59; Status DC Remdesivir 100 mg/ Sodium Chloride 230 ml @ 460 mls/hr Q24H IV Last administer ed on 09/24/20at 19:28; Start 09/21/20 at 20:00; Stop 09/24/20 at 20:29; Status DC Insulin Glargine (Lantus Syringe) 20 unit BID SQ Last administered on 10/01/20at 08:34; Start 09/21/20 at 21:00; Stop 10/01/20 at 12:36; Status DC Insulin Human Lispro (HumaLOG) 0-9 UNITS TIDWMEALS SQ Last administered on 09/23/20at 17:28; Start 09/21/20 at 17:00; Stop 09/23/20 at 23:06; Status DC Lactobacillus Rhamnosus (Culturelle) 1 cap BID PO Last administered on 09/23/20 09:28; Start 09/21/20 at 21:00; Stop 09/24/20 at 09:21; Status DC Ascorbic Acid (Vitamin C) 1,000 mg TID PO Last administered on 10/14/20 08:57; Start 09/21/20 at 21:00 Zinc Sulfate (Orazinc) 220 mg DAILY PO Last administered on 10/14/20 08:56; Start 09/22/20 at 09:00 Insulin Human Lispro (HumaLOG) 5 units TIDWMEALS SQ Last administered on 8/15/21at 17:29; Start 09/22/20 at 12:00; Stop 09/24/20 at 09:18; Status DC Albuterol/ Ipratropium (Combivent Respimat 20-100 Mcg) 1 puff PRN QID PRN INH SHORTNESS OF BREATH Last administered on 09/23/20at 09:28; Start 09/22/20 at 12:45 Sterile Water (WATER for RESP) 1,000 ml CONT PRN INH VIA VAPOTHERM DEVICE Last administered on 09/23/20at 14:55; Start 09/23/20 at 12:45; Stop 09/24/20 at 09:20; Status DC Dexmedetomidine HCl 400 mcg/ Sodium Chloride 100 ml @ 0 mls/hr CONT PRN IV PER PROTOCOL Last administered on 10/18/20at 06:02; Start 09/23/20 at 18:00 Sodium Chloride 500 ml @ 500 mls/hr 1X PRN PRN IV SEE COMMENTS; Start 09/23/20 at 18:00 Atropine Sulfate (ATROPINE 0.5mg SYRINGE) 0.5 mg PRN Q5MIN PRN IV SEE COMMENTS; Start 09/23/20 at 18:00 Lorazepam (Ativan Inj) 0.25 mg 1X ONCE IVP Last administered on 09/23/20at 20:23; Start 09/23/20 at 20:15; Stop 09/23/20 at 20:16; Status DC Fentanyl Citrate 30 ml @ 0 mls/hr CONT PRN IV SEE PROTOCOL Last administered on 09/29/20at 14:27; Start 09/23/20 at 21:15; Stop 09/29/20 at 22:00; Status DC Propofol 100 ml @ 0 mls/hr CONT PRN IV PER PROTOCOL Last administered on 10/14/20at 03:25; Start 09/23/20 at 21:15; Stop 10/17/20 at 10:30; Status DC Midazolam HCl 100 ml @ 0 mls/hr CONT PRN IV SEE PROTOCOL Last administered on 10/08/20at 20:48; Start 09/23/20 at 21:15; Stop 10/17/20 at 10:30; Status DC Succinylcholine Chloride (Anectine) 200 mg STK-MED ONCE .ROUTE ; Start 09/23/20 at 21:40; Stop 09/23/20 at 21:40; Status DC Insulin Human Lispro (HumaLOG) 0-9 UNITS Q6HRS SQ Last administered on 10/18/20at 00:36; Start 09/24/20 at 00:00 Succinylcholine Chloride (Anectine) 200 mg 1X ONCE IV Last administered on 09/23/20at 21:44; Start 09/24/20 at 03:00; Stop 09/24/20 at 03:01; Status DC Pantoprazole Sodium (PROTONIX VIAL for IV PUSH) 40 mg DAILY IVP Last administered on 10/20/20at 07:55; Start 09/25/20 at 09:00 Benzocaine (Americaine) 57 spray STK-MED ONCE TP ; Start 09/24/20 at 15:00; Stop 09/25/20 at 10:40; Status DC Potassium Chloride/Water 100 ml @ 100 mls/hr Q1H IV ; Start 09/25/20 at 10:45; Stop 09/25/20 at 12:44; Status UNV Potassium Chloride/Water 100 ml @ 100 mls/hr Q1H IV Last administered on 09/25/20at 14:44; Start 09/25/20 at 11:00; Stop 09/25/20 at 15:01; Status DC Sodium Chloride 1,000 ml @ 50 mls/hr Q20H IV Last administered on 10/09/20at 05:17; Start 09/28/20 at 15:00; Stop 10/10/20 at 09:01; Status DC Dexamethasone Sodium Phosphate (Decadron) 20 mg DAILY IVP Last administered on 09/30/20at 07:48; Start 09/29/20 at 09:00; Stop 10/01/20 at 07:01; Status DC Multivitamins/ Minerals Therapeutic (Centrum Multivit-Mineral Liq) 5 ml DAILY PEG Last administered on 10/14/20at 08:58; Start 09/29/20 at 09:00 Fentanyl Citrate 55 ml @ 1.5 mls/hr CONT PRN IV SEE I/O Last administered on 10/08/20at 10:28; Start 09/29/20 at 21:15; Stop 10/09/20 at 16:29; Status DC Furosemide (Lasix) 20 mg 1X ONCE IVP Last administered on 09/30/20at 11:52; Start 09/30/20 at 11:00; Stop 09/30/20 at 11:01; Status DC Dexamethasone Sodium Phosphate (Decadron) 10 mg DAILY IVP Last administered on 10/03/20at 07:32; Start 10/01/20 at 09:00; Stop 10/03/20 at 11:01; Status DC Insulin Glargine (Lantus Syringe) 25 unit BID SQ Last administered on 10/19/20at 08:46; Start 10/01/20 at 21:00 Nystatin (Nystop) 1 richard BID TP Last administered on 10/19/20at 19:57; Start 10/07/20 at 09:00 Magnesium Sulfate/ Dextrose 100 ml @ 100 mls/hr 1X ONCE IV Last administered on 10/08/20at 11:04; Start 10/08/20 at 11:00; Stop 10/08/20 at 11:59; Status DC Info (Icu Electrolyte Protocol) 1 ea CONT PRN PRN MC SEE COMMENTS; Start 10/08/20 at 10:30 Magnesium Sulfate 50 ml @ 25 mls/hr 1X ONCE IV Last administered on 10/09/20at 08:36; Start 10/09/20 at 07:45; Stop 10/09/20 at 09:44; Status DC Fentanyl Citrate 30 ml @ 1.5 mls/hr CONT PRN PRN IV SEE PROTOCOL Last administered on 10/14/20at 09:20; Start 10/09/20 at 16:30; Stop 10/17/20 at 10:30; Status DC Hydralazine HCl (Apresoline Inj) 10 mg PRN Q4HRS PRN IVP ELEVATED BP, SEE COMMENTS Last administered on 10/20/20at 07:55; Start 10/12/20 at 11:15 Vecuronium Offerle (Norcuron Bolus) 6 mg PRN Q6HRS PRN IV VENTILATOR COMPLIANCE Last administered on 10/12/20at 23:39; Start 10/12/20 at 23:45; Stop 10/17/20 at 10:30; Status DC Haloperidol Lactate (Haldol Inj) 5 mg Q8HRS IVP ; Start 10/13/20 at 08:30; Stop 10/13/20 at 09:42; Status DC Potassium Bicarbonate (Potassium Effervescent Tablet) 40 meq 1X ONCE PO Last administered on 10/13/20at 08:41; Start 10/13/20 at 08:00; Stop 10/13/20 at 08:09; Status DC Enalaprilat (Vasotec Inj) 1.25 mg PRN Q6HRS PRN IVP HYPERTENSION- 2nd choice Last administered on 10/16/20at 12:42; Start 10/13/20 at 08:30 Haloperidol Lactate (Haldol Inj) 2.5 mg PRN Q8HRS PRN IVP Agitation during vent wean Last administered on 10/14/20at 17:05; Start 10/13/20 at 09:45; Stop 10/17/20 at 10:30; Status DC Piperacillin Sod/ Tazobactam Sod 3.375 gm/Sodium Chloride 50 ml @ 100 mls/hr Q6HRS IV Last administered on 10/20/20at 12:11; Start 10/13/20 at 11:00 Piperacillin Sod/ Tazobactam Sod (Zosyn Per Pharmacy) 1 each PRN DAILY PRN MC SEE COMMENTS; Start 10/13/20 at 09:45 Furosemide (Lasix) 40 mg 1X ONCE IVP Last administered on 10/13/20at 15:55; Start 10/13/20 at 14:45; Stop 10/13/20 at 14:46; Status DC Potassium Chloride/Water 100 ml @ 100 mls/hr 1X ONCE IV Last administered on 10/13/20at 15:55; Start 10/13/20 at 15:00; Stop 10/13/20 at 15:59; Status DC Magnesium Sulfate 50 ml @ 25 mls/hr 1X ONCE IV Last administered on 10/14/20at 08:59; Start 10/14/20 at 07:30; Stop 10/14/20 at 09:29; Status DC Potassium Bicarbonate (Potassium Effervescent Tablet) 40 meq 1X ONCE PO Last administered on 10/14/20at 08:57; Start 10/14/20 at 07:30; Stop 10/14/20 at 07:31; Status DC Metoprolol Tartrate (Lopressor Vial) 5 mg PRN Q5MIN PRN IVP TACHYCARDIA Last administered on 10/15/20at 09:17; Start 10/15/20 at 08:45 Fentanyl Citrate (Fentanyl 2ml Vial) 50 mcg PRN Q2HR PRN IVP PAIN Last administered on 10/17/20at 21:40; Start 10/15/20 at 08:45 Diltiazem HCl 125 mg/Sodium Chloride 125 ml @ 5 mls/hr CONT PRN IV SEE I/O RECORD Last administered on 10/15/20at 16:04; Start 10/15/20 at 09:30; Stop 10/16/20 at 12:56; Status DC Furosemide (Lasix) 40 mg DAILY IVP Last administered on 10/17/20at 07:41; Start 10/15/20 at 11:00; Stop 10/17/20 at 09:01; Status DC Potassium Chloride/Water 100 ml @ 100 mls/hr Q1H IV Last administered on 10/15/20at 11:24; Start 10/15/20 at 11:00; Stop 10/15/20 at 12:59; Status DC Digoxin (Lanoxin) 500 mcg 1X ONCE IV Last administered on 10/15/20at 11:11; Start 10/15/20 at 11:15; Stop 10/15/20 at 11:16; Status DC Heparin Sodium/ Dextrose 250 ml @ 0 mls/hr CONT PRN IV PER PROTOCOL Last administered on 10/16/20at 08:17; Start 10/15/20 at 14:00; Stop 10/16/20 at 12:56; Status DC Heparin Sodium (Porcine) (Heparin Sodium) 2,850 unit PRN Q6HRS PRN IV FOR UFH LEVEL LESS THAN 0.2 Last administered on 10/16/20at 11:41; Start 10/15/20 at 14:00; Stop 10/16/20 at 12:56; Status DC Perflutren Protein Type A Microsphe (Optison) 0.66 mg 1X ONCE IV Last administered on 10/16/20at 07:30; Start 10/16/20 at 07:30; Stop 10/16/20 at 07:31; Status DC Perflutren Protein Type A Microsphe (Optison) 0.66 mg STK-MED ONCE IV ; Start 10/16/20 at 07:43; Stop 10/16/20 at 07:43; Status DC Magnesium Sulfate 50 ml @ 25 mls/hr 1X ONCE IV Last administered on 10/16/20at 09:52; Start 10/16/20 at 09:45; Stop 10/16/20 at 11:44; Status DC Enoxaparin Sodium (Lovenox 40mg Syringe) 40 mg Q24H SQ Last administered on 10/20/20at 12:10; Start 10/16/20 at 13:00 Magnesium Sulfate 50 ml @ 25 mls/hr 1X ONCE IV Last administered on 10/17/20at 07:41; Start 10/17/20 at 07:00; Stop 10/17/20 at 08:59; Status DC Metoprolol Tartrate (Lopressor Vial) 5 mg Q6HRS IVP Last administered on 10/17/20at 17:20; Start 10/17/20 at 13:00; Stop 10/19/20 at 12:36; Status DC Nitroglycerin (Nitro-Bid Oint) 1 inch Q6HRS TP Last administered on 10/20/20at 06:35; Start 10/17/20 at 13:00 Furosemide (Lasix) 40 mg DAILY IVP Last administered on 10/19/20at 08:37; Start 10/18/20 at 09:00 Ondansetron HCl (Zofran) 4 mg STK-MED ONCE .ROUTE ; Start 10/17/20 at 14:08; Stop 10/17/20 at 14:09; Status DC Ondansetron HCl (Zofran) 4 mg PRN Q6HRS PRN IVP NAUSEA/VOMITING Last ad ministered on 10/17/20at 14:54; Start 10/17/20 at 14:45 Adenosine (Adenocard) 6 mg 1X ONCE IV Last administered on 10/17/20at 22:00; Start 10/17/20 at 22:00; Stop 10/17/20 at 22:01; Status DC Adenosine (Adenocard) 12 mg 1X ONCE IV Last administered on 10/17/20at 22:15; Start 10/17/20 at 22:15; Stop 10/17/20 at 22:16; Status DC Diltiazem HCl 125 mg/Sodium Chloride 125 ml @ 5 mls/hr CONT PRN IV SEE I/O RECORD Last administered on 10/19/20at 18:34; Start 10/17/20 at 21:45 Diltiazem HCl (Cardizem Iv Push) 10 mg 1X ONCE IVP Last administered on 10/17/20at 22:05; Start 10/17/20 at 22:00; Stop 10/17/20 at 22:01; Status DC Digoxin (Lanoxin) 250 mcg 1X ONCE IV Last administered on 10/17/20at 23:53; Start 10/18/20 at 00:00; Stop 10/18/20 at 00:01; Status DC Digoxin (Lanoxin) 250 mcg 1X ONCE IV Last administered on 10/18/20at 00:46; Start 10/18/20 at 00:30; Stop 10/18/20 at 00:31; Status DC Sodium Chloride 1,000 ml @ 80 mls/hr [id number] IV Last administered on 10/19/20at 17:46; Start 10/18/20 at 06:00; Stop 10/20/20 at 10:30; Status DC Magnesium Sulfate 50 ml @ 25 mls/hr 1X ONCE IV Last administered on 10/18/20at 11:02; Start 10/18/20 at 08:15; Stop 10/18/20 at 10:14; Status DC Potassium Chloride/Water 100 ml @ 50 mls/hr 1X ONCE IV ; Start 10/18/20 at 09:00; Stop 10/18/20 at 08:37; Status DC Potassium Chloride/Water 100 ml @ 50 mls/hr Q2H IV Last administered on 10/18/20at 11:01; Start 10/18/20 at 09:00; Stop 10/18/20 at 12:59; Status DC Amiodarone HCl 150 mg/Dextrose 103 ml @ 600 mls/hr 1X ONCE IV Last administered on 10/18/20at 14:55; Start 10/18/20 at 13:30; Stop 10/18/20 at 13:45; Status DC Amiodarone HCl 450 mg/Dextrose 259 ml @ 0 mls/hr CONT PRN IV SEE I/O RECORD Last administered on 10/19/20at 09:47; Start 10/18/20 at 13:30; Stop 10/19/20 at 13:29; Status DC Acetaminophen (Tylenol Supp) 650 mg PRN Q6HRS PRN AL MILD PAIN / TEMP > 100.3'F Last administered on 10/18/20at 23:49; Start 10/18/20 at 23:45 Magnesium Sulfate 50 ml @ 25 mls/hr 1X ONCE IV Last administered on 10/19/20at 13:37; Start 10/19/20 at 13:30; Stop 10/19/20 at 15:29; Status DC Potassium Chloride/Water 100 ml @ 100 mls/hr Q1H IV Last administered on 10/19/20at 17:36; Start 10/19/20 at 13:30; Stop 10/19/20 at 15:29; Status DC Metoprolol Tartrate (Lopressor Vial) 5 mg PRN Q6HRS PRN IVP SEE COMMENTS; Start 10/19/20 at 12:45 Potassium Chloride/Water 20 ml @ 20 mls/hr Q1H IV ; Start 10/19/20 at 15:30; Stop 10/19/20 at 17:29; Status Cancel Sodium Chloride (Normal Saline Flush) 10 ml QSHIFT PRN IV AFTER MEDS AND BLOOD DRAWS; Start 10/19/20 at 21:45 Sodium Chloride (Normal Saline Flush) 20 ml QSHIFT PRN IV AFTER MEDS AND BLOOD DRAWS; Start 10/19/20 at 21:45 Potassium Chloride/Water 100 ml @ 100 mls/hr Q1H IV Last administered on 10/20/20at 04:30; Start 10/20/20 at 00:30; Stop 10/20/20 at 04:29; Status DC Magnesium Sulfate 50 ml @ 25 mls/hr 1X ONCE IV Last administered on 10/20/20at 00:31; Start 10/20/20 at 00:30; Stop 10/20/20 at 02:29; Status DC Amiodarone HCl 450 mg/Dextrose 259 ml @ 0 mls/hr 1X ONCE IV Last administered on 10/20/20at 01:00; Start 10/20/20 at 01:00; Stop 10/20/20 at 01:01; Status DC Potassium Chloride/Water 100 ml @ 100 mls/hr Q1H IV Last administered on 10/20/20at 13:18; Start 10/20/20 at 09:00; Stop 10/20/20 at 16:59 Amino Acids/ Electrolytes/ Dextrose 1,000 ml @ 80 mls/hr [id number] IV Last adm inistered on 10/20/20at 08:42; Start 10/20/20 at 08:30 Active Scripts Active Reported Icosapent Ethyl 1 Gm Capsule 2 Cap PO BID Metformin Hcl 1,000 Mg Tablet 1 Tab PO BID Rybelsus (Semaglutide) 7 Mg Tablet 1 Tab PO DAILY Farxiga (Dapagliflozin Propanediol) 10 Mg Tablet 1 Tab PO DAILY Trelegy Ellipta 100-62.5-25 (Fluticasone/Umeclidin/Vilanter) 1 Each Blst.w.dev 1 Puff INH DAILY Benzonatate 200 Mg Capsule 1 Cap PO TID PRN Montelukast Sodium 10 Mg Tablet 1 Tab PO DAILY Loratadine 10 Mg Tablet 1 Tab PO DAILY Fluticasone Propionate Nasal [place] (Fluticasone Propionate) 16 Gm [place].susp 1 Sprays NS BID Simvastatin 20 Mg Tablet 1 Tab PO QHS Vitals/I & O Vital Sign - Last 24 Hours 10/19/20 10/19/20 10/19/20 10/19/20 15:21 16:21 17:21 17:37 Pulse 74 70 73 B/P (MAP) 186/61 (102) 167/64 (98) 180/71 (107) 186/64 10/19/20 10/19/20 10/19/20 10/19/20 19:14 19:15 19:40 19:41 Temp 98.8 98.8 Pulse 73 73 Resp 20 B/P (MAP) 179/71 179/71 (107) Pulse Ox 93 O2 Delivery Nasal Cannula Nasal Cannula O2 Flow Rate 5.0 5.0 5.0 10/19/20 10/19/20 10/20/20 10/20/20 23:10 23:45 00:00 00:15 Temp 98.6 98.6 Pulse 78 76 Resp 20 25 B/P (MAP) 140/60 (86) 172/75 (107) Pulse Ox 100 90 89 O2 Delivery BiPAP/CPAP Nasal Cannula Nasal Cannula Nasal Cannula O2 Flow Rate 2.0 2.0 2.0 10/20/20 10/20/20 10/20/20 10/20/20 00:15 00:30 01:00 02:00 Pulse 78 74 76 68 Resp 25 25 25 25 B/P (MAP) 168/55 (92) 168/85 (112) 167/74 (105) 164/69 (100) Pulse Ox 90 90 90 93 O2 Delivery Nasal Cannula Nasal Cannula Nasal Cannula Nasal Cannula O2 Flow Rate 2.0 2.0 2.0 2.0 10/20/20 10/20/20 10/20/20 10/20/20 03:00 04:00 04:00 05:00 Temp 98.1 98.1 Pulse 68 70 68 Resp B/P (MAP) 169/71 (103) 151/57 (88) 156/59 (91) Pulse Ox 93 94 92 O2 Delivery Nasal Cannula Nasal Cannula Nasal Cannula Nasal Cannula O2 Flow Rate 2.0 2.0 2.0 2.0 10/20/20 10/20/20 10/20/20 10/20/20 06:00 06:35 07:00 07:55 Pulse 70 70 70 70 B/P (MAP) 170/69 (102) 167/72 173/64 (100) 180/69 Pulse Ox 92 90 O2 Delivery Nasal Cannula Nasal Cannula O2 Flow Rate 2.0 2.0 10/20/20 10/20/20 10/20/20 10/20/20 08:00 08:00 09:00 10:00 Temp 98.9 98.9 Pulse 70 70 74 Resp B/P (MAP) 180/69 (106) 174/65 (101) 145/71 (95) Pulse Ox 93 97 96 O2 Delivery Nasal Cannula Nasal Cannula Nasal Cannula Nasal Cannula O2 Flow Rate 3.0 3.0 3.0 3.0 10/20/20 10/20/20 10/20/20 10/20/20 11:00 12:00 12:00 13:00 Temp 98.6 98.6 Pulse 74 74 72 Resp 24 B/P (MAP) 159/70 (99) 169/77 (107) 165/71 (102) Pulse Ox 96 94 95 O2 Delivery Nasal Cannula Nasal Cannula Nasal Cannula Nasal Cannula O2 Flow Rate 3.0 3.0 3.0 3.0 Intake and Output 10/19/20 10/19/20 10/20/20 15:00 23:00 07:00 Intake Total 0 ml 100 ml Output Total 3300 ml 500 ml Balance 0 ml -3300 ml -400 ml Justifications for Admission Other Justification BRITTNEE CHANDLER MD Oct 20, 2020 14:30
[2020-10-20] MEDS: SIMVASTATIN 20 MG TABLET PO SCH (20:28)
[2020-10-20 20:36] LABS: MAGNESIUM 1.8 mg/dL (1.8-2.4); POTASSIUM 3.4 mmol/L (3.5-5.1)
[2020-10-21] VITALS (23 sets, daily range): BP systolic 143–177; BP diastolic 52–80
[2020-10-21] MEDS: POTASSIUM CHLORIDE 10MEQ 100 ML IV SCH ×8 (03:04→18:14)
[2020-10-21] MEDS: AMIODARONE 450 MG in IV DEXTROSE 5% 250 ML IV PRN ×2 (03:05→11:06)
[2020-10-21] MEDS ORDERED: AMIODARONE 150 MG in IV DEXTROSE 5% 100ML 100 ML IV ONE (03:30)
[2020-10-21] MEDS: NITROGLYCERIN OINT 1 GM PACKET. TP SCH ×5 (05:21→23:13)
[2020-10-21] MEDS: PIPERACILLIN/TAZOBACTAM 3.375 GM in IV NORMAL SALINE 50ML 50 ML IV SCH ×4 (05:21→23:04)
[2020-10-21 05:27] LABS: BASO # 0.1 x10^3/uL (0.0-0.2); BASO % 1 % (0-3); EOS # 0.5 x10^3/uL (0.0-0.7); EOS % 5 % (0-3); HEMATOCRIT 32.7 % (39.0-53.0); HEMOGLOBIN 11.3 g/dL (13.0-17.5); LYMPH # 2.1 x10^3/uL (1.0-4.8); LYMPH % 23 % (24-48); MEAN CORPUSCULAR HEMOGLOBIN 30 pg (25-35); MEAN CORPUSCULAR HGB CONC 35 g/dL (31-37); MEAN CORPUSCULAR VOLUME 88 fL (79-100); MONO # 0.9 x10^3/uL (0.0-1.1); MONO % 9 % (0-9); NEUT # 5.8 x10^3/uL (1.8-7.7); NEUT % 62 % (31-73); PLATELET COUNT 372 x10^3/uL (140-400); RED BLOOD COUNT 3.74 x10^6/uL (4.30-5.70); RED CELL DISTRIBUTION WIDTH 15.3 % (11.5-14.5); WHITE BLOOD COUNT 9.5 x10^3/uL (4.0-11.0)
[2020-10-21] MEDS: INSULIN LISPRO 300 UNITS/3 ML VIAL. SQ SCH ×4 (05:30→22:56)
[2020-10-21 05:42] LABS: CALCIUM 8.2 mg/dL (8.5-10.1); CREATININE 0.7 mg/dL (0.7-1.3); GFR 113.9; POTASSIUM 3.3 mmol/L (3.5-5.1)
[2020-10-21] MEDS: fentaNYL PF VIAL 100 MCG/2 ML VIAL IVP PRN (06:39)
[2020-10-21] MEDS: ASPIRIN CHEWABLE 81 MG TABLET. PO SCH (08:00)
[2020-10-21] MEDS: MULTIVITAMINS,THERAPEUTIC 5 ML ORAL LIQUID. PEG SCH (08:19)
[2020-10-21] MEDS: ASCORBIC ACID 1,000 MG TABLET PO SCH ×3 (08:19→19:38)
[2020-10-21] MEDS: SENNOSIDES/DOCUSATE 8.6/50MG TABLET. PO SCH ×2 (08:19→19:38)
[2020-10-21] MEDS: ZINC SULFATE 220 MG CAPSULE. PO SCH (08:19)
[2020-10-21] MEDS: FUROSEMIDE 40 MG/4 ML VIAL. IVP SCH (09:00)
[2020-10-21] MEDS: PANTOPRAZOLE IV PUSH 40 MG VIAL. IVP SCH (09:17)
[2020-10-21] MEDS: NYSTATIN TOPICAL POWDER 15GM BOTTLE. TP SCH ×2 (09:17→20:50)
[2020-10-21] MEDS: INSULIN GLARGINE SYRINGE. SQ SCH ×3 (09:19→20:47)
[2020-10-21] MEDS: AA 4.25 %/CALCIUM/LYTES/D5W 1,000 ML IV SCH ×2 (11:06→20:48)
--- NOTE | 2020-10-21 11:15 | PDOC ---
PULMONARY PROGRESS NOTES DATE: 10/21/20 TIME: 11:14 Subjective Patient was transferred to the ICU on the night of 10/19/20 due to ventricular tachycardia and brief asystole for which he required 1 minute of CPR. He was noted to be hypokalemic. Continues to have arrhythmias including torsades last night. Extubated 10/14 Appears very weak. Used BiPAP last night Currently on nasal cannula Cough is weak Vitals Vital Signs Date Time Temp Pulse Resp B/P (MAP) Pulse Ox O2 Delivery O2 Flow Rate FiO2 10/21/20 11:00 57 22 150/62 (91) 100 Nasal Cannula 3.0 10/21/20 08:00 98.5 98.5 General: No acute distress, Lethargic Lungs: Crackles Cardiovascular: S1, S2 Abdomen: Soft, Non-tender Neuro Exam: Alert Extremities: Other Skin: Warm Labs Laboratory Tests Test 10/19/20 12:15 10/19/20 16:57 10/19/20 19:58 10/19/20 23:10 Glucose (Fingerstick) 153 mg/dL (70-99) 133 mg/dL (70-99) 70 mg/dL (70-99) White Blood Count 11.7 x10^3/uL (4.0-11.0) Red Blood Count 4.03 x10^6/uL (4.30-5.70) Hemoglobin 12.0 g/dL (13.0-17.5) Hematocrit 35.4 % (39.0-53.0) Mean Corpuscular Volume 88 fL (79-100) Mean Corpuscular Hemoglobin 30 pg (25-35) Mean Corpuscular Hemoglobin Concent 34 g/dL (31-37) Red Cell Distribution Width 14.8 % (11.5-14.5) Platelet Count 437 x10^3/uL (140-400) Neutrophils (%) (Auto) 64 % (31-73) Lymphocytes (%) (Auto) 22 % (24-48) Monocytes (%) (Auto) 9 % (0-9) Eosinophils (%) (Auto) 3 % (0-3) Basophils (%) (Auto) 1 % (0-3) Neutrophils # (Auto) 7.5 x10^3/uL (1.8-7.7) Lymphocytes # (Auto) 2.6 x10^3/uL (1.0-4.8) Monocytes # (Auto) 1.1 x10^3/uL (0.0-1.1) Eosinophils # (Auto) 0.4 x10^3/uL (0.0-0.7) Basophils # (Auto) 0.1 x10^3/uL (0.0-0.2) O2 Saturation 98 % (92-99) Arterial Blood pH 7.55 (7.35-7.45) Arterial Blood pCO2 at Patient Temp 28 mmHg (35-46) Arterial Blood pO2 at Patient Temp 118 mmHg (65-108) Arterial Blood HCO3 24 mmol/L (21-28) Arterial Blood Base Excess 2 mmol/L (-3-3) FiO2 40% bipap Sodium Level 145 mmol/L (136-145) Potassium Level 2.6 mmol/L (3.5-5.1) Chloride Level 106 mmol/L (98-107) Carbon Dioxide Level 26 mmol/L (21-32) Anion Gap 13 (6-14) Blood Urea Nitrogen 4 mg/dL (8-26) Creatinine 0.7 mg/dL (0.7-1.3) Estimated GFR (Cockcroft-Gault) 113.9 Glucose Level 123 mg/dL (70-99) Calcium Level 7.9 mg/dL (8.5-10.1) Magnesium Level 1.9 mg/dL (1.8-2.4) Test 10/19/20 23:22 10/20/20 07:40 10/20/20 12:26 10/20/20 17:53 Glucose (Fingerstick) 141 mg/dL (70-99) 130 mg/dL (70-99) 154 mg/dL (70-99) Sodium Level 145 mmol/L (136-145) Potassium Level 2.8 mmol/L (3.5-5.1) Chloride Level 106 mmol/L (98-107) Carbon Dioxide Level 25 mmol/L (21-32) Anion Gap 14 (6-14) Blood Urea Nitrogen 4 mg/dL (8-26) Creatinine 0.6 mg/dL (0.7-1.3) Estimated GFR (Cockcroft-Gault) 136.1 Glucose Level 93 mg/dL (70-99) Calcium Level 8.2 mg/dL (8.5-10.1) Magnesium Level 1.9 mg/dL (1.8-2.4) Test 10/20/20 20:15 10/20/20 20:46 10/21/20 05:00 10/21/20 05:20 Potassium Level 3.4 mmol/L (3.5-5.1) 3.3 mmol/L (3.5-5.1) Magnesium Level 1.8 mg/dL (1.8-2.4) 2.0 mg/dL (1.8-2.4) Glucose (Fingerstick) 126 mg/dL (70-99) 144 mg/dL (70-99) White Blood Count 9.5 x10^3/uL (4.0-11.0) Red Blood Count 3.74 x10^6/uL (4.30-5.70) Hemoglobin 11.3 g/dL (13.0-17.5) Hematocrit 32.7 % (39.0-53.0) Mean Corpuscular Volume 88 fL (79-100) Mean Corpuscular Hemoglobin 30 pg (25-35) Mean Corpuscular Hemoglobin Concent 35 g/dL (31-37) Red Cell Distribution Width 15.3 % (11.5-14.5) Platelet Count 372 x10^3/uL (140-400) Neutrophils (%) (Auto) 62 % (31-73) Lymphocytes (%) (Auto) 23 % (24-48) Monocytes (%) (Auto) 9 % (0-9) Eosinophils (%) (Auto) 5 % (0-3) Basophils (%) (Auto) 1 % (0-3) Neutrophils # (Auto) 5.8 x10^3/uL (1.8-7.7) Lymphocytes # (Auto) 2.1 x10^3/uL (1.0-4.8) Monocytes # (Auto) 0.9 x10^3/uL (0.0-1.1) Eosinophils # (Auto) 0.5 x10^3/uL (0.0-0.7) Basophils # (Auto) 0.1 x10^3/uL (0.0-0.2) Sodium Level 140 mmol/L (136-145) Chloride Level 106 mmol/L (98-107) Carbon Dioxide Level 25 mmol/L (21-32) Anion Gap 9 (6-14) Blood Urea Nitrogen 6 mg/dL (8-26) Creatinine 0.7 mg/dL (0.7-1.3) Estimated GFR (Cockcroft-Gault) 113.9 Glucose Level 138 mg/dL (70-99) Calcium Level 8.2 mg/dL (8.5-10.1) Laboratory Tests Test 10/20/20 12:26 10/20/20 17:53 10/20/20 20:15 10/20/20 20:46 Glucose (Fingerstick) 130 mg/dL (70-99) 154 mg/dL (70-99) 126 mg/dL (70-99) Potassium Level 3.4 mmol/L (3.5-5.1) Magnesium Level 1.8 mg/dL (1.8-2.4) Test 10/21/20 05:00 10/21/20 05:20 White Blood Count 9.5 x10^3/uL (4.0-11.0) Red Blood Count 3.74 x10^6/uL (4.30-5.70) Hemoglobin 11.3 g/dL (13.0-17.5) Hematocrit 32.7 % (39.0-53.0) Mean Corpuscular Volume 88 fL (79-100) Mean Corpuscular Hemoglobin 30 pg (25-35) Mean Corpuscular Hemoglobin Concent 35 g/dL (31-37) Red Cell Distribution Width 15.3 % (11.5-14.5) Platelet Count 372 x10^3/uL (140-400) Neutrophils (%) (Auto) 62 % (31-73) Lymphocytes (%) (Auto) 23 % (24-48) Monocytes (%) (Auto) 9 % (0-9) Eosinophils (%) (Auto) 5 % (0-3) Basophils (%) (Auto) 1 % (0-3) Neutrophils # (Auto) 5.8 x10^3/uL (1.8-7.7) Lymphocytes # (Auto) 2.1 x10^3/uL (1.0-4.8) Monocytes # (Auto) 0.9 x10^3/uL (0.0-1.1) Eosinophils # (Auto) 0.5 x10^3/uL (0.0-0.7) Basophils # (Auto) 0.1 x10^3/uL (0.0-0.2) Sodium Level 140 mmol/L (136-145) Potassium Level 3.3 mmol/L (3.5-5.1) Chloride Level 106 mmol/L (98-107) Carbon Dioxide Level 25 mmol/L (21-32) Anion Gap 9 (6-14) Blood Urea Nitrogen 6 mg/dL (8-26) Creatinine 0.7 mg/dL (0.7-1.3) Estimated GFR (Cockcroft-Gault) 113.9 Glucose Level 138 mg/dL (70-99) Calcium Level 8.2 mg/dL (8.5-10.1) Magnesium Level 2.0 mg/dL (1.8-2.4) Glucose (Fingerstick) 144 mg/dL (70-99) Medications Active Scripts Medications Dose Route/Sig Max Daily Dose Days Date Category Icosapent Ethyl 1 Gm Capsule 2 Cap PO BID 09/20/20 Reported Metformin Hcl 1,000 Mg Tablet 1 Tab PO BID 09/20/20 Reported Rybelsus (Semaglutide) 7 Mg Tablet 1 Tab PO DAILY 09/20/20 Reported Farxiga (Dapagliflozin Propanediol) 10 Mg Tablet 1 Tab PO DAILY 09/20/20 Reported Trelegy Ellipta 100-62.5-25 (Fluticasone/Umeclidin/Vilanter) 1 Each Blst.w.dev 1 Puff INH DAILY 09/20/20 Reported Benzonatate 200 Mg Capsule 1 Cap PO TID PRN 09/20/20 Reported Montelukast Sodium 10 Mg Tablet 1 Tab PO DAILY 09/20/20 Reported Loratadine 10 Mg Tablet 1 Tab PO DAILY 09/20/20 Reported Fluticasone Propionate Nasal [place] (Fluticasone Propionate) 16 Gm [place].susp 1 Sprays NS BID 09/20/20 Reported Simvastatin 20 Mg Tablet 1 Tab PO QHS 11/20/15 Reported Impression . 1. Acute hypoxic respiratory failure secondary to COVID-19 viral pneumonia/acute lung injury.---intubated 09/23/20. Status post extubation 10/14 2. Abnormal chest x-ray consistent with mild infiltrates favoring COVID-19 viral pneumonia. 3. Leukopenia and thrombocytopenia due to COVID-19 viral pneumonia.--improved 4. No significant tobacco history. 5. Encephalopathy, multifactorial, prior to intubation 6. Delirium 7. Critical care myopathy 8. New onset A. fib with rapid ventricular response 10/15. Currently on Cardizem drip and also on amiodarone 9. Brief asystole and ventricular tachycardia, likely prostrated by hypokalemia.. Torsades last night as well. Chest x-ray reviewed bilateral pulmonary infiltrates compatible with CHF Plan . Updated 10/21 Discussed with RN and patient's at the bedside. Follow cardiology recommendations regarding ventricular tachycardia. And torsade. Patient is still very weak. He will take a long time to recover. He will be a good candidate for LTAC once cardiac status is stable. Continue nightly BiPAP Monitor x-ray and labs Chest x-ray from 10/17 reviewed no significant change in bilateral opacities Above discussed with at the bedside PT and OT Nutritional support. Follow speech recommendations. Is still not able to eat p.o. consider TPN. I have discussed with patient's that we may need a PEG tube Updated 10/20 Discussed with RN and patient's at the bedside. Currently hypokalemia is being corrected. Follow cardiology recommendations regarding ventricular tachycardia. Patient is still very weak. He will take a long time to recover. He will be a good candidate for LTAC Continue nightly BiPAP Monitor x-ray and labs Chest x-ray from 10/17 reviewed no significant change in bilateral opacities Above discussed with at the bedside PT and OT Nutritional support. Follow speech recommendations. Is still not able to eat p.o. patient patient will have PICC line today and consider TPN. I have discussed with patient's that we may need a PEG tube Updated 10/19 Discussed with RN and patient's at the bedside. Patient is still very weak. He will take a long time to recover. He will be a good candidate for LTAC Continue nightly BiPAP Monitor x-ray and labs Chest x-ray from 10/17 reviewed no significant change in bilateral opacities Above discussed with at the bedside PT and OT Nutritional support. Follow speech recommendations. Is still not able to eat p.o. Updated 10/18 Cussed with RN, transfer out of the intensive care unit Continue nightly BiPAP Monitor x-ray and labs Replace potassium Chest x-ray from 10/17 reviewed no significant change in bilateral opacities Above discussed with at the bedside PT and OT Nutritional support updated 10/17 Patient slowly improving, discussed with , no need for trach Continue Venturi mask BiPAP nightly Follow cardiology input If continues to do well transfer out of the ICU updated 10/16 Patient continues to be critically ill in the intensive care unit, respiratory status tenuous Currently on Venturi mask Continue as needed BiPAP IV Lasix Extubated 10/14 DVT GI prophylaxis Discussed with Total cumulative critical care time of approximately 33 to 35 minutes, reviewing the current documentation, chest x-ray, labs, formulating and impression and plan. updated 10/15 Patient in A. fib currently on IV Cardizem Extubated 10/14, currently on BiPAP holding his own Face mask not sealing very well, will proceed with shaving his whiskers IV Lasix Chest x-ray reviewed slightly worse Discussed case with at the bedside Total cumulative critical care time of 30 minutes with no overlap Labs reviewed, magnesium 1.8 ERIC GOTTLIEB MD Oct 21, 2020 11:15
--- NOTE | 2020-10-21 13:03 | PDOC ---
PROGRESS NOTES Date of Service DATE: 10/21/20 TIME: 13:01 Subjective Subjective Patient seen and examined Objective Objective Vital Signs Date Time Temp Pulse Resp B/P (MAP) Pulse Ox O2 Delivery O2 Flow Rate FiO2 10/21/20 12:43 64 173/80 10/21/20 12:00 98.1 19 99 Nasal Cannula 3.0 98.1 Intake and Output 10/21/20 06:59 Intake Total 4123 ml Output Total 1483 ml Balance 2640 ml Intake Oral 0 ml IV Total 4123 ml Output Urine Total 1483 ml Physical Exam Abdomen: Normal bowel sounds Heart: Regular rate General: mild distress Lungs: Other (Mildly decreased breath sounds) Assessment Assessment Problems Medical Problems: (1) Bilateral pulmonary infiltrates on CXR Status: Acute (2) Fever Status: Acute (3) Hypoxia Status: Acute (4) Lab test positive for detection of COVID-19 virus Status: Acute Acute hypoxic respiratory failure secondary to Covid pneumonia: Initially noted on 09/11/2020. PACS? s/p extubation. Continue management per pulmonary team. Atrial fibrillation with RVR during extubation attempt: maintaining SR. additional episodes of VT over the past 24 hours. Have restarted IV amiodarone. Aggressive replacement of potassium. Coronary artery disease s/p single-vessel coronary artery bypass surgery with GUZMAN to LAD. clinically stable Hypertension: better controlled Hyperlipidemia Diabetes mellitus type 2: Treat per IM Hx of NICM: recovered. EF and WM nl per TTE Moderate pulmonary HTN Encephalopathy; the patient looks and feels mildly better today. Comment Review of Relevant I have reviewed the following items lukasz (where applicable) has been applied. Labs Laboratory Tests Test 10/19/20 16:57 10/19/20 19:58 10/19/20 23:10 10/19/20 23:22 Glucose (Fingerstick) 133 mg/dL (70-99) 70 mg/dL (70-99) 141 mg/dL (70-99) White Blood Count 11.7 x10^3/uL (4.0-11.0) Red Blood Count 4.03 x10^6/uL (4.30-5.70) Hemoglobin 12.0 g/dL (13.0-17.5) Hematocrit 35.4 % (39.0-53.0) Mean Corpuscular Volume 88 fL (79-100) Mean Corpuscular Hemoglobin 30 pg (25-35) Mean Corpuscular Hemoglobin Concent 34 g/dL (31-37) Red Cell Distribution Width 14.8 % (11.5-14.5) Platelet Count 437 x10^3/uL (140-400) Neutrophils (%) (Auto) 64 % (31-73) Lymphocytes (%) (Auto) 22 % (24-48) Monocytes (%) (Auto) 9 % (0-9) Eosinophils (%) (Auto) 3 % (0-3) Basophils (%) (Auto) 1 % (0-3) Neutrophils # (Auto) 7.5 x10^3/uL (1.8-7.7) Lymphocytes # (Auto) 2.6 x10^3/uL (1.0-4.8) Monocytes # (Auto) 1.1 x10^3/uL (0.0-1.1) Eosinophils # (Auto) 0.4 x10^3/uL (0.0-0.7) Basophils # (Auto) 0.1 x10^3/uL (0.0-0.2) O2 Saturation 98 % (92-99) Arterial Blood pH 7.55 (7.35-7.45) Arterial Blood pCO2 at Patient Temp 28 mmHg (35-46) Arterial Blood pO2 at Patient Temp 118 mmHg (65-108) Arterial Blood HCO3 24 mmol/L (21-28) Arterial Blood Base Excess 2 mmol/L (-3-3) FiO2 40% bipap Sodium Level 145 mmol/L (136-145) Potassium Level 2.6 mmol/L (3.5-5.1) Chloride Level 106 mmol/L (98-107) Carbon Dioxide Level 26 mmol/L (21-32) Anion Gap 13 (6-14) Blood Urea Nitrogen 4 mg/dL (8-26) Creatinine 0.7 mg/dL (0.7-1.3) Estimated GFR (Cockcroft-Gault) 113.9 Glucose Level 123 mg/dL (70-99) Calcium Level 7.9 mg/dL (8.5-10.1) Magnesium Level 1.9 mg/dL (1.8-2.4) Test 10/20/20 07:40 10/20/20 12:26 10/20/20 17:53 10/20/20 20:15 Sodium Level 145 mmol/L (136-145) Potassium Level 2.8 mmol/L (3.5-5.1) 3.4 mmol/L (3.5-5.1) Chloride Level 106 mmol/L (98-107) Carbon Dioxide Level 25 mmol/L (21-32) Anion Gap 14 (6-14) Blood Urea Nitrogen 4 mg/dL (8-26) Creatinine 0.6 mg/dL (0.7-1.3) Estimated GFR (Cockcroft-Gault) 136.1 Glucose Level 93 mg/dL (70-99) Calcium Level 8.2 mg/dL (8.5-10.1) Magnesium Level 1.9 mg/dL (1.8-2.4) 1.8 mg/dL (1.8-2.4) Glucose (Fingerstick) 130 mg/dL (70-99) 154 mg/dL (70-99) Test 10/20/20 20:46 10/21/20 05:00 10/21/20 05:20 10/21/20 12:41 Glucose (Fingerstick) 126 mg/dL (70-99) 144 mg/dL (70-99) 136 mg/dL (70-99) White Blood Count 9.5 x10^3/uL (4.0-11.0) Red Blood Count 3.74 x10^6/uL (4.30-5.70) Hemoglobin 11.3 g/dL (13.0-17.5) Hematocrit 32.7 % (39.0-53.0) Mean Corpuscular Volume 88 fL (79-100) Mean Corpuscular Hemoglobin 30 pg (25-35) Mean Corpuscular Hemoglobin Concent 35 g/dL (31-37) Red Cell Distribution Width 15.3 % (11.5-14.5) Platelet Count 372 x10^3/uL (140-400) Neutrophils (%) (Auto) 62 % (31-73) Lymphocytes (%) (Auto) 23 % (24-48) Monocytes (%) (Auto) 9 % (0-9) Eosinophils (%) (Auto) 5 % (0-3) Basophils (%) (Auto) 1 % (0-3) Neutrophils # (Auto) 5.8 x10^3/uL (1.8-7.7) Lymphocytes # (Auto) 2.1 x10^3/uL (1.0-4.8) Monocytes # (Auto) 0.9 x10^3/uL (0.0-1.1) Eosinophils # (Auto) 0.5 x10^3/uL (0.0-0.7) Basophils # (Auto) 0.1 x10^3/uL (0.0-0.2) Sodium Level 140 mmol/L (136-145) Potassium Level 3.3 mmol/L (3.5-5.1) Chloride Level 106 mmol/L (98-107) Carbon Dioxide Level 25 mmol/L (21-32) Anion Gap 9 (6-14) Blood Urea Nitrogen 6 mg/dL (8-26) Creatinine 0.7 mg/dL (0.7-1.3) Estimated GFR (Cockcroft-Gault) 113.9 Glucose Level 138 mg/dL (70-99) Calcium Level 8.2 mg/dL (8.5-10.1) Magnesium Level 2.0 mg/dL (1.8-2.4) Laboratory Tests Test 10/20/20 17:53 10/20/20 20:15 10/20/20 20:46 10/21/20 05:00 Glucose (Fingerstick) 154 mg/dL (70-99) 126 mg/dL (70-99) Potassium Level 3.4 mmol/L (3.5-5.1) 3.3 mmol/L (3.5-5.1) Magnesium Level 1.8 mg/dL (1.8-2.4) 2.0 mg/dL (1.8-2.4) White Blood Count 9.5 x10^3/uL (4.0-11.0) Red Blood Count 3.74 x10^6/uL (4.30-5.70) Hemoglobin 11.3 g/dL (13.0-17.5) Hematocrit 32.7 % (39.0-53.0) Mean Corpuscular Volume 88 fL (79-100) Mean Corpuscular Hemoglobin 30 pg (25-35) Mean Corpuscular Hemoglobin Concent 35 g/dL (31-37) Red Cell Distribution Width 15.3 % (11.5-14.5) Platelet Count 372 x10^3/uL (140-400) Neutrophils (%) (Auto) 62 % (31-73) Lymphocytes (%) (Auto) 23 % (24-48) Monocytes (%) (Auto) 9 % (0-9) Eosinophils (%) (Auto) 5 % (0-3) Basophils (%) (Auto) 1 % (0-3) Neutrophils # (Auto) 5.8 x10^3/uL (1.8-7.7) Lymphocytes # (Auto) 2.1 x10^3/uL (1.0-4.8) Monocytes # (Auto) 0.9 x10^3/uL (0.0-1.1) Eosinophils # (Auto) 0.5 x10^3/uL (0.0-0.7) Basophils # (Auto) 0.1 x10^3/uL (0.0-0.2) Sodium Level 140 mmol/L (136-145) Chloride Level 106 mmol/L (98-107) Carbon Dioxide Level 25 mmol/L (21-32) Anion Gap 9 (6-14) Blood Urea Nitrogen 6 mg/dL (8-26) Creatinine 0.7 mg/dL (0.7-1.3) Estimated GFR (Cockcroft-Gault) 113.9 Glucose Level 138 mg/dL (70-99) Calcium Level 8.2 mg/dL (8.5-10.1) Test 10/21/20 05:20 10/21/20 12:41 Glucose (Fingerstick) 144 mg/dL (70-99) 136 mg/dL (70-99) Microbiology 10/13/20 Blood Culture - Final, Complete NO GROWTH AFTER 5 DAYS 10/13/20 Gram Stain Evaluation - Final, Complete 10/13/20 Respiratory Culture - Final, Complete 10/13/20 Urine Culture - Final, Complete 10/13/20 Antimicrobic Susceptibility - Final, Complete Medications Current Medications Sodium Chloride 1,000 ml @ 1,000 mls/hr 1X ONCE IV Last administered on 09/20/20at 14:45; Start 09/20/20 at 14:30; Stop 09/20/20 at 15:29; Status DC Dexamethasone Sodium Phosphate (Decadron) 10 mg 1X ONCE IV Last administered on 09/20/20at 14:50; Start 09/20/20 at 14:30; Stop 09/20/20 at 14:31; Status DC Piperacillin Sod/ Tazobactam Sod 3.375 gm/Sodium Chloride 50 ml @ 100 mls/hr 1X ONCE IV Last administered on 09/20/20at 15:22; Start 09/20/20 at 15:30; Stop 09/20/20 at 15:59; Status DC Acetaminophen (Tylenol) 1,000 mg 1X ONCE PO Last administered on 09/20/20at 15:22; Start 09/20/20 at 15:30; Stop 09/20/20 at 15:31; Status DC Ondansetron HCl (Zofran) 4 mg PRN Q8HRS PRN IVP NAUSEA/VOMITING; Start 09/20/20 at 15:45; Stop 09/20/20 at 17:11; Status DC Morphine Sulfate (Morphine Sulfate) 2 mg PRN Q2HR PRN IVP PAIN; Start 09/20/20 at 15:45; Stop 09/21/20 at 15:44; Status DC Acetaminophen (Tylenol) 650 mg PRN Q4HRS PRN PO FEVER > 100.3'F; Start 09/20/20 at 15:45; Stop 09/21/20 at 15:44; Status Cancel Insulin Human Lispro (HumaLOG) 0-5 UNITS TIDWMEALS SQ Last administered on 09/21/20at 12:34; Start 09/20/20 at 17:00; Stop 09/21/20 at 13:33; Status DC Dextrose (Dextrose 50%-Water Syringe) 12.5 gm PRN Q15MIN PRN IV SEE COMMENTS; Start 09/20/20 at 15:45 Ondansetron HCl (Zofran) 4 mg PRN Q6HRS PRN IVP NAUSEA/VOMITING; Start 09/20/20 at 17:00; Stop 10/13/20 at 07:54; Status DC Calcium Carbonate/ Glycine (Tums) 500 mg PRN Q3HRS PRN PO UPSET STOMACH Last administered on 09/23/20at 11:47; Start 09/20/20 at 17:00 Zolpidem Tartrate (Ambien) 5 mg PRN QHS PRN PO INSOMNIA, MAY REPEAT IN 1HR; Start 09/20/20 at 17:00; Stop 10/13/20 at 07:54; Status DC Info (Non-Icu Electrolyte Protocol) 1 ea PRN DAILY PRN MC SEE COMMENTS; Start 09/20/20 at 17:00; Status Cancel Oxycodone/ Acetaminophen (Percocet 5/325) 1 tab PRN Q4HRS PRN PO MILD PAIN, 1ST CHOICE; Start 09/20/20 at 17:00 Oxycodone/ Acetaminophen (Percocet 5/325) 2 tab PRN Q4HRS PRN PO MODERATE PAIN, SEVERE PAIN; Start 09/20/20 at 17:00 Acetaminophen (Tylenol) 650 mg PRN Q6HRS PRN PO Headaches, Temp > 101.5F Last administered on 10/14/20at 09:03; Start 09/20/20 at 17:00 Senna/Docusate Sodium (Senna Plus) 1 tab BID PO Last administered on 10/11/20at 09:51; Start 09/20/20 at 21:00 Enoxaparin Sodium (Lovenox 40mg Syringe) 40 mg Q12HR SQ Last administered on 10/15/20at 07:46; Start 09/20/20 at 17:00; Stop 10/15/20 at 13:58; Status DC Potassium Chloride (Klor-Con) 40 meq 1X ONCE PO Last administered on 09/20/20at 17:34; Start 09/20/20 at 17:00; Stop 09/20/20 at 17:06; Status DC Piperacillin Sod/ Tazobactam Sod (Zosyn Per Pharmacy) 1 each PRN DAILY PRN MC SEE COMMENTS; Start 09/20/20 at 17:00; Stop 10/01/20 at 08:49; Status DC Azithromycin (Zithromax) 500 mg 1X ONCE PO Last administered on 09/20/20at 17:34; Start 09/20/20 at 17:00; Stop 09/20/20 at 17:07; Status DC Dexamethasone Sodium Phosphate (Decadron) 6 mg DAILY IVP Last administered on 09/28/20at 08:02; Start 09/21/20 at 09:00; Stop 09/29/20 at 07:20; Status DC Guaifenesin/ Codeine Phosphate (Robitussin Ac) 5 ml PRN Q6HRS PRN PO COUGH Last administered on 09/23/20at 11:49; Start 09/20/20 at 17:00 Multivitamins (Thera M Plus) 1 tab DAILY PO Last administered on 09/28/20at 08:02; Start 09/21/20 at 09:00; Stop 09/29/20 at 07:56; Status DC Aspirin (Aspirin Chewable) 81 mg [id number] PO Last administered on 10/14/20at 09:02; Start 09/21/20 at 08:00 Metoprolol Succinate (Toprol Xl) 12.5 mg HS PO Last administered on 09/22/20at 20:28; Start 09/20/20 at 21:00; Stop 09/25/20 at 14:13; Status DC Pantoprazole Sodium (Protonix) 40 mg DAILYAC PO Last administered on 09/23/20 09:28; Start 09/21/20 at 07:30; Stop 09/24/20 at 09:14; Status DC Simvastatin (Zocor) 20 mg QHS PO Last administered on 10/13/20at 20:07; Start 09/20/20 at 21:00 Piperacillin Sod/ Tazobactam Sod 3.375 gm/Sodium Chloride 50 ml @ 100 mls/hr Q6HRS IV Last administered on 10/01/20at 06:00; Start 09/20/20 at 18:00; Stop 10/01/20 at 07:01; Status DC Remdesivir 200 mg/ Sodium Chloride 210 ml @ 210 mls/hr 1X ONCE IV Last administered on 09/20/20at 21:12; Start 09/20/20 at 20:00; Stop 09/20/20 at 20:59; Status DC Remdesivir 100 mg/ Sodium Chloride 230 ml @ 460 mls/hr Q24H IV Last administered on 09/24/20at 19:28; Start 09/21/20 at 20:00; Stop 09/24/20 at 20:29; Status DC Insulin Glargine (Lantus Syringe) 20 unit BID SQ Last administered on 10/01/20at 08:34; Start 09/21/20 at 21:00; Stop 10/01/20 at 12:36; Status DC Insulin Human Lispro (HumaLOG) 0-9 UNITS TIDWMEALS SQ Last administered on 09/23/20at 17:28; Start 09/21/20 at 17:00; Stop 09/23/20 at 23:06; Status DC Lactobacillus Rhamnosus (Culturelle) 1 cap BID PO Last administered on 09/23/20 09:28; Start 09/21/20 at 21:00; Stop 09/24/20 at 09:21; Status DC Ascorbic Acid (Vitamin C) 1,000 mg TID PO Last administered on 10/14/20 08:57; Start 09/21/20 at 21:00 Zinc Sulfate (Orazinc) 220 mg DAILY PO Last administered on 10/14/20 08:56; Start 09/22/20 at 09:00 Insulin Human Lispro (HumaLOG) 5 units TIDWMEALS SQ Last administered on 09/23/20 17:29; Start 09/22/20 at 12:00; Stop 09/24/20 at 09:18; Status DC Albuterol/ Ipratropium (Combivent Respimat 20-100 Mcg) 1 puff PRN QID PRN INH SHORTNESS OF BREATH Last administered on 09/23/20at 09:28; Start 09/22/20 at 12:45 Sterile Water (WATER for RESP) 1,000 ml CONT PRN INH VIA VAPOTHERM DEVICE Last administered on 09/23/20at 14:55; Start 09/23/20 at 12:45; Stop 09/24/20 at 09:20; Status DC Dexmedetomidine HCl 400 mcg/ Sodium Chloride 100 ml @ 0 mls/hr CONT PRN IV PER PROTOCOL Last administered on 10/18/20 06:02; Start 09/23/20 at 18:00 Sodium Chloride 500 ml @ 500 mls/hr 1X PRN PRN IV SEE COMMENTS; Start 09/23/20 at 18:00 Atropine Sulfate (ATROPINE 0.5mg SYRINGE) 0.5 mg PRN Q5MIN PRN IV SEE COMMENTS; Start 09/23/20 at 18:00 Lorazepam (Ativan Inj) 0.25 mg 1X ONCE IVP Last administered on 09/23/20at 20:23; Start 09/23/20 at 20:15; Stop 09/23/20 at 20:16; Status DC Fentanyl Citrate 30 ml @ 0 mls/hr CONT PRN IV SEE PROTOCOL Last administered on 09/29/20at 14:27; Start 09/23/20 at 21:15; Stop 09/29/20 at 22:00; Status DC Propofol 100 ml @ 0 mls/hr CONT PRN IV PER PROTOCOL Last administered on 10/14/20at 03:25; Start 09/23/20 at 21:15; Stop 10/17/20 at 10:30; Status DC Midazolam HCl 100 ml @ 0 mls/hr CONT PRN IV SEE PROTOCOL Last administered on 10/08/20at 20:48; Start 09/23/20 at 21:15; Stop 10/17/20 at 10:30; Status DC Succinylcholine Chloride (Anectine) 200 mg STK-MED ONCE .ROUTE ; Start 09/23/20 at 21:40; Stop 09/23/20 at 21:40; Status DC Insulin Human Lispro (HumaLOG) 0-9 UNITS Q6HRS SQ Last administered on 10/20/20at 17:54; Start 09/24/20 at 00:00 Succinylcholine Chloride (Anectine) 200 mg 1X ONCE IV Last administered on 09/23/20at 21:44; Start 09/24/20 at 03:00; Stop 09/24/20 at 03:01; Status DC Pantoprazole Sodium (PROTONIX VIAL for IV PUSH) 40 mg DAILY IVP Last administered on 10/21/20at 09:17; Start 09/25/20 at 09:00 Benzocaine (Americaine) 57 spray STK-MED ONCE TP ; Start 09/24/20 at 15:00; Stop 09/25/20 at 10:40; Status DC Potassium Chloride/Water 100 ml @ 100 mls/hr Q1H IV ; Start 09/25/20 at 10:45; Stop 09/25/20 at 12:44; Status UNV Potassium Chloride/Water 100 ml @ 100 mls/hr Q1H IV Last administered on 09/25/20at 14:44; Start 09/25/20 at 11:00; Stop 09/25/20 at 15:01; Status DC Sodium Chloride 1,000 ml @ 50 mls/hr Q20H IV Last administered on 10/09/20at 05:17; Start 09/28/20 at 15:00; Stop 10/10/20 at 09:01; Status DC Dexamethasone Sodium Phosphate (Decadron) 20 mg DAILY IVP Last administered on 09/30/20at 07:48; Start 09/29/20 at 09:00; Stop 10/01/20 at 07:01; Status DC Multivitamins/ Minerals Therapeutic (Centrum Multivit-Mineral Liq) 5 ml DAILY PEG Last administered on 10/14/20at 08:58; Start 09/29/20 at 09:00 Fentanyl Citrate 55 ml @ 1.5 mls/hr CONT PRN IV SEE I/O Last administered on 10/08/20at 10:28; Start 09/29/20 at 21:15; Stop 10/09/20 at 16:29; Status DC Furosemide (Lasix) 20 mg 1X ONCE IVP Last administered on 09/30/20at 11:52; Start 09/30/20 at 11:00; Stop 09/30/20 at 11:01; Status DC Dexamethasone Sodium Phosphate (Decadron) 10 mg DAILY IVP Last administered on 10/03/20at 07:32; Start 10/01/20 at 09:00; Stop 10/03/20 at 11:01; Status DC Insulin Glargine (Lantus Syringe) 25 unit BID SQ Last administered on 10/21/20at 09:19; Start 10/01/20 at 21:00 Nystatin (Nystop) 1 richard BID TP Last administered on 10/21/20at 09:17; Start 10/07/20 at 09:00 Magnesium Sulfate/ Dextrose 100 ml @ 100 mls/hr 1X ONCE IV Last administered on 10/08/20at 11:04; Start 10/08/20 at 11:00; Stop 10/08/20 at 11:59; Status DC Info (Icu Electrolyte Protocol) 1 ea CONT PRN PRN SEE COMMENTS; Start 10/08/20 at 10:30 Magnesium Sulfate 50 ml @ 25 mls/hr 1X ONCE IV Last administered on 10/09/20at 08:36; Start 10/09/20 at 07:45; Stop 10/09/20 at 09:44; Status DC Fentanyl Citrate 30 ml @ 1.5 mls/hr CONT PRN PRN IV SEE PROTOCOL Last administered on 10/14/20at 09:20; Start 10/09/20 at 16:30; Stop 10/17/20 at 10:30; Status DC Hydralazine HCl (Apresoline Inj) 10 mg PRN Q4HRS PRN IVP ELEVATED BP, SEE COMMENTS Last administered on 10/20/20at 15:37; Start 10/12/20 at 11:15 Vecuronium [place] (Norcuron Bolus) 6 mg PRN Q6HRS PRN IV VENTILATOR COMPLIANCE Last administered on 10/12/20at 23:39; Start 10/12/20 at 23:45; Stop 10/17/20 at 10:30; Status DC Haloperidol Lactate (Haldol Inj) 5 mg Q8HRS IVP ; Start 10/13/20 at 08:30; Stop 10/13/20 at 09:42; Status DC Potassium Bicarbonate (Potassium Effervescent Tablet) 40 meq 1X ONCE PO Last administered on 10/13/20at 08:41; Start 10/13/20 at 08:00; Stop 10/13/20 at 08:09; Status DC Enalaprilat (Vasotec Inj) 1.25 mg PRN Q6HRS PRN IVP HYPERTENSION- 2nd choice Last administered on 10/16/20at 12:42; Start 10/13/20 at 08:30 Haloperidol Lactate (Haldol Inj) 2.5 mg PRN Q8HRS PRN IVP Agitation during vent wean Last administered on 10/14/20at 17:05; Start 10/13/20 at 09:45; Stop 10/17/20 at 10:30; Status DC Piperacillin Sod/ Tazobactam Sod 3.375 gm/Sodium Chloride 50 ml @ 100 mls/hr Q6HRS IV Last administered on 10/21/20at 12:43; Start 10/13/20 at 11:00 Piperacillin Sod/ Tazobactam Sod (Zosyn Per Pharmacy) 1 each PRN DAILY PRN MC SEE COMMENTS; Start 10/13/20 at 09:45 Furosemide (Lasix) 40 mg 1X ONCE IVP Last administered on 10/13/20at 15:55; Start 10/13/20 at 14:45; Stop 10/13/20 at 14:46; Status DC Potassium Chloride/Water 100 ml @ 100 mls/hr 1X ONCE IV Last administered on 10/13/20at 15:55; Start 10/13/20 at 15:00; Stop 10/13/20 at 15:59; Status DC Magnesium Sulfate 50 ml @ 25 mls/hr 1X ONCE IV Last administered on 10/14/20 08:59; Start 10/14/20 at 07:30; Stop 10/14/20 at 09:29; Status DC Potassium Bicarbonate (Potassium Effervescent Tablet) 40 meq 1X ONCE PO Last administered on 10/14/20 08:57; Start 10/14/20 at 07:30; Stop 10/14/20 at 07:31; Status DC Metoprolol Tartrate (Lopressor Vial) 5 mg PRN Q5MIN PRN IVP TACHYCARDIA Last administered on 10/15/20 09:17; Start 10/15/20 at 08:45 Fentanyl Citrate (Fentanyl 2ml Vial) 50 mcg PRN Q2HR PRN IVP PAIN Last administered on 10/21/20at 06:39; Start 10/15/20 at 08:45 Diltiazem HCl 125 mg/Sodium Chloride 125 ml @ 5 mls/hr CONT PRN IV SEE I/O RECORD Last administered on 10/15/20at 16:04; Start 10/15/20 at 09:30; Stop 10/16/20 at 12:56; Status DC Furosemide (Lasix) 40 mg DAILY IVP Last administered on 10/17/20 07:41; Start 10/15/20 at 11:00; Stop 10/17/20 at 09:01; Status DC Potassium Chloride/Water 100 ml @ 100 mls/hr Q1H IV Last administered on 10/15/20at 11:24; Start 10/15/20 at 11:00; Stop 10/15/20 at 12:59; Status DC Digoxin (Lanoxin) 500 mcg 1X ONCE IV Last administered on 10/15/20at 11:11; Start 10/15/20 at 11:15; Stop 10/15/20 at 11:16; Status DC Heparin Sodium/ Dextrose 250 ml @ 0 mls/hr CONT PRN IV PER PROTOCOL Last administered on 10/16/20at 08:17; Start 10/15/20 at 14:00; Stop 10/16/20 at 12:56; Status DC Heparin Sodium (Porcine) (Heparin Sodium) 2,850 unit PRN Q6HRS PRN IV FOR UFH LEVEL LESS THAN 0.2 Last administered on 10/16/20at 11:41; Start 10/15/20 at 14:00; Stop 10/16/20 at 12:56; Status DC Perflutren Protein Type A Microsphe (Optison) 0.66 mg 1X ONCE IV Last administered on 10/16/20at 07:30; Start 10/16/20 at 07:30; Stop 10/16/20 at 07:31; Status DC Perflutren Protein Type A Microsphe (Optison) 0.66 mg STK-MED ONCE IV ; Start 10/16/20 at 07:43; Stop 10/16/20 at 07:43; Status DC Magnesium Sulfate 50 ml @ 25 mls/hr 1X ONCE IV Last administered on 10/16/20at 09:52; Start 10/16/20 at 09:45; Stop 10/16/20 at 11:44; Status DC Enoxaparin Sodium (Lovenox 40mg Syringe) 40 mg Q24H SQ Last administered on 10/20/20at 12:10; Start 10/16/20 at 13:00 Magnesium Sulfate 50 ml @ 25 mls/hr 1X ONCE IV Last administered on 10/17/20at 07:41; Start 10/17/20 at 07:00; Stop 10/17/20 at 08:59; Status DC Metoprolol Tartrate (Lopressor Vial) 5 mg Q6HRS IVP Last administered on 10/17/20at 17:20; Start 10/17/20 at 13:00; Stop 10/19/20 at 12:36; Status DC Nitroglycerin (Nitro-Bid Oint) 1 inch Q6HRS TP Last administered on 10/21/20at 12:43; Start 10/17/20 at 13:00 Furosemide (Lasix) 40 mg DAILY IVP Last administered on 10/19/20at 08:37; Start 10/18/20 at 09:00 Ondansetron HCl (Zofran) 4 mg STK-MED ONCE .ROUTE ; Start 10/17/20 at 14:08; Stop 10/17/20 at 14:09; Status DC Ondansetron HCl (Zofran) 4 mg PRN Q6HRS PRN IVP NAUSEA/VOMITING Last admi nistered on 10/17/20at 14:54; Start 10/17/20 at 14:45 Adenosine (Adenocard) 6 mg 1X ONCE IV Last administered on 10/17/20at 22:00; Start 10/17/20 at 22:00; Stop 10/17/20 at 22:01; Status DC Adenosine (Adenocard) 12 mg 1X ONCE IV Last administered on 10/17/20at 22:15; Start 10/17/20 at 22:15; Stop 10/17/20 at 22:16; Status DC Diltiazem HCl 125 mg/Sodium Chloride 125 ml @ 5 mls/hr CONT PRN IV SEE I/O RECORD Last administered on 10/19/20at 18:34; Start 10/17/20 at 21:45 Diltiazem HCl (Cardizem Iv Push) 10 mg 1X ONCE IVP Last administered on 10/17/20at 22:05; Start 10/17/20 at 22:00; Stop 10/17/20 at 22:01; Status DC Digoxin (Lanoxin) 250 mcg 1X ONCE IV Last administered on 10/17/20at 23:53; Start 10/18/20 at 00:00; Stop 10/18/20 at 00:01; Status DC Digoxin (Lanoxin) 250 mcg 1X ONCE IV Last administered on 10/18/20at 00:46; Start 10/18/20 at 00:30; Stop 10/18/20 at 00:31; Status DC Sodium Chloride 1,000 ml @ 80 mls/hr [id number] IV Last administered on 10/19/20at 17:46; Start 10/18/20 at 06:00; Stop 10/20/20 at 10:30; Status DC Magnesium Sulfate 50 ml @ 25 mls/hr 1X ONCE IV Last administered on 10/18/20at 11:02; Start 10/18/20 at 08:15; Stop 10/18/20 at 10:14; Status DC Potassium Chloride/Water 100 ml @ 50 mls/hr 1X ONCE IV ; Start 10/18/20 at 09:00; Stop 10/18/20 at 08:37; Status DC Potassium Chloride/Water 100 ml @ 50 mls/hr Q2H IV Last administered on 10/18/20at 11:01; Start 10/18/20 at 09:00; Stop 10/18/20 at 12:59; Status DC Amiodarone HCl 150 mg/Dextrose 103 ml @ 600 mls/hr 1X ONCE IV Last administered on 10/18/20at 14:55; Start 10/18/20 at 13:30; Stop 10/18/20 at 13:45; Status DC Amiodarone HCl 450 mg/Dextrose 259 ml @ 0 mls/hr CONT PRN IV SEE I/O RECORD Last administered on 10/19/20at 09:47; Start 10/18/20 at 13:30; Stop 10/19/20 at 13:29; Status DC Acetaminophen (Tylenol Supp) 650 mg PRN Q6HRS PRN VA MILD PAIN / TEMP > 100.3'F Last administered on 10/18/20at 23:49; Start 10/18/20 at 23:45 Magnesium Sulfate 50 ml @ 25 mls/hr 1X ONCE IV Last administered on 10/19/20at 13:37; Start 10/19/20 at 13:30; Stop 10/19/20 at 15:29; Status DC Potassium Chloride/Water 100 ml @ 100 mls/hr Q1H IV Last administered on 10/19/20at 17:36; Start 10/19/20 at 13:30; Stop 10/19/20 at 15:29; Status DC Metoprolol Tartrate (Lopressor Vial) 5 mg PRN Q6HRS PRN IVP SEE COMMENTS; Start 10/19/20 at 12:45 Potassium Chloride/Water 20 ml @ 20 mls/hr Q1H IV ; Start 10/19/20 at 15:30; Stop 10/19/20 at 17:29; Status Cancel Sodium Chloride (Normal Saline Flush) 10 ml QSHIFT PRN IV AFTER MEDS AND BLOOD DRAWS; Start 10/19/20 at 21:45 Sodium Chloride (Normal Saline Flush) 20 ml QSHIFT PRN IV AFTER MEDS AND BLOOD DRAWS; Start 10/19/20 at 21:45 Potassium Chloride/Water 100 ml @ 100 mls/hr Q1H IV Last administered on 10/20/20at 04:30; Start 10/20/20 at 00:30; Stop 10/20/20 at 04:29; Status DC Magnesium Sulfate 50 ml @ 25 mls/hr 1X ONCE IV Last administered on 10/20/20at 00:31; Start 10/20/20 at 00:30; Stop 10/20/20 at 02:29; Status DC Amiodarone HCl 450 mg/Dextrose 259 ml @ 0 mls/hr 1X ONCE IV Last administered on 10/20/20at 01:00; Start 10/20/20 at 01:00; Stop 10/20/20 at 01:01; Status DC Potassium Chloride/Water 100 ml @ 100 mls/hr Q1H IV Last administered on 10/20/20at 16:35; Start 10/20/20 at 09:00; Stop 10/20/20 at 16:59; Status DC Amino Acids/ Electrolytes/ Dextrose 1,000 ml @ 80 mls/hr [id number] IV Last administered on 10/21/20at 11:06; Start 10/20/20 at 08:30 Magnesium Sulfate 50 ml @ 25 mls/hr 1X ONCE IV Last administered on 10/20/20at 20:44; Start 10/20/20 at 21:00; Stop 10/20/20 at 22:59; Status DC Amiodarone HCl 150 mg/Dextrose 103 ml @ 600 mls/hr 1X ONCE IV Last administered on 10/21/20at 03:04; Start 10/21/20 at 03:30; Stop 10/21/20 at 03:40; Status DC Amiodarone HCl 450 mg/Dextrose 259 ml @ 0 mls/hr CONT PRN IV SEE I/O RECORD Last administered on 10/21/20at 11:06; Start 10/21/20 at 03:30; Stop 10/22/20 at 03:29 Potassium Chloride/Water 100 ml @ 100 mls/hr Q1H IV Last administered on 10/21/20at 04:01; Start 10/21/20 at 03:30; Stop 10/21/20 at 05:29; Status DC Potassium Chloride/Water 100 ml @ 100 mls/hr Q1H IV Last administered on 10/21at 12:16; Start 10/21/20 at 11:00; Stop 10/21/20 at 14:59 Potassium Chloride/Water 100 ml @ 100 mls/hr Q1H IV ; Start 10/21/20 at 15:00; Stop 10/21/20 at 16:59 Active Scripts Active Reported Icosapent Ethyl 1 Gm Capsule 2 Cap PO BID Metformin Hcl 1,000 Mg Tablet 1 Tab PO BID Rybelsus (Semaglutide) 7 Mg Tablet 1 Tab PO DAILY Farxiga (Dapagliflozin Propanediol) 10 Mg Tablet 1 Tab PO DAILY Trelegy Ellipta 100-62.5-25 (Fluticasone/Umeclidin/Vilanter) 1 Each Blst.w.dev 1 Puff INH DAILY Benzonatate 200 Mg Capsule 1 Cap PO TID PRN Montelukast Sodium 10 Mg Tablet 1 Tab PO DAILY Loratadine 10 Mg Tablet 1 Tab PO DAILY Fluticasone Propionate Nasal [place] (Fluticasone Propionate) 16 Gm [place].susp 1 Sprays NS BID Simvastatin 20 Mg Tablet 1 Tab PO QHS Vitals/I & O Vital Sign - Last 24 Hours 10/20/20 10/20/20 10/20/20 10/20/20 14:00 15:00 15:37 15:37 Pulse 73 73 73 73 Resp 26 B/P (MAP) 173/74 (107) 170/69 (102) 171/71 171/71 Pulse Ox 94 94 O2 Delivery Nasal Cannula Nasal Cannula O2 Flow Rate 3.0 3.0 10/20/20 10/20/20 10/20/20 10/20/20 16:00 16:00 17:00 17:58 Temp 98.5 98.5 Pulse 74 78 76 Resp 23 17 24 B/P (MAP) 160/67 (98) 171/67 (101) 175/76 (109) Pulse Ox 96 96 94 O2 Delivery Nasal Cannula Nasal Cannula Nasal Cannula Nasal Cannula O2 Flow Rate 3.0 3.0 3.0 3.0 10/20/20 10/20/20 10/20/20 10/20/20 19:00 19:53 20:00 21:00 Temp 98.3 98.3 Pulse 74 68 71 Resp 26 B/P (MAP) 176/77 (110) 180/76 (110) 177/83 (114) Pulse Ox 95 95 94 O2 Delivery Nasal Cannula Nasal Cannula Nasal Cannula Nasal Cannula O2 Flow Rate 3.0 3.0 3.0 3.0 10/20/20 10/20/20 10/20/20 10/21/20 22:00 23:00 23:33 00:01 Pulse 72 63 63 Resp 22 B/P (MAP) 178/73 (108) 176/78 (110) 176/78 Pulse Ox 94 95 O2 Delivery Nasal Cannula Nasal Cannula Nasal Cannula O2 Flow Rate 3.0 3.0 3.0 10/21/20 10/21/20 10/21/20 10/21/20 00:01 01:00 02:00 03:00 Temp 98.2 98.2 Pulse 74 72 65 69 Resp B/P (MAP) 171/68 (102) 153/57 (89) 145/52 (83) 176/72 (106) Pulse Ox 95 94 91 94 O2 Delivery Nasal Cannula Nasal Cannula Nasal Cannula Nasal Cannula O2 Flow Rate 3.0 3.0 3.0 3.0 10/21/20 10/21/20 10/21/20 10/21/20 03:04 04:00 04:00 05:00 Temp 98.7 98.7 Pulse 65 66 Resp B/P (MAP) 176/72 174/75 (108) 172/76 (108) Pulse Ox 94 95 O2 Delivery Nasal Cannula Nasal Cannula Nasal Cannula O2 Flow Rate 3.0 3.0 3.0 10/21/20 10/21/20 10/21/20 10/21/20 05:21 06:00 06:39 07:00 Pulse 61 62 Resp B/P (MAP) 172/76 174/72 (106) 166/76 (106) Pulse Ox 95 96 96 O2 Delivery Nasal Cannula Nasal Cannula Nasal Cannula O2 Flow Rate 3.0 3.0 3.0 10/21/20 10/21/20 10/21/20 10/21/20 07:09 08:00 08:00 09:00 Temp 98.5 98.5 Pulse 68 66 Resp B/P (MAP) 167/76 (106) 160/78 (105) Pulse Ox 100 99 100 O2 Delivery Nasal Cannula Nasal Cannula Nasal Cannula Nasal Cannula O2 Flow Rate 3.0 3.0 3.0 3.0 10/21/20 10/21/20 10/21/20 10/21/20 10:00 11:00 12:00 12:00 Temp 98.1 98.1 Pulse 55 57 64 Resp B/P (MAP) 169/65 (99) 150/62 (91) 173/80 (111) Pulse Ox 99 100 99 O2 Delivery Nasal Cannula Nasal Cannula Nasal Cannula Nasal Cannula O2 Flow Rate 3.0 3.0 3.0 3.0 10/21/20 12:43 Pulse 64 B/P (MAP) 173/80 Intake and Output 10/20/20 10/20/20 10/21/20 14:59 22:59 06:59 Intake Total 50 ml 3920 ml 153 ml Output Total 258 ml 365 ml 860 ml Balance -208 ml 3555 ml -707 ml Justifications for Admission Other Justification BRITTNEE CHANDLER MD Oct 21, 2020 13:03
[2020-10-21] MEDS: ENOXAPARIN 40 MG/0.4 ML SYRINGE. SQ SCH (13:39)
--- NOTE | 2020-10-21 13:54 | PDOC ---
[facility] PROGRESS NOTE Date of Service DOS: DATE: 10/21/20 TIME: 13:51 Chief Complaint Chief Complaint Acute COVID-19 pneumonia Status post brief CODE BLUE Torsades Acute hypoxic respiratory failure Sepsis - due to above Bradycardia Diabetes mellitus type 2 HTN HLD CAD Acute on chronic combined systolic and diastolic CHF h/o Cardiomyopathy - historically EF of 40-45%. History of Present Illness History of Present Illness 10/21/2020 Patient seen and examined in the ICU, his is present she seems to be good support for him, patient is a lot more alert today, he is able to use 1 or 2 word sentences, is only requiring oxygen via nasal cannula, has a swallow study tomorrow morning Discussed with RN, chart reviewed 10/20: Patient seen and examined in the ICU. Currently on 3 L of oxygen per nasal cannula. His Jenni is present. Discussed with RN. Chart reviewed. Patient was resting with NAD. Transferred to ICU last night due to ventricular tachycardia with brief asystole requiring CPR. On 3L O2 per nasal canula. O2 Sat is 97%. Requiring nightly BIPAP with 40% FiO2. IV Potassium was initiated due to potassium level of 2.8. Started on Clinimix. On amiodarone drip, IV fluids, IV zosyn. Plan to place PICC line today. Chest X-ray indicated mild improvement. 10/19/2020 No acute events overnight. Patient saturating 93% on 5 L nasal cannula. Working with physical therapy at the time with at bedside. Definitely improvement since his ICU course. Failed swallow study we'll continue with n.p.o. Potassium of 2.7 and magnesium 1.5 today. Will replace IV electrolytes. Patient's chart, labs, images were reviewed and discussed with RN 10/18/2020 patient seen and examined in the ICU his Jenni is present she has good support for him currently on nasal cannula oxygen at 5 L Amado to bedside drainage rectal tube in place discussed with RN chart reviewed 10/17/2020 Patient seen and examined in the ICU His is present Currently back on BiPAP 25/07 with 40% FiO2 O2 sat is 99% I reviewed the chest x-rays and labs with his Chart reviewed Discussed with RN He remains critically ill Mr Morrissey is a 65-year-old white male w/ PMHx HTN, DM2, HLD, GERD, CAD s/p CABG 2011 presented to ED due to worsening cough and shortness of breath; patient also experiencing vomiting and diarrhea. Patient was recently diagnosed with COVID-19 on September 11 and has been doing well since that until a few days prior to arrival when his symptoms acutely worsened this morning. Has not received Covid vaccine. Close contacts at home have very similar symptoms. 09/21: Patient saturating 98% on 10 L nasal cannula. Increasing O2 requirements may consider pulmonology consult. On remdesivir, steroids 09/22: Patient saturating 91% on 10 L nasal cannula. Shortness of breath with ambulation. Combivent inhaler ordered today. 09/23: Patient is requiring increasing O2 requirements. Saturating 88% on 15 L nonrebreather and also nasal cannula. ICU transfer and intubated. 09/24: In ICU on vent. Afebrile, currently breathing FiO2 100%, PEEP 10. Final dose of remdesivir today. 09/25: Afebrile. On vent with FiO2 80%, PEEP 9. He has completed course of remdesivir. IV steroids for total dose 10 days and IV Zosyn. 09/26: Afebrile. Remains on vent with FiO2 70%, PEEP 8. Completed remdesivir. Continue prophylactic IV Zosyn. 09/27: No acute events overnight. Afebrile. On vent with FiO2 70%, PEEP 8. Cont IV antibiotics and steroids, with taper. Completed remdesivir. 09/28: Afebrile. On vent with FiO2 90%, PEEP 8. Completed remdesivir. Continue IV antibiotics. KUB with good OGT placement 09/29: Afebrile. On vent with increased oxygen requirement, FiO2 100%, PEEP 8. CXR increasing bilateral airspace opacities 09/30: On vent with FiO2 90%, PEEP 8. Afebrile. Steroids have been increased to dexamethasone 20 mg for 5 days, 10 mg for 5 days 10/01: No acute events overnight. Patient saturating 97% on vent settings of 22/500/80/8. Currently sedated and intubated. 10/02: Patient saturating 95% on vent settings of 22/500/75/7. ABG expected at 7.4 3/44/72/28. Currently intubated and sedated. 10/03: No acute events overnight. Patient saturating 94% on vent settings of 22/500/75/7. Improved sugar control. 10/04: Saturating 100% on vent settings of 22/500/65/7. Last ABG show pH of 7.5 //28. Adjustments to vent settings by pulmonology. 10/05: No acute events overnight. Patient saturating 96% on vent settings of 20/500/65/7. Discussed prognosis with family. 10/06: No acute events overnight. Patient saturating 95% on vent settings of 20/500/50/6. No other concerns from nursing at this time. 10/07: No acute events overnight. Patient saturating 96% on vent settings of 20/500/50/6. T-max of 100.3. 10/08: Afebrile overnight. Sedated with propofol Versed and fentanyl PEEP of 6 FiO2 50% ABG 7.4 . Discussed with bedside. 10/09: T-max 100.3 F. Sedated with propofol Versed fentanyl, O2 saturations 96%, ABG 7.4 on FiO2 50% and normal PEEP of 6. D/w bedside. Good UOP 10/10: Afebrile. Sedation wean this morning respirations increased significantly back on sedation. ABG 7.40 FiO2 45% PEEP 6. Discussed with bedside O2 is significantly improving. 10/11: Afebrile. Agitated with sedation wean added Precedex. FiO2 40% PEEP 5. Will attempt sedation wean again today. D/w bedside. 10/12: Chest radiograph improved . ABG 7.4 on 40% FiO2 PEEP 5. Respiratory rate 28 with wean this morning and blood pressure elevated. Will try to wean again later today. Discussed with at bedside 10/13: Febrile 101.1 F overnight. Very agitated with attempted wean with increased BP ABG 7.471/38.4/71.2 on FiO2 40% PEEP 5. Respiratory blood and urine cultures for fever. Zosyn for coverage for possible VAP, f/u CXR 10/14: Afebrile. O2 saturations improved with furosemide. Urine output 2.7 L. K3.3 mag 1.7 WBC 7.6, Hb 9.3, platelets 158. Starting vent wean. Cultures pending, still on zosyn 10/13 Discussed with Pulmonology adding low-dose Haldol with vent weans will hold on propofol as QT sees around 470. Will maintain telemetry. As needed hydralazine and Vasotec for elevated blood pressure. Discussed with bedside CC time 34 minutes 10/15/2020: Patient seen and examined in the ICU with family present. Currently on BiPAP 16/16, 50% FiO2, and rate 20. Sedated with dexmedetomidine. On diltiazem drip. Amado to BSD. Rectal bag present. Triple lumen PICC in the right arm and right heel ulcer present. Chest x-ray from today showed stable diffuse bilateral opacities.Discussed with RN. Chart reviewed. 10/16/2020 Patient seen and examined in the ICU His is present Currently on Ventimask 50% FiO2 Chart reviewed Discussed with RN He is still quite ill Vitals/I&O Vitals/I&O: Vital Signs Date Time Temp Pulse Resp B/P (MAP) Pulse Ox O2 Delivery O2 Flow Rate FiO2 10/21/20 13:00 76 24 153/65 (94) 100 Nasal Cannula 3.0 10/21/20 12:00 98.1 98.1 I & O 10/20/20 10/20/20 10/21/20 15:00 23:00 07:00 Intake Total 3920 ml 153 ml Output Total 258 ml 415 ml 810 ml Balance -258 ml 3505 ml -657 ml Physical Exam General: mild distress Heart: Regular rate Lungs: Crackles Abdomen: Normal bowel sounds Extremities: No cyanosis Skin: No rashes, No significant lesion Labs Labs: Laboratory Tests Test 10/20/20 17:53 10/20/20 20:15 10/20/20 20:46 10/21/20 05:00 Glucose (Fingerstick) 154 mg/dL (70-99) 126 mg/dL (70-99) Potassium Level 3.4 mmol/L (3.5-5.1) 3.3 mmol/L (3.5-5.1) Magnesium Level 1.8 mg/dL (1.8-2.4) 2.0 mg/dL (1.8-2.4) White Blood Count 9.5 x10^3/uL (4.0-11.0) Red Blood Count 3.74 x10^6/uL (4.30-5.70) Hemoglobin 11.3 g/dL (13.0-17.5) Hematocrit 32.7 % (39.0-53.0) Mean Corpuscular Volume 88 fL (79-100) Mean Corpuscular Hemoglobin 30 pg (25-35) Mean Corpuscular Hemoglobin Concent 35 g/dL (31-37) Red Cell Distribution Width 15.3 % (11.5-14.5) Platelet Count 372 x10^3/uL (140-400) Neutrophils (%) (Auto) 62 % (31-73) Lymphocytes (%) (Auto) 23 % (24-48) Monocytes (%) (Auto) 9 % (0-9) Eosinophils (%) (Auto) 5 % (0-3) Basophils (%) (Auto) 1 % (0-3) Neutrophils # (Auto) 5.8 x10^3/uL (1.8-7.7) Lymphocytes # (Auto) 2.1 x10^3/uL (1.0-4.8) Monocytes # (Auto) 0.9 x10^3/uL (0.0-1.1) Eosinophils # (Auto) 0.5 x10^3/uL (0.0-0.7) Basophils # (Auto) 0.1 x10^3/uL (0.0-0.2) Sodium Level 140 mmol/L (136-145) Chloride Level 106 mmol/L (98-107) Carbon Dioxide Level 25 mmol/L (21-32) Anion Gap 9 (6-14) Blood Urea Nitrogen 6 mg/dL (8-26) Creatinine 0.7 mg/dL (0.7-1.3) Estimated GFR (Cockcroft-Gault) 113.9 Glucose Level 138 mg/dL (70-99) Calcium Level 8.2 mg/dL (8.5-10.1) Test 10/21/20 05:20 10/21/20 12:41 Glucose (Fingerstick) 144 mg/dL (70-99) 136 mg/dL (70-99) Assessment and Plan Assessmemt and Plan Problems Medical Problems: (1) Bilateral pulmonary infiltrates on CXR Status: Acute (2) Fever Status: Acute (3) Hypoxia Status: Acute (4) Lab test positive for detection of COVID-19 virus Status: Acute Assessment: Acute COVID-19 pneumonia Status post brief CODE BLUE [place]orsades Acute hypoxic respiratory failure Sepsis - due to above Bradycardia Diabetes mellitus type 2 HTN HLD CAD Acute on chronic combined systolic and diastolic CHF h/o Cardiomyopathy - historically EF of 40-45%. Plan: 1. Continue COVD-19 Protocol (IV zosyn, robitussin, multivitamin with minerals, aspirin, O2) -Remdesivir course 09/20-09/24 -Dexamethasone course 09/20-10/03 2. Continue ICU monitoring 3. Appreciate subspecialty input from cardiology and pulmonology 4. Place PICC line today 5. Continue Clinimix 6. Continue potassium supplement until hypokalemia corrected 7. Continue nightly BIPAP 8. Monitor X-ray and labs 9. PPX - Lovenox for DVT prophylaxis 10. Protonix GI prophylaxis 11. Full code O2 per nasal cannula for now as needed BiPAP He has a swallow study scheduled for tomorrow Surrogate decision maker is the Jenni Morrissey Prognosis guarded but improving CC time 33 minutes Comment Review of Relevant I have reviewed the following items lukasz (where applicable) has been applied. Medications: Current Medications Medications (Trade) Dose Ordered Sig/Khadar Route PRN Reason Start Time Stop Time Status Last Admin Dose Admin Magnesium Sulfate 50 ml @ 25 mls/hr 1X ONCE IV 10/20/20 21:00 10/20/20 22:59 DC 10/20/20 20:44 Amiodarone HCl 150 mg/Dextrose 103 ml @ 600 mls/hr 1X ONCE IV 10/21/20 03:30 10/21/20 03:40 DC 10/21/20 03:04 Amiodarone HCl 450 mg/Dextrose 259 ml @ 0 mls/hr CONT PRN IV SEE I/O RECORD 10/21/20 03:30 10/22/20 03:29 10/21/20 11:06 Potassium Chloride/Water 100 ml @ 100 mls/hr Q1H IV 10/21/20 03:30 10/21/20 05:29 DC 10/21/20 04:01 Potassium Chloride/Water 100 ml @ 100 mls/hr Q1H IV 10/21/20 11:00 10/21/20 14:59 10/21/20 13:33 Justifications for Admission Other Justification MARLEY JIMENEZ III DO Oct 21, 2020 13:54
[2020-10-21 13:55] LABS: CALCIUM 8.4 mg/dL (8.5-10.1); CREATININE 0.7 mg/dL (0.7-1.3); GFR 113.9; POTASSIUM 3.8 mmol/L (3.5-5.1)
[2020-10-21] MEDS: SIMVASTATIN 20 MG TABLET PO SCH (19:38)
[2020-10-22] VITALS (13 sets, daily range): BP systolic 121–178; BP diastolic 52–79
[2020-10-22] MEDS: AMIODARONE 450 MG in IV DEXTROSE 5% 250 ML IV PRN ×2 (03:54→21:11)
[2020-10-22] MEDS: NITROGLYCERIN OINT 1 GM PACKET. TP SCH ×3 (05:10→17:52)
[2020-10-22] MEDS: PIPERACILLIN/TAZOBACTAM 3.375 GM in IV NORMAL SALINE 50ML 50 ML IV SCH ×3 (05:11→17:51)
[2020-10-22] MEDS: INSULIN LISPRO 300 UNITS/3 ML VIAL. SQ SCH ×3 (05:13→17:07)
[2020-10-22 07:42] LABS: CALCIUM 8.2 mg/dL (8.5-10.1); CREATININE 0.8 mg/dL (0.7-1.3); GFR 97.6; POTASSIUM 3.2 mmol/L (3.5-5.1)
[2020-10-22] MEDS: ASPIRIN CHEWABLE 81 MG TABLET. PO SCH (08:00)
[2020-10-22] MEDS: SENNOSIDES/DOCUSATE 8.6/50MG TABLET. PO SCH ×2 (08:03→21:00)
[2020-10-22] MEDS: MULTIVITAMINS,THERAPEUTIC 5 ML ORAL LIQUID. PEG SCH (08:03)
[2020-10-22] MEDS: ZINC SULFATE 220 MG CAPSULE. PO SCH (08:03)
[2020-10-22] MEDS: ASCORBIC ACID 1,000 MG TABLET PO SCH ×3 (08:04→21:00)
--- NOTE | 2020-10-22 08:38 | PDOC ---
[facility] PROGRESS NOTE Date of Service DOS: DATE: 10/22/20 TIME: 08:28 Chief Complaint Chief Complaint Acute COVID-19 pneumonia Status post brief CODE BLUE [place] Acute hypoxic respiratory failure Sepsis - due to above Bradycardia Diabetes mellitus type 2 HTN HLD CAD Acute on chronic combined systolic and diastolic CHF h/o Cardiomyopathy - historically EF of 40-45%. History of Present Illness History of Present Illness 10/22/2020: Afebrile. Currently breathing on 2 L nasal cannula. Continue amiodarone infusion, per cardiology. ST following to assess swallow safety; possible video swallow. Intubated 09/23-10/14. Likely looking at long recovery time; would be good candidate for LTAC once stable from cardiac standpoint. Continue nightly BiPAP. Critical care time 30 minutes spent reviewing charts, reviewing labs, reviewing imaging, discussion with RN. 10/21/2020 Patient seen and examined in the ICU, his is present she seems to be good support for him, patient is a lot more alert today, he is able to use 1 or 2 w ord sentences, is only requiring oxygen via nasal cannula, has a swallow study tomorrow morning Discussed with RN, chart reviewed 10/20: Patient seen and examined in the ICU. Currently on 3 L of oxygen per nasal cannula. His Jenni is present. Discussed with RN. Chart reviewed. Patient was resting with NAD. Transferred to ICU last night due to ventricular tachycardia with brief asystole requiring CPR. On 3L O2 per nasal canula. O2 Sat is 97%. Requiring nightly BIPAP with 40% FiO2. IV Potassium was initiated due to potassium level of 2.8. Started on Clinimix. On amiodarone drip, IV fluids, IV zosyn. Plan to place PICC line today. Chest X-ray indicated mild improvement. 10/19/2020 No acute events overnight. Patient saturating 93% on 5 L nasal cannula. Working with physical therapy at the time with at bedside. Definitely improvement since his ICU course. Failed swallow study we'll continue with n.p.o. Potassium of 2.7 and magnesium 1.5 today. Will replace IV electrolytes. Patient's chart, labs, images were reviewed and discussed with RN 10/18/2020 patient seen and examined in the ICU his Jenni is present she has good support for him currently on nasal cannula oxygen at 5 L Amado to bedside drainage rectal tube in place discussed with RN chart reviewed 10/17/2020 Patient seen and examined in the ICU His is present Currently back on BiPAP 25/07 with 40% FiO2 O2 sat is 99% I reviewed the chest x-rays and labs with his Chart reviewed Discussed with RN He remains critically ill Mr Morrissey is a 65-year-old white male w/ PMHx HTN, DM2, HLD, GERD, CAD s/p CABG 2011 presented to ED due to worsening cough and shortness of breath; patient also experiencing vomiting and diarrhea. Patient was recently diagnosed with COVID-19 on September 11 and has been doing well since that until a few days prior to arrival when his symptoms acutely worsened this morning. Has not received Covid vaccine. Close contacts at home have very similar symptoms. 09/21: Patient saturating 98% on 10 L nasal cannula. Increasing O2 requirements may consider pulmonology consult. On remdesivir, steroids 09/22: Patient saturating 91% on 10 L nasal cannula. Shortness of breath with ambulation. Combivent inhaler ordered today. 09/23: Patient is requiring increasing O2 requirements. Saturating 88% on 15 L nonrebreather and also nasal cannula. ICU transfer and intubated. 09/24: In ICU on vent. Afebrile, currently breathing FiO2 100%, PEEP 10. Final dose of remdesivir today. 09/25: Afebrile. On vent with FiO2 80%, PEEP 9. He has completed course of remdesivir. IV steroids for total dose 10 days and IV Zosyn. 09/26: Afebrile. Remains on vent with FiO2 70%, PEEP 8. Completed remdesivir. Continue prophylactic IV Zosyn. 09/27: No acute events overnight. Afebrile. On vent with FiO2 70%, PEEP 8. Cont IV antibiotics and steroids, with taper. Completed remdesivir. 09/28: Afebrile. On vent with FiO2 90%, PEEP 8. Completed remdesivir. Continue IV antibiotics. KUB with good OGT placement 09/29: Afebrile. On vent with increased oxygen requirement, FiO2 100%, PEEP 8. CXR increasing bilateral airspace opacities 09/30: On vent with FiO2 90%, PEEP 8. Afebrile. Steroids have been increased to dexamethasone 20 mg for 5 days, 10 mg for 5 days 10/01: No acute events overnight. Patient saturating 97% on vent settings of 22/500/80/8. Currently sedated and intubated. 10/02: Patient saturating 95% on vent settings of 22/500/75/7. ABG expected at 7.4 /72/28. Currently intubated and sedated. 10/03: No acute events overnight. Patient saturating 94% on vent settings of 22/500/75/7. Improved sugar control. 10/04: Saturating 100% on vent settings of 22/500/65/7. Last ABG show pH of 7.5 //28. Adjustments to vent settings by pulmonology. 10/05: No acute events overnight. Patient saturating 96% on vent settings of 20/500/65/7. Discussed prognosis with family. 10/06: No acute events overnight. Patient saturating 95% on vent settings of 20/500/50/6. No other concerns from nursing at this time. 10/07: No acute events overnight. Patient saturating 96% on vent settings of 20/500/50/6. T-max of 100.3. 10/08: Afebrile overnight. Sedated with propofol Versed and fentanyl PEEP of 6 F iO2 50% ABG 7.4 . Discussed with bedside. 10/09: T-max 100.3 F. Sedated with propofol Versed fentanyl, O2 saturations 96%, ABG 7.4 on FiO2 50% and normal PEEP of 6. D/w bedside. Good UOP 10/10: Afebrile. Sedation wean this morning respirations increased significantly back on sedation. ABG 7.40 FiO2 45% PEEP 6. Discussed with bedside O2 is significantly improving. 10/11: Afebrile. Agitated with sedation wean added Precedex. FiO2 40% PEEP 5. Will attempt sedation wean again today. D/w bedside. 10/12: Chest radiograph improved . ABG 7.4 / on 40% FiO2 PEEP 5. Respiratory rate 28 with wean this morning and blood pressure elevated. Will try to wean again later today. Discussed with at bedside 10/13: Febrile 101.1 F overnight. Very agitated with attempted wean with increased BP ABG 7.471/38.4/71.2 on FiO2 40% PEEP 5. Respiratory blood and urine cultures for fever. Zosyn for coverage for possible VAP, f/u CXR 10/14: Afebrile. O2 saturations improved with furosemide. Urine output 2.7 L. K3.3 mag 1.7 WBC 7.6, Hb 9.3, platelets 158. Starting vent wean. Cultures pending, still on zosyn 10/13 Discussed with Pulmonology adding low-dose Haldol with vent weans will hold on propofol as QT sees around 470. Will maintain telemetry. As needed hydralazine and Vasotec for elevated blood pressure. Discussed with bedside CC time 34 minutes 10/15/2020: Patient seen and examined in the ICU with family present. Currently on BiPAP , 50% FiO2, and rate 20. Sedated with dexmedetomidine. On diltiazem drip. Amado to BSD. Rectal bag present. Triple lumen PICC in the right arm and right heel ulcer present. Chest x-ray from today showed stable diffuse bilateral opacities.Discussed with RN. Chart reviewed. 10/16/2020 Patient seen and examined in the ICU His is present Currently on Ventimask 50% FiO2 Chart reviewed Discussed with RN He is still quite ill Vitals/I&O Vitals/I&O: Vital Signs Date Time Temp Pulse Resp B/P (MAP) Pulse Ox O2 Delivery O2 Flow Rate FiO2 10/22/20 06:04 54 20 131/59 (83) 95 Nasal Cannula 2.0 10/22/20 04:12 98.5 98.5 I & O 10/21/20 10/21/20 10/22/20 15:00 23:00 07:00 Intake Total 50 ml 2113 ml 1130 ml Output Total 1005 ml 2245 ml 1275 ml Balance -955 ml -132 ml -145 ml Physical Exam General: mild distress Heart: Regular rate Lungs: Crackles Abdomen: Normal bowel sounds Extremities: No cyanosis Skin: No rashes, No significant lesion Labs Labs: Laboratory Tests Test 10/21/20 12:41 10/21/20 13:30 10/21/20 18:51 10/21/20 19:50 Glucose (Fingerstick) 136 mg/dL (70-99) 129 mg/dL (70-99) 116 mg/dL (70-99) Sodium Level 139 mmol/L (136-145) Potassium Level 3.8 mmol/L (3.5-5.1) Chloride Level 105 mmol/L (98-107) Carbon Dioxide Level 24 mmol/L (21-32) Anion Gap 10 (6-14) Blood Urea Nitrogen 7 mg/dL (8-26) Creatinine 0.7 mg/dL (0.7-1.3) Estimated GFR (Cockcroft-Gault) 113.9 Glucose Level 132 mg/dL (70-99) Calcium Level 8.4 mg/dL (8.5-10.1) Test 10/22/20 05:12 10/22/20 06:20 Glucose (Fingerstick) 115 mg/dL (70-99) Sodium Level 141 mmol/L (136-145) Potassium Level 3.2 mmol/L (3.5-5.1) Chloride Level 106 mmol/L (98-107) Carbon Dioxide Level 26 mmol/L (21-32) Anion Gap 9 (6-14) Blood Urea Nitrogen 6 mg/dL (8-26) Creatinine 0.8 mg/dL (0.7-1.3) Estimated GFR (Cockcroft-Gault) 97.6 Glucose Level 102 mg/dL (70-99) Calcium Level 8.2 mg/dL (8.5-10.1) Magnesium Level 1.9 mg/dL (1.8-2.4) Assessment and Plan Assessmemt and Plan Problems Medical Problems: (1) Bilateral pulmonary infiltrates on CXR Status: Acute (2) Fever Status: Acute (3) Hypoxia Status: Acute (4) Lab test positive for detection of COVID-19 virus Status: Acute Comment Review of Relevant I have reviewed the following items lukasz (where applicable) has been applied. Medications: Current Medications Medications (Trade) Dose Ordered Sig/Khadar Route PRN Reason Start Time Stop Time Status Last Admin Dose Admin Potassium Chloride/Water 100 ml @ 100 mls/hr Q1H IV 10/21/20 11:00 10/21/20 14:59 DC 10/21/20 14:44 Potassium Chloride/Water 100 ml @ 100 mls/hr Q1H IV 10/21/20 15:00 10/21/20 16:59 DC 10/21/20 18:14 Amiodarone HCl 450 mg/Dextrose 259 ml @ 0 mls/hr CONT PRN IV SEE I/O RECORD 10/22/20 02:00 10/23/20 01:59 10/22/20 03:54 Justifications for Admission Other Justification FATOU LAMB MD Oct 22, 2020 08:38
--- NOTE | 2020-10-22 08:40 | RAD ---
EXAM: Chest, single view. HISTORY: Respiratory failure. COMPARISON: 10/19/2020 FINDINGS: A frontal view of the chest is obtained. There is stable diffuse interstitial infiltrate wi th suspected trace pleural effusions. This is likely superimposed on chronic interstitial changes. Th ere is a stable prominent cardiac silhouette and evidence of prior CABG. There has been removal of a right PICC. IMPRESSION: Stable diffuse interstitial infiltrate and suspected trace pleural effusions superimposed on suspected chronic interstitial changes. Electronically signed by: Eleonora Coe MD (10/22/2020 8:37 AM) [id number]
[2020-10-22] MEDS: INSULIN GLARGINE SYRINGE. SQ SCH ×2 (09:00→21:09)
[2020-10-22] MEDS: FUROSEMIDE 40 MG/4 ML VIAL. IVP SCH (09:00)
--- NOTE | 2020-10-22 10:27 | PDOC ---
PULMONARY PROGRESS NOTES DATE: 10/22/20 TIME: 10:25 Subjective Patient was transferred to the ICU on the night of 10/19/20 due to ventricular tachycardia and brief asystole for which he required 1 minute of CPR. He was noted to be hypokalemic. No further arrhythmias reported Extubated 10/14 Appears very weak. Currently on nasal cannula Cough is weak Vitals Vital Signs Date Time Temp Pulse Resp B/P (MAP) Pulse Ox O2 Delivery O2 Flow Rate FiO2 10/22/20 06:04 54 20 131/59 (83) 95 Nasal Cannula 2.0 10/22/20 04:12 98.5 98.5 General: Alert, No acute distress Lungs: Crackles Cardiovascular: S1, S2 Abdomen: Soft, Non-tender Neuro Exam: Alert Extremities: Other Skin: Warm Labs Laboratory Tests Test 10/20/20 12:26 10/20/20 17:53 10/20/20 20:15 10/20/20 20:46 Glucose (Fingerstick) 130 mg/dL (70-99) 154 mg/dL (70-99) 126 mg/dL (70-99) Potassium Level 3.4 mmol/L (3.5-5.1) Magnesium Level 1.8 mg/dL (1.8-2.4) Test 10/21/20 05:00 10/21/20 05:20 10/21/20 12:41 10/21/20 13:30 White Blood Count 9.5 x10^3/uL (4.0-11.0) Red Blood Count 3.74 x10^6/uL (4.30-5.70) Hemoglobin 11.3 g/dL (13.0-17.5) Hematocrit 32.7 % (39.0-53.0) Mean Corpuscular Volume 88 fL (79-100) Mean Corpuscular Hemoglobin 30 pg (25-35) Mean Corpuscular Hemoglobin Concent 35 g/dL (31-37) Red Cell Distribution Width 15.3 % (11.5-14.5) Platelet Count 372 x10^3/uL (140-400) Neutrophils (%) (Auto) 62 % (31-73) Lymphocytes (%) (Auto) 23 % (24-48) Monocytes (%) (Auto) 9 % (0-9) Eosinophils (%) (Auto) 5 % (0-3) Basophils (%) (Auto) 1 % (0-3) Neutrophils # (Auto) 5.8 x10^3/uL (1.8-7.7) Lymphocytes # (Auto) 2.1 x10^3/uL (1.0-4.8) Monocytes # (Auto) 0.9 x10^3/uL (0.0-1.1) Eosinophils # (Auto) 0.5 x10^3/uL (0.0-0.7) Basophils # (Auto) 0.1 x10^3/uL (0.0-0.2) Sodium Level 140 mmol/L (136-145) 139 mmol/L (136-145) Potassium Level 3.3 mmol/L (3.5-5.1) 3.8 mmol/L (3.5-5.1) Chloride Level 106 mmol/L (98-107) 105 mmol/L (98-107) Carbon Dioxide Level 25 mmol/L (21-32) 24 mmol/L (21-32) Anion Gap 9 (6-14) 10 (6-14) Blood Urea Nitrogen 6 mg/dL (8-26) 7 mg/dL (8-26) Creatinine 0.7 mg/dL (0.7-1.3) 0.7 mg/dL (0.7-1.3) Estimated GFR (Cockcroft-Gault) 113.9 113.9 Glucose Level 138 mg/dL (70-99) 132 mg/dL (70-99) Calcium Level 8.2 mg/dL (8.5-10.1) 8.4 mg/dL (8.5-10.1) Magnesium Level 2.0 mg/dL (1.8-2.4) Glucose (Fingerstick) 144 mg/dL (70-99) 136 mg/dL (70-99) Test 10/21/20 18:51 10/21/20 19:50 10/22/20 05:12 10/22/20 06:20 Glucose (Fingerstick) 129 mg/dL (70-99) 116 mg/dL (70-99) 115 mg/dL (70-99) Sodium Level 141 mmol/L (136-145) Potassium Level 3.2 mmol/L (3.5-5.1) Chloride Level 106 mmol/L (98-107) Carbon Dioxide Level 26 mmol/L (21-32) Anion Gap 9 (6-14) Blood Urea Nitrogen 6 mg/dL (8-26) Creatinine 0.8 mg/dL (0.7-1.3) Estimated GFR (Cockcroft-Gault) 97.6 Glucose Level 102 mg/dL (70-99) Calcium Level 8.2 mg/dL (8.5-10.1) Magnesium Level 1.9 mg/dL (1.8-2.4) Laboratory Tests Test 10/21/20 12:41 10/21/20 13:30 10/21/20 18:51 10/21/20 19:50 Glucose (Fingerstick) 136 mg/dL (70-99) 129 mg/dL (70-99) 116 mg/dL (70-99) Sodium Level 139 mmol/L (136-145) Potassium Level 3.8 mmol/L (3.5-5.1) Chloride Level 105 mmol/L (98-107) Carbon Dioxide Level 24 mmol/L (21-32) Anion Gap 10 (6-14) Blood Urea Nitrogen 7 mg/dL (8-26) Creatinine 0.7 mg/dL (0.7-1.3) Estimated GFR (Cockcroft-Gault) 113.9 Glucose Level 132 mg/dL (70-99) Calcium Level 8.4 mg/dL (8.5-10.1) Test 10/22/20 05:12 10/22/20 06:20 Glucose (Fingerstick) 115 mg/dL (70-99) Sodium Level 141 mmol/L (136-145) Potassium Level 3.2 mmol/L (3.5-5.1) Chloride Level 106 mmol/L (98-107) Carbon Dioxide Level 26 mmol/L (21-32) Anion Gap 9 (6-14) Blood Urea Nitrogen 6 mg/dL (8-26) Creatinine 0.8 mg/dL (0.7-1.3) Estimated GFR (Cockcroft-Gault) 97.6 Glucose Level 102 mg/dL (70-99) Calcium Level 8.2 mg/dL (8.5-10.1) Magnesium Level 1.9 mg/dL (1.8-2.4) Medications Active Scripts Medications Dose Route/Sig Max Daily Dose Days Date Category Icosapent Ethyl 1 Gm Capsule 2 Cap PO BID 09/20/20 Reported Metformin Hcl 1,000 Mg Tablet 1 Tab PO BID 09/20/20 Reported Rybelsus (Semaglutide) 7 Mg Tablet 1 Tab PO DAILY 09/20/20 Reported Farxiga (Dapagliflozin Propanediol) 10 Mg Tablet 1 Tab PO DAILY 09/20/20 Reported Trelegy Ellipta 100-62.5-25 (Fluticasone/Umeclidin/Vilanter) 1 Each Blst.w.dev 1 Puff INH DAILY 09/20/20 Reported Benzonatate 200 Mg Capsule 1 Cap PO TID PRN 09/20/20 Reported Montelukast Sodium 10 Mg Tablet 1 Tab PO DAILY 09/20/20 Reported Loratadine 10 Mg Tablet 1 Tab PO DAILY 09/20/20 Reported Fluticasone Propionate Nasal [place] (Fluticasone Propionate) 16 Gm [place].susp 1 Sprays NS BID 09/20/20 Reported Simvastatin 20 Mg Tablet 1 Tab PO QHS 11/20/15 Reported Impression . 1. Acute hypoxic respiratory failure secondary to COVID-19 viral pneumonia/acute lung injury.---intubated 09/23/20. Status post extubation 10/14 2. Abnormal chest x-ray consistent with mild infiltrates favoring COVID-19 viral pneumonia. 3. Leukopenia and thrombocytopenia due to COVID-19 viral pneumonia.--improved 4. No significant tobacco history. 5. Encephalopathy, multifactorial, prior to intubation 6. Delirium 7. Critical care myopathy 8. New onset A. fib with rapid ventricular response 10/15. Currently on Cardizem drip and also on amiodarone 9. Brief asystole and ventricular tachycardia, likely prostrated by hypokalemia.. Torsades as well Chest x-ray reviewed bilateral pulmonary infiltrates compatible with CHF Plan . Updated 10/22 Discussed with RN and patient's at the bedside. Follow cardiology recommendations regarding ventricular tachycardia/ torsade. Patient is more awake today He will be a good candidate for LTAC once cardiac status is stable. Continue nightly BiPAP Monitor x-ray and labs Chest x-ray from 10/17 reviewed no significant change in bilateral opacities Above discussed with at the bedside PT and OT Nutritional support. Follow speech recommendations. May be able to tolerate p.o. today I have discussed with patient's that we may need a PEG tube Updated 10/21 Discussed with RN and patient's at the bedside. Follow cardiology recommendations regarding ventricular tachycardia. And torsade. Patient is still very weak. He will take a long time to recover. He will be a good candidate for LTAC once cardiac status is stable. Continue nightly BiPAP Monitor x-ray and labs Chest x-ray from 10/17 reviewed no significant change in bilateral opacities Above discussed with at the bedside PT and OT Nutritional support. Follow speech recommendations. Is still not able to eat p.o. consider TPN. I have discussed with patient's that we may need a PEG tube Updated 10/20 Discussed with RN and patient's at the bedside. Currently hypokalemia is being corrected. Follow cardiology recommendations regarding ventricular tachycardia. Patient is still very weak. He will take a long time to recover. He will be a good candidate for LTAC Continue nightly BiPAP Monitor x-ray and labs Chest x-ray from 10/17 reviewed no significant change in bilateral opacities Above discussed with at the bedside PT and OT Nutritional support. Follow speech recommendations. Is still not able to eat p.o. patient patient will have PICC line today and consider TPN. I have discussed with patient's that we may need a PEG tube Updated 10/19 Discussed with RN and patient's at the bedside. Patient is still very weak. He will take a long time to recover. He will be a good candidate for LTAC Continue nightly BiPAP Monitor x-ray and labs Chest x-ray from 10/17 reviewed no significant change in bilateral opacities Above discussed with at the bedside PT and OT Nutritional support. Follow speech recommendations. Is still not able to eat p.o. Updated 10/18 Cussed with RN, transfer out of the intensive care unit Continue nightly BiPAP Monitor x-ray and labs Replace potassium Chest x-ray from 10/17 reviewed no significant change in bilateral opacities Above discussed with at the bedside PT and OT Nutritional support updated 10/17 Patient slowly improving, discussed with , no need for trach Continue Venturi mask BiPAP nightly Follow cardiology input If continues to do well transfer out of the ICU updated 10/16 Patient continues to be critically ill in the intensive care unit, respiratory status tenuous Currently on Venturi mask Continue as needed BiPAP IV Lasix Extubated 10/14 DVT GI prophylaxis Discussed with Total cumulative critical care time of approximately 33 to 35 minutes, reviewing the current documentation, chest x-ray, labs, formulating and impression and plan. updated 10/15 Patient in A. fib currently on IV Cardizem Extubated 10/14, currently on BiPAP holding his own Face mask not sealing very well, will proceed with shaving his whiskers IV Lasix Chest x-ray reviewed slightly worse Discussed case with at the bedside Total cumulative critical care time of 30 minutes with no overlap Labs reviewed, magnesium 1.8 ERIC GOTTLIEB MD Oct 22, 2020 10:27
[2020-10-22] MEDS: AA 4.25 %/CALCIUM/LYTES/D5W 1,000 ML IV SCH (11:31)
[2020-10-22] MEDS: ENOXAPARIN 40 MG/0.4 ML SYRINGE. SQ SCH (11:35)
[2020-10-22] MEDS: PANTOPRAZOLE IV PUSH 40 MG VIAL. IVP SCH (11:37)
--- NOTE | 2020-10-22 11:41 | RAD ---
EXAM: Chest, single view. HISTORY: PICC line placement. COMPARISON: 10/22/2020 FINDINGS: A frontal view of the chest is obtained. There is stable diffuse interstitial infiltrate guillen perimposed on suspected chronic interstitial changes. No pleural effusion or pneumothorax is seen. Th ere is a stable prominent cardiac silhouette and evidence of prior CABG. There is a new left PICC wit h the tip overlying expected location of the superior cavoatrial junction. IMPRESSION: 1. Left PICC with the tip overlying the expected location of the superior cavoatrial junction. 2. Stable diffuse infiltrate. Electronically signed by: Eleonora Coe MD (10/22/2020 11:38 AM) [id number]
[2020-10-22] MEDS: POTASSIUM CHLORIDE 20MEQ 100 ML IV SCH ×2 (11:45→13:02)
[2020-10-22] MEDS: NYSTATIN TOPICAL POWDER 15GM BOTTLE. TP SCH ×2 (11:53→21:00)
--- NOTE | 2020-10-22 12:15 | PDOC ---
BHAVANA STEVENSON [employer] ADVISOR 10/22/20 1215: CARDIO Progress Notes Date and Time Date of Service 10/22/20 Time of Evaluation 1048 Subjective Subjective: No Chest Pain, No shortness of breath, No Palpitations Vitals Vitals Vital Signs Date Time Temp Pulse Resp B/P (MAP) Pulse Ox O2 Delivery O2 Flow Rate FiO2 10/22/20 06:04 54 20 131/59 (83) 95 Nasal Cannula 2.0 10/22/20 04:12 98.5 98.5 Weight Weight [ ] Input and Output Intake and Output Intake and Output 10/22/20 07:00 Intake Total 3293 ml Output Total 4525 ml Balance -1232 ml Intake Oral 0 ml IV Total 3293 ml Output Urine Total 4525 ml Laboratory Labs Laboratory Tests Test 10/21/20 12:41 10/21/20 13:30 10/21/20 18:51 10/21/20 19:50 Glucose (Fingerstick) 136 mg/dL (70-99) 129 mg/dL (70-99) 116 mg/dL (70-99) Sodium Level 139 mmol/L (136-145) Potassium Level 3.8 mmol/L (3.5-5.1) Chloride Level 105 mmol/L (98-107) Carbon Dioxide Level 24 mmol/L (21-32) Anion Gap 10 (6-14) Blood Urea Nitrogen 7 mg/dL (8-26) Creatinine 0.7 mg/dL (0.7-1.3) Estimated GFR (Cockcroft-Gault) 113.9 Glucose Level 132 mg/dL (70-99) Calcium Level 8.4 mg/dL (8.5-10.1) Test 10/22/20 05:12 10/22/20 06:20 10/22/20 11:54 Glucose (Fingerstick) 115 mg/dL (70-99) 104 mg/dL (70-99) Sodium Level 141 mmol/L (136-145) Potassium Level 3.2 mmol/L (3.5-5.1) Chloride Level 106 mmol/L (98-107) Carbon Dioxide Level 26 mmol/L (21-32) Anion Gap 9 (6-14) Blood Urea Nitrogen 6 mg/dL (8-26) Creatinine 0.8 mg/dL (0.7-1.3) Estimated GFR (Cockcroft-Gault) 97.6 Glucose Level 102 mg/dL (70-99) Calcium Level 8.2 mg/dL (8.5-10.1) Magnesium Level 1.9 mg/dL (1.8-2.4) Microbiology Micro Microbiology 10/13/20 Blood Culture - Final, Complete NO GROWTH AFTER 5 DAYS 10/13/20 Gram Stain Evaluation - Final, Complete 10/13/20 Respiratory Culture - Final, Complete 10/13/20 Urine Culture - Final, Complete 10/13/20 Antimicrobic Susceptibility - Final, Complete Physical Exam HEENT: Neck Supple W Full Motion Chest: Symmetric LUNGS: Other (NC) Heart: RRR (SR) Abdomen: Soft N/T Extremities: Other (1+ bilateral LE pitting edema) Neurology: alert, follow commands Assessment Assessment 1. Acute hypoxic respiratory failure secondary to Covid pneumonia: Initially noted on 09/11/2020. s/p extubation. 2. Atrial fibrillation with RVR during extubation attempt: presently SR. Noted with frequent PVC's and bursts of NSVT overnight. on IV amiodarone. 3. Coronary artery disease s/p single-vessel coronary artery bypass surgery with GUZMAN to LAD. clinically stable 4. Hypertension: better controlled 5. Hyperlipidemia 6. Diabetes mellitus type 2: Treat per IM 7. Hx of NICM: recovered. EF and WM nl per TTE 8. Moderate pulmonary HTN 9. Encephalopathy; improved 10. Dysphagia; failed swallow study. Video swallow tomorrow 11. Hyperkalemia; replaced Recommendations Continue IV amiodarone; transition to oral when able to take PO ASA therapy for stroke prophylaxis Outpatient event monitor to guide therapy. Secondary prevention Ongoing lung optimization as per pulmonary Justicifation of Admission Dx: Justifications for Admission: Justification of Admission Dx: Yes NIKHIL CALDERA MD 10/22/20 1533: CARDIO Progress Notes Assessment Assessment Patient seen and examined. Agree with SMOKING PIPE COATER's assessment and plan. AF in the setting of extubation attempts, presently maintaining sinus rhythm. Telemetry showed few brief episodes of NSVT. Replace potassium. Continue amiodarone. CAD status clinically stable. Okay for transfer out of ICU. BHAVANA STEVENSON APRN Oct 22, 2020 12:15 NIKHIL CALDERA MD Oct 22, 2020 15:33
--- NOTE | 2020-10-22 14:39 | NUR ---
SS following up with discharge planning. SS reviewed pt chart and discussed with pt RN. Pt is currently requiring oxygen at two liters nasal canula. COVID19 recovered. Pt NPO and on Clinimix. Pt on Amiodarone. Pt on IV Lasix and IV Zosyn. Pt accepted at [facility], ; fax [phone]. Insurance authorization received. Clinical updates phoned and faxed to [facility]. SS will continue to follow for discharge planning.
[2020-10-22] MEDS: SIMVASTATIN 20 MG TABLET PO SCH (21:00)
[2020-10-22] MEDS: ONDANSETRON PF 4 MG/2 ML VIAL. IVP PRN (21:49)
[2020-10-22] MEDS: fentaNYL PF VIAL 100 MCG/2 ML VIAL IVP PRN (21:49)
[2020-10-23] MEDS: PIPERACILLIN/TAZOBACTAM 3.375 GM in IV NORMAL SALINE 50ML 50 ML IV SCH ×4 (00:17→18:00)
[2020-10-23] MEDS: AA 4.25 %/CALCIUM/LYTES/D5W 1,000 ML IV SCH ×2 (00:17→12:25)
[2020-10-23] MEDS: NITROGLYCERIN OINT 1 GM PACKET. TP SCH ×2 (00:18→06:15)
[2020-10-23 03:25] VITALS: BP 155/68
[2020-10-23] MEDS: INSULIN LISPRO 300 UNITS/3 ML VIAL. SQ SCH ×4 (06:00→18:00)
[2020-10-23] MEDS: fentaNYL PF VIAL 100 MCG/2 ML VIAL IVP PRN (06:20)
[2020-10-23 07:00] VITALS: BP 149/66
[2020-10-23] MEDS: PANTOPRAZOLE IV PUSH 40 MG VIAL. IVP SCH (08:10)
--- NOTE | 2020-10-23 08:30 | PDOC ---
PROGRESS NOTES Date of Service: DATE: 10/23/20 TIME: 08:29 Chief Complaint Chief Complaint Acute COVID-19 pneumonia Status post brief CODE BLUE [place] Acute hypoxic respiratory failure Sepsis - due to above Bradycardia Diabetes mellitus type 2 HTN HLD CAD Acute on chronic combined systolic and diastolic CHF h/o Cardiomyopathy - historically EF of 40-45%. History of Present Illness History of Present Illness 10/23/2020: Afebrile. Currently breathing on 2 L nasal cannula. amiodarone infusion, per cardiology. ST following to assess swallow safety; possible video swallow. Intubated 09/23- 10/14. Likely looking at long recovery time; would be good candidate for LTAC once stable from cardiac standpoint. Continue nightly BiPAP. 26 minutes spent reviewing charts, reviewing labs, reviewing imaging, discussion with RN. ACCEPTED AT [facility] TOMORROW Patient was transferred to the ICU on the night of 10/19/20 due to ventricular tachycardia and brief asystole for which he required 1 minute of CPR. 10/22/2020: Afebrile. Currently breathing on 2 L nasal cannula. Continue amiodarone infusion, per cardiology. ST following to assess swallow safety; possible video swallow. Intubated 09/23-10/14. Likely looking at long recovery time; would be good candidate for LTAC once stable from cardiac standpoint. Continue nightly BiPAP. Critical care time 30 minutes spent reviewing charts, reviewing labs, reviewing imaging, discussion with RN. 10/21/2020 Patient seen and examined in the ICU, his is present she seems to be good support for him, patient is a lot more alert today, he is able to use 1 or 2 word sentences, is only requiring oxygen via nasal cannula, has a swallow study tomorrow morning Discussed with RN, chart reviewed 10/20: Patient seen and examined in the ICU. Currently on 3 L of oxygen per nasal cannula. His Jenni is present. Discussed with RN. Chart reviewed. Patient was resting with NAD. Transferred to ICU last night due to ventricular tachycardia with brief asystole requiring CPR. On 3L O2 per nasal canula. O2 Sat is 97%. Requiring nightly BIPAP with 40% FiO2. IV Potassium was initiated due to potassium level of 2.8. Started on Clinimix. On amiodarone drip, IV fluids, IV zosyn. Plan to place PICC line today. Chest X-ray indicated mild improvement. 10/19/2020 No acute events overnight. Patient saturating 93% on 5 L nasal cannula. Working with physical therapy at the time with at bedside. Definitely improvement since his ICU course. Failed swallow study we'll continue with n.p.o. Potassium of 2.7 and magnesium 1.5 today. Will replace IV electrolytes. Patient's chart, labs, images were reviewed and discussed with RN 10/18/2020 patient seen and examined in the ICU his Jenni is present she has good support for him currently on nasal cannula oxygen at 5 L Amado to bedside drainage rectal tube in place discussed with RN chart reviewed 10/17/2020 Patient seen and examined in the ICU His is present Currently back on BiPAP 25/07 with 40% FiO2 O2 sat is 99% I reviewed the chest x-rays and labs with his Chart reviewed Discussed with RN He remains critically ill Mr Morrissey is a 65-year-old white male w/ PMHx HTN, DM2, HLD, GERD, CAD s/p CABG 2011 presented to ED due to worsening cough and shortness of breath; patient also experiencing vomiting and diarrhea. Patient was recently diagnosed with COVID-19 on September 11 and has been doing well since that until a few days prior to arrival when his symptoms acutely worsened this morning. Has not received Covid vaccine. Close contacts at home have very similar symptoms. 09/21: Patient saturating 98% on 10 L nasal cannula. Increasing O2 requirements may consider pulmonology consult. On remdesivir, steroids 09/22: Patient saturating 91% on 10 L nasal cannula. Shortness of breath with ambulation. Combivent inhaler ordered today. 09/23: Patient is requiring increasing O2 requirements. Saturating 88% on 15 L nonrebreather and also nasal cannula. ICU transfer and intubated. 09/24: In ICU on vent. Afebrile, currently breathing FiO2 100%, PEEP 10. Final dose of remdesivir today. 09/25: Afebrile. On vent with FiO2 80%, PEEP 9. He has completed course of remdesivir. IV steroids for total dose 10 days and IV Zosyn. 09/26: Afebrile. Remains on vent with FiO2 70%, PEEP 8. Completed remdesivir. Continue prophylactic IV Zosyn. 09/27: No acute events overnight. Afebrile. On vent with FiO2 70%, PEEP 8. Cont IV antibiotics and steroids, with taper. Completed remdesivir. 09/28: Afebrile. On vent with FiO2 90%, PEEP 8. Completed remdesivir. Continue IV antibiotics. KUB with good OGT placement 09/29: Afebrile. On vent with increased oxygen requirement, FiO2 100%, PEEP 8. CXR increasing bilateral airspace opacities 09/30: On vent with FiO2 90%, PEEP 8. Afebrile. Steroids have been increased to dexamethasone 20 mg for 5 days, 10 mg for 5 days 10/01: No acute events overnight. Patient saturating 97% on vent settings of 22/500/80/8. Currently sedated and intubated. 10/02: Patient saturating 95% on vent settings of 22/500/75/7. ABG expected at 7.4 /72/28. Currently intubated and sedated. 10/03: No acute events overnight. Patient saturating 94% on vent settings of 22/500/75/7. Improved sugar control. 10/04: Saturating 100% on vent settings of 22/500/65/7. Last ABG show pH of 7.5 //28. Adjustments to vent settings by pulmonology. 10/05: No acute events overnight. Patient saturating 96% on vent settings of 20/500/65/7. Discussed prognosis with family. 10/06: No acute events overnight. Patient saturating 95% on vent settings of 20/500/50/6. No other concerns from nursing at this time. 10/07: No acute events overnight. Patient saturating 96% on vent settings of 20/500/50/6. T-max of 100.3. 10/08: Afebrile overnight. Sedated with propofol Versed and fentanyl PEEP of 6 FiO2 50% ABG 7.4 /. Discussed with bedside. 10/09: T-max 100.3 F. Sedated with propofol Versed fentanyl, O2 saturations 96%, ABG 7.4 / on FiO2 50% and normal PEEP of 6. D/w bedside. Good UOP 10/10: Afebrile. Sedation wean this morning respirations increased significantly back on sedation. ABG 7.40 343/92 FiO2 45% PEEP 6. Discussed with bedside O2 is significantly improving. 10/11: Afebrile. Agitated with sedation wean added Precedex. FiO2 40% PEEP 5. Will attempt sedation wean again today. D/w bedside. 10/12: Chest radiograph improved . ABG 7.4 8/35/95 on 40% FiO2 PEEP 5. Respiratory rate 28 with wean this morning and blood pressure elevated. Will try to wean again later today. Discussed with at bedside 10/13: Febrile 101.1 F overnight. Very agitated with attempted wean with in creased BP ABG 7.471/38.4/71.2 on FiO2 40% PEEP 5. Respiratory blood and urine cultures for fever. Zosyn for coverage for possible VAP, f/u CXR 10/14: Afebrile. O2 saturations improved with furosemide. Urine output 2.7 L. K3.3 mag 1.7 WBC 7.6, Hb 9.3, platelets 158. Starting vent wean. Cultures pending, still on zosyn 10/13 Discussed with Pulmonology adding low-dose Haldol with vent weans will hold on propofol as QT sees around 470. Will maintain telemetry. As needed hydralazine and Vasotec for elevated blood pressure. Discussed with bedside CC time 34 minutes 10/15/2020: Patient seen and examined in the ICU with family present. Currently on BiPAP 16/16, 50% FiO2, and rate 20. Sedated with dexmedetomidine. On diltiazem drip. Amado to BSD. Rectal bag present. Triple lumen PICC in the right arm and right heel ulcer present. Chest x-ray from today showed stable diffuse bilateral opacities.Discussed with RN. Chart reviewed. 10/16/2020 Patient seen and examined in the ICU His is present Currently on Ventimask 50% FiO2 Chart reviewed Discussed with RN He is still quite ill Vitals Vitals Vital Signs Date Time Temp Pulse Resp B/P (MAP) Pulse Ox O2 Delivery O2 Flow Rate FiO2 10/23/20 06:20 18 99 Nasal Cannula 2.0 10/23/20 06:15 69 155/68 10/23/20 03:25 98.0 98.0 Physical Exam General: mild distress Heart: Regular rate Lungs: Crackles Abdomen: Normal bowel sounds Extremities: No cyanosis Skin: No rashes, No significant lesion Labs LABS Laboratory Tests Test 10/22/20 11:54 10/22/20 15:05 10/22/20 16:51 10/22/20 21:02 Glucose (Fingerstick) 104 mg/dL (70-99) 136 mg/dL (70-99) 139 mg/dL (70-99) Potassium Level 3.6 mmol/L (3.5-5.1) Test 10/23/20 00:14 10/23/20 06:12 Glucose (Fingerstick) 147 mg/dL (70-99) 141 mg/dL (70-99) Assessment and Plan Assessmemt and Plan Problems Medical Problems: (1) Bilateral pulmonary infiltrates on CXR Status: Acute (2) Fever Status: Acute (3) Hypoxia Status: Acute (4) Lab test positive for detection of COVID-19 virus Status: Acute Comment Review of Relevant I have reviewed the following items lukasz (where applicable) has been applied. Labs Laboratory Tests Test 10/21/20 12:41 10/21/20 13:30 10/21/20 18:51 10/21/20 19:50 Glucose (Fingerstick) 136 mg/dL (70-99) 129 mg/dL (70-99) 116 mg/dL (70-99) Sodium Level 139 mmol/L (136-145) Potassium Level 3.8 mmol/L (3.5-5.1) Chloride Level 105 mmol/L (98-107) Carbon Dioxide Level 24 mmol/L (21-32) Anion Gap 10 (6-14) Blood Urea Nitrogen 7 mg/dL (8-26) Creatinine 0.7 mg/dL (0.7-1.3) Estimated GFR (Cockcroft-Gault) 113.9 Glucose Level 132 mg/dL (70-99) Calcium Level 8.4 mg/dL (8.5-10.1) Test 10/22/20 05:12 10/22/20 06:20 10/22/20 11:54 10/22/20 15:05 Glucose (Fingerstick) 115 mg/dL (70-99) 104 mg/dL (70-99) Sodium Level 141 mmol/L (136-145) Potassium Level 3.2 mmol/L (3.5-5.1) 3.6 mmol/L (3.5-5.1) Chloride Level 106 mmol/L (98-107) Carbon Dioxide Level 26 mmol/L (21-32) Anion Gap 9 (6-14) Blood Urea Nitrogen 6 mg/dL (8-26) Creatinine 0.8 mg/dL (0.7-1.3) Estimated GFR (Cockcroft-Gault) 97.6 Glucose Level 102 mg/dL (70-99) Calcium Level 8.2 mg/dL (8.5-10.1) Magnesium Level 1.9 mg/dL (1.8-2.4) Test 10/22/20 16:51 10/22/20 21:02 10/23/20 00:14 10/23/20 06:12 Glucose (Fingerstick) 136 mg/dL (70-99) 139 mg/dL (70-99) 147 mg/dL (70-99) 141 mg/dL (70-99) Laboratory Tests Test 10/22/20 11:54 10/22/20 15:05 10/22/20 16:51 10/22/20 21:02 Glucose (Fingerstick) 104 mg/dL (70-99) 136 mg/dL (70-99) 139 mg/dL (70-99) Potassium Level 3.6 mmol/L (3.5-5.1) Test 10/23/20 00:14 10/23/20 06:12 Glucose (Fingerstick) 147 mg/dL (70-99) 141 mg/dL (70-99) Microbiology 10/13/20 Blood Culture - Final, Complete NO GROWTH AFTER 5 DAYS 10/13/20 Gram Stain Evaluation - Final, Complete 10/13/20 Respiratory Culture - Final, Complete 10/13/20 Urine Culture - Final, Complete 10/13/20 Antimicrobic Susceptibility - Final, Complete Medications Current Medications Sodium Chloride 1,000 ml @ 1,000 mls/hr 1X ONCE IV Last administered on 09/20/20at 14:45; Start 09/20/20 at 14:30; Stop 09/20/20 at 15:29; Status DC Dexamethasone Sodium Phosphate (Decadron) 10 mg 1X ONCE IV Last administered on 09/20/20at 14:50; Start 09/20/20 at 14:30; Stop 09/20/20 at 14:31; Status DC Piperacillin Sod/ Tazobactam Sod 3.375 gm/Sodium Chloride 50 ml @ 100 mls/hr 1X ONCE IV Last administered on 09/20/20at 15:22; Start 09/20/20 at 15:30; Stop 09/20/20 at 15:59; Status DC Acetaminophen (Tylenol) 1,000 mg 1X ONCE PO Last administered on 09/20/20at 15:22; Start 09/20/20 at 15:30; Stop 09/20/20 at 15:31; Status DC Ondansetron HCl (Zofran) 4 mg PRN Q8HRS PRN IVP NAUSEA/VOMITING; Start 09/20/20 at 15:45; Stop 09/20/20 at 17:11; Status DC Morphine Sulfate (Morphine Sulfate) 2 mg PRN Q2HR PRN IVP PAIN; Start 09/20/20 at 15:45; Stop 09/21/20 at 15:44; Status DC Acetaminophen (Tylenol) 650 mg PRN Q4HRS PRN PO FEVER > 100.3'F; Start 09/20/20 at 15:45; Stop 09/21/20 at 15:44; Status Cancel Insulin Human Lispro (HumaLOG) 0-5 UNITS TIDWMEALS SQ Last administered on 09/21/20at 12:34; Start 09/20/20 at 17:00; Stop 09/21/20 at 13:33; Status DC Dextrose (Dextrose 50%-Water Syringe) 12.5 gm PRN Q15MIN PRN IV SEE COMMENTS; Start 09/20/20 at 15:45 Ondansetron HCl (Zofran) 4 mg PRN Q6HRS PRN IVP NAUSEA/VOMITING; Start 09/20/20 at 17:00; Stop 10/13/20 at 07:54; Status DC Calcium Carbonate/ Glycine (Tums) 500 mg PRN Q3HRS PRN PO UPSET STOMACH Last administered on 09/23/20at 11:47; Start 09/20/20 at 17:00 Zolpidem Tartrate (Ambien) 5 mg PRN QHS PRN PO INSOMNIA, MAY REPEAT IN 1HR; Start 09/20/20 at 17:00; Stop 10/13/20 at 07:54; Status DC Info (Non-Icu Electrolyte Protocol) 1 ea PRN DAILY PRN MC SEE COMMENTS; Start 09/20/20 at 17:00; Status Cancel Oxycodone/ Acetaminophen (Percocet 5/325) 1 tab PRN Q4HRS PRN PO MILD PAIN, 1ST CHOICE; Start 09/20/20 at 17:00 Oxycodone/ Acetaminophen (Percocet 5/325) 2 tab PRN Q4HRS PRN PO MODERATE PAIN, SEVERE PAIN; Start 09/20/20 at 17:00 Acetaminophen (Tylenol) 650 mg PRN Q6HRS PRN PO Headaches, Temp > 101.5F Last administered on 10/14/20at 09:03; Start 09/20/20 at 17:00 Senna/Docusate Sodium (Senna Plus) 1 tab BID PO Last administered on 10/11/20at 09:51; Start 09/20/20 at 21:00 Enoxaparin Sodium (Lovenox 40mg Syringe) 40 mg Q12HR SQ Last administered on 10/15/20at 07:46; Start 09/20/20 at 17:00; Stop 10/15/20 at 13:58; Status DC Potassium Chloride (Klor-Con) 40 meq 1X ONCE PO Last administered on 09/20/20at 17:34; Start 09/20/20 at 17:00; Stop 09/20/20 at 17:06; Status DC Piperacillin Sod/ Tazobactam Sod (Zosyn Per Pharmacy) 1 each PRN DAILY PRN MC SEE COMMENTS; Start 09/20/20 at 17:00; Stop 10/01/20 at 08:49; Status DC Azithromycin (Zithromax) 500 mg 1X ONCE PO Last administered on 09/20/20at 17:34; Start 09/20/20 at 17:00; Stop 09/20/20 at 17:07; Status DC Dexamethasone Sodium Phosphate (Decadron) 6 mg DAILY IVP Last administered on 09/28/20at 08:02; Start 09/21/20 at 09:00; Stop 09/29/20 at 07:20; Status DC Guaifenesin/ Codeine Phosphate (Robitussin Ac) 5 ml PRN Q6HRS PRN PO COUGH Last administered on 09/23/20at 11:49; Start 09/20/20 at 17:00 Multivitamins (Thera M Plus) 1 tab DAILY PO Last administered on 09/28/20at 08:02; Start 09/21/20 at 09:00; Stop 09/29/20 at 07:56; Status DC Aspirin (Aspirin Chewable) 81 mg DAILYWBKFT PO Last administered on 10/14/20 09:02; Start 09/21/20 at 08:00 Metoprolol Succinate (Toprol Xl) 12.5 mg HS PO Last administered on 09/22/20at 20:28; Start 09/20/20 at 21:00; Stop 09/25/20 at 14:13; Status DC Pantoprazole Sodium (Protonix) 40 mg DAILYAC PO Last administered on 09/23/20at 09:28; Start 09/21/20 at 07:30; Stop 09/24/20 at 09:14; Status DC Simvastatin (Zocor) 20 mg QHS PO Last administered on 10/13/20at 20:07; Start 09/20/20 at 21:00 Piperacillin Sod/ Tazobactam Sod 3.375 gm/Sodium Chloride 50 ml @ 100 mls/hr Q6HRS IV Last administered on 10/01/20at 06:00; Start 09/20/20 at 18:00; Stop 10/01/20 at 07:01; Status DC Remdesivir 200 mg/ Sodium Chloride 210 ml @ 210 mls/hr 1X ONCE IV Last administered on 09/20/20at 21:12; Start 09/20/20 at 20:00; Stop 09/20/20 at 20:59; Status DC Remdesivir 100 mg/ Sodium Chloride 230 ml @ 460 mls/hr Q24H IV Last administered on 09/24/20at 19:28; Start 09/21/20 at 20:00; Stop 09/24/20 at 20:29; Status DC Insulin Glargine (Lantus Syringe) 20 unit BID SQ Last administered on 10/01/20at 08:34; Start 09/21/20 at 21:00; Stop 10/01/20 at 12:36; Status DC Insulin Human Lispro (HumaLOG) 0-9 UNITS TIDWMEALS SQ Last administered on 09/23/20at 17:28; Start 09/21/20 at 17:00; Stop 09/23/20 at 23:06; Status DC Lactobacillus Rhamnosus (Culturelle) 1 cap BID PO Last administered on 09/23/20 09:28; Start 09/21/20 at 21:00; Stop 09/24/20 at 09:21; Status DC Ascorbic Acid (Vitamin C) 1,000 mg TID PO Last administered on 10/14/20 08:57; Start 09/21/20 at 21:00 Zinc Sulfate (Orazinc) 220 mg DAILY PO Last administered on 10/14/20at 08:56; Start 09/22/20 at 09:00 Insulin Human Lispro (HumaLOG) 5 units TIDWMEALS SQ Last administered on 09/23/20at 17:29; Start 09/22/20 at 12:00; Stop 09/24/20 at 09:18; Status DC Albuterol/ Ipratropium (Combivent Respimat 20-100 Mcg) 1 puff PRN QID PRN INH SHORTNESS OF BREATH Last administered on 09/23/20at 09:28; Start 09/22/20 at 12:45 Sterile Water (WATER for RESP) 1,000 ml CONT PRN INH VIA VAPOTHERM DEVICE Last administered on 09/23/20at 14:55; Start 09/23/20 at 12:45; Stop 09/24/20 at 09:20; Status DC Dexmedetomidine HCl 400 mcg/ Sodium Chloride 100 ml @ 0 mls/hr CONT PRN IV PER PROTOCOL Last administered on 10/18/20at 06:02; Start 09/23/20 at 18:00 Sodium Chloride 500 ml @ 500 mls/hr 1X PRN PRN IV SEE COMMENTS; Start 09/23/20 at 18:00 Atropine Sulfate (ATROPINE 0.5mg SYRINGE) 0.5 mg PRN Q5MIN PRN IV SEE COMMENTS; Start 09/23/20 at 18:00 Lorazepam (Ativan Inj) 0.25 mg 1X ONCE IVP Last administered on 09/23/20at 20:23; Start 09/23/20 at 20:15; Stop 09/23/20 at 20:16; Status DC Fentanyl Citrate 30 ml @ 0 mls/hr CONT PRN IV SEE PROTOCOL Last administered on 09/29/20at 14:27; Start 09/23/20 at 21:15; Stop 09/29/20 at 22:00; Status DC Propofol 100 ml @ 0 mls/hr CONT PRN IV PER PROTOCOL Last administered on 10/14/20at 03:25; Start 09/23/20 at 21:15; Stop 10/17/20 at 10:30; Status DC Midazolam HCl 100 ml @ 0 mls/hr CONT PRN IV SEE PROTOCOL Last administered on 10/08/20at 20:48; Start 09/23/20 at 21:15; Stop 10/17/20 at 10:30; Status DC Succinylcholine Chloride (Anectine) 200 mg STK-MED ONCE .ROUTE ; Start 09/23/20 at 21:40; Stop 09/23/20 at 21:40; Status DC Insulin Human Lispro (HumaLOG) 0-9 UNITS Q6HRS SQ Last administered on 10/20/20at 17:54; Start 09/24/20 at 00:00 Succinylcholine Chloride (Anectine) 200 mg 1X ONCE IV Last administered on 09/23/20at 21:44; Start 09/24/20 at 03:00; Stop 09/24/20 at 03:01; Status DC Pantoprazole Sodium (PROTONIX VIAL for IV PUSH) 40 mg DAILY IVP Last administered on 10/23/20at 08:10; Start 09/25/20 at 09:00 Benzocaine (Americaine) 57 spray STK-MED ONCE TP ; Start 09/24/20 at 15:00; Stop 09/25/20 at 10:40; Status DC Potassium Chloride/Water 100 ml @ 100 mls/hr Q1H IV ; Start 09/25/20 at 10:45; Stop 09/25/20 at 12:44; Status UNV Potassium Chloride/Water 100 ml @ 100 mls/hr Q1H IV Last administered on 09/25/20at 14:44; Start 09/25/20 at 11:00; Stop 09/25/20 at 15:01; Status DC Sodium Chloride 1,000 ml @ 50 mls/hr Q20H IV Last administered on 10/09/20at 05:17; Start 09/28/20 at 15:00; Stop 10/10/20 at 09:01; Status DC Dexamethasone Sodium Phosphate (Decadron) 20 mg DAILY IVP Last administered on 09/30/20at 07:48; Start 09/29/20 at 09:00; Stop 10/01/20 at 07:01; Status DC Multivitamins/ Minerals Therapeutic (Centrum Multivit-Mineral Liq) 5 ml DAILY PEG Last administered on 10/14/20at 08:58; Start 09/29/20 at 09:00 Fentanyl Citrate 55 ml @ 1.5 mls/hr CONT PRN IV SEE I/O Last administered on 10/08/20at 10:28; Start 09/29/20 at 21:15; Stop 10/09/20 at 16:29; Status DC Furosemide (Lasix) 20 mg 1X ONCE IVP Last administered on 09/30/20at 11:52; Start 09/30/20 at 11:00; Stop 09/30/20 at 11:01; Status DC Dexamethasone Sodium Phosphate (Decadron) 10 mg DAILY IVP Last administered on 10/03/20at 07:32; Start 10/01/20 at 09:00; Stop 10/03/20 at 11:01; Status DC Insulin Glargine (Lantus Syringe) 25 unit BID SQ Last administered on 10/22/20at 21:09; Start 10/01/20 at 21:00 Nystatin (Nystop) 1 richard BID TP Last administered on 10/22/20at 21:00; Start 10/07/20 at 09:00 Magnesium Sulfate/ Dextrose 100 ml @ 100 mls/hr 1X ONCE IV Last administered on 10/08/20at 11:04; Start 10/08/20 at 11:00; Stop 10/08/20 at 11:59; Status DC Info (Icu Electrolyte Protocol) 1 ea CONT PRN PRN MC SEE COMMENTS; Start 10/08/20 at 10:30 Magnesium Sulfate 50 ml @ 25 mls/hr 1X ONCE IV Last administered on 10/09/20at 08:36; Start 10/09/20 at 07:45; Stop 10/09/20 at 09:44; Status DC Fentanyl Citrate 30 ml @ 1.5 mls/hr CONT PRN PRN IV SEE PROTOCOL Last administered on 10/14/20at 09:20; Start 10/09/20 at 16:30; Stop 10/17/20 at 10:30; Status DC Hydralazine HCl (Apresoline Inj) 10 mg PRN Q4HRS PRN IVP ELEVATED BP, SEE COMMENTS Last administered on 10/20/20at 15:37; Start 10/12/20 at 11:15 Vecuronium [place] (Norcuron Bolus) 6 mg PRN Q6HRS PRN IV VENTILATOR COMPLIANCE Last administered on 10/12/20at 23:39; Start 10/12/20 at 23:45; Stop 10/17/20 at 10:30; Status DC Haloperidol Lactate (Haldol Inj) 5 mg Q8HRS IVP ; Start 10/13/20 at 08:30; Stop 10/13/20 at 09:42; Status DC Potassium Bicarbonate (Potassium Effervescent Tablet) 40 meq 1X ONCE PO Last administered on 10/13/20at 08:41; Start 10/13/20 at 08:00; Stop 10/13/20 at 08:09; Status DC Enalaprilat (Vasotec Inj) 1.25 mg PRN Q6HRS PRN IVP HYPERTENSION- 2nd choice Last administered on 10/16/20at 12:42; Start 10/13/20 at 08:30 Haloperidol Lactate (Haldol Inj) 2.5 mg PRN Q8HRS PRN IVP Agitation during vent wean Last administered on 10/14/20at 17:05; Start 10/13/20 at 09:45; Stop 10/17/20 at 10:30; Status DC Piperacillin Sod/ Tazobactam Sod 3.375 gm/Sodium Chloride 50 ml @ 100 mls/hr Q6 HRS IV Last administered on 10/23/20at 06:08; Start 10/13/20 at 11:00 Piperacillin Sod/ Tazobactam Sod (Zosyn Per Pharmacy) 1 each PRN DAILY PRN MC SEE COMMENTS; Start 10/13/20 at 09:45 Furosemide (Lasix) 40 mg 1X ONCE IVP Last administered on 10/13/20at 15:55; Start 10/13/20 at 14:45; Stop 10/13/20 at 14:46; Status DC Potassium Chloride/Water 100 ml @ 100 mls/hr 1X ONCE IV Last administered on 10/13/20at 15:55; Start 10/13/20 at 15:00; Stop 10/13/20 at 15:59; Status DC Magnesium Sulfate 50 ml @ 25 mls/hr 1X ONCE IV Last administered on 10/14/20at 08:59; Start 10/14/20 at 07:30; Stop 10/14/20 at 09:29; Status DC Potassium Bicarbonate (Potassium Effervescent Tablet) 40 meq 1X ONCE PO Last administered on 10/14/20at 08:57; Start 10/14/20 at 07:30; Stop 10/14/20 at 07:31; Status DC Metoprolol Tartrate (Lopressor Vial) 5 mg PRN Q5MIN PRN IVP TACHYCARDIA Last administered on 10/15/20at 09:17; Start 10/15/20 at 08:45 Fentanyl Citrate (Fentanyl 2ml Vial) 50 mcg PRN Q2HR PRN IVP PAIN Last administered on 10/23/20at 06:20; Start 10/15/20 at 08:45 Diltiazem HCl 125 mg/Sodium Chloride 125 ml @ 5 mls/hr CONT PRN IV SEE I/O RECORD Last administered on 10/15/20at 16:04; Start 10/15/20 at 09:30; Stop 10/16/20 at 12:56; Status DC Furosemide (Lasix) 40 mg DAILY IVP Last administered on 10/17/20at 07:41; Start 10/15/20 at 11:00; Stop 10/17/20 at 09:01; Status DC Potassium Chloride/Water 100 ml @ 100 mls/hr Q1H IV Last administered on 10/15/20at 11:24; Start 10/15/20 at 11:00; Stop 10/15/20 at 12:59; Status DC Digoxin (Lanoxin) 500 mcg 1X ONCE IV Last administered on 10/15/20at 11:11; Start 10/15/20 at 11:15; Stop 10/15/20 at 11:16; Status DC Heparin Sodium/ Dextrose 250 ml @ 0 mls/hr CONT PRN IV PER PROTOCOL Last administered on 10/16/20at 08:17; Start 10/15/20 at 14:00; Stop 10/16/20 at 12:56; Status DC Heparin Sodium (Porcine) (Heparin Sodium) 2,850 unit PRN Q6HRS PRN IV FOR UFH LEVEL LESS THAN 0.2 Last administered on 10/16/20at 11:41; Start 10/15/20 at 14:00; Stop 10/16/20 at 12:56; Status DC Perflutren Protein Type A Microsphe (Optison) 0.66 mg 1X ONCE IV Last administered on 10/16/20at 07:30; Start 10/16/20 at 07:30; Stop 10/16/20 at 07:31; Status DC Perflutren Protein Type A Microsphe (Optison) 0.66 mg STK-MED ONCE IV ; Start 10/16/20 at 07:43; Stop 10/16/20 at 07:43; Status DC Magnesium Sulfate 50 ml @ 25 mls/hr 1X ONCE IV Last administered on 10/16/20at 09:52; Start 10/16/20 at 09:45; Stop 10/16/20 at 11:44; Status DC Enoxaparin Sodium (Lovenox 40mg Syringe) 40 mg Q24H SQ Last administered on 10/22/20at 11:35; Start 10/16/20 at 13:00 Magnesium Sulfate 50 ml @ 25 mls/hr 1X ONCE IV Last administered on 10/17/20at 07:41; Start 10/17/20 at 07:00; Stop 10/17/20 at 08:59; Status DC Metoprolol Tartrate (Lopressor Vial) 5 mg Q6HRS IVP Last administered on 10/17/20at 17:20; Start 10/17/20 at 13:00; Stop 10/19/20 at 12:36; Status DC Nitroglycerin (Nitro-Bid Oint) 1 inch Q6HRS TP Last administered on 10/23/20at 06:15; Start 10/17/20 at 13:00 Furosemide (Lasix) 40 mg DAILY IVP Last administered on 10/19/20at 08:37; Start 10/18/20 at 09:00 Ondansetron HCl (Zofran) 4 mg STK-MED ONCE .ROUTE ; Start 10/17/20 at 14:08; Stop 10/17/20 at 14:09; Status DC Ondansetron HCl (Zofran) 4 mg PRN Q6HRS PRN IVP NAUSEA/VOMITING Last administered on 10/22/20at 21:49; Start 10/17/20 at 14:45 Adenosine (Adenocard) 6 mg 1X ONCE IV Last administered on 10/17/20at 22:00; Start 10/17/20 at 22:00; Stop 10/17/20 at 22:01; Status DC Adenosine (Adenocard) 12 mg 1X ONCE IV Last administered on 10/17/20at 22:15; Start 10/17/20 at 22:15; Stop 10/17/20 at 22:16; Status DC Diltiazem HCl 125 mg/Sodium Chloride 125 ml @ 5 mls/hr CONT PRN IV SEE I/O RECORD Last administered on 10/19/20at 18:34; Start 10/17/20 at 21:45 Diltiazem HCl (Cardizem Iv Push) 10 mg 1X ONCE IVP Last administered on 10/17/20at 22:05; Start 10/17/20 at 22:00; Stop 10/17/20 at 22:01; Status DC Digoxin (Lanoxin) 250 mcg 1X ONCE IV Last administered on 10/17/20at 23:53; Start 10/18/20 at 00:00; Stop 10/18/20 at 00:01; Status DC Digoxin (Lanoxin) 250 mcg 1X ONCE IV Last administered on 10/18/20at 00:46; Start 10/18/20 at 00:30; Stop 10/18/20 at 00:31; Status DC Sodium Chloride 1,000 ml @ 80 mls/hr [id number] IV Last administered on 10/19/20at 17:46; Start 10/18/20 at 06:00; Stop 10/20/20 at 10:30; Status DC Magnesium Sulfate 50 ml @ 25 mls/hr 1X ONCE IV Last administered on 10/18/20at 11:02; Start 10/18/20 at 08:15; Stop 10/18/20 at 10:14; Status DC Potassium Chloride/Water 100 ml @ 50 mls/hr 1X ONCE IV ; Start 10/18/20 at 09:00; Stop 10/18/20 at 08:37; Status DC Potassium Chloride/Water 100 ml @ 50 mls/hr Q2H IV Last administered on 10/18/20at 11:01; Start 10/18/20 at 09:00; Stop 10/18/20 at 12:59; Status DC Amiodarone HCl 150 mg/Dextrose 103 ml @ 600 mls/hr 1X ONCE IV Last administered on 10/18/20at 14:55; Start 10/18/20 at 13:30; Stop 10/18/20 at 13:45; Status DC Amiodarone HCl 450 mg/Dextrose 259 ml @ 0 mls/hr CONT PRN IV SEE I/O RECORD Last administered on 10/19/20at 09:47; Start 10/18/20 at 13:30; Stop 10/19/20 at 13:29; Status DC Acetaminophen (Tylenol Supp) 650 mg PRN Q6HRS PRN [place] MILD PAIN / TEMP > 100.3'F Last administered on 10/18/20at 23:49; Start 10/18/20 at 23:45 Magnesium Sulfate 50 ml @ 25 mls/hr 1X ONCE IV Last administered on 10/19/20at 13:37; Start 10/19/20 at 13:30; Stop 10/19/20 at 15:29; Status DC Potassium Chloride/Water 100 ml @ 100 mls/hr Q1H IV Last administered on 10/19/20at 17:36; Start 10/19/20 at 13:30; Stop 10/19/20 at 15:29; Status DC Metoprolol Tartrate (Lopressor Vial) 5 mg PRN Q6HRS PRN IVP SEE COMMENTS; Start 10/19/20 at 12:45 Potassium Chloride/Water 20 ml @ 20 mls/hr Q1H IV ; Start 10/19/20 at 15:30; Stop 10/19/20 at 17:29; Status Cancel Sodium Chloride (Normal Saline Flush) 10 ml QSHIFT PRN IV AFTER MEDS AND BLOOD DRAWS; Start 10/19/20 at 21:45 Sodium Chloride (Normal Saline Flush) 20 ml QSHIFT PRN IV AFTER MEDS AND BLOOD DRAWS; Start 10/19/20 at 21:45 Potassium Chloride/Water 100 ml @ 100 mls/hr Q1H IV Last administered on 10/20/20at 04:30; Start 10/20/20 at 00:30; Stop 10/20/20 at 04:29; Status DC Magnesium Sulfate 50 ml @ 25 mls/hr 1X ONCE IV Last administered on 10/20/20at 00:31; Start 10/20/20 at 00:30; Stop 10/20/20 at 02:29; Status DC Amiodarone HCl 450 mg/Dextrose 259 ml @ 0 mls/hr 1X ONCE IV Last administered on 10/20/20at 01:00; Start 10/20/20 at 01:00; Stop 10/20/20 at 01:01; Status DC Potassium Chloride/Water 100 ml @ 100 mls/hr Q1H IV Last administered on 10/20/20at 16:35; Start 10/20/20 at 09:00; Stop 10/20/20 at 16:59; Status DC Amino Acids/ Electrolytes/ Dextrose 1,000 ml @ 80 mls/hr [id number] IV Last administered on 10/23/20at 00:17; Start 10/20/20 at 08:30 Magnesium Sulfate 50 ml @ 25 mls/hr 1X ONCE IV Last administered on 10/20/20at 20:44; Start 10/20/20 at 21:00; Stop 10/20/20 at 22:59; Status DC Amiodarone HCl 150 mg/Dextrose 103 ml @ 600 mls/hr 1X ONCE IV Last administered on 10/21/20at 03:04; Start 10/21/20 at 03:30; Stop 10/21/20 at 03:40; Status DC Amiodarone HCl 450 mg/Dextrose 259 ml @ 0 mls/hr CONT PRN IV SEE I/O RECORD Last administered on 10/21/20at 11:06; Start 10/21/20 at 03:30; Stop 10/22/20 at 03:29; Status DC Potassium Chloride/Water 100 ml @ 100 mls/hr Q1H IV Last administered on 10/21/20at 04:01; Start 10/21/20 at 03:30; Stop 10/21/20 at 05:29; Status DC Potassium Chloride/Water 100 ml @ 100 mls/hr Q1H IV Last administered on 10/21/20at 14:44; Start 10/21/20 at 11:00; Stop 10/21/20 at 14:59; Status DC Potassium Chloride/Water 100 ml @ 100 mls/hr Q1H IV Last administered on 10/21/20at 18:14; Start 10/21/20 at 15:00; Stop 10/21/20 at 16:59; Status DC Amiodarone HCl 450 mg/Dextrose 259 ml @ 0 mls/hr CONT PRN IV SEE I/O RECORD Last administered on 10/22/20at 21:11; Start 10/22/20 at 02:00; Stop 10/23/20 at 01:59; Status DC Potassium Chloride/Water 100 ml @ 100 mls/hr Q1H IV Last administered on 10/22/20at 13:02; Start 10/22/20 at 12:00; Stop 10/22/20 at 13:59; Status DC Active Scripts Active Reported Icosapent Ethyl 1 Gm Capsule 2 Cap PO BID Metformin Hcl 1,000 Mg Tablet 1 Tab PO BID Rybelsus (Semaglutide) 7 Mg Tablet 1 Tab PO DAILY Farxiga (Dapagliflozin Propanediol) 10 Mg Tablet 1 Tab PO DAILY Trelegy Ellipta 100-62.5-25 (Fluticasone/Umeclidin/Vilanter) 1 Each Blst.w.dev 1 Puff INH DAILY Benzonatate 200 Mg Capsule 1 Cap PO TID PRN Montelukast Sodium 10 Mg Tablet 1 Tab PO DAILY Loratadine 10 Mg Tablet 1 Tab PO DAILY Fluticasone Propionate Nasal [place] (Fluticasone Propionate) 16 Gm [place].susp 1 Sprays NS BID Simvastatin 20 Mg Tablet 1 Tab PO QHS Vitals/I & O Vital Sign - Last 24 Hours 10/22/20 10/22/20 10/22/20 10/22/20 10:00 12:00 12:00 13:10 Pulse 52 48 54 Resp 20 B/P (MAP) 150/59 (89) 148/59 (88) 180/82 Pulse Ox 95 96 O2 Delivery Nasal Cannula Nasal Cannula Nasal Cannula O2 Flow Rate 2.0 2.0 2.0 10/22/20 10/22/20 10/22/20 10/22/20 15:25 17:52 19:35 20:00 Temp 98.4 98.3 98.4 98.3 Pulse 61 61 68 Resp 18 20 B/P (MAP) 170/66 (100) 145/69 178/79 (112) Pulse Ox 96 94 O2 Delivery Nasal Cannula Nasal Cannula Nasal Cannula O2 Flow Rate 2.0 2.0 2.0 10/22/20 10/22/20 10/22/20 10/23/20 21:49 22:19 22:50 00:18 Temp 98.1 98.1 Pulse 69 69 Resp 18 18 20 B/P (MAP) 141/66 (91) 141/66 Pulse Ox 94 95 95 O2 Delivery Nasal Cannula Nasal Cannula Nasal Cannula O2 Flow Rate 2.0 2.0 2.0 10/23/20 10/23/20 10/23/20 03:25 06:15 06:20 Temp 98.0 98.0 Pulse 69 69 Resp 16 18 B/P (MAP) 155/68 (97) 155/68 Pulse Ox 99 99 O2 Delivery Nasal Cannula Nasal Cannula O2 Flow Rate 2.0 2.0 Intake and Output 10/22/20 10/22/20 10/23/20 15:00 23:00 07:00 Intake Total 50 ml 1000 ml Output Total 1600 ml Balance -1550 ml 1000 ml Justicifation of Admission Dx: Justifications for Admission: Justification of Admission Dx: Yes WILD SHAW MD Oct 23, 2020 08:30
[2020-10-23 08:56] LABS: MAGNESIUM 1.8 mg/dL (1.8-2.4); POTASSIUM 3.8 mmol/L (3.5-5.1)
[2020-10-23] MEDS: INSULIN GLARGINE SYRINGE. SQ SCH ×2 (09:00→21:28)
[2020-10-23] MEDS: SENNOSIDES/DOCUSATE 8.6/50MG TABLET. PO SCH ×2 (09:00→21:00)
[2020-10-23] MEDS: NYSTATIN TOPICAL POWDER 15GM BOTTLE. TP SCH ×2 (09:00→21:00)
[2020-10-23] MEDS: MULTIVITAMINS,THERAPEUTIC 5 ML ORAL LIQUID. PEG SCH (09:00)
[2020-10-23] MEDS ORDERED: BARIUM SULFATE 40% (APPLE) 148 GM PWD. PO ONE (10:00)
--- NOTE | 2020-10-23 10:19 | PDOC ---
PULMONARY PROGRESS NOTES DATE: 10/23/20 TIME: 10:16 Subjective Clinically doing well. Following commands. Patient was transferred to the ICU on the night of 10/19/20 due to ventricular tachycardia and brief asystole for which he required 1 minute of CPR. He was noted to be hypokalemic. No further arrhythmias reported Extubated 10/14 Currently on nasal cannula Cough is getting better Vitals Vital Signs Date Time Temp Pulse Resp B/P (MAP) Pulse Ox O2 Delivery O2 Flow Rate FiO2 10/23/20 08:00 2.0 10/23/20 08:00 Nasal Cannula 10/23/20 07:00 98.3 64 18 149/66 (93) 89 98.3 General: Alert, No acute distress Lungs: Crackles Cardiovascular: S1, S2 Abdomen: Soft, Non-tender Neuro Exam: Alert Extremities: Other Skin: Warm Labs Laboratory Tests Test 10/21/20 12:41 10/21/20 13:30 10/21/20 18:51 10/21/20 19:50 Glucose (Fingerstick) 136 mg/dL (70-99) 129 mg/dL (70-99) 116 mg/dL (70-99) Sodium Level 139 mmol/L (136-145) Potassium Level 3.8 mmol/L (3.5-5.1) Chloride Level 105 mmol/L (98-107) Carbon Dioxide Level 24 mmol/L (21-32) Anion Gap 10 (6-14) Blood Urea Nitrogen 7 mg/dL (8-26) Creatinine 0.7 mg/dL (0.7-1.3) Estimated GFR (Cockcroft-Gault) 113.9 Glucose Level 132 mg/dL (70-99) Calcium Level 8.4 mg/dL (8.5-10.1) Test 10/22/20 05:12 10/22/20 06:20 10/22/20 11:54 10/22/20 15:05 Glucose (Fingerstick) 115 mg/dL (70-99) 104 mg/dL (70-99) Sodium Level 141 mmol/L (136-145) Potassium Level 3.2 mmol/L (3.5-5.1) 3.6 mmol/L (3.5-5.1) Chloride Level 106 mmol/L (98-107) Carbon Dioxide Level 26 mmol/L (21-32) Anion Gap 9 (6-14) Blood Urea Nitrogen 6 mg/dL (8-26) Creatinine 0.8 mg/dL (0.7-1.3) Estimated GFR (Cockcroft-Gault) 97.6 Glucose Level 102 mg/dL (70-99) Calcium Level 8.2 mg/dL (8.5-10.1) Magnesium Level 1.9 mg/dL (1.8-2.4) Test 10/22/20 16:51 10/22/20 21:02 10/23/20 00:14 10/23/20 06:12 Glucose (Fingerstick) 136 mg/dL (70-99) 139 mg/dL (70-99) 147 mg/dL (70-99) 141 mg/dL (70-99) Test 10/23/20 08:15 Potassium Level 3.8 mmol/L (3.5-5.1) Magnesium Level 1.8 mg/dL (1.8-2.4) Laboratory Tests Test 10/22/20 11:54 10/22/20 15:05 10/22/20 16:51 10/22/20 21:02 Glucose (Fingerstick) 104 mg/dL (70-99) 136 mg/dL (70-99) 139 mg/dL (70-99) Potassium Level 3.6 mmol/L (3.5-5.1) Test 10/23/20 00:14 10/23/20 06:12 10/23/20 08:15 Glucose (Fingerstick) 147 mg/dL (70-99) 141 mg/dL (70-99) Potassium Level 3.8 mmol/L (3.5-5.1) Magnesium Level 1.8 mg/dL (1.8-2.4) Medications Active Scripts Medications Dose Route/Sig Max Daily Dose Days Date Category Icosapent Ethyl 1 Gm Capsule 2 Cap PO BID 09/20/20 Reported Metformin Hcl 1,000 Mg Tablet 1 Tab PO BID 09/20/20 Reported Rybelsus (Semaglutide) 7 Mg Tablet 1 Tab PO DAILY 09/20/20 Reported Farxiga (Dapagliflozin Propanediol) 10 Mg Tablet 1 Tab PO DAILY 09/20/20 Reported Trelegy Ellipta 100-62.5-25 (Fluticasone/Umeclidin/Vilanter) 1 Each Blst.w.dev 1 Puff INH DAILY 09/20/20 Reported Benzonatate 200 Mg Capsule 1 Cap PO TID PRN 09/20/20 Reported Montelukast Sodium 10 Mg Tablet 1 Tab PO DAILY 09/20/20 Reported Loratadine 10 Mg Tablet 1 Tab PO DAILY 09/20/20 Reported Fluticasone Propionate Nasal [place] (Fluticasone Propionate) 16 Gm [place].susp 1 Sprays NS BID 09/20/20 Reported Simvastatin 20 Mg Tablet 1 Tab PO QHS 11/20/15 Reported Impression . 1. Acute hypoxic respiratory failure secondary to COVID-19 viral pneumonia/acute lung injury.---intubated 09/23/20. Status post extubation 10/14 2. Abnormal chest x-ray consistent with mild infiltrates favoring COVID-19 viral pneumonia. 3. Leukopenia and thrombocytopenia due to COVID-19 viral pneumonia.--improved 4. No significant tobacco history. 5. Encephalopathy, multifactorial, prior to intubation 6. Delirium 7. Critical care myopathy 8. New onset A. fib with rapid ventricular response 10/15. Currently on Cardizem drip and also on amiodarone 9. Brief asystole and ventricular tachycardia, likely prostrated by hypokalemia.. Torsades as well Chest x-ray reviewed bilateral pulmonary infiltrates compatible with CHF Plan . Updated 10/23 Discussed with RN and patient's at the bedside. Pulmonary status stable. Follow cardiology recommendations regarding ventricular tachycardia/ torsade. Patient is more awake today He will be a good candidate for skilled care. Continue nightly BiPAP Monitor x-ray and labs Chest x-ray from 10/17 reviewed no significant change in bilateral opacities Video swallow today. PPN for now PT and OT Updated 10/22 Discussed with RN and patient's at the bedside. Follow cardiology recommendations regarding ventricular tachycardia/ torsade. Patient is more awake today He will be a good candidate for LTAC once cardiac status is stable. Continue nightly BiPAP Monitor x-ray and labs Chest x-ray from 10/17 reviewed no significant change in bilateral opacities Above discussed with at the bedside PT and OT Nutritional support. Follow speech recommendations. May be able to tolerate p.o. today I have discussed with patient's that we may need a PEG tube Updated 10/21 Discussed with RN and patient's at the bedside. Follow cardiology recommendations regarding ventricular tachycardia. And torsade. Patient is still very weak. He will take a long time to recover. He will be a good candidate for LTAC once cardiac status is stable. Continue nightly BiPAP Monitor x-ray and labs Chest x-ray from 10/17 reviewed no significant change in bilateral opacities Above discussed with at the bedside PT and OT Nutritional support. Follow speech recommendations. Is still not able to eat p.o. consider TPN. I have discussed with patient's that we may need a PEG tube Updated 10/20 Discussed with RN and patient's at the bedside. Currently hypokalemia is being corrected. Follow cardiology recommendations regarding ventricular tachycardia. Patient is still very weak. He will take a long time to recover. He will be a good candidate for LTAC Continue nightly BiPAP Monitor x-ray and labs Chest x-ray from 10/17 reviewed no significant change in bilateral opacities Above discussed with at the bedside PT and OT Nutritional support. Follow speech recommendations. Is still not able to eat p.o. patient patient will have PICC line today and consider TPN. I have discussed with patient's that we may need a PEG tube Updated 10/19 Discussed with RN and patient's at the bedside. Patient is still very weak. He will take a long time to recover. He will be a good candidate for LTAC Continue nightly BiPAP Monitor x-ray and labs Chest x-ray from 10/17 reviewed no significant change in bilateral opacities Above discussed with at the bedside PT and OT Nutritional support. Follow speech recommendations. Is still not able to eat p.o. Updated 10/18 Cussed with RN, transfer out of the intensive care unit Continue nightly BiPAP Monitor x-ray and labs Replace potassium Chest x-ray from 10/17 reviewed no significant change in bilateral opacities Above discussed with at the bedside PT and OT Nutritional support updated 10/17 Patient slowly improving, discussed with , no need for trach Continue Venturi mask BiPAP nightly Follow cardiology input If continues to do well transfer out of the ICU updated 10/16 Patient continues to be critically ill in the intensive care unit, respiratory status tenuous Currently on Venturi mask Continue as needed BiPAP IV Lasix Extubated 10/14 DVT GI prophylaxis Discussed with Total cumulative critical care time of approximately 33 to 35 minutes, reviewing the current documentation, chest x-ray, labs, formulating and impression and plan. updated 10/15 Patient in A. fib currently on IV Cardizem Extubated 10/14, currently on BiPAP holding his own Face mask not sealing very well, will proceed with shaving his whiskers IV Lasix Chest x-ray reviewed slightly worse Discussed case with at the bedside Total cumulative critical care time of 30 minutes with no overlap Labs reviewed, magnesium 1.8 ERIC GOTTLIEB MD Oct 23, 2020 10:19
--- NOTE | 2020-10-23 10:34 | RAD ---
EXAM: Video swallow evaluation. HISTORY: Aspiration. TECHNIQUE: Fluoroscopic imaging was performed with a speech pathologist during the oral administratio n of barium contrast of varying consistencies. A single fluoroscopic spot image was obtained. The tot al cross be time was 2.6 minutes. COMPARISON: None. FINDINGS: There is flash penetration with thin and nectar consistencies. This is seen on multiple swa llowing attempts. There is no elicitation of a cough reflex. There is partial clearing. There is mode rate vallecular residue. No evidence of aspiration or penetration is seen with additional barium cons istencies. IMPRESSION: Penetration with thin and nectar consistencies. Please refer to the separate report by sarah beth chisholm speech pathologist for clinical recommendations. Electronically signed by: Eleonora Coe MD (10/23/2020 10:31 AM) [id number]
--- NOTE | 2020-10-23 11:23 | PDOC ---
JOEY PICHARDO CARROT TIER 10/23/20 1123: CARDIO Progress Notes Date and Time Date of Service 10/23/2020 Time of Evaluation 1050 Subjective Subjective: No Chest Pain, No shortness of breath, No Palpitations Vitals Vitals Vital Signs Date Time Temp Pulse Resp B/P (MAP) Pulse Ox O2 Delivery O2 Flow Rate FiO2 10/23/20 08:00 2.0 10/23/20 08:00 Nasal Cannula 10/23/20 07:00 98.3 64 18 149/66 (93) 89 98.3 Weight Weight [ ] Input and Output Intake and Output Intake and Output 10/23/20 07:00 Intake Total 1050 ml Output Total 1600 ml Balance -550 ml IV Total 1050 ml Output Urine Total 1600 ml # Bowel Movements 2 Laboratory Labs Laboratory Tests Test 10/22/20 11:54 10/22/20 15:05 10/22/20 16:51 10/22/20 21:02 Glucose (Fingerstick) 104 mg/dL (70-99) 136 mg/dL (70-99) 139 mg/dL (70-99) Potassium Level 3.6 mmol/L (3.5-5.1) Test 10/23/20 00:14 10/23/20 06:12 10/23/20 08:15 Glucose (Fingerstick) 147 mg/dL (70-99) 141 mg/dL (70-99) Potassium Level 3.8 mmol/L (3.5-5.1) Magnesium Level 1.8 mg/dL (1.8-2.4) Microbiology Micro Microbiology 10/13/20 Blood Culture - Final, Complete NO GROWTH AFTER 5 DAYS 10/13/20 Gram Stain Evaluation - Final, Complete 10/13/20 Respiratory Culture - Final, Complete 10/13/20 Urine Culture - Final, Complete 10/13/20 Antimicrobic Susceptibility - Final, Complete Physical Exam HEENT: Neck Supple W Full Motion Chest: Symmetric LUNGS: Clear to Auscultation Heart: RRR (SR) Abdomen: Soft N/T Extremities: No Calf Tenderness Neurology: alert, oriented, follow commands Assessment Assessment 1. Acute hypoxic respiratory failure secondary to Covid pneumonia: Initially noted on 09/11/2020. PACS? s/p extubation. Continue management per pulmonary team. 2. Atrial fibrillation with RVR during extubation attempt: maintaining SR 3. Coronary artery disease s/p single-vessel coronary artery bypass surgery with GUZMAN to LAD. clinically stable 4. Hypertension: better controlled 5. Hyperlipidemia 6. Diabetes mellitus type 2: Treat per IM 7. Hx of NICM: recovered. EF and WM nl per TTE 8. Moderate pulmonary HTN 9. Encephalopathy; resolved 10. Dysphagia: passed swallow eval Recommendations 1. Continue pulmonary optimization. Bipap PRN 2. Need outpt sleep study 3. Lasix therapy 4. Convert meds to PO. Amiodarone for rhythm maintenance 5. MCOT Justicifation of Admission Dx: Justifications for Admission: Justification of Admission Dx: Yes NIKHIL CALDERA MD 10/23/202126: CARDIO Progress Notes Assessment Assessment Patient seen and examined. Agree with [employer]'s assessment and plan. AF in the setting of extubation attempts, presently maintaining sinus rhythm. K replaced. Continue amiodarone. CAD status clinically stable. JOEY PICHARDO APRN Oct 23, 2020 11:23 NIKHIL CALDERA MD Oct 23, 2020 21:27
[2020-10-23] MEDS: ASPIRIN CHEWABLE 81 MG TABLET. PO SCH (11:43)
[2020-10-23] MEDS: METOPROLOL TART IMMED RELEASE 25 MG TABLET. PO SCH ×2 (11:44→21:27)
[2020-10-23] MEDS: ASCORBIC ACID 1,000 MG TABLET PO SCH ×3 (11:45→21:27)
[2020-10-23] MEDS: ZINC SULFATE 220 MG CAPSULE. PO SCH (11:45)
[2020-10-23] MEDS: AMIODARONE HCL 200 MG TABLET. PO SCH (11:46)
[2020-10-23] MEDS: ENOXAPARIN 40 MG/0.4 ML SYRINGE. SQ SCH (11:47)
[2020-10-23 12:30] VITALS: BP 148/70
--- NOTE | 2020-10-23 14:17 | NUR ---
SS following up with discharge planning. SS reviewed pt chart and discussed with pt RN. Pt is currently requiring oxygen at two liters nasal canula. COVID19 recovered. Pt not vaccinated. Pt on IV Zosyn. Pt passed swallow study today. Pt on Dysphagia III diet with honey thick liquids. Cardiac medications switched to PO. PT/OT reordered. PT/OT recommended acute rehabilitation last week. Pt was accepted at [facility] and has insurance authorization but no longer has medical criteria for LTACH. Pt's spouse requesting that pt go to [facility], ; fax [phone]. SS currently awaiting PT/OT re-evaluations for referral. SS will continue to follow for discharge planning. Addendum: 10/23/20 at 1608 by SWAPNA FULLER SS PT/OT recommended acute rehabilitation. Referral phoned and faxed to [facility].
[2020-10-23 15:30] VITALS: BP 157/77
[2020-10-23 19:40] VITALS: BP 165/75
[2020-10-23] MEDS: SIMVASTATIN 20 MG TABLET PO SCH (21:26)
[2020-10-23] MEDS: ZOLPIDEM 5 MG TABLET. PO PRN (21:27)
[2020-10-23 22:50] VITALS: BP 142/67
[2020-10-24] MEDS: AA 4.25 %/CALCIUM/LYTES/D5W 1,000 ML IV SCH ×2 (00:07→12:15)
[2020-10-24] MEDS: PIPERACILLIN/TAZOBACTAM 3.375 GM in IV NORMAL SALINE 50ML 50 ML IV SCH ×4 (00:07→17:24)
[2020-10-24 02:50] VITALS: BP 140/64
[2020-10-24] MEDS: INSULIN LISPRO 300 UNITS/3 ML VIAL. SQ SCH ×4 (06:00→17:34)
[2020-10-24 07:00] VITALS: BP 163/77
--- NOTE | 2020-10-24 08:43 | RAD ---
EXAM: Chest, single view. HISTORY: Respiratory failure. COMPARISON: 10/22/2020 FINDINGS: A frontal view of the chest is obtained. There is stable diffuse interstitial infiltrate guillen perimposed on suspected chronic interstitial changes. There is no consolidation, pleural effusion or pneumothorax. There is a stable cardiac silhouette and evidence of prior mediastinal surgery. There i s a left PICC with the tip overlying expected location of the superior cavoatrial junction. IMPRESSION: Stable diffuse interstitial infiltrate superimposed on suspected chronic interstitial jennifer nges. Electronically signed by: Eleonora Coe MD (10/24/2020 8:41 AM) [id number]
[2020-10-24] MEDS: NYSTATIN TOPICAL POWDER 15GM BOTTLE. TP SCH ×2 (09:00→21:00)
[2020-10-24] MEDS: MULTIVITAMINS,THERAPEUTIC 5 ML ORAL LIQUID. PEG SCH (09:00)
[2020-10-24] MEDS: ASPIRIN CHEWABLE 81 MG TABLET. PO SCH (09:08)
[2020-10-24] MEDS: SENNOSIDES/DOCUSATE 8.6/50MG TABLET. PO SCH ×2 (09:09→22:14)
[2020-10-24] MEDS: LACTOBACILLUS RHAMNOSUS GG 1 CAPSULE. PO SCH ×2 (09:09→22:14)
[2020-10-24] MEDS: ZINC SULFATE 220 MG CAPSULE. PO SCH (09:09)
[2020-10-24] MEDS: FUROSEMIDE 40 MG TABLET. PO SCH (09:10)
[2020-10-24] MEDS: ASCORBIC ACID 1,000 MG TABLET PO SCH ×3 (09:10→22:14)
[2020-10-24] MEDS: METOPROLOL TART IMMED RELEASE 25 MG TABLET. PO SCH ×2 (09:10→22:13)
[2020-10-24] MEDS: AMIODARONE HCL 200 MG TABLET. PO SCH (09:10)
--- NOTE | 2020-10-24 09:19 | PDOC ---
PROGRESS NOTES Date of Service: DATE: 10/24/20 TIME: 09:19 Chief Complaint Chief Complaint Acute COVID-19 pneumonia Status post brief CODE BLUE [place] Acute hypoxic respiratory failure Sepsis - due to above Bradycardia Diabetes mellitus type 2 HTN HLD CAD Acute on chronic combined systolic and diastolic CHF h/o Cardiomyopathy - historically EF of 40-45%. History of Present Illness History of Present Illness 10/24/2020: Afebrile. Currently breathing on 2 L nasal cannula. Stable diffuse interstitial infiltrate superimposed on suspected chronic interstitial changes. amiodarone infusion, per cardiology. Convert meds to PO. Amiodarone for rhythm maintenance ST following to assess swallow safety; possible video swallow. Intubated 10/14. long recovery time; would be good candidate for LTAC once stable from cardiac standpoint. Continue nightly BiPAP. 26 minutes spent reviewing charts, reviewing labs, reviewing imaging, discussion with RN. ACCEPTED AT [facility] Patient was transferred to the ICU on the night of 10/19/20 due to ventricular tachycardia and brief asystole for which he required 1 minute of CPR. 10/23/2020: Afebrile. Currently breathing on 2 L nasal cannula. amiodarone infusion, per cardiology. ST following to assess swallow safety; possible video swallow. Intubated 10/14. Likely looking at long recovery time; would be good candidate for LTAC once stable from cardiac standpoint. Continue nightly BiPAP. 26 minutes spent reviewing charts, reviewing labs, reviewing imaging, discussion with RN. ACCEPTED AT [facility] Patient was transferred to the ICU on the night of 10/19/20 due to ventricular tachycardia and brief asystole for which he required 1 minute of CPR. 10/22/2020: Afebrile. Currently breathing on 2 L nasal cannula. Continue amiodarone infusion, per cardiology. ST following to assess swallow safety; possible video swallow. Intubated . Likely looking at long recovery time; would be good candidate for LTAC once stable from cardiac standpoint. Continue nightly BiPAP. Critical care time 30 minutes spent reviewing charts, reviewing labs, reviewing imaging, discussion with RN. 10/21/2020 Patient seen and examined in the ICU, his is present she seems to be good support for him, patient is a lot more alert today, he is able to use 1 or 2 word sentences, is only requiring oxygen via nasal cannula, has a swallow study tomorrow morning Discussed with RN, chart reviewed 10/20: Patient seen and examined in the ICU. Currently on 3 L of oxygen per nasal cannula. His Jenni is present. Discussed with RN. Chart reviewed. Patient was resting with NAD. Transferred to ICU last night due to ventricular tachycardia with brief asystole requiring CPR. On 3L O2 per nasal canula. O2 Sat is 97%. Requiring nightly BIPAP with 40% FiO2. IV Potassium was initiated due to potassium level of 2.8. Started on Clinimix. On amiodarone drip, IV fluids, IV zosyn. Plan to place PICC line today. Chest X-ray indicated mild improvement. 10/19/2020 No acute events overnight. Patient saturating 93% on 5 L nasal cannula. Working with physical therapy at the time with at bedside. Definitely improvement since his ICU course. Failed swallow study we'll continue with n.p.o. Potassium of 2.7 and magnesium 1.5 today. Will replace IV electrolytes. Patient's chart, labs, images were reviewed and discussed with RN 10/18/2020 patient seen and examined in the ICU his Jenni is present she has good support for him currently on nasal cannula oxygen at 5 L Amado to bedside drainage rectal tube in place discussed with RN chart reviewed 10/17/2020 Patient seen and examined in the ICU His is present Currently back on BiPAP 16/ with 40% FiO2 O2 sat is 99% I reviewed the chest x-rays and labs with his Chart reviewed Discussed with RN He remains critically ill Mr Morrissey is a 65-year-old white male w/ PMHx HTN, DM2, HLD, GERD, CAD s/p CABG 2011 presented to ED due to worsening cough and shortness of breath; patient also experiencing vomiting and diarrhea. Patient was recently diagnosed with COVID-19 on September 11 and has been doing well since that until a few days prior to arrival when his symptoms acutely worsened this morning. Has not received Covid vaccine. Close contacts at home have very similar symptoms. 09/21: Patient saturating 98% on 10 L nasal cannula. Increasing O2 requirements may consider pulmonology consult. On remdesivir, steroids 09/22: Patient saturating 91% on 10 L nasal cannula. Shortness of breath with ambulation. Combivent inhaler ordered today. 09/23: Patient is requiring increasing O2 requirements. Saturating 88% on 15 L nonrebreather and also nasal cannula. ICU transfer and intubated. 09/24: In ICU on vent. Afebrile, currently breathing FiO2 100%, PEEP 10. Final dose of remdesivir today. 09/25: Afebrile. On vent with FiO2 80%, PEEP 9. He has completed course of remdesivir. IV steroids for total dose 10 days and IV Zosyn. 09/26: Afebrile. Remains on vent with FiO2 70%, PEEP 8. Completed remdesivir. Continue prophylactic IV Zosyn. 09/27: No acute events overnight. Afebrile. On vent with FiO2 70%, PEEP 8. Cont IV antibiotics and steroids, with taper. Completed remdesivir. 09/28: Afebrile. On vent with FiO2 90%, PEEP 8. Completed remdesivir. Continue IV antibiotics. KUB with good OGT placement 09/29: Afebrile. On vent with increased oxygen requirement, FiO2 100%, PEEP 8. CXR increasing bilateral airspace opacities 09/30: On vent with FiO2 90%, PEEP 8. Afebrile. Steroids have been increased to dexamethasone 20 mg for 5 days, 10 mg for 5 days 10/01: No acute events overnight. Patient saturating 97% on vent settings of 22/500/80/8. Currently sedated and intubated. 10/02: Patient saturating 95% on vent settings of 22/500/75/7. ABG expected at 7.4 /72/28. Currently intubated and sedated. 10/03: No acute events overnight. Patient saturating 94% on vent settings of 22/500/75/7. Improved sugar control. 10/04: Saturating 100% on vent settings of 22/500/65/7. Last ABG show pH of 7.5 //28. Adjustments to vent settings by pulmonology. 10/05: No acute events overnight. Patient saturating 96% on vent settings of 20/500/65/7. Discussed prognosis with family. 10/06: No acute events overnight. Patient saturating 95% on vent settings of 20/500/50/6. No other concerns from nursing at this time. 10/07: No acute events overnight. Patient saturating 96% on vent settings of 20/500/50/6. T-max of 100.3. 10/08: Afebrile overnight. Sedated with propofol Versed and fentanyl PEEP of 6 FiO2 50% ABG 7.4 . Discussed with bedside. 10/09: T-max 100.3 F. Sedated with propofol Versed fentanyl, O2 saturations 96%, ABG 7.4 on FiO2 50% and normal PEEP of 6. D/w bedside. Good UOP 10/10: Afebrile. Sedation wean this morning respirations increased significantly back on sedation. ABG 7.40 FiO2 45% PEEP 6. Discussed with bedside O2 is significantly improving. 10/11: Afebrile. Agitated with sedation wean added Precedex. FiO2 40% PEEP 5. Will attempt sedation wean again today. D/w bedside. 10/12: Chest radiograph improved . ABG 7.4 / on 40% FiO2 PEEP 5. Respiratory rate 28 with wean this morning and blood pressure elevated. Will try to wean again later today. Discussed with at bedside 10/13: Febrile 101.1 F overnight. Very agitated with attempted wean with increased BP ABG 7.471/38.4/71.2 on FiO2 40% PEEP 5. Respiratory blood and urine cultures for fever. Zosyn for coverage for possible VAP, f/u CXR 10/14: Afebrile. O2 saturations improved with furosemide. Urine output 2.7 L. K3.3 mag 1.7 WBC 7.6, Hb 9.3, platelets 158. Starting vent wean. Cultures pending, still on zosyn 10/13 Discussed with Pulmonology adding low-dose Haldol with vent weans will hold on propofol as QT sees around 470. Will maintain telemetry. As needed hydralazine and Vasotec for elevated blood pressure. Discussed with bedside CC time 34 minutes 10/15/2020: Patient seen and examined in the ICU with family present. Currently on BiPAP 16/16, 50% FiO2, and rate 20. Sedated with dexmedetomidine. On diltiazem drip. Amado to BSD. Rectal bag present. Triple lumen PICC in the right arm and right heel ulcer present. Chest x-ray from today showed stable diffuse bilateral opacities.Discussed with RN. Chart reviewed. 10/16/2020 Patient seen and examined in the ICU His is present Currently on Ventimask 50% FiO2 Chart reviewed Discussed with RN He is still quite ill Vitals Vitals Vital Signs Date Time Temp Pulse Resp B/P (MAP) Pulse Ox O2 Delivery O2 Flow Rate FiO2 10/24/20 08:00 2.0 10/24/20 07:00 98.7 68 20 163/77 (105) 94 Nasal Cannula 98.7 Physical Exam General: Alert, Cooperative, mild distress Heart: Regular rate Lungs: Crackles Abdomen: Normal bowel sounds, Soft Extremities: No clubbing, No cyanosis Skin: No rashes, No significant lesion Labs LABS PATIENT: SHANI MORRISSEY ACCOUNT: [id number] : 1955 LOCATION: [facility] AGE: 65 SEX: M EXAM STATUS: ADM IN ORD. PHYSICIAN: ERIC GOTTLIEB MD REASON: RESPIRATORY FAILURE PROCEDURE: PORTABLE CHEST 1V EXAM: Chest, single view. HISTORY: Respiratory failure. COMPARISON: 10/22/2020 FINDINGS: A frontal view of the chest is obtained. There is stable diffuse interstitial infiltrate superimposed on suspected chronic interstitial changes. There is no consolidation, pleural effusion or pneumothorax. There is a stable cardiac silhouette and evidence of prior mediastinal surgery. There is a left PICC with the tip overlying expected location of the superior cavoatrial junction. IMPRESSION: Stable diffuse interstitial infiltrate superimposed on suspected chronic interstitial changes. Electronically signed by: Eleonora Sahu MD (10/24/2020 8:41 AM) [id number] DICTATED and SIGNED BY: ELEONORA SAHU MD DATE: 10/24/20 [id number] Laboratory Tests Test 10/23/20 11:49 10/23/20 17:00 10/23/20 21:35 10/24/20 00:09 Glucose (Fingerstick) 234 mg/dL (70-99) 143 mg/dL (70-99) 166 mg/dL (70-99) 180 mg/dL (70-99) Test 10/24/20 05:48 Glucose (Fingerstick) 141 mg/dL (70-99) Assessment and Plan Assessmemt and Plan Problems Medical Problems: (1) Bilateral pulmonary infiltrates on CXR Status: Acute (2) Fever Status: Acute (3) Hypoxia Status: Acute (4) Lab test positive for detection of COVID-19 virus Status: Acute Comment Review of Relevant I have reviewed the following items lukasz (where applicable) has been applied. Labs Laboratory Tests Test 10/22/20 11:54 10/22/20 15:05 10/22/20 16:51 10/22/20 21:02 Glucose (Fingerstick) 104 mg/dL (70-99) 136 mg/dL (70-99) 139 mg/dL (70-99) Potassium Level 3.6 mmol/L (3.5-5.1) Test 10/23/20 00:14 10/23/20 06:12 10/23/20 08:15 10/23/20 11:49 Glucose (Fingerstick) 147 mg/dL (70-99) 141 mg/dL (70-99) 234 mg/dL (70-99) Potassium Level 3.8 mmol/L (3.5-5.1) Magnesium Level 1.8 mg/dL (1.8-2.4) Test 10/23/20 17:00 10/23/20 21:35 10/24/20 00:09 10/24/20 05:48 Glucose (Fingerstick) 143 mg/dL (70-99) 166 mg/dL (70-99) 180 mg/dL (70-99) 141 mg/dL (70-99) Laboratory Tests Test 10/23/20 11:49 10/23/20 17:00 10/23/20 21:35 10/24/20 00:09 Glucose (Fingerstick) 234 mg/dL (70-99) 143 mg/dL (70-99) 166 mg/dL (70-99) 180 mg/dL (70-99) Test 10/24/20 05:48 Glucose (Fingerstick) 141 mg/dL (70-99) Microbiology 10/13/20 Blood Culture - Final, Complete NO GROWTH AFTER 5 DAYS 10/13/20 Gram Stain Evaluation - Final, Complete 10/13/20 Respiratory Culture - Final, Complete 10/13/20 Urine Culture - Final, Complete 10/13/20 Antimicrobic Susceptibility - Final, Complete Medications Current Medications Sodium Chloride 1,000 ml @ 1,000 mls/hr 1X ONCE IV Last administered on 09/20/20at 14:45; Start 09/20/20 at 14:30; Stop 09/20/20 at 15:29; Status DC Dexamethasone Sodium Phosphate (Decadron) 10 mg 1X ONCE IV Last administered on 09/20/20at 14:50; Start 09/20/20 at 14:30; Stop 09/20/20 at 14:31; Status DC Piperacillin Sod/ Tazobactam Sod 3.375 gm/Sodium Chloride 50 ml @ 100 mls/hr 1X ONCE IV Last administered on 09/20/20at 15:22; Start 09/20/20 at 15:30; Stop 09/20/20 at 15:59; Status DC Acetaminophen (Tylenol) 1,000 mg 1X ONCE PO Last administered on 09/20/20at 15:22; Start 09/20/20 at 15:30; Stop 09/20/20 at 15:31; Status DC Ondansetron HCl (Zofran) 4 mg PRN Q8HRS PRN IVP NAUSEA/VOMITING; Start 09/20/20 at 15:45; Stop 09/20/20 at 17:11; Status DC Morphine Sulfate (Morphine Sulfate) 2 mg PRN Q2HR PRN IVP PAIN; Start 09/20/20 at 15:45; Stop 09/21/20 at 15:44; Status DC Acetaminophen (Tylenol) 650 mg PRN Q4HRS PRN PO FEVER > 100.3'F; Start 09/20/20 at 15:45; Stop 09/21/20 at 15:44; Status Cancel Insulin Human Lispro (HumaLOG) 0-5 UNITS TIDWMEALS SQ Last administered on 09/21/20at 12:34; Start 09/20/20 at 17:00; Stop 09/21/20 at 13:33; Status DC Dextrose (Dextrose 50%-Water Syringe) 12.5 gm PRN Q15MIN PRN IV SEE COMMENTS; Start 09/20/20 at 15:45 Ondansetron HCl (Zofran) 4 mg PRN Q6HRS PRN IVP NAUSEA/VOMITING; Start 09/20/20 at 17:00; Stop 10/13/20 at 07:54; Status DC Calcium Carbonate/ Glycine (Tums) 500 mg PRN Q3HRS PRN PO UPSET STOMACH Last administered on 09/23/20at 11:47; Start 09/20/20 at 17:00 Zolpidem Tartrate (Ambien) 5 mg PRN QHS PRN PO INSOMNIA, MAY REPEAT IN 1HR; Start 09/20/20 at 17:00; Stop 10/13/20 at 07:54; Status DC Info (Non-Icu Electrolyte Protocol) 1 ea PRN DAILY PRN MC SEE COMMENTS; Start 09/20/20 at 17:00; Status Cancel Oxycodone/ Acetaminophen (Percocet 5/325) 1 tab PRN Q4HRS PRN PO MILD PAIN, 1ST CHOICE; Start 09/20/20 at 17:00 Oxycodone/ Acetaminophen (Percocet 5/325) 2 tab PRN Q4HRS PRN PO MODERATE PAIN, SEVERE PAIN; Start 09/20/20 at 17:00 Acetaminophen (Tylenol) 650 mg PRN Q6HRS PRN PO Headaches, Temp > 101.5F Last administered on 10/14/20at 09:03; Start 09/20/20 at 17:00 Senna/Docusate Sodium (Senna Plus) 1 tab BID PO Last administered on 10/11/20at 09:51; Start 09/20/20 at 21:00 Enoxaparin Sodium (Lovenox 40mg Syringe) 40 mg Q12HR SQ Last administered on 10/15/20at 07:46; Start 09/20/20 at 17:00; Stop 10/15/20 at 13:58; Status DC Potassium Chloride (Klor-Con) 40 meq 1X ONCE PO Last administered on 09/20/20at 17:34; Start 09/20/20 at 17:00; Stop 09/20/20 at 17:06; Status DC Piperacillin Sod/ Tazobactam Sod (Zosyn Per Pharmacy) 1 each PRN DAILY PRN MC SEE COMMENTS; Start 09/20/20 at 17:00; Stop 10/01/20 at 08:49; Status DC Azithromycin (Zithromax) 500 mg 1X ONCE PO Last administered on 09/20/20at 17:34; Start 09/20/20 at 17:00; Stop 09/20/20 at 17:07; Status DC Dexamethasone Sodium Phosphate (Decadron) 6 mg DAILY IVP Last administered on 09/28/20at 08:02; Start 09/21/20 at 09:00; Stop 09/29/20 at 07:20; Status DC Guaifenesin/ Codeine Phosphate (Robitussin Ac) 5 ml PRN Q6HRS PRN PO COUGH Last administered on 09/23/20at 11:49; Start 09/20/20 at 17:00 Multivitamins (Thera M Plus) 1 tab DAILY PO Last administered on 09/28/20at 08:02; Start 09/21/20 at 09:00; Stop 09/29/20 at 07:56; Status DC Aspirin (Aspirin Chewable) 81 mg DAILYWBKFT PO Last administered on 10/23/20at 11:43; Start 09/21/20 at 08:00 Metoprolol Succinate (Toprol Xl) 12.5 mg HS PO Last administered on 09/22/20at 20:28; Start 09/20/20 at 21:00; Stop 09/25/20 at 14:13; Status DC Pantoprazole Sodium (Protonix) 40 mg DAILYAC PO Last administered on 09/23/20at 09:28; Start 09/21/20 at 07:30; Stop 09/24/20 at 09:14; Status DC Simvastatin (Zocor) 20 mg QHS PO Last administered on 10/23/20at 21:26; Start 09/20/20 at 21:00 Piperacillin Sod/ Tazobactam Sod 3.375 gm/Sodium Chloride 50 ml @ 100 mls/hr Q6HRS IV Last administered on 10/01/20at 06:00; Start 09/20/20 at 18:00; Stop 10/01/20 at 07:01; Status DC Remdesivir 200 mg/ Sodium Chloride 210 ml @ 210 mls/hr 1X ONCE IV Last administered on 09/20/20at 21:12; Start 09/20/20 at 20:00; Stop 09/20/20 at 20:59; Status DC Remdesivir 100 mg/ Sodium Chloride 230 ml @ 460 mls/hr Q24H IV Last administered on 09/24/20at 19:28; Start 09/21/20 at 20:00; Stop 09/24/20 at 20:29; Status DC Insulin Glargine (Lantus Syringe) 20 unit BID SQ Last administered on 10/01/20at 08:34; Start 09/21/20 at 21:00; Stop 10/01/20 at 12:36; Status DC Insulin Human Lispro (HumaLOG) 0-9 UNITS TIDWMEALS SQ Last administered on 09/23/20at 17:28; Start 09/21/20 at 17:00; Stop 09/23/20 at 23:06; Status DC Lactobacillus Rhamnosus (Culturelle) 1 cap BID PO Last administered on 09/23/20at 09:28; Start 09/21/20 at 21:00; Stop 09/24/20 at 09:21; Status DC Ascorbic Acid (Vitamin C) 1,000 mg TID PO Last administered on 10/23/20at 21:27; Start 09/21/20 at 21:00 Zinc Sulfate (Orazinc) 220 mg DAILY PO Last administered on 10/23/20at 11:45; Start 09/22/20 at 09:00 Insulin Human Lispro (HumaLOG) 5 units TIDWMEALS SQ Last administered on 09/23/20at 17:29; Start 09/22/20 at 12:00; Stop 09/24/20 at 09:18; Status DC Albuterol/ Ipratropium (Combivent Respimat 20-100 Mcg) 1 puff PRN QID PRN INH SHORTNESS OF BREATH Last administered on 09/23/20at 09:28; Start 09/22/20 at 12:45 Sterile Water (WATER for RESP) 1,000 ml CONT PRN INH VIA VAPOTHERM DEVICE Last administered on 09/23/20at 14:55; Start 09/23/20 at 12:45; Stop 09/24/20 at 09:20; Status DC Dexmedetomidine HCl 400 mcg/ Sodium Chloride 100 ml @ 0 mls/hr CONT PRN IV PER PROTOCOL Last administered on 10/18/20at 06:02; Start 09/23/20 at 18:00 Sodium Chloride 500 ml @ 500 mls/hr 1X PRN PRN IV SEE COMMENTS; Start 09/23/20 at 18:00 Atropine Sulfate (ATROPINE 0.5mg SYRINGE) 0.5 mg PRN Q5MIN PRN IV SEE COMMENTS; Start 09/23/20 at 18:00 Lorazepam (Ativan Inj) 0.25 mg 1X ONCE IVP Last administered on 09/23/20at 20:23; Start 09/23/20 at 20:15; Stop 09/23/20 at 20:16; Status DC Fentanyl Citrate 30 ml @ 0 mls/hr CONT PRN IV SEE PROTOCOL Last administered on 09/29/20at 14:27; Start 09/23/20 at 21:15; Stop 09/29/20 at 22:00; Status DC Propofol 100 ml @ 0 mls/hr CONT PRN IV PER PROTOCOL Last administered on 10/14/20at 03:25; Start 09/23/20 at 21:15; Stop 10/17/20 at 10:30; Status DC Midazolam HCl 100 ml @ 0 mls/hr CONT PRN IV SEE PROTOCOL Last administered on 10/08/20at 20:48; Start 09/23/20 at 21:15; Stop 10/17/20 at 10:30; Status DC Succinylcholine Chloride (Anectine) 200 mg STK-MED ONCE .ROUTE ; Start 09/23/20 at 21:40; Stop 09/23/20 at 21:40; Status DC Insulin Human Lispro (HumaLOG) 0-9 UNITS Q6HRS SQ Last administered on 10/23/20at 11:53; Start 09/24/20 at 00:00 Succinylcholine Chloride (Anectine) 200 mg 1X ONCE IV Last administered on 09/23/20at 21:44; Start 09/24/20 at 03:00; Stop 09/24/20 at 03:01; Status DC Pantoprazole Sodium (PROTONIX VIAL for IV PUSH) 40 mg DAILY IVP Last administered on 10/23/20at 08:10; Start 09/25/20 at 09:00 Benzocaine (Americaine) 57 spray STK-MED ONCE TP ; Start 09/24/20 at 15:00; Stop 09/25/20 at 10:40; Status DC Potassium Chloride/Water 100 ml @ 100 mls/hr Q1H IV ; Start 09/25/20 at 10:45; Stop 09/25/20 at 12:44; Status UNV Potassium Chloride/Water 100 ml @ 100 mls/hr Q1H IV Last administered on 09/25/20at 14:44; Start 09/25/20 at 11:00; Stop 09/25/20 at 15:01; Status DC Sodium Chloride 1,000 ml @ 50 mls/hr Q20H IV Last administered on 10/09/20at 05:17; Start 09/28/20 at 15:00; Stop 10/10/20 at 09:01; Status DC Dexamethasone Sodium Phosphate (Decadron) 20 mg DAILY IVP Last administered on 09/30/20at 07:48; Start 09/29/20 at 09:00; Stop 10/01/20 at 07:01; Status DC Multivitamins/ Minerals Therapeutic (Centrum Multivit-Mineral Liq) 5 ml DAILY PEG Last administered on 10/14/20at 08:58; Start 09/29/20 at 09:00 Fentanyl Citrate 55 ml @ 1.5 mls/hr CONT PRN IV SEE I/O Last administered on 10/08/20at 10:28; Start 09/29/20 at 21:15; Stop 10/09/20 at 16:29; Status DC Furosemide (Lasix) 20 mg 1X ONCE IVP Last administered on 09/30/20at 11:52; Start 09/30/20 at 11:00; Stop 09/30/20 at 11:01; Status DC Dexamethasone Sodium Phosphate (Decadron) 10 mg DAILY IVP Last administered on 10/03/20at 07:32; Start 10/01/20 at 09:00; Stop 10/03/20 at 11:01; Status DC Insulin Glargine (Lantus Syringe) 25 unit BID SQ Last administered on 10/23/20at 21:28; Start 10/01/20 at 21:00 Nystatin (Nystop) 1 richard BID TP Last administered on 10/23/20at 21:00; Start 10/07/20 at 09:00 Magnesium Sulfate/ Dextrose 100 ml @ 100 mls/hr 1X ONCE IV Last administered on 10/08/20at 11:04; Start 10/08/20 at 11:00; Stop 10/08/20 at 11:59; Status DC Info (Icu Electrolyte Protocol) 1 ea CONT PRN PRN MC SEE COMMENTS; Start 10/08/20 at 10:30 Magnesium Sulfate 50 ml @ 25 mls/hr 1X ONCE IV Last administered on 10/09/20at 08:36; Start 10/09/20 at 07:45; Stop 10/09/20 at 09:44; Status DC Fentanyl Citrate 30 ml @ 1.5 mls/hr CONT PRN PRN IV SEE PROTOCOL Last administered on 10/14/20at 09:20; Start 10/09/20 at 16:30; Stop 10/17/20 at 10:30; Status DC Hydralazine HCl (Apresoline Inj) 10 mg PRN Q4HRS PRN IVP ELEVATED BP, SEE COMMENTS Last administered on 10/20/20at 15:37; Start 10/12/20 at 11:15 Vecuronium [place] (Norcuron Bolus) 6 mg PRN Q6HRS PRN IV VENTILATOR COMPLIANCE Last administered on 10/12/20at 23:39; Start 10/12/20 at 23:45; Stop 10/17/20 at 10:30; Status DC Haloperidol Lactate (Haldol Inj) 5 mg Q8HRS IVP ; Start 10/13/20 at 08:30; Stop 10/13/20 at 09:42; Status DC Potassium Bicarbonate (Potassium Effervescent Tablet) 40 meq 1X ONCE PO Last administered on 10/13/20at 08:41; Start 10/13/20 at 08:00; Stop 10/13/20 at 08:09; Status DC Enalaprilat (Vasotec Inj) 1.25 mg PRN Q6HRS PRN IVP HYPERTENSION- 2nd choice Last administered on 10/16/20at 12:42; Start 10/13/20 at 08:30 Haloperidol Lactate (Haldol Inj) 2.5 mg PRN Q8HRS PRN IVP Agitation during vent wean Last administered on 10/14/20at 17:05; Start 10/13/20 at 09:45; Stop 10/17/20 at 10:30; Status DC Piperacillin Sod/ Tazobactam Sod 3.375 gm/Sodium Chloride 50 ml @ 100 mls/hr Q6HRS IV Last administered on 10/24/20at 06:06; Start 10/13/20 at 11:00 Piperacillin Sod/ Tazobactam Sod (Zosyn Per Pharmacy) 1 each PRN DAILY PRN MC SEE COMMENTS; Start 10/13/20 at 09:45 Furosemide (Lasix) 40 mg 1X ONCE IVP Last administered on 10/13/20at 15:55; Start 10/13/20 at 14:45; Stop 10/13/20 at 14:46; Status DC Potassium Chloride/Water 100 ml @ 100 mls/hr 1X ONCE IV Last administered on 10/13/20at 15:55; Start 10/13/20 at 15:00; Stop 10/13/20 at 15:59; Status DC Magnesium Sulfate 50 ml @ 25 mls/hr 1X ONCE IV Last administered on 10/14/20at 08:59; Start 10/14/20 at 07:30; Stop 10/14/20 at 09:29; Status DC Potassium Bicarbonate (Potassium Effervescent Tablet) 40 meq 1X ONCE PO Last administered on 10/14/20at 08:57; Start 10/14/20 at 07:30; Stop 10/14/20 at 07:31; Status DC Metoprolol Tartrate (Lopressor Vial) 5 mg PRN Q5MIN PRN IVP TACHYCARDIA Last administered on 10/15/20at 09:17; Start 10/15/20 at 08:45 Fentanyl Citrate (Fentanyl 2ml Vial) 50 mcg PRN Q2HR PRN IVP PAIN Last administered on 10/23/20at 06:20; Start 10/15/20 at 08:45 Diltiazem HCl 125 mg/Sodium Chloride 125 ml @ 5 mls/hr CONT PRN IV SEE I/O RECORD Last administered on 10/15/20at 16:04; Start 10/15/20 at 09:30; Stop 10/16/20 at 12:56; Status DC Furosemide (Lasix) 40 mg DAILY IVP Last administered on 10/17/20at 07:41; Start 10/15/20 at 11:00; Stop 10/17/20 at 09:01; Status DC Potassium Chloride/Water 100 ml @ 100 mls/hr Q1H IV Last administered on 10/15/20at 11:24; Start 10/15/20 at 11:00; Stop 10/15/20 at 12:59; Status DC Digoxin (Lanoxin) 500 mcg 1X ONCE IV Last administered on 10/15/20at 11:11; Start 10/15/20 at 11:15; Stop 10/15/20 at 11:16; Status DC Heparin Sodium/ Dextrose 250 ml @ 0 mls/hr CONT PRN IV PER PROTOCOL Last administered on 10/16/20at 08:17; Start 10/15/20 at 14:00; Stop 10/16/20 at 12:56; Status DC Heparin Sodium (Porcine) (Heparin Sodium) 2,850 unit PRN Q6HRS PRN IV FOR UFH LEVEL LESS THAN 0.2 Last administered on 10/16/20at 11:41; Start 10/15/20 at 14:00; Stop 10/16/20 at 12:56; Status DC Perflutren Protein Type A Microsphe (Optison) 0.66 mg 1X ONCE IV Last administered on 10/16/20at 07:30; Start 10/16/20 at 07:30; Stop 10/16/20 at 07:31; Status DC Perflutren Protein Type A Microsphe (Optison) 0.66 mg STK-MED ONCE IV ; Start 10/16/20 at 07:43; Stop 10/16/20 at 07:43; Status DC Magnesium Sulfate 50 ml @ 25 mls/hr 1X ONCE IV Last administered on 10/16/20at 09:52; Start 10/16/20 at 09:45; Stop 10/16/20 at 11:44; Status DC Enoxaparin Sodium (Lovenox 40mg Syringe) 40 mg Q24H SQ Last administered on 10/23/20at 11:47; Start 10/16/20 at 13:00 Magnesium Sulfate 50 ml @ 25 mls/hr 1X ONCE IV Last administered on 10/17/20at 07:41; Start 10/17/20 at 07:00; Stop 10/17/20 at 08:59; Status DC Metoprolol Tartrate (Lopressor Vial) 5 mg Q6HRS IVP Last administered on 10/17/20at 17:20; Start 10/17/20 at 13:00; Stop 10/19/20 at 12:36; Status DC Nitroglycerin (Nitro-Bid Oint) 1 inch Q6HRS TP Last administered on 10/23/20at 06:15; Start 10/17/20 at 13:00; Stop 10/23/20 at 11:22; Status DC Furosemide (Lasix) 40 mg DAILY IVP Last administered on 10/19/20at 08:37; Start 10/18/20 at 09:00; Stop 10/23/20 at 11:22; Status DC Ondansetron HCl (Zofran) 4 mg STK-MED ONCE .ROUTE ; Start 10/17/20 at 14:08; Stop 10/17/20 at 14:09; Status DC Ondansetron HCl (Zofran) 4 mg PRN Q6HRS PRN IVP NAUSEA/VOMITING Last administered on 10/22/20at 21:49; Start 10/17/20 at 14:45 Adenosine (Adenocard) 6 mg 1X ONCE IV Last administered on 10/17/20at 22:00; Start 10/17/20 at 22:00; Stop 10/17/20 at 22:01; Status DC Adenosine (Adenocard) 12 mg 1X ONCE IV Last administered on 10/17/20at 22:15; Start 10/17/20 at 22:15; Stop 10/17/20 at 22:16; Status DC Diltiazem HCl 125 mg/Sodium Chloride 125 ml @ 5 mls/hr CONT PRN IV SEE I/O RECORD Last administered on 10/19/20at 18:34; Start 10/17/20 at 21:45 Diltiazem HCl (Cardizem Iv Push) 10 mg 1X ONCE IVP Last administered on 10/17/20at 22:05; Start 10/17/20 at 22:00; Stop 10/17/20 at 22:01; Status DC Digoxin (Lanoxin) 250 mcg 1X ONCE IV Last administered on 10/17/20at 23:53; Start 10/18/20 at 00:00; Stop 10/18/20 at 00:01; Status DC Digoxin (Lanoxin) 250 mcg 1X ONCE IV Last administered on 10/18/20at 00:46; Start 10/18/20 at 00:30; Stop 10/18/20 at 00:31; Status DC Sodium Chloride 1,000 ml @ 80 mls/hr [id number] IV Last administered on 10/19/20at 17:46; Start 10/18/20 at 06:00; Stop 10/20/20 at 10:30; Status DC Magnesium Sulfate 50 ml @ 25 mls/hr 1X ONCE IV Last administered on 10/18/20at 11:02; Start 10/18/20 at 08:15; Stop 10/18/20 at 10:14; Status DC Potassium Chloride/Water 100 ml @ 50 mls/hr 1X ONCE IV ; Start 10/18/20 at 09:00; Stop 10/18/20 at 08:37; Status DC Potassium Chloride/Water 100 ml @ 50 mls/hr Q2H IV Last administered on 10/18/20at 11:01; Start 10/18/20 at 09:00; Stop 10/18/20 at 12:59; Status DC Amiodarone HCl 150 mg/Dextrose 103 ml @ 600 mls/hr 1X ONCE IV Last administered on 10/18/20at 14:55; Start 10/18/20 at 13:30; Stop 10/18/20 at 13:45; Status DC Amiodarone HCl 450 mg/Dextrose 259 ml @ 0 mls/hr CONT PRN IV SEE I/O RECORD Last administered on 10/19/20at 09:47; Start 10/18/20 at 13:30; Stop 10/19/20 at 13:29; Status DC Acetaminophen (Tylenol Supp) 650 mg PRN Q6HRS PRN NE MILD PAIN / TEMP > 100.3'F Last administered on 10/18/20at 23:49; Start 10/18/20 at 23:45 Magnesium Sulfate 50 ml @ 25 mls/hr 1X ONCE IV Last administered on 10/19/20at 13:37; Start 10/19/20 at 13:30; Stop 10/19/20 at 15:29; Status DC Potassium Chloride/Water 100 ml @ 100 mls/hr Q1H IV Last administered on 10/19/20at 17:36; Start 10/19/20 at 13:30; Stop 10/19/20 at 15:29; Status DC Metoprolol Tartrate (Lopressor Vial) 5 mg PRN Q6HRS PRN IVP SEE COMMENTS; St art 10/19/20 at 12:45 Potassium Chloride/Water 20 ml @ 20 mls/hr Q1H IV ; Start 10/19/20 at 15:30; Stop 10/19/20 at 17:29; Status Cancel Sodium Chloride (Normal Saline Flush) 10 ml QSHIFT PRN IV AFTER MEDS AND BLOOD DRAWS; Start 10/19/20 at 21:45 Sodium Chloride (Normal Saline Flush) 20 ml QSHIFT PRN IV AFTER MEDS AND BLOOD DRAWS; Start 10/19/20 at 21:45 Potassium Chloride/Water 100 ml @ 100 mls/hr Q1H IV Last administered on 10/20/20at 04:30; Start 10/20/20 at 00:30; Stop 10/20/20 at 04:29; Status DC Magnesium Sulfate 50 ml @ 25 mls/hr 1X ONCE IV Last administered on 10/20/20at 00:31; Start 10/20/20 at 00:30; Stop 10/20/20 at 02:29; Status DC Amiodarone HCl 450 mg/Dextrose 259 ml @ 0 mls/hr 1X ONCE IV Last administered on 10/20/20at 01:00; Start 10/20/20 at 01:00; Stop 10/20/20 at 01:01; Status DC Potassium Chloride/Water 100 ml @ 100 mls/hr Q1H IV Last administered on 10/10 03/01at 16:35; Start 10/20/20 at 09:00; Stop 10/20/20 at 16:59; Status DC Amino Acids/ Electrolytes/ Dextrose 1,000 ml @ 80 mls/hr [id number] IV Last administered on 10/24/20at 00:07; Start 10/20/20 at 08:30 Magnesium Sulfate 50 ml @ 25 mls/hr 1X ONCE IV Last administered on 10/20/20at 20:44; Start 10/20/20 at 21:00; Stop 10/20/20 at 22:59; Status DC Amiodarone HCl 150 mg/Dextrose 103 ml @ 600 mls/hr 1X ONCE IV Last administered on 10/21/20at 03:04; Start 10/21/20 at 03:30; Stop 10/21/20 at 03:40; Status DC Amiodarone HCl 450 mg/Dextrose 259 ml @ 0 mls/hr CONT PRN IV SEE I/O RECORD Last administered on 10/21/20at 11:06; Start 10/21/20 at 03:30; Stop 10/22/20 at 03:29; Status DC Potassium Chloride/Water 100 ml @ 100 mls/hr Q1H IV Last administered on 01/29at 04:01; Start 10/21/20 at 03:30; Stop 10/21/20 at 05:29; Status DC Potassium Chloride/Water 100 ml @ 100 mls/hr Q1H IV Last administered on 10/21/20at 14:44; Start 10/21/20 at 11:00; Stop 10/21/20 at 14:59; Status DC Potassium Chloride/Water 100 ml @ 100 mls/hr Q1H IV Last administered on 10/21/20at 18:14; Start 10/21/20 at 15:00; Stop 10/21/20 at 16:59; Status DC Amiodarone HCl 450 mg/Dextrose 259 ml @ 0 mls/hr CONT PRN IV SEE I/O RECORD Last administered on 10/22/20at 21:11; Start 10/22/20 at 02:00; Stop 10/23/20 at 01:59; Status DC Potassium Chloride/Water 100 ml @ 100 mls/hr Q1H IV Last administered on 10/22/20at 13:02; Start 10/22/20 at 12:00; Stop 10/22/20 at 13:59; Status DC Barium Sulfate (Varibar Thin Liquid Apple) 148 gm 1X ONCE PO Last administered on 10/23/20at 10:24; Start 10/23/20 at 10:00; Stop 10/23/20 at 10:01; Status DC Amiodarone HCl (Cordarone) 200 mg DAILY PO Last administered on 10/23/20at 11:46; Start 10/23/20 at 12:00 Metoprolol Tartrate (Lopressor) 12.5 mg BID PO Last administered on 10/23/20at 21:27; Start 10/23/20 at 12:00 Amlodipine Besylate (Norvasc) 5 mg DAILY PO Last administered on 10/23/20at 11:44; Start 10/23/20 at 12:00 Furosemide (Lasix) 20 mg DAILY PO ; Start 10/24/20 at 09:00 Zolpidem Tartrate (Ambien) 5 mg PRN QHS PRN PO INSOMNIA Last administered on 10/23/20at 21:27; Start 10/23/20 at 21:30 Lactobacillus Rhamnosus (Culturelle) 1 cap BID PO ; Start 10/24/20 at 09:00 Active Scripts Active Reported Icosapent Ethyl 1 Gm Capsule 2 Cap PO BID Metformin Hcl 1,000 Mg Tablet 1 Tab PO BID Rybelsus (Semaglutide) 7 Mg Tablet 1 Tab PO DAILY Farxiga (Dapagliflozin Propanediol) 10 Mg Tablet 1 Tab PO DAILY Trelegy Ellipta 100-62.5-25 (Fluticasone/Umeclidin/Vilanter) 1 Each Blst.w.dev 1 Puff INH DAILY Benzonatate 200 Mg Capsule 1 Cap PO TID PRN Montelukast Sodium 10 Mg Tablet 1 Tab PO DAILY Loratadine 10 Mg Tablet 1 Tab PO DAILY Fluticasone Propionate Nasal [place] (Fluticasone Propionate) 16 Gm [place].susp 1 Sprays NS BID Simvastatin 20 Mg Tablet 1 Tab PO QHS Vitals/I & O Vital Sign - Last 24 Hours 10/23/20 10/23/20 10/23/20 10/23/20 11:44 11:44 11:46 12:30 Temp 98.0 98.0 Pulse 64 64 64 81 Resp 24 B/P (MAP) 149/66 149/66 149/66 148/70 (96) Pulse Ox 98 O2 Delivery Nasal Cannula O2 Flow Rate 2.0 10/23/20 10/23/20 10/23/20 10/23/20 15:30 19:40 20:00 21:27 Temp 98.7 98.9 98.7 98.9 Pulse 68 69 69 Resp 2 20 B/P (MAP) 157/77 (103) 165/75 (105) 165/75 Pulse Ox 98 93 O2 Delivery Nasal Cannula Nasal Cannula Nasal Cannula O2 Flow Rate 2.0 2.0 10/23/20 10/24/20 10/24/20 10/24/20 22:50 02:50 07:00 08:00 Temp 99.3 98.9 98.7 99.3 98.9 98.7 Pulse 68 68 68 Resp 20 20 20 B/P (MAP) 142/67 (92) 140/64 (89) 163/77 (105) Pulse Ox 99 93 94 O2 Delivery Nasal Cannula Nasal Cannula Nasal Cannula O2 Flow Rate 2.0 2.0 2.0 2.0 Intake and Output 10/23/20 10/23/20 10/24/20 15:00 23:00 07:00 Output Total 2300 ml Balance -2300 ml Justicifation of Admission Dx: Justifications for Admission: Justification of Admission Dx: Yes WILD SHAW MD Oct 24, 2020 09:19
[2020-10-24] MEDS: INSULIN GLARGINE SYRINGE. SQ SCH ×2 (09:29→23:10)
[2020-10-24 09:42] LABS: MAGNESIUM 1.9 mg/dL (1.8-2.4); POTASSIUM 3.8 mmol/L (3.5-5.1)
[2020-10-24] MEDS: PANTOPRAZOLE IV PUSH 40 MG VIAL. IVP SCH (09:50)
[2020-10-24 11:00] VITALS: BP 143/77
--- NOTE | 2020-10-24 11:05 | PDOC ---
PULMONARY PROGRESS NOTES DATE: 10/24/20 TIME: 11:03 Subjective Clinically doing well. Following commands. Patient was transferred to the ICU on the night of 10/19/20 due to ventricular tachycardia and brief asystole for which he required 1 minute of CPR. He was noted to be hypokalemic. No further arrhythmias reported Extubated 10/14 Currently on nasal cannula Cough is getting better Vitals Vital Signs Date Time Temp Pulse Resp B/P (MAP) Pulse Ox O2 Delivery O2 Flow Rate FiO2 10/24/20 09:10 68 163/77 10/24/20 08:00 2.0 10/24/20 07:00 98.7 20 94 Nasal Cannula 98.7 General: Alert, No acute distress Lungs: Crackles Cardiovascular: S1, S2 Abdomen: Soft, Non-tender Neuro Exam: Alert Extremities: Other Skin: Warm Labs Laboratory Tests Test 10/22/20 11:54 10/22/20 15:05 10/22/20 16:51 10/22/20 21:02 Glucose (Fingerstick) 104 mg/dL (70-99) 136 mg/dL (70-99) 139 mg/dL (70-99) Potassium Level 3.6 mmol/L (3.5-5.1) Test 10/23/20 00:14 10/23/20 06:12 10/23/20 08:15 10/23/20 11:49 Glucose (Fingerstick) 147 mg/dL (70-99) 141 mg/dL (70-99) 234 mg/dL (70-99) Potassium Level 3.8 mmol/L (3.5-5.1) Magnesium Level 1.8 mg/dL (1.8-2.4) Test 10/23/20 17:00 10/23/20 21:35 10/24/20 00:09 10/24/20 05:48 Glucose (Fingerstick) 143 mg/dL (70-99) 166 mg/dL (70-99) 180 mg/dL (70-99) 141 mg/dL (70-99) Test 10/24/20 09:20 Potassium Level 3.8 mmol/L (3.5-5.1) Magnesium Level 1.9 mg/dL (1.8-2.4) Laboratory Tests Test 10/23/20 11:49 10/23/20 17:00 10/23/20 21:35 10/24/20 00:09 Glucose (Fingerstick) 234 mg/dL (70-99) 143 mg/dL (70-99) 166 mg/dL (70-99) 180 mg/dL (70-99) Test 10/24/20 05:48 10/24/20 09:20 Glucose (Fingerstick) 141 mg/dL (70-99) Potassium Level 3.8 mmol/L (3.5-5.1) Magnesium Level 1.9 mg/dL (1.8-2.4) Medications Active Scripts Medications Dose Route/Sig Max Daily Dose Days Date Category Icosapent Ethyl 1 Gm Capsule 2 Cap PO BID 09/20/20 Reported Metformin Hcl 1,000 Mg Tablet 1 Tab PO BID 09/20/20 Reported Rybelsus (Semaglutide) 7 Mg Tablet 1 Tab PO DAILY 09/20/20 Reported Farxiga (Dapagliflozin Propanediol) 10 Mg Tablet 1 Tab PO DAILY 09/20/20 Reported Trelegy Ellipta 100-62.5-25 (Fluticasone/Umeclidin/Vilanter) 1 Each Blst.w.dev 1 Puff INH DAILY 09/20/20 Reported Benzonatate 200 Mg Capsule 1 Cap PO TID PRN 09/20/20 Reported Montelukast Sodium 10 Mg Tablet 1 Tab PO DAILY 09/20/20 Reported Loratadine 10 Mg Tablet 1 Tab PO DAILY 09/20/20 Reported Fluticasone Propionate Nasal [place] (Fluticasone Propionate) 16 Gm [place].susp 1 Sprays NS BID 09/20/20 Reported Simvastatin 20 Mg Tablet 1 Tab PO QHS 11/20/15 Reported Impression . 1. Acute hypoxic respiratory failure secondary to COVID-19 viral pneumonia/acute lung injury.---intubated 09/23/20. Status post extubation 10/14 2. Abnormal chest x-ray consistent with mild infiltrates favoring COVID-19 viral pneumonia. 3. Leukopenia and thrombocytopenia due to COVID-19 viral pneumonia.--improved 4. No significant tobacco history. 5. Encephalopathy, multifactorial, prior to intubation 6. Delirium 7. Critical care myopathy 8. New onset A. fib with rapid ventricular response 10/15. Currently on Cardizem drip and also on amiodarone 9. Brief asystole and ventricular tachycardia, likely prostrated by hypokalemia.. Torsades as well Chest x-ray reviewed bilateral pulmonary infiltrates compatible with CHF Plan . Updated 10/24 Discussed with RN and patient's at the bedside. Pulmonary status stable. Follow cardiology recommendations regarding ventricular tachycardia/ torsade. Patient is more awake today He will be a good candidate for skilled care. As needed BiPAP. Dysphagia diet per speech recommendations and video swallow PT and OT Pulmonary status stable We will sign off for now and see him as needed Updated 10/23 Discussed with RN and patient's at the bedside. Pulmonary status stable. Follow cardiology recommendations regarding ventricular tachycardia/ torsade. Patient is more awake today He will be a good candidate for skilled care. Continue nightly BiPAP Monitor x-ray and labs Chest x-ray from 10/17 reviewed no significant change in bilateral opacities Video swallow today. PPN for now PT and OT Updated 10/22 Discussed with RN and patient's at the bedside. Follow cardiology recommendations regarding ventricular tachycardia/ torsade. Patient is more awake today He will be a good candidate for LTAC once cardiac status is stable. Continue nightly BiPAP Monitor x-ray and labs Chest x-ray from 10/17 reviewed no significant change in bilateral opacities Above discussed with at the bedside PT and OT Nutritional support. Follow speech recommendations. May be able to tolerate p.o. today I have discussed with patient's that we may need a PEG tube Updated 10/21 Discussed with RN and patient's at the bedside. Follow cardiology recommendations regarding ventricular tachycardia. And torsade. Patient is still very weak. He will take a long time to recover. He will be a good candidate for LTAC once cardiac status is stable. Continue nightly BiPAP Monitor x-ray and labs Chest x-ray from 10/17 reviewed no significant change in bilateral opacities Above discussed with at the bedside PT and OT Nutritional support. Follow speech recommendations. Is still not able to eat p.o. consider TPN. I have discussed with patient's that we may need a PEG tube Updated 10/20 Discussed with RN and patient's at the bedside. Currently hypokalemia is being corrected. Follow cardiology recommendations regarding ventricular tachycardia. Patient is still very weak. He will take a long time to recover. He will be a good candidate for LTAC Continue nightly BiPAP Monitor x-ray and labs Chest x-ray from 10/17 reviewed no significant change in bilateral opacities Above discussed with at the bedside PT and OT Nutritional support. Follow speech recommendations. Is still not able to eat p.o. patient patient will have PICC line today and consider TPN. I have discussed with patient's that we may need a PEG tube Updated 10/19 Discussed with RN and patient's at the bedside. Patient is still very weak. He will take a long time to recover. He will be a good candidate for LTAC Continue nightly BiPAP Monitor x-ray and labs Chest x-ray from 10/17 reviewed no significant change in bilateral opacities Above discussed with at the bedside PT and OT Nutritional support. Follow speech recommendations. Is still not able to eat p.o. Updated 10/18 Cussed with RN, transfer out of the intensive care unit Continue nightly BiPAP Monitor x-ray and labs Replace potassium Chest x-ray from 10/17 reviewed no significant change in bilateral opacities Above discussed with at the bedside PT and OT Nutritional support updated 10/17 Patient slowly improving, discussed with , no need for trach Continue Venturi mask BiPAP nightly Follow cardiology input If continues to do well transfer out of the ICU updated 10/16 Patient continues to be critically ill in the intensive care unit, respiratory status tenuous Currently on Venturi mask Continue as needed BiPAP IV Lasix Extubated 10/14 DVT GI prophylaxis Discussed with Total cumulative critical care time of approximately 33 to 35 minutes, reviewing the current documentation, chest x-ray, labs, formulating and impression and plan. updated 10/15 Patient in A. fib currently on IV Cardizem Extubated 10/14, currently on BiPAP holding his own Face mask not sealing very well, will proceed with shaving his whiskers IV Lasix Chest x-ray reviewed slightly worse Discussed case with at the bedside Total cumulative critical care time of 30 minutes with no overlap Labs reviewed, magnesium 1.8 ERIC GOTTLIEB MD Oct 24, 2020 11:05
--- NOTE | 2020-10-24 12:05 | NUR ---
SS following up with discharge planning. SS reviewed pt chart and discussed with pt RN. Pt is currently on room air. COVID19 recovered. PT/OT recommended acute rehabilitation. Pt accepted at [facility], ; fax [phone], pending insurance authorization. Pt on IV Zosyn. PO diet. SS will continue to follow for discharge planning.
[2020-10-24] MEDS: ENOXAPARIN 40 MG/0.4 ML SYRINGE. SQ SCH (12:14)
--- NOTE | 2020-10-24 12:19 | PDOC ---
JOEY PICHARDO STATISTICAL CLERK ADVERTISING 10/24/20 1219: CARDIO Progress Notes Date and Time Date of Service 10/24/2020 Time of Evaluation 1150 Subjective Subjective: No Chest Pain, No shortness of breath, No Palpitations Vitals Vitals Vital Signs Date Time Temp Pulse Resp B/P (MAP) Pulse Ox O2 Delivery O2 Flow Rate FiO2 10/24/20 09:10 68 163/77 10/24/20 08:00 2.0 10/24/20 08:00 Room Air 10/24/20 07:00 98.7 20 94 98.7 Weight Weight [ ] Input and Output Intake and Output Intake and Output 10/24/20 07:00 Output Total 2300 ml Balance -2300 ml Output Urine Total 2300 ml # Bowel Movements 1 Laboratory Labs Laboratory Tests Test 10/23/20 17:00 10/23/20 21:35 10/24/20 00:09 10/24/20 05:48 Glucose (Fingerstick) 143 mg/dL (70-99) 166 mg/dL (70-99) 180 mg/dL (70-99) 141 mg/dL (70-99) Test 10/24/20 09:20 10/24/20 12:03 Potassium Level 3.8 mmol/L (3.5-5.1) Magnesium Level 1.9 mg/dL (1.8-2.4) Glucose (Fingerstick) 193 mg/dL (70-99) Microbiology Micro Microbiology 10/13/20 Blood Culture - Final, Complete NO GROWTH AFTER 5 DAYS 10/13/20 Gram Stain Evaluation - Final, Complete 10/13/20 Respiratory Culture - Final, Complete 10/13/20 Urine Culture - Final, Complete 10/13/20 Antimicrobic Susceptibility - Final, Complete Physical Exam HEENT: Neck Supple W Full Motion Chest: Symmetric LUNGS: Other (NC) Heart: RRR (SR) Abdomen: Soft N/T Extremities: No Edema Neurology: alert, oriented, follow commands Assessment Assessment 1. Acute hypoxic respiratory failure secondary to Covid pneumonia: Initially noted on 09/11/2020. PACS? s/p extubation. Continue management per pulmonary team. 2. Atrial fibrillation with RVR during extubation attempt: maintaining SR 3. Coronary artery disease s/p single-vessel coronary artery bypass surgery with GUZMAN to LAD. clinically stable 4. Hypertension: better controlled 5. Hyperlipidemia 6. Diabetes mellitus type 2: Treat per IM 7. Hx of NICM: recovered. EF and WM nl per TTE 8. Moderate pulmonary HTN 9. Encephalopathy; resolved 10. Dysphagia: passed swallow eval Recommendations 1. Continue pulmonary optimization. Bipap PRN 2. Need outpt sleep study 3. Lasix therapy 4. Secondary prevention measuresAmiodarone for rhythm maintenance 5. MCOT 6. Follow up with Dr. Caldera on December 05 at 1:45 PM 7. SNU eval Justicifation of Admission Dx: Justifications for Admission: Justification of Admission Dx: Yes NIKHIL CALDERA MD 10/25/20 1253: CARDIO Progress Notes Assessment Assessment Patient seen and examined 10/24/20. Agree with FORKLIFT TECHNICIAN's assessment and plan. AF in the setting of extubation attempts, presently maintaining sinus rhythm. K replaced. Continue amiodarone. CAD status clinically stable. Planned transfer to SNU today JOEY PICHARDO APRN Oct 24, 2020 12:19 NIKHIL CALDERA MD Oct 25, 2020 12:53
[2020-10-24 19:19] VITALS: BP 123/60
[2020-10-24] MEDS: SIMVASTATIN 20 MG TABLET PO SCH (22:14)
[2020-10-24 22:45] VITALS: BP 133/72
[2020-10-24] MEDS: ZOLPIDEM 5 MG TABLET. PO PRN (23:01)
[2020-10-25] MEDS: PIPERACILLIN/TAZOBACTAM 3.375 GM in IV NORMAL SALINE 50ML 50 ML IV SCH ×6 (00:18→17:26)
[2020-10-25] MEDS: AA 4.25 %/CALCIUM/LYTES/D5W 1,000 ML IV SCH ×3 (00:19→20:22)
[2020-10-25 02:38] VITALS: BP 131/63
[2020-10-25] MEDS: INSULIN LISPRO 300 UNITS/3 ML VIAL. SQ SCH ×5 (06:00→21:00)
[2020-10-25 07:00] VITALS: BP 159/77
[2020-10-25] MEDS: LACTOBACILLUS RHAMNOSUS GG 1 CAPSULE. PO SCH ×2 (08:00→21:00)
[2020-10-25] MEDS: NYSTATIN TOPICAL POWDER 15GM BOTTLE. TP SCH ×2 (08:00→22:34)
[2020-10-25] MEDS: AMIODARONE HCL 200 MG TABLET. PO SCH (08:00)
[2020-10-25] MEDS: METOPROLOL TART IMMED RELEASE 25 MG TABLET. PO SCH ×2 (08:01→22:32)
[2020-10-25] MEDS: ASCORBIC ACID 1,000 MG TABLET PO SCH ×3 (08:01→22:31)
[2020-10-25] MEDS: ASPIRIN CHEWABLE 81 MG TABLET. PO SCH (08:02)
[2020-10-25] MEDS: PANTOPRAZOLE IV PUSH 40 MG VIAL. IVP SCH (08:02)
[2020-10-25] MEDS: SENNOSIDES/DOCUSATE 8.6/50MG TABLET. PO SCH ×2 (08:02→22:31)
[2020-10-25] MEDS: ZINC SULFATE 220 MG CAPSULE. PO SCH (08:02)
[2020-10-25] MEDS: FUROSEMIDE 40 MG TABLET. PO SCH (08:02)
[2020-10-25] MEDS: INSULIN GLARGINE SYRINGE. SQ SCH ×2 (08:16→22:35)
[2020-10-25] MEDS: MULTIVITAMINS,THERAPEUTIC 5 ML ORAL LIQUID. PEG SCH (08:16)
--- NOTE | 2020-10-25 08:52 | PDOC ---
PROGRESS NOTES Date of Service: DATE: 10/25/20 TIME: 08:51 Chief Complaint Chief Complaint Acute COVID-19 pneumonia Status post brief CODE BLUE [place] Acute hypoxic respiratory failure Sepsis - due to above Bradycardia Diabetes mellitus type 2 HTN HLD CAD Acute on chronic combined systolic and diastolic CHF h/o Cardiomyopathy - historically EF of 40-45%. History of Present Illness History of Present Illness 10/25/2020: Afebrile. Currently breathing on 2 L nasal cannula. Stable diffuse interstitial infiltrate superimposed on suspected chronic interstitial changes. amiodarone infusion, per cardiology. Convert meds to PO. Amiodarone for rhythm maintenance ST following to assess swallow safety; possible video swallow. Intubated 09/23- 10/14. long recovery time; would be good candidate for LTAC once stable from cardiac standpoint. Continue nightly BiPAP. 26 minutes spent reviewing charts, reviewing labs, reviewing imaging, discussion with RN. ACCEPTED AT [facility] 10-25 Patient was transferred to the ICU on the night of 10/19/20 due to ventricular tachycardia and brief asystole for which he required 1 minute of CPR. Atrial fibrillation with RVR during extubation attempt: maintaining SR Coronary artery disease s/p single-vessel coronary artery bypass surgery with GUZMAN to LAD. clinically stable Hypertension: better controlled Hyperlipidemia Diabetes mellitus type 2: Treat per IM NICM: recovered. EF and WM nl per TTE D/C PLANNING 34 MIN 10/24/2020: Afebrile. Currently breathing on 2 L nasal cannula. Stable diffuse interstitial infiltrate superimposed on suspected chronic interstitial changes. amiodarone infusion, per cardiology. Convert meds to PO. Amiodarone for rhythm maintenance ST following to assess swallow safety; possible video swallow. Intubated 09/23- 10/14. long recovery time; would be good candidate for LTAC once stable from cardiac standpoint. Continue nightly BiPAP. 26 minutes spent reviewing charts, reviewing labs, reviewing imaging, discussion with RN. ACCEPTED AT [facility] TOM[facility]ROW Patient was transferred to the ICU on the night of 10/19/20 due to ventricular tachycardia and brief asystole for which he required 1 minute of CPR. Atrial fibrillation with RVR during extubation attempt: maintaining SR Coronary artery disease s/p single-vessel coronary artery bypass surgery with GUZMAN to LAD. clinically stable Hypertension: better controlled Hyperlipidemia Diabetes mellitus type 2: Treat per IM NICM: recovered. EF and WM nl per TTE 10/23/2020: Afebrile. Currently breathing on 2 L nasal cannula. amiodarone infusion, per cardiology. ST following to assess swallow safety; possible video swallow. Intubated 09/23-. Likely looking at long recovery time; would be good candidate for LTAC once stable from cardiac standpoint. Continue nightly BiPAP. 26 minutes spent reviewing charts, reviewing labs, reviewing imaging, discussion with RN. ACCEPTED AT [facility] TOMORROW Patient was transferred to the ICU on the night of 10/19/20 due to ventricular tachycardia and brief asystole for which he required 1 minute of CPR. 10/22/2020: Afebrile. Currently breathing on 2 L nasal cannula. Continue amiodarone infusion, per cardiology. ST following to assess swallow safety; possible video swallow. Intubated . Likely looking at long recovery time; would be good candidate for LTAC once stable from cardiac standpoint. Continue nightly BiPAP. Critical care time 30 minutes spent reviewing charts, reviewing labs, reviewing imaging, discussion with RN. 10/21/2020 Patient seen and examined in the ICU, his is present she seems to be good support for him, patient is a lot more alert today, he is able to use 1 or 2 word sentences, is only requiring oxygen via nasal cannula, has a swallow study tomorrow morning Discussed with RN, chart reviewed 10/20: Patient seen and examined in the ICU. Currently on 3 L of oxygen per nasal cannula. His Jenni is present. Discussed with RN. Chart reviewed. Patient was resting with NAD. Transferred to ICU last night due to ventricular tachycardia with brief asystole requiring CPR. On 3L O2 per nasal canula. O2 Sat is 97%. Requiring nightly BIPAP with 40% FiO2. IV Potassium was initiated due to potassium level of 2.8. Started on Clinimix. On amiodarone drip, IV fluids, IV zosyn. Plan to place PICC line today. Chest X-ray indicated mild improvement. 10/19/2020 No acute events overnight. Patient saturating 93% on 5 L nasal cannula. Working with physical therapy at the time with at bedside. Definitely improvement since his ICU course. Failed swallow study we'll continue with n.p.o. Potassium of 2.7 and magnesium 1.5 today. Will replace IV electrolytes. Patient's chart, labs, images were reviewed and discussed with RN 10/18/2020 patient seen and examined in the ICU his Jenni is present she has good support for him currently on nasal cannula oxygen at 5 L Amado to bedside drainage rectal tube in place discussed with RN chart reviewed 10/17/2020 Patient seen and examined in the ICU His is present Currently back on BiPAP 25/07 with 40% FiO2 O2 sat is 99% I reviewed the chest x-rays and labs with his Chart reviewed Discussed with RN He remains critically ill Mr Morrissey is a 65-year-old white male w/ PMHx HTN, DM2, HLD, GERD, CAD s/p CABG 2011 presented to ED due to worsening cough and shortness of breath; patient also experiencing vomiting and diarrhea. Patient was recently diagnosed with COVID-19 on September 11 and has been doing well since that until a few days prior to arrival when his symptoms acutely worsened this morning. Has not received Covid vaccine. Close contacts at home have very similar symptoms. 09/21: Patient saturating 98% on 10 L nasal cannula. Increasing O2 requirements may consider pulmonology consult. On remdesivir, steroids 09/22: Patient saturating 91% on 10 L nasal cannula. Shortness of breath with ambulation. Combivent inhaler ordered today. 09/23: Patient is requiring increasing O2 requirements. Saturating 88% on 15 L nonrebreather and also nasal cannula. ICU transfer and intubated. 09/24: In ICU on vent. Afebrile, currently breathing FiO2 100%, PEEP 10. Final dose of remdesivir today. 09/25: Afebrile. On vent with FiO2 80%, PEEP 9. He has completed course of remdesivir. IV steroids for total dose 10 days and IV Zosyn. 09/26: Afebrile. Remains on vent with FiO2 70%, PEEP 8. Completed remdesivir. Continue prophylactic IV Zosyn. 09/27: No acute events overnight. Afebrile. On vent with FiO2 70%, PEEP 8. Cont IV antibiotics and steroids, with taper. Completed remdesivir. 09/28: Afebrile. On vent with FiO2 90%, PEEP 8. Completed remdesivir. Continue IV antibiotics. KUB with good OGT placement 09/29: Afebrile. On vent with increased oxygen requirement, FiO2 100%, PEEP 8. CXR increasing bilateral airspace opacities 09/30: On vent with FiO2 90%, PEEP 8. Afebrile. Steroids have been increased to dexamethasone 20 mg for 5 days, 10 mg for 5 days 10/01: No acute events overnight. Patient saturating 97% on vent settings of 22/500/80/8. Currently sedated and intubated. 10/02: Patient saturating 95% on vent settings of 22/500/75/7. ABG expected at 7.4 /72/28. Currently intubated and sedated. 10/03: No acute events overnight. Patient saturating 94% on vent settings of 22/500/75/7. Improved sugar control. 10/04: Saturating 100% on vent settings of 22/500/65/7. Last ABG show pH of 7.5 //28. Adjustments to vent settings by pulmonology. 10/05: No acute events overnight. Patient saturating 96% on vent settings of 20/500/65/7. Discussed prognosis with family. 10/06: No acute events overnight. Patient saturating 95% on vent settings of 20/500/50/6. No other concerns from nursing at this time. 10/07: No acute events overnight. Patient saturating 96% on vent settings of 20/500/50/6. T-max of 100.3. 10/08: Afebrile overnight. Sedated with propofol Versed and fentanyl PEEP of 6 FiO2 50% ABG 7.4 . Discussed with bedside. 10/09: T-max 100.3 F. Sedated with propofol Versed fentanyl, O2 saturations 96%, ABG 7.4 on FiO2 50% and normal PEEP of 6. D/w bedside. Good UOP 10/10: Afebrile. Sedation wean this morning respirations increased significantly back on sedation. ABG 7.40 FiO2 45% PEEP 6. Discussed with bedside O2 is significantly improving. 10/11: Afebrile. Agitated with sedation wean added Precedex. FiO2 40% PEEP 5. Will attempt sedation wean again today. D/w bedside. 10/12: Chest radiograph improved . ABG 7.4 8/35/95 on 40% FiO2 PEEP 5. Respiratory rate 28 with wean this morning and blood pressure elevated. Will try to wean again later today. Discussed with at bedside 10/13: Febrile 101.1 F overnight. Very agitated with attempted wean with increased BP ABG 7.471/38.4/71.2 on FiO2 40% PEEP 5. Respiratory blood and urine cultures for fever. Zosyn for coverage for possible VAP, f/u CXR 10/14: Afebrile. O2 saturations improved with furosemide. Urine output 2.7 L. K3.3 mag 1.7 WBC 7.6, Hb 9.3, platelets 158. Starting vent wean. Cultures pending, still on zosyn 10/13 Discussed with Pulmonology adding low-dose Haldol with vent weans will hold on propofol as QT sees around 470. Will maintain telemetry. As needed hydralazine and Vasotec for elevated blood pressure. Discussed with bedside CC time 34 minutes 10/15/2020: Patient seen and examined in the ICU with family present. Currently on BiPAP , 50% FiO2, and rate 20. Sedated with dexmedetomidine. On diltiazem drip. Amado to BSD. Rectal bag present. Triple lumen PICC in the right arm and right heel ulcer present. Chest x-ray from today showed stable diffuse bilateral opacities.Discussed with RN. Chart reviewed. 10/16/2020 Patient seen and examined in the ICU His is present Currently on Ventimask 50% FiO2 Chart reviewed Discussed with RN He is still quite ill Vitals Vitals Vital Signs Date Time Temp Pulse Resp B/P (MAP) Pulse Ox O2 Delivery O2 Flow Rate FiO2 10/25/20 08:01 75 159/77 10/25/20 07:59 17 93 Room Air 10/25/20 07:23 2.0 10/25/20 07:00 98.0 98.0 Physical Exam General: Alert, Oriented X3, Cooperative, No acute distress Heart: Regular rate Lungs: Clear, Crackles Abdomen: Normal bowel sounds, Soft Extremities: No clubbing, No cyanosis Skin: No rashes, No significant lesion Labs LABS Laboratory Tests Test 10/24/20 09:20 10/24/20 12:03 10/24/20 16:53 10/24/20 22:59 Potassium Level 3.8 mmol/L (3.5-5.1) Magnesium Level 1.9 mg/dL (1.8-2.4) Glucose (Fingerstick) 193 mg/dL (70-99) 190 mg/dL (70-99) 152 mg/dL (70-99) Test 10/25/20 06:46 Glucose (Fingerstick) 156 mg/dL (70-99) Assessment and Plan Assessmemt and Plan Problems Medical Problems: (1) Bilateral pulmonary infiltrates on CXR Status: Acute (2) Fever Status: Acute (3) Hypoxia Status: Acute (4) Lab test positive for detection of COVID-19 virus Status: Acute Comment Review of Relevant I have reviewed the following items lukasz (where applicable) has been applied. Labs Laboratory Tests Test 10/23/20 11:49 10/23/20 17:00 10/23/20 21:35 10/24/20 00:09 Glucose (Fingerstick) 234 mg/dL (70-99) 143 mg/dL (70-99) 166 mg/dL (70-99) 180 mg/dL (70-99) Test 10/24/20 05:48 10/24/20 09:20 10/24/20 12:03 10/24/20 16:53 Glucose (Fingerstick) 141 mg/dL (70-99) 193 mg/dL (70-99) 190 mg/dL (70-99) Potassium Level 3.8 mmol/L (3.5-5.1) Magnesium Level 1.9 mg/dL (1.8-2.4) Test 10/24/20 22:59 10/25/20 06:46 Glucose (Fingerstick) 152 mg/dL (70-99) 156 mg/dL (70-99) Laboratory Tests Test 10/24/20 09:20 10/24/20 12:03 10/24/20 16:53 10/24/20 22:59 Potassium Level 3.8 mmol/L (3.5-5.1) Magnesium Level 1.9 mg/dL (1.8-2.4) Glucose (Fingerstick) 193 mg/dL (70-99) 190 mg/dL (70-99) 152 mg/dL (70-99) Test 10/25/20 06:46 Glucose (Fingerstick) 156 mg/dL (70-99) Microbiology 10/13/20 Blood Culture - Final, Complete NO GROWTH AFTER 5 DAYS 10/13/20 Gram Stain Evaluation - Final, Complete 10/13/20 Respiratory Culture - Final, Complete 10/13/20 Urine Culture - Final, Complete 10/13/20 Antimicrobic Susceptibility - Final, Complete Medications Current Medications Sodium Chloride 1,000 ml @ 1,000 mls/hr 1X ONCE IV Last administered on 09/20/20at 14:45; Start 09/20/20 at 14:30; Stop 09/20/20 at 15:29; Status DC Dexamethasone Sodium Phosphate (Decadron) 10 mg 1X ONCE IV Last administered on 09/20/20at 14:50; Start 09/20/20 at 14:30; Stop 09/20/20 at 14:31; Status DC Piperacillin Sod/ Tazobactam Sod 3.375 gm/Sodium Chloride 50 ml @ 100 mls/hr 1X ONCE IV Last administered on 09/20/20at 15:22; Start 09/20/20 at 15:30; Stop 09/20/20 at 15:59; Status DC Acetaminophen (Tylenol) 1,000 mg 1X ONCE PO Last administered on 09/20/20at 15:22; Start 09/20/20 at 15:30; Stop 09/20/20 at 15:31; Status DC Ondansetron HCl (Zofran) 4 mg PRN Q8HRS PRN IVP NAUSEA/VOMITING; Start 09/20/20 at 15:45; Stop 09/20/20 at 17:11; Status DC Morphine Sulfate (Morphine Sulfate) 2 mg PRN Q2HR PRN IVP PAIN; Start 09/20/20 at 15:45; Stop 09/21/20 at 15:44; Status DC Acetaminophen (Tylenol) 650 mg PRN Q4HRS PRN PO FEVER > 100.3'F; Start 09/20/20 at 15:45; Stop 09/21/20 at 15:44; Status Cancel Insulin Human Lispro (HumaLOG) 0-5 UNITS TIDWMEALS SQ Last administered on 09/21/20at 12:34; Start 09/20/20 at 17:00; Stop 09/21/20 at 13:33; Status DC Dextrose (Dextrose 50%-Water Syringe) 12.5 gm PRN Q15MIN PRN IV SEE COMMENTS; Start 09/20/20 at 15:45 Ondansetron HCl (Zofran) 4 mg PRN Q6HRS PRN IVP NAUSEA/VOMITING; Start 09/20/20 at 17:00; Stop 10/13/20 at 07:54; Status DC Calcium Carbonate/ Glycine (Tums) 500 mg PRN Q3HRS PRN PO UPSET STOMACH Last administered on 09/23/20at 11:47; Start 09/20/20 at 17:00 Zolpidem Tartrate (Ambien) 5 mg PRN QHS PRN PO INSOMNIA, MAY REPEAT IN 1HR; Start 09/20/20 at 17:00; Stop 10/13/20 at 07:54; Status DC Info (Non-Icu Electrolyte Protocol) 1 ea PRN DAILY PRN MC SEE COMMENTS; Start 09/20/20 at 17:00; Status Cancel Oxycodone/ Acetaminophen (Percocet 5/325) 1 tab PRN Q4HRS PRN PO MILD PAIN, 1ST CHOICE; Start 09/20/20 at 17:00 Oxycodone/ Acetaminophen (Percocet 5/325) 2 tab PRN Q4HRS PRN PO MODERATE PAIN, SEVERE PAIN Last administered on 10/25/20at 07:59; Start 09/20/20 at 17:00 Acetaminophen (Tylenol) 650 mg PRN Q6HRS PRN PO Headaches, Temp > 101.5F Last administered on 10/14/20at 09:03; Start 09/20/20 at 17:00 Senna/Docusate Sodium (Senna Plus) 1 tab BID PO Last administered on 10/25/20at 08:02; Start 09/20/20 at 21:00 Enoxaparin Sodium (Lovenox 40mg Syringe) 40 mg Q12HR SQ Last administered on 10/15/20at 07:46; Start 09/20/20 at 17:00; Stop 10/15/20 at 13:58; Status DC Potassium Chloride (Klor-Con) 40 meq 1X ONCE PO Last administered on 09/20/20at 17:34; Start 09/20/20 at 17:00; Stop 09/20/20 at 17:06; Status DC Piperacillin Sod/ Tazobactam Sod (Zosyn Per Pharmacy) 1 each PRN DAILY PRN MC SEE COMMENTS; Start 09/20/20 at 17:00; Stop 10/01/20 at 08:49; Status DC Azithromycin (Zithromax) 500 mg 1X ONCE PO Last administered on 09/20/20at 17:34; Start 09/20/20 at 17:00; Stop 09/20/20 at 17:07; Status DC Dexamethasone Sodium Phosphate (Decadron) 6 mg DAILY IVP Last administered on 09/28/20at 08:02; Start 09/21/20 at 09:00; Stop 09/29/20 at 07:20; Status DC Guaifenesin/ Codeine Phosphate (Robitussin Ac) 5 ml PRN Q6HRS PRN PO COUGH Last administered on 09/23/20at 11:49; Start 09/20/20 at 17:00 Multivitamins (Thera M Plus) 1 tab DAILY PO Last administered on 09/28/20at 08:02; Start 09/21/20 at 09:00; Stop 09/29/20 at 07:56; Status DC Aspirin (Aspirin Chewable) 81 mg DAILYWBKFT PO Last administered on 10/25/20at 08:02; Start 09/21/20 at 08:00 Metoprolol Succinate (Toprol Xl) 12.5 mg HS PO Last administered on 09/22/20at 20:28; Start 09/20/20 at 21:00; Stop 09/25/20 at 14:13; Status DC Pantoprazole Sodium (Protonix) 40 mg DAILYAC PO Last administered on 09/23/20at 09:28; Start 09/21/20 at 07:30; Stop 09/24/20 at 09:14; Status DC Simvastatin (Zocor) 20 mg QHS PO Last administered on 10/24/20at 22:14; Start 09/20/20 at 21:00 Piperacillin Sod/ Tazobactam Sod 3.375 gm/Sodium Chloride 50 ml @ 100 mls/hr Q6HRS IV Last administered on 10/01/20at 06:00; Start 09/20/20 at 18:00; Stop 10/01/20 at 07:01; Status DC Remdesivir 200 mg/ Sodium Chloride 210 ml @ 210 mls/hr 1X ONCE IV Last administered on 09/20/20 21:12; Start 09/20/20 at 20:00; Stop 09/20/20 at 20:59; Status DC Remdesivir 100 mg/ Sodium Chloride 230 ml @ 460 mls/hr Q24H IV Last administered on 09/24/20 19:28; Start 09/21/20 at 20:00; Stop 09/24/20 at 20:29; Status DC Insulin Glargine (Lantus Syringe) 20 unit BID SQ Last administered on 10/01/20at 08:34; Start 09/21/20 at 21:00; Stop 10/01/20 at 12:36; Status DC Insulin Human Lispro (HumaLOG) 0-9 UNITS TIDWMEALS SQ Last administered on 09/23/20 17:28; Start 09/21/20 at 17:00; Stop 09/23/20 at 23:06; Status DC Lactobacillus Rhamnosus (Culturelle) 1 cap BID PO Last administered on 09/23 09:28; Start 09/21/20 at 21:00; Stop 09/24/20 at 09:21; Status DC Ascorbic Acid (Vitamin C) 1,000 mg TID PO Last administered on 10/25/20 08:01; Start 09/21/20 at 21:00 Zinc Sulfate (Orazinc) 220 mg DAILY PO Last administered on 10/25/20 08:02; Start 09/22/20 at 09:00 Insulin Human Lispro (HumaLOG) 5 units TIDWMEALS SQ Last administered on 09/23/20 17:29; Start 09/22/20 at 12:00; Stop 09/24/20 at 09:18; Status DC Albuterol/ Ipratropium (Combivent Respimat 20-100 Mcg) 1 puff PRN QID PRN INH SHORTNESS OF BREATH Last administered on 09/23/20 09:28; Start 09/22/20 at 12:45 Sterile Water (WATER for RESP) 1,000 ml CONT PRN INH VIA VAPOTHERM DEVICE Last administered on 09/23/20 14:55; Start 09/23/20 at 12:45; Stop 09/24/20 at 09:20; Status DC Dexmedetomidine HCl 400 mcg/ Sodium Chloride 100 ml @ 0 mls/hr CONT PRN IV PER PROTOCOL Last administered on 10/18/20at 06:02; Start 09/23/20 at 18:00 Sodium Chloride 500 ml @ 500 mls/hr 1X PRN PRN IV SEE COMMENTS; Start 09/23/20 at 18:00 Atropine Sulfate (ATROPINE 0.5mg SYRINGE) 0.5 mg PRN Q5MIN PRN IV SEE COMMENTS; Start 09/23/20 at 18:00 Lorazepam (Ativan Inj) 0.25 mg 1X ONCE IVP Last administered on 09/23/20at 20:23; Start 09/23/20 at 20:15; Stop 09/23/20 at 20:16; Status DC Fentanyl Citrate 30 ml @ 0 mls/hr CONT PRN IV SEE PROTOCOL Last administered on 09/29/20at 14:27; Start 09/23/20 at 21:15; Stop 09/29/20 at 22:00; Status DC Propofol 100 ml @ 0 mls/hr CONT PRN IV PER PROTOCOL Last administered on 10/14/20at 03:25; Start 09/23/20 at 21:15; Stop 10/17/20 at 10:30; Status DC Midazolam HCl 100 ml @ 0 mls/hr CONT PRN IV SEE PROTOCOL Last administered on 10/08/20at 20:48; Start 09/23/20 at 21:15; Stop 10/17/20 at 10:30; Status DC Succinylcholine Chloride (Anectine) 200 mg STK-MED ONCE .ROUTE ; Start 09/23/20 at 21:40; Stop 09/23/20 at 21:40; Status DC Insulin Human Lispro (HumaLOG) 0-9 UNITS Q6HRS SQ Last administered on 10/24/20a t 17:34; Start 09/24/20 at 00:00 Succinylcholine Chloride (Anectine) 200 mg 1X ONCE IV Last administered on 09/23/20at 21:44; Start 09/24/20 at 03:00; Stop 09/24/20 at 03:01; Status DC Pantoprazole Sodium (PROTONIX VIAL for IV PUSH) 40 mg DAILY IVP Last administered on 10/25/20at 08:02; Start 09/25/20 at 09:00 Benzocaine (Americaine) 57 spray STK-MED ONCE TP ; Start 09/24/20 at 15:00; Stop 09/25/20 at 10:40; Status DC Potassium Chloride/Water 100 ml @ 100 mls/hr Q1H IV ; Start 09/25/20 at 10:45; Stop 09/25/20 at 12:44; Status UNV Potassium Chloride/Water 100 ml @ 100 mls/hr Q1H IV Last administered on 09/25/20at 14:44; Start 09/25/20 at 11:00; Stop 09/25/20 at 15:01; Status DC Sodium Chloride 1,000 ml @ 50 mls/hr Q20H IV Last administered on 10/09/20at 05:17; Start 09/28/20 at 15:00; Stop 10/10/20 at 09:01; Status DC Dexamethasone Sodium Phosphate (Decadron) 20 mg DAILY IVP Last administered on 09/30/20at 07:48; Start 09/29/20 at 09:00; Stop 10/01/20 at 07:01; Status DC Multivitamins/ Minerals Therapeutic (Centrum Multivit-Mineral Liq) 5 ml DAILY PEG Last administered on 10/14/20at 08:58; Start 09/29/20 at 09:00 Fentanyl Citrate 55 ml @ 1.5 mls/hr CONT PRN IV SEE I/O Last administered on 10/08/20at 10:28; Start 09/29/20 at 21:15; Stop 10/09/20 at 16:29; Status DC Furosemide (Lasix) 20 mg 1X ONCE IVP Last administered on 09/30/20at 11:52; Start 09/30/20 at 11:00; Stop 09/30/20 at 11:01; Status DC Dexamethasone Sodium Phosphate (Decadron) 10 mg DAILY IVP Last administered on 10/03/20at 07:32; Start 10/01/20 at 09:00; Stop 10/03/20 at 11:01; Status DC Insulin Glargine (Lantus Syringe) 25 unit BID SQ Last administered on 10/25/20at 08:16; Start 10/01/20 at 21:00 Nystatin (Nystop) 1 richard BID TP Last administered on 10/25/20at 08:00; Start 10/07/20 at 09:00 Magnesium Sulfate/ Dextrose 100 ml @ 100 mls/hr 1X ONCE IV Last administered on 10/08/20at 11:04; Start 10/08/20 at 11:00; Stop 10/08/20 at 11:59; Status DC Info (Icu Electrolyte Protocol) 1 ea CONT PRN PRN MC SEE COMMENTS; Start 10/08/20 at 10:30 Magnesium Sulfate 50 ml @ 25 mls/hr 1X ONCE IV Last administered on 10/09/20at 08:36; Start 10/09/20 at 07:45; Stop 10/09/20 at 09:44; Status DC Fentanyl Citrate 30 ml @ 1.5 mls/hr CONT PRN PRN IV SEE PROTOCOL Last administered on 10/14/20at 09:20; Start 10/09/20 at 16:30; Stop 10/17/20 at 10:30; Status DC Hydralazine HCl (Apresoline Inj) 10 mg PRN Q4HRS PRN IVP ELEVATED BP, SEE C OMMENTS Last administered on 10/20/20at 15:37; Start 10/12/20 at 11:15 Vecuronium [place] (Norcuron Bolus) 6 mg PRN Q6HRS PRN IV VENTILATOR COMPLIANCE Last administered on 10/12/20at 23:39; Start 10/12/20 at 23:45; Stop 10/17/20 at 10:30; Status DC Haloperidol Lactate (Haldol Inj) 5 mg Q8HRS IVP ; Start 10/13/20 at 08:30; Stop 10/13/20 at 09:42; Status DC Potassium Bicarbonate (Potassium Effervescent Tablet) 40 meq 1X ONCE PO Last administered on 10/13/20at 08:41; Start 10/13/20 at 08:00; Stop 10/13/20 at 08:09; Status DC Enalaprilat (Vasotec Inj) 1.25 mg PRN Q6HRS PRN IVP HYPERTENSION- 2nd choice Last administered on 10/16/20at 12:42; Start 10/13/20 at 08:30 Haloperidol Lactate (Haldol Inj) 2.5 mg PRN Q8HRS PRN IVP Agitation during vent wean Last administered on 10/14/20at 17:05; Start 10/13/20 at 09:45; Stop 10/17/20 at 10:30; Status DC Piperacillin Sod/ Tazobactam Sod 3.375 gm/Sodium Chloride 50 ml @ 100 mls/hr Q6HRS IV Last administered on 10/25/20at 06:00; Start 10/13/20 at 11:00 Piperacillin Sod/ Tazobactam Sod (Zosyn Per Pharmacy) 1 each PRN DAILY PRN MC SEE COMMENTS; Start 10/13/20 at 09:45 Furosemide (Lasix) 40 mg 1X ONCE IVP Last administered on 10/13/20at 15:55; Start 10/13/20 at 14:45; Stop 10/13/20 at 14:46; Status DC Potassium Chloride/Water 100 ml @ 100 mls/hr 1X ONCE IV Last administered on 10/13/20at 15:55; Start 10/13/20 at 15:00; Stop 10/13/20 at 15:59; Status DC Magnesium Sulfate 50 ml @ 25 mls/hr 1X ONCE IV Last administered on 10/14/20at 08:59; Start 10/14/20 at 07:30; Stop 10/14/20 at 09:29; Status DC Potassium Bicarbonate (Potassium Effervescent Tablet) 40 meq 1X ONCE PO Last administered on 10/14/20at 08:57; Start 10/14/20 at 07:30; Stop 10/14/20 at 07:31; Status DC Metoprolol Tartrate (Lopressor Vial) 5 mg PRN Q5MIN PRN IVP TACHYCARDIA Last administered on 10/15/20at 09:17; Start 10/15/20 at 08:45 Fentanyl Citrate (Fentanyl 2ml Vial) 50 mcg PRN Q2HR PRN IVP PAIN Last administ ered on 10/23/20at 06:20; Start 10/15/20 at 08:45 Diltiazem HCl 125 mg/Sodium Chloride 125 ml @ 5 mls/hr CONT PRN IV SEE I/O MOI RD Last administered on 10/15/20at 16:04; Start 10/15/20 at 09:30; Stop 10/16/20 at 12:56; Status DC Furosemide (Lasix) 40 mg DAILY IVP Last administered on 10/17/20at 07:41; Start 10/15/20 at 11:00; Stop 10/17/20 at 09:01; Status DC Potassium Chloride/Water 100 ml @ 100 mls/hr Q1H IV Last administered on 10/15/20at 11:24; Start 10/15/20 at 11:00; Stop 10/15/20 at 12:59; Status DC Digoxin (Lanoxin) 500 mcg 1X ONCE IV Last administered on 10/15/20at 11:11; Start 10/15/20 at 11:15; Stop 10/15/20 at 11:16; Status DC Heparin Sodium/ Dextrose 250 ml @ 0 mls/hr CONT PRN IV PER PROTOCOL Last administered on 10/16/20at 08:17; Start 10/15/20 at 14:00; Stop 10/16/20 at 12:56; Status DC Heparin Sodium (Porcine) (Heparin Sodium) 2,850 unit PRN Q6HRS PRN IV FOR UFH LEVEL LESS THAN 0.2 Last administered on 10/16/20at 11:41; Start 10/15/20 at 14:00; Stop 10/16/20 at 12:56; Status DC Perflutren Protein Type A Microsphe (Optison) 0.66 mg 1X ONCE IV Last administered on 10/16/20at 07:30; Start 10/16/20 at 07:30; Stop 10/16/20 at 07:31; Status DC Perflutren Protein Type A Microsphe (Optison) 0.66 mg STK-MED ONCE IV ; Start 10/16/20 at 07:43; Stop 10/16/20 at 07:43; Status DC Magnesium Sulfate 50 ml @ 25 mls/hr 1X ONCE IV Last administered on 10/16/20at 09:52; Start 10/16/20 at 09:45; Stop 10/16/20 at 11:44; Status DC Enoxaparin Sodium (Lovenox 40mg Syringe) 40 mg Q24H SQ Last administered on 10/24/20at 12:14; Start 10/16/20 at 13:00 Magnesium Sulfate 50 ml @ 25 mls/hr 1X ONCE IV Last administered on 10/17/20at 07:41; Start 10/17/20 at 07:00; Stop 10/17/20 at 08:59; Status DC Metoprolol Tartrate (Lopressor Vial) 5 mg Q6HRS IVP Last administered on 10/17/20at 17:20; Start 10/17/20 at 13:00; Stop 10/19/20 at 12:36; Status DC Nitroglycerin (Nitro-Bid Oint) 1 inch Q6HRS TP Last administered on 10/23/20at 06:15; Start 10/17/20 at 13:00; Stop 10/23/20 at 11:22; Status DC Furosemide (Lasix) 40 mg DAILY IVP Last administered on 10/19/20at 08:37; Start 10/18/20 at 09:00; Stop 10/23/20 at 11:22; Status DC Ondansetron HCl (Zofran) 4 mg STK-MED ONCE .ROUTE ; Start 10/17/20 at 14:08; Stop 10/17/20 at 14:09; Status DC Ondansetron HCl (Zofran) 4 mg PRN Q6HRS PRN IVP NAUSEA/VOMITING Last ad ministered on 10/22/20at 21:49; Start 10/17/20 at 14:45 Adenosine (Adenocard) 6 mg 1X ONCE IV Last administered on 10/17/20at 22:00; Start 10/17/20 at 22:00; Stop 10/17/20 at 22:01; Status DC Adenosine (Adenocard) 12 mg 1X ONCE IV Last administered on 10/17/20at 22:15; Start 10/17/20 at 22:15; Stop 10/17/20 at 22:16; Status DC Diltiazem HCl 125 mg/Sodium Chloride 125 ml @ 5 mls/hr CONT PRN IV SEE I/O RECORD Last administered on 10/19/20at 18:34; Start 10/17/20 at 21:45 Diltiazem HCl (Cardizem Iv Push) 10 mg 1X ONCE IVP Last administered on 10/17/20at 22:05; Start 10/17/20 at 22:00; Stop 10/17/20 at 22:01; Status DC Digoxin (Lanoxin) 250 mcg 1X ONCE IV Last administered on 10/17/20at 23:53; Start 10/18/20 at 00:00; Stop 10/18/20 at 00:01; Status DC Digoxin (Lanoxin) 250 mcg 1X ONCE IV Last administered on 10/18/20at 00:46; Start 10/18/20 at 00:30; Stop 10/18/20 at 00:31; Status DC Sodium Chloride 1,000 ml @ 80 mls/hr [id number] IV Last administered on 10/19/20at 17:46; Start 10/18/20 at 06:00; Stop 10/20/20 at 10:30; Status DC Magnesium Sulfate 50 ml @ 25 mls/hr 1X ONCE IV Last administered on 10/18/20at 11:02; Start 10/18/20 at 08:15; Stop 10/18/20 at 10:14; Status DC Potassium Chloride/Water 100 ml @ 50 mls/hr 1X ONCE IV ; Start 10/18/20 at 09:00; Stop 10/18/20 at 08:37; Status DC Potassium Chloride/Water 100 ml @ 50 mls/hr Q2H IV Last administered on 10/18/20at 11:01; Start 10/18/20 at 09:00; Stop 10/18/20 at 12:59; Status DC Amiodarone HCl 150 mg/Dextrose 103 ml @ 600 mls/hr 1X ONCE IV Last administered on 10/18/20at 14:55; Start 10/18/20 at 13:30; Stop 10/18/20 at 13:45; Status DC Amiodarone HCl 450 mg/Dextrose 259 ml @ 0 mls/hr CONT PRN IV SEE I/O RECORD Last administered on 10/19/20at 09:47; Start 10/18/20 at 13:30; Stop 10/19/20 at 13:29; Status DC Acetaminophen (Tylenol Supp) 650 mg PRN Q6HRS PRN [place] MILD PAIN / TEMP > 100.3'F Last administered on 10/18/20at 23:49; Start 10/18/20 at 23:45 Magnesium Sulfate 50 ml @ 25 mls/hr 1X ONCE IV Last administered on 10/19/20at 13:37; Start 10/19/20 at 13:30; Stop 10/19/20 at 15:29; Status DC Potassium Chloride/Water 100 ml @ 100 mls/hr Q1H IV Last administered on 10/19/20at 17:36; Start 10/19/20 at 13:30; Stop 10/19/20 at 15:29; Status DC Metoprolol Tartrate (Lopressor Vial) 5 mg PRN Q6HRS PRN IVP SEE COMMENTS; Start 10/19/20 at 12:45 Potassium Chloride/Water 20 ml @ 20 mls/hr Q1H IV ; Start 10/19/20 at 15:30; Stop 10/19/20 at 17:29; Status Cancel Sodium Chloride (Normal Saline Flush) 10 ml QSHIFT PRN IV AFTER MEDS AND BLOOD DRAWS; Start 10/19/20 at 21:45 Sodium Chloride (Normal Saline Flush) 20 ml QSHIFT PRN IV AFTER MEDS AND BLOOD DRAWS; Start 10/19/20 at 21:45 Potassium Chloride/Water 100 ml @ 100 mls/hr Q1H IV Last administered on 10/20/20at 04:30; Start 10/20/20 at 00:30; Stop 10/20/20 at 04:29; Status DC Magnesium Sulfate 50 ml @ 25 mls/hr 1X ONCE IV Last administered on 10/20/20at 00:31; Start 10/20/20 at 00:30; Stop 10/20/20 at 02:29; Status DC Amiodarone HCl 450 mg/Dextrose 259 ml @ 0 mls/hr 1X ONCE IV Last administered on 10/20/20at 01:00; Start 10/20/20 at 01:00; Stop 10/20/20 at 01:01; Status DC Potassium Chloride/Water 100 ml @ 100 mls/hr Q1H IV Last administered on 10/20/20at 16:35; Start 10/20/20 at 09:00; Stop 10/20/20 at 16:59; Status DC Amino Acids/ Electrolytes/ Dextrose 1,000 ml @ 80 mls/hr [id number] IV Last administered on 10/25/20at 00:19; Start 10/20/20 at 08:30 Magnesium Sulfate 50 ml @ 25 mls/hr 1X ONCE IV Last administered on 10/20/20at 20:44; Start 10/20/20 at 21:00; Stop 10/20/20 at 22:59; Status DC Amiodarone HCl 150 mg/Dextrose 103 ml @ 600 mls/hr 1X ONCE IV Last administered on 10/21/20at 03:04; Start 10/21/20 at 03:30; Stop 10/21/20 at 03:40; Status DC Amiodarone HCl 450 mg/Dextrose 259 ml @ 0 mls/hr CONT PRN IV SEE I/O RECORD Last administered on 10/21/20at 11:06; Start 10/21/20 at 03:30; Stop 10/22/20 at 03:29; Status DC Potassium Chloride/Water 100 ml @ 100 mls/hr Q1H IV Last administered on 10/21/20at 04:01; Start 10/21/20 at 03:30; Stop 10/21/20 at 05:29; Status DC Potassium Chloride/Water 100 ml @ 100 mls/hr Q1H IV Last administered on 10/21/20at 14:44; Start 10/21/20 at 11:00; Stop 10/21/20 at 14:59; Status DC Potassium Chloride/Water 100 ml @ 100 mls/hr Q1H IV Last administered on 10/21/20at 18:14; Start 10/21/20 at 15:00; Stop 10/21/20 at 16:59; Status DC Amiodarone HCl 450 mg/Dextrose 259 ml @ 0 mls/hr CONT PRN IV SEE I/O RECORD Last administered on 10/22/20at 21:11; Start 10/22/20 at 02:00; Stop 10/23/20 at 01:59; Status DC Potassium Chloride/Water 100 ml @ 100 mls/hr Q1H IV Last administered on 10/22/20at 13:02; Start 10/22/20 at 12:00; Stop 10/22/20 at 13:59; Status DC Barium Sulfate (Varibar Thin Liquid Apple) 148 gm 1X ONCE PO Last administered on 10/23/20at 10:24; Start 10/23/20 at 10:00; Stop 10/23/20 at 10:01; Status DC Amiodarone HCl (Cordarone) 200 mg DAILY PO Last administered on 10/25/20at 08:00; Start 10/23/20 at 12:00 Metoprolol Tartrate (Lopressor) 12.5 mg BID PO Last administered on 10/25/20at 08:01; Start 10/23/20 at 12:00 Amlodipine Besylate (Norvasc) 5 mg DAILY PO Last administered on 10/25/20at 08:0 1; Start 10/23/20 at 12:00 Furosemide (Lasix) 20 mg DAILY PO Last administered on 10/25/20at 08:02; Start 10/24/20 at 09:00 Zolpidem Tartrate (Ambien) 5 mg PRN QHS PRN PO INSOMNIA Last administered on 10/24/20at 23:01; Start 10/23/20 at 21:30 Lactobacillus Rhamnosus (Culturelle) 1 cap BID PO Last administered on 10/25/20at 08:00; Start 10/24/20 at 09:00 Active Scripts Active Reported Icosapent Ethyl 1 Gm Capsule 2 Cap PO BID Metformin Hcl 1,000 Mg Tablet 1 Tab PO BID Rybelsus (Semaglutide) 7 Mg Tablet 1 Tab PO DAILY Farxiga (Dapagliflozin Propanediol) 10 Mg Tablet 1 Tab PO DAILY Trelegy Ellipta 100-62.5-25 (Fluticasone/Umeclidin/Vilanter) 1 Each Blst.w.dev 1 Puff INH DAILY Benzonatate 200 Mg Capsule 1 Cap PO TID PRN Montelukast Sodium 10 Mg Tablet 1 Tab PO DAILY Loratadine 10 Mg Tablet 1 Tab PO DAILY Fluticasone Propionate Nasal [place] (Fluticasone Propionate) 16 Gm [place].susp 1 Sprays NS BID Simvastatin 20 Mg Tablet 1 Tab PO QHS Vitals/I & O Vital Sign - Last 24 Hours 10/24/20 10/24/20 10/24/20 10/24/20 09:09 09:10 09:10 11:00 Temp 98.5 98.5 Pulse 68 68 68 77 Resp 20 B/P (MAP) 163/77 163/77 163/77 143/77 (99) Pulse Ox 95 O2 Delivery Nasal Cannula O2 Flow Rate 2.0 10/24/20 10/24/20 10/24/20 10/24/20 19:19 20:00 22:13 22:45 Temp 98.2 98.7 98.2 98.7 Pulse 73 73 82 Resp 16 16 B/P (MAP) 123/60 (81) 123/60 133/72 (92) Pulse Ox 95 91 O2 Delivery Room Air Nasal Cannula Room Air O2 Flow Rate 2.0 10/25/20 10/25/20 10/25/20 10/25/20 02:38 07:00 07:23 07:59 Temp 98.4 98.0 98.4 98.0 Pulse 64 75 Resp 16 20 17 B/P (MAP) 131/63 (85) 159/77 (104) Pulse Ox 91 93 93 O2 Delivery Room Air Room Air Room Air O2 Flow Rate 2.0 10/25/20 10/25/20 10/25/20 08:00 08:01 08:01 Pulse 75 75 75 B/P (MAP) 159/77 159/77 159/77 Intake and Output 10/24/20 10/24/20 10/25/20 15:00 23:00 07:00 Intake Total 180 ml Output Total 3450 ml 400 ml Balance -3270 ml -400 ml Justicifation of Admission Dx: Justifications for Admission: Justification of Admission Dx: Yes WILD SHAW MD Oct 25, 2020 08:51
[2020-10-25 09:01] LABS: MAGNESIUM 2.1 mg/dL (1.8-2.4); POTASSIUM 3.9 mmol/L (3.5-5.1)
--- NOTE | 2020-10-25 09:44 | PDOC3 ---
Discharge Summary Date of Admission: Sep 20, 2020 Date of Discharge: Oct 25, 2020 Follow-Up: 1-2 days Admitting Diagnosis comment: HPI Mr Morrissey is a 65-year-old white male w/ PMHx HTN, DM2, HLD, GERD, CAD s/p CABG 2011 presented to ED due to worsening cough and shortness of breath; patient also experiencing vomiting and diarrhea. Patient was recently diagnosed with COVID-19 on September 11 and has been doing well since that until a few days prior to arrival when his symptoms acutely worsened ON er visit /Has not received Covid vaccine. Close contacts at home have very similar symptoms. transfer meds see [facility] none consults, cardiology, pulmonary discharge dx Chief Complaint Acute COVID-19 pneumonia Status post brief CODE BLUE Torsades Acute hypoxic respiratory failure Sepsis - due to above Bradycardia Diabetes mellitus type 2 HTN HLD CAD Acute on chronic combined systolic and diastolic CHF h/o Cardiomyopathy - historically EF of 40-45%. History of Present Illness History of Present Illness 10/25/2020: Afebrile. Currently breathing on 2 L nasal cannula. Stable diffuse interstitial infiltrate superimposed on suspected chronic interstitial changes. amiodarone infusion, per cardiology. Convert meds to PO. Amiodarone for rhythm maintenance ST following to assess swallow safety; possible video swallow. Intubated 09/23- 10/14. long recovery time; would be good candidate for LTAC once stable from cardiac standpoint. Continue nightly BiPAP. 26 minutes spent reviewing charts, reviewing labs, reviewing imaging, discussion with RN. ACCEPTED AT [facility] 10-25 Patient was transferred to the ICU on the night of 10/19/20 due to ventricular tachycardia and brief asystole for which he required 1 minute of CPR. Atrial fibrillation with RVR during extubation attempt: maintaining SR Coronary artery disease s/p single-vessel coronary artery bypass surgery with GUZMAN to LAD. clinically stable Hypertension: better controlled Hyperlipidemia Diabetes mellitus type 2: Treat per IM NICM: recovered. EF and WM nl per TTE D/C PLANNING 34 MIN 10/24/2020: Afebrile. Currently breathing on 2 L nasal cannula. Stable diffuse interstitial infiltrate superimposed on suspected chronic interstitial changes. amiodarone infusion, per cardiology. Convert meds to PO. Amiodarone for rhythm maintenance ST following to assess swallow safety; possible video swallow. Intubated 09/23- 10/14. long recovery time; would be good candidate for LTAC once stable from cardiac standpoint. Continue nightly BiPAP. 26 minutes spent reviewing charts, reviewing labs, reviewing imaging, discussion with RN. ACCEPTED AT [facility] Patient was transferred to the ICU on the night of 10/19/20 due to ventricular tachycardia and brief asystole for which he required 1 minute of CPR. Atrial fibrillation with RVR during extubation attempt: maintaining SR Coronary artery disease s/p single-vessel coronary artery bypass surgery with GUZMAN to LAD. clinically stable Hypertension: better controlled Hyperlipidemia Diabetes mellitus type 2: Treat per IM NICM: recovered. EF and WM nl per TTE 10/23/2020: Afebrile. Currently breathing on 2 L nasal cannula. amiodarone infusion, per cardiology. ST following to assess swallow safety; possible video swallow. Intubated 10/14. Likely looking at long recovery time; would be good candidate for LTAC once stable from cardiac standpoint. Continue nightly BiPAP. 26 minutes spent reviewing charts, reviewing labs, reviewing imaging, discussion with RN. ACCEPTED AT [facility] Patient was transferred to the ICU on the night of 10/19/20 due to ventricular tachycardia and brief asystole for which he required 1 minute of CPR. 10/22/2020: Afebrile. Currently breathing on 2 L nasal cannula. Continue amiodarone infusion, per cardiology. ST following to assess swallow safety; possible video swallow. Intubated 09/23-10/14. Likely looking at long recovery time; would be good candidate for LTAC once stable from cardiac standpoint. Continue nightly BiPAP. Critical care time 30 minutes spent reviewing charts, reviewing labs, reviewing imaging, discussion with RN. 10/21/2020 Patient seen and examined in the ICU, his is present she seems to be good support for him, patient is a lot more alert today, he is able to use 1 or 2 word sentences, is only requiring oxygen via nasal cannula, has a swallow study tomorrow morning Discussed with RN, chart reviewed 10/20: Patient seen and examined in the ICU. Currently on 3 L of oxygen per nasal cannula. His Jenni is present. Discussed with RN. Chart reviewed. Patient was resting with NAD. Transferred to ICU last night due to ventricular tachycardia with brief asystole requiring CPR. On 3L O2 per nasal canula. O2 Sat is 97%. Requiring nightly BIPAP with 40% FiO2. IV Potassium was initiated due to potassium level of 2.8. Started on Clinimix. On amiodarone drip, IV fluids, IV zosyn. Plan to place PICC line today. Chest X-ray indicated mild improvement. 10/19/2020 No acute events overnight. Patient saturating 93% on 5 L nasal cannula. Working with physical therapy at the time with at bedside. Definitely improvement since his ICU course. Failed swallow study we'll continue with n.p.o. Potassium of 2.7 and magnesium 1.5 today. Will replace IV electrolytes. Patient's chart, labs, images were reviewed and discussed with RN 10/18/2020 patient seen and examined in the ICU his Jenni is present she has good support for him currently on nasal cannula oxygen at 5 L Amado to bedside drainage rectal tube in place discussed with RN chart reviewed 10/17/2020 Patient seen and examined in the ICU His is present Currently back on BiPAP 25/07 with 40% FiO2 O2 sat is 99% I reviewed the chest x-rays and labs with his Chart reviewed Discussed with RN He remains critically ill Mr Morrissey is a 65-year-old white male w/ PMHx HTN, DM2, HLD, GERD, CAD s/p CABG 2011 presented to ED due to worsening cough and shortness of breath; patient also experiencing vomiting and diarrhea. Patient was recently diagnosed with COVID-19 on September 11 and has been doing well since that until a few days prior to arrival when his symptoms acutely worsened this morning. Has not received Covid vaccine. Close contacts at home have very similar symptoms. 09/21: Patient saturating 98% on 10 L nasal cannula. Increasing O2 requirements may consider pulmonology consult. On remdesivir, steroids 09/22: Patient saturating 91% on 10 L nasal cannula. Shortness of breath with ambulation. Combivent inhaler ordered today. 09/23: Patient is requiring increasing O2 requirements. Saturating 88% on 15 L nonrebreather and also nasal cannula. ICU transfer and intubated. 09/24: In ICU on vent. Afebrile, currently breathing FiO2 100%, PEEP 10. Final dose of remdesivir today. 09/25: Afebrile. On vent with FiO2 80%, PEEP 9. He has completed course of remdesivir. IV steroids for total dose 10 days and IV Zosyn. 09/26: Afebrile. Remains on vent with FiO2 70%, PEEP 8. Completed remdesivir. Continue prophylactic IV Zosyn. 09/27: No acute events overnight. Afebrile. On vent with FiO2 70%, PEEP 8. Cont IV antibiotics and steroids, with taper. Completed remdesivir. 09/28: Afebrile. On vent with FiO2 90%, PEEP 8. Completed remdesivir. Continue IV antibiotics. KUB with good OGT placement 09/29: Afebrile. On vent with increased oxygen requirement, FiO2 100%, PEEP 8. CXR increasing bilateral airspace opacities 09/30: On vent with FiO2 90%, PEEP 8. Afebrile. Steroids have been increased to dexamethasone 20 mg for 5 days, 10 mg for 5 days 10/01: No acute events overnight. Patient saturating 97% on vent settings of 22/500/80/8. Currently sedated and intubated. 10/02: Patient saturating 95% on vent settings of 22/500/75/7. ABG expected at 7.4 /72/28. Currently intubated and sedated. 10/03: No acute events overnight. Patient saturating 94% on vent settings of 22/500/75/7. Improved sugar control. 10/04: Saturating 100% on vent settings of 22/500/65/7. Last ABG show pH of 7.5 //28. Adjustments to vent settings by pulmonology. 10/05: No acute events overnight. Patient saturating 96% on vent settings of 20/500/65/7. Discussed prognosis with family. 10/06: No acute events overnight. Patient saturating 95% on vent settings of 20/500/50/6. No other concerns from nursing at this time. 10/07: No acute events overnight. Patient saturating 96% on vent settings of 20/500/50/6. T-max of 100.3. 10/08: Afebrile overnight. Sedated with propofol Versed and fentanyl PEEP of 6 FiO2 50% ABG 7.4 . Discussed with bedside. 10/09: T-max 100.3 F. Sedated with propofol Versed fentanyl, O2 saturations 96%, ABG 7.4 on FiO2 50% and normal PEEP of 6. D/w bedside. Good UOP 10/10: Afebrile. Sedation wean this morning respirations increased significantly back on sedation. ABG 7.40 / FiO2 45% PEEP 6. Discussed with bedside O2 is significantly improving. 10/11: Afebrile. Agitated with sedation wean added Precedex. FiO2 40% PEEP 5. Will attempt sedation wean again today. D/w bedside. 10/12: Chest radiograph improved . ABG 7.4 / on 40% FiO2 PEEP 5. Respiratory rate 28 with wean this morning and blood pressure elevated. Will try to wean again later today. Discussed with at bedside 10/13: Febrile 101.1 F overnight. Very agitated with attempted wean with increased BP ABG 7.471/38.4/71.2 on FiO2 40% PEEP 5. Respiratory blood and urine cultures for fever. Zosyn for coverage for possible VAP, f/u CXR 10/14: Afebrile. O2 saturations improved with furosemide. Urine output 2.7 L. K3.3 mag 1.7 WBC 7.6, Hb 9.3, platelets 158. Starting vent wean. Cultures pending, still on zosyn 10/13 Discussed with Pulmonology adding low-dose Haldol with vent weans will hold on propofol as QT sees around 470. Will maintain telemetry. As needed hydralazine and Vasotec for elevated blood pressure. Discussed with bedside CC time 34 minutes 10/15/2020: Patient seen and examined in the ICU with family present. Currently on BiPAP 16/16, 50% FiO2, and rate 20. Sedated with dexmedetomidine. On diltiazem drip. Amado to BSD. Rectal bag present. Triple lumen PICC in the right arm and right heel ulcer present. Chest x-ray from today showed stable diffuse bilateral opacities.Discussed with RN. Chart reviewed. 10/16/2020 Patient seen and examined in the ICU His is present Currently on Ventimask 50% FiO2 Chart reviewed Discussed with RN He is still quite ill Vitals Vitals Vital Signs Date Time Temp Pulse Resp B/P (MAP) Pulse Ox O2 Delivery O2 Flow Rate FiO2 10/25/20 08:01 75 159/77 10/25/20 07:59 17 93 Room Air 10/25/20 07:23 2.0 10/25/20 07:00 98.0 98.0 Physical Exam General: Alert, Oriented X3, Cooperative, No acute distress Heart: Regular rate Lungs: Clear, Crackles Abdomen: Normal bowel sounds, Soft Extremities: No clubbing, No cyanosis Skin: No rashes, No significant lesion Labs FINAL DIAGNOSIS Problems Medical Problems: (1) Bilateral pulmonary infiltrates on CXR Status: Acute (2) Fever Status: Acute (3) Hypoxia Status: Acute (4) Lab test positive for detection of COVID-19 virus Status: Acute Brief Hospital Course Mr. Morrissey is a 65 old [sex] who presented with [POST COVID 19 SYNDROME WITH PNEUMONIA, ENCEPHALOPATHY, WEAKNESS ] CONDITION AT DISCHARGE: Improved Discharge Medications Current Medications Sodium Chloride 1,000 ml @ 1,000 mls/hr 1X ONCE IV Last administered on 09/20/20at 14:45; Start 09/20/20 at 14:30; Stop 09/20/20 at 15:29; Status DC Dexamethasone Sodium Phosphate (Decadron) 10 mg 1X ONCE IV Last administered on 09/20/20at 14:50; Start 09/20/20 at 14:30; Stop 09/20/20 at 14:31; Status DC Piperacillin Sod/ Tazobactam Sod 3.375 gm/Sodium Chloride 50 ml @ 100 mls/hr 1X ONCE IV Last administered on 09/20/20at 15:22; Start 09/20/20 at 15:30; Stop 09/20/20 at 15:59; Status DC Acetaminophen (Tylenol) 1,000 mg 1X ONCE PO Last administered on 09/20/20at 15:22; Start 09/20/20 at 15:30; Stop 09/20/20 at 15:31; Status DC Ondansetron HCl (Zofran) 4 mg PRN Q8HRS PRN IVP NAUSEA/VOMITING; Start 09/20/20 at 15:45; Stop 09/20/20 at 17:11; Status DC Morphine Sulfate (Morphine Sulfate) 2 mg PRN Q2HR PRN IVP PAIN; Start 09/20/20 at 15:45; Stop 09/21/20 at 15:44; Status DC Acetaminophen (Tylenol) 650 mg PRN Q4HRS PRN PO FEVER > 100.3'F; Start 09/20/20 at 15:45; Stop 09/21/20 at 15:44; Status Cancel Insulin Human Lispro (HumaLOG) 0-5 UNITS TIDWMEALS SQ Last administered on 09/21/20at 12:34; Start 09/20/20 at 17:00; Stop 09/21/20 at 13:33; Status DC Dextrose (Dextrose 50%-Water Syringe) 12.5 gm PRN Q15MIN PRN IV SEE COMMENTS; Start 09/20/20 at 15:45 Ondansetron HCl (Zofran) 4 mg PRN Q6HRS PRN IVP NAUSEA/VOMITING; Start 09/20/20 at 17:00; Stop 10/13/20 at 07:54; Status DC Calcium Carbonate/ Glycine (Tums) 500 mg PRN Q3HRS PRN PO UPSET STOMACH Last administered on 09/23/20at 11:47; Start 09/20/20 at 17:00 Zolpidem Tartrate (Ambien) 5 mg PRN QHS PRN PO INSOMNIA, MAY REPEAT IN 1HR; Start 09/20/20 at 17:00; Stop 10/13/20 at 07:54; Status DC Info (Non-Icu Electrolyte Protocol) 1 ea PRN DAILY PRN MC SEE COMMENTS; Start 09/20/20 at 17:00; Status Cancel Oxycodone/ Acetaminophen (Percocet 5/325) 1 tab PRN Q4HRS PRN PO MILD PAIN, 1ST CHOICE; Start 09/20/20 at 17:00 Oxycodone/ Acetaminophen (Percocet 5/325) 2 tab PRN Q4HRS PRN PO MODERATE PAIN, SEVERE PAIN Last administered on 10/25/20at 07:59; Start 09/20/20 at 17:00 Acetaminophen (Tylenol) 650 mg PRN Q6HRS PRN PO Headaches, Temp > 101.5F Last administered on 10/14/20at 09:03; Start 09/20/20 at 17:00 Senna/Docusate Sodium (Senna Plus) 1 tab BID PO Last administered on 10/25/20at 08:02; Start 09/20/20 at 21:00 Enoxaparin Sodium (Lovenox 40mg Syringe) 40 mg Q12HR SQ Last administered on 10/15/20at 07:46; Start 09/20/20 at 17:00; Stop 10/15/20 at 13:58; Status DC Potassium Chloride (Klor-Con) 40 meq 1X ONCE PO Last administered on 09/20/20at 17:34; Start 09/20/20 at 17:00; Stop 09/20/20 at 17:06; Status DC Piperacillin Sod/ Tazobactam Sod (Zosyn Per Pharmacy) 1 each PRN DAILY PRN MC SEE COMMENTS; Start 09/20/20 at 17:00; Stop 10/01/20 at 08:49; Status DC Azithromycin (Zithromax) 500 mg 1X ONCE PO Last administered on 09/20/20at 17:34; Start 09/20/20 at 17:00; Stop 09/20/20 at 17:07; Status DC Dexamethasone Sodium Phosphate (Decadron) 6 mg DAILY IVP Last administered on 09/28/20at 08:02; Start 09/21/20 at 09:00; Stop 09/29/20 at 07:20; Status DC Guaifenesin/ Codeine Phosphate (Robitussin Ac) 5 ml PRN Q6HRS PRN PO COUGH Last administered on 09/23/20at 11:49; Start 09/20/20 at 17:00 Multivitamins (Thera M Plus) 1 tab DAILY PO Last administered on 09/28/20at 08:02; Start 09/21/20 at 09:00; Stop 09/29/20 at 07:56; Status DC Aspirin (Aspirin Chewable) 81 mg DAILYWBKFT PO Last administered on 10/25/20at 08:02; Start 09/21/20 at 08:00 Metoprolol Succinate (Toprol Xl) 12.5 mg HS PO Last administered on 09/22/20at 20:28; Start 09/20/20 at 21:00; Stop 09/25/20 at 14:13; Status DC Pantoprazole Sodium (Protonix) 40 mg DAILYAC PO Last administered on 09/23/20 09:28; Start 09/21/20 at 07:30; Stop 09/24/20 at 09:14; Status DC Simvastatin (Zocor) 20 mg QHS PO Last administered on 10/24/20at 22:14; Start 09/20/20 at 21:00 Piperacillin Sod/ Tazobactam Sod 3.375 gm/Sodium Chloride 50 ml @ 100 mls/hr Q6HRS IV Last administered on 10/01/20at 06:00; Start 09/20/20 at 18:00; Stop 10/01/20 at 07:01; Status DC Remdesivir 200 mg/ Sodium Chloride 210 ml @ 210 mls/hr 1X ONCE IV Last administered on 09/20/20at 21:12; Start 09/20/20 at 20:00; Stop 09/20/20 at 20:59; Status DC Remdesivir 100 mg/ Sodium Chloride 230 ml @ 460 mls/hr Q24H IV Last administered on 09/24/20at 19:28; Start 09/21/20 at 20:00; Stop 09/24/20 at 20:29 ; Status DC Insulin Glargine (Lantus Syringe) 20 unit BID SQ Last administered on 10/01/20at 08:34; Start 09/21/20 at 21:00; Stop 10/01/20 at 12:36; Status DC Insulin Human Lispro (HumaLOG) 0-9 UNITS TIDWMEALS SQ Last administered on 09/23/20at 17:28; Start 09/21/20 at 17:00; Stop 09/23/20 at 23:06; Status DC Lactobacillus Rhamnosus (Culturelle) 1 cap BID PO Last administered on 09/23/20at 09:28; Start 09/21/20 at 21:00; Stop 09/24/20 at 09:21; Status DC Ascorbic Acid (Vitamin C) 1,000 mg TID PO Last administered on 10/25/20 08:01; Start 09/21/20 at 21:00 Zinc Sulfate (Orazinc) 220 mg DAILY PO Last administered on 10/25/20 08:02; Start 09/22/20 at 09:00 Insulin Human Lispro (HumaLOG) 5 units TIDWMEALS SQ Last administered on 09/23/20at 17:29; Start 09/22/20 at 12:00; Stop 09/24/20 at 09:18; Status DC Albuterol/ Ipratropium (Combivent Respimat 20-100 Mcg) 1 puff PRN QID PRN INH SHORTNESS OF BREATH Last administered on 09/23/20at 09:28; Start 09/22/20 at 12:45 Sterile Water (WATER for RESP) 1,000 ml CONT PRN INH VIA VAPOTHERM DEVICE Last administered on 09/23/20at 14:55; Start 09/23/20 at 12:45; Stop 09/24/20 at 09:20; Status DC Dexmedetomidine HCl 400 mcg/ Sodium Chloride 100 ml @ 0 mls/hr CONT PRN IV PER PROTOCOL Last administered on 10/18/20at 06:02; Start 09/23/20 at 18:00 Sodium Chloride 500 ml @ 500 mls/hr 1X PRN PRN IV SEE COMMENTS; Start 09/23/20 at 18:00 Atropine Sulfate (ATROPINE 0.5mg SYRINGE) 0.5 mg PRN Q5MIN PRN IV SEE COMMENTS; Start 09/23/20 at 18:00 Lorazepam (Ativan Inj) 0.25 mg 1X ONCE IVP Last administered on 09/23/20at 20:23; Start 09/23/20 at 20:15; Stop 09/23/20 at 20:16; Status DC Fentanyl Citrate 30 ml @ 0 mls/hr CONT PRN IV SEE PROTOCOL Last administered on 09/29/20at 14:27; Start 09/23/20 at 21:15; Stop 09/29/20 at 22:00; Status DC Propofol 100 ml @ 0 mls/hr CONT PRN IV PER PROTOCOL Last administered on 10/14/20at 03:25; Start 09/23/20 at 21:15; Stop 10/17/20 at 10:30; Status DC Midazolam HCl 100 ml @ 0 mls/hr CONT PRN IV SEE PROTOCOL Last administered on 10/08/20at 20:48; Start 09/23/20 at 21:15; Stop 10/17/20 at 10:30; Status DC Succinylcholine Chloride (Anectine) 200 mg STK-MED ONCE .ROUTE ; Start 09/23/20 at 21:40; Stop 09/23/20 at 21:40; Status DC Insulin Human Lispro (HumaLOG) 0-9 UNITS Q6HRS SQ Last administered on at 17:34; Start 09/24/20 at 00:00 Succinylcholine Chloride (Anectine) 200 mg 1X ONCE IV Last administered on 09/23/20at 21:44; Start 09/24/20 at 03:00; Stop 09/24/20 at 03:01; Status DC Pantoprazole Sodium (PROTONIX VIAL for IV PUSH) 40 mg DAILY IVP Last administered on 10/25/20at 08:02; Start 09/25/20 at 09:00 Benzocaine (Americaine) 57 spray STK-MED ONCE TP ; Start 09/24/20 at 15:00; Stop 09/25/20 at 10:40; Status DC Potassium Chloride/Water 100 ml @ 100 mls/hr Q1H IV ; Start 09/25/20 at 10:45; Stop 09/25/20 at 12:44; Status UNV Potassium Chloride/Water 100 ml @ 100 mls/hr Q1H IV Last administered on 09/25/20at 14:44; Start 09/25/20 at 11:00; Stop 09/25/20 at 15:01; Status DC Sodium Chloride 1,000 ml @ 50 mls/hr Q20H IV Last administered on 10/09/20at 05:17; Start 09/28/20 at 15:00; Stop 10/10/20 at 09:01; Status DC Dexamethasone Sodium Phosphate (Decadron) 20 mg DAILY IVP Last administered on 09/30/20at 07:48; Start 09/29/20 at 09:00; Stop 10/01/20 at 07:01; Status DC Multivitamins/ Minerals Therapeutic (Centrum Multivit-Mineral Liq) 5 ml DAILY PEG Last administered on 10/14/20at 08:58; Start 09/29/20 at 09:00 Fentanyl Citrate 55 ml @ 1.5 mls/hr CONT PRN IV SEE I/O Last administered on 10/08/20at 10:28; Start 09/29/20 at 21:15; Stop 10/09/20 at 16:29; Status DC Furosemide (Lasix) 20 mg 1X ONCE IVP Last administered on 09/30/20at 11:52; Start 09/30/20 at 11:00; Stop 09/30/20 at 11:01; Status DC Dexamethasone Sodium Phosphate (Decadron) 10 mg DAILY IVP Last administered on 10/03/20at 07:32; Start 10/01/20 at 09:00; Stop 10/03/20 at 11:01; Status DC Insulin Glargine (Lantus Syringe) 25 unit BID SQ Last administered on 10/25/20at 08:16; Start 10/01/20 at 21:00 Nystatin (Nystop) 1 richard BID TP Last administered on 10/25/20at 08:00; Start 10/07/20 at 09:00 Magnesium Sulfate/ Dextrose 100 ml @ 100 mls/hr 1X ONCE IV Last administered on 10/08/20at 11:04; Start 10/08/20 at 11:00; Stop 10/08/20 at 11:59; Status DC Info (Icu Electrolyte Protocol) 1 ea CONT PRN PRN MC SEE COMMENTS; Start 10/08/20 at 10:30 Magnesium Sulfate 50 ml @ 25 mls/hr 1X ONCE IV Last administered on 10/09/20at 08:36; Start 10/09/20 at 07:45; Stop 10/09/20 at 09:44; Status DC Fentanyl Citrate 30 ml @ 1.5 mls/hr CONT PRN PRN IV SEE PROTOCOL Last administered on 10/14/20at 09:20; Start 10/09/20 at 16:30; Stop 10/17/20 at 10:30; Status DC Hydralazine HCl (Apresoline Inj) 10 mg PRN Q4HRS PRN IVP ELEVATED BP, SEE COMMENTS Last administered on 10/20/20at 15:37; Start 10/12/20 at 11:15 Vecuronium Eldred (Norcuron Bolus) 6 mg PRN Q6HRS PRN IV VENTILATOR COMPLIANCE Last administered on 10/12/20at 23:39; Start 10/12/20 at 23:45; Stop 10/17/20 at 10:30; Status DC Haloperidol Lactate (Haldol Inj) 5 mg Q8HRS IVP ; Start 10/13/20 at 08:30; Stop 10/13/20 at 09:42; Status DC Potassium Bicarbonate (Potassium Effervescent Tablet) 40 meq 1X ONCE PO Last administered on 10/13/20at 08:41; Start 10/13/20 at 08:00; Stop 10/13/20 at 08:09; Status DC Enalaprilat (Vasotec Inj) 1.25 mg PRN Q6HRS PRN IVP HYPERTENSION- 2nd choice Last administered on 10/16/20at 12:42; Start 10/13/20 at 08:30 Haloperidol Lactate (Haldol Inj) 2.5 mg PRN Q8HRS PRN IVP Agitation during vent wean Last administered on 10/14/20at 17:05; Start 10/13/20 at 09:45; Stop 10/17/20 at 10:30; Status DC Piperacillin Sod/ Tazobactam Sod 3.375 gm/Sodium Chloride 50 ml @ 100 mls/hr Q6HRS IV Last administered on 10/25/20at 06:00; Start 10/13/20 at 11:00 Piperacillin Sod/ Tazobactam Sod (Zosyn Per Pharmacy) 1 each PRN DAILY PRN MC SEE COMMENTS; Start 10/13/20 at 09:45 Furosemide (Lasix) 40 mg 1X ONCE IVP Last administered on 10/13/20at 15:55; Start 10/13/20 at 14:45; Stop 10/13/20 at 14:46; Status DC Potassium Chloride/Water 100 ml @ 100 mls/hr 1X ONCE IV Last administered on 10/13/20at 15:55; Start 10/13/20 at 15:00; Stop 10/13/20 at 15:59; Status DC Magnesium Sulfate 50 ml @ 25 mls/hr 1X ONCE IV Last administered on 10/14/20at 08:59; Start 10/14/20 at 07:30; Stop 10/14/20 at 09:29; Status DC Potassium Bicarbonate (Potassium Effervescent Tablet) 40 meq 1X ONCE PO Last administered on 10/14/20at 08:57; Start 10/14/20 at 07:30; Stop 10/14/20 at 07:31; Status DC Metoprolol Tartrate (Lopressor Vial) 5 mg PRN Q5MIN PRN IVP TACHYCARDIA Last a dministered on 10/15/20at 09:17; Start 10/15/20 at 08:45 Fentanyl Citrate (Fentanyl 2ml Vial) 50 mcg PRN Q2HR PRN IVP PAIN Last ad ministered on 10/23/20at 06:20; Start 10/15/20 at 08:45 Diltiazem HCl 125 mg/Sodium Chloride 125 ml @ 5 mls/hr CONT PRN IV SEE I/O RECORD Last administered on 10/15/20at 16:04; Start 10/15/20 at 09:30; Stop 10/16/20 at 12:56; Status DC Furosemide (Lasix) 40 mg DAILY IVP Last administered on 10/17/20at 07:41; Start 10/15/20 at 11:00; Stop 10/17/20 at 09:01; Status DC Potassium Chloride/Water 100 ml @ 100 mls/hr Q1H IV Last administered on 10/15/20at 11:24; Start 10/15/20 at 11:00; Stop 10/15/20 at 12:59; Status DC Digoxin (Lanoxin) 500 mcg 1X ONCE IV Last administered on 10/15/20at 11:11; Start 10/15/20 at 11:15; Stop 10/15/20 at 11:16; Status DC Heparin Sodium/ Dextrose 250 ml @ 0 mls/hr CONT PRN IV PER PROTOCOL Last administered on 10/16/20at 08:17; Start 10/15/20 at 14:00; Stop 10/16/20 at 12:56; Status DC Heparin Sodium (Porcine) (Heparin Sodium) 2,850 unit PRN Q6HRS PRN IV FOR UFH LEVEL LESS THAN 0.2 Last administered on 10/16/20at 11:41; Start 10/15/20 at 14:00; Stop 10/16/20 at 12:56; Status DC Perflutren Protein Type A Microsphe (Optison) 0.66 mg 1X ONCE IV Last administered on 10/16/20at 07:30; Start 10/16/20 at 07:30; Stop 10/16/20 at 07:31; Status DC Perflutren Protein Type A Microsphe (Optison) 0.66 mg STK-MED ONCE IV ; Start 10/16/20 at 07:43; Stop 10/16/20 at 07:43; Status DC Magnesium Sulfate 50 ml @ 25 mls/hr 1X ONCE IV Last administered on 10/16/20at 09:52; Start 10/16/20 at 09:45; Stop 10/16/20 at 11:44; Status DC Enoxaparin Sodium (Lovenox 40mg Syringe) 40 mg Q24H SQ Last administered on 10/24/20at 12:14; Start 10/16/20 at 13:00 Magnesium Sulfate 50 ml @ 25 mls/hr 1X ONCE IV Last administered on 10/17/20at 07:41; Start 10/17/20 at 07:00; Stop 10/17/20 at 08:59; Status DC Metoprolol Tartrate (Lopressor Vial) 5 mg Q6HRS IVP Last administered on 10/17/20at 17:20; Start 10/17/20 at 13:00; Stop 10/19/20 at 12:36; Status DC Nitroglycerin (Nitro-Bid Oint) 1 inch Q6HRS TP Last administered on 10/23/20at 06:15; Start 10/17/20 at 13:00; Stop 10/23/20 at 11:22; Status DC Furosemide (Lasix) 40 mg DAILY IVP Last administered on 10/19/20at 08:37; Start 10/18/20 at 09:00; Stop 10/23/20 at 11:22; Status DC Ondansetron HCl (Zofran) 4 mg STK-MED ONCE .ROUTE ; Start 10/17/20 at 14:08; Stop 10/17/20 at 14:09; Status DC Ondansetron HCl (Zofran) 4 mg PRN Q6HRS PRN IVP NAUSEA/VOMITING Last administered on 10/22/20at 21:49; Start 10/17/20 at 14:45 Adenosine (Adenocard) 6 mg 1X ONCE IV Last administered on 10/17/20at 22:00; Start 10/17/20 at 22:00; Stop 10/17/20 at 22:01; Status DC Adenosine (Adenocard) 12 mg 1X ONCE IV Last administered on 10/17/20at 22:15; Start 10/17/20 at 22:15; Stop 10/17/20 at 22:16; Status DC Diltiazem HCl 125 mg/Sodium Chloride 125 ml @ 5 mls/hr CONT PRN IV SEE I/O RECORD Last administered on 10/19/20at 18:34; Start 10/17/20 at 21:45 Diltiazem HCl (Cardizem Iv Push) 10 mg 1X ONCE IVP Last administered on 10/17/20at 22:05; Start 10/17/20 at 22:00; Stop 10/17/20 at 22:01; Status DC Digoxin (Lanoxin) 250 mcg 1X ONCE IV Last administered on 10/17/20at 23:53; Start 10/18/20 at 00:00; Stop 10/18/20 at 00:01; Status DC Digoxin (Lanoxin) 250 mcg 1X ONCE IV Last administered on 10/18/20at 00:46; Start 10/18/20 at 00:30; Stop 10/18/20 at 00:31; Status DC Sodium Chloride 1,000 ml @ 80 mls/hr [id number] IV Last administered on 10/19/20at 17:46; Start 10/18/20 at 06:00; Stop 10/20/20 at 10:30; Status DC Magnesium Sulfate 50 ml @ 25 mls/hr 1X ONCE IV Last administered on 10/18/20at 11:02; Start 10/18/20 at 08:15; Stop 10/18/20 at 10:14; Status DC Potassium Chloride/Water 100 ml @ 50 mls/hr 1X ONCE IV ; Start 10/18/20 at 09:00; Stop 10/18/20 at 08:37; Status DC Potassium Chloride/Water 100 ml @ 50 mls/hr Q2H IV Last administered on 10/18/20at 11:01; Start 10/18/20 at 09:00; Stop 10/18/20 at 12:59; Status DC Amiodarone HCl 150 mg/Dextrose 103 ml @ 600 mls/hr 1X ONCE IV Last administered on 10/18/20at 14:55; Start 10/18/20 at 13:30; Stop 10/18/20 at 13:45; Status DC Amiodarone HCl 450 mg/Dextrose 259 ml @ 0 mls/hr CONT PRN IV SEE I/O RECORD Last administered on 10/19/20at 09:47; Start 10/18/20 at 13:30; Stop 10/19/20 at 13:29; Status DC Acetaminophen (Tylenol Supp) 650 mg PRN Q6HRS PRN TX MILD PAIN / TEMP > 100.3'F Last administered on 10/18/20at 23:49; Start 10/18/20 at 23:45 Magnesium Sulfate 50 ml @ 25 mls/hr 1X ONCE IV Last administered on 10/19/20at 13:37; Start 10/19/20 at 13:30; Stop 10/19/20 at 15:29; Status DC Potassium Chloride/Water 100 ml @ 100 mls/hr Q1H IV Last administered on 10/19/20at 17:36; Start 10/19/20 at 13:30; Stop 10/19/20 at 15:29; Status DC Metoprolol Tartrate (Lopressor Vial) 5 mg PRN Q6HRS PRN IVP SEE COMMENTS; Start 10/19/20 at 12:45 Potassium Chloride/Water 20 ml @ 20 mls/hr Q1H IV ; Start 10/19/20 at 15:30; Stop 10/19/20 at 17:29; Status Cancel Sodium Chloride (Normal Saline Flush) 10 ml QSHIFT PRN IV AFTER MEDS AND BLOOD DRAWS; Start 10/19/20 at 21:45 Sodium Chloride (Normal Saline Flush) 20 ml QSHIFT PRN IV AFTER MEDS AND BLOOD DRAWS; Start 10/19/20 at 21:45 Potassium Chloride/Water 100 ml @ 100 mls/hr Q1H IV Last administered on 10/20/20at 04:30; Start 10/20/20 at 00:30; Stop 10/20/20 at 04:29; Status DC Magnesium Sulfate 50 ml @ 25 mls/hr 1X ONCE IV Last administered on 10/20/20at 00:31; Start 10/20/20 at 00:30; Stop 10/20/20 at 02:29; Status DC Amiodarone HCl 450 mg/Dextrose 259 ml @ 0 mls/hr 1X ONCE IV Last administered on 10/20/20at 01:00; Start 10/20/20 at 01:00; Stop 10/20/20 at 01:01; Status DC Potassium Chloride/Water 100 ml @ 100 mls/hr Q1H IV Last administered on 10/20/20at 16:35; Start 10/20/20 at 09:00; Stop 10/20/20 at 16:59; Status DC Amino Acids/ Electrolytes/ Dextrose 1,000 ml @ 80 mls/hr [id number] IV Last administered on 10/25/20at 00:19; Start 10/20/20 at 08:30 Magnesium Sulfate 50 ml @ 25 mls/hr 1X ONCE IV Last administered on 10/20/20at 20:44; Start 10/20/20 at 21:00; Stop 10/20/20 at 22:59; Status DC Amiodarone HCl 150 mg/Dextrose 103 ml @ 600 mls/hr 1X ONCE IV Last administered on 10/21/20at 03:04; Start 10/21/20 at 03:30; Stop 10/21/20 at 03:40; Status DC Amiodarone HCl 450 mg/Dextrose 259 ml @ 0 mls/hr CONT PRN IV SEE I/O RECORD Last administered on 10/21/20at 11:06; Start 10/21/20 at 03:30; Stop 10/22/20 at 03:29; Status DC Potassium Chloride/Water 100 ml @ 100 mls/hr Q1H IV Last administered on 10/21/20at 04:01; Start 10/21/20 at 03:30; Stop 10/21/20 at 05:29; Status DC Potassium Chloride/Water 100 ml @ 100 mls/hr Q1H IV Last administered on 10/21/20at 14:44; Start 10/21/20 at 11:00; Stop 10/21/20 at 14:59; Status DC Potassium Chloride/Water 100 ml @ 100 mls/hr Q1H IV Last administered on 10/21/20at 18:14; Start 10/21/20 at 15:00; Stop 10/21/20 at 16:59; Status DC Amiodarone HCl 450 mg/Dextrose 259 ml @ 0 mls/hr CONT PRN IV SEE I/O RECORD Last administered on 10/22/20at 21:11; Start 10/22/20 at 02:00; Stop 10/23/20 at 01:59; Status DC Potassium Chloride/Water 100 ml @ 100 mls/hr Q1H IV Last administered on 10/22/20at 13:02; Start 10/22/20 at 12:00; Stop 10/22/20 at 13:59; Status DC Barium Sulfate (Varibar Thin Liquid Apple) 148 gm 1X ONCE PO Last administered on 10/23/20at 10:24; Start 10/23/20 at 10:00; Stop 10/23/20 at 10:01; Status DC Amiodarone HCl (Cordarone) 200 mg DAILY PO Last administered on 10/25/20at 08:00; Start 10/23/20 at 12:00 Metoprolol Tartrate (Lopressor) 12.5 mg BID PO Last administered on 10/25/20at 08:01; Start 10/23/20 at 12:00 Amlodipine Besylate (Norvasc) 5 mg DAILY PO Last administered on 10/25/20at 08:01; Start 10/23/20 at 12:00 Furosemide (Lasix) 20 mg DAILY PO Last administered on 10/25/20at 08:02; Start 10/24/20 at 09:00 Zolpidem Tartrate (Ambien) 5 mg PRN QHS PRN PO INSOMNIA Last administered on 10/24/20at 23:01; Start 10/23/20 at 21:30 Lactobacillus Rhamnosus (Culturelle) 1 cap BID PO Last administered on 10/25/20at 08:00; Start 10/24/20 at 09:00 Active Scripts Active Reported Icosapent Ethyl 1 Gm Capsule 2 Cap PO BID Metformin Hcl 1,000 Mg Tablet 1 Tab PO BID Rybelsus (Semaglutide) 7 Mg Tablet 1 Tab PO DAILY Farxiga (Dapagliflozin Propanediol) 10 Mg Tablet 1 Tab PO DAILY Trelegy Ellipta 100-62.5-25 (Fluticasone/Umeclidin/Vilanter) 1 Each Blst.w.dev 1 Puff INH DAILY Benzonatate 200 Mg Capsule 1 Cap PO TID PRN Montelukast Sodium 10 Mg Tablet 1 Tab PO DAILY Loratadine 10 Mg Tablet 1 Tab PO DAILY Fluticasone Propionate Nasal [place] (Fluticasone Propionate) 16 Gm [place]lock.susp 1 Sprays NS BID Simvastatin 20 Mg Tablet 1 Tab PO QHS Vital Signs Vital Signs Date Time Temp Pulse Resp B/P (MAP) Pulse Ox O2 Delivery O2 Flow Rate FiO2 10/25/20 08:29 18 93 Room Air 10/25/20 08:01 75 159/77 10/25/20 07:23 2.0 10/25/20 07:00 98.0 98.0 Labs Laboratory Tests Test 10/23/20 11:49 10/23/20 17:00 10/23/20 21:35 10/24/20 00:09 Glucose (Fingerstick) 234 mg/dL (70-99) 143 mg/dL (70-99) 166 mg/dL (70-99) 180 mg/dL (70-99) Test 10/24/20 05:48 10/24/20 09:20 10/24/20 12:03 10/24/20 16:53 Glucose (Fingerstick) 141 mg/dL (70-99) 193 mg/dL (70-99) 190 mg/dL (70-99) Potassium Level 3.8 mmol/L (3.5-5.1) Magnesium Level 1.9 mg/dL (1.8-2.4) Test 10/24/20 22:59 10/25/20 05:00 10/25/20 06:46 Glucose (Fingerstick) 152 mg/dL (70-99) 156 mg/dL (70-99) Potassium Level 3.9 mmol/L (3.5-5.1) Magnesium Level 2.1 mg/dL (1.8-2.4) Laboratory Tests Test 10/24/20 12:03 10/24/20 16:53 10/24/20 22:59 10/25/20 05:00 Glucose (Fingerstick) 193 mg/dL (70-99) 190 mg/dL (70-99) 152 mg/dL (70-99) Potassium Level 3.9 mmol/L (3.5-5.1) Magnesium Level 2.1 mg/dL (1.8-2.4) Test 10/25/20 06:46 Glucose (Fingerstick) 156 mg/dL (70-99) Allergies Allergies Coded Allergies Type Severity Reaction Last Updated Verified No Known Drug Allergies 11/20/15 No Disposition/Orders: Other (transfer to [facility] ) Justicifation of Admission Dx: Justifications for Admission: Justification of Admission Dx: Yes WILD SHAW MD Oct 25, 2020 09:44
[2020-10-25] MEDS ORDERED: IPRA4AER INH (10:02)
[2020-10-25] MEDS ORDERED: INSU100V8 SQ (10:02)
[2020-10-25] MEDS ORDERED: MULT9LIQ10 PEG (10:02)
[2020-10-25] MEDS ORDERED: INSU100V35 SQ (10:02)
[2020-10-25] MEDS ORDERED: CALC200T23 PO (10:02)
[2020-10-25] MEDS ORDERED: ZOLP5TAB PO (10:02)
[2020-10-25] MEDS ORDERED: AMLO-186 PO (10:02)
[2020-10-25] MEDS ORDERED: ENOX40DI3 SQ (10:02)
[2020-10-25] MEDS ORDERED: Pantoprazole Iv Push IVP (10:02)
[2020-10-25] MEDS ORDERED: ACET325T21 PO (10:02)
[2020-10-25] MEDS ORDERED: AMIO200T6 PO (10:02)
[2020-10-25] MEDS ORDERED: ZINC220C5 PO (10:02)
[2020-10-25] MEDS ORDERED: ASPI-630 PO (10:02)
[2020-10-25] MEDS ORDERED: FURO40TA4 PO (10:02)
[2020-10-25] MEDS ORDERED: LACT1CAP19 PO (10:02)
[2020-10-25] MEDS ORDERED: NYST15PO2 TP (10:02)
[2020-10-25] MEDS ORDERED: ACET650S11 PR (10:02)
[2020-10-25] MEDS ORDERED: SENN-209 PO (10:02)
[2020-10-25] MEDS ORDERED: ASCO100019 PO (10:02)
[2020-10-25] MEDS ORDERED: METO25TA4 PO (10:02)
--- NOTE | 2020-10-25 10:05 | SNU/HH DC ---
DISCHARGE ORDERS DISCHARGE INFORMATION: DISCHARGE DATE: Oct 25, 2020 FINAL DIAGNOSIS Problems Medical Problems: (1) Bilateral pulmonary infiltrates on CXR Status: Acute (2) Fever Status: Acute (3) Hypoxia Status: Acute (4) Lab test positive for detection of COVID-19 virus Status: Acute CONDITION ON DISCHARGE: Stable CODE STATUS: Code Status: Full CORRECTION: SNF STAY <30 DAYS: No HOSPICE: HOSPICE: No HOSPICE EVAL & TREAT: No LTAC: ADMIT TO LTAC: No POST DISCHARGE ORDERS: ACTIVITY ORDERS: Activity as tolerated WEIGHT BEARING STATUS: As tolerated DIET AFTER DISCHARGE: ADA CHECKS AFTER DISCHARGE: CHECKS AFTER DISCHARGE: Check blood press - daily FOLLOW-UP: PHYSICIAN FOLLOW-UP: TRANSFER TO [facility] TREATMENT/EQUIPMENT ORDERS: ADAPTIVE EQUIPMENT NEEDED: Front wheeled walker INFUSION EQUIPMENT NEEDED: IV Line Physical Therapy For: Evalulation/Treatment Occupational Therapy For: Evaluation/Treatment Speech Language Pathology For: Evaluation/Treatment DISCHARGE MEDICATIONS: Home Meds Active Scripts Multivits W-Min/Ferrous Gluc (CENTRUM MULTIVIT-MINERAL LIQ) 9 Mg/15 Ml Liquid, 5 ML PEG DAILY for SUPPLEMENT for 30 Days, #100 LIQUID Prov:WILD SHAW MD 10/25/20 Ascorbic Acid (VITAMIN C) 1,000 Mg Tablet, 1000 MG PO TID for SUPPLEMENT for 30 Days, #90 TAB Prov:WILD SHAW MD 10/25/20 Nystatin (NYAMYC) 15 Gm Powder, 1 MAUREEN TP BID for RASH for 30 Days, #60 MISC Prov:WILD SHAW MD 10/25/20 Insulin Lispro (Admelog) 100 Unit/1 Ml Vial, 0 UNITS SQ Q6HRS for PER SS PROTOCOL for 14 Days, #1 EACH Prov:WILD SHAW MD 10/25/20 Insulin Glargine,Hum.rec.anlog (LANTUS) 100 Unit/1 Ml Vial, 25 UNIT SQ BID for DIABETES for 14 Days, #1 EACH Prov:WILD SHAW MD 10/25/20 Lactobacillus Rhamnosus Gg (CULTURELLE) 1 Each Cap.sprink, 1 CAP PO BID for SUPPLEMENT for 30 Days, #60 CAP Prov:WILD SHAW MD 10/25/20 [Pantoprazole Iv Push] 40 MG VIAL No Conflict Check, 40 MG IVP DAILY for GERD for 30 Days, #30 Prov:WILD SHAW MD 10/25/20 Sennosides/Docusate Sodium (Stool Softener-Stimulant Lax) 1 Each Tablet, 1 TAB PO BID for PRN CONSTIPATION for 10 Days, #20 TAB Prov:WILD SHAW MD 10/25/20 Calcium Carbonate (CALCIUM CARBONATE) 200 Mg Tab.chew, 500 MG PO PRN Q3HRS PRN for UPSET STOMACH for 30 Days, #100 TAB.CHEW Prov:WILD SHAW MD 10/25/20 Furosemide (FUROSEMIDE) 40 Mg Tablet, 20 MG PO DAILY for CHF for 10 Days, #5 TAB Prov:WILD SHAW MD 10/25/20 Zinc Sulfate (Zinc Sulfate) 50 Mg Capsule, 220 MG PO DAILY for SUPPLEMENT for 30 Days, #132 CAP Prov:WILD SHAW MD 10/25/20 Zolpidem Tartrate (AMBIEN) 5 Mg Tablet, 5 MG PO PRN QHS PRN for INSOMNIA for 14 Days, #10 TAB Prov:WILD SHAW MD 10/25/20 Acetaminophen (ACETAMINOPHEN) 325 Mg Tablet, 650 MG PO PRN Q6HRS PRN for Headaches, Temp > 101.5F for 14 Days, #100 TAB Prov:WILD SHAW MD 10/25/20 Acetaminophen (ACETAMINOPHEN SUPP) 650 Mg Supp.rect, 650 MG WI PRN Q6HRS PRN for MILD PAIN / TEMP > 100.3'F for 30 Days, #60 SUPP.RECT Prov:WILD SHAW MD 10/25/20 Aspirin (ASPIRIN) 81 Mg Tab.chew, 81 MG PO DAILYWBKFT for HEART HEALTH for 30 Days, #30 TAB.CHEW Prov:WILD SHAW MD 10/25/20 Amlodipine Besylate (AMLODIPINE BESYLATE) 5 Mg Tablet, 5 MG PO DAILY for BLOOD PRESSURE for 30 Days, #30 TAB Prov:WILD SHAW MD 10/25/20 Metoprolol Tartrate (METOPROLOL TARTRATE) 25 Mg Tablet, 12.5 MG PO BID for HEART, BP for 30 Days, #30 TAB Prov:WILD SHAW MD 10/25/20 Amiodarone Hcl (AMIODARONE HCL) 200 Mg Tablet, 200 MG PO DAILY for HEART RHYTHM for 30 Days, #30 TAB Prov:WILD SHAW MD 10/25/20 Enoxaparin Sodium (ENOXAPARIN SODIUM) 40 Mg/0.4 Ml Disp.syrin, 40 MG SQ Q24H for DVT PROPHYLAXIS for 30 Days, #30 DIS.SYR Prov:WILD SHAW MD 10/25/20 Ipratropium/Albuterol Sulfate (COMBIVENT RESPIMAT INHAL) 4 Gm Aer.w.adap, 1 PUFF INH PRN QID PRN for SHORTNESS OF BREATH for 30 Days, #1 INH Prov:WILD SHAW MD 10/25/20 Reported Medications Fluticasone/Umeclidin/Vilanter (Trelegy Ellipta 100-62.5-25) 1 Each Blst.w.dev, 1 PUFF INH DAILY for breathing 09/20/20 Benzonatate (BENZONATATE) 200 Mg Capsule, 1 CAP PO TID PRN for COUGH 09/20/20 Montelukast Sodium (Montelukast Sodium) 10 Mg Tablet, 1 TAB PO DAILY for asthma 09/20/20 Loratadine (LORATADINE) 10 Mg Tablet, 1 TAB PO DAILY for allergies 09/20/20 Fluticasone Propionate (FLUTICASONE PROPIONATE NASAL SPRAY) 16 Gm [place]wey.susp, 1 SPRAYS NS BID for allergies 09/20/20 Simvastatin (SIMVASTATIN) 20 Mg Tablet, 1 TAB PO QHS, #30 TAB 5 Refills 11/20/15 Discontinued Reported Medications Icosapent Ethyl (Icosapent Ethyl) 1 Gm Capsule, 2 CAP PO BID for high lipids 09/20/20 Metformin Hcl (METFORMIN HCL) 1,000 Mg Tablet, 1 TAB PO BID for diabetes 09/20/20 Semaglutide (Rybelsus) 7 Mg Tablet, 1 TAB PO DAILY for diabetes 09/20/20 Dapagliflozin Propanediol (FARXIGA) 10 Mg Tablet, 1 TAB PO DAILY for diabetes 09/20/20 WILD SHAW MD Oct 25, 2020 10:05
--- NOTE | 2020-10-25 10:21 | NUR ---
SS following up with discharge planning. SS reviewed pt chart and discussed with pt RN. Pt is currently on room air. COVID19 recovered. PT/OT recommended acute rehabilitation. Pt accepted at [facility], ; fax [phone]. Insurance authorization received. Discharge orders received and phoned and faxed to [facility]. SS discussed with [place] in admissions. SS currently awaiting bed and transportation time from [facility] and will proceed accordingly with discharge planning. Addendum: 10/25/20 at 1629 by SWAPNA FULLER SS [facility] contacted SS and reported that bed not available until tomorrow. Pt will discharge tomorrow at 1300 and go to [facility]. [facility] to provide transportation. Pt, pt's RN, and pt's spouse notified.
[2020-10-25 10:39] VITALS: BP 136/69
[2020-10-25] MEDS ORDERED: PANT40TA77 PO (10:48)
[2020-10-25] MEDS: ENOXAPARIN 40 MG/0.4 ML SYRINGE. SQ SCH (12:09)
[2020-10-25 15:00] VITALS: BP 128/65
--- NOTE | 2020-10-25 19:17 | NUR ---
dc on 10/26/20 to [facility]r. [facility]
[2020-10-25 19:39] VITALS: BP 123/66
[2020-10-25] MEDS ORDERED: INSULIN LISPRO 300 UNITS/3 ML VIAL. SQ SCH (19:45)
[2020-10-25] MEDS: SIMVASTATIN 20 MG TABLET PO SCH (22:32)
[2020-10-25] MEDS: ZOLPIDEM 5 MG TABLET. PO PRN (22:32)
[2020-10-25 22:39] VITALS: BP 119/63
[2020-10-26 07:00] VITALS: BP 122/68
[2020-10-26] MEDS: INSULIN LISPRO 300 UNITS/3 ML VIAL. SQ SCH ×2 (07:30→11:30)
--- NOTE | 2020-10-26 07:32 | PDOC ---
PROGRESS NOTES Date of Service: DATE: 10/26/20 TIME: 07:32 Chief Complaint Chief Complaint Acute COVID-19 pneumonia Status post brief CODE BLUE [place] Acute hypoxic respiratory failure Sepsis - due to above Bradycardia Diabetes mellitus type 2 HTN HLD CAD Acute on chronic combined systolic and diastolic CHF h/o Cardiomyopathy - historically EF of 40-45%. History of Present Illness History of Present Illness 10/25/2020: Afebrile. Currently breathing on 2 L nasal cannula. Stable diffuse interstitial infiltrate superimposed on suspected chronic interstitial changes. amiodarone infusion, per cardiology. Convert meds to PO. Amiodarone for rhythm maintenance ST following to assess swallow safety; possible video swallow. Intubated 09/23- 10/14. long recovery time; would be good candidate for LTAC once stable from cardiac standpoint. Continue nightly BiPAP. 26 minutes spent reviewing charts, reviewing labs, reviewing imaging, discussion with RN. ACCEPTED AT [facility] 10-25 Patient was transferred to the ICU on the night of 10/19/20 due to ventricular tachycardia and brief asystole for which he required 1 minute of CPR. Atrial fibrillation with RVR during extubation attempt: maintaining SR Coronary artery disease s/p single-vessel coronary artery bypass surgery with GUZMAN to LAD. clinically stable Hypertension: better controlled Hyperlipidemia Diabetes mellitus type 2: Treat per IM NICM: recovered. EF and WM nl per TTE D/C PLANNING 34 MIN 10/26/2020: K 4.1 Afebrile. Currently breathing on 2 L nasal cannula. Stable diffuse interstitial infiltrate superimposed on suspected chronic interstitial changes. amiodarone infusion, per cardiology. Convert meds to PO. Amiodarone for rhythm maintenance ST following to assess swallow safety; possible video swallow. Intubated 09/23- 10/14. long recovery time; would be good candidate for LTAC once stable from cardiac standpoint. Continue nightly BiPAP. 26 minutes spent reviewing charts, reviewing labs, reviewing imaging, discussion with RN. ACCEPTED AT [facility] 10-25 Patient was transferred to the ICU on the night of 10/19/20 due to ventricular tachycardia and brief asystole for which he required 1 minute of CPR. Atrial fibrillation with RVR during extubation attempt: maintaining SR Coronary artery disease s/p single-vessel coronary artery bypass surgery with GUZMAN to LAD. clinically stable Hypertension: better controlled Hyperlipidemia Diabetes mellitus type 2: Treat per IM NICM: recovered. EF and WM nl per TTE D/C PLANNING 32 MIN Follow up with Dr. Butts on December 05 at 1:45 PM 10/24/2020: Afebrile. Currently breathing on 2 L nasal cannula. Stable diffuse interstitial infiltrate superimposed on suspected chronic interstitial changes. amiodarone infusion, per cardiology. Convert meds to PO. Amiodarone for rhythm maintenance ST following to assess swallow safety; possible video swallow. Intubated 10/14. long recovery time; would be good candidate for LTAC once stable from cardiac standpoint. Continue nightly BiPAP. 26 minutes spent reviewing charts, reviewing labs, reviewing imaging, discussion with RN. ACCEPTED AT [facility] T[facility]ROW Patient was transferred to the ICU on the night of 10/19/20 due to ventricular tachycardia and brief asystole for which he required 1 minute of CPR. Atrial fibrillation with RVR during extubation attempt: maintaining SR Coronary artery disease s/p single-vessel coronary artery bypass surgery with GUZMAN to LAD. clinically stable Hypertension: better controlled Hyperlipidemia Diabetes mellitus type 2: Treat per IM NICM: recovered. EF and WM nl per TTE 10/23/2020: Afebrile. Currently breathing on 2 L nasal cannula. amiodarone infusion, per cardiology. ST following to assess swallow safety; possible video swallow. Intubated 09/23- 10/14. Likely looking at long recovery time; would be good candidate for LTAC once stable from cardiac standpoint. Continue nightly BiPAP. 26 minutes spent reviewing charts, reviewing labs, reviewing imaging, discussion with RN. ACCEPTED AT [facility] TOMORROW Patient was transferred to the ICU on the night of 10/19/20 due to ventricular tachycardia and brief asystole for which he required 1 minute of CPR. 10/22/2020: Afebrile. Currently breathing on 2 L nasal cannula. Continue amiodarone infusion, per cardiology. ST following to assess swallow safety; possible video swallow. Intubated 09/23-10/14. Likely looking at long recovery time; would be good candidate for LTAC once stable from cardiac standpoint. Continue nightly BiPAP. Critical care time 30 minutes spent reviewing charts, reviewing labs, reviewing imaging, discussion with RN. 10/21/2020 Patient seen and examined in the ICU, his is present she seems to be good support for him, patient is a lot more alert today, he is able to use 1 or 2 word sentences, is only requiring oxygen via nasal cannula, has a swallow study tomorrow morning Discussed with RN, chart reviewed 10/20: Patient seen and examined in the ICU. Currently on 3 L of oxygen per nasal cannula. His Jenni is present. Discussed with RN. Chart reviewed. Patient was resting with NAD. Transferred to ICU last night due to ventricular tachycardia with brief asystole requiring CPR. On 3L O2 per nasal canula. O2 Sat is 97%. Requiring nightly BIPAP with 40% FiO2. IV Potassium was initiated due to potassium level of 2.8. Started on Clinimix. On amiodarone drip, IV fluids, IV zosyn. Plan to place PICC line today. Chest X-ray indicated mild improvement. 10/19/2020 No acute events overnight. Patient saturating 93% on 5 L nasal cannula. Working with physical therapy at the time with at bedside. Definitely improvement since his ICU course. Failed swallow study we'll continue with n.p.o. Potassium of 2.7 and magnesium 1.5 today. Will replace IV electrolytes. Patient's chart, labs, images were reviewed and discussed with RN 10/18/2020 patient seen and examined in the ICU his Jenni is present she has good support for him currently on nasal cannula oxygen at 5 L Amado to bedside drainage rectal tube in place discussed with RN chart reviewed 10/17/2020 Patient seen and examined in the ICU His is present Currently back on BiPAP 16 with 40% FiO2 O2 sat is 99% I reviewed the chest x-rays and labs with his Chart reviewed Discussed with RN He remains critically ill Mr Morrissey is a 65-year-old white male w/ PMHx HTN, DM2, HLD, GERD, CAD s/p CABG 2011 presented to ED due to worsening cough and shortness of breath; patient also experiencing vomiting and diarrhea. Patient was recently diagnosed with COVID-19 on September 11 and has been doing well since that until a few days prior to arrival when his symptoms acutely worsened this morning. Has not received Covid vaccine. Close contacts at home have very similar symptoms. 09/21: Patient saturating 98% on 10 L nasal cannula. Increasing O2 requirements may consider pulmonology consult. On remdesivir, steroids 09/22: Patient saturating 91% on 10 L nasal cannula. Shortness of breath with ambulation. Combivent inhaler ordered today. 09/23: Patient is requiring increasing O2 requirements. Saturating 88% on 15 L nonrebreather and also nasal cannula. ICU transfer and intubated. 09/24: In ICU on vent. Afebrile, currently breathing FiO2 100%, PEEP 10. Final dose of remdesivir today. 09/25: Afebrile. On vent with FiO2 80%, PEEP 9. He has completed course of re mdesivir. IV steroids for total dose 10 days and IV Zosyn. 09/26: Afebrile. Remains on vent with FiO2 70%, PEEP 8. Completed remdesivir. Continue prophylactic IV Zosyn. 09/27: No acute events overnight. Afebrile. On vent with FiO2 70%, PEEP 8. Cont IV antibiotics and steroids, with taper. Completed remdesivir. 09/28: Afebrile. On vent with FiO2 90%, PEEP 8. Completed remdesivir. Continue IV antibiotics. KUB with good OGT placement 09/29: Afebrile. On vent with increased oxygen requirement, FiO2 100%, PEEP 8. CXR increasing bilateral airspace opacities 09/30: On vent with FiO2 90%, PEEP 8. Afebrile. Steroids have been increased to dexamethasone 20 mg for 5 days, 10 mg for 5 days 10/01: No acute events overnight. Patient saturating 97% on vent settings of 22/500/80/8. Currently sedated and intubated. 10/02: Patient saturating 95% on vent settings of 22/500/75/7. ABG expected at 7.4 /72/28. Currently intubated and sedated. 10/03: No acute events overnight. Patient saturating 94% on vent settings of 22/500/75/7. Improved sugar control. 10/04: Saturating 100% on vent settings of 22/500/65/7. Last ABG show pH of 7.5 236/113/28. Adjustments to vent settings by pulmonology. 10/05: No acute events overnight. Patient saturating 96% on vent settings of 20 /500/65/7. Discussed prognosis with family. 10/06: No acute events overnight. Patient saturating 95% on vent settings of 20/500/50/6. No other concerns from nursing at this time. 10/07: No acute events overnight. Patient saturating 96% on vent settings of 20/500/50/6. T-max of 100.3. 10/08: Afebrile overnight. Sedated with propofol Versed and fentanyl PEEP of 6 FiO2 50% ABG 7.4 . Discussed with bedside. 10/09: T-max 100.3 F. Sedated with propofol Versed fentanyl, O2 saturations 96%, ABG 7.4 / on FiO2 50% and normal PEEP of 6. D/w bedside. Good UOP 10/10: Afebrile. Sedation wean this morning respirations increased significantly back on sedation. ABG 7.40 / FiO2 45% PEEP 6. Discussed with bedside O2 is significantly improving. 10/11: Afebrile. Agitated with sedation wean added Precedex. FiO2 40% PEEP 5. Will attempt sedation wean again today. D/w bedside. 10/12: Chest radiograph improved . ABG 7.4 8/95 on 40% FiO2 PEEP 5. Respiratory rate 28 with wean this morning and blood pressure elevated. Will try to wean again later today. Discussed with at bedside 10/13: Febrile 101.1 F overnight. Very agitated with attempted wean with increased BP ABG 7.471/38.4/71.2 on FiO2 40% PEEP 5. Respiratory blood and urine cultures for fever. Zosyn for coverage for possible VAP, f/u CXR 10/14: Afebrile. O2 saturations improved with furosemide. Urine output 2.7 L. K3.3 mag 1.7 WBC 7.6, Hb 9.3, platelets 158. Starting vent wean. Cultures pending, still on zosyn 10/13 Discussed with Pulmonology adding low-dose Haldol with vent weans will hold on propofol as QT sees around 470. Will maintain telemetry. As needed hydralazine and Vasotec for elevated blood pressure. Discussed with bedside CC time 34 minutes 10/15/2020: Patient seen and examined in the ICU with family present. Currently on BiPAP 16/16, 50% FiO2, and rate 20. Sedated with dexmedetomidine. On diltiazem drip. Amado to BSD. Rectal bag present. Triple lumen PICC in the right arm and right heel ulcer present. Chest x-ray from today showed stable diffuse bilateral opacities.Discussed with RN. Chart reviewed. 10/16/2020 Patient seen and examined in the ICU His is present Currently on Ventimask 50% FiO2 Chart reviewed Discussed with RN He is still quite ill Vitals Vitals Vital Signs Date Time Temp Pulse Resp B/P (MAP) Pulse Ox O2 Delivery O2 Flow Rate FiO2 10/25/20 22:39 98.7 77 18 119/63 (81) 94 Room Air 98.7 10/25/20 07:23 2.0 Physical Exam Physical Exam LYING IN BED , NAD General: Alert, Oriented X3, Cooperative, No acute distress Heart: Regular rate, Normal S1 Lungs: Clear, Crackles Abdomen: Normal bowel sounds, Soft, No tenderness, No hepatosplenomegaly, No masses Extremities: No clubbing, No cyanosis Skin: No rashes, No significant lesion Labs LABS PATIENT: SHANI MORRISSEY ACCOUNT: [id number] : 1955 LOCATION: [address] [place] [address] AGE: 65 SEX: M EXAM STATUS: ADM IN ORD. PHYSICIAN: ERIC GOTTLIEB MD REASON: RESPIRATORY FAILURE PROCEDURE: PORTABLE CHEST 1V EXAM: Chest, single view. HISTORY: Respiratory failure. COMPARISON: 10/22/2020 FINDINGS: A frontal view of the chest is obtained. There is stable diffuse interstitial infiltrate superimposed on suspected chronic interstitial changes. There is no consolidation, pleural effusion or pneumothorax. There is a stable cardiac silhouette and evidence of prior mediastinal surgery. There is a left PICC with the tip overlying expected location of the superior cavoatrial junction. IMPRESSION: Stable diffuse interstitial infiltrate superimposed on suspected chronic interstitial changes. Electronically signed by: Eleonora Sahu MD (10/24/2020 8:41 AM) [id number] DICTATED and SIGNED BY: ELEONORA SAHU MD DATE: 10/24/20 [id number] Laboratory Tests Test 10/25/20 11:22 10/25/20 17:23 10/25/20 20:47 Glucose (Fingerstick) 209 mg/dL (70-99) 150 mg/dL (70-99) 163 mg/dL (70-99) Assessment and Plan Assessmemt and Plan Problems Medical Problems: (1) Bilateral pulmonary infiltrates on CXR Status: Acute (2) Fever Status: Acute (3) Hypoxia Status: Acute (4) Lab test positive for detection of COVID-19 virus Status: Acute Comment Review of Relevant I have reviewed the following items lukasz (where applicable) has been applied. Labs Laboratory Tests Test 10/24/20 09:20 10/24/20 12:03 10/24/20 16:53 10/24/20 22:59 Potassium Level 3.8 mmol/L (3.5-5.1) Magnesium Level 1.9 mg/dL (1.8-2.4) Glucose (Fingerstick) 193 mg/dL (70-99) 190 mg/dL (70-99) 152 mg/dL (70-99) Test 10/25/20 05:00 10/25/20 06:46 10/25/20 11:22 10/25/20 17:23 Potassium Level 3.9 mmol/L (3.5-5.1) Magnesium Level 2.1 mg/dL (1.8-2.4) Glucose (Fingerstick) 156 mg/dL (70-99) 209 mg/dL (70-99) 150 mg/dL (70-99) Test 10/25/20 20:47 Glucose (Fingerstick) 163 mg/dL (70-99) Laboratory Tests Test 10/25/20 11:22 10/25/20 17:23 10/25/20 20:47 Glucose (Fingerstick) 209 mg/dL (70-99) 150 mg/dL (70-99) 163 mg/dL (70-99) Microbiology 10/13/20 Blood Culture - Final, Complete NO GROWTH AFTER 5 DAYS 10/13/20 Gram Stain Evaluation - Final, Complete 10/13/20 Respiratory Culture - Final, Complete 10/13/20 Urine Culture - Final, Complete 10/13/20 Antimicrobic Susceptibility - Final, Complete Medications Current Medications Sodium Chloride 1,000 ml @ 1,000 mls/hr 1X ONCE IV Last administered on 09/20/20at 14:45; Start 09/20/20 at 14:30; Stop 09/20/20 at 15:29; Status DC Dexamethasone Sodium Phosphate (Decadron) 10 mg 1X ONCE IV Last administered on 09/20/20at 14:50; Start 09/20/20 at 14:30; Stop 09/20/20 at 14:31; Status DC Piperacillin Sod/ Tazobactam Sod 3.375 gm/Sodium Chloride 50 ml @ 100 mls/hr 1X ONCE IV Last administered on 09/20/20at 15:22; Start 09/20/20 at 15:30; Stop 09/20/20 at 15:59; Status DC Acetaminophen (Tylenol) 1,000 mg 1X ONCE PO Last administered on 09/20/20at 15:22; Start 09/20/20 at 15:30; Stop 09/20/20 at 15:31; Status DC Ondansetron HCl (Zofran) 4 mg PRN Q8HRS PRN IVP NAUSEA/VOMITING; Start 09/20/20 at 15:45; Stop 09/20/20 at 17:11; Status DC Morphine Sulfate (Morphine Sulfate) 2 mg PRN Q2HR PRN IVP PAIN; Start 09/20/20 at 15:45; Stop 09/21/20 at 15:44; Status DC Acetaminophen (Tylenol) 650 mg PRN Q4HRS PRN PO FEVER > 100.3'F; Start 09/20/20 at 15:45; Stop 09/21/20 at 15:44; Status Cancel Insulin Human Lispro (HumaLOG) 0-5 UNITS TIDWMEALS SQ Last administered on 09/21/20at 12:34; Start 09/20/20 at 17:00; Stop 09/21/20 at 13:33; Status DC Dextrose (Dextrose 50%-Water Syringe) 12.5 gm PRN Q15MIN PRN IV SEE COMMENTS; Start 09/20/20 at 15:45 Ondansetron HCl (Zofran) 4 mg PRN Q6HRS PRN IVP NAUSEA/VOMITING; Start 09/20/20 at 17:00; Stop 10/13/20 at 07:54; Status DC Calcium Carbonate/ Glycine (Tums) 500 mg PRN Q3HRS PRN PO UPSET STOMACH Last administered on 09/23/20at 11:47; Start 09/20/20 at 17:00 Zolpidem Tartrate (Ambien) 5 mg PRN QHS PRN PO INSOMNIA, MAY REPEAT IN 1HR; Start 09/20/20 at 17:00; Stop 10/13/20 at 07:54; Status DC Info (Non-Icu Electrolyte Protocol) 1 ea PRN DAILY PRN MC SEE COMMENTS; Start 09/20/20 at 17:00; Status Cancel Oxycodone/ Acetaminophen (Percocet 5/325) 1 tab PRN Q4HRS PRN PO MILD PAIN, 1ST CHOICE; Start 09/20/20 at 17:00 Oxycodone/ Acetaminophen (Percocet 5/325) 2 tab PRN Q4HRS PRN PO MODERATE PAIN, SEVERE PAIN Last administered on 10/25/20at 07:59; Start 09/20/20 at 17:00 Acetaminophen (Tylenol) 650 mg PRN Q6HRS PRN PO Headaches, Temp > 101.5F Last administered on 10/14/20at 09:03; Start 09/20/20 at 17:00 Senna/Docusate Sodium (Senna Plus) 1 tab BID PO Last administered on 10/25/20at 22:31; Start 09/20/20 at 21:00 Enoxaparin Sodium (Lovenox 40mg Syringe) 40 mg Q12HR SQ Last administered on 10/15/20at 07:46; Start 09/20/20 at 17:00; Stop 10/15/20 at 13:58; Status DC Potassium Chloride (Klor-Con) 40 meq 1X ONCE PO Last administered on 09/20/20at 17:34; Start 09/20/20 at 17:00; Stop 09/20/20 at 17:06; Status DC Piperacillin Sod/ Tazobactam Sod (Zosyn Per Pharmacy) 1 each PRN DAILY PRN MC SEE COMMENTS; Start 09/20/20 at 17:00; Stop 10/01/20 at 08:49; Status DC Azithromycin (Zithromax) 500 mg 1X ONCE PO Last administered on 09/20/20at 17:34; Start 09/20/20 at 17:00; Stop 09/20/20 at 17:07; Status DC Dexamethasone Sodium Phosphate (Decadron) 6 mg DAILY IVP Last administered on 09/28/20at 08:02; Start 09/21/20 at 09:00; Stop 09/29/20 at 07:20; Status DC Guaifenesin/ Codeine Phosphate (Robitussin Ac) 5 ml PRN Q6HRS PRN PO COUGH Last administered on 09/23/20at 11:49; Start 09/20/20 at 17:00 Multivitamins (Thera M Plus) 1 tab DAILY PO Last administered on 09/28/20at 08:02; Start 09/21/20 at 09:00; Stop 09/29/20 at 07:56; Status DC Aspirin (Aspirin Chewable) 81 mg DAILYWBKFT PO Last administered on 10/25/20at 08:02; Start 09/21/20 at 08:00 Metoprolol Succinate (Toprol Xl) 12.5 mg HS PO Last administered on 09/22/20at 20:28; Start 09/20/20 at 21:00; Stop 09/25/20 at 14:13; Status DC Pantoprazole Sodium (Protonix) 40 mg DAILYAC PO Last administered on 09/23/20at 09:28; Start 09/21/20 at 07:30; Stop 09/24/20 at 09:14; Status DC Simvastatin (Zocor) 20 mg QHS PO Last administered on 10/25/20at 22:32; Start 09/20/20 at 21:00 Piperacillin Sod/ Tazobactam Sod 3.375 gm/Sodium Chloride 50 ml @ 100 mls/hr Q6HRS IV Last administered on 10/01/20at 06:00; Start 09/20/20 at 18:00; Stop 10/01/20 at 07:01; Status DC Remdesivir 200 mg/ Sodium Chloride 210 ml @ 210 mls/hr 1X ONCE IV Last administered on 09/20/20at 21:12; Start 09/20/20 at 20:00; Stop 09/20/20 at 20:59; Status DC Remdesivir 100 mg/ Sodium Chloride 230 ml @ 460 mls/hr Q24H IV Last administered on 09/24/20at 19:28; Start 09/21/20 at 20:00; Stop 09/24/20 at 20:29; Status DC Insulin Glargine (Lantus Syringe) 20 unit BID SQ Last administered on 10/01/20at 08:34; Start 09/21/20 at 21:00; Stop 10/01/20 at 12:36; Status DC Insulin Human Lispro (HumaLOG) 0-9 UNITS TIDWMEALS SQ Last administered on 09/23/20 17:28; Start 09/21/20 at 17:00; Stop 09/23/20 at 23:06; Status DC Lactobacillus Rhamnosus (Culturelle) 1 cap BID PO Last administered on at 09:28; Start 09/21/20 at 21:00; Stop 09/24/20 at 09:21; Status DC Ascorbic Acid (Vitamin C) 1,000 mg TID PO Last administered on 10/25/20at 22:31; Start 09/21/20 at 21:00 Zinc Sulfate (Orazinc) 220 mg DAILY PO Last administered on 10/25/20at 08:02; Start 09/22/20 at 09:00 Insulin Human Lispro (HumaLOG) 5 units TIDWMEALS SQ Last administered on 09/23/20at 17:29; Start 09/22/20 at 12:00; Stop 09/24/20 at 09:18; Status DC Albuterol/ Ipratropium (Combivent Respimat 20-100 Mcg) 1 puff PRN QID PRN INH SHORTNESS OF BREATH Last administered on 09/23/20at 09:28; Start 09/22/20 at 12:45 Sterile Water (WATER for RESP) 1,000 ml CONT PRN INH VIA VAPOTHERM DEVICE Last administered on 09/23/20at 14:55; Start 09/23/20 at 12:45; Stop 09/24/20 at 09:20; Status DC Dexmedetomidine HCl 400 mcg/ Sodium Chloride 100 ml @ 0 mls/hr CONT PRN IV PER PROTOCOL Last administered on 10/18/20 06:02; Start 09/23/20 at 18:00 Sodium Chloride 500 ml @ 500 mls/hr 1X PRN PRN IV SEE COMMENTS; Start 09/23/20 at 18:00 Atropine Sulfate (ATROPINE 0.5mg SYRINGE) 0.5 mg PRN Q5MIN PRN IV SEE COMMENTS; Start 09/23/20 at 18:00 Lorazepam (Ativan Inj) 0.25 mg 1X ONCE IVP Last administered on 09/23/20at 20:23; Start 09/23/20 at 20:15; Stop 09/23/20 at 20:16; Status DC Fentanyl Citrate 30 ml @ 0 mls/hr CONT PRN IV SEE PROTOCOL Last administered on 09/29/20at 14:27; Start 09/23/20 at 21:15; Stop 09/29/20 at 22:00; Status DC Propofol 100 ml @ 0 mls/hr CONT PRN IV PER PROTOCOL Last administered on 10/14/20at 03:25; Start 09/23/20 at 21:15; Stop 10/17/20 at 10:30; Status DC Midazolam HCl 100 ml @ 0 mls/hr CONT PRN IV SEE PROTOCOL Last administered on 10/08/20at 20:48; Start 09/23/20 at 21:15; Stop 10/17/20 at 10:30; Status DC Succinylcholine Chloride (Anectine) 200 mg STK-MED ONCE .ROUTE ; Start 09/23/20 at 21:40; Stop 09/23/20 at 21:40; Status DC Insulin Human Lispro (HumaLOG) 0-9 UNITS Q6HRS SQ Last administered on 1at 12:14; Start 09/24/20 at 00:00; Stop 10/25/20 at 19:46; Status DC Succinylcholine Chloride (Anectine) 200 mg 1X ONCE IV Last administered on 09/23/20at 21:44; Start 09/24/20 at 03:00; Stop 09/24/20 at 03:01; Status DC Pantoprazole Sodium (PROTONIX VIAL for IV PUSH) 40 mg DAILY IVP Last administered on 10/25/20at 08:02; Start 09/25/20 at 09:00 Benzocaine (Americaine) 57 spray STK-MED ONCE TP ; Start 09/24/20 at 15:00; Stop 09/25/20 at 10:40; Status DC Potassium Chloride/Water 100 ml @ 100 mls/hr Q1H IV ; Start 09/25/20 at 10:45; Stop 09/25/20 at 12:44; Status UNV Potassium Chloride/Water 100 ml @ 100 mls/hr Q1H IV Last administered on 09/25/20at 14:44; Start 09/25/20 at 11:00; Stop 09/25/20 at 15:01; Status DC Sodium Chloride 1,000 ml @ 50 mls/hr Q20H IV Last administered on 10/09/20at 05:17; Start 09/28/20 at 15:00; Stop 10/10/20 at 09:01; Status DC Dexamethasone Sodium Phosphate (Decadron) 20 mg DAILY IVP Last administered on 09/30/20at 07:48; Start 09/29/20 at 09:00; Stop 10/01/20 at 07:01; Status DC Multivitamins/ Minerals Therapeutic (Centrum Multivit-Mineral Liq) 5 ml DAILY PEG Last administered on 10/14/20at 08:58; Start 09/29/20 at 09:00 Fentanyl Citrate 55 ml @ 1.5 mls/hr CONT PRN IV SEE I/O Last administered on 10/08/20at 10:28; Start 09/29/20 at 21:15; Stop 10/09/20 at 16:29; Status DC Furosemide (Lasix) 20 mg 1X ONCE IVP Last administered on 09/30/20at 11:52; Start 09/30/20 at 11:00; Stop 09/30/20 at 11:01; Status DC Dexamethasone Sodium Phosphate (Decadron) 10 mg DAILY IVP Last administered on 10/03/20at 07:32; Start 10/01/20 at 09:00; Stop 10/03/20 at 11:01; Status DC Insulin Glargine (Lantus Syringe) 25 unit BID SQ Last administered on 10/25/20at 22:35; Start 10/01/20 at 21:00 Nystatin (Nystop) 1 richard BID TP Last administered on 10/25/20at 22:34; Start 10/07/20 at 09:00 Magnesium Sulfate/ Dextrose 100 ml @ 100 mls/hr 1X ONCE IV Last administered on 10/08/20at 11:04; Start 10/08/20 at 11:00; Stop 10/08/20 at 11:59; Status DC Info (Icu Electrolyte Protocol) 1 ea CONT PRN PRN MC SEE COMMENTS; Start 10/08/20 at 10:30 Magnesium Sulfate 50 ml @ 25 mls/hr 1X ONCE IV Last administered on 10/09/20at 08:36; Start 10/09/20 at 07:45; Stop 10/09/20 at 09:44; Status DC Fentanyl Citrate 30 ml @ 1.5 mls/hr CONT PRN PRN IV SEE PROTOCOL Last a dministered on 10/14/20at 09:20; Start 10/09/20 at 16:30; Stop 10/17/20 at 10:30; Status DC Hydralazine HCl (Apresoline Inj) 10 mg PRN Q4HRS PRN IVP ELEVATED BP, SEE COMMENTS Last administered on 10/20/20at 15:37; Start 10/12/20 at 11:15 Vecuronium [place] (Norcuron Bolus) 6 mg PRN Q6HRS PRN IV VENTILATOR COMPLIANCE Last administered on 10/12/20at 23:39; Start 10/12/20 at 23:45; Stop 10/17/20 at 10:30; Status DC Haloperidol Lactate (Haldol Inj) 5 mg Q8HRS IVP ; Start 10/13/20 at 08:30; Stop 10/13/20 at 09:42; Status DC Potassium Bicarbonate (Potassium Effervescent Tablet) 40 meq 1X ONCE PO Last administered on 10/13/20at 08:41; Start 10/13/20 at 08:00; Stop 10/13/20 at 08:09; Status DC Enalaprilat (Vasotec Inj) 1.25 mg PRN Q6HRS PRN IVP HYPERTENSION- 2nd choice [place] [facility] administered on 10/16/20at 12:42; Start 10/13/20 at 08:30 Haloperidol Lactate (Haldol Inj) 2.5 mg PRN Q8HRS PRN IVP Agitation during vent wean Last administered on 10/14/20at 17:05; Start 10/13/20 at 09:45; Stop 10/17/20 at 10:30; Status DC Piperacillin Sod/ Tazobactam Sod 3.375 gm/Sodium Chloride 50 ml @ 100 mls/hr Q6HRS IV Last administered on 10/25/20at 12:09; Start 10/13/20 at 11:00 Piperacillin Sod/ Tazobactam Sod (Zosyn Per Pharmacy) 1 each PRN DAILY PRN MC SEE COMMENTS; Start 10/13/20 at 09:45 Furosemide (Lasix) 40 mg 1X ONCE IVP Last administered on 10/13/20at 15:55; Start 10/13/20 at 14:45; Stop 10/13/20 at 14:46; Status DC Potassium Chloride/Water 100 ml @ 100 mls/hr 1X ONCE IV Last administered on 10/13/20at 15:55; Start 10/13/20 at 15:00; Stop 10/13/20 at 15:59; Status DC Magnesium Sulfate 50 ml @ 25 mls/hr 1X ONCE IV Last administered on 10/14/20at 08:59; Start 10/14/20 at 07:30; Stop 10/14/20 at 09:29; Status DC Potassium Bicarbonate (Potassium Effervescent Tablet) 40 meq 1X ONCE PO Last administered on 10/14/20at 08:57; Start 10/14/20 at 07:30; Stop 10/14/20 at 07:31; Status DC Metoprolol Tartrate (Lopressor Vial) 5 mg PRN Q5MIN PRN IVP TACHYCARDIA Last administered on 10/15/20at 09:17; Start 10/15/20 at 08:45 Fentanyl Citrate (Fentanyl 2ml Vial) 50 mcg PRN Q2HR PRN IVP PAIN Last administered on 10/23/20at 06:20; Start 10/15/20 at 08:45 Diltiazem HCl 125 mg/Sodium Chloride 125 ml @ 5 mls/hr CONT PRN IV SEE I/O RECORD Last administered on 10/15/20at 16:04; Start 10/15/20 at 09:30; Stop 10/16/20 at 12:56; Status DC Furosemide (Lasix) 40 mg DAILY IVP Last administered on 10/17/20at 07:41; Start 10/15/20 at 11:00; Stop 10/17/20 at 09:01; Status DC Potassium Chloride/Water 100 ml @ 100 mls/hr Q1H IV Last administered on 10/15/20at 11:24; Start 10/15/20 at 11:00; Stop 10/15/20 at 12:59; Status DC Digoxin (Lanoxin) 500 mcg 1X ONCE IV Last administered on 10/15/20at 11:11; Start 10/15/20 at 11:15; Stop 10/15/20 at 11:16; Status DC Heparin Sodium/ Dextrose 250 ml @ 0 mls/hr CONT PRN IV PER PROTOCOL Last administered on 10/16/20at 08:17; Start 10/15/20 at 14:00; Stop 10/16/20 at 12:56; Status DC Heparin Sodium (Porcine) (Heparin Sodium) 2,850 unit PRN Q6HRS PRN IV FOR UFH LEVEL LESS THAN 0.2 Last administered on 10/16/20at 11:41; Start 10/15/20 at 14:00; Stop 10/16/20 at 12:56; Status DC Perflutren Protein Type A Microsphe (Optison) 0.66 mg 1X ONCE IV Last administered on 10/16/20at 07:30; Start 10/16/20 at 07:30; Stop 10/16/20 at 07:31; Status DC Perflutren Protein Type A Microsphe (Optison) 0.66 mg STK-MED ONCE IV ; Start 10/16/20 at 07:43; Stop 10/16/20 at 07:43; Status DC Magnesium Sulfate 50 ml @ 25 mls/hr 1X ONCE IV Last administered on 10/16/20at 0 9:52; Start 10/16/20 at 09:45; Stop 10/16/20 at 11:44; Status DC Enoxaparin Sodium (Lovenox 40mg Syringe) 40 mg Q24H SQ Last administered on 10/25/20at 12:09; Start 10/16/20 at 13:00 Magnesium Sulfate 50 ml @ 25 mls/hr 1X ONCE IV Last administered on 10/17/20at 07:41; Start 10/17/20 at 07:00; Stop 10/17/20 at 08:59; Status DC Metoprolol Tartrate (Lopressor Vial) 5 mg Q6HRS IVP Last administered on 10/17/20at 17:20; Start 10/17/20 at 13:00; Stop 10/19/20 at 12:36; Status DC Nitroglycerin (Nitro-Bid Oint) 1 inch Q6HRS TP Last administered on 10/23/20at 06:15; Start 10/17/20 at 13:00; Stop 10/23/20 at 11:22; Status DC Furosemide (Lasix) 40 mg DAILY IVP Last administered on 10/19/20at 08:37; Start 10/18/20 at 09:00; Stop 10/23/20 at 11:22; Status DC Ondansetron HCl (Zofran) 4 mg STK-MED ONCE .ROUTE ; Start 10/17/20 at 14:08; Stop 10/17/20 at 14:09; Status DC Ondansetron HCl (Zofran) 4 mg PRN Q6HRS PRN IVP NAUSEA/VOMITING Last administered on 10/22/20at 21:49; Start 10/17/20 at 14:45 Adenosine (Adenocard) 6 mg 1X ONCE IV Last administered on 10/17/20at 22:00; Start 10/17/20 at 22:00; Stop 10/17/20 at 22:01; Status DC Adenosine (Adenocard) 12 mg 1X ONCE IV Last administered on 10/17/20at 22:15; Start 10/17/20 at 22:15; Stop 10/17/20 at 22:16; Status DC Diltiazem HCl 125 mg/Sodium Chloride 125 ml @ 5 mls/hr CONT PRN IV SEE I/O RECORD Last administered on 10/19/20at 18:34; Start 10/17/20 at 21:45 Diltiazem HCl (Cardizem Iv Push) 10 mg 1X ONCE IVP Last administered on 10/17/20at 22:05; Start 10/17/20 at 22:00; Stop 10/17/20 at 22:01; Status DC Digoxin (Lanoxin) 250 mcg 1X ONCE IV Last administered on 10/17/20at 23:53; Start 10/18/20 at 00:00; Stop 10/18/20 at 00:01; Status DC Digoxin (Lanoxin) 250 mcg 1X ONCE IV Last administered on 10/18/20at 00:46; Start 10/18/20 at 00:30; Stop 10/18/20 at 00:31; Status DC Sodium Chloride 1,000 ml @ 80 mls/hr [id number] IV Last administered on 10/19/20at 17:46; Start 10/18/20 at 06:00; Stop 10/20/20 at 10:30; Status DC Magnesium Sulfate 50 ml @ 25 mls/hr 1X ONCE IV Last administered on 10/18/20at 11:02; Start 10/18/20 at 08:15; Stop 10/18/20 at 10:14; Status DC Potassium Chloride/Water 100 ml @ 50 mls/hr 1X ONCE IV ; Start 10/18/20 at 09:00; Stop 10/18/20 at 08:37; Status DC Potassium Chloride/Water 100 ml @ 50 mls/hr Q2H IV Last administered on 10/18at 11:01; Start 10/18/20 at 09:00; Stop 10/18/20 at 12:59; Status DC Amiodarone HCl 150 mg/Dextrose 103 ml @ 600 mls/hr 1X ONCE IV Last administered on 10/18/20at 14:55; Start 10/18/20 at 13:30; Stop 10/18/20 at 13:45; Status DC Amiodarone HCl 450 mg/Dextrose 259 ml @ 0 mls/hr CONT PRN IV SEE I/O RECORD Last administered on 10/19/20at 09:47; Start 10/18/20 at 13:30; Stop 10/19/20 at 13:29; Status DC Acetaminophen (Tylenol Supp) 650 mg PRN Q6HRS PRN UT MILD PAIN / TEMP > 100.3'F Last administered on 10/18/20at 23:49; Start 10/18/20 at 23:45 Magnesium Sulfate 50 ml @ 25 mls/hr 1X ONCE IV Last administered on 10/19/20at 13:37; Start 10/19/20 at 13:30; Stop 10/19/20 at 15:29; Status DC Potassium Chloride/Water 100 ml @ 100 mls/hr Q1H IV Last administered on 10/19/20at 17:36; Start 10/19/20 at 13:30; Stop 10/19/20 at 15:29; Status DC Metoprolol Tartrate (Lopressor Vial) 5 mg PRN Q6HRS PRN IVP SEE COMMENTS; Start 10/19/20 at 12:45 Potassium Chloride/Water 20 ml @ 20 mls/hr Q1H IV ; Start 10/19/20 at 15:30; St op 10/19/20 at 17:29; Status Cancel Sodium Chloride (Normal Saline Flush) 10 ml QSHIFT PRN IV AFTER MEDS AND BLOOD DRAWS; Start 10/19/20 at 21:45 Sodium Chloride (Normal Saline Flush) 20 ml QSHIFT PRN IV AFTER MEDS AND BLOOD DRAWS; Start 10/19/20 at 21:45 Potassium Chloride/Water 100 ml @ 100 mls/hr Q1H IV Last administered on 10/20/20at 04:30; Start 10/20/20 at 00:30; Stop 10/20/20 at 04:29; Status DC Magnesium Sulfate 50 ml @ 25 mls/hr 1X ONCE IV Last administered on 10/20/20at 00:31; Start 10/20/20 at 00:30; Stop 10/20/20 at 02:29; Status DC Amiodarone HCl 450 mg/Dextrose 259 ml @ 0 mls/hr 1X ONCE IV Last administered on 10/20/20at 01:00; Start 10/20/20 at 01:00; Stop 10/20/20 at 01:01; Status DC Potassium Chloride/Water 100 ml @ 100 mls/hr Q1H IV Last administered on 10/20/20at 16:35; Start 10/20/20 at 09:00; Stop 10/20/20 at 16:59; Status DC Amino Acids/ Electrolytes/ Dextrose 1,000 ml @ 80 mls/hr [id number] IV Last administered on 10/25/20at 00:19; Start 10/20/20 at 08:30 Magnesium Sulfate 50 ml @ 25 mls/hr 1X ONCE IV Last administered on 10/20/20at 20:44; Start 10/20/20 at 21:00; Stop 10/20/20 at 22:59; Status DC Amiodarone HCl 150 mg/Dextrose 103 ml @ 600 mls/hr 1X ONCE IV Last administered on 10/21/20at 03:04; Start 10/21/20 at 03:30; Stop 10/21/20 at 03:40; Status DC Amiodarone HCl 450 mg/Dextrose 259 ml @ 0 mls/hr CONT PRN IV SEE I/O RECORD Last administered on 10/21/20at 11:06; Start 10/21/20 at 03:30; Stop 10/22/20 at 03:29; Status DC Potassium Chloride/Water 100 ml @ 100 mls/hr Q1H IV Last administered on 10/21/20at 04:01; Start 10/21/20 at 03:30; Stop 10/21/20 at 05:29; Status DC Potassium Chloride/Water 100 ml @ 100 mls/hr Q1H IV Last administered on 10/21/20at 14:44; Start 10/21/20 at 11:00; Stop 10/21/20 at 14:59; Status DC Potassium Chloride/Water 100 ml @ 100 mls/hr Q1H IV Last administered on 10/21/20at 18:14; Start 10/21/20 at 15:00; Stop 10/21/20 at 16:59; Status DC Amiodarone HCl 450 mg/Dextrose 259 ml @ 0 mls/hr CONT PRN IV SEE I/O RECORD Last administered on 10/22/20at 21:11; Start 10/22/20 at 02:00; Stop 10/23/20 at 01:59; Status DC Potassium Chloride/Water 100 ml @ 100 mls/hr Q1H IV Last administered on 10/22/20at 13:02; Start 10/22/20 at 12:00; Stop 10/22/20 at 13:59; Status DC Barium Sulfate (Varibar Thin Liquid Apple) 148 gm 1X ONCE PO Last administered on 10/23/20at 10:24; Start 10/23/20 at 10:00; Stop 10/23/20 at 10:01; Status DC Amiodarone HCl (Cordarone) 200 mg DAILY PO Last administered on 10/25/20at 08:00; Start 10/23/20 at 12:00 Metoprolol Tartrate (Lopressor) 12.5 mg BID PO Last administered on 10/25/20at 22:32; Start 10/23/20 at 12:00 Amlodipine Besylate (Norvasc) 5 mg DAILY PO Last administered on 10/25/20at 08:01; Start 10/23/20 at 12:00 Furosemide (Lasix) 20 mg DAILY PO Last administered on 10/25/20at 08:02; Start 10/24/20 at 09:00 Zolpidem Tartrate (Ambien) 5 mg PRN QHS PRN PO INSOMNIA Last administered on 10/25/20at 22:32; Start 10/23/20 at 21:30 Lactobacillus Rhamnosus (Culturelle) 1 cap BID PO Last administered on 10/25/20at 21:00; Start 10/24/20 at 09:00 Insulin Human Lispro (HumaLOG) 0-9 UNITS QIDACHS SQ ; Start 10/25/20 at 19:45; Stop 10/25/20 at 20:21; Status DC Insulin Human Lispro (HumaLOG) 0-9 UNITS QIDACHS SQ ; Start 10/25/20 at 21:00 Active Scripts Active Centrum Multivit-Mineral Liq (Multivits W-Min/Ferrous Gluc) 9 Mg/15 Ml Liquid 5 Ml PEG DAILY 30 Days Vitamin C (Ascorbic Acid) 1,000 Mg Tablet 1,000 Mg PO TID 30 Days Nyamyc (Nystatin) 15 Gm Powder 1 Richard TP BID 30 Days Admelog (Insulin Lispro) 100 Unit/1 Ml Vial 0 Units SQ Q6HRS 14 Days Lantus (Insulin Glargine,Hum.rec.anlog) 100 Unit/1 Ml Vial 25 Unit SQ BID 14 Days Culturelle (Lactobacillus Rhamnosus Gg) 1 Each Cap.sprink 1 Cap PO BID 30 Days Stool Softener-Stimulant Lax (Sennosides/Docusate Sodium) 1 Each Tablet 1 Tab PO BID 10 Days Calcium Carbonate 200 Mg Tab.chew 500 Mg PO PRN Q3HRS PRN 30 Days Furosemide 40 Mg Tablet 20 Mg PO DAILY 10 Days Zinc Sulfate 50 Mg Capsule 220 Mg PO DAILY 30 Days Ambien (Zolpidem Tartrate) 5 Mg Tablet 5 Mg PO PRN QHS PRN 14 Days Acetaminophen 325 Mg Tablet 650 Mg PO PRN Q6HRS PRN 14 Days Acetaminophen Supp (Acetaminophen) 650 Mg Supp.rect 650 Mg UT PRN Q6HRS PRN 30 Days Aspirin 81 Mg Tab.chew 81 Mg PO DAILYWBKFT 30 Days Amlodipine Besylate 5 Mg Tablet 5 Mg PO DAILY 30 Days Metoprolol Tartrate 25 Mg Tablet 12.5 Mg PO BID 30 Days Amiodarone Hcl 200 Mg Tablet 200 Mg PO DAILY 30 Days Enoxaparin Sodium 40 Mg/0.4 Ml Disp.syrin 40 Mg SQ Q24H 30 Days Combivent Respimat Inhal (Ipratropium/Albuterol Sulfate) 4 Gm Aer.w.adap 1 Puff INH PRN QID PRN 30 Days Reported Pantoprazole Sodium (Pantoprazole Sodium) 40 Mg Tablet.dr 40 Mg PO DAILYAC Trelegy Ellipta 100-62.5-25 (Fluticasone/Umeclidin/Vilanter) 1 Each Blst.w.dev 1 Puff INH DAILY Benzonatate 200 Mg Capsule 1 Cap PO TID PRN Montelukast Sodium 10 Mg Tablet 1 Tab PO DAILY Loratadine 10 Mg Tablet 1 Tab PO DAILY Fluticasone Propionate Nasal [place] (Fluticasone Propionate) [address]susp 1 Sprays NS BID Simvastatin 20 Mg Tablet 1 Tab PO QHS Vitals/I & O Vital Sign - Last 24 Hours 10/25/20 10/25/20 10/25/20 10/25/20 07:59 08:00 08:00 08:01 Pulse 75 75 Resp 17 B/P (MAP) 159/77 159/77 Pulse Ox 93 O2 Delivery Room Air Room Air 10/25/20 10/25/20 10/25/20 10/25/20 08:01 08:29 10:39 15:00 Temp 98.6 98.3 98.6 98.3 Pulse 75 78 67 Resp 18 18 20 B/P (MAP) 159/77 136/69 (91) 128/65 (86) Pulse Ox 93 91 91 O2 Delivery Room Air Room Air Room Air 10/25/20 10/25/20 10/25/20 10/25/20 19:39 20:00 22:32 22:39 Temp 98.5 98.7 98.5 98.7 Pulse 79 79 77 Resp 16 18 B/P (MAP) 123/66 (85) 123/66 119/63 (81) Pulse Ox 94 94 O2 Delivery Room Air Room Air Room Air Intake and Output 10/25/20 10/25/20 10/26/20 15:00 23:00 07:00 Intake Total 1210 ml 180 ml 0 ml Output Total 350 ml 251 ml 400 ml Balance 860 ml -71 ml -400 ml Justicifation of Admission Dx: Justifications for Admission: Justification of Admission Dx: Yes WILD SHAW MD Oct 26, 2020 07:32
[2020-10-26] MEDS: ZINC SULFATE 220 MG CAPSULE. PO SCH (08:56)
[2020-10-26] MEDS: ASCORBIC ACID 1,000 MG TABLET PO SCH ×2 (08:56→12:17)
[2020-10-26] MEDS: LACTOBACILLUS RHAMNOSUS GG 1 CAPSULE. PO SCH (08:56)
[2020-10-26] MEDS: FUROSEMIDE 40 MG TABLET. PO SCH (08:56)
[2020-10-26] MEDS: ASPIRIN CHEWABLE 81 MG TABLET. PO SCH (08:57)
[2020-10-26] MEDS: METOPROLOL TART IMMED RELEASE 25 MG TABLET. PO SCH (08:57)
[2020-10-26] MEDS: AMIODARONE HCL 200 MG TABLET. PO SCH (08:58)
[2020-10-26 09:00] LABS: POTASSIUM 4.1 mmol/L (3.5-5.1)
[2020-10-26] MEDS: PANTOPRAZOLE IV PUSH 40 MG VIAL. IVP SCH (09:00)
[2020-10-26] MEDS: SENNOSIDES/DOCUSATE 8.6/50MG TABLET. PO SCH (09:00)
[2020-10-26] MEDS: NYSTATIN TOPICAL POWDER 15GM BOTTLE. TP SCH (09:00)
[2020-10-26] MEDS: MULTIVITAMINS,THERAPEUTIC 5 ML ORAL LIQUID. PEG SCH (09:00)
[2020-10-26] MEDS: INSULIN GLARGINE SYRINGE. SQ SCH (09:05)
[2020-10-26 11:00] VITALS: BP 121/63
[2020-10-26] MEDS: PIPERACILLIN/TAZOBACTAM 3.375 GM in IV NORMAL SALINE 50ML 50 ML IV SCH (11:50)
[2020-10-26 12:04] LABS: ALBUMIN 3.1 g/dL (3.4-5.0); ALBUMIN/GLOBULIN RATIO 0.7 (1.0-1.7); CALCIUM 9.2 mg/dL (8.5-10.1); CREATININE 0.9 mg/dL (0.7-1.3); GFR 85.2; POTASSIUM 4.1 mmol/L (3.5-5.1); TOTAL BILIRUBIN 0.7 mg/dL (0.2-1.0); TOTAL PROTEIN 7.5 g/dL (6.4-8.2)
[2020-10-26] MEDS: ENOXAPARIN 40 MG/0.4 ML SYRINGE. SQ SCH (12:15)
[2020-10-26] MEDS: AA 4.25 %/CALCIUM/LYTES/D5W 1,000 ML IV SCH (12:18)
--- NOTE | 2020-10-26 12:32 | NUR ---
SS following up with discharge planning. SS reviewed pt chart and discussed with pt RN. Pt is currently on room air. COVID19 recovered. PT/OT recommended acute rehabilitation. Pt accepted at [facility], ; fax [phone]. Insurance authorization received. Discharge orders received and phoned and faxed to [facility]. Pt will discharge today and go to [facility] between 1300 and 1400. [facility] to provide transportation. Pt, pt's RN, and pt's spouse notified.
--- NOTE | 2020-10-26 14:10 | NUR ---
Discharge Note: SHANI PATTERSON Discharge instructions and discharge home medications reviewed with Other facility and a copy given. All questions have been answered and understanding verbalized. Patient discharged to [facility] with transport via wheelchair.
== END 2020-10-26 14:10 | DRG 870 ==
LOC: ER 13:59 → 5 NORTH 15:10 → 6 SOUTH 09-23 12:49 → 1 WEST ICU 09-23 21:53 → 6 SOUTH 10-18 14:01 → 1 WEST ICU 10-20 00:01 → 6 SOUTH 10-22 15:15
PROVIDERS: ADMIT Student in an Organized Health Care Education/Training Program; ATTEND Student in an Organized Health Care Education/Training Program
PROC: 5A1955Z Respiratory Ventilation, Greater than 96 Consecutive Hours (ICD-10-PCS; principal; 2020-09-23)
PROC: 0BH17EZ Insertion of Endotracheal Airway into Trachea, Via Natural or Artificial Opening (ICD-10-PCS; 2020-09-23)
PROC: 02HV33Z Insertion of Infusion Device into Superior Vena Cava, Percutaneous Approach (ICD-10-PCS; 2020-10-05)
PROC: 5A09457 Assistance with Respiratory Ventilation, 24-96 Consecutive Hours, Continuous Positive Airway Pressure (ICD-10-PCS; 2020-10-14)
PROC: 5A09357 Assistance with Respiratory Ventilation, Less than 24 Consecutive Hours, Continuous Positive Airway Pressure (ICD-10-PCS; 2020-10-18)
PROC: 5A09357 Assistance with Respiratory Ventilation, Less than 24 Consecutive Hours, Continuous Positive Airway Pressure (ICD-10-PCS; 2020-10-19)
DX: A41.89 Other specified sepsis (principal); U07.1 COVID-19; J12.82 Pneumonia due to coronavirus disease 2019; I50.43 Acute on chronic combined systolic (congestive) and diastolic (congestive) heart failure; J80 Acute respiratory distress syndrome; G72.81 Critical illness myopathy; G93.40 Encephalopathy, unspecified; I42.8 Other cardiomyopathies; L97.419 Non-pressure chronic ulcer of right heel and midfoot with unspecified severity; D69.59 Other secondary thrombocytopenia; E78.00 Pure hypercholesterolemia, unspecified; E78.5 Hyperlipidemia, unspecified; E87.5 Hyperkalemia; E87.6 Hypokalemia; I11.0 Hypertensive heart disease with heart failure; I25.10 Atherosclerotic heart disease of native coronary artery without angina pectoris; I27.20 Pulmonary hypertension, unspecified; I48.91 Unspecified atrial fibrillation; I49.3 Ventricular premature depolarization; M19.90 Unspecified osteoarthritis, unspecified site; R13.10 Dysphagia, unspecified; K21.9 Gastro-esophageal reflux disease without esophagitis; E11.621 Type 2 diabetes mellitus with foot ulcer; Z79.4 Long term (current) use of insulin; Z82.49 Family history of ischemic heart disease and other diseases of the circulatory system; Z95.1 Presence of aortocoronary bypass graft; I25.2 Old myocardial infarction
CPT/HCPCS: 96361; 96365; 96375; 99285; C8929; 36415; 36569; 36600; 71045; 74018; 74230; 80048; 80053; 82805; 82962; 83605; 83735; 83880; 84100; 84132; 84145; 84443; 84478; 84484; 85007; 85025; 85027; 85520; 86140; 87040; 87070; 87077; 87086; 87186; 87205; 93005; 94002; 94003; 94640; 94660; 94760; C9113; J0153; J0282; J0330; J0360; J1100; J1160; J1630; J1644; J1650; J1815; J1940; J2060; J2250; J2405; J2543; J2704; J3010; J3475; J3480; J3490; J7030; J7050; J7060; Q9956; 92526-GN; 92610-GN; 92611-GN; 97110-GO; 97110-GP; 97116-GP; 97168-GO; 97530-GO; 97530-GP; 97535-GO; G0378